=== PATIENT | male | born 1945 | race Caucasian/White ===

== ENCOUNTER → 2018-01-03 | Outpatient (CLI) | payer MEDICARE ==
[2018-01-03 14:49] LABS: Blood Urea Nitrogen 12 mg/dL (9-20)
--- NOTE | 2018-01-04 15:08 | CT ---
EXAMINATION TYPE: CT abdomen pelvis w con DATE OF EXAM: 01/03/2018 COMPARISON: NONE HISTORY: Patient complains of weight loss and epigastric pain after eating. CT DLP: 917 mGycm Automated exposure control for dose reduction was used. TECHNIQUE: Helical acquisition of images was performed from the lung bases through the pelvis. CONTRAST: Performed with Oral Contrast and with IV Contrast, patient injected with 100 mL of Isovue 300. FINDINGS: LUNG BASES: The lung bases demonstrate a right bulla and extensive centrilobular emphysematous change s. Scattered areas of subsegmental atelectasis are also noted. LIVER/GB: Focal area of hypoattenuation in segment IVb near the fissure for the falciform ligament mo st commonly represents focal fatty infiltration. Remainder of the liver also demonstrates generalized hepatic steatosis as the hepatic parenchymal enhancement is considerably less than that of the splee n. No cholelithiasis. No gallbladder wall thickening. PANCREAS: Pancreatic parenchymal atrophy is noted without ductal dilatation. SPLEEN: No significant abnormality is seen. ADRENALS: No significant abnormality is seen. KIDNEYS: Bilateral punctate hypoattenuated renal lesions are seen measuring less than 4 mm and too sm all to accurately characterize. Kidneys enhance and excrete symmetrically without hydronephrosis. FREE AIR: No free air is visualized. REPRODUCTIVE ORGANS: Prostate gland is enlarged and heterogenous containing central zone calcificatio ns and measuring 4.7 cm in transverse dimension. URINARY BLADDER: No significant abnormality is seen. PELVIC ADENOPATHY: No greater than 1 cm short axis lymph nodes are seen within the abdomen or pelvis . OSSEOUS STRUCTURES: No suspicious abnormality. Mild multilevel degenerative changes.. BOWEL: Scattered colonic diverticula are present without pericolonic fat stranding. Appendix is cont rast-filled and within normal limits. No dilated large or small bowel. OTHER: There is severe atherosclerosis of the abdominal aorta and its branches. IMPRESSION: 1. HEPATIC STEATOSIS WITHOUT FOCAL HEPATIC LESION. 2. MULTIPLE BILATERAL HYPOATTENUATED RENAL LESIONS THAT ARE TOO SMALL TO ACCURATELY CHARACTERIZE. NO SUSPICIOUS LESION AT THIS TIME. 3. EXTENSIVE EMPHYSEMA OF THE LUNG BASES.
== END ==
LOC: RADCTMAIN 14:00
PROVIDERS: ATTEND Internal Medicine Gastroenterology
DX: K76.0 Fatty (change of) liver, not elsewhere classified (principal); N28.9 Disorder of kidney and ureter, unspecified; J43.9 Emphysema, unspecified
CPT/HCPCS: 82565; 84520; 74177; 36415; Q9967

== ENCOUNTER → 2018-05-24 | Outpatient (CLI) | payer MEDICARE ==
--- NOTE | 2018-05-24 13:38 | CTL ---
EXAMINATION TYPE: CT Low Dose Lung DATE OF EXAM ORDERED: 05/24/2018 HISTORY: Personal history tobacco use. Lung cancer screening CT DLP: 40.[address] CTDI: 1.00 mGy Automated exposure control for dose reduction was used. SCREENING VISIT: 2 COMPARISON: Prior CT 07/09/2016 TECHNIQUE: Low dose computed tomography scan was performed through the chest at 1 mm thick sections a nd reconstructed images in the coronal plane at [address] DIAGNOSTIC QUALITY: Satisfactory FINDINGS: LUNG NODULES: None. LUNGS: COPD: Severity: Severe and extensive Fibrosis: Severity: Mild Lymph nodes: None Other findings: There are areas of scarring RIGHT PLEURAL SPACE: Effusion: None Calcification: None Thickening: There is biapical pleural thickening Pneumothorax: None LEFT PLEURAL SPACE: Effusion: None Calcification: None Thickening: None Pneumothorax: None HEART: Heart Size: Small Coronary calcification: Present and moderate Pericardial effusion: None OTHER FINDINGS: Upper abdomen: Stable Bony thorax: Unchanged Supraclavicular region: Normal Other: Abdominal aorta is mildly aneurysmal. IMPRESSION: Extensive emphysema is present, no evident lung mass. Coronary artery disease. Thoracic a ortic aneurysm. FOLLOW UP CT CHEST RECOMMENDATION: [address] LUNG RAD: 1
== END | disposition home or self-care (01) ==
LOC: RADCTMAIN 12:33
PROVIDERS: ATTEND Internal Medicine Critical Care Medicine
DX: Z12.2 Encounter for screening for malignant neoplasm of respiratory organs (principal); J43.9 Emphysema, unspecified; I25.10 Atherosclerotic heart disease of native coronary artery without angina pectoris; I71.2 Thoracic aortic aneurysm, without rupture; F17.200 Nicotine dependence, unspecified, uncomplicated

== ENCOUNTER 2019-05-16 08:53 | Day surgery (SDC) | payer MEDICARE ==
[2019-05-14 13:12] VITALS: BMI 16.6
[~2019-05-16 08:53] MED LIST: LACTATED RINGERS 1,000 ML IV SCH; LIDOCAINE 1% 20 ML VIAL (10MG/ML) FOR IV START INTRADERMA PRN
[2019-05-16 09:28] VITALS: TEMP 98.1
[2019-05-16] MEDS ORDERED: PROPOFOL 10 MG/ML 20 ML VIAL IV ONE (09:50)
[2019-05-16] MEDS ORDERED: LIDOCAINE 1% INJ 10MG/ML (20 ML MDV) ONE (09:50)
--- NOTE | 2019-05-16 10:03 | P.PCN ---
Date of Procedure: 05/16/19 Procedure(s) Performed: BRIEF HISTORY: Patient is a 73-year-old, pleasant, white male, scheduled for an upper endoscopy as a part of evaluation of dysphagia to solids and pills for the last few months duration.. PROCEDURE PERFORMED: Esophagogastroduodenoscopy with biopsy. PREOPERATIVE DIAGNOSIS: Intermittent dysphagia to solids and pills for the last few months duration. IV sedation per anesthesia. PROCEDURE: After informed consent was obtained, the patient was brought into the endoscopy unit. IV sedation was administered by Anesthesia under continuous monitoring. Initially the Olympus GIF-140 video endoscope was inserted into the mouth. Esophagus intubated without any difficulty. It was gradually advanced into the stomach and duodenum and carefully examined. The bulb and the second part of the duodenum appeared normal. The scope at this time was withdrawn to the stomach, adequately insufflated with air, and upon careful examination, mucosa of the antrum had mild gastritis and biopsies were done from this area. The, body, cardia and the fundus appeared normal. The scope was then withdrawn into the esophagus. The GE junction was located at 39 cm from the incisors. The esophagus appeared normal. There were no erosions or ulcerations seen. The proximal cervical esophagus was carefully examined and there was no obvious esophagitis, esophageal stricture or Zenker's diverticulum seen. Abscesses were done from the distal esophagus and the patient tolerated the procedure well. IMPRESSION: 1. Normal-appearing esophagus with no evidence of esophagitis or esophageal stricture. 2. Antral gastritis. RECOMMENDATIONS: The findings of this examination were discussed with the pat ient as well as his family. He was advised to follow with the biopsy results. He was advised to continue with a soft diet..
[2019-05-16 10:30] VITALS: BP 110/70; PULSE 54; RESP 18
== END 2019-05-16 10:59 | disposition home or self-care (01) ==
LOC: ORWHC2ENDO 08:53
PROVIDERS: ATTEND Internal Medicine Gastroenterology
DX: K29.50 Unspecified chronic gastritis without bleeding (principal); K20.9 Esophagitis, unspecified; I25.10 Atherosclerotic heart disease of native coronary artery without angina pectoris; J44.9 Chronic obstructive pulmonary disease, unspecified; G47.33 Obstructive sleep apnea (adult) (pediatric); I71.2 Thoracic aortic aneurysm, without rupture; Z79.51 Long term (current) use of inhaled steroids; Z79.82 Long term (current) use of aspirin; Z79.899 Other long term (current) drug therapy; Z87.891 Personal history of nicotine dependence; Z87.01 Personal history of pneumonia (recurrent); Z95.5 Presence of coronary angioplasty implant and graft; Z90.89 Acquired absence of other organs; Z90.49 Acquired absence of other specified parts of digestive tract
CPT/HCPCS: 88305; 88312; 43239; J2001; J2704

== ENCOUNTER → 2019-05-30 | Outpatient (CLI) | payer MEDICARE ==
--- NOTE | 2019-05-30 11:55 | FL ---
Modified barium swallow. HISTORY: Dysphagia. Modified barium swallow was performed with the department of speech pathology. The patient was prese nted with various consistencies of barium. There is no evidence for aspiration or penetration. Pooling of contrast within the valleculae and pi riform sinus. Full report is to follow from the department of speech pathology. Impression: No evidence for aspiration or penetration.
== END | disposition home or self-care (01) ==
LOC: RADFLMAIN 10:48
PROVIDERS: ATTEND Internal Medicine Gastroenterology
DX: R13.10 Dysphagia, unspecified (principal)
CPT/HCPCS: 74230

== ENCOUNTER 2019-06-13 17:05 | Observation (INO) | payer MEDICARE ==
[2019-06-13] MEDS ORDERED: SODIUM CHLORIDE 0.9% 1,000 ML IV STA (17:18)
--- NOTE | 2019-06-13 17:18 | ED ---
Chest Pain HPI - General Chief Complaint: Chest Pain Stated Complaint: chest pain Time Seen by Provider: 06/13/19 17:11 Source: patient, RN notes reviewed, old records reviewed Mode of arrival: wheelchair Limitations: no limitations - History of Present Illness Initial Comments: This is a 73-year-old male the ER for evaluation patient resents today for evaluation regards to chest pain persistent chest pain patient also complains of shortness of breath, not feeling well symptoms of been intermittent throughout the day which improved with nitro. He does have mild history of heart disease with prior history of stent. No other significant complaints no feelings of lightheadedness dizziness no feelings of syncope or near-syncope. No recent change in medications. Symptoms just began today MD Complaint: chest pain -: days(s) Onset: during rest Pain Location: substernal, left chest Pain Radiation: LUE Severity: moderate Severity scale (1-10): 7 Quality: tightness, heaviness Consistency: intermittent Improves With: nitroglycerin Worsens With: nothing Anginal Symptoms: nausea, dyspnea Other Symptoms: cough Treatments Prior to Arrival: none - Related Data Home Medications Medication Instructions Recorded Confirmed Aspirin EC [Ecotrin Low Dose] 81 mg PO HS 07/21/16 06/13/19 Atenolol [Tenormin] 25 mg PO Q48H 05/14/19 06/13/19 Fluticasone/Vilanterol [Breo 1 puff PO RT-DAILY 05/14/19 06/13/19 Ellipta 100-25 Mcg Inhaler] Multivitamins, Thera [Multivitamin 1 tab PO DAILY 05/14/19 06/13/19 (formulary)] Tiotropium Br/Olodaterol HCl 2 puff INHALATION RT-DAILY@1400 05/14/19 06/13/19 [Stiolto Respimat Inhal [place]] Furosemide [Lasix] 20 mg PO DAILY PRN 06/13/19 06/13/19 Omeprazole 20 mg PO BID 06/13/19 06/13/19 Vitamin B Complex 1 cap PO DAILY 06/13/19 06/13/19 Allergies Allergy/AdvReac Type Severity Reaction Status Date / Time No Known Allergies Allergy Verified 06/13/19 19:19 Review of Systems ROS Statement: Those systems with pertinent positive or pertinent negative responses have been documented in the HPI. ROS Other: All systems not noted in ROS Statement are negative. 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, PT STATED HE HAS ENLARGED AORTA(PER CT SCAN -THORACIC AORTIC ANEURYSM 4.2 CM), "HOARSNESS", History of Any Multi-Drug Resistant Organisms: None Reported Past Surgical History: Adenoidectomy, Appendectomy, Heart Catheterization With S tent, Hernia Repair, Orthopedic Surgery, Tonsillectomy Additional Past Surgical History / Comment(s): LET ROTATOR CUFF REPAIR,ANAL FISTULA REPAIR, EGD/COLONOSCOPY,MULTIPLE BASAL CELL 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,AGUILAR INGUINAL HERNIA REPAIR.RIGHT SHOULDER SURGERY X2 Past Anesthesia/Blood Transfusion Reactions: No Reported Reaction Date of Last Stent Placement:: 2005 Past Psychological History: No Psychological Hx Reported Smoking Status: Former smoker Past Alcohol Use History: Occasional Past Drug Use History: None Reported - Past Family History Father Family Medical History: Cancer Additional Family Medical History / Comment(s): TESTICULAR, BONE Mother Family Medical History: Cancer Additional Family Medical History / Comment(s): BONE General Exam Limitations: no limitations General appearance: alert, in no apparent distress Head exam: Present: atraumatic, normocephalic, normal inspection Eye exam: Present: normal appearance, PERRL, EOMI. Absent: scleral icterus, conjunctival injection, periorbital swelling ENT exam: Present: normal exam, mucous membranes moist Neck exam: Present: normal inspection. Absent: tenderness, meningismus, lymphadenopathy Respiratory exam: Present: normal lung sounds bilaterally. Absent: respiratory distress, wheezes, rales, rhonchi, stridor Cardiovascular Exam: Present: regular rate, normal rhythm, normal heart sounds. Absent: systolic murmur, diastolic murmur, rubs, gallop, clicks GI/Abdominal exam: Present: soft, normal bowel sounds. Absent: distended, tenderness, guarding, rebound, rigid Extremities exam: Present: normal inspection, full ROM, normal capillary refill. Absent: tenderness, pedal edema, joint swelling, calf tenderness Back exam: Present: normal inspection Neurological exam: Present: alert, oriented X3, CN II-XII intact Psychiatric exam: Present: normal affect, normal mood Skin exam: Present: warm, dry, intact, normal color. Absent: rash Course Vital Signs 06/13/19 06/13/19 06/13/19 17:08 18:00 19:00 Temperature 97.9 F Pulse Rate 60 52 L 55 L Respiratory 18 18 18 Rate Blood Pressure 98/63 112/73 125/83 O2 Sat by Pulse 94 L 94 L 96 Oximetry - Reevaluation(s) Reevaluation #1: 06/13/19 19:37 Medical record is reviewed Reevaluation #2: 06/13/19 19:37 Patient still with intermittent chest pain currently Reevaluation #3: 06/13/19 19:37 Patient denying significant shortness of breath - Consultations Consultation #1: Spoke with Dr. Pak, who is agreeable for admission Chest Pain MDM - MDM 73 male the ER for evaluation patient was essay for evaluation regards to chest pain patient found to have pneumonia and will admit for chest pain observation with history of heart disease, chest x-ray CTA chest positive for pneumonia negative for PE Disposition Clinical Impression: Acute exacerbation of chronic obstructive airways disease, Chest pain, Community acquired pneumonia Disposition: ADMITTED IP TO THIS HOSP Condition: Fair Is patient prescribed a controlled substance at d/c from ED?: No Referrals: Brendan Chan MD [Primary Care Provider] - 1-2 days
[2019-06-13 17:46] LABS: Basophils # (A) 0.3 k/uL (0-0.2); Basophils % (A) 3 %; Eosinophils # (A) 0.3 k/uL (0-0.7); Eosinophils % (A) 3 %; HGB 13.9 gm/dL (13.0-17.5); Lymphocytes # (A) 2.4 k/uL (1.0-4.8); Lymphocytes % (A) 20 %; MCHC 32.3 g/dL (31.0-37.0); MCV 102.1 fL (80.0-100.0); Macrocytosis Slight; Mean Platelet Volume 6.8; Monocytes # (A) 0.8 k/uL (0-1.0); Monocytes % (A) 7 %; Neutrophils # (A) 8.4 k/uL (1.3-7.7); Neutrophils % (A) 67 %; Platelet Count 276 k/uL (150-450); RBC 4.22 m/uL (4.30-5.90); RDW 12.8 % (11.5-15.5); WBC 12.5 k/uL (3.8-10.6)
[2019-06-13 17:56] LABS: ALT 18 U/L (21-72); AST 32 U/L (17-59); African American GFR (CKD) >90 (>60 ml/min/1.73 sqM); Albumin 4.1 g/dL (3.5-5.0); Alkaline Phosphatase 110 U/L (38-126); Anion Gap 11 mmol/L; Blood Urea Nitrogen 10 mg/dL (9-20); Calcium 9.4 mg/dL (8.4-10.2); Carbon Dioxide 26 mmol/L (22-30); Chloride 100 mmol/L (98-107); Creatine Kinase 59 U/L (55-170); Glucose 76 mg/dL (74-99); Magnesium 1.8 mg/dL (1.6-2.3); Non-African American GFR(CKD) >90 (>60 ml/min/1.73 sqM); Potassium 4.2 mmol/L (3.5-5.1); Sodium 137 mmol/L (137-145); Total Bilirubin 0.4 mg/dL (0.2-1.3); Total Protein 7.9 g/dL (6.3-8.2)
[2019-06-13 18:04] LABS: Partial Thromboplastin Time 26.4 sec (22.0-30.0); Prothrombin Time 10.6 sec (9.0-12.0)
[2019-06-13 18:08] LABS: D-Dimer 1.07 mg/L FEU (<0.60)
--- NOTE | 2019-06-13 18:08 | XR ---
EXAMINATION TYPE: XR chest 2V DATE OF EXAM: 06/13/2019 COMPARISON: 07/21/2016 HISTORY: 73-year-old male with chest pain TECHNIQUE: AP and lateral views FINDINGS: Heart upper limits of normal in size. Atherosclerotic arch calcifications. Diffuse interstitial promi nence. Hyperinflation with flattening of the hemidiaphragms. Small pleural effusions. Patchy peripher al left basilar opacity. Left hilar prominence. IMPRESSION: 1. COPD. Given interstitial changes and small bilateral pleural effusions, correlate for possible sup erimposed mild CHF. 2. Additional focal left basilar atelectasis versus infiltrate. Follow-up after treatment to ensure c learance. 3. Left hilar prominence probably projectional. Findings may reflect pulmonary arterial hypertension. Reassess on patient's follow-up exam after treatment.
--- NOTE | 2019-06-13 19:12 | CT ---
EXAMINATION TYPE: CT angio chest DATE OF EXAM: 06/13/2019 COMPARISON: 05/24/2018 HISTORY: 73-year-old male Chest pain and some difficulty breathing. Assess for PE. TECHNIQUE: Contiguous axial scanning of the chest performed with IV Contrast, patient injected with 1 00 mL of Isovue 370. Coronal/sagittal MIP reconstructions performed. CT DLP: 228 mGycm Automated exposure control for dose reduction was used. FINDINGS: Heart is normal size without pericardial effusion. No flattening of the interventricular septum or re flux of contrast into the hepatic veins. Coronary vessel calcifications are present in remarkable for coronary artery disease. Ectatic ascending aorta 3.6 cm. Mild atherosclerotic arch calcifications. Conventional arch vessel br anching anatomy. Large caliber to the main right and left pulmonary arteries are 3.0 cm each. Satisfactory opacificati on without evidence for pulmonary embolus. Borderline size 8mm left hilar and 1.3 cm subcarinal lymph nodes probably reactive. Increased interstitial changes with advanced emphysema. Irregular patchy opacity within the lingula a nd greater degree of patchy irregular airspace opacity posterior left base. No pleural effusion. Stable intrafissural lymph node measuring 1 cm right midlung. Visualized upper abdomen shows no gross abnormal body. Bones: Osseous destructive process. Mild superior endplate deformity of T7 appears chronic. IMPRESSION: 1. NO PULMONARY EMBOLUS. 2. COPD WITH ADVANCED EMPHYSEMA AND PULMONARY ARTERIAL HYPERTENSION. CAD. 3. IRREGULAR PATCHY DENSITY IN THE [place]A AND TO A GREATER EXTENT WITHIN THE POSTERIOR LEFT BASE. CO RRELATE FOR MULTIFOCAL PNEUMONIA. GIVEN THE IRREGULAR APPEARANCE, RECOMMEND FOLLOW-UP CT IN 3 MONTHS TO ENSURE CLEARANCE.
[2019-06-13] MEDS ORDERED: NITROGLYCERIN SL TABS 0.4 MG TAB SUBLINGUAL PRN (19:34)
[2019-06-13] MEDS ORDERED: IPRATROPIUM-ALBUTEROL 3 ML NEB INHALATION PRN (19:34)
[2019-06-13] MEDS ORDERED: AZITHROMYCIN 500 MG in SODIUM CHLORIDE 0.9% 250 ML IVPB STA (19:34)
[2019-06-13] MEDS ORDERED: PNEUMONIA PROTOCOL UTILIZED 1 EACH MISC PO PRN (19:34)
[2019-06-13] MEDS ORDERED: ASPIRIN 81 MG PO STA (19:34)
[2019-06-13] MEDS ORDERED: MORPHINE SULFATE 2 MG/ML SYRINGE IVP PRN (21:36)
[2019-06-14 07:13] VITALS: RESP 18
[2019-06-14 07:18] LABS: Cholesterol 142 mg/dL (<200); HDL Cholesterol 47 mg/dL (40-60); LDL Cholesterol,Calculated 85 mg/dL (0-99); Triglycerides 49 mg/dL (<150)
--- NOTE | 2019-06-14 07:42 | XR ---
EXAMINATION TYPE: XR chest 2V DATE OF EXAM: 06/14/2019 COMPARISON: Prior chest x-ray 06/13/[address] 06/13/2019 HISTORY: Pneumonia TECHNIQUE: Frontal and lateral views of the chest are obtained. FINDINGS: Prominent lung volumes consistent with underlying COPD are again seen. Interstitium is incr eased. Patchy basilar density is present on the left as noted on patient's prior CT. There is no pleu ral effusion or pneumothorax seen. The cardiac silhouette size is stable, heart is small. Aorta is d ense and ectatic. Prominence of pulmonary artery consistent with pulmonary artery hypertension. The o sseous structures are intact. IMPRESSION: Findings consistent with patient's history of pneumonia. Emphysema. Pulmonary artery hyp ertension.
[2019-06-14] MEDS ORDERED: ENOXAPARIN 40 MG/0.4 ML SYRINGE SQ SCH (09:00)
[2019-06-14] MEDS ORDERED: ASPIRIN 325 MG TAB PO SCH (09:00)
[2019-06-14] MEDS ORDERED: AZITHROMYCIN 500 MG TAB PO SCH (09:00)
--- NOTE | 2019-06-14 10:53 | P.CRDCN ---
History of Present Illness History of present illness: HISTORY OF PRESENTING ILLNESS This is a pleasant 73-year-old male past medical history significant for coronary artery disease status post stent placement to the mid RCA 2008, dyslipidemia, hypertension, COPD and former nicotine dependence. The patient states he quit smoking in March 2019 with a history of smoking since he was 10 years old. He presented with pleuritic chest pain and shortness of breath. He follows in the office with Dr. Scales. We have been asked to see him in consultation for chest pain. He is seen and examined resting comfortably in bed in no acute distress. He complains of a sharp pain in the left thoracic region with intermittent episodes of sharp pain on the right and in the middle of the chest. The pain radiates through to the back at times. It is described as a sharp pain that is worse with deep inspiration or movement of his torso. He also complains of increasing shortness of breath at rest and with exertion. He denies any significant cough, no palpitations, dizziness, nausea, vomiting or diaphoresis. He continues to have some mild sharp chest discomfort at times but states it has improved since admission. DIAGNOSTICS EKG reveals sinus bradycardia with first-degree AV block heart rate of 50, right axis deviation, no acute ST or T-wave abnormalities.. Chest xray on admission reveals COPD, left basilar atelectasis versus infiltrate and left hilar prominence. Repeat. Today reveals pneumonia, emphysema and pulmonary artery hypertension. CTA negative for pulmonary embolism. COPD and pulmonary artery hypertension, irregular patchy density reflective of possible multifocal pneumonia. Laboratory reviewed, CBC 12.5, hemoglobin 13.9, platelets 12.8, was d-dimer 1.07, sodium 137, potassium 4.2, creatinine 0.5, magnesium 1.8, cardiac enzymes negative 3, proBNP 505, LDL 85 and HDL 47. Current cardiac medications include aspirin 81 mg daily, atenolol 25 mg every other day, Lasix 20 mg daily as needed. Most recent stress test performed in the office in April 2019 reveals preserved LV systolic function with ejection fraction 55%. Most recent Lexiscan stress test performed in the office April 2017 was negative for reversible cardiac ischemia. REVIEW OF SYSTEMS At the time of my exam: CONSTITUTIONAL: Denies fever or chills. CARDIOVASCULAR: Complains of pleuritic pain and shortness of breath. Denies orthopnea, PND or palpitations. RESPIRATORY: Denies cough. GASTROINTESTINAL: Denies abdominal pain, diarrhea, constipation, nausea or vomiting. MUSCULOSKELETAL: Denies myalgias. NEUROLOGIC: Denies numbness, tingling or weakness. ENDOCRINE: Denies fatigue, weight change, polydipsia or polyurina. GENITOURINARY: Denies burning, hematuria or urgency with micturation. HEMATOLOGIC: Denies history of anemia or bleeding. PHYSICAL EXAMINATION Blood pressure 125/75 heart rate 52 afebrile and maintaining oxygen saturaiton on nasal cannula. CONSTITUTIONAL: No apparent distress. Frail. HEENT: Head is normocephalic. Pupils are equal, round. Sclerae anicteric. Mucous membranes of the mouth are moist. No JVD. No carotid bruit. CHEST EXAMINATION: Diminished bilaterally with prolonged expiration. Lungs are clear to auscultation. No chest wall tenderness is noted on palpation with intermittent sharp pain with deep breathing. HEART EXAMINATION: Regular rate and rhythm. S1, S2 heard. No murmurs, gallops or rub. ABDOMEN: Soft, nontender. Positive bowel sounds. EXTREMITIES: 2+ peripheral pulses, no lower extremity edema and no calf tenderness. NEUROLOGIC EXAMINATION: Patient is awake, alert and oriented x3. ASSESSMENT Chest pain, pleuritic. Atypical for angina. An acute coronary event has been ruled out. Pneumonia COPD Frail, BMI 17 History of coronary artery disease s/p PCI RCA Hypertension Dyslipidemia Former nicotine dependence PLAN An acute coronary event has been ruled out. Pain is atypical for angina and likely related to underlying pneumonia. Ongoing medical management. Follow up with Dr. Scales upon discharge. Thank you kindly for this consultation. Nurse Practitioner note has been reviewed, I agree with a documented findings and plan of care. Patient was seen and examined. 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, PT STATED HE HAS ENLARGED AORTA(PER CT SCAN -THORACIC AORTIC ANEURYSM 4.2 CM), "HOARSNESS", History of Any Multi-Drug Resistant Organisms: None Reported Past Surgical History: Adenoidectomy, Appendectomy, Heart Catheterization With Stent, Hernia Repair, Orthopedic Surgery, Tonsillectomy Additional Past Surgical History / Comment(s): LET ROTATOR CUFF REPAIR,ANAL FISTULA REPAIR, EGD/COLONOSCOPY,MULTIPLE BASAL CELL 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,AGUILAR INGUINAL HERNIA REPAIR.RIGHT SHOULDER SURGERY X2 Past Anesthesia/Blood Transfusion Reactions: No Reported Reaction Date of Last Stent Placement:: 2005 APPROX Past Psychological History: No Psychological Hx Reported Smoking Status: Former smoker Past Alcohol Use History: Occasional Additional Past Alcohol Use History / Comment(s): STARTED SMOKING AT AGE 12 SMOKED 1.5 PPD, QUIT MAR 2019. DRINKS TWO DRINKS 3 TIMES A WEEK Past Drug Use History: None Reported - Past Family History Father Family Medical History: Cancer Additional Family Medical History / Comment(s): TESTICULAR, BONE Mother Family Medical History: Cancer Additional Family Medical History / Comment(s): BONE Medications and Allergies Home Medications Medication Instructions Recorded Confirmed Type Aspirin EC [Ecotrin Low Dose] 81 mg PO HS 07/21/16 06/13/19 History Atenolol [Tenormin] 25 mg PO Q48H 05/14/19 06/13/19 History Fluticasone/Vilanterol [Breo 1 puff PO RT-DAILY 05/14/19 06/13/19 History Ellipta 100-25 Mcg Inhaler] Multivitamins, Thera [Multivitamin 1 tab PO DAILY 05/14/19 06/13/19 History (formulary)] Tiotropium Br/Olodaterol HCl 2 puff INHALATION RT-DAILY@1400 05/14/19 06/13/19 History [Stiolto Respimat Inhal [place]] Furosemide [Lasix] 20 mg PO DAILY PRN 06/13/19 06/13/19 History Omeprazole 20 mg PO BID 06/13/19 06/13/19 History Vitamin B Complex 1 cap PO DAILY 06/13/19 06/13/19 History Allergies Allergy/AdvReac Type Severity Reaction Status Date / Time No Known Allergies Allergy Verified 06/13/19 19:19 Physical Exam Vitals: Vital Signs Temp Pulse Pulse Pulse Resp BP BP 06/14/19 07:11 97.6 F 52 L 18 125/75 06/14/19 04:00 98.2 F 55 L 55 L 20 101/63 06/14/19 00:00 22 06/13/19 23:50 97.4 F L 62 18 102/59 06/13/19 20:35 24 06/13/19 20:15 97.6 F 60 18 154/78 06/13/19 20:00 97.9 F 53 L 18 137/82 06/13/19 19:00 55 L 18 125/83 06/13/19 18:00 52 L 18 112/73 06/13/19 17:08 97.9 F 60 18 98/63 Pulse Ox 06/14/19 07:11 93 L 06/14/19 04:00 98 06/14/19 00:00 06/13/19 23:50 96 06/13/19 20:35 06/13/19 20:15 93 L 06/13/19 20:00 97 06/13/19 19:00 96 06/13/19 18:00 94 L 06/13/19 17:08 94 L Intake and Output 06/13/19 06/14/19 06/14/19 22:59 06:59 14:59 Intake Total 180 Output Total 300 Balance -300 180 Intake: Oral 180 Output: Urine 300 Other: # Voids 1 1 Weight 54.431 kg Results 06/13/19 17:35 06/13/19 17:35 Cardiac Enzymes 06/13/19 06/13/19 06/14/19 Range/Units 17:35 17:35 00:12 AST 32 (17-59) U/L Troponin I <0.012 <0.012 (0.000-0.034) ng/mL 06/14/19 Range/Units 05:22 AST (17-59) U/L Troponin I <0.012 (0.000-0.034) ng/mL Coagulation 06/13/19 Range/Units 17:35 PT 10.6 (9.0-12.0) sec APTT 26.4 (22.0-30.0) sec Lipids 06/14/19 Range/Units 05:22 Triglycerides 49 (<150) mg/dL Cholesterol 142 (<200) mg/dL HDL Cholesterol 47 (40-60) mg/dL CBC 06/13/19 Range/Units 17:35 WBC 12.5 H (3.8-10.6) k/uL RBC 4.22 L (4.30-5.90) m/uL Hgb 13.9 (13.0-17.5) gm/dL Hct 43.0 (39.0-53.0) % Plt Count 276 (150-450) k/uL Comprehensive Metabolic Panel 06/13/19 Range/Units 17:35 Sodium 137 (137-145) mmol/L Potassium 4.2 (3.5-5.1) mmol/L Chloride 100 (98-107) mmol/L Carbon Dioxide 26 (22-30) mmol/L BUN 10 (9-20) mg/dL Creatinine 0.58 L (0.66-1.25) mg/dL Glucose 76 (74-99) mg/dL Calcium 9.4 (8.4-10.2) mg/dL AST 32 (17-59) U/L ALT 18 L (21-72) U/L Alkaline Phosphatase 110 (38-126) U/L Total Protein 7.9 (6.3-8.2) g/dL Albumin 4.1 (3.5-5.0) g/dL Current Medications Generic Name Dose Route Start Last Admin Trade Name Freq PRN Reason Stop Dose Admin Albuterol/Ipratropium 3 ml 06/13/19 19:34 Duoneb 0.5 Mg-3 Mg/3 Ml Soln INHALATION RT-Q4H PRN shortness of breath Aspirin 325 mg 06/14/19 09:00 06/14/19 09:05 Aspirin PO 325 mg DAILY ARSH Administration Azithromycin 500 mg 06/14/19 09:00 06/14/19 09:05 Zithromax PO 500 mg DAILY ARSH Administration Enoxaparin Sodium 40 mg 06/14/19 09:00 06/14/19 09:05 Lovenox SQ 40 mg DAILY ARSH Administration Ceftriaxone Sodium 1 gm/ 50 mls @ 100 mls/hr 06/14/19 09:00 06/14/19 09:05 Sodium Chloride IVPB 06/17/19 09:01 100 mls/hr Q24HR ARSH Administration Miscellaneous Information 1 each 06/13/19 19:34 Pneumonia Protocol Utilized PO ONCE PRN Per Protocol Morphine Sulfate 2 mg 06/13/19 21:36 Morphine Sulfate (Inj) IVP Q4H PRN Pain/Discomfort Nitroglycerin 0.4 mg 06/13/19 19:34 Nitrostat SUBLINGUAL Q5M PRN Chest Pain Intake and Output 06/13/19 06/14/19 06/14/19 22:59 06:59 14:59 Intake Total 180 Output Total 300 Balance -300 180 Intake: Oral 180 Output: Urine 300 Other: # Voids 1 1 Weight 54.431 kg 06/13/19 17:35 06/13/19 17:35
[2019-06-14 11:19] VITALS: BP 114/71; PULSE 66; TEMP 97.7
[2019-06-14] MEDS ORDERED: PANTOPRAZOLE 40 MG/10 ML VIAL IVP SCH (12:30)
--- NOTE | 2019-06-14 15:37 | P.HPIM ---
History of Present Illness H&P Date: 06/14/19 Chief Complaint: Ribcage pain History of physical and discharge summary This is a 73-year-old cachectic gentleman with history of CAD, chest pain, angina, COPD, osteoarthritis, pneumonia, prior nicotine dependence, EtOH abuse, presented to the ER with left chest, nipple line stabbing pain radiating to the right chest, further radiating to mid sternal, awakened him from sleep at 5 AM yesterday morning accompanied by increased shortness of breath. Reports pain intensifies with inspiration, exertion. Throughout the day patient took a total of 3 nitroglycerin sublingual with no relief. Denies increased coughing, fevers or chills. Denies being around anyone ill. Afebrile, WBC 12.5 .Denies lightheadedness, dizziness or focal deficits. VSS. Maintaining O2 sats in the high 90s on 2 L nasal cannula. Patient wears 2 L nasal cannula every night and when necessary throughout the day .Troponins negative 3, EKG reported sinus bradycardia, first-degree AV block. Chest x-ray on admission reported COPD, left basilar atelectasis versus infiltrate and left hilar prominence. Follow-up chest x-ray reported pneumonia, emphysema and pulmonary artery hypertension. D- dimer elevated, 1.07. CTA negative for PE, reporting irregular patchy density, possible multifocal pneumonia of left lobe. Reports he recently saw someone and had echo performed 4 weeks ago -records being obtained .Patient recently quit smoking in March 2019-reports he had smoked up to one and a half packs per day 61 years. Consumes 3 cocktails of rye whiskey every Tuesdayday Tuesday at the [employer]. He reports chronic dysphagia, negative recent EGD [address] Linh Staples. Proceeded with barium swallow reporting no aphthous of aspiration, penetration. Pooling of contract noted within the valleculae/piriform sinus. Patient also reports chronic decompensation, unable to ambulate beyond 20 feet. Electrolytes, renal function within normal limits hemoglobin 13.9, platelets 276. Currently reports bilateral posterior shoulder blade pain, no anterior chest pain. Cardiology consulted. Review of Systems ROS Statement: Those systems with pertinent positive or pertinent negative responses have been documented in the HPI. ROS Other: All systems not noted in ROS Statement are negative. 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, PT STATED HE HAS ENLARGED AORTA(PER CT SCAN -THORACIC AORTIC ANEURYSM 4.2 CM), "HOARSNESS", History of Any Multi-Drug Resistant Organisms: None Reported Past Surgical History: Adenoidectomy, Appendectomy, Heart Catheterization With Stent, Hernia Repair, Orthopedic Surgery, Tonsillectomy Additional Past Surgical History / Comment(s): LET ROTATOR CUFF REPAIR,ANAL FISTULA REPAIR, EGD/COLONOSCOPY,MULTIPLE BASAL CELL 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,AGUILAR INGUINAL HERNIA REPAIR.RIGHT SHOULDER SURGERY X2 Past Anesthesia/Blood Transfusion Reactions: No Reported Reaction Date of Last Stent Placement:: 2005 Past Psychological History: No Psychological Hx Reported Smoking Status: Former smoker Past Alcohol Use History: Occasional Additional Past Alcohol Use History / Comment(s): STARTED SMOKING AT AGE 12 SMOKED 1.5 PPD, QUIT MAR 2019. DRINKS TWO DRINKS 3 TIMES A WEEK Past Drug Use History: None Reported - Past Family History Father Family Medical History: Cancer Additional Family Medical History / Comment(s): TESTICULAR, BONE Mother Family Medical History: Cancer Additional Family Medical History / Comment(s): BONE Medications and Allergies Home Medications Medication Instructions Recorded Confirmed Type Aspirin EC [Ecotrin Low Dose] 81 mg PO HS 07/21/16 06/13/19 History Atenolol [Tenormin] 25 mg PO Q48H 05/14/19 06/13/19 History Fluticasone/Vilanterol [Breo 1 puff PO RT-DAILY 05/14/19 06/13/19 History Ellipta 100-25 Mcg Inhaler] Multivitamins, Thera [Multivitamin 1 tab PO DAILY 05/14/19 06/13/19 History (formulary)] Tiotropium Br/Olodaterol HCl 2 puff INHALATION RT-DAILY@1400 05/14/19 06/13/19 History [Stiolto Respimat Inhal [place]] Furosemide [Lasix] 20 mg PO DAILY PRN 06/13/19 06/13/19 History Omeprazole 20 mg PO BID 06/13/19 06/13/19 History Vitamin B Complex 1 cap PO DAILY 06/13/19 06/13/19 History Acetaminophen Tab [Tylenol Tab] 650 mg PO Q6H PRN #1 tablet 06/14/19 Rx Azithromycin [Zithromax] 500 mg PO DAILY #5 tab 06/14/19 Rx predniSONE 20 mg PO DAILY #10 tab 06/14/19 Rx Allergies Allergy/AdvReac Type Severity Reaction Status Date / Time No Known Allergies Allergy Verified 06/13/19 19:19 Physical Exam Vitals: Vital Signs Temp Pulse Pulse Pulse Resp BP BP 06/14/19 11:18 97.7 F 66 18 114/71 06/14/19 07:11 97.6 F 52 L 18 125/75 06/14/19 04:00 98.2 F 55 L 55 L 20 101/63 06/14/19 00:00 22 06/13/19 23:50 97.4 F L 62 18 102/59 06/13/19 20:35 24 06/13/19 20:15 97.6 F 60 18 154/78 06/13/19 20:00 97.9 F 53 L 18 137/82 06/13/19 19:00 55 L 18 125/83 06/13/19 18:00 52 L 18 112/73 06/13/19 17:08 97.9 F 60 18 98/63 Pulse Ox 06/14/19 11:18 98 06/14/19 07:11 93 L 06/14/19 04:00 98 06/14/19 00:00 06/13/19 23:50 96 06/13/19 20:35 06/13/19 20:15 93 L 06/13/19 20:00 97 06/13/19 19:00 96 06/13/19 18:00 94 L 06/13/19 17:08 94 L Intake and Output 06/13/19 06/14/19 06/14/19 22:59 06:59 14:59 Intake Total 420 Output Total 300 900 Balance -300 -480 Intake: Oral 420 Output: Urine 300 900 Other: # Voids 1 1 Weight 54.431 kg PHYSICAL EXAM: VITAL SIGNS: As above GENERAL: Cachectic, frail 73-year-old male, sitting up in bed, no acute distress HEENT: Conjunctivae normal. eyes normal. NECK: No JVD. No thyroid enlargement. No LNs CARDIOVASCULAR: S1, S2 regular.. No murmur RESPIRATION: Breath sounds diminished in the bases. No rhonchi or crackles. No wheezing. ABDOMEN: Soft, nontender . No guarding. no masses palpable. No ascites, No hepatosplenomegaly.Bowel sounds heard. LEGS: No edema. no swelling PSYCHIATRY: Alert and oriented X3, mood and affect normal. NERVOUS SYSTEM: Cranial N 2-12 grossly normal. Moves all 4 limbs. Diffuse weakness No focal deficits. Strength and sensation grossly intact.. Skin: no lesions, no rash Lymphatic system. No LN neck axilla. Results CBC & Chem 7: 06/13/19 17:35 06/13/19 17:35 Labs: Abnormal Lab Results - Last 24 Hours (Table) 06/13/19 06/13/19 06/13/19 Range/Units 17:35 17:35 17:35 WBC 12.5 H (3.8-10.6) k/uL RBC 4.22 L (4.30-5.90) m/uL MCV 102.1 H (80.0-100.0) fL Neutrophils # 8.4 H (1.3-7.7) k/uL Basophils # 0.3 H (0-0.2) k/uL D-Dimer 1.07 H (<0.60) mg/L FEU Creatinine 0.58 L (0.66-1.25) mg/dL ALT 18 L (21-72) U/L Thrombosis Risk Factor Assmnt - Choose All That Apply Any of the Below Risk Factors Present?: Yes Each Risk Factor Represents 2 Points: Age 61-74 years Other congenital or acquired thrombophilia - If yes, enter type in comment: No Thrombosis Risk Factor Assessment Total Risk Factor Score: 2 Thrombosis Risk Factor Assessment Level: Low Risk Assessment and Plan Assessment: Atypical chest pain, pleuritic in nature. acute coronary syndrome ruled out as per cardiology, secondary to suspected left multifocal pneumonia, community- acquired, possibly aspiration. Irregular patchy density in the lingula and within the posterior left base, possible multifocal pneumonia. OP Follow-up CT in 3 months secondary to a regular appearance, with PCP. COPD with advanced emphysema Pulmonary arterial hypertension CAD, history of cardiac stent Extended ascending aorta 3.6 cm Borderline left hilar and subcarinal lymph nodes, probably reactive Moderate protein calorie malnutrition, BMI 17.2 Chronic dysphagia Hypertension Hyperlipidemia Former nicotine dependence Alcohol use Plan: Continue current medication regime ,monitoring and symptomatic treatment. All meds have been reviewed and resumed accordingly. GI and DVT prophylaxis in place. Evaluated by cardiology with no intervention recommended at this time, further outpatient follow-up recommended. Cleared by cardiology for discharge. Patient is being discharged home on antibiotics, steroids,continue on PPI, instructions to follow-up at the PCPs office on either Tuesday or Tuesday prior to the holiday. Patient was evaluated by physical therapy and received muscle strengthening exercises that he could perform at home. Patient instructed to proceed with scheduling speech therapy as previously ordered. Diet intake encouraged including 3 protein shakes daily with alcohol cessation addressed. Patient is being discharged home in a stable condition with guarded prognosis. The impression and plan of care has been dictated as directed. : I performed a history and examination of this patient, discussed the same with the dictator. I agree with the dictator's note ,documented as a scribe. Any additional findings or plans will be noted.
[2019-06-15] MEDS ORDERED: PANTOPRAZOLE 40 MG TABLET PO SCH (07:30)
== END 2019-06-14 14:35 | disposition home or self-care (01) ==
LOC: EC 17:05 → 1SOBS 19:35
PROVIDERS: ADMIT Family Medicine; ATTEND Family Medicine
DX: J43.9 Emphysema, unspecified (principal); J18.9 Pneumonia, unspecified organism; R07.9 Chest pain, unspecified; E44.0 Moderate protein-calorie malnutrition; Z68.1 Body mass index [BMI] 19.9 or less, adult; E78.5 Hyperlipidemia, unspecified; I10 Essential (primary) hypertension; I25.10 Atherosclerotic heart disease of native coronary artery without angina pectoris; I27.21 Secondary pulmonary arterial hypertension; I44.0 Atrioventricular block, first degree; R64 Cachexia; Z79.82 Long term (current) use of aspirin; Z79.899 Other long term (current) drug therapy; Z85.828 Personal history of other malignant neoplasm of skin; Z87.891 Personal history of nicotine dependence; Z95.5 Presence of coronary angioplasty implant and graft
CPT/HCPCS: 96367; 96372; 96375; 96361; 96365; 99285; 36415; 93005; 97110; 97162; 85379; 83880; 80061; 80053; 82550; 83690; 83735; 84484 ×2; 85025; 85610; 85730; 87040; 71046 ×2; 71275; G0378 ×2; J0456; J1650; J0696 ×2; J2270; C9113; Q9967

== ENCOUNTER → 2019-07-02 | Outpatient (CLI) | payer MEDICARE ==
--- NOTE | 2019-07-03 09:27 | XR ---
EXAMINATION TYPE: XR chest 2V DATE OF EXAM: 07/02/2019 COMPARISON: Prior chest x-ray 06/14/[address] 06/13/2019 HISTORY: Shortness of breath, hypoxia, pneumonia TECHNIQUE: Frontal and lateral views of the chest are obtained. FINDINGS: Hyperinflation is consistent with underlying COPD. There is blunting of the left costophre al angle as noted on prior exam. Prominence of the pulmonary artery is stable consistent with pulmon chavez artery hypertension, the aorta is dense, aneurysmal. Heart is small. No evident pneumothorax. The re are coronary artery calcifications. IMPRESSION: Emphysema. There may be some residual basilar atelectasis or pneumonia, difficult to exc lude small effusion. Pulmonary artery hypertension. Aortic aneurysm.
== END | disposition home or self-care (01) ==
LOC: RADXRMAIN 15:59
PROVIDERS: ATTEND Family Medicine
DX: J43.9 Emphysema, unspecified (principal); G47.36 Sleep related hypoventilation in conditions classified elsewhere; I27.21 Secondary pulmonary arterial hypertension; I71.9 Aortic aneurysm of unspecified site, without rupture
CPT/HCPCS: 71046

== ENCOUNTER → 2019-08-09 | Outpatient (CLI) | payer MEDICARE ==
--- NOTE | 2019-08-09 14:57 | XR ---
EXAM TYPE: LUMBAR SPINE X RAY SERIES COMPARISON: NONE HISTORY: Pain TECHNIQUE: 3 views are submitted. FINDINGS: Subsegmental changes at the lung bases. There is hypertrophic and degenerative disc disease at all le vels compatible with multilevel mild degenerative disc disease. Vascular calcifications of the aorta measuring a maximal dimension of 2.8 cm. Facet arthropathy noted. No compression deformities. IMPRESSION: 1. Multilevel mild degenerative disc disease and facet arthropathy. 2. Abdominal aortic ectasia measuring 2.8 cm. 3. Basilar consolidation correlate for atelectasis versus infiltrate.
== END | disposition home or self-care (01) ==
LOC: RAD 14:32
PROVIDERS: ATTEND Family Medicine
DX: M51.36 Other intervertebral disc degeneration, lumbar region (principal); M46.96 Unspecified inflammatory spondylopathy, lumbar region; I77.811 Abdominal aortic ectasia
CPT/HCPCS: 72100

== ENCOUNTER 2019-08-30 10:23 | Inpatient (IN) | payer MEDICARE ==
[2019-08-30] MEDS ORDERED: ADENOSINE 3 MG/ML 2 ML VIAL IVP ONE (10:33)
[2019-08-30] MEDS ORDERED: DILTIAZEM 5 MG/ML 5 ML VIAL IVP STA (10:47)
[2019-08-30] MEDS ORDERED: SODIUM CHLORIDE 0.9% 1,000 ML IV STA (10:48)
[2019-08-30 11:08] LABS: Basophils # (A) 0.3 k/uL (0-0.2); Basophils % (A) 2 %; Eosinophils # (A) 0.3 k/uL (0-0.7); Eosinophils % (A) 2 %; HCT 44.3 % (39.0-53.0); HGB 14.4 gm/dL (13.0-17.5); Lymphocytes # (A) 2.9 k/uL (1.0-4.8); Lymphocytes % (A) 23 %; MCH 32.4 pg (25.0-35.0); MCHC 32.5 g/dL (31.0-37.0); MCV 99.8 fL (80.0-100.0); Mean Platelet Volume 8.8; Monocytes # (A) 0.7 k/uL (0-1.0); Monocytes % (A) 6 %; Neutrophils # (A) 8.3 k/uL (1.3-7.7); Neutrophils % (A) 65 %; Platelet Count 245 k/uL (150-450); RBC 4.44 m/uL (4.30-5.90); RDW 12.2 % (11.5-15.5); WBC 12.9 k/uL (3.8-10.6)
[2019-08-30 11:26] LABS: ALT 28 U/L (4-49); AST 43 U/L (17-59); African American GFR (CKD) >90 (>60 ml/min/1.73 sqM); Albumin 4.3 g/dL (3.5-5.0); Alkaline Phosphatase 162 U/L (38-126); Anion Gap 12 mmol/L; Blood Urea Nitrogen 17 mg/dL (9-20); Calcium 9.6 mg/dL (8.4-10.2); Carbon Dioxide 27 mmol/L (22-30); Chloride 100 mmol/L (98-107); Creatine Kinase 51 U/L (55-170); Glucose 84 mg/dL (74-99); Magnesium 1.9 mg/dL (1.6-2.3); Non-African American GFR(CKD) 88 (>60 ml/min/1.73 sqM); Potassium 4.2 mmol/L (3.5-5.1); Sodium 139 mmol/L (137-145); Total Bilirubin 0.7 mg/dL (0.2-1.3)
[2019-08-30 11:29] LABS: Partial Thromboplastin Time 25.2 sec (22.0-30.0); Prothrombin Time 10.8 sec (9.0-12.0)
--- NOTE | 2019-08-30 11:34 | XR ---
EXAMINATION TYPE: XR chest 2V DATE OF EXAM: 08/30/2019 COMPARISON: 07/02/2019 TECHNIQUE: PA and lateral views submitted. HISTORY: Dysrhythmia FINDINGS: Hyperinflation of the lungs. Atherosclerotic change of aorta. Right apical pleural thickening. Right- sided consolidation. Hyperinflation suggests COPD. Left-sided small effusion or pleural thickening. N o overt failure. IMPRESSION: 1. Increasing right-sided infiltrate correlate for pneumonia. 2. COPD with stable left-sided pleural effusion or thickening.
--- NOTE | 2019-08-30 12:25 | ED ---
Arrhythmia/Palpitations HPI - General Chief Complaint: Arrhythmia/Palpitations Stated Complaint: sob Source: patient Mode of arrival: ambulatory - History of Present Illness Initial Comments: The patient is a 73-year-old male with past medical history of coronary artery disease and COPD who presents to the emergency room with reported heart rate. He sees Dr. Chan in office. He states Dr. Chan recently was sent to see Dr. Valdez because of a aortic aneurysm that was seen on chest x-ray. He had his appointment today. He showed up in office and his vitals were obtained which showed the patient had a heart rate of 190s. Because of this they immediately sent him to the nurse for evaluation. The patient does report palpitations and shortness of breath at this time. States he has this same symptom every night before he goes to bed. States that when he gets undressed that his heart race. He will lay in bed for approximately 10 minutes and his symptoms were resolved. He denies a history of cardiac arrhythmia. No chest pain with the episode. Denies any headaches or visual changes. No nausea or vomiting. No ripping or tearing sensation to his back. Denies any numbness, we akness in his lower extremities. He does have 1 stent in his heart. Sees Dr. Scales in office. There are no other alleviating, Perceptin or modifying factors - Related Data Home Medications Medication Instructions Recorded Confirmed Aspirin EC [Ecotrin Low Dose] 81 mg PO DAILY 07/21/16 08/30/19 Fluticasone/Vilanterol [Breo 1 puff PO RT-DAILY 05/14/19 08/30/19 Ellipta 100-25 Mcg Inhaler] Multivitamins, Thera [Multivitamin 1 tab PO DAILY 05/14/19 08/30/19 (formulary)] Tiotropium Br/Olodaterol HCl 2 puff INHALATION RT-DAILY@1400 05/14/19 08/30/19 [Stiolto Respimat Inhal [place]] Omeprazole 20 mg PO BID 06/13/19 08/30/19 Vitamin B Complex 1 cap PO DAILY 06/13/19 08/30/19 Allergies Allergy/AdvReac Type Severity Reaction Status Date / Time No Known Allergies Allergy Verified 08/30/19 11:37 Review of Systems ROS Statement: Those systems with pertinent positive or pertinent negative responses have been documented in the HPI. ROS Other: All systems not noted in ROS Statement are negative. 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, PT STATED HE HAS ENLARGED AORTA(PER CT SCAN -THORACIC AORTIC ANEURYSM 4.2 CM), "HOARSNESS", History of Any Multi-Drug Resistant Organisms: None Reported Past Surgical History: Adenoidectomy, Appendectomy, Heart Catheterization With Stent, Hernia Repair, Orthopedic Surgery, Tonsillectomy Additional Past Surgical History / Comment(s): LET ROTATOR CUFF REPAIR,ANAL FISTULA REPAIR, EGD/COLONOSCOPY,MULTIPLE BASAL CELL 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,AGUILAR INGUINAL HERNIA REPAIR.RIGHT SHOULDER SURGERY X2 Past Anesthesia/Blood Transfusion Reactions: No Reported Reaction Date of Last Stent Placement:: 2005 Past Psychological History: No Psychological Hx Reported Smoking Status: Former smoker Past Alcohol Use History: Occasional Past Drug Use History: None Reported - Past Family History Father Family Medical History: Cancer Additional Family Medical History / Comment(s): TESTICULAR, BONE Mother Family Medical History: Cancer Additional Family Medical History / Comment(s): BONE Course Vital Signs 08/30/19 08/30/19 08/30/19 10:25 10:30 10:35 Temperature 97.5 F L Pulse Rate 188 H 192 H 180 H Respiratory 20 20 18 Rate Blood Pressure 60/33 65/48 72/43 O2 Sat by Pulse 90 L 91 L 96 Oximetry 08/30/19 08/30/19 08/30/19 10:45 10:50 10:55 Temperature Pulse Rate 165 H 161 H 134 H Respiratory 16 18 16 Rate Blood Pressure 92/37 86/73 98/72 O2 Sat by Pulse 98 96 96 Oximetry 08/30/19 08/30/19 08/30/19 11:00 11:31 14:04 Temperature Pulse Rate 84 91 77 Respiratory 16 18 19 Rate Blood Pressure 103/73 101/76 110/79 O2 Sat by Pulse 97 98 97 Oximetry 08/30/19 16:34 Temperature Pulse Rate 72 Respiratory 20 Rate Blood Pressure 124/81 O2 Sat by Pulse 98 Oximetry EKG Findings - EKG Comments: EKG Findings:: EKG demonstrates a ventricular tachycardia which shows a ve ntricular rate of 186. QRS 80. QTC of 478. There is some ST depression which is likely secondary to rate EKG was done at 1031. Second EKG performed at 1038 shows atrial fibrillation with a rate of 153. QRS 74. QTC of 475. ST depression has improved. No acute ST segment elevations. 3rd EKG at 1055 demonstrates an irregular rhythm likely atrial fibrillation with a rate of 128. VA interval 136. QRS 70. QTC of 411. EKG read as sinus tachycardia however no P waves present. Fourth EKG done at 1057 that was rates the patient has converted back to normal sinus rhythm with a rate of 82. VA interval 198. QRS 88. QTC of 429. No acute ST segment elevations or depressions concerning for ischemic changes Medical Decision Making - Medical Decision Making Upon arrival the patient was promptly placed in a trauma bay 2. A thorough hi story and physical exam is performed. Patient is placed on the cardiac cath rn. Evaluation does demonstrate a heart rate in the 130s. Blood pressure is 70 systolic. I do have the patient attempted vagal maneuvers however these are unsuccessful. The patient is requesting to lay flat and states his symptoms were resolved. It does improve to the 150s. We did obtain EKG which does demonstrate concern for atrial fibrillation. Bedside cardiac ultrasound was performed. I did provide the patient with 2.5 mg of Cardizem. Patient does have marked improvement in his heart rate. The patient then converts to normal sinus rhythm. Repeat EKG was performed. Laboratory studies were conducted whi ch demonstrated a white blood count of 12.9. Chest x-ray demonstrates right- sided infiltrates and COPD. Reevaluated the patient does have marked improvement in his blood pressure. At this time the patient will be admitted to the hospital. He does agree hospital admission. A call discuss case with Dr. Chan who accepted admission. I did heparinize the patient is a does not have any contra indications. He remained in stable condition awaiting a bed on the floor - Lab Data Result diagrams: 08/30/19 10:34 08/30/19 10:34 Lab Results 08/30/19 08/30/19 08/30/19 Range/Units 10:34 10:34 10:34 WBC 12.9 H (3.8-10.6) k/uL RBC 4.44 (4.30-5.90) m/uL Hgb 14.4 (13.0-17.5) gm/dL Hct 44.3 (39.0-53.0) % MCV 99.8 (80.0-100.0) fL MCH 32.4 (25.0-35.0) pg MCHC 32.5 (31.0-37.0) g/dL RDW 12.2 (11.5-15.5) % Plt Count 245 (150-450) k/uL Neutrophils % 65 % Lymphocytes % 23 % Monocytes % 6 % Eosinophils % 2 % Basophils % 2 % Neutrophils # 8.3 H (1.3-7.7) k/uL Lymphocytes # 2.9 (1.0-4.8) k/uL Monocytes # 0.7 (0-1.0) k/uL Eosinophils # 0.3 (0-0.7) k/uL Basophils # 0.3 H (0-0.2) k/uL PT 10.8 (9.0-12.0) sec INR 1.0 (<1.2) APTT 25.2 (22.0-30.0) sec Sodium 139 (137-145) mmol/L Potassium 4.2 (3.5-5.1) mmol/L Chloride 100 (98-107) mmol/L Carbon Dioxide 27 (22-30) mmol/L Anion Gap 12 mmol/L BUN 17 (9-20) mg/dL Creatinine 0.83 (0.66-1.25) mg/dL Est GFR (CKD-EPI)AfAm >90 (>60 ml/min/1.73 sqM) Est GFR (CKD-EPI)NonAf 88 (>60 ml/min/1.73 sqM) Glucose 84 (74-99) mg/dL Calcium 9.6 (8.4-10.2) mg/dL Magnesium 1.9 (1.6-2.3) mg/dL Total Bilirubin 0.7 (0.2-1.3) mg/dL AST 43 (17-59) U/L ALT 28 (4-49) U/L Alkaline Phosphatase 162 H (38-126) U/L Creatine Kinase 51 L (55-170) U/L Troponin I (0.000-0.034) ng/mL Total Protein 8.0 (6.3-8.2) g/dL Albumin 4.3 (3.5-5.0) g/dL TSH 6.500 H (0.465-4.680) mIU/L Free T4 (0.78-2.19) ng/dL 08/30/19 08/30/19 Range/Units 10:34 10:34 WBC (3.8-10.6) k/uL RBC (4.30-5.90) m/uL Hgb (13.0-17.5) gm/dL Hct (39.0-53.0) % MCV (80.0-100.0) fL MCH (25.0-35.0) pg MCHC (31.0-37.0) g/dL RDW (11.5-15.5) % Plt Count (150-450) k/uL Neutrophils % % Lymphocytes % % Monocytes % % Eosinophils % % Basophils % % Neutrophils # (1.3-7.7) k/uL Lymphocytes # (1.0-4.8) k/uL Monocytes # (0-1.0) k/uL Eosinophils # (0-0.7) k/uL Basophils # (0-0.2) k/uL PT (9.0-12.0) sec INR (<1.2) APTT (22.0-30.0) sec Sodium (137-145) mmol/L Potassium (3.5-5.1) mmol/L Chloride (98-107) mmol/L Carbon Dioxide (22-30) mmol/L Anion Gap mmol/L BUN (9-20) mg/dL Creatinine (0.66-1.25) mg/dL Est GFR (CKD-EPI)AfAm (>60 ml/min/1.73 sqM) Est GFR (CKD-EPI)NonAf (>60 ml/min/1.73 sqM) Glucose (74-99) mg/dL Calcium (8.4-10.2) mg/dL Magnesium (1.6-2.3) mg/dL Total Bilirubin (0.2-1.3) mg/dL AST (17-59) U/L ALT (4-49) U/L Alkaline Phosphatase (38-126) U/L Creatine Kinase (55-170) U/L Troponin I 0.017 (0.000-0.034) ng/mL Total Protein (6.3-8.2) g/dL Albumin (3.5-5.0) g/dL TSH (0.465-4.680) mIU/L Free T4 1.35 (0.78-2.19) ng/dL Disposition Clinical Impression: Atrial fibrillation Disposition: ADMITTED IP TO THIS HOSP Condition: Stable Is patient prescribed a controlled substance at d/c from ED?: No Decision to Admit Reason: Admit from EC Decision Date: 08/30/19 Decision Time: 12:25
[2019-08-30] MEDS ORDERED: NALOXONE 0.4 MG/ML 1 ML VIAL IV PRN (12:46)
[2019-08-30] MEDS ORDERED: CYCLOBENZAPRINE 10 MG TAB PO STA (12:58)
[2019-08-30] MEDS ORDERED: HEPARIN SODIUM,PORCINE 5,000 UNIT/ML 1 ML VIAL IV ONE (13:19)
[2019-08-30] MEDS ORDERED: HEPARIN SODIUM,PORCINE 5,000 UNIT/ML 1 ML VIAL IV PRN (13:19)
[2019-08-30] MEDS: SODIUM CHLORIDE 0.9% 1,000 ML IV SCH (14:51)
[2019-08-30] MEDS: HEPARIN SOD,PORK IN 0.45% NACL 25,000 UNIT in 0.45% NACL 1 250ML.BAG IV SCH (14:57)
[2019-08-30] MEDS: PANTOPRAZOLE 40 MG TABLET PO SCH (22:32)
[2019-08-31] MEDS: CYCLOBENZAPRINE 10 MG TAB PO SCH ×4 (00:29→20:54)
[2019-08-31] MEDS: SODIUM CHLORIDE 0.9% 1,000 ML IV SCH ×2 (02:24→15:13)
[2019-08-31 04:21] LABS: Basophils % (A) 0 %; Eosinophils # (A) 0.3 k/uL (0-0.7); Eosinophils % (A) 4 %; HCT 37.5 % (39.0-53.0); Lymphocytes # (A) 2.3 k/uL (1.0-4.8); Lymphocytes % (A) 34 %; MCH 32.1 pg (25.0-35.0); MCHC 32.1 g/dL (31.0-37.0); Mean Platelet Volume 7.5; Monocytes # (A) 0.5 k/uL (0-1.0); Monocytes % (A) 7 %; Neutrophils # (A) 3.6 k/uL (1.3-7.7); Neutrophils % (A) 52 %; Platelet Count 174 k/uL (150-450); RBC 3.75 m/uL (4.30-5.90); RDW 12.3 % (11.5-15.5); WBC 6.8 k/uL (3.8-10.6)
[2019-08-31] MEDS: PANTOPRAZOLE 40 MG TABLET PO SCH (06:38)
[2019-08-31 06:51] LABS: INR 1.1 (<1.2); Prothrombin Time 11.5 sec (9.0-12.0)
[2019-08-31] MEDS: SYMBICORT 80-4.5 MCG INHALER INHALATION SCH ×2 (08:32→20:39)
[2019-08-31] MEDS: FORMOTEROL FUMARATE 20 MCG/2 ML NEBU INHALATION SCH ×2 (08:32→19:27)
[2019-08-31] MEDS: IPRATROPIUM 0.5 MG/2.5 ML NEBU INHALATION SCH ×2 (08:33→11:59)
[2019-08-31] MEDS ORDERED: NON FORMULARY DRUG (Vitamin B Complex [Vitamin B Complex] 1 CAP) PO SCH (09:00)
[2019-08-31] MEDS: ASPIRIN 81 MG PO SCH (09:26)
[2019-08-31] MEDS: MULTIVITAMINS, THERA 1 EACH TAB PO SCH (09:27)
--- NOTE | 2019-08-31 10:01 | P.CRDCN ---
<Eve Solomon E - Last Filed: 08/31/19 09:44> History of Present Illness Consult date: 08/31/19 Requesting physician: Brendan Chan Chief complaint: SVT History of present illness: This is a pleasant 73-year-old gentleman with known history of coronary artery disease and prior stent placement in 2008 to the RCA, hypertension, hyperlipidemia, COPD, prior nicotine dependence. He used to follow with Dr. 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 The patient follows with Dr. Chan as his primary care doctor, he was referred to go to see Dr. Pina because of an enlarged aorta. He was at the appointment with Dr. Pina yesterday, states that at the nurse in his office was unable to get a blood pressure, Dr. Pina evaluated the patient and noted his heart rate to be extremely fast and patient was sent over to the emergency room for further evaluation. According to the patient, over the past one year or so, on a daily basis, when he exerts himself or when he gets himself ready for bed he notices his heart to race extremely fast, he feels it in his epigastric area. He usually lays down and within 5-15 minutes the symptoms dissipate. He had the same symptoms while he was in the office at Dr. Pina's yesterday. He has never been told in the past to have any history of any arrhythmias. His chest x-ray on presentation here showed an increasing right sided infiltrate, possible pneumonia. COPD was stable left-sided pleural effusion. His EKG on arrival here showed a supraventricular tachycardia, his heart rate was in the 160-170 range, blood pressure at that time was 70 systolic. They attempted with vagal maneuvers to cardiovert the patient, with no success. Patient was given IV Cardizem bolus, repeat EKG was performed, patient converted ultimately to normal sinus rhythm. I pressure on arrival here 60/30 with a heart rate of 180-190, 90% on room air, afebrile. His blood pressure this morning 120/70 with a heart rate in the 70s, 95% on 2 L of oxygen. Afebrile. White blood cell count on presentation here 12.9, 6.8 this morning, hemoglobin on admission 14.4, 12.0 this morning, platelet count 174. Sodium 139, potassium 4.2, BUN 17, creatinine 0.8, magnesium 1.9. Alkaline phosphatase 162, troponin 0.017, 0.301, 0.238. TSH 6.5, free T4 1.3. Patient's most recent EKG shows a normal sinus rhythm with a first-degree AV block and possible right ventricular hypertrophy. He did have an EKG performed here in May 2019 which showed a sinus bradycardia, right axis deviation, right ventricular hypertrophy. Most recent echocardiogram with Doppler study was performed in April 2019 revealed a preserved left ventricular systolic function, most recent Dian scan was performed in April 2017 negative for any reversible ischemia. At the time of my examination this morning, patient feels back to his usual state, no complaints. 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, PT STATED HE HAS ENLARGED AORTA(PER CT SCAN -THORACIC AORTIC ANEURYSM 4.2 CM), "HOARSNESS", History of Any Multi-Drug Resistant Organisms: None Reported Past Surgical History: Adenoidectomy, Appendectomy, Heart Catheterization With Stent, Hernia Repair, Orthopedic Surgery, Tonsillectomy Additional Past Surgical History / Comment(s): LET ROTATOR CUFF REPAIR,ANAL FISTULA REPAIR, EGD/COLONOSCOPY,MULTIPLE BASAL CELL 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,AGUILAR INGUINAL HERNIA REPAIR.RIGHT SHOULDER SURGERY X2 Past Anesthesia/Blood Transfusion Reactions: No Reported Reaction Date of Last Stent Placement:: 2005 Past Psychological History: No Psychological Hx Reported Smoking Status: Former smoker Past Alcohol Use History: Occasional Past Drug Use History: None Reported - Past Family History Father Family Medical History: Cancer Additional Family Medical History / Comment(s): TESTICULAR, BONE Mother Family Medical History: Cancer Additional Family Medical History / Comment(s): BONE Medications and Allergies Home Medications Medication Instructions Recorded Confirmed Type Aspirin EC [Ecotrin Low Dose] 81 mg PO DAILY 07/21/16 08/30/19 History Fluticasone/Vilanterol [Breo 1 puff PO RT-DAILY 05/14/19 08/30/19 History Ellipta 100-25 Mcg Inhaler] Multivitamins, Thera [Multivitamin 1 tab PO DAILY 05/14/19 08/30/19 History (formulary)] Tiotropium Br/Olodaterol HCl 2 puff INHALATION RT-DAILY@1400 05/14/19 08/30/19 History [Stiolto Respimat Inhal [place]] Omeprazole 20 mg PO BID 06/13/19 08/30/19 History Vitamin B Complex 1 cap PO DAILY 06/13/19 08/30/19 History Cyclobenzaprine [Flexeril] 10 mg PO TID 08/30/19 08/30/19 History Allergies Allergy/AdvReac Type Severity Reaction Status Date / Time No Known Allergies Allergy Verified 08/30/19 11:37 Physical Exam Vitals: Vital Signs Temp Pulse Pulse Resp BP BP Pulse Ox 08/31/19 08:00 98.6 F 72 18 124/75 95 08/31/19 04:00 71 18 116/76 97 08/31/19 00:00 74 20 08/30/19 20:00 98 F 74 18 105/68 98 08/30/19 17:00 97.6 F 79 20 130/80 92 L 08/30/19 16:34 72 20 124/81 98 08/30/19 16:00 79 20 08/30/19 14:04 77 19 110/79 97 08/30/19 11:31 91 18 101/76 98 08/30/19 11:00 84 16 103/73 97 08/30/19 10:55 134 H 16 98/72 96 08/30/19 10:50 161 H 18 86/73 96 08/30/19 10:45 165 H 16 92/37 98 08/30/19 10:35 180 H 18 72/43 96 08/30/19 10:30 192 H 20 65/48 91 L 08/30/19 10:25 97.5 F L 188 H 20 60/33 90 L Intake and Output 08/30/19 08/31/19 08/31/19 22:59 06:59 14:59 Intake Total 1416.46 240 Output Total 500 Balance 1416.46 -500 240 Intake: Intake, IV Titration 656.46 Amount Heparin Sod,Pork in 0.45% 56.46 NaCl 25,000 unit In 0.45 % NaCl 1 250ml.bag @ 12 UNITS/KG/HR 7.087 mls/hr IV .Q24H [facility] Rx#: [id number] Sodium Chloride 0.9% 1, 600 000 ml @ 75 mls/hr IV . [id number] [facility] Rx#:[id number] Oral 760 240 Output: Urine 500 Other: Voiding Method Toilet Toilet Toilet Urinal Urinal Urinal Weight 57.7 kg CONSTITUTIONAL: No apparent distress. Frail. HEENT: Head is normocephalic. Pupils are equal, round. Sclerae anicteric. Mucous membranes of the mouth are moist. No JVD. No carotid bruit. CHEST EXAMINATION: Diminished bilaterally with prolonged expiration. Lungs are clear to auscultation. No chest wall tenderness is noted on palpation with intermittent sharp pain with deep breathing. HEART EXAMINATION: Regular rate and rhythm. S1, S2 heard. No murmurs, gallops or rub. ABDOMEN: Soft, nontender. Positive bowel sounds. EXTREMITIES: 2+ peripheral pulses, no lower extremity edema and no calf tenderness. NEUROLOGIC EXAMINATION: Patient is awake, alert and oriented x3. Results 08/31/19 04:03 08/30/19 10:34 Cardiac Enzymes 08/30/19 08/30/19 08/30/19 Range/Units 10:34 10:34 17:46 AST 43 (17-59) U/L Troponin I 0.017 0.301 H* (0.000-0.034) ng/mL 08/30/19 Range/Units 22:33 AST (17-59) U/L Troponin I 0.238 H* (0.000-0.034) ng/mL Coagulation 08/30/19 08/30/19 08/31/19 Range/Units 10:34 21:03 04:03 PT 10.8 11.5 (9.0-12.0) sec APTT 25.2 86.4 H (22.0-30.0) sec 08/31/19 Range/Units 04:03 PT (9.0-12.0) sec APTT 61.9 H (22.0-30.0) sec CBC 08/30/19 08/31/19 Range/Units 10:34 04:03 WBC 12.9 H 6.8 (3.8-10.6) k/uL RBC 4.44 3.75 L (4.30-5.90) m/uL Hgb 14.4 12.0 L (13.0-17.5) gm/dL Hct 44.3 37.5 L (39.0-53.0) % Plt Count 245 174 (150-450) k/uL Comprehensive Metabolic Panel 08/30/19 Range/Units 10:34 Sodium 139 (137-145) mmol/L Potassium 4.2 (3.5-5.1) mmol/L Chloride 100 (98-107) mmol/L Carbon Dioxide 27 (22-30) mmol/L BUN 17 (9-20) mg/dL Creatinine 0.83 (0.66-1.25) mg/dL Glucose 84 (74-99) mg/dL Calcium 9.6 (8.4-10.2) mg/dL AST 43 (17-59) U/L ALT 28 (4-49) U/L Alkaline Phosphatase 162 H (38-126) U/L Total Protein 8.0 (6.3-8.2) g/dL Albumin 4.3 (3.5-5.0) g/dL Current Medications Generic Name Dose Route Start Last Admin Trade Name Freq PRN Reason Stop Dose Admin Aspirin 81 mg 08/31/19 09:00 08/31/19 09:26 Aspirin PO 81 mg DAILY [facility] Administration Budesonide/Formoterol Fumarate 2 puff 08/31/19 08:00 08/31/19 08:32 Symbicort 80-4.5 Mcg Inhaler INHALATION Not Given RT-BID [facility] Cyclobenzaprine HCl 10 mg 08/30/19 22:00 08/31/19 08:18 Flexeril PO Not Given TID [facility] Formoterol Fumarate 20 mcg 08/31/19 08:00 08/31/19 08:32 Perforomist INHALATION Not Given RT-BID [facility] Heparin Sodium (Porcine) 0 unit 08/30/19 13:19 Heparin IV PER PROTOCOL PRN Low PTT Protocol Sodium Chloride 1,000 mls @ 75 mls/hr 08/30/19 13:00 08/31/19 02:24 Saline 0.9% IV Not Given .[id number] [facility] Heparin Sodium/Sodium Chloride 250 mls @ 7.087 mls/hr 08/30/19 13:30 08/30/19 22:55 25,000 unit/ Sodium Chloride IV 10 units/kg/hr .Q24H [facility] 5.906 mls/hr Titration Protocol 12 UNITS/KG/HR Ipratropium [place] 0.5 mg 08/31/19 08:00 08/31/19 08:33 Atrovent Nebulized INHALATION Not Given RT-QID [facility] Multivitamins 1 each 08/31/19 09:00 08/31/19 09:27 Theragran PO 1 each DAILY [facility] Administration Naloxone HCl 0.2 mg 08/30/19 12:46 Narcan IV Q2M PRN Opioid Reversal Pantoprazole Sodium 40 mg 08/30/19 19:00 08/31/19 06:38 Protonix PO 40 mg AC-BRKFST [facility] Administration Intake and Output 08/30/19 08/31/19 08/31/19 22:59 06:59 14:59 Intake Total 1416.46 240 Output Total 500 Balance 1416.46 -500 240 Intake: Intake, IV Titration 656.46 Amount Heparin Sod,Pork in 0.45% 56.46 NaCl 25,000 unit In 0.45 % NaCl 1 250ml.bag @ 12 UNITS/KG/HR 7.087 mls/hr IV .Q24H [facility] Rx#: [id number] Sodium Chloride 0.9% 1, 600 000 ml @ 75 mls/hr IV . [id number] [facility] Rx#:[id number] Oral 760 240 Output: Urine 500 Other: Voiding Method Toilet Toilet Toilet Urinal Urinal Urinal Weight 57.7 kg 08/31/19 04:03 08/30/19 10:34 EKG Interpretations (text) Initial EKG on presentation here showed a supraventricular tachycardia with a heart rate of 180-190 Assessment and Plan Plan: Assessment and plan #1 supraventricular tachycardia #2 known history of coronary artery disease with prior stenting of the RCA in 2008 #3 hypotension on admission, likely secondary to supraventricular tachycardia #4 history of hypertension #5 hyperlipidemia #6 COPD #7 prior history of smoking #8 abnormality in troponin, could be secondary to rapid rate from supraventricular tachycardia #9 hypothyroidism, TSH 6.5 with a free T4 of 1.3 Plan We will obtain an echocardiogram with Doppler study. Further recommendations to follow. DNP note has been reviewed, I agree with a documented findings and plan of care. Patient was seen and examined. <Su Alarcon - Last Filed: 08/31/19 13:40> Physical Exam Vitals: Vital Signs Temp Pulse Pulse Resp BP BP Pulse Ox 08/31/19 11:31 97.9 F 73 20 127/90 98 08/31/19 09:38 72 18 08/31/19 08:00 98.6 F 72 18 124/75 95 08/31/19 04:00 71 18 116/76 97 08/31/19 00:00 74 20 08/30/19 20:00 98 F 74 18 105/68 98 08/30/19 17:00 97.6 F 79 20 130/80 92 L 08/30/19 16:34 72 20 124/81 98 08/30/19 16:00 79 20 08/30/19 14:04 77 19 110/79 97 Intake and Output 08/30/19 08/31/19 08/31/19 22:59 06:59 14:59 Intake Total 1416.46 240 Output Total 500 200 Balance 1416.46 -500 40 Intake: Intake, IV Titration 656.46 Amount Heparin Sod,Pork in 0.45% 56.46 NaCl 25,000 unit In 0.45 % NaCl 1 250ml.bag @ 12 UNITS/KG/HR 7.087 mls/hr IV .Q24H [facility] Rx#: [id number] Sodium Chloride 0.9% 1, 600 000 ml @ 75 mls/hr IV . [id number] [facility] Rx#:[id number] Oral 760 240 Output: Urine 500 200 Other: Voiding Method Toilet Toilet Toilet Urinal Urinal Urinal Weight 57.7 kg Results 08/31/19 04:03 08/30/19 10:34 Cardiac Enzymes 08/30/19 08/30/19 Range/Units 17:46 22:33 Troponin I 0.301 H* 0.238 H* (0.000-0.034) ng/mL Coagulation 08/30/19 08/31/19 08/31/19 Range/Units 21:03 04:03 04:03 PT 11.5 (9.0-12.0) sec APTT 86.4 H 61.9 H (22.0-30.0) sec CBC 08/31/19 Range/Units 04:03 WBC 6.8 (3.8-10.6) k/uL RBC 3.75 L (4.30-5.90) m/uL Hgb 12.0 L (13.0-17.5) gm/dL Hct 37.5 L (39.0-53.0) % Plt Count 174 (150-450) k/uL Current Medications Generic Name Dose Route Start Last Admin Trade Name Freq PRN Reason Stop Dose Admin Aspirin 81 mg 08/31/19 09:00 08/31/19 09:26 Aspirin PO 81 mg DAILY [facility] Administration Budesonide/Formoterol Fumarate 2 puff 08/31/19 08:00 08/31/19 08:32 Symbicort 80-4.5 Mcg Inhaler INHALATION Not Given RT-BID [facility] Cyclobenzaprine HCl 10 mg 08/30/19 22:00 08/31/19 08:18 Flexeril PO Not Given TID [facility] Formoterol Fumarate 20 mcg 08/31/19 08:00 08/31/19 08:32 Perforomist INHALATION Not Given RT-BID [facility] Heparin Sodium (Porcine) 0 unit 08/30/19 13:19 Heparin IV PER PROTOCOL PRN Low PTT Protocol Sodium Chloride 1,000 mls @ 75 mls/hr 08/30/19 13:00 08/31/19 02:24 Saline 0.9% IV Not Given .[id number] [facility] Heparin Sodium/Sodium Chloride 250 mls @ 7.087 mls/hr 08/30/19 13:30 08/30/19 22:55 25,000 unit/ Sodium Chloride IV 10 units/kg/hr .Q24H [facility] 5.906 mls/hr Titration Protocol 12 UNITS/KG/HR Ipratropium [place] 0.5 mg 08/31/19 08:00 08/31/19 11:59 Atrovent Nebulized INHALATION Not Given RT-QID [facility] Multivitamins 1 each 08/31/19 09:00 08/31/19 09:27 Theragran PO 1 each DAILY [facility] Administration Naloxone HCl 0.2 mg 08/30/19 12:46 Narcan IV Q2M PRN Opioid Reversal Pantoprazole Sodium 40 mg 08/30/19 19:00 08/31/19 06:38 Protonix PO 40 mg AC-BRKFST [facility] Administration Senna/Docusate Sodium 2 each 08/31/19 12:00 02/07/20 12:16 Senokot-S PO 2 each BID [facility] Administration Intake and Output 08/30/19 08/31/19 08/31/19 22:59 06:59 14:59 Intake Total 1416.46 240 Output Total 500 200 Balance 1416.46 -500 40 Intake: Intake, IV Titration 656.46 Amount Heparin Sod,Pork in 0.45% 56.46 NaCl 25,000 unit In 0.45 % NaCl 1 250ml.bag @ 12 UNITS/KG/HR 7.087 mls/hr IV .Q24H [facility] Rx#: [id number] Sodium Chloride 0.9% 1, 600 000 ml @ 75 mls/hr IV . [id number] [facility] Rx#:[id number] Oral 760 240 Output: Urine 500 200 Other: Voiding Method Toilet Toilet Toilet Urinal Urinal Urinal Weight 57.7 kg 08/31/19 04:03 08/30/19 10:34
--- NOTE | 2019-08-31 11:00 | ECHOF ---
Referral Reason:svt MEASUREMENTS -------- HEIGHT: 182.9 cm WEIGHT: 57.6 kg BP: 124/75 IVSd: 0.8 cm (0.6 - 1.1) LVIDd: 3.6 cm (3.9 - 5.3) LVPWd: 1.0 cm (0.6 - 1.1) IVSs: 1.1 cm LVIDs: 1.9 cm LVPWs: 1.2 cm Ao Diam: 3.0 cm (2.0 - 3.7) AV Cusp: 1.9 cm (1.5 - 2.6) LA Diam: 3.5 cm (2.7 - 3.8) MV EXCURSION: 32.625 mm (> 18.000) MV EF SLOPE: 41 mm/s (70 - 150) EPSS: 1.1 cm MV E Karthik: 0.89 m/s MV DecT: 208 ms MV A Karthik: 0.83 m/s MV E/A Ratio: 1.06 RAP: 5.00 mmHg RVSP: 7.79 mmHg FINDINGS -------- Sinus rhythm. This was a technically adequate study. The left ventricular size is normal. Left ventricular wall thickness is normal. Overall left vent ricular systolic function is low-normal with, an EF between 50 - 55 %. The right ventricle is normal in size. The left atrial size is normal. The right atrial size is normal. Aortic valve is trileaflet and is mildly thickened. The mitral valve is normal. There is trace mitral regurgitation. The tricuspid valve appears structurally normal. Mild tricuspid regurgitation present. Right vent ricular systolic pressure is normal at < 35 mmHg. There is no pulmonic regurgitation present. The aortic root size is normal. Normal inferior vena cava with normal inspiratory collapse consistent with estimated right atrial pre ssure of 5 mmHg. There is no pericardial effusion. CONCLUSIONS -------- 1. Sinus rhythm. 2. This was a technically adequate study. 3. The left ventricular size is normal. 4. Left ventricular wall thickness is normal. 5. Overall left ventricular systolic function is low-normal with, an EF between 50 - 55 %. 6. The right ventricle is normal in size. 7. The left atrial size is normal. 8. The right atrial size is normal. 9. Aortic valve is trileaflet and is mildly thickened. 10. The mitral valve is normal. 11. There is trace mitral regurgitation. 12. The tricuspid valve appears structurally normal. 13. Mild tricuspid regurgitation present. 14. Right ventricular systolic pressure is normal at < 35 mmHg. 15. There is no pulmonic regurgitation present. 16. The aortic root size is normal. 17. Normal inferior vena cava with normal inspiratory collapse consistent with estimated right atrial pressure of 5 mmHg. 18. There is no pericardial effusion. KEY ACCOUNT COORDINATOR: Silvia Carrasquillo RDCS
[2019-08-31] MEDS: SENNOSIDES-DOCUSATE SODIUM 1 EACH TAB PO SCH ×2 (12:16→20:53)
[2019-08-31] MEDS ORDERED: NITROGLYCERIN SL TABS 0.4 MG TAB SUBLINGUAL PRN (13:43)
[2019-08-31] MEDS ORDERED: ASPIRIN 325 MG TAB PO STA (13:43)
[2019-08-31] MEDS ORDERED: ALPRAZolam 0.5 MG TAB PO PRN (13:43)
[2019-08-31] MEDS ORDERED: ATORVASTATIN 80 MG TAB PO STA (13:43)
[2019-08-31] MEDS ORDERED: ALPRAZolam 0.25 MG TAB PO PRN (13:43)
[2019-08-31] MEDS ORDERED: SODIUM CHLORIDE 0.9% 1,000 ML in EMPTY BAG 1 BAG IV ONE (13:43)
--- NOTE | 2019-08-31 14:16 | P.HPIM ---
History of Present Illness H&P Date: 08/31/19 Chief Complaint: Shortness of breath, palpitations This is a 73-year-old gentleman with history of CAD with stent, COPD, prior nicotine dependence, 3 drinks every Tuesday,Tuesday, Tuesday aortic aneurysm, sent to the ER per Dr. Pina. Patient was at Dr. Pina's office, vitals reported heart rate of 190s and patient was immediately sent to the ER. Patient reports shortness of breath and palpitations, which he reports has been going on for about a year, occurs with exertion-most noticeable when he is getting ready for bed. States symptoms of mid epigastric heart racing usually resolve within 10-15 minutes of lying flat in bed. Denies prior arrhythmias. Denies chest pain, denies shortness of breath. Denies lightheadedness or dizziness. Afebrile, WBC 12.9. Heart rate on admission 188, hypotensive with blood pressure 60/33, mean arterial pressure 42, maintaining O2 sats of 90 on room air. EKG reporting SVT, heart rates in the high 180s/190 .EKG Vasovagal maneuver attempted, unsuccessfull. Heart rate improved into the 150s with patient lying flat. Another EKG suggestive of a irregular rhythm,possibly A. fib. IV Cardizem bolus administered, converted to sinus rhythm. Blood pressure improved with mean arterial pressure up into the mid 50s. Vital signs stable currently with blood pressure 120/70, heart rate in the 70s and remains in sinus rhythm. Maintaining O2 sats in the 90s on 2 L nasal cannula. WBC now normal. Evaluated by cardiology, echo ordered. Troponin 0.017, 0.301, 0.238. Electrolytes within normal limits. Chest x-ray reporting increasing right-sided infiltrate, possible pneumonia, COPD, stable with left-sided pleural effusion or thickening. Patient reports coughing up more in the morning thick yellow brownish sputum. TSH 6.5, free T4 1.35. Review of Systems ROS Statement: Those systems with pertinent positive or pertinent negative responses have been documented in the HPI. ROS Other: All systems not noted in ROS Statement are negative. 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, PT STATED HE HAS ENLARGED AORTA(PER CT SCAN -THORACIC AORTIC ANEURYSM 4.2 CM), "HOARSNESS", History of Any Multi-Drug Resistant Organisms: None Reported Past Surgical History: Adenoidectomy, Appendectomy, Heart Catheterization With Stent, Hernia Repair, Orthopedic Surgery, Tonsillectomy Additional Past Surgical History / Comment(s): LET ROTATOR CUFF REPAIR,ANAL FISTULA REPAIR, EGD/COLONOSCOPY,MULTIPLE BASAL CELL 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,AGUILAR INGUINAL HERNIA REPAIR.RIGHT SHOULDER SURGERY X2 Past Anesthesia/Blood Transfusion Reactions: No Reported Reaction Date of Last Stent Placement:: 2005 Past Psychological History: No Psychological Hx Reported Smoking Status: Former smoker Past Alcohol Use History: Occasional Past Drug Use History: None Reported - Past Family History Father Family Medical History: Cancer Additional Family Medical History / Comment(s): TESTICULAR, BONE Mother Family Medical History: Cancer Additional Family Medical History / Comment(s): BONE Medications and Allergies Home Medications Medication Instructions Recorded Confirmed Type Aspirin EC [Ecotrin Low Dose] 81 mg PO DAILY 07/21/16 08/30/19 History Fluticasone/Vilanterol [Breo 1 puff PO RT-DAILY 05/14/19 08/30/19 History Ellipta 100-25 Mcg Inhaler] Multivitamins, Thera [Multivitamin 1 tab PO DAILY 05/14/19 08/30/19 History (formulary)] Tiotropium Br/Olodaterol HCl 2 puff INHALATION RT-DAILY@1400 05/14/19 08/30/19 History [Stiolto Respimat Inhal [place]] Omeprazole 20 mg PO BID 06/13/19 08/30/19 History Vitamin B Complex 1 cap PO DAILY 06/13/19 08/30/19 History Cyclobenzaprine [Flexeril] 10 mg PO TID 08/30/19 08/30/19 History Allergies Allergy/AdvReac Type Severity Reaction Status Date / Time No Known Allergies Allergy Verified 08/30/19 11:37 Physical Exam Vitals: Vital Signs Temp Pulse Pulse Resp BP BP Pulse Ox 08/31/19 09:38 72 18 08/31/19 08:00 98.6 F 72 18 124/75 95 08/31/19 04:00 71 18 116/76 97 08/31/19 00:00 74 20 08/30/19 20:00 98 F 74 18 105/68 98 08/30/19 17:00 97.6 F 79 20 130/80 92 L 08/30/19 16:34 72 20 124/81 98 08/30/19 16:00 79 20 08/30/19 14:04 77 19 110/79 97 08/30/19 11:31 91 18 101/76 98 08/30/19 11:00 84 16 103/73 97 08/30/19 10:55 134 H 16 98/72 96 08/30/19 10:50 161 H 18 86/73 96 08/30/19 10:45 165 H 16 92/37 98 08/30/19 10:35 180 H 18 72/43 96 08/30/19 10:30 192 H 20 65/48 91 L 08/30/19 10:25 97.5 F L 188 H 20 60/33 90 L Intake and Output 08/30/19 08/31/19 08/31/19 22:59 06:59 14:59 Intake Total 1416.46 240 Output Total 500 Balance 1416.46 -500 240 Intake: Intake, IV Titration 656.46 Amount Heparin Sod,Pork in 0.45% 56.46 NaCl 25,000 unit In 0.45 % NaCl 1 250ml.bag @ 12 UNITS/KG/HR 7.087 mls/hr IV .Q24H [facility] Rx#: [id number] Sodium Chloride 0.9% 1, 600 000 ml @ 75 mls/hr IV . [id number] [facility] Rx#:[id number] Oral 760 240 Output: Urine 500 Other: Voiding Method Toilet Toilet Toilet Urinal Urinal Urinal Weight 57.7 kg PHYSICAL EXAM: VITAL SIGNS: As above GENERAL: Sitting up on stretcher, no acute distress HEENT: Conjunctivae normal. eyes normal. NECK: No JVD. No thyroid enlargement. No LNs CARDIOVASCULAR: S1, S2 regular.. No murmur RESPIRATION: Respiratory effort mildly increased .Breath sounds diminished in the bases. No rhonchi or crackles. ABDOMEN: Soft, nontender . No guarding. no masses palpable. No ascites, No hepatosplenomegaly.Bowel sounds heard. LEGS: No edema. no swelling PSYCHIATRY: Alert and oriented X3, mood and affect normal. NERVOUS SYSTEM: Cranial N 2-12 grossly normal. Moves all 4 limbs. Diffuse weakness No focal deficits. Strength and sensation grossly intact.. Skin: no lesions, no rash Lymphatic system. No LN neck axilla. Results CBC & Chem 7: 08/31/19 04:03 08/30/19 10:34 Labs: Abnormal Lab Results - Last 24 Hours (Table) 08/30/19 08/30/19 08/30/19 Range/Units 10:34 10:34 17:46 WBC 12.9 H (3.8-10.6) k/uL RBC (4.30-5.90) m/uL Hgb (13.0-17.5) gm/dL Hct (39.0-53.0) % Neutrophils # 8.3 H (1.3-7.7) k/uL Basophils # 0.3 H (0-0.2) k/uL APTT (22.0-30.0) sec Alkaline Phosphatase 162 H (38-126) U/L Creatine Kinase 51 L (55-170) U/L Troponin I 0.301 H* (0.000-0.034) ng/mL TSH 6.500 H (0.465-4.680) mIU/L 08/30/19 08/30/19 08/31/19 Range/Units 21:03 22:33 04:03 WBC (3.8-10.6) k/uL RBC 3.75 L (4.30-5.90) m/uL Hgb 12.0 L (13.0-17.5) gm/dL Hct 37.5 L (39.0-53.0) % Neutrophils # (1.3-7.7) k/uL Basophils # (0-0.2) k/uL APTT 86.4 H (22.0-30.0) sec Alkaline Phosphatase (38-126) U/L Creatine Kinase (55-170) U/L Troponin I 0.238 H* (0.000-0.034) ng/mL TSH (0.465-4.680) mIU/L 08/31/19 Range/Units 04:03 WBC (3.8-10.6) k/uL RBC (4.30-5.90) m/uL Hgb (13.0-17.5) gm/dL Hct (39.0-53.0) % Neutrophils # (1.3-7.7) k/uL Basophils # (0-0.2) k/uL APTT 61.9 H (22.0-30.0) sec Alkaline Phosphatase (38-126) U/L Creatine Kinase (55-170) U/L Troponin I (0.000-0.034) ng/mL TSH (0.465-4.680) mIU/L Thrombosis Risk Factor Assmnt - Choose All That Apply Any of the Below Risk Factors Present?: Yes Each Factor Represents 1 point: Abnormal pulmonary function (COPD) Other Risk Factors: Yes Each Risk Factor Represents 2 Points: Age 61-74 years, Malignancy Other congenital or acquired thrombophilia - If yes, enter type in comment: No Thrombosis Risk Factor Assessment Total Risk Factor Score: 5 Thrombosis Risk Factor Assessment Level: High Risk Assessment and Plan Assessment: SVT, converted to sinus rhythm. Possible paroxysmal atrial fibrillation with RVR. Hypotension, present on admission, secondary to the above, resolved. Mildly elevated troponins, possibly acute coronary syndrome, possibly secondary to SVT, cardiology following Right-sided infiltrate, possible pneumonia per chest x-ray COPD, stable CAD with history of stent Hypertension lipidemia Prior nicotine dependence Hypothyroidism Positive alcohol use on Mondays,Wednesdays,Fridays- TSH 6.5, free T4 1.35, repeat levels outpatient Plan: Continue on current medication regime ,monitoring and symptomatic treatment. Anticoagulated on heparin drip. Scheduled for cardiac catheterization tomorrow. Sputum culture ordered .Pulmonary consulted .All meds have been reviewed and resumed accordingly. Echo pending. Complains of constipation, Senokot added to med regime. Gentle IV fluid hydration. Patient does not have a history of hypothyroidism and will need to repeat thyroid levels outpatient. The impression and plan of care has been dictated as directed. : I performed a history and examination of this patient, discussed the same with the dictator. I agree with the dictator's note ,documented as a scribe. Any ad ditional findings or plans will be noted.
[2019-08-31] MEDS ORDERED: PNEUMONIA PROTOCOL UTILIZED 1 EACH MISC PO PRN (14:18)
[2019-08-31] MEDS ORDERED: AZITHROMYCIN 500 MG in SODIUM CHLORIDE 0.9% 250 ML IVPB STA (14:18)
[2019-08-31] MEDS ORDERED: IPRATROPIUM-ALBUTEROL 3 ML NEB INHALATION PRN (14:18)
[2019-08-31] MEDS: IPRATROPIUM-ALBUTEROL 3 ML NEB INHALATION SCH ×2 (16:59→20:39)
--- NOTE | 2019-08-31 17:03 | P.CNPUL ---
History of Present Illness Consult date: 08/31/19 Requesting physician: rBendan Chan Reason for consult: other Chief complaint: Tachycardia, SVT History of present illness: 73-year-old white male patient of Dr. Chan with known history of advanced COPD with a baseline FEV1 of 22% of predicted, on home oxygen at 2 L/m, hypertension, hyperlipidemia, CAD with previous stenting, former smoker. Patient follows with Dr. Teran in the pulmonary office and recently his Breo Ellipta and Stiolto were switched to Trelegy. Patient also has Ventolin rescue inhaler. Apparently patient was Dr. Pina's office where he was referred because of a aortic aneurysm, and his vitals were obtained which showed a heart rate of 190 BPM and the patient was sent into the emergency department for evaluation. Patient did report palpitations and shortness of breath on presentation, reportedly he had been having symptoms like that every night before going to bed, and usually his symptoms resolve after about 10 minutes of waiting in bed. No chest pain, no cough or congestion, no fever no hemoptysis, no numbness or weakness in his lower extremities. EKG was obtained showing supraventricular tachycardia with a rate of [address] depression, patient was asked to perform some vagal maneuvers with no success, he then requested to lay down flat, and follow-up EKG showed atrial fibrillation with a rate of 153 with improvement of the ST depression, follow-up EKG in 20 minutes showed A. fib with improved rate at 128, and subsequent EKG showed patient converted back to normal sinus rhythm with a rate of [address] segment elevations or depressions. Patient was heparinized, his blood pressure did improve, chest x- ray was obtained showing right-sided infiltrates and COPD. Labs were reviewed showing white blood cell count of 12.9, hemoglobin of 14.4, electrolytes were within normal limits, BUN of 17 creatinine of 0.83 alk phos was elevated at 162, AST and ALT were within normal limits, TSH was high at 6.5. He's had no fever, denies any cough or congestion, his breathing is at his baseline. Patient was started on empiric antibiotics in the form of azithromycin and ceftriaxone for possibility of right lower lobe pneumonia Review of Systems All systems: negative Constitutional: Denies chills, Denies fever Eyes: denies blurred vision, denies pain Ears, nose, mouth and throat: Denies headache, Denies sore throat Cardiovascular: Reports palpitations, Reports shortness of breath, Denies chest pain Respiratory: Reports dyspnea, Reports home oxygen, Denies cough Gastrointestinal: Denies abdominal pain, Denies diarrhea, Denies nausea, Denies vomiting Musculoskeletal: Denies myalgias Integumentary: Denies pruritus, Denies rash Neurological: Denies numbness, Denies weakness Psychiatric: Denies anxiety, Denies depression Endocrine: Denies fatigue, Denies weight change 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, PT STATED HE HAS ENLARGED AORTA(PER CT SCAN -THORACIC AORTIC ANEURYSM 4.2 CM), "HOARSNESS", History of Any Multi-Drug Resistant Organisms: None Reported Past Surgical History: Adenoidectomy, Appendectomy, Heart Catheterization With Stent, Hernia Repair, Orthopedic Surgery, Tonsillectomy Additional Past Surgical History / Comment(s): LET ROTATOR CUFF REPAIR,ANAL FISTULA REPAIR, EGD/COLONOSCOPY,MULTIPLE BASAL CELL 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,AGUILAR INGUINAL HERNIA REPAIR.RIGHT SHOULDER SURGERY X2 Past Anesthesia/Blood Transfusion Reactions: No Reported Reaction Date of Last Stent Placement:: 2005 Past Psychological History: No Psychological Hx Reported Smoking Status: Former smoker Past Alcohol Use History: Occasional Past Drug Use History: None Reported - Past Family History Father Family Medical History: Cancer Additional Family Medical History / Comment(s): TESTICULAR, BONE Mother Family Medical History: Cancer Additional Family Medical History / Comment(s): BONE Medications and Allergies Home Medications Medication Instructions Recorded Confirmed Type Aspirin EC [Ecotrin Low Dose] 81 mg PO DAILY 07/21/16 08/30/19 History Fluticasone/Vilanterol [Breo 1 puff PO RT-DAILY 05/14/19 08/30/19 History Ellipta 100-25 Mcg Inhaler] Multivitamins, Thera [Multivitamin 1 tab PO DAILY 05/14/19 08/30/19 History (formulary)] Tiotropium Br/Olodaterol HCl 2 puff INHALATION RT-DAILY@1400 05/14/19 08/30/19 History [Stiolto Respimat Inhal [place]] Omeprazole 20 mg PO BID 06/13/19 08/30/19 History Vitamin B Complex 1 cap PO DAILY 06/13/19 08/30/19 History Cyclobenzaprine [Flexeril] 10 mg PO TID 08/30/19 08/30/19 History Allergies Allergy/AdvReac Type Severity Reaction Status Date / Time No Known Allergies Allergy Verified 08/30/19 11:37 Physical Exam Vitals: Vital Signs Temp Pulse Resp BP Pulse Ox 08/31/19 15:25 98 F 77 20 117/76 97 08/31/19 11:31 97.9 F 73 20 127/90 98 08/31/19 09:38 72 18 08/31/19 08:00 98.6 F 72 18 124/75 95 08/31/19 04:00 71 18 116/76 97 08/31/19 00:00 74 20 08/30/19 20:00 98 F 74 18 105/68 98 08/30/19 17:00 97.6 F 79 20 130/80 92 L Intake and Output 08/31/19 08/31/19 08/31/19 06:59 14:59 22:59 Intake Total 480 Output Total 500 200 200 Balance -500 280 -200 Intake: Oral 480 Output: Urine 500 200 200 Other: Voiding Method Toilet Toilet Urinal Urinal Weight 57.7 kg GENERAL EXAM: Alert, very pleasant, 73-year-old white male, on 2 L of oxygen with pulse ox of 97% comfortable in no apparent distress. HEAD: Normocephalic/atraumatic. EYES: Normal reaction of pupils, equal size. Conjunctiva pink, sclera white. NOSE: Clear with pink turbinates. THROAT: No erythema or exudates. NECK: No masses, no JVD, no thyroid enlargement, no adenopathy. CHEST: No chest wall deformity. Symmetrical expansion. LUNGS: Equal air entry with no crackles, wheeze, rhonchi or dullness. CVS: Regular rate and rhythm, normal S1 and S2, no gallops, no murmurs, no rubs ABDOMEN: Soft, nontender. No hepatosplenomegaly, normal bowel sounds, no guarding or rigidity. EXTREMITIES: No clubbing, no edema, no cyanosis, 2+ pulses and upper and lower extremities. MUSCULOSKELETAL: Muscle strength and tone normal. SPINE: No scoliosis or deformity SKIN: No rashes CENTRAL NERVOUS SYSTEM: Alert and oriented -3. No focal deficits, tone is normal in all 4 extremities. PSYCHIATRIC: Alert and oriented -3. Appropriate affect. Intact judgment and insight. Results - Laboratory Findings CBC and BMP: 08/31/19 04:03 08/30/19 10:34 PT/INR, D-dimer PT 11.5 sec (9.0-12.0) 08/31/19 04:03 INR 1.1 (<1.2) 08/31/19 04:03 Abnormal lab findings: Abnormal Labs 08/30/19 08/30/19 08/30/19 10:34 10:34 17:46 WBC 12.9 H RBC Hgb Hct Neutrophils # 8.3 H Basophils # 0.3 H APTT Alkaline Phosphatase 162 H Creatine Kinase 51 L Troponin I 0.301 H* TSH 6.500 H 08/30/19 08/30/19 08/31/19 21:03 22:33 04:03 WBC RBC 3.75 L Hgb 12.0 L Hct 37.5 L Neutrophils # Basophils # APTT 86.4 H Alkaline Phosphatase Creatine Kinase Troponin I 0.238 H* TSH 08/31/19 04:03 WBC RBC Hgb Hct Neutrophils # Basophils # APTT 61.9 H Alkaline Phosphatase Creatine Kinase Troponin I TSH - Diagnostic Findings Chest x-ray: report reviewed, image reviewed Assessment and Plan Plan: Assessment: #1. Right-sided infiltrates, rule out community-acquired pneumonia #2. A. fib with RVR, self converted to normal sinus rhythm #3. Troponin leak, cardiology is following #4. Advanced stage IV COPD with baseline FEV1 of 22% of predicted on home oxygen #5. Former smoker #6. Preserved left ventricular systolic function with an EF of 50-55%, trace MR, mild TR, no pulmonary hypertension #7. Coronary artery stenosis, with prior stent placement #8. Hypertension #9. Hyperlipidemia #10. Thoracic aortic aneurysm of 4.2 cm for which patient was referred to Dr. Cortes #11. Basal cell cancer, multiple lesions removed from back and arms #12. Osteoarthritis #13. Previous episodes of pneumonia Plan: Continue antibiotics, obtain procalcitonin level, patient's most recent CTA ch est reviewed and patient has a lot of chronic changes present on his CAT scan, with advanced bullous emphysema, patchy opacity within the lingula and and patchy irregular airspace opacity in the left base in May,. However the changes on present chest x-ray are within the right lower lobe, possibility of underlying pneumonia are difficult to exclude, although patient has had no symptoms of fever, chills, no leukocytosis, no cough or congestion. We'll continue with same medical care right now, will stop antibiotics if procalcitonin is low. I performed a history & physical examination of the patient and discussed their management with my nurse practitioner, Cookie Mason. I reviewed the nurse practitioner's note and agree with the documented findings and plan of care. Lung sounds are positive for diminished breath sounds. The findings and the impression was discussed with the patient. I attest to the documentation by the nurse practitioner. Time with Patient: Greater than 30
[2019-08-31] MEDS: HEPARIN SOD,PORK IN 0.45% NACL 25,000 UNIT in 0.45% NACL 1 250ML.BAG IV SCH (20:15)
[2019-09-01] MEDS: PANTOPRAZOLE 40 MG TABLET PO SCH (05:52)
[2019-09-01] MEDS: SODIUM CHLORIDE 0.9% 1,000 ML IV SCH ×3 (06:09→18:23)
[2019-09-01 06:40] LABS: Basophils # (A) 0.1 k/uL (0-0.2); Basophils % (A) 1 %; Eosinophils # (A) 0.3 k/uL (0-0.7); Eosinophils % (A) 3 %; HCT 38.2 % (39.0-53.0); HGB 12.2 gm/dL (13.0-17.5); Lymphocytes # (A) 1.6 k/uL (1.0-4.8); Lymphocytes % (A) 18 %; MCH 32.1 pg (25.0-35.0); MCV 100.3 fL (80.0-100.0); Mean Platelet Volume 8.2; Monocytes # (A) 0.6 k/uL (0-1.0); Monocytes % (A) 7 %; Neutrophils # (A) 5.9 k/uL (1.3-7.7); Neutrophils % (A) 69 %; Platelet Count 191 k/uL (150-450); RBC 3.81 m/uL (4.30-5.90); RDW 12.3 % (11.5-15.5); WBC 8.6 k/uL (3.8-10.6)
[2019-09-01 06:52] LABS: INR 1.1 (<1.2); Prothrombin Time 11.3 sec (9.0-12.0)
[2019-09-01] MEDS: IPRATROPIUM-ALBUTEROL 3 ML NEB INHALATION SCH ×4 (08:28→20:41)
[2019-09-01] MEDS: FORMOTEROL FUMARATE 20 MCG/2 ML NEBU INHALATION SCH (08:28)
[2019-09-01] MEDS: SYMBICORT 80-4.5 MCG INHALER INHALATION SCH ×2 (08:28→20:41)
[2019-09-01] MEDS: CYCLOBENZAPRINE 10 MG TAB PO SCH ×3 (08:33→21:24)
[2019-09-01] MEDS: SENNOSIDES-DOCUSATE SODIUM 1 EACH TAB PO SCH ×2 (08:33→21:24)
[2019-09-01] MEDS: MULTIVITAMINS, THERA 1 EACH TAB PO SCH (08:33)
[2019-09-01] MEDS: ASPIRIN 81 MG PO SCH (09:10)
[2019-09-01] MEDS: HEPARIN SOD,PORK IN 0.45% NACL 25,000 UNIT in 0.45% NACL 1 250ML.BAG IV SCH (09:11)
[2019-09-01 10:53] VITALS: PULSE 76
--- NOTE | 2019-09-01 11:21 | P.PN ---
Subjective This is a 73-year-old gentleman with history of CAD with stent, COPD, prior nicotine dependence, 3 drinks every Tuesday,Tuesday, Tuesday aortic aneurysm, sent to the ER per Dr. Pina. Patient was at Dr. Pnia's office, vitals reported heart rate of 190s and patient was immediately sent to the ER. Patient reports shortness of breath and palpitations, which he reports has been going on for about a year, occurs with exertion-most noticeable when he is getting ready for bed. States symptoms of mid epigastric heart racing usually resolve within 10-15 minutes of lying flat in bed. Denies prior arrhythmias. Denies chest pain, denies shortness of breath. Denies lightheadedness or dizziness. Afebrile, WBC 12.9. Heart rate on admission 188, hypotensive with blood pressure 60/33, mean arterial pressure 42, maintaining O2 sats of 90 on room air. EKG reporting SVT, heart rates in the high 180s/190 .EKG Vasovagal maneuver attempted, unsuccessfull. Heart rate improved into the 150s with patient lying flat. Another EKG suggestive of a irregular rhythm,possibly A. fib. IV Cardizem bolus administered, converted to sinus rhythm. Blood pressure improved with mean arterial pressure up into the mid 50s. Vital signs stable currently w ith blood pressure 120/70, heart rate in the 70s and remains in sinus rhythm. Maintaining O2 sats in the 90s on 2 L nasal cannula. WBC now normal. Evaluated by cardiology, echo ordered. Troponin 0.017, 0.301, 0.238. Electrolytes within normal limits. Chest x-ray reporting increasing right-sided infiltrate, possible pneumonia, COPD, stable with left-sided pleural effusion or thickening. Patient reports coughing up more in the morning thick yellow brownish sputum. TSH 6.5, free T4 1.35. September 01, 2019: Patient is doing well this morning. He is scheduled for cardiac catheterization later on. He denies any chest pains shortness of breath, nausea vomiting today. Objective - Vital Signs Vital signs: Vital Signs Temp 98.5 F 09/01/19 08:00 Pulse 80 09/01/19 08:54 Resp 16 09/01/19 08:00 BP 136/86 09/01/19 08:00 Pulse Ox 97 09/01/19 08:00 Intake & Output 08/31/19 09/01/19 09/01/19 18:59 06:59 18:59 Intake Total 720 750 293.54 Output Total 600 525 500 Balance 120 225 -206.46 Weight 57.3 kg Intake: Intake, IV Titration 600 193.54 Amount Heparin Sod,Pork in 0.45% 193.54 NaCl 25,000 unit In 0.45 % NaCl 1 250ml.bag @ 12 UNITS/KG/HR 7.087 mls/hr IV .Q24H [facility] Rx#: [id number] Sodium Chloride 0.9% 1, 600 000 ml @ 75 mls/hr IV . [id number] [facility] Rx#:[id number] Oral 720 150 100 Output: Urine 600 525 500 Other: Voiding Method Toilet Toilet Toilet Urinal Urinal Urinal # Voids 1 - Exam General: The patient is awake and alert, in no distress, and does not appear acutely ill. he is very thin Due to his significant COPD Neck: The neck is supple, there is no thyromegaly, lymphadenopathy, tenderness or JVD. Cardiovascular: S1S2 is normal, There is a regular rate and rhythm. No murmur, rub or gallop is appreciated. Respiratory: Lungs are coarse with minimal air exchange bilaterally and basilar rhonchi consistent with his significant COPD Extremities: no tenderness, There is no pedal edema. Neurological: CN II-XII intact, there are no obvious motor or sensory deficits. Coordination appears grossly intact. Speech is normal. - Labs CBC & Chem 7: 09/01/19 05:47 08/30/19 10:34 Labs: Abnormal Lab Results - Last 24 Hours (Table) 09/01/19 Range/Units 05:47 RBC 3.81 L (4.30-5.90) m/uL Hgb 12.2 L (13.0-17.5) gm/dL Hct 38.2 L (39.0-53.0) % MCV 100.3 H (80.0-100.0) fL Assessment and Plan (1) Atrial fibrillation Current Visit: Yes Status: Acute Code(s): I48.91 - UNSPECIFIED ATRIAL FIBRILLATION SNOMED Code(s): 79160464 (2) Community acquired pneumonia Current Visit: Yes Status: Acute Code(s): J18.9 - PNEUMONIA, UNSPECIFIED ORGANISM SNOMED Code(s): 674408888 (3) Acute exacerbation of chronic obstructive airways disease Current Visit: No Status: Acute Code(s): J44.1 - CHRONIC OBSTRUCTIVE PULMONARY DISEASE W (ACUTE) EXACERBATION SNOMED Code(s): 890810477 (4) Chest pain Current Visit: No Status: Acute Code(s): R07.9 - CHEST PAIN, UNSPECIFIED SNOMED Code(s): 36836398 (5) SVT (supraventricular tachycardia) Current Visit: Yes Status: Acute Code(s): I47.1 - SUPRAVENTRICULAR TACHYCA RDIA SNOMED Code(s): 1620495 (6) Coronary artery disease Current Visit: Yes Status: Acute Code(s): I25.10 - ATHSCL HEART DISEASE OF [place] CORONARY ARTERY W/O ANG PCTRS SNOMED Code(s): 30111120 (7) Stented coronary artery Current Visit: Yes Status: Acute Code(s): Z95.5 - PRESENCE OF CORONARY ANGIOPLASTY IMPLANT AND GRAFT SNOMED Code(s): 685492917 (8) Abnormal TSH Current Visit: Yes Status: Acute Code(s): R79.89 - OTHER SPECIFIED ABNORMAL FINDINGS OF BLOOD CHEMISTRY SNOMED Code(s): 960668253 Plan: we will await on his upcoming cath today he will reamin on O2 repeat labs in am reevaluate pateint in the next 24 hr
[2019-09-01] MEDS ORDERED: IV FLUID CONTINUATION 800 ML IV ONE (12:00)
[2019-09-01] MEDS ORDERED: LIDOCAINE 1% INJ 10MG/ML (20 ML MDV) ONE (12:10)
--- NOTE | 2019-09-01 12:21 | P.PN ---
Subjective Progress Note Date: 09/01/19 Principal diagnosis: Supraventricular tachycardia, A. fib with RVR 73-year-old white male patient of Dr. Chan with known history of advanced COPD with a baseline FEV1 of 22% of predicted, on home oxygen at 2 L/m, hypertension, hyperlipidemia, CAD with previous stenting, former smoker. Patient follows with Dr. Teran in the pulmonary office and recently his Breo Ellipta and Stiolto were switched to Trelegy. Patient also has Ventolin rescue inhaler. Apparently patient was Dr. Pina's office where he was referred because of a aortic aneurysm, and his vitals were obtained which showed a heart rate of 190 BPM and the patient was sent into the emergency department for evaluation. Patient did report palpitations and shortness of breath on presentation, reportedly he had been having symptoms like that every night before going to bed, and usually his symptoms resolve after about 10 minutes of waiting in bed. No chest pain, no cough or congestion, no fever no hemoptysis, no numbness or weakness in his lower extremities. EKG was obtained showing supraventricular tachycardia with a rate of [address] depression, patient was asked to perform some vagal maneuvers with no success, he then requested to lay down flat, and follow-up EKG showed atrial fibrillation with a rate of 153 with improvement of the ST depression, follow-up EKG in 20 minutes showed A. fib with improved rate at 128, and subsequent EKG showed patient converted back to normal sinus rhythm with a rate of [address] segment elevations or depressions. Patient was heparinized, his blood pressure did improve, chest x- ray was obtained showing right-sided infiltrates and COPD. Labs were reviewed showing white blood cell count of 12.9, hemoglobin of 14.4, electrolytes were within normal limits, BUN of 17 creatinine of 0.83 alk phos was elevated at 162, AST and ALT were within normal limits, TSH was high at 6.5. He's had no fever, denies any cough or congestion, his breathing is at his baseline. Patient was started on empiric antibiotics in the form of azithromycin and ceftriaxone for possibility of right lower lobe pneumonia. The patient is seen today 09/01/2019 in follow-up on the selective care unit. He is currently resting comfortably in bed. Awake and alert in no acute distress. Currently in normal sinus rhythm. No worsening shortness of breath, cough or congestion. No palpitations or chest pain. White count 8.6. Hemoglobin 12.2. Influenza screen negative. He is continued on DuoNeb inhalations and Symbicort. He is awaiting cardiac catheterization this morning. Objective - Vital Signs Vital signs: Vital Signs Temp 97.7 F 09/01/19 11:45 Pulse 76 09/01/19 11:45 Resp 16 09/01/19 11:45 BP 139/70 09/01/19 11:45 Pulse Ox 92 L 09/01/19 11:45 Intake & Output 08/31/19 09/01/19 09/01/19 18:59 06:59 18:59 Intake Total 720 750 293.54 Output Total 224 182 5485 Balance 120 225 -806.46 Weight 57.3 kg Intake: Intake, IV Titration 600 193.54 Amount Heparin Sod,Pork in 0.45% 193.54 NaCl 25,000 unit In 0.45 % NaCl 1 250ml.bag @ 12 UNITS/KG/HR 7.087 mls/hr IV .Q24H [facility] Rx#: [id number] Sodium Chloride 0.9% 1, 600 000 ml @ 75 mls/hr IV . [id number] [facility] Rx#:[id number] Oral 720 150 100 Output: Urine 134 478 2448 Other: Voiding Method Toilet Toilet Toilet Urinal Urinal Urinal # Voids 1 - Exam GENERAL EXAM: Alert, pleasant 73-year-old gentleman, on 2 L nasal cannula, comfortable in no apparent distress. HEAD: Normocephalic. EYES: Normal reaction of pupils, equal size. NOSE: Clear with pink turbinates. THROAT: No erythema or exudates. NECK: No masses, no JVD. CHEST: No chest wall deformity. LUNGS: Equal air entry with no crackles, wheeze, rhonchi or dullness. Diminished. CVS: S1 and S2 normal with no audible murmur, regular rhythm. ABDOMEN: No hepatosplenomegaly, normal bowel sounds, no guarding or rigidity. SPINE: No scoliosis or deformity SKIN: No rashes CENTRAL NERVOUS SYSTEM: No focal deficits, tone is normal in all 4 extremities. EXTREMITIES: There is no peripheral edema. No clubbing, no cyanosis. Peripheral pulses are intact. - Labs CBC & Chem 7: 09/01/19 05:47 08/30/19 10:34 Labs: Abnormal Lab Results - Last 24 Hours (Table) 09/01/19 Range/Units 05:47 RBC 3.81 L (4.30-5.90) m/uL Hgb 12.2 L (13.0-17.5) gm/dL Hct 38.2 L (39.0-53.0) % MCV 100.3 H (80.0-100.0) fL Assessment and Plan Assessment: #1. Right-sided infiltrates, rule out community-acquired pneumonia #2. A. fib with RVR, self converted to normal sinus rhythm #3. Troponin leak, cardiology is following #4. Advanced stage IV COPD with baseline FEV1 of 22% of predicted on home oxygen #5. Former smoker #6. Preserved left ventricular systolic function with an EF of 50-55%, trace MR, mild TR, no pulmonary hypertension #7. Coronary artery stenosis, with prior stent placement #8. Hypertension #9. Hyperlipidemia #10. Thoracic aortic aneurysm of 4.2 cm for which patient was referred to Dr. Cortes #11. Basal cell cancer, multiple lesions removed from back and arms #12. Osteoarthritis #13. Previous episodes of pneumonia Plan: The patient was seen and evaluated by Dr. Martin. He is currently stable from the pulmonary standpoint. No clear evidence of pneumonia. Pro-calcitonin 0.05. No leukocytosis. The plan is for cardiac catheterization today. He is currently in sinus rhythm. We'll continue to follow make further recommendations based on his clinical status. I, the cosigning physician, performed a history & physical examination of the patient. Lungs sounds are clear. Diminished. Maintaining good O2 saturations in the 90s on 2 L/m per nasal cannula. I discussed the assessment and plan of care with my nurse practitioner, Mora Gold. I attest to the above note as dictated by her.
[2019-09-01] MEDS ORDERED: LIDOCAINE 1% INJ 10MG/ML (20 ML MDV) SQ ONE (12:28)
[2019-09-01] MEDS ORDERED: MIDAZOLAM 2 MG/2 ML VIAL IV ONE (12:28)
[2019-09-01] MEDS ORDERED: IOPAMIDOL-370 125ML BTL INJ ONE (12:42)
[2019-09-01] MEDS ORDERED: RX INFO: IV CONTRAST WAS GIVEN 1 EACH MISC MISCELLANE PRN (14:04)
[2019-09-01] MEDS ORDERED: AZITHROMYCIN 500 MG TAB PO SCH (15:00)
[2019-09-01 16:05] VITALS: BMI 18.1
--- NOTE | 2019-09-01 21:26 | CC ---
CARDIAC CATHETERIZATION REPORT INDICATION: Acute non ST-segment elevation VA. PROCEDURE NOTE: After obtaining informed consent, left heart catheterization and coronary angiogram were performed via the right femoral artery using standard Vitor catheters. The patient tolerated the procedure well without any obvious immediate complications. A femoral angiogram was performed and Angio-Seal was deployed for hemostasis. Patient received moderate conscious sedation. Total sedation time is 15 minutes. FINDINGS: HEMODYNAMICS: Left ventricular end-diastolic pressure is 10-12 mm. There is no significant gradient across the aortic valve. LEFT VENTRICULOGRAM: Left ventriculogram is not performed. ANGIOGRAPHIC DATA: LEFT MAIN CORONARY ARTERY: Left main coronary artery appears calcified but is free of significant stenosis. Divides into left anterior descending coronary artery and circumflex coronary artery. LEFT ANTERIOR DESCENDING CORONARY ARTERY: The LAD is a large vessel that wraps around the apex of the heart, appears calcified with mild to moderate atherosclerotic plaque in its midportion. There are no focal hemodynamically significant lesions. CIRCUMFLEX CORONARY ARTERY: Circumflex coronary artery is calcified and has atherosclerotic plaque, but no focal hemodynamically significant lesion. RIGHT CORONARY ARTERY: Right coronary artery is a large dominant vessel that is heavily calcified with a moderate plaque in its midportion. At its worst, it seems to be a 40 percent stenosis. IMPRESSION: Mild to moderate nonobstructive coronary artery disease involving heavily calcified coronaries. PLAN: The patient's management is going to be with the risk factor modification and optimal medical therapy. The patient had a mild non ST-segment elevation VA on his initial presentation, which I believe is secondary to supply demand mismatch in a patient who was in SVT with a very fast heart rate. The patient has remained in sinus rhythm through this admission. We can discharge him home tomorrow. If he has further episodes of SVT, we should consider starting him on sotalol or amiodarone or refer to the EP for an SVT ablation. MMODL / IJN: [id number] /
--- NOTE | 2019-09-01 21:32 | LTR ---
DATE OF SERVICE: 09/01/2019 Dear Brendan: I performed cardiac catheterization on Bernard Quiñonez, a detailed cardiac catheterization note is enclosed for your records. Sincerely, SANDIP / YARELIN: [id number] /
[2019-09-02] MEDS: SODIUM CHLORIDE 0.9% 1,000 ML IV SCH ×2 (05:21→09:14)
[2019-09-02] MEDS: PANTOPRAZOLE 40 MG TABLET PO SCH (06:48)
[2019-09-02 06:50] LABS: Basophils # (A) 0.1 k/uL (0-0.2); Basophils % (A) 1 %; Eosinophils # (A) 0.3 k/uL (0-0.7); Eosinophils % (A) 4 %; HCT 38.2 % (39.0-53.0); HGB 12.1 gm/dL (13.0-17.5); Lymphocytes # (A) 1.7 k/uL (1.0-4.8); Lymphocytes % (A) 21 %; MCH 31.3 pg (25.0-35.0); MCHC 31.7 g/dL (31.0-37.0); MCV 98.9 fL (80.0-100.0); Mean Platelet Volume 8.2; Monocytes # (A) 0.6 k/uL (0-1.0); Monocytes % (A) 8 %; Neutrophils # (A) 5.2 k/uL (1.3-7.7); Neutrophils % (A) 64 %; Platelet Count 197 k/uL (150-450); RBC 3.86 m/uL (4.30-5.90); RDW 12.3 % (11.5-15.5); WBC 8.1 k/uL (3.8-10.6)
[2019-09-02 07:10] LABS: INR 1.1 (<1.2); Prothrombin Time 11.4 sec (9.0-12.0)
[2019-09-02] MEDS: IPRATROPIUM-ALBUTEROL 3 ML NEB INHALATION SCH ×2 (07:52→10:49)
[2019-09-02] MEDS: SYMBICORT 80-4.5 MCG INHALER INHALATION SCH (07:52)
[2019-09-02 09:08] VITALS: TEMP 97.5
[2019-09-02] MEDS: ASPIRIN 81 MG PO SCH (09:19)
[2019-09-02] MEDS: MULTIVITAMINS, THERA 1 EACH TAB PO SCH (09:19)
[2019-09-02] MEDS: SENNOSIDES-DOCUSATE SODIUM 1 EACH TAB PO SCH (09:19)
[2019-09-02] MEDS: CYCLOBENZAPRINE 10 MG TAB PO SCH (09:19)
--- NOTE | 2019-09-02 10:00 | P.DS ---
Providers Date of admission: 09/01/19 08:33 Expected date of discharge: 09/02/19 Attending physician: Brendan Chan Consults: 08/30/19 12:47 Consult Physician Urgent Consulting Provider: [facility] Reason/Comments: new onset afib with conversion Do you want consulting provider notified?: Yes 08/31/19 14:16 Consult Physician Routine Consulting Provider: Tami Martin Reason/Comments: abn. cxr, poss rigiht sided pneumonia, cath. tomorrow Do you want consulting provider notified?: Yes Primary care physician: Brendan Chan - Discharge Diagnosis(es) (1) Atrial fibrillation Current Visit: Yes Status: Acute (2) Community acquired pneumonia Current Visit: Yes Status: Acute (3) Acute exacerbation of chronic obstructive airways disease Current Visit: No Status: Acute (4) Chest pain Current Visit: No Status: Acute (5) SVT (supraventricular tachycardia) Current Visit: Yes Status: Acute (6) Coronary artery disease Current Visit: Yes Status: Acute (7) Stented coronary artery Current Visit: Yes Status: Acute (8) Abnormal TSH Current Visit: Yes Status: Acute (9) Non-STEMI (non-ST elevated myocardial infarction) Current Visit: Yes Status: Acute (10) Postsurgical percutaneous transluminal coronary angioplasty (PTCA) status Current Visit: Yes Status: Acute Hospital Course: This is a 73-year-old gentleman with history of CAD with stent, COPD, prior nicotine dependence, 3 drinks every Tuesday,Tuesday, Tuesday aortic aneurysm, sent to the ER per Dr. Pina. Patient was at Dr. Pina's office, vitals reported heart rate of 190s and patient was immediately sent to the ER. Patient reports shortness of breath and palpitations, which he reports has been going on for about a year, occurs with exertion-most noticeable when he is getting ready for bed. States symptoms of mid epigastric heart racing usually resolve within 10-15 minutes of lying flat in bed. Denies prior arrhythmias. Denies chest pain, denies shortness of breath. Denies lightheadedness or dizziness. Afebrile, WBC 12.9. Heart rate on admission 188, hypotensive with blood pressure 60/33, mean arterial pressure 42, maintaining O2 sats of 90 on room air. EKG reporting SVT, heart rates in the high 180s/190 .EKG Vasovagal maneuver attempted, unsuccessfull. Heart rate improved into the 150s with patient lying flat. Another EKG suggestive of a irregular rhythm,possibly A. fib. IV Cardizem bolus administered, converted to sinus rhythm. Blood pressure improved with mean arterial pressure up into the mid 50s. Vital signs stable currently with blood pressure 120/70, heart rate in the 70s and remains in sinus rhythm. Maintaining O2 sats in the 90s on 2 L nasal cannula. WBC now normal. Evaluated by cardiology, echo ordered. Troponin 0.017, 0.301, 0.238. Electrolytes within normal limits. Chest x-ray reporting increasing right-sided infiltrate, possi ble pneumonia, COPD, stable with left-sided pleural effusion or thickening. Patient reports coughing up more in the morning thick yellow brownish sputum. TSH 6.5, free T4 1.35. September 01, 2019: Patient is doing well this morning. He is scheduled for cardiac catheterization later on. He denies any chest pains shortness of breath, nausea vomiting today. 09/02/2019: Patient status post cardiac catheterization that showed no acute critical lesions. His chronic mild to moderate disease with significant calcifications per cardiology. He's been doing well and feels well. He denies any chest pains pressures or shortness breath this time. He's been cleared by pulmonology and cardiology for discharge. Patient Condition at Discharge: Stable Plan - Discharge Summary Discharge Rx Participant: No New Discharge Prescriptions: New Nitroglycerin Sl Tabs [Nitrostat] 0.4 mg SUBLINGUAL Q5M PRN #30 tab PRN Reason: Chest Pain Atorvastatin [Lipitor] 10 mg PO DAILY #30 tab Continue Aspirin EC [Ecotrin Low Dose] 81 mg PO DAILY Tiotropium Br/Olodaterol HCl [Stiolto Respimat Inhal [place]] 2 puff INHALATION RT-DAILY@1400 Fluticasone/Vilanterol [Breo Ellipta 100-25 Mcg Inhaler] 1 puff PO RT-DAILY Multivitamins, Thera [Multivitamin (formulary)] 1 tab PO DAILY Omeprazole 20 mg PO BID Vitamin B Complex 1 cap PO DAILY Cyclobenzaprine [Flexeril] 10 mg PO TID Discharge Medication List Aspirin EC [Ecotrin Low Dose] 81 mg PO DAILY 07/21/16 [History] Fluticasone/Vilanterol [Breo Ellipta 100-25 Mcg Inhaler] 1 puff PO RT-DAILY 05/14/19 [History] Multivitamins, Thera [Multivitamin (formulary)] 1 tab PO DAILY 05/14/19 [History] Tiotropium Br/Olodaterol HCl [Stiolto Respimat Inhal [place]] 2 puff INHALATION RT-DAILY@1400 05/14/19 [History] Omeprazole 20 mg PO BID 06/13/19 [History] Vitamin B Complex 1 cap PO DAILY 06/13/19 [History] Cyclobenzaprine [Flexeril] 10 mg PO TID 08/30/19 [History] Atorvastatin [Lipitor] 10 mg PO DAILY #30 tab 09/02/19 [Rx] Nitroglycerin Sl Tabs [Nitrostat] 0.4 mg SUBLINGUAL Q5M PRN #30 tab 09/02/19 [Rx] Follow up Appointment(s)/Referral(s): Brendan Chan MD [Primary Care Provider] - 1-2 days Geraldo Staples MD [STAFF PHYSICIAN] - 1 Week Patient Instructions/Handouts: A-fib (Atrial Fibrillation) (DC), How to Stop Smoking (DC)
[2019-09-02 12:23] VITALS: BP 125/81; RESP 20
--- NOTE | 2019-09-02 13:56 | PN ---
PROGRESS NOTE Bernard is a 73-year-old gentleman who was admitted to hospital with mild non ST- segment elevation [place] and had an episode of paroxysmal SVT. The patient converted to sinus rhythm and stayed in sinus rhythm. Because of mild troponin elevation, I performed a cardiac catheterization on him. It revealed heavily calcified coronaries but without any focal stenotic lesions. He is on aspirin, atorvastatin. Today, he is doing well and is free of symptoms and is eager to go home. EXAM: Comfortable at rest. Vital signs are stable. There is no jugular venous distention. Chest exam reveals good air entry bilaterally. Heart exam reveals first and second heart sounds. No gallop. Exam of extremities did not reveal any edema. Peripheral pulses are felt. ASSESSMENT: 1. Non ST-segment elevation myocardial infarction status post catheterization and advised medical therapy. 2. Paroxysmal supraventricular tachycardia. The patient will be discharged home and have outpatient followup with Dr. Scales. SANDIP / ROLO: [id number] /
--- NOTE | 2019-09-02 14:03 | P.PN ---
Subjective Progress Note Date: 09/02/19 Principal diagnosis: Right lower lobe, community-acquired pneumonia 73-year-old white male patient of Dr. Chan with known history of advanced COPD with a baseline FEV1 of 22% of predicted, on home oxygen at 2 L/m, hypertension, hyperlipidemia, CAD with previous stenting, former smoker. Patient follows with Dr. Teran in the pulmonary office and recently his Breo Ellipta and Stiolto were switched to Trelegy. Patient also has Ventolin rescue inhaler. Apparently patient was Dr. Pina's office where he was referred because of a aortic aneurysm, and his vitals were obtained which showed a heart rate of 190 BPM and the patient was sent into the emergency department for evaluation. Patient did report palpitations and shortness of breath on presentation, reportedly he had been having symptoms like that every night before going to bed, and usually his symptoms resolve after about 10 minutes of waiting in bed. No chest pain, no cough or congestion, no fever no hemoptysis, no numbness or weakness in his lower extremities. EKG was obtained showing supraventricular tachycardia with a rate of [address] depression, patient was asked to perform some vagal maneuvers with no success, he then requested to lay down flat, and follow-up EKG showed atrial fibrillation with a rate of 153 with improvement of the ST depression, follow-up EKG in 20 minutes showed A. fib with improved rate at 128, and subsequent EKG showed patient converted back to normal sinus rhythm with a rate of [address] segment elevations or depressions. Patient was heparinized, his blood pressure did improve, chest x- ray was obtained showing right-sided infiltrates and COPD. Labs were reviewed showing white blood cell count of 12.9, hemoglobin of 14.4, electrolytes were within normal limits, BUN of 17 creatinine of 0.83 alk phos was elevated at 162, AST and ALT were within normal limits, TSH was high at 6.5. He's had no fever, denies any cough or congestion, his breathing is at his baseline. Patient was started on empiric antibiotics in the form of azithromycin and ceftriaxone for possibility of right lower lobe pneumonia. The patient is seen today 09/01/2019 in follow-up on the selective care unit. He is currently resting comfortably in bed. Awake and alert in no acute distress. Currently in normal sinus rhythm. No worsening shortness of breath, cough or congestion. No palpitations or chest pain. White count 8.6. Hemoglobin 12.2. Influenza screen negative. He is continued on DuoNeb inhalations and Symbicort. He is awaiting cardiac catheterization this morning. Patient was reevaluated today on 09/02/2019, patient is doing well, had cardiac catheterization done yesterday, he was found to have mild to moderate nonobstructive coronary artery disease with heavily calcified coronaries. Clinically the patient is doing great, asymptomatic, no cough no wheezing no shortness of breath, he is being considered for discharge home today. Patient will have follow-up with Dr. Teran on outpatient basis. Objective - Vital Signs Vital signs: Vital Signs Temp 97.5 F L 09/02/19 09:07 Pulse 76 09/01/19 11:45 Resp 20 09/02/19 12:00 BP 125/81 09/02/19 12:00 Pulse Ox 96 09/02/19 12:00 Intake & Output 09/01/19 09/02/19 09/02/19 18:59 06:59 18:59 Intake Total 2048.54 1180 200 Output Total 1900 2200 Balance 148.54 -1020 200 Weight 57.3 kg 57.3 kg Intake: IV 75 Intake, IV Titration 993.54 600 Amount Heparin Sod,Pork in 0.45% 193.54 NaCl 25,000 unit In 0.45 % NaCl 1 250ml.bag @ 12 UNITS/KG/HR 7.087 mls/hr IV .Q24H [facility] Rx#: [id number] Sodium Chloride 0.9% 1, 300 000 ml @ 75 mls/hr IV . [id number] [facility] Rx#:[id number] Sodium Chloride 0.9% 1, 450 600 000 ml @ 75 mls/hr IV . [id number] [facility] Rx#:[id number] cefTRIAXone 1 gm In 50 Sodium Chloride 0.9% 50 ml @ 100 mls/hr IVPB Q24HR [facility] Rx#:[id number] Oral 980 580 200 Output: Urine 1900 2200 Other: Voiding Method Toilet Toilet Toilet Urinal Urinal # Voids 1 1 2 - Exam GENERAL EXAM: Alert, pleasant 73-year-old gentleman, on 2 L nasal cannula, comfortable in no apparent distress. HEENT: PERRLA, EOMI, no icterus Moist mucous membranes. CHEST: No chest wall deformity. LUNGS: Equal air entry with no crackles, diminished breath sounds at the bases. CVS: S1 and S2 normal with no audible murmur, regular rhythm. ABDOMEN: No hepatosplenomegaly, normal bowel sounds, no guarding or rigidity. SPINE: No scoliosis or deformity SKIN: No rashes CENTRAL NERVOUS SYSTEM: No focal deficits, tone is normal in all 4 extremities. EXTREMITIES: No clubbing edema or cyanosis - Labs CBC & Chem 7: 09/02/19 06:19 08/30/19 10:34 Labs: Abnormal Lab Results - Last 24 Hours (Table) 09/02/19 Range/Units 06:19 RBC 3.86 L (4.30-5.90) m/uL Hgb 12.1 L (13.0-17.5) gm/dL Hct 38.2 L (39.0-53.0) % Assessment and Plan Assessment: #1. Right-sided infiltrates, rule out community-acquired pneumonia however considering pro calcitonin is 0.05, doubt pneumonia. #2. A. fib with RVR, self converted to normal sinus rhythm #3. Troponin leak, cardiology is following #4. Advanced stage IV COPD with baseline FEV1 of 22% of predicted on home oxygen #5. Former smoker #6. Preserved left ventricular systolic function with an EF of 50-55%, trace MR, mild TR, no pulmonary hypertension #7. Coronary artery stenosis, with prior stent placement #8. Hypertension #9. Hyperlipidemia #10. Thoracic aortic aneurysm of 4.2 cm for which patient was referred to Dr. Cortes #11. Basal cell cancer, multiple lesions removed from back and arms #12. Osteoarthritis #13. Previous episodes of pneumonia Recommendation: Agree with discharge planning today, follow up on outpatient basis with Dr. Teran. And follow-up chest x-ray on outpatient basis. Time with Patient: Less than 30
--- NOTE | 2019-09-05 12:20 | P.CRDCN ---
History of Present Illness Consult date: 08/31/19 Requesting physician: Brendan Chan Reason for Consult (text): SVT History of present illness: This is a pleasant 73-year-old gentleman with known history of coronary artery disease and prior stent placement in 2008 to the RCA, hypertension, hyperlipidemia, COPD, prior nicotine dependence. He used to foll ow with Dr. 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 The patient follows with Dr. Chan as his primary care doctor, he was referred to go to see Dr. Pina because of an enlarged aorta. He was at the appointment with Dr. Pina yesterday, states that at the nurse in his office was unable to get a blood pressure, Dr. Pina evaluated the patient and noted his heart rate to be extremely fast and patient was sent over to the emergency room for further evaluation. According to the patient, over the past one year or so, on a daily basis, when he exerts himself or when he gets himself ready for bed he notices his heart to race extremely fast, he feels it in his epigastric area. He usually lays down and within 5-15 minutes the symptoms dissipate. He had the same symptoms while he was in the office at Dr. Pina's yesterday. He has never been told in the past to have any history of any arrhythmias. His chest x-ray on presentation here showed an increasing right sided infiltrate, possible pneumonia. COPD was stable left-sided pleural effusion. His EKG on arrival here showed a supraventricular tachycardia, his heart rate was in the 160-170 range, blood pressure at that time was 70 systolic. They attempted with vagal maneuvers to cardiovert the patient, with no success. Patient was given IV Cardizem bolus, repeat EKG was performed, patient converted ultimately to normal sinus rhythm. I pressure on arrival here 60/30 with a heart rate of 180-190, 90% on room air, afebrile. His blood pressure this morning 120/70 with a heart rate in the 70s, 95% on 2 L of oxygen. Afebrile. White blood cell count on presentation here 12.9, 6.8 this morning, hemoglobin on admission 14.4, 12.0 this morning, platelet count 174. Sodium 139, potassium 4.2, BUN 17, creatinine 0.8, magnesium 1.9. Alkaline phosphatase 162, troponin 0.017, 0.301, 0.238. TSH 6.5, free T4 1.3. Patient's most recent EKG shows a normal sinus rhythm with a first-degree AV block and possible right ventricular hypertrophy. He did have an EKG performed here in May 2019 which showed a sinus bradycardia, right axis deviation, right ventricular hype rtrophy. Most recent echocardiogram with Doppler study was performed in April 2019 revealed a preserved left ventricular systolic function, most recent Dian scan was performed in April 2017 negative for any reversible ischemia. At the time of my examination this morning, patient feels back to his usual state, no complaints. 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, PT STATED HE HAS ENLARGED AORTA(PER CT SCAN -THORACIC AORTIC ANEURYSM 4.2 CM), "HOARSNESS", History of Any Multi-Drug Resistant Organisms: None Reported Past Surgical History: Adenoidectomy, Appendectomy, Heart Catheterization With Stent, Hernia Repair, Orthopedic Surgery, Tonsillectomy Additional Past Surgical History / Comment(s): LET ROTATOR CUFF REPAIR,ANAL FISTULA REPAIR, EGD/COLONOSCOPY,MULTIPLE BASAL CELL 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,AGUILAR INGUINAL HERNIA REPAIR.RIGHT SHOULDER SURGERY X2 Past Anesthesia/Blood Transfusion Reactions: No Reported Reaction Date of Last Stent Placement:: 2005 Past Psychological History: No Psychological Hx Reported Smoking Status: Former smoker Past Alcohol Use History: Occasional Past Drug Use History: None Reported - Past Family History Father Family Medical History: Cancer Additional Family Medical History / Comment(s): TESTICULAR, BONE Mother Family Medical History: Cancer Additional Family Medical History / Comment(s): BONE Medications and Allergies Home Medications Medication Instructions Recorded Confirmed Type Aspirin EC [Ecotrin Low Dose] 81 mg PO DAILY 07/21/16 08/30/19 History Fluticasone/Vilanterol [Breo 1 puff PO RT-DAILY 05/14/19 08/30/19 History Ellipta 100-25 Mcg Inhaler] Multivitamins, Thera [Multivitamin 1 tab PO DAILY 05/14/19 08/30/19 History (formulary)] Tiotropium Br/Olodaterol HCl 2 puff INHALATION RT-DAILY@1400 05/14/19 08/30/19 History [Stiolto Respimat Inhal [place]] Omeprazole 20 mg PO BID 06/13/19 08/30/19 History Vitamin B Complex 1 cap PO DAILY 06/13/19 08/30/19 History Cyclobenzaprine [Flexeril] 10 mg PO TID 08/30/19 08/30/19 History Atorvastatin [Lipitor] 10 mg PO DAILY #30 tab 09/02/19 Rx Nitroglycerin Sl Tabs [Nitrostat] 0.4 mg SUBLINGUAL Q5M PRN #30 tab 09/02/19 Rx Allergies Allergy/AdvReac Type Severity Reaction Status Date / Time No Known Allergies Allergy Verified 08/30/19 11:37 Physical Exam CONSTITUTIONAL: No apparent distress. Frail. HEENT: Head is normocephalic. Pupils are equal, round. Sclerae anicteric. Mucous membranes of the mouth are moist. No JVD. No carotid bruit. CHEST EXAMINATION: Diminished bilaterally with prolonged expiration. Lungs are clear to auscultation. No chest wall tenderness is noted on palpation with intermittent sharp pain with deep breathing. HEART EXAMINATION: Regular rate and rhythm. S1, S2 heard. No murmurs, gallops or rub. ABDOMEN: Soft, nontender. Positive bowel sounds. EXTREMITIES: 2+ peripheral pulses, no lower extremity edema and no calf tenderness. NEUROLOGIC EXAMINATION: Patient is awake, alert and oriented x3. Results 09/02/19 06:19 08/30/19 10:34 09/02/19 06:19 08/30/19 10:34 EKG Interpretations (text) Initial EKG on presentation here showed a supraventricular tachycardia with a heart rate of 180-190 Assessment and Plan Plan: Assessment and plan #1 supraventricular tachycardia #2 known history of coronary artery disease with prior stenting of the RCA in 2008 #3 hypotension on admission, likely secondary to supraventricular tachycardia #4 history of hypertension #5 hyperlipidemia #6 COPD #7 prior history of smoking #8 abnormality in troponin, could be secondary to rapid rate from supraventricular tachycardia #9 hypothyroidism, TSH 6.5 with a free T4 of 1.3 Plan We will obtain an echocardiogram with Doppler study. Further recommendations to follow. DNP note has been reviewed, I agree with a documented findings and plan of care. Patient was seen and examined.
== END 2019-09-02 13:19 | disposition home or self-care (01) | DRG 280 ==
LOC: EC 10:23 → 3SCARD 12:46 → OBSVTOIN 09-01 08:33
PROVIDERS: ADMIT Family Medicine; ATTEND Family Medicine
DX: I47.1 Supraventricular tachycardia (principal); I21.A1 Myocardial infarction type 2; J18.9 Pneumonia, unspecified organism; J90 Pleural effusion, not elsewhere classified; J44.0 Chronic obstructive pulmonary disease with (acute) lower respiratory infection; J44.1 Chronic obstructive pulmonary disease with (acute) exacerbation; I71.2 Thoracic aortic aneurysm, without rupture; I95.9 Hypotension, unspecified; I11.9 Hypertensive heart disease without heart failure; Z99.81 Dependence on supplemental oxygen; I48.0 Paroxysmal atrial fibrillation; I25.10 Atherosclerotic heart disease of native coronary artery without angina pectoris; E78.5 Hyperlipidemia, unspecified; E03.9 Hypothyroidism, unspecified; K59.00 Constipation, unspecified; M19.90 Unspecified osteoarthritis, unspecified site; Z79.82 Long term (current) use of aspirin; Z79.51 Long term (current) use of inhaled steroids; Z79.899 Other long term (current) drug therapy; Z87.891 Personal history of nicotine dependence; Z87.01 Personal history of pneumonia (recurrent); Z85.828 Personal history of other malignant neoplasm of skin; Z95.5 Presence of coronary angioplasty implant and graft; Z90.49 Acquired absence of other specified parts of digestive tract; Z98.890 Other specified postprocedural states; Z80.43 Family history of malignant neoplasm of testis; Z80.8 Family history of malignant neoplasm of other organs or systems
CPT/HCPCS: 36415; 71046; 80053; 82550; 83735; 84145; 84439; 84443; 84484; 85025; 85610; 85730; 86140; 87070; 87205; 87502; 93005; 93306; 93458; 94640; 96361; 96365; 96366; 96375; 96376; 99285

== ENCOUNTER 2019-11-07 09:00 | Inpatient (IN) | payer MEDICARE ==
[2019-11-07] MEDS ORDERED: SODIUM CHLORIDE 0.9% 1,000 ML IV STA ×2 (09:29→12:04)
[2019-11-07] MEDS ORDERED: VANCOMYCIN IV PER PHARMACY 1 EACH MISC MISCELLANE PRN (09:30)
[2019-11-07] MEDS ORDERED: CEFEPIME 2 GM in SODIUM CHLORIDE 0.9% 100 ML IVPB STA (09:30)
[2019-11-07 09:33] LABS: Basophils # (A) 0.1 k/uL (0-0.2); Basophils % (A) 1 %; Eosinophils # (A) 0.3 k/uL (0-0.7); Eosinophils % (A) 1 %; HCT 47.4 % (39.0-53.0); Lymphocytes % (A) 4 %; MCH 31.4 pg (25.0-35.0); MCV 98.1 fL (80.0-100.0); Monocytes # (A) 0.4 k/uL (0-1.0); Monocytes % (A) 2 %; Neutrophils % (A) 92 %; Platelet Count 318 k/uL (150-450); RBC 4.83 m/uL (4.30-5.90); RDW 13.2 % (11.5-15.5); WBC 22.8 k/uL (3.8-10.6)
[2019-11-07] MEDS ORDERED: DEXAMETHASONE SOD PHOSPHATE 10 MG/ML 1 ML VIAL IV STA (09:38)
[2019-11-07] MEDS ORDERED: VANCOMYCIN 1,250 MG in SODIUM CHLORIDE 0.9% 250 ML IVPB STA (09:38)
[2019-11-07] MEDS ORDERED: ALBUTEROL HFA INHALER INHALATION PRN (09:39)
[2019-11-07] MEDS ORDERED: ALBUTEROL HFA INHALER INHALATION STA (09:40)
[2019-11-07 09:43] LABS: HGB 15.2 gm/dL (13.0-17.5)
--- NOTE | 2019-11-07 09:51 | ED ---
General Adult HPI - General Chief complaint: Shortness of Breath Stated complaint: Cardiac/COPD Time Seen by Provider: 11/07/19 09:03 Source: EMS Mode of arrival: EMS Limitations: no limitations - History of Present Illness Initial comments: Dictation was produced using [employer] dictation software. please excuse any grammatical, word or spelling errors. This patient was cared for during a federal and state declared state of emergency secondary to Covid 19 Chief Complaint: 74-year-old male past medical history of COPD, coronary artery disease, pneumonia presents with hemoptysis and cough. History of Present Illness: Patient is 74-year-old male presents today with multiple days of cough, shortness of breath and hemoptysis. Patient was initially evaluated by EMS. He was picked up at home. He was found to be in significant dyspnea. He was placed on noninvasive ventilation. According to EMS patient had stable vitals. Patient reports that he's been coughing with sounds like blood clots. He denies that his sputum is mucousy. Denies any fever, chills or night sweats. He does complain of some mild thoracic back pain it's worse with deep inspiration. EMS reports the patient is rhonchorous. The ROS documented in this emergency department record has been reviewed and confirmed by me. Those systems with pertinent positive or negative responses have been documented in the HPI. All other systems are other negative and/or noncontributory. PHYSICAL EXAM: General Impression: Alert and oriented x3, tachypneic, on noninvasive ventilation, tolerating facemask HEENT: Normocephalic atraumatic, extra-ocular movements intact, pupils equal and reactive to light bilaterally, dry mucous membranes Cardiovascular: Heart regular rate and rhythm Chest: Able to complete 5 word sentences, no retractions, no tachypnea Abdomen: Bowel sounds present, abdomen soft, non-tender, non-distended, no organomegaly Musculoskeletal: Pulses present and equal in all extremities, no peripheral edema Motor: no focal deficits noted Neurological: CN II-XII grossly intact, no focal motor or sensory deficits noted Skin: Intact with no visualized rashes ED course: 74-year-old male presents with chief complaint of dyspnea. He does have a component of hemoptysis and thoracic back pain that is pleuritic in nature. Signs upon arrival shows temperature of 98.8, heart rate is 138 sinus tachycardia,, patient tachypnea 28. Initial blood pressure was 83 or 54. Patient satting 90% on an invasive ventilation. Patient resuscitated with intravenous fluids. He does appear to be dehydrated on clinical exam. There is strong concern for pneumonia sepsis. Laboratory evaluation obtained. Leukocytosis of 22.8, coag panel unremarkable. D-dimer 6.69. Arterial blood gas shows pO2 of 70 on 80% FiO2, bicarbonate 26, CO2 28. Metabolic panel shows findings within acceptable limits except for glucose is 46. Patient given IV glucose. Rest metabolic panel is grossly unremarkable. Rotavirus test is negative. Chest x-ray obtained showing multilobar infiltrates. Considering elevated d-dimer CT angioma was ordered. CT angios shows multifocal infiltrates. Physical presentation consistent with pneumonia sepsis. Patient is given 30 mL per KG bolus. Patient, broad-spectrum antibiotics. Discussed patient case with Dr. Chan who is willing to accept patients care. Discussed patient case with Dr. Reid for possible ICU admissi on. He request the patient admitted to the floor for now and should he get worse he can be transferred to the intensive care unit. Patient reevaluated at bedside. He does look much more comfortable at this time. I believe this is reasonable disposition considering dramatic improvement with noninvasive ventilation and fluid administration. EKG interpretation: Ventricular rate 172, sinus tachycardia, CA interval 150, QRS 74, QTC 456. - Related Data Home Medications Medication Instructions Recorded Confirmed Aspirin EC [Ecotrin Low Dose] 81 mg PO DAILY 07/21/16 11/07/19 Fluticasone/Vilanterol [Breo 1 puff PO RT-DAILY 05/14/19 11/07/19 Ellipta 100-25 Mcg Inhaler] Multivitamins, Thera [Multivitamin 1 tab PO DAILY 05/14/19 11/07/19 (formulary)] Tiotropium Br/Olodaterol HCl 2 puff INHALATION RT-DAILY@1400 05/14/19 11/07/19 [Stiolto Respimat Inhal [place]] Omeprazole 20 mg PO BID 06/13/19 11/07/19 Vitamin B Complex 1 cap PO DAILY 06/13/19 11/07/19 Cyclobenzaprine [Flexeril] 10 mg PO TID PRN 08/30/19 11/07/19 Albuterol Sulfate [Ventolin HFA] 2 puff INHALATION RT-Q6H PRN 11/07/19 11/07/19 HYDROcodone/APAP 5-325MG [[place] 0.5 - 1 tab PO Q6H PRN 11/07/19 11/07/19 5-325] Previous Rx's Medication Instructions Recorded Atorvastatin [Lipitor] 10 mg PO DAILY #30 tab 09/02/19 Nitroglycerin Sl Tabs [Nitrostat] 0.4 mg SUBLINGUAL Q5M PRN #30 tab 09/02/19 Allergies Allergy/AdvReac Type Severity Reaction Status Date / Time No Known Allergies Allergy Verified 08/30/19 11:37 Review of Systems ROS Statement: Those systems with pertinent positive or pertinent negative responses have been documented in the HPI. ROS Other: All systems not noted in ROS Statement are negative. 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, PT STATED HE HAS ENLARGED AORTA(PER CT SCAN -THORACIC AORTIC ANEURYSM 4.2 CM), "HOARSNESS", History of Any Multi-Drug Resistant Organisms: None Reported Past Surgical History: Adenoidectomy, Appendectomy, Heart Catheterization With Stent, Hernia Repair, Orthopedic Surgery, Tonsillectomy Additional Past Surgical History / Comment(s): LET ROTATOR CUFF REPAIR,ANAL FISTULA REPAIR, EGD/COLONOSCOPY,MULTIPLE BASAL CELL 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,AGUILAR INGUINAL HERNIA REPAIR.RIGHT SHOULDER SURGERY X2 Past Anesthesia/Blood Transfusion Reactions: No Reported Reaction Date of Last Stent Placement:: 2005 Past Psychological History: No Psychological Hx Reported Smoking Status: Former smoker Past Alcohol Use History: Occasional Past Drug Use History: None Reported - Past Family History Father Family Medical History: Cancer Additional Family Medical History / Comment(s): TESTICULAR, BONE Mother Family Medical History: Cancer Additional Family Medical History / Comment(s): BONE General Exam Limitations: no limitations Course Vital Signs 11/07/19 11/07/19 11/07/19 09:11 09:15 09:25 Temperature 98.8 F Pulse Rate 138 H 138 H 138 H Respiratory 30 H 30 H 28 H Rate Blood Pressure 83/54 O2 Sat by Pulse 92 L 93 L 90 L Oximetry 11/07/19 11/07/19 11/07/19 09:30 09:45 10:06 Temperature Pulse Rate 129 H 115 H 112 H Respiratory 28 H 26 H 26 H Rate Blood Pressure 80/65 91/61 103/77 O2 Sat by Pulse 94 L 93 L 98 Oximetry Procedures - [place] Protocol (Time Out) Nurse: Debra Valero Medical Decision Making - Lab Data Result diagrams: 11/07/19 09:26 11/07/19 09:26 Lab Results 11/07/19 11/07/19 11/07/19 Range/Units 09:26 09:26 09:26 WBC 22.8 H (3.8-10.6) k/uL RBC 4.83 (4.30-5.90) m/uL Hgb 15.2 D (13.0-17.5) gm/dL Hct 47.4 (39.0-53.0) % MCV 98.1 (80.0-100.0) fL MCH 31.4 (25.0-35.0) pg MCHC 32.0 (31.0-37.0) g/dL RDW 13.2 (11.5-15.5) % Plt Count 318 (150-450) k/uL Neutrophils % 92 % Lymphocytes % 4 % Monocytes % 2 % Eosinophils % 1 % Basophils % 1 % Neutrophils # 21.0 H (1.3-7.7) k/uL Lymphocytes # 1.0 (1.0-4.8) k/uL Monocytes # 0.4 (0-1.0) k/uL Eosinophils # 0.3 (0-0.7) k/uL Basophils # 0.1 (0-0.2) k/uL PT 10.6 (9.0-12.0) sec INR 1.0 (<1.2) APTT 23.5 (22.0-30.0) sec D-Dimer 6.69 H (<0.60) mg/L FEU Sample Site ABG pH (7.35-7.45) ABG pCO2 (35-45) mmHg ABG pO2 (83-108) mmHg ABG HCO3 (21-25) mmol/L ABG Total CO2 (19-24) mmol/L ABG O2 Saturation (94-97) % ABG Base Excess mmol/L Ld Test FiO2 % Sodium 136 L (137-145) mmol/L Potassium 4.6 (3.5-5.1) mmol/L Chloride 100 (98-107) mmol/L Carbon Dioxide 26 (22-30) mmol/L Anion Gap 10 mmol/L BUN 25 H (9-20) mg/dL Creatinine 0.78 (0.66-1.25) mg/dL Est GFR (CKD-EPI)AfAm >90 (>60 ml/min/1.73 sqM) Est GFR (CKD-EPI)NonAf 90 (>60 ml/min/1.73 sqM) Glucose 46 L* (74-99) mg/dL POC Glucose (mg/dL) (75-99) mg/dL POC Glu Physician Allergist Immunologist ID Plasma Lactic Acid Rich (0.7-2.0) mmol/L Calcium 9.2 (8.4-10.2) mg/dL Magnesium 1.9 (1.6-2.3) mg/dL Total Bilirubin 1.4 H (0.2-1.3) mg/dL AST 38 (17-59) U/L ALT 27 (4-49) U/L Alkaline Phosphatase 134 H (38-126) U/L Lactate Dehydrogenase 1025 H (313-618) U/L Troponin I (0.000-0.034) ng/mL C-Reactive Protein 162.4 H (<10.0) mg/L NT-Pro-B Natriuret Pep pg/mL Total Protein 7.5 (6.3-8.2) g/dL Albumin 3.9 (3.5-5.0) g/dL Coronavirus (PCR) (Not Detectd) 11/07/19 11/07/19 11/07/19 Range/Units 09:26 09:26 09:26 WBC (3.8-10.6) k/uL RBC (4.30-5.90) m/uL Hgb (13.0-17.5) gm/dL Hct (39.0-53.0) % MCV (80.0-100.0) fL MCH (25.0-35.0) pg MCHC (31.0-37.0) g/dL RDW (11.5-15.5) % Plt Count (150-450) k/uL Neutrophils % % Lymphocytes % % Monocytes % % Eosinophils % % Basophils % % Neutrophils # (1.3-7.7) k/uL Lymphocytes # (1.0-4.8) k/uL Monocytes # (0-1.0) k/uL Eosinophils # (0-0.7) k/uL Basophils # (0-0.2) k/uL PT (9.0-12.0) sec INR (<1.2) APTT (22.0-30.0) sec D-Dimer (<0.60) mg/L FEU Sample Site ABG pH (7.35-7.45) ABG pCO2 (35-45) mmHg ABG pO2 (83-108) mmHg ABG HCO3 (21-25) mmol/L ABG Total CO2 (19-24) mmol/L ABG O2 Saturation (94-97) % ABG Base Excess mmol/L Ld Test FiO2 % Sodium (137-145) mmol/L Potassium (3.5-5.1) mmol/L Chloride (98-107) mmol/L Carbon Dioxide (22-30) mmol/L Anion Gap mmol/L BUN (9-20) mg/dL Creatinine (0.66-1.25) mg/dL Est GFR (CKD-EPI)AfAm (>60 ml/min/1.73 sqM) Est GFR (CKD-EPI)NonAf (>60 ml/min/1.73 sqM) Glucose (74-99) mg/dL POC Glucose (mg/dL) (75-99) mg/dL POC Glu Physician Allergist Immunologist ID Plasma Lactic Acid Rich 1.7 (0.7-2.0) mmol/L Calcium (8.4-10.2) mg/dL Magnesium (1.6-2.3) mg/dL Total Bilirubin (0.2-1.3) mg/dL AST (17-59) U/L ALT (4-49) U/L Alkaline Phosphatase (38-126) U/L Lactate Dehydrogenase (313-618) U/L Troponin I 0.027 (0.000-0.034) ng/mL C-Reactive Protein (<10.0) mg/L NT-Pro-B Natriuret Pep pg/mL Total Protein (6.3-8.2) g/dL Albumin (3.5-5.0) g/dL Coronavirus (PCR) Not Detected (Not Detectd) 11/07/19 11/07/19 11/07/19 Range/Units 09:26 09:55 10:52 WBC (3.8-10.6) k/uL RBC (4.30-5.90) m/uL Hgb (13.0-17.5) gm/dL Hct (39.0-53.0) % MCV (80.0-100.0) fL MCH (25.0-35.0) pg MCHC (31.0-37.0) g/dL RDW (11.5-15.5) % Plt Count (150-450) k/uL Neutrophils % % Lymphocytes % % Monocytes % % Eosinophils % % Basophils % % Neutrophils # (1.3-7.7) k/uL Lymphocytes # (1.0-4.8) k/uL Monocytes # (0-1.0) k/uL Eosinophils # (0-0.7) k/uL Basophils # (0-0.2) k/uL PT (9.0-12.0) sec INR (<1.2) APTT (22.0-30.0) sec D-Dimer (<0.60) mg/L FEU Sample Site rrad ABG pH 7.43 (7.35-7.45) ABG pCO2 40 (35-45) mmHg ABG pO2 78 L (83-108) mmHg ABG HCO3 26 H (21-25) mmol/L ABG Total CO2 28 H (19-24) mmol/L ABG O2 Saturation 94.6 (94-97) % ABG Base Excess 2.0 mmol/L Ld Test Yes FiO2 80 % Sodium (137-145) mmol/L Potassium (3.5-5.1) mmol/L Chloride (98-107) mmol/L Carbon Dioxide (22-30) mmol/L Anion Gap mmol/L BUN (9-20) mg/dL Creatinine (0.66-1.25) mg/dL Est GFR (CKD-EPI)AfAm (>60 ml/min/1.73 sqM) Est GFR (CKD-EPI)NonAf (>60 ml/min/1.73 sqM) Glucose (74-99) mg/dL POC Glucose (mg/dL) 59 L (75-99) mg/dL POC Glu Physician Allergist Immunologist ID Virginie Menon Plasma Lactic Acid Rich (0.7-2.0) mmol/L Calcium (8.4-10.2) mg/dL Magnesium (1.6-2.3) mg/dL Total Bilirubin (0.2-1.3) mg/dL AST (17-59) U/L ALT (4-49) U/L Alkaline Phosphatase (38-126) U/L Lactate Dehydrogenase (313-618) U/L Troponin I (0.000-0.034) ng/mL C-Reactive Protein (<10.0) mg/L NT-Pro-B Natriuret Pep 723 pg/mL Total Protein (6.3-8.2) g/dL Albumin (3.5-5.0) g/dL Coronavirus (PCR) (Not Detectd) Critical Care Time Critical Care Time: Yes Total Critical Care Time: 33 Disposition Clinical Impression: Sepsis due to pneumonia Disposition: ADMITTED IP TO THIS [facility] Condition: Fair Referrals: Brendan Chan MD [Primary Care Provider] - 1-2 days Decision Time: 11:50
[2019-11-07 09:52] LABS: Partial Thromboplastin Time 23.5 sec (22.0-30.0); Prothrombin Time 10.6 sec (9.0-12.0)
[2019-11-07 09:54] LABS: ALT 27 U/L (4-49); AST 38 U/L (17-59); African American GFR (CKD) >90 (>60 ml/min/1.73 sqM); Albumin 3.9 g/dL (3.5-5.0); Alkaline Phosphatase 134 U/L (38-126); Anion Gap 10 mmol/L; Blood Urea Nitrogen 25 mg/dL (9-20); Calcium 9.2 mg/dL (8.4-10.2); Carbon Dioxide 26 mmol/L (22-30); Chloride 100 mmol/L (98-107); LDH 1025 U/L (313-618); Magnesium 1.9 mg/dL (1.6-2.3); Non-African American GFR(CKD) 90 (>60 ml/min/1.73 sqM); Potassium 4.6 mmol/L (3.5-5.1); Sodium 136 mmol/L (137-145); Total Bilirubin 1.4 mg/dL (0.2-1.3); Total Protein 7.5 g/dL (6.3-8.2)
--- NOTE | 2019-11-07 09:56 | XR ---
EXAMINATION TYPE: XR chest 1V portable DATE OF EXAM: 11/07/2019 COMPARISON: 08/30/2019 INDICATION: Suspected Covid 19 pneumonia TECHNIQUE: Single frontal view of the chest is obtained. FINDINGS: The heart size is normal. The pulmonary vasculature is normal. There is a right lower lobe infiltrate. Some mild left lower lobe infiltrate is present. Pneumonia is within the differential. Underlying mass on the right is not excluded. This should be followed. Some minimal blunting left costophrenic angle could suggest some minimal left pleural effusion. IMPRESSION: 1. Right lower lobe and mild left lower lobe infiltrates. Correlate for pneumonia. This should be fol lowed to clearing.
[2019-11-07 09:59] LABS: ABG HCO3 26 mmol/L (21-25); ABG Oxygen Saturation 94.6 % (94-97); ABG PCO2 40 mmHg (35-45); ABG PH 7.43 (7.35-7.45); ABG PO2 78 mmHg (83-108); ABG TCO2 28 mmol/L (19-24); Allen Test Performed? Yes
[2019-11-07 10:01] LABS: D-Dimer 6.69 mg/L FEU (<0.60)
[2019-11-07 10:04] LABS: Glucose 46 mg/dL (74-99)
[2019-11-07] MEDS: DEXTROSE 50% SYRINGE 50 ML IVP STA ×2 (10:05→12:06)
[2019-11-07 10:54] LABS: Glucose,Whole Blood 59 mg/dL (75-99)
[2019-11-07] MEDS ORDERED: DEXTROSE 50% SYRINGE 50 ML IVP STA (10:59)
[2019-11-07 11:01] LABS: C Reactive Protein 162.4 mg/L (<10.0)
--- NOTE | 2019-11-07 11:11 | CT ---
CT CHEST FOR PULMONARY EMBOLISM. EXAMINATION TYPE: CT angio chest DATE OF EXAM: 11/07/2019 INDICATION: elevated d dimer CT DLP: 259.6 mGycm, Automated exposure control for dose reduction was used. CONTRAST: Patient injected with 100 mL of Isovue 300. COMPARISON: None TECHNIQUE: CT of the chest is performed on a spiral scan at 2 mm thick sections. Study is performed with intravenous contrast timed for evaluation for pulmonary embolism. This will limit additional po rtions of the evaluation. 3-D MIP images reconstructed by the technologist are reviewed on the compu ter in the coronal and sagittal planes. FINDINGS: No persistent filling defects are evident to suggest an acute pulmonary embolism. No mediastinal or hilar adenopathy enlarged by CT criteria is evident. The ascending aorta diameter at the level of the main pulmonary artery is 3.9 cm. The main pulmonary artery diameter at the bifur cation is 3.2 cm. Prominent emphysematous changes are present. There is consolidation in the posterior right lower lobe . Correlate for pneumonia. Milder infiltrate is present in the posterior left lung base. Pneumonia is also within the differential. Limited CT section through the upper abdomen are unremarkable. On lung windows the costophrenic angle of the anterior right lower rib is somewhat prominent. Conside r additional workup later today for an expansile lesion. Series 401 image 144 current study. This ap pears to be present on the comparison of 06/13/2019. IMPRESSIONS: 1. Bibasilar posterior lung infiltrates worse on the right. 2. No acute pulmonary embolism. 3. Advanced emphysematous changes.
[2019-11-07] MEDS ORDERED: ACETAMINOPHEN TAB 325 MG TAB PO PRN (11:44)
[2019-11-07] MEDS ORDERED: ONDANSETRON 4 MG/2 ML VIAL IVP PRN (11:44)
[2019-11-07] MEDS ORDERED: NALOXONE 0.4 MG/ML 1 ML VIAL IV PRN (11:44)
[2019-11-07] MEDS ORDERED: SODIUM CHLORIDE 0.9% 1,000 ML IV SCH (11:45)
[2019-11-07] MEDS ORDERED: PNEUMONIA PROTOCOL UTILIZED 1 EACH MISC PO PRN (11:46)
[2019-11-07] MEDS ORDERED: IPRATROPIUM-ALBUTEROL 3 ML NEB INHALATION PRN (11:46)
[2019-11-07 12:12] LABS: Glucose,Whole Blood 63 mg/dL (75-99)
[2019-11-07 12:20] LABS: Glucose,Whole Blood 170 mg/dL (75-99)
[2019-11-07] MEDS ORDERED: traMADol 50 MG TAB PO PRN (15:03)
--- NOTE | 2019-11-07 15:47 | P.HPIM ---
History of Present Illness H&P Date: 11/07/19 This is a 73-year-old gentleman with history of CAD with stent, COPD, prior nicotine dependence, 3 drinks every Tuesday,Tuesday, Tuesday aortic aneurysm, presented with worsening shortness of breath, hemoptysis times a few days accompanied by mild thoracic back pain worsened by deep inspiration. Vital signs stable per EMS /sputum in the ER mucousy.Hemoglobin 15.2, platelets 318. On arrival patient was tachycardic with heart rates in the 130s, tachypneic with respiratory rate in the high 20s, maintaining O2 sats in the 90s on 80% BiPAP afebrile T-max of 98.8, WBC 22.8, hypotensive, systolic blood pressures in the 80s with map of 63. Chest x-ray reporting right lower lobe and mild left lower lobe infiltrates, minimal blunting of the left costophrenic angle suggestive of minimal left pleural effusion, underlying mass of the right not excluded. D- dimer 6.69. Chest CTA reported by bibasilar posterior lung infiltrates worse on the right, no acute PE, advanced emphysematous changes. ABGs on 80% FiO2 reported pH 7.43 ,pO2 78, bicarb 26, CO2 28, O2 sat 94.6, base excess 2. EKG reporting sinus tachycardia with PVCs, right ventricular hypertrophy. Magnesium 1.9, potassium 4.6, BUN 25 creatinine 0.78 .Troponin negative 1. Testing Influenza A and B ordered. Coronavirus tested negative. C-reactive protein 162.4, LDH 1024, alk phos 134, total bili 1.4 . Blood sugars ranging from 59-1 70 .Received IV glucose, fluid resuscitation with broad-spectrum antibiotics, Zithromax, Rocephin, vancomycin. Review of Systems ROS Statement: Those systems with pertinent positive or pertinent negative responses have been documented in the HPI. ROS Other: All systems not noted in ROS Statement are negative. 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, PT STATED HE HAS ENLARGED AORTA(PER CT SCAN -THORACIC AORTIC ANEURYSM 4.2 CM), "HOARSNESS", History of Any Multi-Drug Resistant Organisms: None Reported Past Surgical History: Adenoidectomy, Appendectomy, Heart Catheterization With Stent, Hernia Repair, Orthopedic Surgery, Tonsillectomy Additional Past Surgical History / Comment(s): LET ROTATOR CUFF REPAIR,ANAL FISTULA REPAIR, EGD/COLONOSCOPY,MULTIPLE BASAL CELL SKIN CA REMOVED FROM BACK A [place] ARMS,AGUILAR INGUINAL HERNIA REPAIR.RIGHT SHOULDER SURGERY X2 Past Anesthesia/Blood Transfusion Reactions: No Reported Reaction Date of Last Stent Placement:: 2005 Past Psychological History: No Psychological Hx Reported Smoking Status: Former smoker Past Alcohol Use History: Occasional Past Drug Use History: None Reported - Past Family History Father Family Medical History: Cancer Additional Family Medical History / Comment(s): TESTICULAR, BONE Mother Family Medical History: Cancer Additional Family Medical History / Comment(s): BONE Medications and Allergies Home Medications Medication Instructions Recorded Confirmed Type Aspirin EC [Ecotrin Low Dose] 81 mg PO DAILY 07/21/16 11/07/19 History Fluticasone/Vilanterol [Breo 1 puff PO RT-DAILY 05/14/19 11/07/19 History Ellipta 100-25 Mcg Inhaler] Multivitamins, Thera [Multivitamin 1 tab PO DAILY 05/14/19 11/07/19 History (formulary)] Tiotropium Br/Olodaterol HCl 2 puff INHALATION RT-DAILY@1400 05/14/19 11/07/19 History [Stiolto Respimat Inhal [place]] Omeprazole 20 mg PO BID 06/13/19 11/07/19 History Vitamin B Complex 1 cap PO DAILY 06/13/19 11/07/19 History Cyclobenzaprine [Flexeril] 10 mg PO TID PRN 08/30/19 11/07/19 History Atorvastatin [Lipitor] 10 mg PO DAILY #30 tab 09/02/19 11/07/19 Rx Nitroglycerin Sl Tabs [Nitrostat] 0.4 mg SUBLINGUAL Q5M PRN #30 tab 09/02/19 11/07/19 Rx Albuterol Sulfate [Ventolin HFA] 2 puff INHALATION RT-Q6H PRN 11/07/19 11/07/19 History HYDROcodone/APAP 5-325MG [[place] 0.5 - 1 tab PO Q6H PRN 11/07/19 11/07/19 History 5-325] Allergies Allergy/AdvReac Type Severity Reaction Status Date / Time No Known Allergies Allergy Verified 08/30/19 11:37 Physical Exam Vitals: Vital Signs Temp Pulse Resp BP Pulse Ox 11/07/19 10:06 112 H 26 H 103/77 98 11/07/19 09:45 115 H 26 H 91/61 93 L 11/07/19 09:30 129 H 28 H 80/65 94 L 11/07/19 09:25 98.8 F 138 H 28 H 83/54 90 L 11/07/19 09:15 138 H 30 H 93 L 11/07/19 09:11 138 H 30 H 92 L Intake and Output 11/06/19 11/07/19 11/07/19 22:59 06:59 14:59 Other: Weight 65.771 kg VITAL SIGNS: As above GENERAL: Sitting up in bed, no acute distress, wearing BiPAP HEENT: Conjunctivae normal. eyes normal. NECK: No JVD. No thyroid enlargement. No LNs CARDIOVASCULAR: S1, S2 regular.. No murmur RESPIRATION: Respiratory effort mildly increased .Breath sounds diminished in the bases. No rhonchi, fine bibasilar crackles ABDOMEN: Soft, nontender . No guarding. no masses palpable. No ascites, No hepatosplenomegaly.Bowel sounds heard. LEGS: No edema. no swelling PSYCHIATRY: Alert and oriented X3, mood and affect normal. NERVOUS SYSTEM: Cranial N 2-12 grossly normal. Moves all 4 limbs. Diffuse weakness No focal deficits. Strength and sensation grossly intact.. Skin: no lesions, no rash Lymphatic system. No LN neck axilla. Results CBC & Chem 7: 11/07/19 09:26 11/07/19 09:26 Labs: Abnormal Lab Results - Last 24 Hours (Table) 11/07/19 11/07/19 11/07/19 Range/Units 09:26 09:26 09:26 WBC 22.8 H (3.8-10.6) k/uL Neutrophils # 21.0 H (1.3-7.7) k/uL D-Dimer 6.69 H (<0.60) mg/L FEU ABG pO2 (83-108) mmHg ABG HCO3 (21-25) mmol/L ABG Total CO2 (19-24) mmol/L Sodium 136 L (137-145) mmol/L BUN 25 H (9-20) mg/dL Glucose 46 L* (74-99) mg/dL POC Glucose (mg/dL) (75-99) mg/dL Total Bilirubin 1.4 H (0.2-1.3) mg/dL Alkaline Phosphatase 134 H (38-126) U/L Lactate Dehydrogenase 1025 H (313-618) U/L C-Reactive Protein 162.4 H (<10.0) mg/L 11/07/19 11/07/19 11/07/19 Range/Units 09:55 10:52 12:01 WBC (3.8-10.6) k/uL Neutrophils # (1.3-7.7) k/uL D-Dimer (<0.60) mg/L FEU ABG pO2 78 L (83-108) mmHg ABG HCO3 26 H (21-25) mmol/L ABG Total CO2 28 H (19-24) mmol/L Sodium (137-145) mmol/L BUN (9-20) mg/dL Glucose (74-99) mg/dL POC Glucose (mg/dL) 59 L 63 L (75-99) mg/dL Total Bilirubin (0.2-1.3) mg/dL Alkaline Phosphatase (38-126) U/L Lactate Dehydrogenase (313-618) U/L C-Reactive Protein (<10.0) mg/L 11/07/19 Range/Units 12:18 WBC (3.8-10.6) k/uL Neutrophils # (1.3-7.7) k/uL D-Dimer (<0.60) mg/L FEU ABG pO2 (83-108) mmHg ABG HCO3 (21-25) mmol/L ABG Total CO2 (19-24) mmol/L Sodium (137-145) mmol/L BUN (9-20) mg/dL Glucose (74-99) mg/dL POC Glucose (mg/dL) 170 H (75-99) mg/dL Total Bilirubin (0.2-1.3) mg/dL Alkaline Phosphatase (38-126) U/L Lactate Dehydrogenase (313-618) U/L C-Reactive Protein (<10.0) mg/L Assessment and Plan Assessment: Sepsis secondary to acute bilateral pneumonia, worse on the right, community- acquired., Elevated CRP, elevated LDH, Coronavirus tested negative, influenza A and B pending Acute on chronic hypercapnic and Hypoxic respiratory failure secondary to the above, currently requiring BiPAP Elevated d-dimer, acute PE ruled out. Borderline Hypotension, present on admission, secondary to the above, resolved. COPD CAD with history of stent Hypertension lipidemia Prior nicotine dependence Hypothyroidism Positive alcohol use on Mondays,Wednesdays,Fridays- History of Thoracic aortic aneurysm 4.2 cm, reports outpatient monitoring, Plan: Continue on current medication regime ,monitoring and symptomatic treatment. Currently weaning off of BiPAP, down to 50%. Tramadol and Lidocaine patch to L-spine ordered for complaints of chronic back pain. Pulmonary consult in place with recommendations pending. Sputum/blood cultures pending. Maintain current IV antibiotics. Home meds have been reviewed and resumed accordingly. The impression and plan of care has been dictated as directed. : I performed a history and examination of this patient, discussed the same with the dictator. I agree with the dictator's note ,documented as a scribe. Any additional findings or plans will be noted.
[2019-11-07 17:02] LABS: Glucose,Whole Blood 80 mg/dL (75-99)
[2019-11-07] MEDS: HEPARIN SODIUM,PORCINE 5,000 UNIT/ML 1 ML VIAL SQ SCH (17:45)
[2019-11-07] MEDS: AZITHROMYCIN 500 MG TAB PO SCH (17:45)
[2019-11-07] MEDS: DEXTROSE 10% IN WATER 1,000 ML with SODIUM CHLORIDE 2.5MEQ/ML VIAL 153.8 MEQ IV SCH (17:45)
[2019-11-07] MEDS: LIDOCAINE 5% PATCH TOPICAL SCH (18:13)
[2019-11-07] MEDS: VANCOMYCIN 1,250 MG in SODIUM CHLORIDE 0.9% 250 ML IVPB SCH (19:35)
[2019-11-07 20:11] LABS: Glucose,Whole Blood 114 mg/dL (75-99)
[2019-11-08] MEDS: DEXTROSE 10% IN WATER 1,000 ML with SODIUM CHLORIDE 2.5MEQ/ML VIAL 153.8 MEQ IV SCH ×3 (01:07→22:25)
[2019-11-08] MEDS: HEPARIN SODIUM,PORCINE 5,000 UNIT/ML 1 ML VIAL SQ SCH ×4 (01:07→22:23)
[2019-11-08 06:19] LABS: Glucose,Whole Blood 140 mg/dL (75-99)
[2019-11-08] MEDS: VANCOMYCIN 1,250 MG in SODIUM CHLORIDE 0.9% 250 ML IVPB SCH (09:57)
[2019-11-08] MEDS: AZITHROMYCIN 500 MG TAB PO SCH (09:57)
[2019-11-08] MEDS: PANTOPRAZOLE 40 MG/10 ML VIAL IV SCH (09:58)
[2019-11-08 10:42] LABS: African American GFR (CKD) >90 (>60 ml/min/1.73 sqM); Anion Gap 7 mmol/L; Basophils % (A) 0 %; Blood Urea Nitrogen 16 mg/dL (9-20); Calcium 8.5 mg/dL (8.4-10.2); Carbon Dioxide 28 mmol/L (22-30); Chloride 103 mmol/L (98-107); Eosinophils % (A) 0 %; Glucose 131 mg/dL (74-99); HCT 36.7 % (39.0-53.0); Lymphocytes # (A) 0.6 k/uL (1.0-4.8); Lymphocytes % (A) 2 %; MCH 31.7 pg (25.0-35.0); MCHC 31.5 g/dL (31.0-37.0); MCV 100.8 fL (80.0-100.0); Magnesium 1.9 mg/dL (1.6-2.3); Monocytes # (A) 0.9 k/uL (0-1.0); Monocytes % (A) 4 %; Neutrophils # (A) 23.8 k/uL (1.3-7.7); Neutrophils % (A) 93 %; Non-African American GFR(CKD) >90 (>60 ml/min/1.73 sqM); Platelet Count 199 k/uL (150-450); Potassium 3.7 mmol/L (3.5-5.1); RBC 3.64 m/uL (4.30-5.90); RDW 13.3 % (11.5-15.5); Sodium 138 mmol/L (137-145); WBC 25.6 k/uL (3.8-10.6)
[2019-11-08 10:51] LABS: HGB 11.6 gm/dL (13.0-17.5)
[2019-11-08] MEDS ORDERED: IPRATROPIUM-ALBUTEROL 3 ML NEB INHALATION PRN (10:51)
[2019-11-08] MEDS: IPRATROPIUM-ALBUTEROL 3 ML NEB INHALATION SCH ×3 (11:14→20:01)
[2019-11-08 11:38] LABS: Glucose,Whole Blood 210 mg/dL (75-99)
--- NOTE | 2019-11-08 11:38 | CONS ---
CONSULTATION PULMONARY/CRITICAL CARE CONSULTATION: DATE OF CONSULTATION: November 08, 2019 REASON FOR CONSULTATION: Shortness of breath and pneumonia. This is a 74-year-old male with a history of COPD. The patient typically sees my partner Dr. Teran for his COPD. His primary care physician is Dr. Chan. In addition to severe COPD, he has a history of CAD and he presents to the hospital with complaints of increasing shortness of breath for a number of days prior to admission. He apparently told the ER physician that he was coughing up blood, but he told me that he was not coughing up blood and not really even coughing up any phlegm. No fever or chills. Mostly it was just shortness of breath that brought him into the hospital. He denied any chest pain or chest discomfort. He was placed on BiPAP for a period of time and has now been weaned to nasal cannula. He tells me that Dr. Teran refers to him as a pink puffer. His COVID-19 test was negative. As I mentioned, he denies any such chest pain or chest discomfort. There was no fever or chills. The patient is not coughing up any phlegm or blood. He denies abdominal pain, nausea, vomiting, and diarrhea. He denies any genitourinary complaints. He is feeling a bit better now than when he first came in. MEDICATIONS: His home medications are reviewed. He is on aspirin, Breo, multivitamins, Stiolto, omeprazole, vitamin B complex, Flexeril, albuterol, [place], Lipitor, and sublingual nitroglycerin. ALLERGIES: Allergies are denied. MEDICAL HISTORY: Medical history includes CAD, COPD, chest pain/angina, osteoarthritis, pneumonia, and skin cancer. The patient apparently does have a thoracic aortic aneurysm as well measuring 4.2 cm. This is apparently being watched with serial CT scans. SURGICAL HISTORY: Surgical history includes among other things adenoidectomy, appendectomy, heart catheterization with stent, hernia repair, left rotator cuff repair, anal fistula repair, EGD/colonoscopy, skin cancer removal, bilateral inguinal hernia repair, and tonsillectomy. SOCIAL HISTORY: Positive for previous heavy tobacco use. He drinks occasionally. Does not smoke currently anymore. No illicit drug use. FAMILY HISTORY: Positive for father with testicular and bone cancer and mother with bone cancer. REVIEW OF SYSTEMS: CONSTITUTIONAL: Negative. NEUROLOGIC: Negative. HEENT: Negative. CARDIOVASCULAR: Negative. PULMONARY: Shortness of breath primarily. GI: Negative. : Negative. RHEUMATOLOGIC: Negative. IMMUNOLOGIC: Negative. ENDOCRINOLOGIC: Negative. DERMATOLOGIC: Negative. PHYSICAL EXAMINATION: VITAL SIGNS: Current vital signs are reviewed. Temperature is 97.5, heart rate 94, respiratory rate 22, blood pressure 100/60, mean 78, saturations on 4 L are mid 90s. On BiPAP, he was mid 90s as well. GENERAL: Appears in no acute distress. Nasal O2 in place. There is no audible wheezing, use of accessory muscles or significant conversational dyspnea. HEENT: Examination is grossly unremarkable. Nasal O2 in place. NECK: Supple. Full range of motion. No adenopathy. Neck veins are flat. CARDIOVASCULAR: Examination reveals regular rhythm and rate. Heart rate 94 beats per minute. S1, S2 normal. Heart sounds are distant. LUNGS: Reveal severely diminished breath sounds throughout. There are some coarse bibasilar crackles, more so on the right than on the left. There is some expiratory rhonchi as well. No wheezes. Breath sounds equal bilaterally but diminished throughout. ABDOMEN: Soft. Bowel sounds are heard. EXTREMITIES: Are intact. There is no edema. SKIN: Without rash. NEUROLOGIC: Examination is brief but nonfocal. LABS: Labs are reviewed. White count 22.8, hemoglobin 15.2, hematocrit 47.4, platelet count 318,000. PT, INR, PTT all normal. D-dimer 6.69. Blood gases show pO2 of 78, pCO2 of 40, pH is 7.43. Sodium 138, potassium 3.7 chloride 103, CO2 is 28. Anion gap is 7. BUN and creatinine were 16 and 0.47. LDH was 1025. Alkaline phosphatase 134. Bilirubin 1.4. C-reactive protein 162.4. N terminal proBNP 723. Procalcitonin is 1.42. Coronavirus rapid test was negative. Influenza A and B were negative. Microbiology is currently pending or negative. Chest x-ray shows right lower lobe and right mid lung infiltrate. This is consistent with pneumonia. A CTA was negative for PE but did show some upper lobe emphysematous changes as well as some bibasilar infiltrates, right greater than left. MEDICATIONS: Current medications are reviewed. He is currently on Tylenol, albuterol inhaler, Zithromax, Rocephin, IV, subcu heparin, DuoNeb, lidocaine patch, Narcan, Zofran, Protonix, tramadol, vancomycin. ASSESSMENT: 1. Chronic obstructive pulmonary disease exacerbation complicated by bibasilar pneumonia, right greater than left. 2. History of severe chronic obstructive pulmonary disease with oxygen dependence and chronic hypoxemic respiratory failure. 3. Previous history of heavy tobacco use. 4. History of coronary artery disease with previous heart catheterization with stent. 5. Skin cancer. 6. Angina pectoris. 7. Osteoarthritis. 8. Prior history of pneumonia. 9. Thoracic aortic aneurysm. PLAN: Please see my orders. Will put him on standard therapy. He is already on Rocephin and Zithromax. Additional recommendations and suggestions are forthcoming. We will also put him on corticosteroids. Prognosis is guarded. MMTANIA / IJN: [id number] /
[2019-11-08] MEDS: methylPREDNISolone SOD SUCCI 40 MG/ML 1 ML VIAL IV SCH ×3 (12:39→22:23)
--- NOTE | 2019-11-08 12:54 | P.PN ---
Subjective Progress Note Date: 11/08/19 This is a 73-year-old gentleman with history of CAD with stent, COPD, prior nicotine dependence, 3 drinks every Tuesday,Tuesday, Tuesday aortic aneurysm, presented with worsening shortness of breath, hemoptysis times a few days accompanied by mild thoracic back pain worsened by deep inspiration. Vital sig ns stable per EMS /sputum in the ER mucousy.Hemoglobin 15.2, platelets 318. On arrival patient was tachycardic with heart rates in the 130s, tachypneic with respiratory rate in the high 20s, maintaining O2 sats in the 90s on 80% BiPAP afebrile T-max of 98.8, WBC 22.8, hypotensive, systolic blood pressures in the 80s with map of 63. Chest x-ray reporting right lower lobe and mild left lower lobe infiltrates, minimal blunting of the left costophrenic angle suggestive of minimal left pleural effusion, underlying mass of the right not excluded. D- dimer 6.69. Chest CTA reported by bibasilar posterior lung infiltrates worse on the right, no acute PE, advanced emphysematous changes. ABGs on 80% FiO2 reported pH 7.43 ,pO2 78, bicarb 26, CO2 28, O2 sat 94.6, base excess 2. EKG reporting sinus tachycardia with PVCs, right ventricular hypertrophy. Magnesium 1.9, potassium 4.6, BUN 25 creatinine 0.78 .Troponin negative 1. Testing Influenza A and B ordered. Coronavirus tested negative. C-reactive protein 162.4, LDH 1024, alk phos 134, total bili 1.4 . Blood sugars ranging from 59- 170 .Received IV glucose, fluid resuscitation with broad-spectrum antibiotics, Zithromax, Rocephin, vancomycin. 11/08/2019 maintained on nebulized bronchodilators, Rocephin and Zithromax. Breathing improving, weaned off BiPAP and currently maintaining O2 sats in the 90s on 4 L nasal cannula. Productive cough with brown sputum. Tested negative for influenza A and B. Evaluated by pulmonary, with steroids added to medication regime. Reports chronic back pain controlled with lidocaine patch. Telemetry sinus rhythm. Denies chest pain, palpitations or increasing shortness of breath. Objective - Vital Signs Vital signs: Vital Signs Temp 97.6 F 11/08/19 08:00 Pulse 94 11/08/19 11:29 Resp 22 04/16/20 08:00 BP 94/58 11/08/19 08:00 Pulse Ox 95 11/08/19 08:00 Intake & Output 11/07/19 11/08/19 11/08/19 18:59 06:59 18:59 Intake Total 250 118 Output Total 750 1025 225 Balance -500 -1025 -107 Weight 65.771 kg 49 kg Intake: Intake, IV Titration 250 Amount Sodium Chloride 0.9% 1, 250 000 ml @ 999 mls/hr IV . Q1H1M [facility] Rx#:[id number] Oral 118 Output: Urine 750 1025 225 Other: # Voids 1 # Bowel Movements 1 1 - Exam VITAL SIGNS: As above GENERAL: Sitting up in bed, no acute distress HEENT: Conjunctivae normal. eyes normal. NECK: No JVD. No thyroid enlargement. No LNs CARDIOVASCULAR: S1, S2 regular.. No murmur RESPIRATION: Respiratory effort mildly increased .Breath sounds diminished. Scattered rhonchi, bibasilar crackles, no wheezing. Congested cough. ABDOMEN: Soft, nontender . No guarding. no masses palpable. No ascites, No hepatosplenomegaly.Bowel sounds heard. LEGS: No edema. no swelling PSYCHIATRY: Alert and oriented X3, mood and affect normal. NERVOUS SYSTEM: Cranial N 2-12 grossly normal. Moves all 4 limbs. Diffuse weakness No focal deficits. Strength and sensation grossly intact.. Skin: no lesions, no rash Lymphatic system. No LN neck axilla. Microbiology 11/07/19 09:26 Blood Blood Culture - Preliminary No Growth after 24 hours - Labs CBC & Chem 7: 11/08/19 10:11 11/08/19 10:11 Labs: Abnormal Lab Results - Last 24 Hours (Table) 11/07/19 11/07/19 11/07/19 Range/Units 09:26 12:01 12:18 WBC (3.8-10.6) k/uL RBC (4.30-5.90) m/uL Hgb (13.0-17.5) gm/dL Hct (39.0-53.0) % MCV (80.0-100.0) fL Neutrophils # (1.3-7.7) k/uL Lymphocytes # (1.0-4.8) k/uL Creatinine (0.66-1.25) mg/dL Glucose (74-99) mg/dL POC Glucose (mg/dL) 63 L 170 H (75-99) mg/dL Procalcitonin 1.42 H (0.02-0.09) ng/mL 11/07/19 11/08/19 11/08/19 Range/Units 20:04 06:17 10:11 WBC 25.6 H (3.8-10.6) k/uL RBC 3.64 L (4.30-5.90) m/uL Hgb 11.6 L D (13.0-17.5) gm/dL Hct 36.7 L (39.0-53.0) % MCV 100.8 H (80.0-100.0) fL Neutrophils # 23.8 H (1.3-7.7) k/uL Lymphocytes # 0.6 L (1.0-4.8) k/uL Creatinine (0.66-1.25) mg/dL Glucose (74-99) mg/dL POC Glucose (mg/dL) 114 H 140 H (75-99) mg/dL Procalcitonin (0.02-0.09) ng/mL 11/08/19 11/08/19 Range/Units 10:11 11:37 WBC (3.8-10.6) k/uL RBC (4.30-5.90) m/uL Hgb (13.0-17.5) gm/dL Hct (39.0-53.0) % MCV (80.0-100.0) fL Neutrophils # (1.3-7.7) k/uL Lymphocytes # (1.0-4.8) k/uL Creatinine 0.47 L (0.66-1.25) mg/dL Glucose 131 H (74-99) mg/dL POC Glucose (mg/dL) 210 H (75-99) mg/dL Procalcitonin (0.02-0.09) ng/mL Microbiology - Last 24 Hours (Table) 11/07/19 09:26 Blood Culture - Preliminary Blood No Growth after 24 hours Assessment and Plan Assessment: Sepsis secondary to acute bilateral pneumonia, worse on the right, community- acquired and COPD. Elevated CRP, elevated LDH, Coronavirus tested negative, negative for influenza A and B Acute COPD exacerbation Acute on chronic hypercapnic and Hypoxic respiratory failure secondary to the above, status post BiPAP Elevated d-dimer, acute PE ruled out. Borderline Hypotension, present on admission, secondary to the above, resolved. CAD with history of stent Hypertension lipidemia Prior nicotine dependence Hypothyroidism Positive alcohol use on Mondays,Wednesdays,Fridays- History of Thoracic aortic aneurysm 4.2 cm, reports outpatient monitoring, Plan: Continue on current medication regime ,monitoring and symptomatic treatment. Continue on nebulized bronchodilators, antibiotics and IV steroids. Pain management; maintain lidocaine patch/tramadol. Sputum culture pending. PT/OT consult initiated. The impression and plan of care has been dictated as directed. : I performed a history and examination of this patient, discussed the same with the dictator. I agree with the dictator's note ,documented as a scribe. Any additional findings or plans will be noted.
[2019-11-08 14:41] VITALS: BMI 17.9
[2019-11-08 16:29] LABS: Glucose,Whole Blood 138 mg/dL (75-99)
[2019-11-08] MEDS: INSULIN ASPART (NovoLOG) 100 UNIT/ML VIAL SQ SCH ×2 (17:16→22:24)
[2019-11-08] MEDS: LIDOCAINE 5% PATCH TOPICAL SCH ×2 (17:19→17:29)
[2019-11-08] MEDS: BUDESONIDE 1 MG/2 ML NEBU INHALATION SCH (20:01)
[2019-11-08] MEDS: FORMOTEROL FUMARATE 20 MCG/2 ML NEBU INHALATION SCH (20:01)
[2019-11-08 20:51] LABS: Glucose,Whole Blood 152 mg/dL (75-99)
[2019-11-09] MEDS: methylPREDNISolone SOD SUCCI 40 MG/ML 1 ML VIAL IV SCH ×4 (05:27→22:09)
[2019-11-09 05:43] LABS: Glucose,Whole Blood 103 mg/dL (75-99)
[2019-11-09] MEDS: INSULIN ASPART (NovoLOG) 100 UNIT/ML VIAL SQ SCH ×4 (05:44→22:11)
[2019-11-09] MEDS: DEXTROSE 10% IN WATER 1,000 ML with SODIUM CHLORIDE 2.5MEQ/ML VIAL 153.8 MEQ IV SCH ×2 (05:44→17:36)
[2019-11-09 06:41] LABS: African American GFR (CKD) >90 (>60 ml/min/1.73 sqM); Non-African American GFR(CKD) >90 (>60 ml/min/1.73 sqM)
[2019-11-09] MEDS ORDERED: VANCOMYCIN TROUGH DUE 1 EACH MISC MISCELLANE ONE (08:00)
[2019-11-09] MEDS: BUDESONIDE 1 MG/2 ML NEBU INHALATION SCH ×2 (08:20→19:58)
[2019-11-09] MEDS: IPRATROPIUM-ALBUTEROL 3 ML NEB INHALATION SCH ×4 (08:20→19:58)
[2019-11-09] MEDS: FORMOTEROL FUMARATE 20 MCG/2 ML NEBU INHALATION SCH ×2 (08:20→19:58)
[2019-11-09] MEDS: HEPARIN SODIUM,PORCINE 5,000 UNIT/ML 1 ML VIAL SQ SCH ×3 (08:40→22:10)
[2019-11-09] MEDS: AZITHROMYCIN 500 MG TAB PO SCH (08:40)
[2019-11-09] MEDS: PANTOPRAZOLE 40 MG/10 ML VIAL IV SCH (08:40)
[2019-11-09] MEDS: LIDOCAINE 5% PATCH TOPICAL SCH (08:48)
[2019-11-09 09:33] LABS: African American GFR (CKD) >90 (>60 ml/min/1.73 sqM); Anion Gap 5 mmol/L; Blood Urea Nitrogen 26 mg/dL (9-20); Calcium 8.8 mg/dL (8.4-10.2); Carbon Dioxide 28 mmol/L (22-30); Chloride 104 mmol/L (98-107); Glucose 101 mg/dL (74-99); Non-African American GFR(CKD) >90 (>60 ml/min/1.73 sqM); Potassium 4.2 mmol/L (3.5-5.1); Sodium 137 mmol/L (137-145)
[2019-11-09 11:05] LABS: HCT 33.9 % (39.0-53.0); HGB 10.9 gm/dL (13.0-17.5); MCH 31.6 pg (25.0-35.0); MCV 98.7 fL (80.0-100.0); Platelet Count 176 k/uL (150-450); RBC 3.44 m/uL (4.30-5.90); RDW 13.2 % (11.5-15.5)
[2019-11-09 11:15] LABS: Glucose,Whole Blood 103 mg/dL (75-99)
--- NOTE | 2019-11-09 11:25 | P.PN ---
Subjective Progress Note Date: 11/09/19 Principal diagnosis: Chronic obstructive pulmonary disease computed by by basilar pneumonia right greater than left The patient is seen today in follow-up 11/09/2019 on the selective care unit. He is currently resting comfortably in bed. Awake and alert in no acute distress. He is breathing easier today compared to yesterday. Denies any worsening shortness of breath, cough or congestion. No hemoptysis. Blood culture reveals no growth to date. Sputum culture reveals no growth. White count 25.0. Hemoglobin 10.9. Sodium 137. Potassium 4.2. Creatinine 0.47. He is continued on ceftriaxone and azithromycin along with DuoNeb inhalations, Pulmicort and Perforomist inhalations, IV Solu-Medrol. Maintaining O2 saturations in the 90s on 2 L/m per nasal cannula. He's been afebrile. Hemodynamically stable. He did not require BiPAP last night. Objective - Vital Signs Vital signs: Vital Signs Temp 97.7 F 11/09/19 08:10 Pulse 84 11/09/19 11:15 Resp 19 11/09/19 08:10 BP 137/68 11/09/19 08:10 Pulse Ox 95 11/09/19 08:10 Intake & Output 11/08/19 11/09/19 11/09/19 18:59 06:59 18:59 Intake Total 830 250 476 Output Total 875 650 Balance -45 -400 476 Weight 49 kg 58.4 kg Intake: Intake, IV Titration 250 Amount Vancomycin 1,250 mg In 250 Sodium Chloride 0.9% 250 ml @ 125 mls/hr IVPB Q12HR [facility] Rx#:[id number] Oral 830 476 Output: Urine 875 650 Other: Voiding Method Urinal # Voids 1 300 # Bowel Movements 2 2 1 - Exam GENERAL EXAM: Alert, pleasant 74-year-old gentleman, on 2 L nasal cannula, comfortable in no apparent distress. HEAD: Normocephalic. EYES: Normal reaction of pupils, equal size. NOSE: Clear with pink turbinates. THROAT: No erythema or exudates. NECK: No masses, no JVD. CHEST: No chest wall deformity. LUNGS: Equal air entry with few crackles in the posterior bases, diminished. CVS: S1 and S2 normal with no audible murmur, regular rhythm. ABDOMEN: No hepatosplenomegaly, normal bowel sounds, no guarding or rigidity. SPINE: No scoliosis or deformity SKIN: No rashes CENTRAL NERVOUS SYSTEM: No focal deficits, tone is normal in all 4 extremities. EXTREMITIES: There is no peripheral edema. No clubbing, no cyanosis. Perip heral pulses are intact. - Labs CBC & Chem 7: 11/09/19 10:53 11/09/19 05:51 Labs: Abnormal Lab Results - Last 24 Hours (Table) 11/08/19 11/08/19 11/08/19 Range/Units 11:37 16:28 20:50 WBC (3.8-10.6) k/uL RBC (4.30-5.90) m/uL Hgb (13.0-17.5) gm/dL Hct (39.0-53.0) % BUN (9-20) mg/dL Creatinine (0.66-1.25) mg/dL Glucose (74-99) mg/dL POC Glucose (mg/dL) 210 H 138 H 152 H (75-99) mg/dL 11/09/19 11/09/19 11/09/19 Range/Units 05:42 05:51 05:51 WBC (3.8-10.6) k/uL RBC (4.30-5.90) m/uL Hgb (13.0-17.5) gm/dL Hct (39.0-53.0) % BUN 26 H (9-20) mg/dL Creatinine 0.44 L 0.47 L (0.66-1.25) mg/dL Glucose 101 H (74-99) mg/dL POC Glucose (mg/dL) 103 H (75-99) mg/dL 11/09/19 11/09/19 Range/Units 10:53 11:14 WBC 25.0 H (3.8-10.6) k/uL RBC 3.44 L (4.30-5.90) m/uL Hgb 10.9 L (13.0-17.5) gm/dL Hct 33.9 L (39.0-53.0) % BUN (9-20) mg/dL Creatinine (0.66-1.25) mg/dL Glucose (74-99) mg/dL POC Glucose (mg/dL) 103 H (75-99) mg/dL Microbiology - Last 24 Hours (Table) 11/07/19 23:31 Gram Stain - Preliminary Sputum 11/07/19 09:26 Blood Culture - Preliminary Blood No Growth after 24 hours Assessment and Plan Assessment: 1 Acute exacerbation of chronic obstructive pulmonary disease complicated by bibasilar pneumonia, right greater than left, suspect community-acquired, CoVID 19 screen was negative. 2 History of severe chronic obstructive pulmonary disease with oxygen dependent and chronic hypoxemic respiratory failure 3 Previous history of heavy tobacco dependence 4 History of coronary artery disease with previous stent placement 5 History of skin cancer 6 Osteoarthritis 7 Previous history of pneumonia 8 Thoracic aortic aneurysm Plan: The patient was seen and evaluated by Dr. Reid He is improved but not quite back to his baseline We'll continue current treatment plan We'll continue to follow I, the cosigning physician, performed a history & physical examination of the patient. Lungs sounds crackles in the bilateral posterior bases, diminished. Maintaining good O2 saturations in the 90s on 2 L/m per nasal cannula. I discu ssed the assessment and plan of care with my nurse practitioner, Mora Gold. I attest to the above note as dictated by her.
--- NOTE | 2019-11-09 12:20 | XR ---
EXAMINATION TYPE: XR chest 1V DATE OF EXAM: 11/09/2019 COMPARISON: Prior chest x-ray 11/07/2019 HISTORY: Worsening hypoxia TECHNIQUE: Single frontal view of the chest is obtained. FINDINGS: Findings are similar to prior exam. Prominent lung volumes suggest underlying COPD. By bas ilar increased density consistent with airspace disease. Aorta is dense. Heart size is stable. No pne umothorax or evident effusion. IMPRESSION: Correlate for bibasilar pneumonia. Emphysema.
--- NOTE | 2019-11-09 14:04 | P.PN ---
Subjective Progress Note Date: 11/09/19 This is a 73-year-old gentleman with history of CAD with stent, COPD, prior nicotine dependence, 3 drinks every Tuesday,Tuesday, Tuesday aortic aneurysm, presented with worsening shortness of breath, hemoptysis times a few days accompanied by mild thoracic back pain worsened by deep inspiration. Vital sig ns stable per EMS /sputum in the ER mucousy.Hemoglobin 15.2, platelets 318. On arrival patient was tachycardic with heart rates in the 130s, tachypneic with respiratory rate in the high 20s, maintaining O2 sats in the 90s on 80% BiPAP afebrile T-max of 98.8, WBC 22.8, hypotensive, systolic blood pressures in the 80s with map of 63. Chest x-ray reporting right lower lobe and mild left lower lobe infiltrates, minimal blunting of the left costophrenic angle suggestive of minimal left pleural effusion, underlying mass of the right not excluded. D- dimer 6.69. Chest CTA reported by bibasilar posterior lung infiltrates worse on the right, no acute PE, advanced emphysematous changes. ABGs on 80% FiO2 reported pH 7.43 ,pO2 78, bicarb 26, CO2 28, O2 sat 94.6, base excess 2. EKG reporting sinus tachycardia with PVCs, right ventricular hypertrophy. Magnesium 1.9, potassium 4.6, BUN 25 creatinine 0.78 .Troponin negative 1. Testing Influenza A and B ordered. Coronavirus tested negative. C-reactive protein 162.4, LDH 1024, alk phos 134, total bili 1.4 . Blood sugars ranging from 59- 170 .Received IV glucose, fluid resuscitation with broad-spectrum antibiotics, Zithromax, Rocephin, vancomycin. 11/08/2019 maintained on nebulized bronchodilators, Rocephin and Zithromax. Breathing improving, weaned off BiPAP and currently maintaining O2 sats in the 90s on 4 L nasal cannula. Productive cough with brown sputum. Tested negative for influenza A and B. Evaluated by pulmonary, with steroids added to medication regime. Reports chronic back pain controlled with lidocaine patch. Telemetry sinus rhythm. Denies chest pain, palpitations or increasing shortness of breath. 11/09/2019 worsening hypoxia, now requiring 4 L nasal cannula to maintain O2 sats in the 90s. Chest x-ray ordered. Afebrile, preliminary blood cultures negative at 24 hours, sputum culture pending. Did not require BiPAP last night. Objective - Vital Signs Vital signs: Vital Signs Temp 97.7 F 11/09/19 08:10 Pulse 92 11/09/19 08:36 Resp 19 11/09/19 08:10 BP 137/68 11/09/19 08:10 Pulse Ox 95 11/09/19 08:10 Intake & Output 11/08/19 11/09/19 11/09/19 18:59 06:59 18:59 Intake Total 830 250 476 Output Total 875 650 Balance -45 -400 476 Weight 49 kg 58.4 kg Intake: Intake, IV Titration 250 Amount Vancomycin 1,250 mg In 250 Sodium Chloride 0.9% 250 ml @ 125 mls/hr IVPB Q12HR [facility] Rx#:[id number] Oral 830 476 Output: Urine 875 650 Other: Voiding Method Urinal # Voids 1 300 # Bowel Movements 2 2 1 - Exam VITAL SIGNS: As above GENERAL: Sitting up in bed, no acute distress HEENT: Conjunctivae normal. eyes normal. NECK: No JVD. No thyroid enlargement. No LNs CARDIOVASCULAR: S1, S2 regular.. No murmur RESPIRATION: Respiratory effort mildly increased .Breath sounds diminished. Fine Right basilar crackles Congested cough. ABDOMEN: Soft, nontender . No guarding. no masses palpable. No ascites, No hepatosplenomegaly.Bowel sounds heard. LEGS: No edema. no swelling PSYCHIATRY: Alert and oriented X3, mood and affect normal. NERVOUS SYSTEM: Cranial N 2-12 grossly normal. Moves all 4 limbs. Diffuse weakness No focal deficits. Strength and sensation grossly intact.. Skin: no lesions, no rash Lymphatic system. No LN neck axilla. Microbiology 11/07/19 23:31 Sputum Gram Stain - Preliminary 11/07/19 09:26 Blood Blood Culture - Preliminary No Growth after 24 hours - Labs CBC & Chem 7: 11/09/19 10:53 11/09/19 05:51 Labs: Abnormal Lab Results - Last 24 Hours (Table) 11/08/19 11/08/19 11/08/19 Range/Units 10:11 10:11 11:37 WBC 25.6 H (3.8-10.6) k/uL RBC 3.64 L (4.30-5.90) m/uL Hgb 11.6 L D (13.0-17.5) gm/dL Hct 36.7 L (39.0-53.0) % MCV 100.8 H (80.0-100.0) fL Neutrophils # 23.8 H (1.3-7.7) k/uL Lymphocytes # 0.6 L (1.0-4.8) k/uL BUN (9-20) mg/dL Creatinine 0.47 L (0.66-1.25) mg/dL Glucose 131 H (74-99) mg/dL POC Glucose (mg/dL) 210 H (75-99) mg/dL 11/08/19 11/08/19 11/09/19 Range/Units 16:28 20:50 05:42 WBC (3.8-10.6) k/uL RBC (4.30-5.90) m/uL Hgb (13.0-17.5) gm/dL Hct (39.0-53.0) % MCV (80.0-100.0) fL Neutrophils # (1.3-7.7) k/uL Lymphocytes # (1.0-4.8) k/uL BUN (9-20) mg/dL Creatinine (0.66-1.25) mg/dL Glucose (74-99) mg/dL POC Glucose (mg/dL) 138 H 152 H 103 H (75-99) mg/dL 11/09/19 11/09/19 Range/Units 05:51 05:51 WBC (3.8-10.6) k/uL RBC (4.30-5.90) m/uL Hgb (13.0-17.5) gm/dL Hct (39.0-53.0) % MCV (80.0-100.0) fL Neutrophils # (1.3-7.7) k/uL Lymphocytes # (1.0-4.8) k/uL BUN 26 H (9-20) mg/dL Creatinine 0.44 L 0.47 L (0.66-1.25) mg/dL Glucose 101 H (74-99) mg/dL POC Glucose (mg/dL) (75-99) mg/dL Microbiology - Last 24 Hours (Table) 11/07/19 23:31 Gram Stain - Preliminary Sputum 11/07/19 09:26 Blood Culture - Preliminary Blood No Growth after 24 hours Assessment and Plan Assessment: Sepsis secondary to acute bilateral pneumonia, worse on the right, community- acquired and COPD. Elevated CRP, elevated LDH, Coronavirus tested negative, negative for influenza A and B Acute COPD exacerbation Acute on chronic hypercapnic and Hypoxic respiratory failure secondary to the above, status post BiPAP Elevated d-dimer, acute PE ruled out. Borderline Hypotension, present on admission, secondary to the above, resolved. CAD with history of stent Hypertension lipidemia Prior nicotine dependence Hypothyroidism Positive alcohol use on Mondays,Wednesdays,Fridays- History of Thoracic aortic aneurysm 4.2 cm, reports outpatient monitoring, Plan: Continue on current medication regime ,monitoring and symptomatic treatment. Worsening hypoxia, chest x-ray ordered. Maintain nebulized bronchodilators, antibiotics and IV steroids. Continue on lidocaine patch/tramadol for pain management. Sputum culture pending. PT/OT consult in place, recommendations pending. Prognosis guarded given multiple complex medical issues. The impression and plan of care has been dictated as directed. : I performed a history and examination of this patient, discussed the same with the dictator. I agree with the dictator's note ,documented as a scribe. Any additional findings or plans will be noted.
[2019-11-09 16:37] LABS: Glucose,Whole Blood 113 mg/dL (75-99)
[2019-11-09 20:37] LABS: Glucose,Whole Blood 141 mg/dL (75-99)
[2019-11-10 06:20] LABS: Glucose,Whole Blood 93 mg/dL (75-99)
[2019-11-10] MEDS: INSULIN ASPART (NovoLOG) 100 UNIT/ML VIAL SQ SCH ×2 (06:40→13:52)
[2019-11-10] MEDS: methylPREDNISolone SOD SUCCI 40 MG/ML 1 ML VIAL IV SCH (07:27)
[2019-11-10 07:41] LABS: African American GFR (CKD) >90 (>60 ml/min/1.73 sqM); Non-African American GFR(CKD) >90 (>60 ml/min/1.73 sqM)
[2019-11-10] MEDS: IPRATROPIUM-ALBUTEROL 3 ML NEB INHALATION SCH ×3 (09:29→15:37)
[2019-11-10] MEDS: FORMOTEROL FUMARATE 20 MCG/2 ML NEBU INHALATION SCH ×2 (09:30→10:15)
[2019-11-10] MEDS: BUDESONIDE 1 MG/2 ML NEBU INHALATION SCH ×2 (09:30→10:15)
[2019-11-10] MEDS: HEPARIN SODIUM,PORCINE 5,000 UNIT/ML 1 ML VIAL SQ SCH (09:47)
[2019-11-10] MEDS: PANTOPRAZOLE 40 MG/10 ML VIAL IV SCH (09:48)
[2019-11-10] MEDS: AZITHROMYCIN 500 MG TAB PO SCH (09:48)
--- NOTE | 2019-11-10 11:19 | P.PN ---
Subjective Progress Note Date: 11/10/19 Principal diagnosis: Chronic obstructive pulmonary disease complicated by bibasilar pneumonia right greater than left The patient is seen today in follow-up 11/09/2019 on the selective care unit. He is currently resting comfortably in bed. Awake and alert in no acute distress. He is breathing easier today compared to yesterday. Denies any worsening shortness of breath, cough or congestion. No hemoptysis. Blood culture reveals no growth to date. Sputum culture reveals no growth. White count 25.0. Hemoglobin 10.9. Sodium 137. Potassium 4.2. Creatinine 0.47. He is continued on ceftriaxone and azithromycin along with DuoNeb inhalations, Pulmicort and Perforomist inhalations, IV Solu-Medrol. Maintaining O2 saturations in the 90s on 2 L/m per nasal cannula. He's been afebrile. Hemodynamically stable. He did not require BiPAP last night. The patient was seen in follow-up today 11/10/2019 on the cardiac stepdown unit. He is in no acute distress and is resting comfortably in bed. Awake, alert and oriented 3. He reports that his shortness of breath has improved and currently denies any shortness of breath at this time, cough or congestion. He did not have a chest x-ray completed today. He remains afebrile, his oxygen saturations are 97% on 2 L nasal cannula. Hemodynamically stable. He remains on Solu- Medrol 40 mg IV every 8 hours, Rocephin, Zithromax, DuoNeb's, Pulmicort and Perforomist inhalations. Remote telemetry showing normal sinus rhythm with occasional PACs heart rate 86. Objective - Vital Signs Vital signs: Vital Signs Temp 98.1 F 11/09/19 20:00 Pulse 99 11/10/19 10:40 Resp 18 11/10/19 04:00 BP 137/60 11/10/19 04:00 Pulse Ox 97 11/10/19 04:00 Intake & Output 11/09/19 11/10/19 11/10/19 18:59 06:59 18:59 Intake Total 934 Output Total 800 600 Balance 134 -600 Weight 58.4 kg Intake: Oral 934 Output: Urine 800 600 Other: Voiding Method Urinal # Voids 300 300 # Bowel Movements 1 1 - Exam Alert, pleasant 74-year-old gentleman, on 2 L nasal cannula, comfortable in no apparent distress. - Constitutional General appearance: Present: cooperative, no acute distress, thin - EENT Eyes: Present: PERRLA, normal appearance. Absent: scleral icterus ENT: Present: hearing grossly normal. Absent: thrush - Neck Details: Neck is supple, no lymphadenopathy, no JVD. - Respiratory Details: Lung sounds with few scattered crackles to his bilateral bases. Diminished to his bilateral bases. Respirations are symmetrical and nonlabored. - Cardiovascular Details: Regular rhythm and rate. S1 and S2 present, negative for S3, gallop or murmur. - Gastrointestinal Gastrointestinal Comment(s): Abdomen is soft, nontender and nondistended. Active bowel sounds present all 4 abdominal quadrants. No guarding or rigidity. - Integumentary Integumentary Comment(s): Skin is warm and dry. No clubbing or cyanosis is present. No rashes. - Neurologic Neurologic: Present: CNII-XII intact - Musculoskeletal Musculoskeletal: Present: generalized weakness, strength equal bilaterally - Psychiatric Psychiatric: Present: A&O x's 3, appropriate affect, intact judgment & insight - Allied health notes Allied health notes reviewed: nursing - Labs CBC & Chem 7: 11/09/19 10:53 11/10/19 06:55 Labs: Abnormal Lab Results - Last 24 Hours (Table) 11/09/19 11/09/19 11/09/19 Range/Units 11:14 16:36 20:35 Creatinine (0.66-1.25) mg/dL POC Glucose (mg/dL) 103 H 113 H 141 H (75-99) mg/dL 11/10/19 Range/Units 06:55 Creatinine 0.48 L (0.66-1.25) mg/dL POC Glucose (mg/dL) (75-99) mg/dL Microbiology - Last 24 Hours (Table) 11/07/19 09:26 Blood Culture - Preliminary Blood No Growth after 48 hours Assessment and Plan Assessment: 1 Acute exacerbation of chronic obstructive pulmonary disease complicated by bibasilar pneumonia, right greater than left, suspect community-acquired, CoVID 19 screen was negative. 2 History of severe chronic obstructive pulmonary disease with oxygen dependent and chronic hypoxemic respiratory failure 3 Previous history of heavy tobacco dependence 4 History of coronary artery disease with previous stent placement 5 History of skin cancer 6 Osteoarthritis 7 Previous history of pneumonia 8 Thoracic aortic aneurysm Plan: 1. The patient was seen and evaluated by Dr. Reid 2. He is improve, and per the pulmonary medicine standpoint can be discharged home when okay with primary care service. 3. Discontinue his Solu-Medrol and start him on a prednisone taper. Prednisone 40 mg by mouth daily 4 days, and then prednisone 30 mg by mouth daily 4 days, then prednisone 20 mg by mouth daily 4 days, then prednisone 10 mg by mouth daily 4 days then discontinue. 4. We'll continue to follow. I, the cosigning physician, performed a history & physical examination of the patient. Lungs sounds crackles in the bilateral posterior bases, diminished. Maintaining good O2 saturations in the 90s on 2 L/m per nasal cannula. I dis cussed the assessment and plan of care with Scot Yu NP. I attest to the above note as dictated by him. Time with Patient: Less than 30
[2019-11-10 11:21] VITALS: RESP 20
--- NOTE | 2019-11-10 11:54 | P.DS ---
Providers Date of admission: 11/07/19 11:44 Expected date of discharge: 11/10/19 Attending physician: Brendan Chan Consults: 11/07/19 11:44 Consult Physician Routine Consulting Provider: Alvaro Reid Reason/Comments: dypsnea Do you want consulting provider notified?: Yes Primary care physician: Brendan [facility] Course: This is a 73-year-old gentleman with history of CAD with stent, COPD, prior nicotine dependence, 3 drinks every Tuesday,Tuesday, Tuesday aortic aneurysm, presented with worsening shortness of breath, hemoptysis times a few days accompanied by mild thoracic back pain worsened by deep inspiration. Vital signs stable per EMS /sputum in the ER mucousy.Hemoglobin 15.2, platelets 318. On arrival patient was tachycardic with heart rates in the 130s, tachypneic with respiratory rate in the high 20s, maintaining O2 sats in the 90s on 80% BiPAP afebrile T-max of 98.8, WBC 22.8, hypotensive, systolic blood pressures in the 80s with map of 63. Chest x-ray reporting right lower lobe and mild left lower lobe infiltrates, minimal blunting of the left costophrenic angle suggestive of minimal left pleural effusion, underlying mass of the right not excluded. D- dimer 6.69. Chest CTA reported by bibasilar posterior lung infiltrates worse on the right, no acute PE, advanced emphysematous changes. ABGs on 80% FiO2 reported pH 7.43 ,pO2 78, bicarb 26, CO2 28, O2 sat 94.6, base excess 2. EKG reporting sinus tachycardia with PVCs, right ventricular hypertrophy. Magnesium 1.9, potassium 4.6, BUN 25 creatinine 0.78 .Troponin negative 1. Testing Influenza A and B ordered. Coronavirus tested negative. C-reactive protein 162.4, LDH 1024, alk phos 134, total bili 1.4 . Blood sugars ranging from 59- 170 .Received IV glucose, fluid resuscitation with broad-spectrum antibiotics, Zithromax, Rocephin, vancomycin. 11/08/2019 maintained on nebulized bronchodilators, Rocephin and Zithromax. Breathing improving, weaned off BiPAP and currently maintaining O2 sats in the 90s on 4 L nasal cannula. Productive cough with brown sputum. Tested negative for influenza A and B. Evaluated by pulmonary, with steroids added to medication regime. Reports chronic back pain controlled with lidocaine patch. Telemetry sinus rhythm. Denies chest pain, palpitations or increasing shortness of breath. 11/09/2019 worsening hypoxia, now requiring 4 L nasal cannula to maintain O2 sats in the 90s. Chest x-ray ordered. Afebrile, preliminary blood cultures negative at 24 hours, sputum culture pending. Did not require BiPAP last night. 11/10/2019: Patient is doing better. Oxygen saturations remaining in the 90s on 2 L. He is down his steroid requirement and pulmonology switched him to oral prednisone. They've cleared him for discharge. Sputum culture showed rare [place], which is probably contaminant. He has required BiPAP and 2 nights. He does have home oxygen. He is now being scheduled for discharge. Patient Condition at Discharge: Fair Plan - Discharge Summary Discharge Rx Participant: Yes New Discharge Prescriptions: New Acetaminophen Tab [Tylenol] 650 mg PO Q6HR PRN tab PRN Reason: Mild Pain Or Fever > 100.5 predniSONE See Taper PO DAILY #30 tab Continue Aspirin EC [Ecotrin Low Dose] 81 mg PO DAILY Tiotropium Br/Olodaterol HCl [Stiolto Respimat Inhal [place]] 2 puff INHALATION RT-DAILY@1400 Fluticasone/Vilanterol [Breo Ellipta 100-25 Mcg Inhaler] 1 puff PO RT-DAILY Multivitamins, Thera [Multivitamin (formulary)] 1 tab PO DAILY Omeprazole 20 mg PO BID Vitamin B Complex 1 cap PO DAILY Cyclobenzaprine [Flexeril] 10 mg PO TID PRN PRN Reason: Muscle Spasm Nitroglycerin Sl Tabs [Nitrostat] 0.4 mg SUBLINGUAL Q5M PRN #30 tab PRN Reason: Chest Pain Atorvastatin [Lipitor] 10 mg PO DAILY #30 tab Albuterol Sulfate [Ventolin HFA] 2 puff INHALATION RT-Q6H PRN PRN Reason: Shortness Of Breath HYDROcodone/APAP 5-325MG [[place] 5-325] 0.5 - 1 tab PO Q6H PRN PRN Reason: Pain Discharge Medication List Aspirin EC [Ecotrin Low Dose] 81 mg PO DAILY 07/21/16 [History] Fluticasone/Vilanterol [Breo Ellipta 100-25 Mcg Inhaler] 1 puff PO RT-DAILY 05/14/19 [History] Multivitamins, Thera [Multivitamin (formulary)] 1 tab PO DAILY 05/14/19 [History] Tiotropium Br/Olodaterol HCl [Stiolto Respimat Inhal [place]] 2 puff INHALATION RT-DAILY@1400 05/14/19 [History] Omeprazole 20 mg PO BID 06/13/19 [History] Vitamin B Complex 1 cap PO DAILY 06/13/19 [History] Cyclobenzaprine [Flexeril] 10 mg PO TID PRN 08/30/19 [History] Atorvastatin [Lipitor] 10 mg PO DAILY #30 tab 09/02/19 [Rx] Nitroglycerin Sl Tabs [Nitrostat] 0.4 mg SUBLINGUAL Q5M PRN #30 tab 09/02/19 [Rx] Albuterol Sulfate [Ventolin HFA] 2 puff INHALATION RT-Q6H PRN 11/07/19 [History] HYDROcodone/APAP 5-325MG [[place] 5-325] 0.5 - 1 tab PO Q6H PRN 11/07/19 [History] Acetaminophen Tab [Tylenol] 650 mg PO Q6HR PRN tab 11/10/19 [Rx] predniSONE See Taper PO DAILY #30 tab 11/10/19 [Rx] Follow up Appointment(s)/Referral(s): Brendan Chan MD [Primary Care Provider] - 1-2 days Alvaro Reid DO [Doctor of Osteopathic Medicine] - 1 Week Discharge Disposition: HOME SELF-CARE
[2019-11-10 12:19] LABS: Glucose,Whole Blood 86 mg/dL (75-99)
[2019-11-10 15:44] VITALS: BP 120/73; PULSE 86; TEMP 98.1
[2019-11-11] MEDS ORDERED: predniSONE 20 MG TAB PO SCH (09:00)
== END 2019-11-10 16:40 | disposition home or self-care (01) | DRG 871 ==
LOC: EC 09:00 → 3SCARD 11:44
PROVIDERS: ADMIT Family Medicine; ATTEND Family Medicine
PROC: 5A09457 Assistance with Respiratory Ventilation, 24-96 Consecutive Hours, Continuous Positive Airway Pressure (ICD-10-PCS; principal; 2019-11-07)
PROC: 5A09357 Assistance with Respiratory Ventilation, Less than 24 Consecutive Hours, Continuous Positive Airway Pressure (ICD-10-PCS; 2019-11-07)
DX: A41.9 Sepsis, unspecified organism (principal); J96.21 Acute and chronic respiratory failure with hypoxia; J96.22 Acute and chronic respiratory failure with hypercapnia; J18.9 Pneumonia, unspecified organism; R04.2 Hemoptysis; J44.0 Chronic obstructive pulmonary disease with (acute) lower respiratory infection; J44.1 Chronic obstructive pulmonary disease with (acute) exacerbation; I11.9 Hypertensive heart disease without heart failure; I71.2 Thoracic aortic aneurysm, without rupture; E86.0 Dehydration; Z20.828 Contact with and (suspected) exposure to other viral communicable diseases; E78.5 Hyperlipidemia, unspecified; E03.9 Hypothyroidism, unspecified; I25.118 Atherosclerotic heart disease of native coronary artery with other forms of angina pectoris; G89.29 Other chronic pain; M54.9 Dorsalgia, unspecified; I49.3 Ventricular premature depolarization; M19.90 Unspecified osteoarthritis, unspecified site; Z99.81 Dependence on supplemental oxygen; Z79.82 Long term (current) use of aspirin; Z79.51 Long term (current) use of inhaled steroids; Z79.899 Other long term (current) drug therapy; Z87.891 Personal history of nicotine dependence; Z95.5 Presence of coronary angioplasty implant and graft; Z87.01 Personal history of pneumonia (recurrent); Z85.828 Personal history of other malignant neoplasm of skin; Z98.890 Other specified postprocedural states; Z90.49 Acquired absence of other specified parts of digestive tract; Z80.43 Family history of malignant neoplasm of testis; Z80.8 Family history of malignant neoplasm of other organs or systems
CPT/HCPCS: 36415; 36600; 71045; 71275; 80048; 80053; 82565; 82805; 83605; 83615; 83735; 83880; 84145; 84484; 85025; 85027; 85379; 85610; 85730; 86140; 87040; 87070; 87205; 87502; 87635; 93005; 94003; 94640; 94660; 96361; 96365; 96366; 96375; 96376; 99291

== ENCOUNTER → 2019-12-12 | Outpatient (CLI) | payer MEDICARE ==
--- NOTE | 2019-12-12 09:57 | CT ---
EXAMINATION TYPE: CT thor lumbar spine wo con DATE OF EXAM: 12/12/2019 COMPARISON: CTA chest November 07, 2019. Lumbar spine x-ray August 09, 2019. HISTORY: Mid to low back pain, recent falls. CT DLP: 1349 mGycm Automated exposure control for dose reduction was used. CT scan of the thoracic and lumbar spine. FINDINGS: Osseous structures redemonstrated demineralized. Redemonstration of exaggerated thoracic kyphosis. Re demonstration of chronic moderate compression type fractures at T7 and T9 levels and more mild compre ssion type fracture at the T10 level. In interval from prior CT there is new height loss and sclerosi s consistent with subacute fracture involving the superior T12 vertebra for reference sagittal image 30. Persistent moderate to severe chronic compression fracture L1 level. Mild to moderate height loss involving superior L3 endplate and moderate compression fracture L4 level are new from lumbar spine x-ray August 09, 2019 favored subacute or chronic in age. L4 level shows prominent sclerosis. No def initive linear lucency in the L3 level to suggest acute fracture. This is felt subacute but more rece nt from the L4 fracture. No suspicious retropulsion into the spinal canal. Mild multilevel disc space narrowing in the thoracic spine. Mild to moderate multilevel anterior and lateral spurring in the karson mbar spine. Slight scoliotic curvature on coronal images. Axial images show disc herniation and facet arthropathy contributing to spinal canal effacement and n eural foraminal narrowing L2-L3 level axial image 122 and L3-L4 level axial image 132. Fairly advanced emphysematous change of visualized lungs with persistent bronchiectasis along with ch ronic consolidation and peribronchial wall thickening involving posterior aspect right lower lobe. No significant change from most recent CTA chest study. Posteriorly in the right lower lobe. Finding ne w from June 13, 2019 CTA chest study. Persistence of consolidation makes underlying mass or neopl asm not entirely excluded. Coronary artery calcification redemonstrated which is noted marked with underlying coronary artery di sease. Enlarged pulmonary arteries redemonstrated, CT findings consistent with underlying pulmonary h ypertension. Gallbladder has distended margins similar to the prior CTA chest study. Moderate calcified plaque of the aorta extends into iliac branch vessels. Moderate to severe Prominence of fecal material in the r ight and proximal transverse colon. No suspicious small or large bowel dilatation. IMPRESSION: 1. Demineralization with multiple subacute and chronic compression type fracture deformities as detai led above in the thoracolumbar spine. Some subacute fractures are new from November 06 study. No suspici ous posterior retropulsion or bony fragmentation into the anterior spinal canal. 2. [id number] proximal colonic fecal stasis. 3. Advanced emphysematous change with underlying pulmonary hypertension. Persistent masslike consolid ation posterior aspect right lower lobe makes underlying neoplasm not excluded. Correlate clinically. Consider PET/CT follow-up.
== END | disposition home or self-care (01) ==
LOC: RADCTMAIN 08:48
PROVIDERS: ATTEND Family Medicine
DX: M48.55XA Collapsed vertebra, not elsewhere classified, thoracolumbar region, initial encounter for fracture (principal); M43.8X5 Other specified deforming dorsopathies, thoracolumbar region; Z91.81 History of falling
CPT/HCPCS: 72128; 72131

== ENCOUNTER → 2020-02-15 | Outpatient (CLI) | payer MEDICARE ==
--- NOTE | 2020-02-15 17:54 | MR ---
EXAMINATION TYPE: MR lumbar spine wo con DATE OF EXAM: 02/15/2020 COMPARISON: CT lumbar spine 12/12/2019 HISTORY: Compression fractures TECHNIQUE: Multiplanar, multisequence images of the lumbar spine were acquired. The compression deformities have progressed at L4, L1. There is now approximately 75% vertebral heigh t loss at L1 or greater, close to 75% vertebral body height loss at L4. There is multilevel spondylos is present. Posterior extension of endplate disc complex causes mild anterior mass effect on the thec al sac. No significant foraminal encroachment on the right, on the left there is lateral extension of disc encroaching somewhat on the foramina. The conus is at T12-L1 and is unremarkable. Abdominal aor ta is ectatic at 3.2 cm. T12-L1: Superior endplate of L1 extends posteriorly causes mild anterior mass effect on the thecal sa c. Superior endplate of T12 shows some mild loss of height. Vacuum phenomenon present at T11-12. L1-L2: Normal disc appearance without desiccation. No herniation, protrusion or disc bulging. No ca nal stenosis is present. Foramina are patent bilaterally. L2-L3: Superior endplate at L3 causes only mild anterior mass effect on the thecal sac. L3-L4: Posterior extension of endplate disc complex causes anterior mass effect on the thecal sac. Ci rcumferential extension endplate disc complex causes foraminal encroachment greater on the left than on the right. Hypertrophic change of the ligamentum flavum causes posterior lateral mass effect on th e thecal sac. On mild canal stenosis. L4-L5: Posterior broad-based disc bulge, endplate disc complex contacts anterior thecal sac. There is facet arthropathy with hypertrophy ligamentum flavum. Significant foraminal encroachment is present on the right. L5-S1: Posterior extension of endplate disc complex causes only mild posterior encroachment on the sp inal canal. There is facet arthropathy change. Circumferential endplate disc complex causes some mild foraminal encroachment. IMPRESSION: Multiple lumbar compression fractures, multilevel foraminal encroachment, degenerative disc disease a nd facet arthropathy
== END | disposition home or self-care (01) ==
LOC: RADMRIMAIN 14:09
PROVIDERS: ATTEND Orthopaedic Surgery Orthopaedic Surgery of the Spine
DX: S32.018A Other fracture of first lumbar vertebra, initial encounter for closed fracture (principal); S32.048A Other fracture of fourth lumbar vertebra, initial encounter for closed fracture; M51.36 Other intervertebral disc degeneration, lumbar region; M47.816 Spondylosis without myelopathy or radiculopathy, lumbar region; J44.9 Chronic obstructive pulmonary disease, unspecified
CPT/HCPCS: 72148

== ENCOUNTER 2020-07-17 09:47 | Inpatient (IN) | payer MEDICARE ==
[2020-07-17] MEDS ORDERED: NITROGLYCERIN SL TABS 0.4 MG TAB SUBLINGUAL STA (09:54)
[2020-07-17] MEDS ORDERED: ASPIRIN 81 MG PO STA ×2 (09:54→10:04)
--- NOTE | 2020-07-17 10:02 | ED ---
Chest Pain HPI - General Stated Complaint: Chest pain Time Seen by Provider: 07/17/20 09:54 - History of Present Illness Initial Comments: 74-year-old male with history of COPD on 3 L of home oxygen coronary artery disease with one stent who sees Dr. Cosby, HTN and atrial fibrillation presenting to the ER today for chest pain. Pt states that at 6:15AM this morning he has chest pain that was center of the chest radiating to the back. It is pressure in nature. Patietn denies jaw or arm pain. Admits to dyspnea increased from baseline. He states if he coughs or takes a deep that there is a left sided pinch. pt denies leg swelling, nausea, vomiting, fevers. He states he does have a chronic cough, states he feels this is slightly increased. pt denies additional complaints. - Related Data Home Medications Medication Instructions Recorded Confirmed Aspirin EC [Ecotrin Low Dose] 81 mg PO DAILY 07/21/16 11/07/19 Fluticasone/Vilanterol [Breo 1 puff PO RT-DAILY 05/14/19 11/07/19 Ellipta 100-25 Mcg Inhaler] Multivitamins, Thera [Multivitamin 1 tab PO DAILY 05/14/19 11/07/19 (formulary)] Tiotropium Br/Olodaterol HCl 2 puff INHALATION RT-DAILY@1400 05/14/19 11/07/19 [Stiolto Respimat Inhal [place]] Omeprazole 20 mg PO BID 06/13/19 11/07/19 Vitamin B Complex 1 cap PO DAILY 06/13/19 11/07/19 Cyclobenzaprine [Flexeril] 10 mg PO TID PRN 08/30/19 11/07/19 Albuterol Sulfate [Ventolin HFA] 2 puff INHALATION RT-Q6H PRN 11/07/19 11/07/19 HYDROcodone/APAP 5-325MG [[place] 0.5 - 1 tab PO Q6H PRN 11/07/19 11/07/19 5-325] Previous Rx's Medication Instructions Recorded Atorvastatin [Lipitor] 10 mg PO DAILY #30 tab 09/02/19 Nitroglycerin Sl Tabs [Nitrostat] 0.4 mg SUBLINGUAL Q5M PRN #30 tab 09/02/19 Acetaminophen Tab [Tylenol] 650 mg PO Q6HR PRN tab 11/10/19 predniSONE See Taper PO DAILY #30 tab 11/10/19 Allergies Allergy/AdvReac Type Severity Reaction Status Date / Time No Known Allergies Allergy Verified 07/17/20 10:06 Review of Systems ROS Statement: Those systems with pertinent positive or pertinent negative responses have been documented in the HPI. ROS Other: All systems not noted in ROS Statement are negative. 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, PT STATED HE HAS ENLARGED AORTA(PER CT SCAN -THORACIC AORTIC ANEURYSM 4.2 CM), "HOARSNESS", History of Any Multi-Drug Resistant Organisms: None Reported Past Surgical History: Adenoidectomy, Appendectomy, Heart Catheterization With Stent, Hernia Repair, Orthopedic Surgery, Tonsillectomy Additional Past Surgical History / Comment(s): LET ROTATOR CUFF REPAIR,ANAL FISTULA REPAIR, EGD/COLONOSCOPY,MULTIPLE BASAL CELL 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,AGUILAR INGUINAL HERNIA REPAIR.RIGHT SHOULDER SURGERY X2 Past Anesthesia/Blood Transfusion Reactions: No Reported Reaction Date of Last Stent Placement:: 2005 Past Psychological History: No Psychological Hx Reported Past Alcohol Use History: Occasional Past Drug Use History: None Reported - Past Family History Father Family Medical History: Cancer Additional Family Medical History / Comment(s): TESTICULAR, BONE Mother Family Medical History: Cancer Additional Family Medical History / Comment(s): BONE General Exam - General Exam Comments Initial Comments: General: The patient is awake and alert Eye: +3 mm pupils are equal, round and reactive to light, extra-ocular movements are intact. No nystagmus. There is normal conjunctiva bilaterally. No signs of icterus. Ears, nose, mouth and throat: There are moist mucous membranes and no oral lesions. Neck: The neck is supple, there is no tenderness or JVD. Cardiovascular: There is a regular rate and rhythm. No murmur, rub or gallop is appreciated. Respiratory: Respirations are labored, breath sounds are equal-diminshed. No wheezes, stridor. some rhonchi noted. no rales Gastrointestinal: Soft, non-distended, non-tender abdomen without masses or organomegaly noted. There is no rebound or guarding present. Musculoskeletal: Normal ROM, no tenderness. Strength 5/5. Sensation intact. Radial and DP pulses equal bilaterally 2+. Neurological: A&O x 3. CN II-XII intact grossly, There are no obvious motor or sensory deficits. Coordination appears grossly intact. Speech is normal. Skin: Skin is warm and dry and no rashes or lesions are noted. NO calf pain, No LE edema. Psychiatric: Cooperative, appropriate mood & affect, normal judgment. Course Vital Signs 07/17/20 07/17/20 10:03 11:05 Temperature 97.9 F Pulse Rate 80 62 Respiratory 20 18 Rate Blood Pressure 118/73 110/71 O2 Sat by Pulse 74 L 96 Oximetry Chest Pain MDM - MDM 74yo with chest pain. pain resolved while in ER. EKG no acute ST changes. Initial troponin (-). Dimer elevated, CTA no obvious large central PE. patient saturating on 3L his baseline. patient covid (-). Patient does have leukocytosis. patient has atelectasis at lung bases will cover with abx rocephin to ensure this is not developing infiltrate. at this time after discussing case with Adriano Araya we feel patient is stable for chest pain r/o admission and further monitoring/evaluation. Patient agreeable. Disposition Clinical Impression: Chest pain, Leukocytosis Disposition: ADMITTED IP TO THIS HOSP Condition: Stable Is patient prescribed a controlled substance at d/c from ED?: No Referrals: Brendan Chan MD [Primary Care Provider] - 1-2 days Time of Disposition: 12:04 Decision to Admit Reason: Admit from EC Decision Date: 07/17/20 Decision Time: 12:04
[2020-07-17 10:11] LABS: Basophils # (A) 0.3 k/uL (0-0.2); Basophils % (A) 1 %; Eosinophils # (A) 0.6 k/uL (0-0.7); Eosinophils % (A) 3 %; HCT 45.1 % (39.0-53.0); HGB 14.9 gm/dL (13.0-17.5); Lymphocytes # (A) 2.8 k/uL (1.0-4.8); Lymphocytes % (A) 13 %; MCHC 33.2 g/dL (31.0-37.0); MCV 99.6 fL (80.0-100.0); Mean Platelet Volume 7.2; Monocytes # (A) 0.8 k/uL (0-1.0); Monocytes % (A) 4 %; Neutrophils # (A) 16.9 k/uL (1.3-7.7); Neutrophils % (A) 78 %; Platelet Count 360 k/uL (150-450); RBC 4.52 m/uL (4.30-5.90); RDW 12.7 % (11.5-15.5); WBC 21.6 k/uL (3.8-10.6)
[2020-07-17 10:22] LABS: ALT 48 U/L (4-49); AST 45 U/L (17-59); African American GFR (CKD) >90 (>60 ml/min/1.73 sqM); Albumin 3.8 g/dL (3.5-5.0); Alkaline Phosphatase 104 U/L (38-126); Anion Gap 4 mmol/L; Blood Urea Nitrogen 27 mg/dL (9-20); Calcium 9.3 mg/dL (8.4-10.2); Carbon Dioxide 33 mmol/L (22-30); Chloride 100 mmol/L (98-107); Glucose 96 mg/dL (74-99); Magnesium 1.7 mg/dL (1.6-2.3); Non-African American GFR(CKD) >90 (>60 ml/min/1.73 sqM); Potassium 3.8 mmol/L (3.5-5.1); Sodium 137 mmol/L (137-145); Total Bilirubin 0.6 mg/dL (0.2-1.3); Total Protein 7.1 g/dL (6.3-8.2)
[2020-07-17 10:28] LABS: Partial Thromboplastin Time 22.9 sec (22.0-30.0); Prothrombin Time 10.5 sec (9.0-12.0)
[2020-07-17 10:32] LABS: D-Dimer 1.49 mg/L FEU (<0.60)
[2020-07-17] MEDS ORDERED: SODIUM CHLORIDE 0.9% 500 ML 250 ML IV ONE (10:43)
--- NOTE | 2020-07-17 10:47 | XR ---
EXAM: XR Chest, 2 Views CLINICAL HISTORY: ITS.REASON XR Reason: Chest Pain TECHNIQUE: Frontal and lateral views of the chest. COMPARISON: 01/07/20 FINDINGS: Lungs: Increased lucency in the left mid to lower chest with overall hyperinflation likely underlying emphysema. Slight increase coarse lung markings in the mid to lower lung zones, unchanged likely chronic. Pleural space: Unremarkable. No pneumothorax. Heart: Stable and unchanged Mediastinum: Calcified tortuous thoracic aorta is seen. Bones/joints: Degenerative changes in the thoracic spine. Again seen are compression deformities of the mid to lower thoracic spine, likely chronic. Tubes, lines and devices: Calcified tortuous thoracic aorta again seen. Overlying chest leads obscure portion of the chest. IMPRESSION: 1. No dense consolidation. 2. Findings as described, likely chronic and emphysematous change.
--- NOTE | 2020-07-17 11:59 | CT ---
EXAM: CT Angiography Chest With Intravenous Contrast CLINICAL HISTORY: D-dimer elevated TECHNIQUE: Axial computed tomographic angiography images of the chest with intravenous contrast. CTDI is 10 mGy and DLP is 246 mGy-cm. This CT exam was performed using one or more of the following dose reduction techniques: automated exposure control, adjustment of the mA and/or kV according to patient size, and/or use of iterative reconstruction technique. MIP reconstructed images were created and reviewed. COMPARISON: Correlated with earlier chest radiograph and November 07, 2019 CT exam. FINDINGS: Pulmonary arteries: No definite evidence of PE. More peripheral branches are suboptimally evaluated due to respiratory motion. Aorta: Normal caliber thoracic aorta with atherosclerotic disease. Hepatic veins: Reflux of contrast into hepatic veins suggestive of elevated right-sided pressures. Lungs: Severe bullous emphysematous disease. Mild bilateral posterior lower lobe atelectasis versus infiltrates. No mass. Pleural space: Unremarkable. No significant effusion. No pneumothorax. Heart: Unremarkable. No cardiomegaly. No significant pericardial effusion. Bones/joints: No acute fracture. No dislocation. Multilevel chronic compression deformities, similar to prior. Soft tissues: Unremarkable. Lymph nodes: Unremarkable. No enlarged lymph nodes. IMPRESSION: Severe bullous emphysematous disease. Mild bilateral posterior lower lobe atelectasis versus infiltrates. No pleural effusions. No definite PE. More peripheral branches are suboptimally evaluated due to respiratory motion and underlying emphysematous disease.
[2020-07-17] MEDS ORDERED: NALOXONE 0.4 MG/ML 1 ML VIAL IV PRN (12:02)
[2020-07-17] MEDS ORDERED: AZITHROMYCIN 500 MG in SODIUM CHLORIDE 0.9% 250 ML IVPB STA (13:04)
[2020-07-17] MEDS: IPRATROPIUM 0.5 MG/2.5 ML NEBU INHALATION SCH ×2 (14:59→19:58)
--- NOTE | 2020-07-17 16:05 | P.HPIM ---
History of Present Illness H&P Date: 07/17/20 Chief Complaint: Chest pain 72-year-old male patient although to the practice. Presented emergency room earlier this morning with chief complaint of chest pressure that was in the center of the chest and was radiating to the back. Patient has long-standing history of COPD and is currently on 3 L home oxygen at this time, coronary artery disease with 1 stent, hypertension and atrial fibrillation. The patient denies jaw or arm pain, nausea vomiting, dizziness or syncope. He does admit to having dyspnea that was greater than his baseline but now states that he is back to his norm. Most recent set of vital signs he is afebrile 97.9, pulse rate is 62, respiratory rate of 18, oxygen saturation 96% on 2 L nasal cannula and has a blood pressure of 102/68. Most recent set of lab work CBC has only WBC count 21.6 hemoglobin of 14.9, hematocrit 45.1, platelet count of 360. Coag studies showed a PT of 10.5, INR 1.0, APTT of 22.9, d-dimer 1.49 in which a CTA was completed and resulted with no definite pulmonary embolus at this time. Chemistry reveals sodium 137, potassium 3.8, chloride 100, carbon dioxide 33, JAMILA 27, creatinine 0.60. Serial troponins have been ordered the first 2 are negative at less than 0.012 for both with one remaining to be completed. EKG resulted in normal sinus rhythm with a rate of 69. Chest x-ray this morning impression was no dense consolidation, and findings as described likely chronic and emphysematous change. Review of Systems Constitutional: Reports as per HPI Ears, nose, mouth and throat: Reports as per HPI, Denies ant. neck pain, Denies bleeding gums, Denies dental pain, Denies dysphagia, Denies epistaxis, Denies headache, Denies hoarseness, Denies mouth pain, Denies nasal congestion, Denies nasal discharge, Denies neck fullness/pressure, Denies neck lump, Denies nose pain, Denies odynophagia, Denies post-nasal drip, Denies sinus pain, Denies sinus pressure, Denies swelling in mouth, Denies swelling in throat, Denies sore throat, Denies vertigo, Denies voice changes Cardiovascular: Reports as per HPI, Reports chest pain, Reports dyspnea on exertion, Reports shortness of breath, Denies claudication, Denies decreased exe rcise tolerance, Denies edema, Denies high blood pressure, Denies irregular heart beat, Denies leg edema, Denies lightheadedness, Denies orthopnea, Denies palpitations, Denies paroxysmal nocturnal dyspnea, Denies phlebitis, Denies rapid heart beat, Denies syncope Respiratory: Reports as per HPI, Reports cough, Reports dyspnea, Reports home oxygen Gastrointestinal: Reports as per HPI, Denies abdominal pain, Denies belching, Denies bloating, Denies BRBPR, Denies change in bowel habits, Denies coffee ground emesis, Denies constipation, Denies diarrhea, Denies dyspepsia, Denies early satiety, Denies excessive gas, Denies heartburn, Denies hematemesis, Denies hematochezia, Denies indigestion, Denies jaundice, Denies lactose intolerance, Denies loss of appetite, Denies melena, Denies nausea, Denies vomiting Genitourinary: Reports as per HPI, Denies decreased libido, Denies difficulties fathering child, Denies discharge, Denies dysuria, Denies erectile dysfunction, Denies flank pain, Denies genital pain, Denies genital sores, Denies hematuria, Denies impotence, Denies incontinence, Denies kidney stones, Denies nocturia, Denies polyuria, Denies testicular lump, Denies testicular pain, Denies urinary frequency, Denies urinary hesitancy, Denies urinary retention Musculoskeletal: Reports as per HPI, Denies arm numbness/tingling, Denies atrophy, Denies fractures, Denies frequent falls, Denies gait dysfunction, Denies hot joints, Denies leg numbness/tingling, Denies limitation of motion, Denies loss of height, Denies low back pain, Denies morning stiffness, Denies muscle cramps, Denies muscle weakness, Denies myalgias, Denies neck pain, Denies neck stiffness, Denies prior amputations, Denies redness of joints, Denies shooting arm pain, Denies shooting leg pain Integumentary: Reports as per HPI, Denies acne, Denies boils, Denies brittle nails, Denies change in hair/nails, Denies color changes, Denies darkening of skin, Denies depigmentation, Denies dryness, Denies foot/leg ulcers, Denies growths, Denies hirsutism, Denies lesions, Denies onychomycosis, Denies pruritus, Denies rash, Denies sores, Denies striae, Denies unusual bruising, Denies wounds Neurological: Reports as per HPI, Denies aphasia, Denies ataxia, Denies balance difficulties, Denies burning pain, Denies change in mentation, Denies change in smell/taste, Denies change in speech, Denies confusion, Denies convulsions, Denies double vision, Denies gait dysfunction, Denies head injury, Denies headaches, Denies hearing difficulties, Denies lack of coordination, Denies loss of vision, Denies memory loss, Denies migraines, Denies motor disturbance, Denies numbness, Denies paralysis, Denies paresthesias, Denies seizures, Denies sensory deficit, Denies spasticity, Denies syncope, Denies tic, Denies tingling, Denies transient paralysis, Denies tremors, Denies vertigo, Denies weakness, Denies visual changes Psychiatric: Reports as per HPI, Denies anhedonia, Denies anxiety, Denies anxiety attacks, Denies change in appetite, Denies change in libido, Denies change in sleep habits, Denies confusion, Denies depression, Denies difficulty concentrating, Denies disorientation, Denies hallucinations, Denies hopelessness, Denies hypersomnia, Denies insomnia, Denies irritability, Denies memory loss, Denies mood swings, Denies paranoia, Denies sadness/tearfulness, Denies sleep disturbances, Denies suicidal ideation Endocrine: Reports as per HPI, Denies cold intolerance, Denies deepening of the voice, Denies excessive sweating, Denies excessive thirst, Denies fatigue, Denies flushing, Denies heat intolerance, Denies high blood sugars, Denies increase in ring/shoe/hat size, Denies low blood sugars, Denies nocturia, Denies palpitations, Denies polydipsia, Denies polyphagia, Denies polyuria, Denies proptosis, Denies recent glucocorticoid use, Denies thyroid mass, Denies weight change Hematologic/Lymphatic: Reports as per HPI, Denies easy bleeding, Denies easy bruising, Denies lymphadenopathy, Denies lymphedema, Denies thrombophilia Allergic/Immunologic: Reports as per HPI, Denies allergic rhinitis, Denies anaphylaxis, Denies angioedema, Denies gluten intolerance, Denies persistent infections, Denies seasonal allergies, Denies urticaria, Denies wheezing 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, PT STATED HE HAS ENLARGED AORTA(PER CT SCAN -THORACIC AORTIC ANEURYSM 4.2 CM), "HOARSNESS", History of Any Multi-Drug Resistant Organisms: None Reported Past Surgical History: Adenoidectomy, Appendectomy, Heart Catheterization With Stent, Hernia Repair, Orthopedic Surgery, Tonsillectomy Additional Past Surgical History / Comment(s): LET ROTATOR CUFF REPAIR,ANAL FISTULA REPAIR, EGD/COLONOSCOPY,MULTIPLE BASAL CELL 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,AGUILAR INGUINAL HERNIA REPAIR.RIGHT SHOULDER SURGERY X2 Past Anesthesia/Blood Transfusion Reactions: No Reported Reaction Date of Last Stent Placement:: 2005 Past Psychological History: No Psychological Hx Reported Past Alcohol Use History: Occasional Past Drug Use History: None Reported - Past Family History Father Family Medical History: Cancer Additional Family Medical History / Comment(s): TESTICULAR, BONE Mother Family Medical History: Cancer Additional Family Medical History / Comment(s): BONE Medications and Allergies Home Medications Medication Instructions Recorded Confirmed Type Aspirin EC [Ecotrin Low Dose] 81 mg PO HS 07/21/16 07/17/20 History Fluticasone/Vilanterol [Breo 1 puff PO RT-DAILY 05/14/19 07/17/20 History Ellipta 100-25 Mcg Inhaler] Multivitamins, Thera [Multivitamin 1 tab PO DAILY 05/14/19 07/17/20 History (formulary)] Tiotropium Br/Olodaterol HCl 2 puff INHALATION RT-DAILY@1400 05/14/19 07/17/20 History [Stiolto Respimat Inhal [place]] Omeprazole 20 mg PO BID 06/13/19 07/17/20 History Vitamin B Complex 1 cap PO DAILY 06/13/19 07/17/20 History Cyclobenzaprine [Flexeril] 10 mg PO BID 08/30/19 07/17/20 History HYDROcodone/APAP 5-325MG [[place] 1 tab PO DAILY 11/07/19 07/17/20 History 5-325] Atorvastatin [Lipitor] 10 mg PO HS 07/17/20 07/17/20 History L.acidoph,Paracasei, B.lactis 1 cap PO DAILY 07/17/20 07/17/20 History [Probiotic] atenoloL [Atenolol] 25 mg PO DAILY 07/17/20 07/17/20 History bisacodyL [Dulcolax] 10 mg PO DAILY 07/17/20 07/17/20 History predniSONE See Taper PO DAILY@1400 07/17/20 07/17/20 History Allergies Allergy/AdvReac Type Severity Reaction Status Date / Time No Known Allergies Allergy Verified 07/17/20 13:51 Physical Exam Vitals: Vital Signs Temp Pulse Resp BP Pulse Ox 07/17/20 14:34 97.9 F 62 18 102/68 96 07/17/20 14:00 62 18 102/68 96 07/17/20 13:00 62 18 100/69 96 07/17/20 12:00 62 18 96 07/17/20 11:05 62 18 110/71 96 07/17/20 10:03 97.9 F 80 20 118/73 74 L Intake and Output 07/17/20 07/17/20 07/17/20 06:59 14:59 22:59 Other: Weight 53.524 kg GENERAL: Alert and oriented, cachectic and in no acute distress. HEAD: Atraumatic, normocephalic. EYES: Pupils equal round and reactive to light, extraocular movements intact, sclera anicteric, conjunctiva are normal. ENT:nares patent, oropharynx clear without exudates. Moist mucous membranes. NECK: Normal range of motion, supple without lymphadenopathy or JVD, no thyromegaly LUNGS: Breath sounds are labored, diminished bilaterally, scattered rhonchi throughout, no wheezes or stridor . HEART: Regular rate and rhythm without murmurs, rubs or gallops.S1S2 Normal ABDOMEN: Soft, nontender, normoactive bowel sounds. No guarding, no rebound. No masses appreciated. EXTREMITIES: Normal range of motion, no pitting or edema. No clubbing or cyanosis. NEUROLOGICAL: Cranial nerves II through XII grossly intact. Normal speech, normal gait. PSYCH: Normal mood, normal affect. SKIN: Warm, Dry, normal turgor, no rashes or lesions noted. No lower extremity edema. Results CBC & Chem 7: 07/17/20 10:03 07/17/20 10:03 Labs: Abnormal Lab Results - Last 24 Hours (Table) 07/17/20 07/17/20 07/17/20 Range/Units 10:03 10:03 10:03 WBC 21.6 H (3.8-10.6) k/uL Neutrophils # 16.9 H (1.3-7.7) k/uL Basophils # 0.3 H (0-0.2) k/uL D-Dimer 1.49 H (<0.60) mg/L FEU Carbon Dioxide 33 H (22-30) mmol/L BUN 27 H (9-20) mg/dL Creatinine 0.60 L (0.66-1.25) mg/dL Thrombosis Risk Factor Assmnt - DVT/VTE Prophylaxis DVT/VTE Prophylaxis: Pharmacologic Prophylaxis ordered, Mechanical Prophylaxis ordered - Choose All That Apply Any of the Below Risk Factors Present?: Yes Each Factor Represents 1 point: Abnormal pulmonary function (COPD), Serious lung disease incl. pneumonia (< 1month) Other Risk Factors: Yes Each Risk Factor Represents 2 Points: Age 61-74 years Thrombosis Risk Factor Assessment Total Risk Factor Score: 4 Thrombosis Risk Factor Assessment Level: Moderate Risk Assessment and Plan (1) Chest pain Current Visit: Yes Status: Acute Code(s): R07.9 - CHEST PAIN, UNSPECIFIED SNOMED Code(s): 85245053 (2) Leukocytosis Current Visit: Yes Status: Acute Code(s): D72.829 - ELEVATED WHITE BLOOD CELL COUNT, UNSPECIFIED SNOMED Code(s): 218356424 (3) Acute exacerbation of chronic obstructive airways disease Current Visit: No Status: Acute Code(s): J44.1 - CHRONIC OBSTRUCTIVE PULMONARY DISEASE W (ACUTE) EXACERBATION SNOMED Code(s): 521122833 (4) Community acquired pneumonia Current Visit: No Status: Acute Code(s): J18.9 - PNEUMONIA, UNSPECIFIED ORGANISM SNOMED Code(s): 234737344 (5) Dyspnea Current Visit: Yes Status: Acute Code(s): R06.00 - DYSPNEA, UNSPECIFIED SNOMED Code(s): 375726106 Plan: 1. We'll order echocardiogram. 2. We'll order daily azithromycin and Rocephin for leukocytosis. 3. We'll place on regular healthy her diet. 4. CBC and basic metabolic panel for tomorrow a.m. 5. We will order IV fluid bolus for gentle rehydration. 6. We will continue to monitor vitals and lab work and treat accordingly. 7. We'll reevaluate again tomorrow. Time with Patient: Greater than 30
[2020-07-17] MEDS: INSULIN ASPART (NovoLOG) 100 UNIT/ML VIAL SQ SCH ×2 (17:17→21:04)
[2020-07-17] MEDS: SODIUM CHLORIDE 0.9% 250 ML IV SCH ×5 (17:17→22:20)
[2020-07-17] MEDS: PANTOPRAZOLE 40 MG TABLET PO SCH (17:48)
[2020-07-17] MEDS: methylPREDNISolone SOD SUCCI 125 MG/2 ML VIAL IV SCH ×2 (17:48→23:22)
[2020-07-17] MEDS: HYDROcodone/APAP 5-325MG 1 EACH TAB PO PRN (17:48)
[2020-07-17] MEDS ORDERED: ATORVASTATIN 10 MG TAB PO SCH (21:00)
[2020-07-17] MEDS ORDERED: ASPIRIN 81 MG PO SCH (21:00)
[2020-07-17] MEDS: CYCLOBENZAPRINE 10 MG TAB PO SCH (21:09)
[2020-07-18] MEDS: INSULIN ASPART (NovoLOG) 100 UNIT/ML VIAL SQ SCH ×2 (06:43→12:28)
[2020-07-18] MEDS: methylPREDNISolone SOD SUCCI 125 MG/2 ML VIAL IV SCH ×2 (06:43→12:28)
[2020-07-18] MEDS: PANTOPRAZOLE 40 MG TABLET PO SCH (06:43)
[2020-07-18 07:47] LABS: Basophils % (A) 0 %; Eosinophils % (A) 0 %; HCT 41.9 % (39.0-53.0); HGB 13.7 gm/dL (13.0-17.5); Lymphocytes % (A) 7 %; MCH 32.8 pg (25.0-35.0); MCHC 32.8 g/dL (31.0-37.0); Mean Platelet Volume 7.9; Monocytes # (A) 0.1 k/uL (0-1.0); Monocytes % (A) 1 %; Neutrophils # (A) 12.8 k/uL (1.3-7.7); Neutrophils % (A) 91 %; Platelet Count 287 k/uL (150-450); RBC 4.19 m/uL (4.30-5.90); RDW 12.5 % (11.5-15.5)
[2020-07-18] MEDS ORDERED: SYMBICORT 80-4.5 MCG INHALER INHALATION SCH (08:00)
[2020-07-18 08:01] LABS: African American GFR (CKD) >90 (>60 ml/min/1.73 sqM); Anion Gap -1 mmol/L; Blood Urea Nitrogen 16 mg/dL (9-20); Calcium 8.7 mg/dL (8.4-10.2); Carbon Dioxide 37 mmol/L (22-30); Chloride 99 mmol/L (98-107); Glucose 115 mg/dL (74-99); Magnesium 1.8 mg/dL (1.6-2.3); Non-African American GFR(CKD) >90 (>60 ml/min/1.73 sqM); Potassium 4.3 mmol/L (3.5-5.1); Sodium 135 mmol/L (137-145)
[2020-07-18] MEDS: IPRATROPIUM 0.5 MG/2.5 ML NEBU INHALATION SCH ×2 (08:32→11:37)
[2020-07-18] MEDS: CYCLOBENZAPRINE 10 MG TAB PO SCH (08:56)
[2020-07-18] MEDS ORDERED: bisacodyL 5 MG TABLET.DR PO SCH (09:00)
[2020-07-18] MEDS ORDERED: NON FORMULARY DRUG (Vitamin B Complex [Vitamin B Complex] 1 EACH Capsule) PO SCH (09:00)
[2020-07-18] MEDS ORDERED: HYDROcodone/APAP 5-325MG 1 EACH TAB PO SCH (09:00)
[2020-07-18] MEDS ORDERED: MULTIVITAMINS, THERA 1 EACH TAB PO SCH (09:00)
[2020-07-18] MEDS ORDERED: atenoloL 25 MG TAB PO SCH (09:00)
[2020-07-18] MEDS ORDERED: LACTOBACILLUS ACIDOPH & BULGAR 1 EACH PACKET PO SCH (09:00)
[2020-07-18 09:50] VITALS: RESP 20; TEMP 97.9
--- NOTE | 2020-07-18 10:47 | P.CRDCN ---
History of Present Illness Consult date: 07/18/20 History of present illness: CHIEF COMPLAINT: Chest pain HISTORY OF PRESENT ILLNESS: This is a 74-year-old male with a past medical history significant for COPD with home oxygen use, hyperlipidemia, SVT, and coronary artery disease with previous stent to the RCA in 2008. Patient follows in the office with Dr. Scales. We have been asked to see the patient in consultation for chest pain. Patient states yesterday as he woke up and was trying to get out of bed he began having a dull pain in the middle of his chest. He states this went into his back. He also reports feeling a sharp pain under his left armpit. He denied any further shortness of breath beyond his baseline. Denies nausea or vomiting. Denies dizziness or lightheadedness. He reports taking 2 Tums which did not improve his symptoms. He then took 2 nitro which also did not help his symptoms. He states the pain is worse with movement. The pain was not reproducible with palpation or worse with deep inspiration. He reports the pain persisted throughout the day so he decided to come to the emergency room for further evaluation. DIAGNOSTICS: EKG reveals sinus mechanism without any evidence of acute ischemia Chest xray no dense consolidation. Chronic and emphysematous changes. Laboratory data: WBC 14.0. Hemoglobin 13.7. Platelet count 284. D-dimer 1.49. Sodium 135. Potassium 4.3. BUN 16. Creatinine 0.49. Magnesium 1.8. Troponins negative 3. Current home cardiac medications include Lipitor 10 mg daily, aspirin 81 mg daily, atenolol 25 mg daily Patient underwent cardiac cath and fiber 2020 revealing [id number] nonobstructive CAD. Echocardiogram completed at that time revealed ejection fraction 50-55%. REVIEW OF SYSTEMS: At the time of my exam: CONSTITUTIONAL: Denies fever or chills. HEENT: Denies blurred vision, vision changes, or eye pain. Denies hemoptysis CARDIOVASCULAR: Denies chest pain, orthopnea, PND or palpitations RESPIRATORY: No shortness of breath. GASTROINTESTINAL: Denies abdominal pain. Denies nausea or vomiting. HEMATOLOGIC: Denies bleeding disorders. GENITOURINARY: Denies any blood in urine. SKIN: Denies pruitis. Denies rash. PHYSICAL EXAM: VITAL SIGNS: Reviewed. GENERAL: Well-developed in no acute distress. HEENT: Head is normocephalic. Pupils are equal, round. Sclerae anicteric. Mucous membranes of the mouth are moist. Neck supple. No JVD or thyromegaly LUNGS: Respirations even and unlabored. Lungs essentially clear to auscultation bilaterally. HEART: Regular rate and rhythm. S1 and S2 heard. ABDOMEN: Soft. Nondistended. Nontender. EXTREMITIES: Normal range of motion. No clubbing or cyanosis. Peripheral pulses intact. No lower extremity edema NEUROLOGIC: Awake and alert. Oriented x 3. ASSESSMENT: 1. Chest pain, troponin negative x 3 2. COPD with home oxygen use 3. History of coronary artery disease with previous stenting to the RCA, most recent cardiac cath performed in August 2019 revealing mild to moderate nonobstructive CAD 4. History of SVT 5. Former nicotine dependence PLAN: An acute coronary event has been ruled out Resume home cardiac medications Patients chest pain has resolved Echo ordered. However, due to [place] holiday not able to be completed today. Patient is anxious to be discharged home and spend Azael with his family. Patient may be discharged home today from a cardiac perspective. He is to follow up outpatient with Dr. Scales Nurse practitioner note has been reviewed by physician. Signing provider agrees with the documented findings, assessment, and plan of care. 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, PT STATED HE HAS ENLARGED AORTA(PER CT SCAN -THORACIC AORTIC ANEURYSM 4.2 CM), "HOARSNESS", History of Any Multi-Drug Resistant Organisms: None Reported Past Surgical History: Adenoidectomy, Appendectomy, Heart Catheterization With Stent, Hernia Repair, Orthopedic Surgery, Tonsillectomy Additional Past Surgical History / Comment(s): LET ROTATOR CUFF REPAIR,ANAL FIS CLAY REPAIR, EGD/COLONOSCOPY,MULTIPLE BASAL CELL 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,AGUILAR INGUINAL HERNIA REPAIR.RIGHT SHOULDER SURGERY X2 Past Anesthesia/Blood Transfusion Reactions: No Reported Reaction Date of Last Stent Placement:: 2005 APPROX Past Psychological History: No Psychological Hx Reported Past Alcohol Use History: Occasional Past Drug Use History: None Reported - Past Family History Father Family Medical History: Cancer Additional Family Medical History / Comment(s): TESTICULAR, BONE Mother Family Medical History: Cancer Additional Family Medical History / Comment(s): BONE Medications and Allergies Home Medications Medication Instructions Recorded Confirmed Type Aspirin EC [Ecotrin Low Dose] 81 mg PO HS 07/21/16 07/17/20 History Fluticasone/Vilanterol [Breo 1 puff PO RT-DAILY 05/14/19 07/17/20 History Ellipta 100-25 Mcg Inhaler] Multivitamins, Thera [Multivitamin 1 tab PO DAILY 05/14/19 07/17/20 History (formulary)] Tiotropium Br/Olodaterol HCl 2 puff INHALATION RT-DAILY@1400 05/14/19 07/17/20 History [Stiolto Respimat Inhal [place]] Omeprazole 20 mg PO BID 06/13/19 07/17/20 History Vitamin B Complex 1 cap PO DAILY 06/13/19 07/17/20 History Cyclobenzaprine [Flexeril] 10 mg PO BID 08/30/19 07/17/20 History HYDROcodone/APAP 5-325MG [[place] 1 tab PO DAILY 11/07/19 07/17/20 History 5-325] Atorvastatin [Lipitor] 10 mg PO HS 07/17/20 07/17/20 History L.acidoph,Paracasei, B.lactis 1 cap PO DAILY 07/17/20 07/17/20 History [Probiotic] atenoloL [Atenolol] 25 mg PO DAILY 07/17/20 07/17/20 History bisacodyL [Dulcolax] 10 mg PO DAILY 07/17/20 07/17/20 History predniSONE See Taper PO DAILY@1400 07/17/20 07/17/20 History Allergies Allergy/AdvReac Type Severity Reaction Status Date / Time No Known Allergies Allergy Verified 07/17/20 13:51 Physical Exam Vitals: Vital Signs Temp Pulse Pulse Resp BP BP Pulse Ox 07/18/20 08:50 68 07/18/20 08:33 68 07/18/20 04:00 97.6 F 66 18 106/68 96 07/18/20 00:00 97.7 F 67 18 97/63 94 L 07/17/20 20:07 72 07/17/20 20:00 97.7 F 64 18 110/68 97 07/17/20 19:58 69 07/17/20 14:34 97.9 F 62 18 102/68 96 07/17/20 14:00 62 18 102/68 96 07/17/20 13:26 98 F 58 L 18 100/75 95 07/17/20 13:00 62 18 100/69 96 07/17/20 12:00 62 18 96 07/17/20 11:05 62 18 110/71 96 07/17/20 10:03 97.9 F 80 20 118/73 74 L Intake and Output 07/17/20 07/18/20 07/18/20 22:59 06:59 14:59 Intake Total 0 Output Total 450 Balance -450 0 Intake: Oral 0 Output: Urine 450 Other: # Voids 2 1 Weight 53.1 kg Results 07/18/20 07:07 07/18/20 07:07 Cardiac Enzymes 07/17/20 07/17/20 07/17/20 Range/Units 10:03 10:03 14:17 AST 45 (17-59) U/L Troponin I <0.012 <0.012 (0.000-0.034) ng/mL 07/17/20 Range/Units 16:32 AST (17-59) U/L Troponin I <0.012 (0.000-0.034) ng/mL Coagulation 07/17/20 Range/Units 10:03 PT 10.5 (9.0-12.0) sec APTT 22.9 (22.0-30.0) sec CBC 07/17/20 07/18/20 Range/Units 10:03 07:07 WBC 21.6 H 14.0 H (3.8-10.6) k/uL RBC 4.52 4.19 L (4.30-5.90) m/uL Hgb 14.9 13.7 (13.0-17.5) gm/dL Hct 45.1 41.9 (39.0-53.0) % Plt Count 360 287 (150-450) k/uL Comprehensive Metabolic Panel 07/17/20 07/18/20 Range/Units 10:03 07:07 Sodium 137 135 L (137-145) mmol/L Potassium 3.8 4.3 (3.5-5.1) mmol/L Chloride 100 99 (98-107) mmol/L Carbon Dioxide 33 H 37 H (22-30) mmol/L BUN 27 H 16 (9-20) mg/dL Creatinine 0.60 L 0.49 L (0.66-1.25) mg/dL Glucose 96 115 H (74-99) mg/dL Calcium 9.3 8.7 (8.4-10.2) mg/dL AST 45 (17-59) U/L ALT 48 (4-49) U/L Alkaline Phosphatase 104 (38-126) U/L Total Protein 7.1 (6.3-8.2) g/dL Albumin 3.8 (3.5-5.0) g/dL Current Medications Generic Name Dose Route Start Last Admin Trade Name Freq PRN Reason Stop Dose Admin Hydrocodone Bitart/Acetaminophen 1 each 07/17/20 17:41 07/17/20 17:48 Hydrocodone/Apap 5-325mg 1 Each Tab PO 1 each DAILY PRN Administration Mild to Moderate Pain Aspirin 81 mg 07/17/20 21:00 07/17/20 21:10 Aspirin 81 Mg PO 81 mg HS ARSH Administration Atenolol 25 mg 07/18/20 09:00 07/18/20 08:56 Atenolol 25 Mg Tab PO 25 mg DAILY ARSH Administration Atorvastatin Calcium 10 mg 07/17/20 21:00 07/17/20 21:09 Atorvastatin 10 Mg Tab PO 10 mg HS ARSH Administration Azithromycin 500 mg 07/18/20 16:00 Azithromycin 500 Mg Tab PO Q24H ARSH Bisacodyl 10 mg 07/18/20 09:00 07/18/20 08:55 Bisacodyl 5 Mg Tablet.Dr PO 10 mg DAILY ARSH Administration Budesonide/Formoterol Fumarate 2 puff 07/18/20 08:00 07/18/20 08:32 Symbicort 80-4.5 Mcg Inhaler INHALATION 2 puff RT-BID ARSH Administration Cyclobenzaprine HCl 10 mg 07/17/20 21:00 07/18/20 08:56 Cyclobenzaprine 10 Mg Tab PO 10 mg BID ARSH Administration Ceftriaxone Sodium 1 gm/ 50 mls @ 100 mls/hr 07/18/20 14:00 Sodium Chloride IVPB Q24H ARSH Insulin Aspart 0 unit 07/17/20 17:30 07/18/20 06:43 Insulin Aspart (Novolog) 100 Unit/Ml Vial SQ 1 unit ACHS ARSH Administration Protocol Ipratropium [place] 0.5 mg 07/17/20 16:00 07/18/20 08:32 Ipratropium 0.5 Mg/2.5 Ml Nebu INHALATION 0.5 mg RT-QID ARSH Administration Lactobacillus Acidoph/[place] 1 each 07/18/20 09:00 07/18/20 08:56 Lactobacillus Acidoph & [place] 1 Each Packet PO 1 each DAILY ARSH Administration Methylprednisolone Sodium Succinate 60 mg 07/17/20 18:00 07/18/20 06:43 Methylprednisolone Sod Succi 125 Mg/2 Ml Vial IV 60 mg Q6HR ARSH Administration Multivitamins 1 each 07/18/20 09:00 07/18/20 08:56 Multivitamins, Thera 1 Each Tab PO 1 each DAILY ARSH Administration Naloxone HCl 0.2 mg 07/17/20 12:02 Naloxone 0.4 Mg/Ml 1 Ml Vial IV Q2M PRN Opioid Reversal Pantoprazole Sodium 40 mg 07/17/20 17:30 07/18/20 06:43 Pantoprazole 40 Mg Tablet PO 40 mg AC-BID ARSH Administration Intake and Output 07/17/20 07/18/20 07/18/20 22:59 06:59 14:59 Intake Total 0 Output Total 450 Balance -450 0 Intake: Oral 0 Output: Urine 450 Other: # Voids 2 1 Weight 53.1 kg 07/18/20 07:07 07/18/20 07:07
[2020-07-18 12:56] VITALS: BMI 16.7
--- NOTE | 2020-07-18 13:21 | P.DS ---
Providers Date of admission: 07/17/20 13:00 Expected date of discharge: 07/18/20 Attending physician: Fritz Ibarra Consults: 07/17/20 12:02 Consult Physician Routine Consulting Provider: Magaly Scales Consult Reason/Comments: established patient, chest pain Do you want consulting provider notified?: Yes Primary care physician: Brendan Chan - Discharge Diagnosis(es) (1) Chest pain Current Visit: Yes Status: Acute (2) Dyspnea Current Visit: Yes Status: Acute (3) Leukocytosis Current Visit: Yes Status: Acute (4) Abnormal TSH Current Visit: No Status: Acute (5) Acute exacerbation of chronic obstructive airways disease Current Visit: No Status: Acute (6) Atrial fibrillation Current Visit: No Status: Acute Assessment: General: [Patient awake, alert and oriented times 3. Patient in no acute distress.] HEENT: [PERRL. EOMI. No pharyngeal erythema or exudate.] Neck: [No adenopathy.] Cardiac: [Heart regular in rate and rhythm. No S3. No S4. No clicks, rubs. No murmur.] Lungs: Diminished breath sounds bilaterally with fine crackles Abdomen: [No mass. No organomegaly. Bowel sounds presnt and normoactive in all 4 quadrants.] Extremes: [No edema no cyanosis no claudication normal pulses] : Normal male genitalia Musculoskeletal: [No joint erythema, edema or tenderness.] Skin: [No rash.] Neurologic: [No lateralizing deficits. CN II - XII grossly intact.] Lymphatic: [No adenopathy.] Cardiology consult was instituted patient's cardiac enzymes were slightly elevated suspect pulmonary source Director [employer] to determine patient is not in acute cardiac crisis Will discharge patient home on Zithromax Patient Condition at Discharge: Stable Plan - Discharge Summary Discharge Rx Participant: No New Discharge Prescriptions: New Cyclobenzaprine [Flexeril] 5 mg PO TID 30 Days #90 tablet Hydrocodone/Acetaminophen [[place] 10-325] 1 tab PO Q4-6H PRN 30 Days #120 tab PRN Reason: Pain No Action Aspirin EC [Ecotrin Low Dose] 81 mg PO HS Tiotropium Br/Olodaterol HCl [Stiolto Respimat Inhal [place]] 2 puff INHALATION RT-DAILY@1400 Fluticasone/Vilanterol [Breo Ellipta 100-25 Mcg Inhaler] 1 puff PO RT-DAILY Multivitamins, Thera [Multivitamin (formulary)] 1 tab PO DAILY Omeprazole 20 mg PO BID Vitamin B Complex 1 cap PO DAILY Cyclobenzaprine [Flexeril] 10 mg PO BID HYDROcodone/APAP 5-325MG [[place] 5-325] 1 tab PO DAILY Atorvastatin [Lipitor] 10 mg PO HS predniSONE See Taper PO DAILY@1400 bisacodyL [Dulcolax] 10 mg PO DAILY L.acidoph,Paracasei, B.lactis [Probiotic] 1 cap PO DAILY atenoloL [Atenolol] 25 mg PO DAILY Discharge Medication List Aspirin EC [Ecotrin Low Dose] 81 mg PO HS 07/21/16 [History] Fluticasone/Vilanterol [Breo Ellipta 100-25 Mcg Inhaler] 1 puff PO RT-DAILY 05/14/19 [History] Multivitamins, Thera [Multivitamin (formulary)] 1 tab PO DAILY 05/14/19 [History] Tiotropium Br/Olodaterol HCl [Stiolto Respimat Inhal [place]] 2 puff INHALATION RT-DAILY@1400 05/14/19 [History] Omeprazole 20 mg PO BID 06/13/19 [History] Vitamin B Complex 1 cap PO DAILY 06/13/19 [History] Cyclobenzaprine [Flexeril] 10 mg PO BID 08/30/19 [History] HYDROcodone/APAP 5-325MG [[place] 5-325] 1 tab PO DAILY 11/07/19 [History] Atorvastatin [Lipitor] 10 mg PO HS 07/17/20 [History] L.acidoph,Paracasei, B.lactis [Probiotic] 1 cap PO DAILY 07/17/20 [History] atenoloL [Atenolol] 25 mg PO DAILY 07/17/20 [History] bisacodyL [Dulcolax] 10 mg PO DAILY 07/17/20 [History] predniSONE See Taper PO DAILY@1400 07/17/20 [History] Cyclobenzaprine [Flexeril] 5 mg PO TID 30 Days #90 tablet 07/18/20 [Rx] Hydrocodone/Acetaminophen [[place] 10-325] 1 tab PO Q4-6H PRN 30 Days #120 tab 07/18/20 [Rx] Follow up Appointment(s)/Referral(s): Magaly Scales MD [STAFF PHYSICIAN] - 1 Week Brendan Chan MD [Primary Care Provider] - 1-2 days
[2020-07-18 13:29] VITALS: BP 105/66; PULSE 70
[2020-07-18] MEDS: HYDROcodone/APAP 5-325MG 1 EACH TAB PO PRN (14:11)
[2020-07-18] MEDS ORDERED: AZITHROMYCIN 500 MG TAB PO SCH (16:00)
[2020-07-24 05:29] LABS: Glucose,Whole Blood 136 mg/dL (75-99)
[2020-07-24 05:29] LABS: Glucose,Whole Blood 183 mg/dL (75-99)
[2020-07-24 05:46] LABS: Glucose,Whole Blood 117 mg/dL (75-99)
[2020-07-24 05:46] LABS: Glucose,Whole Blood 125 mg/dL (75-99)
== END 2020-07-18 14:27 | disposition home or self-care (01) | DRG 313 ==
LOC: EC 09:47 → 3SCARD 13:00
PROVIDERS: ADMIT Family Medicine; ATTEND Family Medicine
DX: R07.9 Chest pain, unspecified (principal); J44.1 Chronic obstructive pulmonary disease with (acute) exacerbation; J98.11 Atelectasis; I47.1 Supraventricular tachycardia; I25.10 Atherosclerotic heart disease of native coronary artery without angina pectoris; Z99.81 Dependence on supplemental oxygen; I71.2 Thoracic aortic aneurysm, without rupture; I48.91 Unspecified atrial fibrillation; E78.5 Hyperlipidemia, unspecified; I10 Essential (primary) hypertension; M19.90 Unspecified osteoarthritis, unspecified site; R94.6 Abnormal results of thyroid function studies; D72.829 Elevated white blood cell count, unspecified; Z79.82 Long term (current) use of aspirin; Z79.899 Other long term (current) drug therapy; Z79.52 Long term (current) use of systemic steroids; Z95.5 Presence of coronary angioplasty implant and graft; Z85.828 Personal history of other malignant neoplasm of skin; Z87.891 Personal history of nicotine dependence; Z87.01 Personal history of pneumonia (recurrent); Z87.19 Personal history of other diseases of the digestive system; Z90.49 Acquired absence of other specified parts of digestive tract; Z90.89 Acquired absence of other organs; Z80.43 Family history of malignant neoplasm of testis; Z80.8 Family history of malignant neoplasm of other organs or systems
CPT/HCPCS: 36415; 71046; 71275; 80048; 80053; 83735; 84484; 85025; 85379; 85610; 85730; 87040; 93005; 94640; 96361; 96374; 99285

== ENCOUNTER 2020-11-10 07:34 | Inpatient (IN) | payer MEDICARE ==
[2020-11-10] MEDS ORDERED: SODIUM CHLORIDE 0.9% 500 ML 500 ML IV ONE ×2 (07:38→08:18)
[2020-11-10] MEDS ORDERED: methylPREDNISolone SOD SUCCI 125 MG/2 ML VIAL IV STA (07:38)
--- NOTE | 2020-11-10 07:50 | ED ---
General Adult HPI - General Stated complaint: SOB, cough Time Seen by Provider: 11/10/20 07:36 Source: patient, EMS, RN notes reviewed, old records reviewed Mode of arrival: EMS Limitations: altered mental status - History of Present Illness Initial comments: 35-year-old male presenting in respiratory distress. History is limited. Patient had been noted by EMS to be hypotensive, tachycardic to Neck and hypoxic. Apparently the patient has been sick for approximately 2 weeks with productive cough. He had received his second coronavirus vaccine about 2 weeks ago. This history is obtained from EMS. The patient is able to answer some simple questions but is in respiratory distress. History of both CAD and COPD no reported fever. Patient has not been eating or drinking well. No central chest pain. - Related Data Home Medications Medication Instructions Recorded Confirmed Aspirin EC [Ecotrin Low Dose] 81 mg PO HS 07/21/16 11/10/20 Tiotropium Br/Olodaterol HCl 2 puff INHALATION RT-DAILY 05/14/19 11/10/20 [Stiolto Respimat Inhal [place]] Omeprazole 20 mg PO BID 06/13/19 11/10/20 Vitamin B Complex 1 cap PO DAILY 06/13/19 11/10/20 Cyclobenzaprine [Flexeril] 10 mg PO TID PRN 08/30/19 11/10/20 Atorvastatin [Lipitor] 10 mg PO HS 07/17/20 11/10/20 L.acidoph,Paracasei, B.lactis 1 cap PO DAILY 07/17/20 11/10/20 [Probiotic] atenoloL [Atenolol] 25 mg PO Q48H 07/17/20 11/10/20 predniSONE 20 mg PO DAILY 07/17/20 11/10/20 Fluticasone/Vilanterol [Breo 1 puff INHALATION RT-DAILY 11/10/20 11/10/20 Ellipta 200-25 Mcg INH] Hydrocodone/Acetaminophen [[place] 1 tab PO Q6H PRN 11/10/20 11/10/20 10-325] Multivit-Min/FA/Lycopen/Lutein 1 tab PO DAILY 11/10/20 11/10/20 [Centrum Silver Men Tablet] Allergies Allergy/AdvReac Type Severity Reaction Status Date / Time No Known Allergies Allergy Verified 11/10/20 08:55 Review of Systems ROS Statement: Those systems with pertinent positive or pertinent negative responses have been documented in the HPI. ROS Other: All systems not noted in ROS Statement are negative. 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, PT STATED HE HAS ENLARGED AORTA(PER CT SCAN -THORACIC AORTIC ANEURYSM 4.2 CM), "HOARSNESS", History of Any Multi-Drug Resistant Organisms: None Reported Past Surgical History: Adenoidectomy, Appendectomy, Heart Catheterization With Stent, Hernia Repair, Orthopedic Surgery, Tonsillectomy Additional Past Surgical History / Comment(s): LET ROTATOR CUFF REPAIR,ANAL FISTULA REPAIR, EGD/COLONOSCOPY,MULTIPLE BASAL CELL 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,AGUILAR INGUINAL HERNIA REPAIR.RIGHT SHOULDER SURGERY X2 Past Anesthesia/Blood Transfusion Reactions: No Reported Reaction Date of Last Stent Placement:: 2005 Past Psychological History: No Psychological Hx Reported Past Alcohol Use History: Occasional Past Drug Use History: None Reported - Past Family History Father Family Medical History: Cancer Additional Family Medical History / Comment(s): TESTICULAR, BONE Mother Family Medical History: Cancer Additional Family Medical History / Comment(s): BONE General Exam Limitations: no limitations General appearance: lethargic, in distress Head exam: Present: atraumatic, normocephalic Eye exam: Present: normal appearance, PERRL ENT exam: Present: mucous membranes dry Respiratory exam: Present: respiratory distress, wheezes, rhonchi, accessory muscle use, decreased breath sounds Cardiovascular Exam: Present: normal rhythm, tachycardia GI/Abdominal exam: Present: soft. Absent: distended, tenderness, guarding Extremities exam: Present: normal inspection, normal capillary refill. Absent: pedal edema, calf tenderness Neurological exam: Present: alert, oriented X3, CN II-XII intact. Absent: motor sensory deficit Psychiatric exam: Present: normal affect, normal mood Skin exam: Present: warm, dry, intact. Absent: cyanosis, diaphoretic Course Vital Signs 11/10/20 11/10/20 11/10/20 07:35 07:40 07:56 Temperature 99.1 F 100.2 F H Pulse Rate 112 H Respiratory 25 H 21 Rate Blood Pressure 105/71 O2 Sat by Pulse 95 Oximetry 11/10/20 11/10/20 11/10/20 08:42 08:57 09:51 Temperature Pulse Rate 93 93 Respiratory 16 16 Rate Blood Pressure 96/70 85/58 O2 Sat by Pulse 97 97 97 Oximetry 11/10/20 11/10/20 10:13 11:14 Temperature 98.3 F Pulse Rate 89 Respiratory 18 Rate Blood Pressure 91/66 O2 Sat by Pulse 99 Oximetry - Reevaluation(s) Reevaluation #1: 11/10/20 11:32 admitted to the ICU. EKG Findings - EKG Comments: EKG Findings:: EKG: Sinus tachycardia pulmonary disease pattern, rate of 117, CA interval 136, QRS duration 68, QTC 418. No ST segment elevation. Medical Decision Making - Medical Decision Making 75-year-old male presenting with respiratory distress. Patient is hypotensive by EMS, hypoxic, tachycardic. Chest x-ray showing a large consolidated pneumonia right lung. He has a significant leukocytosis of 45. Additionally he has a positive d-dimer 32 which is evaluated with CT angiography which is negative for PE, showing consolidation. He has a lactic acid of 2.8. He has significant laboratory abnormalities including elevated LDH, elevated CRP, elevated troponin. I did start this patient on cefepime, azithromycin, vancomycin. I discussed case both with the admitting physician Dr. Ibarra and the pulmonary brake lining maker Dr. Arechiga. Patient will be continued on IV antibiotics, IV fluid. Currently blood pressure is improved patient is alert with moderate respiratory distress. - Lab Data Result diagrams: 11/10/20 07:43 11/10/20 07:43 Lab Results 11/10/20 11/10/20 11/10/20 Range/Units 07:40 07:43 07:43 WBC 45.2 H (3.8-10.6) k/uL RBC 4.00 L (4.30-5.90) m/uL Hgb 13.1 (13.0-17.5) gm/dL Hct 39.5 (39.0-53.0) % MCV 98.8 (80.0-100.0) fL MCH 32.7 (25.0-35.0) pg MCHC 33.1 (31.0-37.0) g/dL RDW 12.7 (11.5-15.5) % Plt Count 286 (150-450) k/uL MPV 9.8 Neutrophils % (Manual) 89 % Band Neuts % (Manual) 6 % Lymphocytes % (Manual) 3 % Monocytes % (Manual) 2 % Metamyelocytes % 1 % Neutrophils # (Manual) 42.90 H (1.3-7.7) k/uL Lymphocytes # (Manual) 1.36 (1.0-4.8) k/uL Monocytes # (Manual) 0.90 (0-1.0) k/uL Metamyelocytes # (Man) 0.45 H (0) k/uL Nucleated RBCs 0 (0-0) /100 WBC Manual Slide Review Performed Toxic Granulation Present Hypochromasia Slight PT 14.0 H (9.0-12.0) sec INR 1.4 H (<1.2) APTT 24.6 (22.0-30.0) sec D-Dimer 32.67 H (<0.60) mg/L FEU Sample Site ABG pH (7.35-7.45) ABG pCO2 (35-45) mmHg ABG pO2 (83-108) mmHg ABG HCO3 (21-25) mmol/L ABG Total CO2 (19-24) mmol/L ABG O2 Saturation (94-97) % ABG Base Excess mmol/L Ld Test FiO2 % Sodium (137-145) mmol/L Potassium (3.5-5.1) mmol/L Chloride (98-107) mmol/L Carbon Dioxide (22-30) mmol/L Anion Gap mmol/L BUN (9-20) mg/dL Creatinine (0.66-1.25) mg/dL Est GFR (CKD-EPI)AfAm (>60 ml/min/1.73 sqM) Est GFR (CKD-EPI)NonAf (>60 ml/min/1.73 sqM) Glucose (74-99) mg/dL POC Glucose (mg/dL) (75-99) mg/dL POC Glu [employer] ID Plasma Lactic Acid Rich (0.7-2.0) mmol/L Calcium (8.4-10.2) mg/dL Magnesium (1.6-2.3) mg/dL Total Bilirubin (0.2-1.3) mg/dL AST (17-59) U/L ALT (4-49) U/L Alkaline Phosphatase (38-126) U/L Lactate Dehydrogenase (313-618) U/L Troponin I (0.000-0.034) ng/mL C-Reactive Protein (<1.0) mg/dL NT-Pro-B Natriuret Pep pg/mL Total Protein (6.3-8.2) g/dL Albumin (3.5-5.0) g/dL Coronavirus (PCR) Not Detected (Not Detectd) 11/10/20 11/10/20 11/10/20 Range/Units 07:43 07:43 07:43 WBC (3.8-10.6) k/uL RBC (4.30-5.90) m/uL Hgb (13.0-17.5) gm/dL Hct (39.0-53.0) % MCV (80.0-100.0) fL MCH (25.0-35.0) pg MCHC (31.0-37.0) g/dL RDW (11.5-15.5) % Plt Count (150-450) k/uL MPV Neutrophils % (Manual) % Band Neuts % (Manual) % Lymphocytes % (Manual) % Monocytes % (Manual) % Metamyelocytes % % Neutrophils # (Manual) (1.3-7.7) k/uL Lymphocytes # (Manual) (1.0-4.8) k/uL Monocytes # (Manual) (0-1.0) k/uL Metamyelocytes # (Man) (0) k/uL Nucleated RBCs (0-0) /100 WBC Manual Slide Review Toxic Granulation Hypochromasia PT (9.0-12.0) sec INR (<1.2) APTT (22.0-30.0) sec D-Dimer (<0.60) mg/L FEU Sample Site ABG pH (7.35-7.45) ABG pCO2 (35-45) mmHg ABG pO2 (83-108) mmHg ABG HCO3 (21-25) mmol/L ABG Total CO2 (19-24) mmol/L ABG O2 Saturation (94-97) % ABG Base Excess mmol/L Ld Test FiO2 % Sodium 139 (137-145) mmol/L Potassium 4.7 (3.5-5.1) mmol/L Chloride 98 (98-107) mmol/L Carbon Dioxide 30 (22-30) mmol/L Anion Gap 11 mmol/L BUN 41 H (9-20) mg/dL Creatinine 1.12 (0.66-1.25) mg/dL Est GFR (CKD-EPI)AfAm 75 (>60 ml/min/1.73 sqM) Est GFR (CKD-EPI)NonAf 65 (>60 ml/min/1.73 sqM) Glucose 42 L* (74-99) mg/dL POC Glucose (mg/dL) (75-99) mg/dL POC Glu [employer] ID Plasma Lactic Acid Rich 2.8 H* (0.7-2.0) mmol/L Calcium 8.3 L (8.4-10.2) mg/dL Magnesium 2.0 (1.6-2.3) mg/dL Total Bilirubin 0.7 (0.2-1.3) mg/dL AST 140 H (17-59) U/L ALT 48 (4-49) U/L Alkaline Phosphatase 217 H (38-126) U/L Lactate Dehydrogenase 1990 H (313-618) U/L Troponin I 0.126 H* (0.000-0.034) ng/mL C-Reactive Protein 40.8 H (<1.0) mg/dL NT-Pro-B Natriuret Pep pg/mL Total Protein 6.0 L (6.3-8.2) g/dL Albumin 2.8 L (3.5-5.0) g/dL Coronavirus (PCR) (Not Detectd) 11/10/20 11/10/20 11/10/20 Range/Units 07:43 10:49 11:17 WBC (3.8-10.6) k/uL RBC (4.30-5.90) m/uL Hgb (13.0-17.5) gm/dL Hct (39.0-53.0) % MCV (80.0-100.0) fL MCH (25.0-35.0) pg MCHC (31.0-37.0) g/dL RDW (11.5-15.5) % Plt Count (150-450) k/uL MPV Neutrophils % (Manual) % Band Neuts % (Manual) % Lymphocytes % (Manual) % Monocytes % (Manual) % Metamyelocytes % % Neutrophils # (Manual) (1.3-7.7) k/uL Lymphocytes # (Manual) (1.0-4.8) k/uL Monocytes # (Manual) (0-1.0) k/uL Metamyelocytes # (Man) (0) k/uL Nucleated RBCs (0-0) /100 WBC Manual Slide Review Toxic Granulation Hypochromasia PT (9.0-12.0) sec INR (<1.2) APTT (22.0-30.0) sec D-Dimer (<0.60) mg/L FEU Sample Site rrad ABG pH 7.40 (7.35-7.45) ABG pCO2 45 (35-45) mmHg ABG pO2 122 H (83-108) mmHg ABG HCO3 28 H (21-25) mmol/L ABG Total CO2 29 H (19-24) mmol/L ABG O2 Saturation 98.3 H (94-97) % ABG Base Excess 3.1 mmol/L Ld Test Yes FiO2 100 % Sodium (137-145) mmol/L Potassium (3.5-5.1) mmol/L Chloride (98-107) mmol/L Carbon Dioxide (22-30) mmol/L Anion Gap mmol/L BUN (9-20) mg/dL Creatinine (0.66-1.25) mg/dL Est GFR (CKD-EPI)AfAm (>60 ml/min/1.73 sqM) Est GFR (CKD-EPI)NonAf (>60 ml/min/1.73 sqM) Glucose (74-99) mg/dL POC Glucose (mg/dL) 127 H (75-99) mg/dL POC Glu [employer] Operator ID Virginie Menon Plasma Lactic Acid Rich (0.7-2.0) mmol/L Calcium (8.4-10.2) mg/dL Magnesium (1.6-2.3) mg/dL Total Bilirubin (0.2-1.3) mg/dL AST (17-59) U/L ALT (4-49) U/L Alkaline Phosphatase (38-126) U/L Lactate Dehydrogenase (313-618) U/L Troponin I (0.000-0.034) ng/mL C-Reactive Protein (<1.0) mg/dL NT-Pro-B Natriuret Pep 3130 pg/mL Total Protein (6.3-8.2) g/dL Albumin (3.5-5.0) g/dL Coronavirus (PCR) (Not Detectd) Critical Care Time Critical Care Time: Yes Total Critical Care Time: 35 Disposition Clinical Impression: Leukocytosis, Sepsis due to pneumonia Disposition: ADMITTED IP TO THIS [facility] Condition: Serious Is patient prescribed a controlled substance at d/c from ED?: No Referrals: Brendan Chan MD [Primary Care Provider] - 1-2 days Decision to Admit Reason: Admit from EC Decision Date: 11/10/20 Decision Time: 11:32
[2020-11-10] MEDS ORDERED: CEFEPIME 2 GM in SODIUM CHLORIDE 0.9% 100 ML IVPB STA (08:17)
--- NOTE | 2020-11-10 08:19 | XR ---
EXAMINATION TYPE: XR chest 1V portable DATE OF EXAM: 11/10/2020 COMPARISON: Chest x-ray and CT 07/17/2020 HISTORY: Difficulty breathing, Covid 19 pneumonia suspected TECHNIQUE: Single frontal view of the chest is obtained. FINDINGS: Prominent lung volumes are consistent with underlying COPD, there is extensive emphysema. No evident pneumothorax. Bilateral patchy airspace disease is present greater on the right. Prominenc e the pulmonary artery consistent with underlying pulmonary artery hypertension. Cardiac mediastinal silhouette is stable, the aorta is dense and ectatic. IMPRESSION: Correlate for pneumonia, follow-up recommended, additional findings above
[2020-11-10] MEDS: SODIUM CHLORIDE 0.9% 1,000 ML IV SCH ×2 (08:33→17:46)
[2020-11-10 09:09] LABS: HCT 39.5 % (39.0-53.0); HGB 13.1 gm/dL (13.0-17.5); Hypochromasia Slight; MCH 32.7 pg (25.0-35.0); MCHC 33.1 g/dL (31.0-37.0); MCV 98.8 fL (80.0-100.0); Mean Platelet Volume 9.8; Platelet Count 286 k/uL (150-450); RDW 12.7 % (11.5-15.5); WBC 45.2 k/uL (3.8-10.6)
[2020-11-10 09:21] LABS: Albumin 2.8 g/dL (3.5-5.0); Calcium 8.3 mg/dL (8.4-10.2); Potassium 4.7 mmol/L (3.5-5.1); Total Bilirubin 0.7 mg/dL (0.2-1.3)
[2020-11-10] MEDS ORDERED: AZITHROMYCIN 500 MG in SODIUM CHLORIDE 0.9% 250 ML IVPB STA (09:25)
[2020-11-10 09:35] LABS: Band Neutrophils % 6 %; Lymphocytes # (M) 1.36 k/uL (1.0-4.8); Metamyelocytes # (M) 0.45 k/uL (0); Metamyelocytes % 1 %; Neutrophils % (M) 89 %; Nucleated Red Blood Cells 0 /100 WBC (0-0); Total Cells Counted 200
[2020-11-10 09:36] LABS: Toxic Granulation Present
[2020-11-10 09:38] LABS: INR 1.4 (<1.2); Partial Thromboplastin Time 24.6 sec (22.0-30.0)
[2020-11-10 09:40] LABS: D-Dimer 32.67 mg/L FEU (<0.60)
[2020-11-10] MEDS ORDERED: DEXTROSE 50% SYRINGE 50 ML IVP STA (09:47)
[2020-11-10 09:55] LABS: C Reactive Protein 40.8 mg/dL (<1.0)
[2020-11-10] MEDS ORDERED: VANCOMYCIN IV PER PHARMACY 1 EACH MISC MISCELLANE PRN (10:24)
[2020-11-10] MEDS ORDERED: VANCOMYCIN 1,000 MG in SODIUM CHLORIDE 0.9% 250 ML IVPB STA (10:30)
[2020-11-10 10:53] LABS: ABG Base Excess 3.1 mmol/L; ABG HCO3 28 mmol/L (21-25); ABG Oxygen Saturation 98.3 % (94-97); ABG PCO2 45 mmHg (35-45); ABG PO2 122 mmHg (83-108); ABG TCO2 29 mmol/L (19-24); Allen Test Performed? Yes
--- NOTE | 2020-11-10 11:12 | CT ---
EXAMINATION TYPE: CT angio chest DATE OF EXAM: 11/10/2020 10:42 AM COMPARISON: CTA chest November 07, 2019. HISTORY: Worsening shortness of breath CT DLP: 279.5 mGycm Automated exposure control for dose reduction was used. CONTRAST: CTA scan of the thorax is performed with IV Contrast, patient injected with 88 mL of Isovue 370, pulm onary embolism protocol. MIP images are created and reviewed. FINDINGS: LUNGS: Advanced underlying emphysematous changes are redemonstrated. The right lower lobe shows inter jazmine progression in extensive masslike consolidation. There is posterior complex pleural fluid collect ion that has horizontal interface particularly in the upper lung represents image 60 which is increas ed in size from prior study. No definitive air component or pneumothorax noted. Horizontal appearance raises concern for loculation. Left lung base shows persistent stable dependent atelectasis and/or c onsolidation. MEDIASTINUM: There is satisfactory enhancement of the pulmonary artery and its branches, there is no CT evidence for new acute pulmonary embolism. There are no greater than 1 cm hilar or mediastinal ly mph nodes. No cardiomegaly or pericardial effusion is seen. Coronary artery calcification and/or st ents are present OTHER: Exaggerated thoracic kyphosis. Multilevel chronic compression type fractures throughout the t horacolumbar spine with moderate to severe findings at the labeled L1 level redemonstrated. Some opac ification of the aorta. There is a dissection beginning in the distal thoracic aorta just above the d iaphragm extending along course of entire visualized portion of abdominal aorta. There is significant narrowing of the axilla may shortly after its origin sagittal image 89 for reference. There is 4 mm nonobstructing stone mid to lower pole of the right kidney axial image 174. IMPRESSION: 1. No CT evidence for acute pulmonary embolism. 2. Background of advanced emphysematous change with worsening masslike consolidation in the right low er lobe. There is a small complex loculated posterior right pleural fluid collection. 3. There is partial visualization of type B [place] or [place] type III abdominal aortic dissection.
[2020-11-10 11:19] LABS: Glucose,Whole Blood 127 mg/dL (75-99)
[2020-11-10] MEDS ORDERED: NALOXONE 0.4 MG/ML 1 ML VIAL IV PRN (11:28)
[2020-11-10] MEDS ORDERED: IPRATROPIUM-ALBUTEROL 3 ML NEB INHALATION PRN (13:20)
--- NOTE | 2020-11-10 13:20 | P.CNPUL ---
History of Present Illness Consult date: 11/10/20 Requesting physician: Brendan Chan Reason for consult: dyspnea, cough, hypoxemia, pneumonia, abnormal CXR/CT Chief complaint: Shortness of breath. History of present illness: Pulmonary consult dated 11/10/2020. 75-year-old male, who presents to the emergency department, on November 10, in the morning, complaining of respiratory distress, cough, shortness of breath, and difficulty breathing. The patient is not a particularly good historian. Apparently the patient has been sick for at least 10 days and may be a bit longer. He admits to cough, chest congestion, and phlegm production. The patient has received full coronavirus vaccination. He apparently the patient has a history of both CAD, and COPD. There is no fever or chills. He denies chest pain or chest discomfort. His appetite has been poor. His chest x-ray shows a substantial infiltrate in the right lower lobe, and on computed tomography scan, there was no pulmonary embolism, but there was pneumonia, and possibly a parapneumonic effusion. The patient's history includes CAD, pneumonia, COPD, angina, skin cancer, and thoracic aortic aneurysm, 4.2 cm in size. The patient is also had a cardiac catheterization with stent. Lab data includes a white count of 45.2, hemoglobin 13.1, hematocrit 39.5, platelet count 286,000. PT was 14, INR 1.4, PTT 24.6, and d-dimer was 32.67. Blood gases show a PaO2 of 122, pCO2 45, pH is 7.4. Sodium 139, potassium 4.7, chlorides 98, CO2 30, anion gap 11, BUN 41, creatinine 1.12, glucose 42, lactic acid 2.8, repeat 1.1, LDH 1990, C-reactive protein 40.8, troponin 0.126, and coronavirus testing, was negative. N-terminal proBNP was 3130. Chest x-ray and CAT scan of both reviewed. Review of Systems REVIEW OF SYSTEMS: CONSTITUTIONAL: Weakness, poor appetite. NEUROLOGIC: [ Negative.] HEENT: [ Negative.] CARDIAC: [Negative.] PULMONARY: Shortness of breath, cough, phlegm production, chest congestion. GI: Decreased oral intake. : [Negative.] RHEUMATOLOGIC: [ Negative.] IMMUNOLOGIC: [ Negative.] ENDOCRINE: [Negative. 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, PT STATED HE HAS ENLARGED AORTA(PER CT SCAN -THORACIC AORTIC ANEURYSM 4.2 CM), "HOARSNESS", History of Any Multi-Drug Resistant Organisms: None Reported Past Surgical History: Adenoidectomy, Appendectomy, Heart Catheterization With Stent, Hernia Repair, Orthopedic Surgery, Tonsillectomy Additional Past Surgical History / Comment(s): LET ROTATOR CUFF REPAIR,ANAL FISTULA REPAIR, EGD/COLONOSCOPY,MULTIPLE BASAL CELL 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,AGUILAR INGUINAL HERNIA REPAIR.RIGHT SHOULDER SURGERY X2 Past Anesthesia/Blood Transfusion Reactions: No Reported Reaction Date of Last Stent Placement:: 2005 Past Psychological History: No Psychological Hx Reported Past Alcohol Use History: Occasional Past Drug Use History: None Reported - Past Family History Father Family Medical History: Cancer Additional Family Medical History / Comment(s): TESTICULAR, BONE Mother Family Medical History: Cancer Additional Family Medical History / Comment(s): BONE Medications and Allergies Home Medications Medication Instructions Recorded Confirmed Type Aspirin EC [Ecotrin Low Dose] 81 mg PO HS 07/21/16 11/10/20 History Tiotropium Br/Olodaterol HCl 2 puff INHALATION RT-DAILY 05/14/19 11/10/20 History [Stiolto Respimat Inhal [place]] Omeprazole 20 mg PO BID 06/13/19 11/10/20 History Vitamin B Complex 1 cap PO DAILY 06/13/19 11/10/20 History Cyclobenzaprine [Flexeril] 10 mg PO TID PRN 08/30/19 11/10/20 History Atorvastatin [Lipitor] 10 mg PO HS 07/17/20 11/10/20 History L.acidoph,Paracasei, B.lactis 1 cap PO DAILY 07/17/20 11/10/20 History [Probiotic] atenoloL [Atenolol] 25 mg PO Q48H 07/17/20 11/10/20 History predniSONE 20 mg PO DAILY 07/17/20 11/10/20 History Fluticasone/Vilanterol [Breo 1 puff INHALATION RT-DAILY 11/10/20 11/10/20 History Ellipta 200-25 Mcg INH] Hydrocodone/Acetaminophen [[place] 1 tab PO Q6H PRN 11/10/20 11/10/20 History 10-325] Multivit-Min/FA/Lycopen/Lutein 1 tab PO DAILY 11/10/20 11/10/20 History [Centrum Silver Men Tablet] Allergies Allergy/AdvReac Type Severity Reaction Status Date / Time No Known Allergies Allergy Verified 11/10/20 08:55 Physical Exam Osteopathic Statement: *. No significant issues noted on an osteopathic structural exam other than those noted in the History and Physical/Consult. Vitals: Vital Signs Temp Pulse Resp BP Pulse Ox 11/10/20 12:22 85 24 89/59 97 11/10/20 12:04 87 18 85/60 98 11/10/20 11:14 89 18 91/66 99 11/10/20 10:13 98.3 F 11/10/20 09:51 93 16 85/58 97 11/10/20 08:57 93 16 96/70 97 11/10/20 08:42 97 11/10/20 07:56 21 11/10/20 07:40 100.2 F H 11/10/20 07:35 99.1 F 112 H 25 H 105/71 95 Intake and Output 11/09/20 11/10/20 11/10/20 22:59 06:59 14:59 Other: Weight 54.1 kg Mild tachypnea, poor historian, currently on a nonrebreather mask, with saturations in the low 90s. There is some mild conversational dyspnea. HEENT examination is grossly unremarkable. Mucous membranes are dry. Neck supple. Full range of motion. No adenopathy thyromegaly or neck vein distention. Cardiovascular examination reveals regular rhythm rate. S1-S2 normal. No S3 or S4. No discernible murmur noted. Heart rate 85 bpm. Lungs reveal diffuse bilateral chest congestion, with diffuse rhonchi and crackles. Mild expiratory wheezes. Breath sounds are diminished throughout. Abdomen soft bowel sounds are heard. No masses or tenderness. Extremities are intact. No cyanosis clubbing or edema. Skin is without rash or lesion. Neurologic examination is very difficult to assess. The patient does move all 4 extremities Results - Laboratory Findings CBC and BMP: 11/10/20 07:43 11/10/20 07:43 ABG ABG pH 7.40 (7.35-7.45) 11/10/20 10:49 ABG pCO2 45 mmHg (35-45) 11/10/20 10:49 ABG pO2 122 mmHg (83-108) H 11/10/20 10:49 ABG O2 Saturation 98.3 % (94-97) H 11/10/20 10:49 PT/INR, D-dimer PT 14.0 sec (9.0-12.0) H 11/10/20 07:43 INR 1.4 (<1.2) H 11/10/20 07:43 D-Dimer 32.67 mg/L FEU (<0.60) H 11/10/20 07:43 Abnormal lab findings: Abnormal Labs 11/10/20 11/10/20 11/10/20 07:43 07:43 07:43 WBC 45.2 H RBC 4.00 L Neutrophils # (Manual) 42.90 H Metamyelocytes # (Man) 0.45 H PT 14.0 H INR 1.4 H D-Dimer 32.67 H ABG pO2 ABG HCO3 ABG Total CO2 ABG O2 Saturation BUN 41 H Glucose 42 L* POC Glucose (mg/dL) Plasma Lactic Acid Rich Calcium 8.3 L AST 140 H Alkaline Phosphatase 217 H Lactate Dehydrogenase 1990 H Troponin I C-Reactive Protein 40.8 H Total Protein 6.0 L Albumin 2.8 L 11/10/20 11/10/20 11/10/20 07:43 07:43 10:49 WBC RBC Neutrophils # (Manual) Metamyelocytes # (Man) PT INR D-Dimer ABG pO2 122 H ABG HCO3 28 H ABG Total CO2 29 H ABG O2 Saturation 98.3 H BUN Glucose POC Glucose (mg/dL) Plasma Lactic Acid Rich 2.8 H* Calcium AST Alkaline Phosphatase Lactate Dehydrogenase Troponin I 0.126 H* C-Reactive Protein Total Protein Albumin 11/10/20 11:17 WBC RBC Neutrophils # (Manual) Metamyelocytes # (Man) PT INR D-Dimer ABG pO2 ABG HCO3 ABG Total CO2 ABG O2 Saturation BUN Glucose POC Glucose (mg/dL) 127 H Plasma Lactic Acid Rich Calcium AST Alkaline Phosphatase Lactate Dehydrogenase Troponin I C-Reactive Protein Total Protein Albumin - Diagnostic Findings Chest x-ray: image reviewed CT scan - chest: image reviewed Assessment and Plan Assessment: Acute hypoxemic respiratory failure, secondary to right lower lobe pneumonia, and small right-sided parapneumonic effusion. History of CAD with previous stenting. History of hyperlipidemia. History of gastroesophageal reflux disease. History of COPD from prior tobacco use. History of skin cancer. History of angina pectoris. Prior history of pneumonia. No evidence of pulmonary embolism on CT angiogram. Type B Gal abdominal aortic dissection Plan: Plan dated 11/10/2020. The patient will have to go to the intensive care unit. The patient was given vancomycin and cefepime in the emergency department. The patient will need updrafts, and also Pulmicort mixed with performist twice a day. Additional recommendations and suggestions are forthcoming. He did get some steroids in the emergency department. He did test negative for coronavirus. He has been fully vaccinated. Additional recommendations and suggestions are forthcoming. Prognosis is guarded. I let the ICU charge nurse know about the patient. Time with Patient: Greater than 30
--- NOTE | 2020-11-10 14:17 | P.HPIM ---
History of Present Illness H&P Date: 11/10/20 Chief Complaint: Worsening shortness of breath, cough This is 75-year-old gentleman with history of CAD, prior cardiac cath with stenting, advanced COPD/emphysema, pneumonia, skin cancer, thoracic aortic aneurysm, alcohol use and multiple other medical issues presented to the ER with complaints of worsening difficulty breathing, productive cough, chest pressure for approximately 10 days or longer. Patient reports he received both coronavirus vaccines. Denies fever or chills. Reports poor appetite. Denies nausea vomiting or diarrhea. Denies abdominal pain. Chest x-ray consistent with underlying COPD, extensive emphysema no pneumothorax, bilateral patchy airspace disease greater on the right, prominence of the pulmonary arteries consistent with underlying pulmonary artery hypertension, aortia dense and ectatic. CTA reported no evidence for acute PE, advanced emphysematous change with worsening masslike consolidation right lower lobe, small complex loculated posterior right pleural fluid collection, dissection beginning in the distal thoracic aorta just above the diaphragm extending along the course of the entire visualized portion of the abdominal aorta-type B Blencoe or DeBakey type III abdominal aortic dissection, 4 mm nonobstructing stone admitted to the lower pole right kidney. T-max 100.2, WBC 45.2. Hemoglobin 13.1, platelets 286 and MCV 98.8, d-dimer is 32.67, sodium 139, potassium 4.7, CO2 30, BUN 41, creatinine 1.12 ,glucose 42 on admission currently 127, lactic acid 2.8, calcium 8.3, magnesium 2 ferritin pending, total bili 0.7, AST 140 alk phos 217 ALT 48 LDH 1990, troponin 0.126, CRP 40.8, BNP 3130, ABGs noted. EKG reporting sinus tachycardia, PACs.Tested negative for coronavirus,Received vancomycin, cefepime and steroids in the ER. Review of Systems ROS Statement: Those systems with pertinent positive or pertinent negative responses have been documented in the HPI. ROS Other: All systems not noted in ROS Statement are negative. 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, PT STATED HE HAS ENLARGED AORTA(PER CT SCAN -THORACIC AORTIC ANEURYSM 4.2 CM), "HOARSNESS", History of Any Multi-Drug Resistant Organisms: None Reported Past Surgical History: Adenoidectomy, Appendectomy, Heart Catheterization With Stent, Hernia Repair, Orthopedic Surgery, Tonsillectomy Additional Past Surgical History / Comment(s): LET ROTATOR CUFF REPAIR,ANAL FISTULA REPAIR, EGD/COLONOSCOPY,MULTIPLE BASAL CELL 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,AGUILAR INGUINAL HERNIA REPAIR.RIGHT SHOULDER SURGERY X2 Past Anesthesia/Blood Transfusion Reactions: No Reported Reaction Date of Last Stent Placement:: 2005 Past Psychological History: No Psychological Hx Reported Past Alcohol Use History: Occasional Past Drug Use History: None Reported - Past Family History Father Family Medical History: Cancer Additional Family Medical History / Comment(s): TESTICULAR, BONE Mother Family Medical History: Cancer Additional Family Medical History / Comment(s): BONE Medications and Allergies Home Medications Medication Instructions Recorded Confirmed Type Aspirin EC [Ecotrin Low Dose] 81 mg PO HS 07/21/16 11/10/20 History Tiotropium Br/Olodaterol HCl 2 puff INHALATION RT-DAILY 05/14/19 11/10/20 History [Stiolto Respimat Inhal [place]] Omeprazole 20 mg PO BID 06/13/19 11/10/20 History Vitamin B Complex 1 cap PO DAILY 06/13/19 11/10/20 History Cyclobenzaprine [Flexeril] 10 mg PO TID PRN 08/30/19 11/10/20 History Atorvastatin [Lipitor] 10 mg PO HS 07/17/20 11/10/20 History L.acidoph,Paracasei, B.lactis 1 cap PO DAILY 07/17/20 11/10/20 History [Probiotic] atenoloL [Atenolol] 25 mg PO Q48H 07/17/20 11/10/20 History predniSONE 20 mg PO DAILY 07/17/20 11/10/20 History Fluticasone/Vilanterol [Breo 1 puff INHALATION RT-DAILY 11/10/20 11/10/20 History Ellipta 200-25 Mcg INH] Hydrocodone/Acetaminophen [[place] 1 tab PO Q6H PRN 11/10/20 11/10/20 History 10-325] Multivit-Min/FA/Lycopen/Lutein 1 tab PO DAILY 11/10/20 11/10/20 History [Centrum Silver Men Tablet] Allergies Allergy/AdvReac Type Severity Reaction Status Date / Time No Known Allergies Allergy Verified 11/10/20 08:55 Physical Exam Vitals: Vital Signs Temp Pulse Resp BP Pulse Ox 11/10/20 13:26 86 20 87/57 98 11/10/20 12:22 85 24 89/59 97 11/10/20 12:04 87 18 85/60 98 11/10/20 11:14 89 18 91/66 99 11/10/20 10:13 98.3 F 11/10/20 09:51 93 16 85/58 97 11/10/20 08:57 93 16 96/70 97 11/10/20 08:42 97 11/10/20 07:56 21 11/10/20 07:40 100.2 F H 11/10/20 07:35 99.1 F 112 H 25 H 105/71 95 Intake and Output 11/09/20 11/10/20 11/10/20 22:59 06:59 14:59 Other: Weight 54.1 kg PHYSICAL EXAM: VITAL SIGNS: [As above] GENERAL: Sitting up on stretcher, wearing a nonrebreather, respiratory effort increased, tachycardic HEENT: Conjunctivae normal. eyes normal. NECK: No JVD. No thyroid enlargement. No LNs CARDIOVASCULAR: S1, S2 regular.. No murmur RESPIRATION: Labored, Breath sounds diminished in the bases. Scattered rhonchi ,crackles and expiratory wheezes. ABDOMEN: Soft, nontender . No guarding. no masses palpable. Bowel sounds heard. LEGS: No edema. no swelling. No clubbing, no cyanosis. NERVOUS SYSTEM: Cranial N 2-12 grossly normal. Moves all 4 limbs. Unable to fully assess at this time secondary to patient's respiratory status Skin: Warm and dry, no rash Lymphatic system. No LN neck axilla. Results CBC & Chem 7: 11/10/20 07:43 11/10/20 07:43 Labs: Abnormal Lab Results - Last 24 Hours (Table) 11/10/20 11/10/20 11/10/20 Range/Units 07:43 07:43 07:43 WBC 45.2 H (3.8-10.6) k/uL RBC 4.00 L (4.30-5.90) m/uL Neutrophils # (Manual) 42.90 H (1.3-7.7) k/uL Metamyelocytes # (Man) 0.45 H (0) k/uL PT 14.0 H (9.0-12.0) sec INR 1.4 H (<1.2) D-Dimer 32.67 H (<0.60) mg/L FEU ABG pO2 (83-108) mmHg ABG HCO3 (21-25) mmol/L ABG Total CO2 (19-24) mmol/L ABG O2 Saturation (94-97) % BUN 41 H (9-20) mg/dL Glucose 42 L* (74-99) mg/dL POC Glucose (mg/dL) (75-99) mg/dL Plasma Lactic Acid Rich (0.7-2.0) mmol/L Calcium 8.3 L (8.4-10.2) mg/dL AST 140 H (17-59) U/L Alkaline Phosphatase 217 H (38-126) U/L Lactate Dehydrogenase 1990 H (313-618) U/L Troponin I (0.000-0.034) ng/mL C-Reactive Protein 40.8 H (<1.0) mg/dL Total Protein 6.0 L (6.3-8.2) g/dL Albumin 2.8 L (3.5-5.0) g/dL 11/10/20 11/10/20 11/10/20 Range/Units 07:43 07:43 10:49 WBC (3.8-10.6) k/uL RBC (4.30-5.90) m/uL Neutrophils # (Manual) (1.3-7.7) k/uL Metamyelocytes # (Man) (0) k/uL PT (9.0-12.0) sec INR (<1.2) D-Dimer (<0.60) mg/L FEU ABG pO2 122 H (83-108) mmHg ABG HCO3 28 H (21-25) mmol/L ABG Total CO2 29 H (19-24) mmol/L ABG O2 Saturation 98.3 H (94-97) % BUN (9-20) mg/dL Glucose (74-99) mg/dL POC Glucose (mg/dL) (75-99) mg/dL Plasma Lactic Acid Rich 2.8 H* (0.7-2.0) mmol/L Calcium (8.4-10.2) mg/dL AST (17-59) U/L Alkaline Phosphatase (38-126) U/L Lactate Dehydrogenase (313-618) U/L Troponin I 0.126 H* (0.000-0.034) ng/mL C-Reactive Protein (<1.0) mg/dL Total Protein (6.3-8.2) g/dL Albumin (3.5-5.0) g/dL 11/10/20 Range/Units 11:17 WBC (3.8-10.6) k/uL RBC (4.30-5.90) m/uL Neutrophils # (Manual) (1.3-7.7) k/uL Metamyelocytes # (Man) (0) k/uL PT (9.0-12.0) sec INR (<1.2) D-Dimer (<0.60) mg/L FEU ABG pO2 (83-108) mmHg ABG HCO3 (21-25) mmol/L ABG Total CO2 (19-24) mmol/L ABG O2 Saturation (94-97) % BUN (9-20) mg/dL Glucose (74-99) mg/dL POC Glucose (mg/dL) 127 H (75-99) mg/dL Plasma Lactic Acid Rich (0.7-2.0) mmol/L Calcium (8.4-10.2) mg/dL AST (17-59) U/L Alkaline Phosphatase (38-126) U/L Lactate Dehydrogenase (313-618) U/L Troponin I (0.000-0.034) ng/mL C-Reactive Protein (<1.0) mg/dL Total Protein (6.3-8.2) g/dL Albumin (3.5-5.0) g/dL Assessment and Plan Assessment: Acute hypoxic respiratory failure, secondary to right lower lobe pneumonia and loculated posterior right pleural effusion. 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 History of angina pectoris CAD with history of stenting Pulmonary hypertension Hyperlipidemia History of SVT Gastroesophageal reflux disease Alcohol use History of skin cancer Former nicotine dependence 4 mm right kidney nonobstructing stone per CTA Plan: Continue current medication regime ,monitoring and symptomatic treatment. Serial troponins ordered , cardiology consulted .Continue IV antibiotics, nebulized bronchodilators, steroids. Awaiting ICU bed. Evaluated by case management associate with recommendations to appreciate. Vascular surgery consulted regarding abnormal CT. Prognosis guarded given multiple complex medical issues. The impression and plan of care has been dictated as directed. : I performed a history and examination of this patient, discussed the same with the dictator. I agree with the dictator's note ,documented as a scribe. Any a dditional findings or plans will be noted.
[2020-11-10] MEDS: PANTOPRAZOLE 40 MG/10 ML VIAL IVP SCH (14:49)
--- NOTE | 2020-11-10 15:26 | P.GSCN ---
History of Present Illness Consult date: 11/10/20 Reason for Consult: Thoracic aortic dissection seen on CT Requesting physician: Fritz Ibarra Jr History of present illness: This is a 75-year-old male patient who presented to the emergency department this morning complaining of respiratory distress, cough, shortness of breath and difficulty breathing. This patient's past medical history includes coronary artery disease status post cardiac cath with splint stent, COPD, emphysema, angina, skin cancer and a reported history of thoracic aortic aneurysm, 4.2 cm in size per pulmonology note. The patient is a poor historian at this time as he is unable to talk much due to shortness of breath and lack of voice. He states he started smoking at the age of 89 years old and quit in 2019. Denied any fevers or chills, chest pain, abdominal pain, or back pain. He states that he was supposed to have further workup for an aortic aneurysm, however was unable to go. Covid-19 rapid negative. Lab data included a white count of 45.2, hemoglobin 13.1, hematocrit 39.5, platelet count 286,000. PT was 14, INR 1.4 d- dimer was 32.67. Sodium 139, potassium 4.7, chloride 98, CO2 30, anion 11, BUN 41, creatinine 1.12, glucose 42, lactic acid 2.8 LDH 1990, CRP 40.8, troponin 0.126. CT angiogram of chest shows no CT evidence for acute pulmonary embolism, background of advanced emphysematous change with worsening masslike consolidation in the right lower lobe. There is small complex a loculated posterior right pleural fluid collection. There is a partial visualization of a type B Gal or Debakey type III abdominal aortic dissection. The report states there is a dissection beginning in the distal thoracic aorta just above the diaphragm extending along course of the entire visualized portion of abdominal aorta. The patient had a previous CT angiogram of the chest in June 2020 was reported aorta normal caliber thoracic aorta with arthrosclerotic disease. CT angiogram of chest in October 2019 showed ascending aorta diameter at the level of the main pulmonary artery 3.9 cm. The main pulmonary artery diameter at the bifurcation is 3.2 cm. Review of Systems 14 point review of systems completed all pertinent positives and negatives as stated in the HPI 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, PT STATED HE HAS ENLARGED AORTA(PER CT SCAN -THORACIC AORTIC ANEURYSM 4.2 CM), "HOARSNESS", History of Any Multi-Drug Resistant Organisms: None Reported Past Surgical History: Adenoidectomy, Appendectomy, Heart Catheterization With Stent, Hernia Repair, Orthopedic Surgery, Tonsillectomy Additional Past Surgical History / Comment(s): LET ROTATOR CUFF REPAIR,ANAL FISTULA REPAIR, EGD/COLONOSCOPY,MULTIPLE BASAL CELL 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,AGUILAR INGUINAL HERNIA REPAIR.RIGHT SHOULDER SURGERY X2 Past Anesthesia/Blood Transfusion Reactions: No Reported Reaction Date of Last Stent Placement:: 2005 Past Psychological History: No Psychological Hx Reported Past Alcohol Use History: Occasional Past Drug Use History: None Reported - Past Family History Father Family Medical History: Cancer Additional Family Medical History / Comment(s): TESTICULAR, BONE Mother Family Medical History: Cancer Additional Family Medical History / Comment(s): BONE Medications and Allergies Home Medications Medication Instructions Recorded Confirmed Type Aspirin EC [Ecotrin Low Dose] 81 mg PO HS 07/21/16 11/10/20 History Tiotropium Br/Olodaterol HCl 2 puff INHALATION RT-DAILY 05/14/19 11/10/20 History [Stiolto Respimat Inhal [place]y] Omeprazole 20 mg PO BID 06/13/19 11/10/20 History Vitamin B Complex 1 cap PO DAILY 06/13/19 11/10/20 History Cyclobenzaprine [Flexeril] 10 mg PO TID PRN 08/30/19 11/10/20 History Atorvastatin [Lipitor] 10 mg PO HS 07/17/20 11/10/20 History L.acidoph,Paracasei, B.lactis 1 cap PO DAILY 07/17/20 11/10/20 History [Probiotic] atenoloL [Atenolol] 25 mg PO Q48H 07/17/20 11/10/20 History predniSONE 20 mg PO DAILY 07/17/20 11/10/20 History Fluticasone/Vilanterol [Breo 1 puff INHALATION RT-DAILY 11/10/20 11/10/20 History Ellipta 200-25 Mcg INH] Hydrocodone/Acetaminophen [[place] 1 tab PO Q6H PRN 11/10/20 11/10/20 History 10-325] Multivit-Min/FA/Lycopen/Lutein 1 tab PO DAILY 11/10/20 11/10/20 History [Centrum Silver Men Tablet] Allergies Allergy/AdvReac Type Severity Reaction Status Date / Time No Known Allergies Allergy Verified 11/10/20 08:55 Surgical - Exam Vital Signs Temp Pulse Resp BP Pulse Ox 99.1 F 112 H 25 H 105/71 95 11/10/20 07:35 11/10/20 07:35 11/10/20 07:35 11/10/20 07:35 11/10/20 07:35 Results - Labs 11/10/20 07:43 11/10/20 07:43 Abnormal Lab Results - Last 24 Hours (Table) 11/10/20 11/10/20 11/10/20 Range/Units 07:43 07:43 07:43 WBC 45.2 H (3.8-10.6) k/uL RBC 4.00 L (4.30-5.90) m/uL Neutrophils # (Manual) 42.90 H (1.3-7.7) k/uL Metamyelocytes # (Man) 0.45 H (0) k/uL PT 14.0 H (9.0-12.0) sec INR 1.4 H (<1.2) D-Dimer 32.67 H (<0.60) mg/L FEU ABG pO2 (83-108) mmHg ABG HCO3 (21-25) mmol/L ABG Total CO2 (19-24) mmol/L ABG O2 Saturation (94-97) % BUN 41 H (9-20) mg/dL Glucose 42 L* (74-99) mg/dL POC Glucose (mg/dL) (75-99) mg/dL Plasma Lactic Acid Rich (0.7-2.0) mmol/L Calcium 8.3 L (8.4-10.2) mg/dL AST 140 H (17-59) U/L Alkaline Phosphatase 217 H (38-126) U/L Lactate Dehydrogenase 1990 H (313-618) U/L Troponin I (0.000-0.034) ng/mL C-Reactive Protein 40.8 H (<1.0) mg/dL Total Protein 6.0 L (6.3-8.2) g/dL Albumin 2.8 L (3.5-5.0) g/dL 11/10/20 11/10/20 11/10/20 Range/Units 07:43 07:43 10:49 WBC (3.8-10.6) k/uL RBC (4.30-5.90) m/uL Neutrophils # (Manual) (1.3-7.7) k/uL Metamyelocytes # (Man) (0) k/uL PT (9.0-12.0) sec INR (<1.2) D-Dimer (<0.60) mg/L FEU ABG pO2 122 H (83-108) mmHg ABG HCO3 28 H (21-25) mmol/L ABG Total CO2 29 H (19-24) mmol/L ABG O2 Saturation 98.3 H (94-97) % BUN (9-20) mg/dL Glucose (74-99) mg/dL POC Glucose (mg/dL) (75-99) mg/dL Plasma Lactic Acid Rich 2.8 H* (0.7-2.0) mmol/L Calcium (8.4-10.2) mg/dL AST (17-59) U/L Alkaline Phosphatase (38-126) U/L Lactate Dehydrogenase (313-618) U/L Troponin I 0.126 H* (0.000-0.034) ng/mL C-Reactive Protein (<1.0) mg/dL Total Protein (6.3-8.2) g/dL Albumin (3.5-5.0) g/dL 11/10/20 Range/Units 11:17 WBC (3.8-10.6) k/uL RBC (4.30-5.90) m/uL Neutrophils # (Manual) (1.3-7.7) k/uL Metamyelocytes # (Man) (0) k/uL PT (9.0-12.0) sec INR (<1.2) D-Dimer (<0.60) mg/L FEU ABG pO2 (83-108) mmHg ABG HCO3 (21-25) mmol/L ABG Total CO2 (19-24) mmol/L ABG O2 Saturation (94-97) % BUN (9-20) mg/dL Glucose (74-99) mg/dL POC Glucose (mg/dL) 127 H (75-99) mg/dL Plasma Lactic Acid Rich (0.7-2.0) mmol/L Calcium (8.4-10.2) mg/dL AST (17-59) U/L Alkaline Phosphatase (38-126) U/L Lactate Dehydrogenase (313-618) U/L Troponin I (0.000-0.034) ng/mL C-Reactive Protein (<1.0) mg/dL Total Protein (6.3-8.2) g/dL Albumin (3.5-5.0) g/dL Diabetes panel 11/10/20 Range/Units 07:43 Sodium 139 (137-145) mmol/L Potassium 4.7 (3.5-5.1) mmol/L Chloride 98 (98-107) mmol/L Carbon Dioxide 30 (22-30) mmol/L BUN 41 H (9-20) mg/dL Creatinine 1.12 (0.66-1.25) mg/dL Glucose 42 L* (74-99) mg/dL Calcium 8.3 L (8.4-10.2) mg/dL AST 140 H (17-59) U/L ALT 48 (4-49) U/L Alkaline Phosphatase 217 H (38-126) U/L Total Protein 6.0 L (6.3-8.2) g/dL Albumin 2.8 L (3.5-5.0) g/dL Calcium panel 11/10/20 Range/Units 07:43 Calcium 8.3 L (8.4-10.2) mg/dL Albumin 2.8 L (3.5-5.0) g/dL Pituitary panel 11/10/20 Range/Units 07:43 Sodium 139 (137-145) mmol/L Potassium 4.7 (3.5-5.1) mmol/L Chloride 98 (98-107) mmol/L Carbon Dioxide 30 (22-30) mmol/L BUN 41 H (9-20) mg/dL Creatinine 1.12 (0.66-1.25) mg/dL Glucose 42 L* (74-99) mg/dL Calcium 8.3 L (8.4-10.2) mg/dL Adrenal panel 11/10/20 Range/Units 07:43 Sodium 139 (137-145) mmol/L Potassium 4.7 (3.5-5.1) mmol/L Chloride 98 (98-107) mmol/L Carbon Dioxide 30 (22-30) mmol/L BUN 41 H (9-20) mg/dL Creatinine 1.12 (0.66-1.25) mg/dL Glucose 42 L* (74-99) mg/dL Calcium 8.3 L (8.4-10.2) mg/dL Total Bilirubin 0.7 (0.2-1.3) mg/dL AST 140 H (17-59) U/L ALT 48 (4-49) U/L Alkaline Phosphatase 217 H (38-126) U/L Total Protein 6.0 L (6.3-8.2) g/dL Albumin 2.8 L (3.5-5.0) g/dL - Imaging CT scan - chest: report reviewed (CT angiogram of chest shows no CT evidence for acute pulmonary embolism, background of advanced emphysematous change with worsening masslike consolidation in the right lower lobe. There is small complex a loculated posterior right pleural fluid collection. There is a partial visualization of a typ) Assessment and Plan Assessment: 1. Dissection in the distal thoracic aorta as reported by CT angiogram of the chest 2. History of thoracic aortic aneurysm, according to pulmonology note 4.2 cm 3. Acute hypoxic respiratory failure secondary to right lower lobe pneumonia and small right-sided parapneumonic effusion 4. History of coronary artery disease 5. History of COPD from prior tobacco use 6. History of angina Plan: 1. Symptomatic and supportive care 2. CTA abdomen and pelvis with runoff ordered 3. CTA chest findings discussed with Dr. Jenkins, further recommendations to follow Thank you for this consultation, we will continue to follow. The above dictated assessment and findings were discussed with Dr. Jenkins. The impression and plan of care have been directed as dictated.
[2020-11-10] MEDS: IPRATROPIUM-ALBUTEROL 3 ML NEB INHALATION SCH ×2 (17:54→22:14)
[2020-11-10 18:52] LABS: Glucose,Whole Blood 122 mg/dL (75-99)
[2020-11-10] MEDS: VANCOMYCIN 1,000 MG in SODIUM CHLORIDE 0.9% 250 ML IVPB SCH (20:28)
[2020-11-10] MEDS: FORMOTEROL FUMARATE 20 MCG/2 ML NEBU INHALATION SCH (22:14)
[2020-11-10] MEDS: BUDESONIDE 1 MG/2 ML NEBU INHALATION SCH (22:14)
--- NOTE | 2020-11-10 22:56 | CT ---
EXAMINATION TYPE: CT angio abd aorta w/Runoff DATE OF EXAM: 11/10/2020 COMPARISON: Same day CTA chest HISTORY: abnormal CTA chest with aortic dissection noted CT DLP: 2064.3 mGycm, Automated Exposure Control for Dose Reduction was Utilized. CONTRAST: CT scan of the abdomen and pelvis is performed with oral and without and with IV Contrast, patient in jected with 125 mL of Isovue 370. TECHNIQUE: Thin slice CT angiography axial images of the abdomen and pelvis and bilateral lower extre mities was performed with runoff protocol. Noncontrast images through the abdomen and pelvis performe d. Coronal and sagittal reformatted images obtained. Three-dimensional images generated and utilized on a separate workstation. FINDINGS: VASCULAR: Abdominal aorta is normal in caliber with no evidence of aneurysm or dissection. There is moderate to marked aortobiiliac calcified and noncalcified atherosclerotic disease. The origins of the celiac tr unk, SMA, bilateral single renal arteries and the MARIZA are patent. There is a short segment focal dissection of the left common iliac artery. No hemodynamically signifi cant stenosis of the iliac arteries bilaterally. There is no hemodynamically significant stenosis of the bilateral lower extremities. Atherosclerotic narrowing of the right popliteal artery is under 50% . There is three-vessel runoff to the bilateral feet. LUNG BASES: Cardiac size normal. No pericardial effusion. Confluent opacity of the right lung base. L eft basilar atelectasis. Marked emphysema of the lung bases. The liver is normal. There is redundant course of the gallbladder. Atrophic pancreas. Spleen is emily l in size. Unchanged nodular thickening of the left adrenal gland. No hydronephrosis of the bilateral kidneys. Bowel loops demonstrate no evidence of obstruction or thickening. Colonic diverticulosis. No acute di verticulitis. There is a moderate amount of colonic fecal debris within the ascending colon. Urinary bladder normal. Prostate enlarged with coarse calcifications. No pneumoperitoneum or ascites. Degenerative changes of the spine, hips, and knees. There are numerou s compression deformities of the lumbar spine redemonstrated at L1, L3, and L4 as seen on 02/15/2020 M RI lumbar spine comparison. IMPRESSION: 1. No evidence of abdominal aortic aneurysm or dissection. Findings on same day CTA chest comparison of the upper abdominal aorta are likely due to contrast mixing. 2. Short focal dissection of the left common iliac artery. 3. Three-vessel runoff to the bilateral feet. 4. Additional findings as above.
[2020-11-10] MEDS: CEFEPIME 2 GM in SODIUM CHLORIDE 0.9% 100 ML IVPB SCH (23:13)
[2020-11-11 03:25] LABS: Appearance,Urine Clear (Clear); Bilirubin,Urine Negative (Negative); Blood,Urine Negative (Negative); Color,Urine Yellow; Glucose,Urine (UA) Negative (Negative); Ketones,Urine Trace (Negative); Leukocyte Esterase,Urine Negative (Negative); Nitrite,Urine Negative (Negative); Protein,Urine Trace (Negative); Urobilinogen,Urine <2.0 mg/dL (<2.0)
[2020-11-11 03:30] LABS: Specific Gravity,Urine >1.050 (1.001-1.035)
[2020-11-11 06:22] LABS: African American GFR (CKD) >90 (>60 ml/min/1.73 sqM); Anion Gap 2 mmol/L; Blood Urea Nitrogen 28 mg/dL (9-20); Calcium 7.8 mg/dL (8.4-10.2); Carbon Dioxide 34 mmol/L (22-30); Chloride 104 mmol/L (98-107); Glucose 101 mg/dL (74-99); Non-African American GFR(CKD) >90 (>60 ml/min/1.73 sqM); Potassium 4.2 mmol/L (3.5-5.1); Sodium 140 mmol/L (137-145)
[2020-11-11] MEDS: BUDESONIDE 1 MG/2 ML NEBU INHALATION SCH ×2 (07:30→19:13)
[2020-11-11] MEDS: IPRATROPIUM-ALBUTEROL 3 ML NEB INHALATION SCH ×4 (07:31→19:13)
[2020-11-11] MEDS: FORMOTEROL FUMARATE 20 MCG/2 ML NEBU INHALATION SCH ×2 (07:31→19:13)
--- NOTE | 2020-11-11 07:59 | XR ---
EXAMINATION TYPE: XR chest 1V DATE OF EXAM: 11/11/2020 COMPARISON: Chest x-ray 11/10/2020 HISTORY: Shortness of breath TECHNIQUE: Single frontal view of the chest is obtained. FINDINGS: Bilateral airspace disease shows a similar appearance. There is some interval improved vis ualization of left hemidiaphragm. Cardiac mediastinal silhouette is stable. IMPRESSION: Correlate for pneumonia. There is underlying emphysema.
[2020-11-11] MEDS: PANTOPRAZOLE 40 MG/10 ML VIAL IVP SCH (08:00)
[2020-11-11] MEDS ORDERED: ENOXAPARIN 40 MG/0.4 ML SYRINGE SQ SCH (09:00)
--- NOTE | 2020-11-11 09:32 | US ---
EXAMINATION TYPE: US venous doppler duplex LE DATE OF EXAM: 11/11/2020 9:11 AM COMPARISON: NONE CLINICAL HISTORY: high d-dimer. Elevated d-dimer SIDE PERFORMED: Bilateral TECHNIQUE: The lower extremity deep venous system is examined utilizing real time linear array sonog cynthia with graded compression, doppler sonography and color-flow sonography. VESSELS IMAGED: Common Femoral Vein Deep Femoral Vein Greater Saphenous Vein * Femoral Vein Popliteal Vein Small Saphenous Vein * Proximal Calf Veins (* superficial vessels) Right Leg: Partial thrombus proximal right femoral vein, + DVT complete occlusion within popliteal v ein Left Leg: Positive for DVT within popliteal vein Grayscale, color doppler, spectral doppler imaging performed of the deep veins of the bilateral lower extremities. IMPRESSION: Bilateral acute DVT greater in extent in the right lower extremity versus left lower ext remity as detailed above.
[2020-11-11] MEDS: CEFEPIME 2 GM in SODIUM CHLORIDE 0.9% 100 ML IVPB SCH ×3 (09:38→23:24)
[2020-11-11] MEDS: methylPREDNISolone SOD SUCCI 125 MG/2 ML VIAL IV SCH ×4 (09:39→23:24)
[2020-11-11] MEDS: VANCOMYCIN 1,000 MG in SODIUM CHLORIDE 0.9% 250 ML IVPB SCH ×2 (09:47→20:58)
[2020-11-11] MEDS: SODIUM CHLORIDE 0.9% 1,000 ML IV SCH ×4 (09:48→17:16)
[2020-11-11] MEDS ORDERED: HEPARIN SODIUM 1,000 UN/ML (10ML VL) IV ONE (10:13)
[2020-11-11] MEDS ORDERED: HEPARIN SODIUM 1,000 UN/ML (10ML VL) IV PRN (10:13)
[2020-11-11 10:41] LABS: HCT 35.8 % (39.0-53.0); HGB 11.4 gm/dL (13.0-17.5); Hypochromasia Moderate; MCH 32.5 pg (25.0-35.0); MCHC 31.8 g/dL (31.0-37.0); MCV 102.2 fL (80.0-100.0); Macrocytosis Slight; Platelet Count 194 k/uL (150-450); RBC 3.51 m/uL (4.30-5.90); RDW 12.8 % (11.5-15.5); WBC 33.8 k/uL (3.8-10.6)
[2020-11-11] MEDS: HEPARIN SOD,PORK IN 0.45% NACL 25,000 UNIT in 0.45% NACL 1 250ML.BAG IV SCH (11:20)
--- NOTE | 2020-11-11 12:01 | ECHOF ---
Referral Reason:elevated troponin, hypoxia MEASUREMENTS -------- HEIGHT: 165.1 cm WEIGHT: 81.7 kg BP: RVIDd: 3.7 cm (< 3.3) IVSd: 0.8 cm (0.6 - 1.1) LVIDd: 4.1 cm (3.9 - 5.3) LVPWd: 1.3 cm (0.6 - 1.1) IVSs: 1.2 cm LVIDs: 2.1 cm LVPWs: 1.3 cm Ao Diam: 3.2 cm (2.0 - 3.7) AV Cusp: 1.6 cm (1.5 - 2.6) MV EXCURSION: 18.742 mm (> 18.000) MV EF SLOPE: 29 mm/s (70 - 150) EPSS: 0.2 cm RAP: 5.00 mmHg RVSP: 15.28 mmHg FINDINGS -------- Sinus rhythm. This was a techncally difficult study with suboptimal views, , Lumason utilized for enhancement of im ages. LV size, wall thickness and systolic function are normal, with an EF greater than 55%. The left angelique tricular size is normal. The right ventricle is normal in size. The left atrial size is normal. The right atrial size is normal. There is mild aortic valve sclerosis. Mild mitral regurgitation is present. Mild tricuspid regurgitation present. Right ventricular systolic pressure is normal at < 35 mmHg. The pulmonic valve was not well visualized. The aortic root size is normal. There is no pericardial effusion. CONCLUSIONS -------- 1. This was a techncally difficult study with suboptimal views, , Lumason utilized for enhancement of images. 2. LV size, wall thickness and systolic function are normal, with an EF greater than 55%. 3. The left ventricular size is normal. 4. The right ventricle is normal in size. 5. The left atrial size is normal. 6. The right atrial size is normal. 7. There is mild aortic valve sclerosis. 8. Mild mitral regurgitation is present. 9. Mild tricuspid regurgitation present. 10. The pulmonic valve was not well visualized. 11. The aortic root size is normal. 12. There is no pericardial effusion. ADJUNCT PROFESSOR OF LAW: Shanelle Ray RDCS
--- NOTE | 2020-11-11 12:04 | P.PN ---
Subjective Progress Note Date: 11/11/20 Principal diagnosis: Pneumonia, right lung greater than left 75-year-old male, who presents to the emergency department, on November 10, in the morning, complaining of respiratory distress, cough, shortness of breath, and difficulty breathing. The patient is not a particularly good historian. Apparently the patient has been sick for at least 10 days and may be a bit longer. He admits to cough, chest congestion, and phlegm production. The patient has received full coronavirus vaccination. He apparently the patient has a history of both CAD, and COPD. There is no fever or chills. He denies chest pain or chest discomfort. His appetite has been poor. His chest x-ray s hows a substantial infiltrate in the right lower lobe, and on computed tomography scan, there was no pulmonary embolism, but there was pneumonia, and possibly a parapneumonic effusion. The patient's history includes CAD, pneumonia, COPD, angina, skin cancer, and thoracic aortic aneurysm, 4.2 cm in size. The patient is also had a cardiac catheterization with stent. Lab data includes a white count of 45.2, hemoglobin 13.1, hematocrit 39.5, platelet count 286,000. PT was 14, INR 1.4, PTT 24.6, and d-dimer was 32.67. Blood gases show a PaO2 of 122, pCO2 45, pH is 7.4. Sodium 139, potassium 4.7, chlorides 98, CO2 30, anion gap 11, BUN 41, creatinine 1.12, glucose 42, lactic acid 2.8, repeat 1.1, LDH 1990, C-reactive protein 40.8, troponin 0.126, and coronavirus testing, was negative. N-terminal proBNP was 3130. Chest x-ray and CAT scan of both reviewed. On 11/11/2020 patient seen in follow-up in the intensive care unit, he is awake and alert, he is moderately dyspneic with conversation, he is currently on 6 L of oxygen his pulse ox is 87-92%, is awake and alert, oriented 3, answering questions appropriately, he is pointing is infusing at a rate of 120 ML per hour, no other drips, he is on accommodation cefepime and vancomycin for bibasilar pneumonia right greater than left. He is tolerating oral intake, he sounds very congested on today's exam, not bringing up any sputum, today's chest x-ray showing bilateral airspace disease with some interval improvement. She was afebrile overnight, hemodynamically stable, he is sinus mechanism with a rate of 92. He is on breathing treatments. Today's labs have been reviewed showing trending white blood cell count to 33.8, hemoglobin of 11.4, is a d- dimer was quite elevated yesterday at 32.6, sodium is 140, potassium is 4.2, chloride is 104, CO2 34, B1 is 20, creatinine 0.67, his troponins trended down with peripheral and down to 0.057. She was negative for COVID-19, his urinalysis showed no clear sign of infection. Per his blood cultures are negative. Objective - Vital Signs Vital signs: Vital Signs Temp 97.9 F 11/11/20 08:00 Pulse 80 11/11/20 11:48 Resp 24 11/11/20 10:00 BP 103/67 11/11/20 10:00 Pulse Ox 95 11/11/20 10:00 Intake & Output 11/10/20 11/11/20 11/11/20 18:59 06:59 18:59 Intake Total 1280 560 Output Total 500 350 Balance 780 210 Weight 54.1 kg 58.7 kg Intake: IV 810 335 0.9 810 335 Intake, IV Titration 350 225 Amount Cefepime 2 gm In Sodium 100 100 Chloride 0.9% 100 ml @ 25 mls/hr IVPB Q12HR [facility] Rx #:[id number] Vancomycin 1,000 mg In 125 Sodium Chloride 0.9% 250 ml @ 125 mls/hr IVPB Q10H [facility] Rx#:[id number] Vancomycin 1,000 mg In 250 Sodium Chloride 0.9% 250 ml @ 125 mls/hr IVPB Q12HR [facility] Rx#:[id number] Oral 120 Output: Urine 500 350 Other: Voiding Method Urinal Urinal - Exam GENERAL EXAM: Alert, very pleasant, 75-year-old white male, on 6 L of oxygen with pulse ox between 87-92%, moderately dyspneic with conversation, and even trying to eat patient seems to be short of breath, sounds congested comfortable in no apparent distress. HEAD: Normocephalic/atraumatic. EYES: Normal reaction of pupils, equal size. Conjunctiva pink, sclera white. NOSE: Clear with pink turbinates. THROAT: No erythema or exudates. NECK: No masses, no JVD, no thyroid enlargement, no adenopathy. CHEST: No chest wall deformity. Symmetrical expansion. LUNGS: Equal air entry with bibasilar crackles, congested cough, CVS: Regular rate and rhythm, normal S1 and S2, no gallops, no murmurs, no rubs ABDOMEN: Soft, nontender. No hepatosplenomegaly, normal bowel sounds, no guarding or rigidity. EXTREMITIES: No clubbing, no edema, no cyanosis, 2+ pulses and upper and lower extremities. MUSCULOSKELETAL: Muscle strength and tone normal. SPINE: No scoliosis or deformity SKIN: No rashes CENTRAL NERVOUS SYSTEM: Alert and oriented -3. No focal deficits, tone is normal in all 4 extremities. PSYCHIATRIC: Alert and oriented -3. Appropriate affect. Intact judgment and insight. - Labs CBC & Chem 7: 11/11/20 04:36 11/11/20 04:36 Labs: Abnormal Lab Results - Last 24 Hours (Table) 11/10/20 11/10/20 11/10/20 Range/Units 07:43 07:43 14:42 WBC (3.8-10.6) k/uL RBC (4.30-5.90) m/uL Hgb (13.0-17.5) gm/dL Hct (39.0-53.0) % MCV (80.0-100.0) fL Carbon Dioxide (22-30) mmol/L BUN (9-20) mg/dL Glucose (74-99) mg/dL POC Glucose (mg/dL) (75-99) mg/dL Calcium (8.4-10.2) mg/dL Ferritin 2552.0 H (22.0-322.0) ng/mL Troponin I 0.075 H* (0.000-0.034) ng/mL Procalcitonin 13.85 H (0.02-0.09) ng/mL Ur Specific [place] (1.001-1.035) Urine Protein (Negative) Urine Ketones (Negative) 11/10/20 11/10/20 11/11/20 Range/Units 18:51 20:00 02:50 WBC (3.8-10.6) k/uL RBC (4.30-5.90) m/uL Hgb (13.0-17.5) gm/dL Hct (39.0-53.0) % MCV (80.0-100.0) fL Carbon Dioxide (22-30) mmol/L BUN (9-20) mg/dL Glucose (74-99) mg/dL POC Glucose (mg/dL) 122 H (75-99) mg/dL Calcium (8.4-10.2) mg/dL Ferritin (22.0-322.0) ng/mL Troponin I 0.057 H* (0.000-0.034) ng/mL Procalcitonin (0.02-0.09) ng/mL Ur Specific [place] >1.050 H (1.001-1.035) Urine Protein Trace H (Negative) Urine Ketones Trace H (Negative) 11/11/20 11/11/20 Range/Units 04:36 04:36 WBC 33.8 H (3.8-10.6) k/uL RBC 3.51 L (4.30-5.90) m/uL Hgb 11.4 L (13.0-17.5) gm/dL Hct 35.8 L (39.0-53.0) % MCV 102.2 H (80.0-100.0) fL Carbon Dioxide 34 H (22-30) mmol/L BUN 28 H (9-20) mg/dL Glucose 101 H (74-99) mg/dL POC Glucose (mg/dL) (75-99) mg/dL Calcium 7.8 L (8.4-10.2) mg/dL Ferritin (22.0-322.0) ng/mL Troponin I (0.000-0.034) ng/mL Procalcitonin (0.02-0.09) ng/mL Ur Specific [place] (1.001-1.035) Urine Protein (Negative) Urine Ketones (Negative) Microbiology - Last 24 Hours (Table) 11/10/20 07:59 Blood Culture - Preliminary Blood No Growth after 24 hours 11/10/20 07:43 Blood Culture - Preliminary Blood No Growth after 24 hours Assessment and Plan Plan: Assessment: #1. Acute on chronic hypoxic respiratory failure secondary to right lower lobe pneumonia and a small right-sided parapneumonic effusion, rule out possibility of aspiration #2. History of stage IV COPD with recent FEV1 of 22% of predicted on home oxygen 2 L/m #3. Bilateral acute DVT is greater in the right lower extremity versus the left lower extremity, CTA chest showed no evidence of pulmonary embolism #4. Troponin leak #5. CAD with previous stenting #6. Hypertension #7. Hyperlipidemia #8. Thoracic aortic aneurysm . Patient follows with Dr. Ramos: #9. History of basal cell cancer with multiple lesions removed from his back and arms #10. Osteoporosis #11. Previous episodes of pneumonia Plan: Continue current antibiotic coverage, sending sputum culture, hemodynamically p atient is stable, titrate FiO2 to keep O2 sats saturation is between 88-90%, we will add IV steroids Solu-Medrol 60 every 6 hours, patient was found to have lower extremity DVTs, and he will be started on heparin infusion, breathing treatments, Protonix for GI prophylaxis, CTA showed evidence of right lung pneumonia and small parapneumonic effusion with no evidence of pulmonary embolism. Obtain a speech evaluation for possibility of silent aspiration. Patient is stable to transfer out of intensive care unit to regular medical surgical floor today I performed a history & physical examination of the patient and discussed their management with my nurse practitioner, Cookie Mason. I reviewed the nurse practitioner's note and agree with the documented findings and plan of care. Lung sounds are positive for diffuse rhonchi. The findings and the impression was discussed with the patient. I attest to the documentation by the nurse practitioner. Time with Patient: Less than 30
[2020-11-11 12:24] LABS: INR 1.3 (<1.2); Partial Thromboplastin Time 26.8 sec (22.0-30.0); Prothrombin Time 13.2 sec (9.0-12.0)
--- NOTE | 2020-11-11 12:32 | P.CRDCN ---
History of Present Illness History of present illness: HISTORY OF PRESENTING ILLNESS This is a pleasant 75-year-old male past medical history significant for hypertension, coronary artery disease s/p stenting mid RCA in 2008, dyslipidemia, peripheral vascular disease, SVT, nicotine dependence, COPD. He follows in the office with Dr. Scales. We have been asked to see in consultation for elevated troponin. Patient admitted to the Intensive Care Unit. Patient presents to the emergency department in respiratory distress. He received his second coronavirus vaccine about 2 weeks ago. Continued to have progressively worsening shortness of breath, cough, and difficulty breathing. He also endorses significant weight loss over the past couple months. Also having significant night sweats at home. Chest x-ray revealed Bilateral patchy infiltrates present greater on the right, prominent lung volumes consistent with underlying COPD. CT chest revealed type B [place] or [place] type III abdominal aortic dissection, worsening mass like consolidation in the RLL, small posterior right pleural fluid collection, negative for PE. CTA abdomen w/ Runoff revealed - No evidence of abdominal aortic aneurysm or dissection. Current home cardiac medications include aspirin 81mg daily, atorvastatin 10mg nightly, atenolol 25mg Q48hr. On prednisone 20mg daily. DIAGNOSTICS EKG reveals sinus tachycardia HR 117, no significant ST-T wave abnormalities, po or R wave progression. Venous Dopplers- partial thrombus in the proximal right femoral vein, positive DVT in the complete occlusion within the right popliteal vein, Positive for DVT within the left popliteal vein CTA abdomen w/ Runoff- No evidence of abdominal aortic aneurysm or dissection. Short focal dissection of the left common iliac artery. Last Cardiac Catheterization 08/2019: mild to moderate nonobstructive coronary artery disease. Most recent Echocardiogram 08/2019- EF 50-55%, AV mildly thickened, trace MR, mild TR. Telemetry tracings indicate sinus mechanism HR 80s. Laboratory data reviewed, Troponin trend 0.12-->0.07-->0.05, BNP 3130 (previously 2020 was 723), Covid-19 negative, Ddimer- 32, WBC 45, Hgb 12.1, Plt 286 REVIEW OF SYSTEMS At the time of my exam: CONSTITUTIONAL: +night sweats, +weight loss, Denies fever or chills. CARDIOVASCULAR: +shortness of breath, Denies chest pain orthopnea, PND or palpitations. RESPIRATORY: + cough. GASTROINTESTINAL: Denies abdominal pain, diarrhea, constipation, nausea or vomiting. MUSCULOSKELETAL: Denies myalgias. NEUROLOGIC: Denies numbness, tingling, headacbe or weakness. ENDOCRINE: +weight change, +fatigue Denies polydipsia or polyurina. GENITOURINARY: Denies burning, hematuria or urgency with micturation. HEMATOLOGIC: Denies history of anemia or bleeding. PHYSICAL EXAMINATION Vital signs BP 103/66 HR 89, SpO2 88% on 5L nasal cannula, afebrile. CONSTITUTIONAL: Appears short of breath HEENT: Head is normocephalic. Pupils are equal, round. Sclerae anicteric. Mucous membranes of the mouth are moist. No JVD. No carotid bruit. CHEST EXAMINATION: Lungs diminished throughout, with diffuse rhonchi and crackles bilaterally, some expiratory wheezing . No chest wall tenderness is noted on palpation or with deep breathing. HEART EXAMINATION: Regular rate and rhythm. S1, S2 heard. No murmurs, gallops or rub. ABDOMEN: Soft, nontender. Positive bowel sounds. EXTREMITIES: 2+ peripheral pulses, no lower extremity edema and no calf tenderness. SKIN: intact NEUROLOGIC EXAMINATION: Patient is awake, alert and oriented x3. ASSESSMENT Acute Hypoxic respiratory failure - possibly related to pneumonia Elevated Troponin - 0.12-->0.07-->0.05, most likely related to hypoxia and not acute coronary syndrome, EKG with no evidence of ischemia, patient denies chest discomfort New Bilateral lower extremity Deep vein thrombosis Coronary artery disease s/p stenting mid RCA in 2008 History of Hypertension Dyslipidemia History of SVT COPD PLAN 2D echocardiogram to assess cardiac structure and function ordered, No acute fin dings, EF 55%, mild MR, mild AV sclerosis, mild TR present At this time, no need for further cardiology testing. We will sign off at this time. Please reach out for any further questions or concerns. Thank you kindly for this consultation. Nurse Practitioner note has been reviewed, I agree with a documented findings and plan of care. Patient was seen and examined. 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, PT STATED HE HAS ENLARGED AORTA(PER CT SCAN -THORACIC AORTIC ANEURYSM 4.2 CM), "HOARSNESS", History of Any Multi-Drug Resistant Organisms: None Reported Past Surgical History: Adenoidectomy, Appendectomy, Heart Catheterization With Stent, Hernia Repair, Orthopedic Surgery, Tonsillectomy Additional Past Surgical History / Comment(s): LET ROTATOR CUFF REPAIR,ANAL FISTULA REPAIR, EGD/COLONOSCOPY,MULTIPLE BASAL CELL 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,AGUILAR INGUINAL HERNIA REPAIR.RIGHT SHOULDER SURGERY X2 Past Anesthesia/Blood Transfusion Reactions: No Reported Reaction Date of Last Stent Placement:: 2005 Past Psychological History: No Psychological Hx Reported Past Alcohol Use History: Occasional Past Drug Use History: None Reported - Past Family History Father Family Medical History: Cancer Additional Family Medical History / Comment(s): TESTICULAR, BONE Mother Family Medical History: Cancer Additional Family Medical History / Comment(s): BONE Medications and Allergies Home Medications Medication Instructions Recorded Confirmed Type Aspirin EC [Ecotrin Low Dose] 81 mg PO HS 07/21/16 11/10/20 History Tiotropium Br/Olodaterol HCl 2 puff INHALATION RT-DAILY 05/14/19 11/10/20 History [Stiolto Respimat Inhal [place]] Omeprazole 20 mg PO BID 06/13/19 11/10/20 History Vitamin B Complex 1 cap PO DAILY 06/13/19 11/10/20 History Cyclobenzaprine [Flexeril] 10 mg PO TID PRN 08/30/19 11/10/20 History Atorvastatin [Lipitor] 10 mg PO HS 07/17/20 11/10/20 History L.acidoph,Paracasei, B.lactis 1 cap PO DAILY 07/17/20 11/10/20 History [Probiotic] atenoloL [Atenolol] 25 mg PO Q48H 07/17/20 11/10/20 History predniSONE 20 mg PO DAILY 07/17/20 11/10/20 History Fluticasone/Vilanterol [Breo 1 puff INHALATION RT-DAILY 11/10/20 11/10/20 History Ellipta 200-25 Mcg INH] Hydrocodone/Acetaminophen [[place] 1 tab PO Q6H PRN 11/10/20 11/10/20 History 10-325] Multivit-Min/FA/Lycopen/Lutein 1 tab PO DAILY 11/10/20 11/10/20 History [Centrum Silver Men Tablet] Allergies Allergy/AdvReac Type Severity Reaction Status Date / Time No Known Allergies Allergy Verified 11/10/20 08:55 Physical Exam Vitals: Vital Signs Temp Pulse Resp BP Pulse Ox 11/10/20 13:48 87 21 95/67 98 11/10/20 13:26 86 20 87/57 98 11/10/20 12:22 85 24 89/59 97 11/10/20 12:04 87 18 85/60 98 11/10/20 11:14 89 18 91/66 99 11/10/20 10:13 98.3 F 11/10/20 09:51 93 16 85/58 97 11/10/20 08:57 93 16 96/70 97 11/10/20 08:42 97 11/10/20 07:56 21 11/10/20 07:40 100.2 F H 11/10/20 07:35 99.1 F 112 H 25 H 105/71 95 Intake and Output 11/09/20 11/10/20 11/10/20 22:59 06:59 14:59 Other: Weight 54.1 kg Results 11/11/20 04:36 11/11/20 04:36 Cardiac Enzymes 11/10/20 11/10/20 Range/Units 07:43 07:43 AST 140 H (17-59) U/L Lactate Dehydrogenase 1990 H (313-618) U/L Troponin I 0.126 H* (0.000-0.034) ng/mL Coagulation 11/10/20 Range/Units 07:43 PT 14.0 H (9.0-12.0) sec APTT 24.6 (22.0-30.0) sec CBC 11/10/20 Range/Units 07:43 WBC 45.2 H (3.8-10.6) k/uL RBC 4.00 L (4.30-5.90) m/uL Hgb 13.1 (13.0-17.5) gm/dL Hct 39.5 (39.0-53.0) % Plt Count 286 (150-450) k/uL Comprehensive Metabolic Panel 11/10/20 Range/Units 07:43 Sodium 139 (137-145) mmol/L Potassium 4.7 (3.5-5.1) mmol/L Chloride 98 (98-107) mmol/L Carbon Dioxide 30 (22-30) mmol/L BUN 41 H (9-20) mg/dL Creatinine 1.12 (0.66-1.25) mg/dL Glucose 42 L* (74-99) mg/dL Calcium 8.3 L (8.4-10.2) mg/dL AST 140 H (17-59) U/L ALT 48 (4-49) U/L Alkaline Phosphatase 217 H (38-126) U/L Total Protein 6.0 L (6.3-8.2) g/dL Albumin 2.8 L (3.5-5.0) g/dL Current Medications Generic Name Dose Route Start Last Admin Trade Name Freq PRN Reason Stop Dose Admin Acetaminophen 650 mg 11/10/20 11:28 Acetaminophen Tab 325 Mg Tab PO Q4HR PRN Fever and/or Mild Pain Albuterol/Ipratropium 3 ml 11/10/20 13:20 Ipratropium-Albuterol 3 Ml Neb INHALATION RT-Q2H PRN Shortness Of Breath Or Wheezing Albuterol/Ipratropium 3 ml 11/10/20 16:00 Ipratropium-Albuterol 3 Ml Neb INHALATION RT-QID ARSH Budesonide 1 mg 11/10/20 20:00 Budesonide 1 Mg/2 Ml Nebu INHALATION RT-BID ARSH Formoterol Fumarate 20 mcg 11/10/20 20:00 Formoterol Fumarate 20 Mcg/2 Ml Nebu INHALATION RT-BID ARSH Cefepime HCl 2 gm/ Sodium 100 mls @ 25 mls/hr 11/10/20 21:00 Chloride IVPB Q12HR ARSH Sodium Chloride 1,000 mls @ 130 mls/hr 11/10/20 08:30 11/10/20 08:33 Saline 0.9% IV 130 mls/hr .[id number] ARSH Administration Vancomycin HCl 1,000 mg/ 250 mls @ 125 mls/hr 11/10/20 21:00 Sodium Chloride IVPB Q12HR ARSH Naloxone HCl 0.2 mg 11/10/20 11:28 Naloxone 0.4 Mg/Ml 1 Ml Vial IV Q2M PRN Opioid Reversal Pantoprazole Sodium 40 mg 11/10/20 13:45 Pantoprazole 40 Mg/10 Ml Vial IVP DAILY ARSH Intake and Output 11/09/20 11/10/20 11/10/20 22:59 06:59 14:59 Other: Weight 54.1 kg Patient Weight 11/11/20 06:59 Weight 54.1 kg 11/10/20 07:43 11/10/20 07:43
--- NOTE | 2020-11-11 12:57 | P.PN ---
Subjective Progress Note Date: 11/11/20 Principal diagnosis: Shortness of breath, questionable thoracic aortic dissection on CT angiogram Seen and examined in the ICU. No acute distress noted. Denies any abdominal pain, chest pain, or pain in his back. CT angiogram of abdomen and aorta with runoff shows no evidence of abdominal aortic aneurysm or dissection. Findings on same-day CT chest comparison of the upper abdominal aorta are likely due to contrast mixing. There is a short focal dissection of the left common iliac artery. Three-vessel runoff to bilateral feet. Objective - Vital Signs Vital signs: Vital Signs Temp 97.9 F 11/11/20 08:00 Pulse 81 11/11/20 12:00 Resp 24 11/11/20 12:00 BP 102/70 11/11/20 12:00 Pulse Ox 97 11/11/20 12:00 Intake & Output 11/10/20 11/11/20 11/11/20 18:59 06:59 18:59 Intake Total 1280 710 Output Total 500 350 Balance 780 360 Weight 54.1 kg 58.7 kg Intake: IV 810 485 0.9 810 485 Intake, IV Titration 350 225 Amount Cefepime 2 gm In Sodium 100 100 Chloride 0.9% 100 ml @ 25 mls/hr IVPB Q12HR ARSH Rx #:[id number] Vancomycin 1,000 mg In 125 Sodium Chloride 0.9% 250 ml @ 125 mls/hr IVPB Q10H ARSH Rx#:[id number] Vancomycin 1,000 mg In 250 Sodium Chloride 0.9% 250 ml @ 125 mls/hr IVPB Q12HR ARSH Rx#:[id number] Oral 120 Output: Urine 500 350 Other: Voiding Method Urinal Urinal - Exam General appearance: The patient is alert, oriented, in no acute distress. HET: Head is normocephalic and atraumatic. Neck: Supple without lymphadenopathy. Trachea midline. Heart: S1 S2. Regular rate and rhythm. Lungs: Diminished. Scattered rhonchi with expiratory wheezes. Abdomen: Soft, nontender, nondistended with bowel sounds. Extremities: Normal skin color and turgor. No edema. Neurological: No focal deficits. Strength and sensation are grossly intact. - Labs CBC & Chem 7: 11/11/20 04:36 11/11/20 04:36 Labs: Abnormal Lab Results - Last 24 Hours (Table) 11/10/20 11/10/20 11/10/20 Range/Units 07:43 07:43 14:42 WBC (3.8-10.6) k/uL RBC (4.30-5.90) m/uL Hgb (13.0-17.5) gm/dL Hct (39.0-53.0) % MCV (80.0-100.0) fL PT (9.0-12.0) sec INR (<1.2) Carbon Dioxide (22-30) mmol/L BUN (9-20) mg/dL Glucose (74-99) mg/dL POC Glucose (mg/dL) (75-99) mg/dL Calcium (8.4-10.2) mg/dL Ferritin 2552.0 H (22.0-322.0) ng/mL Troponin I 0.075 H* (0.000-0.034) ng/mL Procalcitonin 13.85 H (0.02-0.09) ng/mL Ur Specific [place] (1.001-1.035) Urine Protein (Negative) Urine Ketones (Negative) 11/10/20 11/10/20 11/11/20 Range/Units 18:51 20:00 02:50 WBC (3.8-10.6) k/uL RBC (4.30-5.90) m/uL Hgb (13.0-17.5) gm/dL Hct (39.0-53.0) % MCV (80.0-100.0) fL PT (9.0-12.0) sec INR (<1.2) Carbon Dioxide (22-30) mmol/L BUN (9-20) mg/dL Glucose (74-99) mg/dL POC Glucose (mg/dL) 122 H (75-99) mg/dL Calcium (8.4-10.2) mg/dL Ferritin (22.0-322.0) ng/mL Troponin I 0.057 H* (0.000-0.034) ng/mL Procalcitonin (0.02-0.09) ng/mL Ur Specific [place] >1.050 H (1.001-1.035) Urine Protein Trace H (Negative) Urine Ketones Trace H (Negative) 11/11/20 11/11/20 11/11/20 Range/Units 04:36 04:36 10:16 WBC 33.8 H (3.8-10.6) k/uL RBC 3.51 L (4.30-5.90) m/uL Hgb 11.4 L (13.0-17.5) gm/dL Hct 35.8 L (39.0-53.0) % MCV 102.2 H (80.0-100.0) fL PT 13.2 H (9.0-12.0) sec INR 1.3 H (<1.2) Carbon Dioxide 34 H (22-30) mmol/L BUN 28 H (9-20) mg/dL Glucose 101 H (74-99) mg/dL POC Glucose (mg/dL) (75-99) mg/dL Calcium 7.8 L (8.4-10.2) mg/dL Ferritin (22.0-322.0) ng/mL Troponin I (0.000-0.034) ng/mL Procalcitonin (0.02-0.09) ng/mL Ur Specific [place] (1.001-1.035) Urine Protein (Negative) Urine Ketones (Negative) Microbiology - Last 24 Hours (Table) 11/10/20 07:59 Blood Culture - Preliminary Blood No Growth after 24 hours 11/10/20 07:43 Blood Culture - Preliminary Blood No Growth after 24 hours Assessment and Plan Assessment: 1. Dissection in the distal thoracic aorta as reported by CT angiogram of the chest 2. Acute hypoxic respiratory failure secondary to right lower lobe pneumonia and small right-sided parapneumonic effusion 3. History of coronary artery disease 4. History of COPD from prior tobacco use 5. History of angina Plan: 1. Symptomatic and supportive care 2. CTA abdomen and aorta with runoff ordered and imaging reviewed by Dr. Sanz with no evidence of thoracic or abdominal aortic aneurysm or dissection 3. Continue current medical treatment 4. There is no indication for any vascular surgical intervention, CT angiogram negative for thoracic aortic dissection or abdominal aortic aneurysm Thank you for this consultation, we will sign off at this time The impression and plan of care has been dictated as directed. Dr. Sanz I performed a history and examination of this patient, discussed the same with the dictator. I agree with the dictator's note ,documented as a scribe. Any additional findings or plans will be noted.
[2020-11-11 13:07] LABS: Anisocytosis (M) Present; Band Neutrophils % 7 %; Monocytes # (M) 1.35 k/uL (0-1.0); Myelocytes # (M) 0.34 k/uL (0); Myelocytes % 1 %; Neutrophils % (M) 88 %; Nucleated Red Blood Cells 0 /100 WBC (0-0); Poikilocytosis (M) Present; Total Cells Counted 200; Toxic Granulation Present
[2020-11-11 13:08] LABS: Toxic Vacuolation Present
--- NOTE | 2020-11-11 16:03 | P.PN ---
Subjective Progress Note Date: 11/11/20 This is 75-year-old gentleman with history of CAD, prior cardiac cath with stenting, advanced COPD/emphysema, pneumonia, skin cancer, thoracic aortic aneurysm, alcohol use and multiple other medical issues presented to the ER with complaints of worsening difficulty breathing, productive cough, chest pressure for approximately 10 days or longer. Patient reports he received both coronavirus vaccines, last one received 2 weeks ago. Denies fever or chills. Reports poor appetite. Denies nausea vomiting or diarrhea. Denies abdominal pain. Chest x-ray consistent with underlying COPD, extensive emphysema no pneumothorax, bilateral patchy airspace disease greater on the right, prominence of the pulmonary arteries consistent with underlying pulmonary artery hypertension, aortia dense and ectatic. CTA reported no evidence for acute PE, advanced emphysematous change with worsening masslike consolidation right lower lobe, small complex loculated posterior right pleural fluid collection, dissection beginning in the distal thoracic aorta just above the diaphragm extending along the course of the entire visualized portion of the abdominal aorta-type B [place] or [place]akey type III abdominal aortic dissection, 4 mm nonobstructing stone admitted to the lower pole right kidney. T-max 100.2, WBC 45.2. Hemoglobin 13.1, platelets 286 and MCV 98.8, d-dimer is 32.67, sodium 139, potassium 4.7, CO2 30, BUN 41, creatinine 1.12 ,glucose 42 on admission currently 127, lactic acid 2.8, calcium 8.3, magnesium 2 ferritin pending, total bili 0.7, AST 140 alk phos 217 ALT 48 LDH 1990, troponin 0.126, CRP 40.8, BNP 3130, ABGs noted. EKG reporting sinus tachycardia, PACs.Tested negative for coronavirus,Received vancomycin, cefepime and steroids in the ER. 11/11/2020 apparently patient wears 2-1/2 L at home and states that his had bumped his oxygen up to 4 prior to his admission. Significant weight loss reporting greater than 40 pounds in 6 months to the last year. 2 teeth broke off approximately 4 weeks ago, states he did not swallow them. Maintained on cefepime and vancomycin. Afebrile, WBC trending down, BUN 28, creatinine 0.67. Preliminary blood cultures reporting no growth at 24 hours. Hemoglobin 11.4, platelets 194. 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 Evaluated by speech therapy, scheduled for MBS, ruling out aspiration. Chest CT on admission suggestive of abdominal aortic dissection .Evaluated by vascular surgery, CTA with runoff ordered. CT angiogram of abdomen and aorta with runoff reported no evidence of abdominal aortic aneurysm or dissection, short focal dissection of left common iliac artery, 3 vessel runoff to bilateral feet. Troponin 0.126, 0.075, 0.057. Objective - Vital Signs Vital signs: Vital Signs Temp 97.9 F 11/11/20 08:00 Pulse 95 11/11/20 14:00 Resp 36 H 11/11/20 14:00 BP 104/68 11/11/20 14:00 Pulse Ox 88 L 11/11/20 14:00 Intake & Output 11/10/20 11/11/20 11/11/20 18:59 06:59 18:59 Intake Total 1280 710 Output Total 500 350 Balance 780 360 Weight 54.1 kg 58.7 kg Intake: IV 810 485 0.9 810 485 Intake, IV Titration 350 225 Amount Cefepime 2 gm In Sodium 100 100 Chloride 0.9% 100 ml @ 25 mls/hr IVPB Q12HR [facility] Rx #:[id number] Vancomycin 1,000 mg In 125 Sodium Chloride 0.9% 250 ml @ 125 mls/hr IVPB Q10H ARSH Rx#:[id number] Vancomycin 1,000 mg In 250 Sodium Chloride 0.9% 250 ml @ 125 mls/hr IVPB Q12HR ARSH Rx#:[id number] Oral 120 Output: Urine 500 350 Other: Voiding Method Urinal Urinal - Exam PHYSICAL EXAM: VITAL SIGNS: [As above] GENERAL: Sitting up in bed, increased respiratory effort with conversing HEENT: Conjunctivae normal. eyes normal. NECK: No JVD. No thyroid enlargement. No LNs CARDIOVASCULAR: S1, S2 regular. No murmur RESPIRATION: Labored, congested. Breath sounds diminished in the bases witih bibasilar crackles. ABDOMEN: Soft, nontender . No guarding. no masses palpable. Bowel sounds heard. LEGS: No edema. no swelling. No clubbing, no cyanosis. NERVOUS SYSTEM: Cranial N 2-12 grossly normal. Moves all 4 limbs. No focal deficits. Skin: Warm and dry, no rash - Labs CBC & Chem 7: 11/11/20 04:36 11/11/20 04:36 Labs: Abnormal Lab Results - Last 24 Hours (Table) 11/10/20 11/10/20 11/10/20 Range/Units 07:43 07:43 14:42 WBC (3.8-10.6) k/uL RBC (4.30-5.90) m/uL Hgb (13.0-17.5) gm/dL Hct (39.0-53.0) % MCV (80.0-100.0) fL Neutrophils # (Manual) (1.3-7.7) k/uL Monocytes # (Manual) (0-1.0) k/uL Myelocytes # (Manual) (0) k/uL PT (9.0-12.0) sec INR (<1.2) Carbon Dioxide (22-30) mmol/L BUN (9-20) mg/dL Glucose (74-99) mg/dL POC Glucose (mg/dL) (75-99) mg/dL Calcium (8.4-10.2) mg/dL Ferritin 2552.0 H (22.0-322.0) ng/mL Troponin I 0.075 H* (0.000-0.034) ng/mL Procalcitonin 13.85 H (0.02-0.09) ng/mL Ur Specific [place] (1.001-1.035) Urine Protein (Negative) Urine Ketones (Negative) 11/10/20 11/10/20 11/11/20 Range/Units 18:51 20:00 02:50 WBC (3.8-10.6) k/uL RBC (4.30-5.90) m/uL Hgb (13.0-17.5) gm/dL Hct (39.0-53.0) % MCV (80.0-100.0) fL Neutrophils # (Manual) (1.3-7.7) k/uL Monocytes # (Manual) (0-1.0) k/uL Myelocytes # (Manual) (0) k/uL PT (9.0-12.0) sec INR (<1.2) Carbon Dioxide (22-30) mmol/L BUN (9-20) mg/dL Glucose (74-99) mg/dL POC Glucose (mg/dL) 122 H (75-99) mg/dL Calcium (8.4-10.2) mg/dL Ferritin (22.0-322.0) ng/mL Troponin I 0.057 H* (0.000-0.034) ng/mL Procalcitonin (0.02-0.09) ng/mL Ur Specific [place] >1.050 H (1.001-1.035) Urine Protein Trace H (Negative) Urine Ketones Trace H (Negative) 11/11/20 11/11/20 11/11/20 Range/Units 04:36 04:36 10:16 WBC 33.8 H (3.8-10.6) k/uL RBC 3.51 L (4.30-5.90) m/uL Hgb 11.4 L (13.0-17.5) gm/dL Hct 35.8 L (39.0-53.0) % MCV 102.2 H (80.0-100.0) fL Neutrophils # (Manual) 32.10 H (1.3-7.7) k/uL Monocytes # (Manual) 1.35 H (0-1.0) k/uL Myelocytes # (Manual) 0.34 H (0) k/uL PT 13.2 H (9.0-12.0) sec INR 1.3 H (<1.2) Carbon Dioxide 34 H (22-30) mmol/L BUN 28 H (9-20) mg/dL Glucose 101 H (74-99) mg/dL POC Glucose (mg/dL) (75-99) mg/dL Calcium 7.8 L (8.4-10.2) mg/dL Ferritin (22.0-322.0) ng/mL Troponin I (0.000-0.034) ng/mL Procalcitonin (0.02-0.09) ng/mL Ur Specific [place] (1.001-1.035) Urine Protein (Negative) Urine Ketones (Negative) Microbiology - Last 24 Hours (Table) 11/10/20 07:59 Blood Culture - Preliminary Blood No Growth after 24 hours 11/10/20 07:43 Blood Culture - Preliminary Blood No Growth after 24 hours Assessment and Plan Assessment: Acute on chronic hypoxic respiratory failure, secondary to right lower lobe pneumonia and small right-sided parapneumonic effusion. Reports he normally wears 2-1/2 L at home. Possible aspiration pneumonia, MDS pending Bilateral lower extremity acute DVTs No PE , reported per CT Elevated troponin, suspect related to hypoxia, acute coronary syndrome ruled out as per cardiology Paroxysmal atrial fibrillation, new onset Significant weight loss of 40 pounds in the last 6-12 months, reported Hoarse voice X 1 yr, reports he previously had fungal infection of the vocal cords Hemoptysis Advanced emphysema, COPD Chronic hypoxic, hypercapnic respiratory failure on home O2 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 History of angina pectoris CAD with history of stenting Pulmonary hypertension Hyperlipidemia History of SVT Gastroesophageal reflux disease Alcohol use History of skin cancer Former nicotine dependence 4 mm right kidney nonobstructing stone per CTA Plan: Continue current medication regime ,monitoring and symptomatic treatment. maintain IV antibiotics, nebulized bronchodilators, steroids, PPI. Heparin drip for bilateral lower extremity DVTs .ENT consulted regarding hoarseness and rep orts fungal infection of focal cords previously.MBS as per speech therapy to rule out aspiration. GI consulted-multifactorial weight loss, fobt pending. Vascular surgery recommendations noted and appreciated. Antiarrhythmics as per cardiology. PT/OT consult in place, recommendations pending-patient would benefit from subacute rehab at discharge. Prognosis guarded given multiple complex medical issues. The impression and plan of care has been dictated as directed. : I performed a history and examination of this patient, discussed the same with the dictator. I agree with the dictator's note ,documented as a scribe. Any additional findings or plans will be noted.
[2020-11-11] MEDS: atenoloL 25 MG TAB PO SCH (16:05)
[2020-11-11] MEDS ORDERED: PETROLATUM, WHITE OINT 50 GM TUBE TOPICAL PRN (19:47)
[2020-11-11 20:41] LABS: Glucose,Whole Blood 116 mg/dL (75-99)
[2020-11-12] MEDS: SODIUM CHLORIDE 0.9% 1,000 ML IV SCH ×2 (03:48→16:47)
[2020-11-12] MEDS: VANCOMYCIN 1,000 MG in SODIUM CHLORIDE 0.9% 250 ML IVPB SCH ×2 (05:34→19:34)
[2020-11-12] MEDS: methylPREDNISolone SOD SUCCI 125 MG/2 ML VIAL IV SCH ×4 (05:34→23:47)
[2020-11-12 06:18] LABS: Glucose,Whole Blood 119 mg/dL (75-99)
[2020-11-12] MEDS: IPRATROPIUM-ALBUTEROL 3 ML NEB INHALATION SCH (08:00)
[2020-11-12] MEDS: FORMOTEROL FUMARATE 20 MCG/2 ML NEBU INHALATION SCH (08:00)
[2020-11-12] MEDS: BUDESONIDE 1 MG/2 ML NEBU INHALATION SCH (08:00)
[2020-11-12] MEDS: CEFEPIME 2 GM in SODIUM CHLORIDE 0.9% 100 ML IVPB SCH ×3 (09:14→23:47)
[2020-11-12] MEDS: PANTOPRAZOLE 40 MG/10 ML VIAL IVP SCH (09:15)
[2020-11-12] MEDS: atenoloL 25 MG TAB PO SCH (09:15)
[2020-11-12] MEDS ORDERED: ALBUTEROL HFA INHALER INHALATION PRN (09:26)
[2020-11-12] MEDS: TIOTROPIUM 2.5 MCG INHALER INHALATION SCH (09:30)
[2020-11-12] MEDS: SYMBICORT 160-4.5 MCG INHALER INHALATION SCH ×2 (09:30→19:48)
[2020-11-12] MEDS: ALBUTEROL HFA INHALER INHALATION SCH ×4 (09:30→19:48)
--- NOTE | 2020-11-12 10:18 | XR ---
EXAMINATION TYPE: XR chest 1V portable DATE OF EXAM: 11/12/2020 COMPARISON: Chest x-ray 11/11/2020 HISTORY: Abnormal chest x-ray, pneumonia TECHNIQUE: Single frontal view of the chest is obtained. FINDINGS: Findings are similar to prior exam. There is underlying emphysema. Cardiac mediastinal angel houette is unchanged. There are overlying artifacts. IMPRESSION: Correlate for pneumonia.
[2020-11-12 10:24] LABS: African American GFR (CKD) >90 (>60 ml/min/1.73 sqM); Anion Gap 5 mmol/L; Blood Urea Nitrogen 25 mg/dL (9-20); Calcium 7.9 mg/dL (8.4-10.2); Carbon Dioxide 26 mmol/L (22-30); Chloride 111 mmol/L (98-107); Glucose 131 mg/dL (74-99); Non-African American GFR(CKD) >90 (>60 ml/min/1.73 sqM); Potassium 3.9 mmol/L (3.5-5.1); Sodium 142 mmol/L (137-145)
[2020-11-12 10:50] LABS: HCT 35.4 % (39.0-53.0); HGB 10.7 gm/dL (13.0-17.5); Hypochromasia Marked; MCH 31.5 pg (25.0-35.0); MCHC 30.3 g/dL (31.0-37.0); MCV 103.8 fL (80.0-100.0); Macrocytosis Slight; Mean Platelet Volume 11.3; Platelet Count 190 k/uL (150-450); RBC 3.41 m/uL (4.30-5.90); RDW 13.3 % (11.5-15.5); WBC 29.6 k/uL (3.8-10.6)
--- NOTE | 2020-11-12 11:31 | P.PN ---
Subjective HISTORY OF PRESENTING ILLNESS This is a pleasant 75-year-old male past medical history significant for hypertension, coronary artery disease s/p stenting mid RCA in 2008, dyslipidemia, peripheral vascular disease, SVT, nicotine dependence, COPD. He follows in the office with Dr. Scales. We have been asked to see in consultation for elevated troponin. Patient admitted to the Intensive Care Unit. Patient presents to the emergency department in respiratory distress. He received his second coronavirus vaccine about 2 weeks ago. Continued to have progressively worsening shortness of breath, cough, and difficulty breathing. He also endorses significant weight loss over the past couple months. Also having significant night sweats at home. Chest x-ray revealed Bilateral patchy infiltrates present greater on the right, prominent lung volumes consistent with underlying COPD. CT chest revealed type B chano or Debakey type III abdominal aortic dissection, worsening mass like consolidation in the RLL, small posterior right pleural fluid collection, negative for PE. CTA abdomen w/ Runoff revealed - No evidence of abdominal aortic aneurysm or dissection. Current home cardiac medications include aspirin 81mg daily, atorvastatin 10mg nightly, atenolol 25mg Q48hr. On prednisone 20mg daily. 11/12 Patient seen and examined. Patient went into Afib with RVR with HR's 140-160's yesterday at arouund 1PM for around 30 mins. He denies any symptoms at the time of chest pain or worsened SOB. He admits that he has a history of Afib previously and was evaluated in the hospital some time back. Currently back in sinus rhythm. Admits he is feeling somewhat better today in terms of his SOB, no CP. REVIEW OF SYSTEMS At the time of my exam: CONSTITUTIONAL: +night sweats, +weight loss, Denies fever or chills. CARDIOVASCULAR: +shortness of breath, Denies chest pain orthopnea, PND or palpitations. RESPIRATORY: + cough. GASTROINTESTINAL: Denies abdominal pain, diarrhea, constipation, nausea or vomiting. MUSCULOSKELETAL: Denies myalgias. NEUROLOGIC: Denies numbness, tingling, headacbe or weakness. ENDOCRINE: +weight change, +fatigue Denies polydipsia or polyurina. GENITOURINARY: Denies burning, hematuria or urgency with micturation. HEMATOLOGIC: Denies history of anemia or bleeding. PHYSICAL EXAMINATION Vital signs reviewed CONSTITUTIONAL: Chronically ill appearing, frail, hoarse HEENT: Head is normocephalic. Pupils are equal, round. Sclerae anicteric. Mucous membranes of the mouth are moist. No JVD. No carotid bruit. CHEST EXAMINATION: Lungs diminished throughout, with diffuse rhonchi and crackles bilaterally, some expiratory wheezing . No chest wall tenderness is noted on palpation or with deep breathing. HEART EXAMINATION: Regular rate and rhythm. S1, S2 heard. No murmurs, gallops or rub. ABDOMEN: Soft, nontender. Positive bowel sounds. EXTREMITIES: 2+ peripheral pulses, no lower extremity edema and no calf tendern ess. SKIN: intact NEUROLOGIC EXAMINATION: Patient is awake, alert and oriented x3. ASSESSMENT Acute Hypoxic respiratory failure - possibly related to pneumonia Elevated Troponin - 0.12-->0.07-->0.05, most likely related to hypoxia and not acute coronary syndrome, EKG with no evidence of ischemia, patient denies chest discomfort New Bilateral lower extremity Deep vein thrombosis Coronary artery disease s/p stenting mid RCA in 2008 History of Hypertension Dyslipidemia History of SVT COPD Paroxysmal Afib (known per patient), currently sinus rhythm Weight loss, failure to thrive with lung consolidation, rule out cancer vs pneumonia PLAN Continue with IM, pulmonary workup of weight loss hoareness treatment of pneumonia Brief Afib which is known per patient. He was asymptomatic although if longer duration he would likely be more symptomatic. We will continue with Atenolol for rate control as his BP is borderline. Anticoagulation for DVT as well as for Afib. No further recommendations from cardiology. Please call with questions. Objective - Vital Signs Vital signs: Vital Signs Temp 96.9 F L 11/12/20 08:00 Pulse 71 11/12/20 08:00 Resp 20 11/12/20 08:00 BP 106/68 11/12/20 08:00 Pulse Ox 90 L 11/12/20 08:00 Intake & Output 11/11/20 11/12/20 11/12/20 18:59 06:59 18:59 Intake Total 1336.427 547.466 125 Output Total 600 325 Balance 736.427 222.466 125 Weight 62.5 kg Intake: IV 635 0.9 635 Intake, IV Titration 701.427 67.466 Amount Cefepime 2 gm In Sodium 100 Chloride 0.9% 100 ml @ 25 mls/hr IVPB Q12HR [facility] Rx #:[id number] Cefepime 2 gm In Sodium 100 Chloride 0.9% 100 ml @ 25 mls/hr IVPB Q8HR [facility] Rx# :[id number] Heparin Sod,Pork in 0.45% 76.427 67.466 NaCl 25,000 unit In 0.45 % NaCl 1 250ml.bag @ 18 UNITS/KG/HR 10.566 mls/hr IV .[id number] [facility] Rx#: [id number] Sodium Chloride 0.9% 1, 300 000 ml @ 75 mls/hr IV . [id number] [facility] Rx#:[id number] Vancomycin 1,000 mg In 125 Sodium Chloride 0.9% 250 ml @ 125 mls/hr IVPB Q10H [facility] Rx#:[id number] Oral 480 125 Output: Urine 600 325 Other: Voiding Method Urinal Urinal # Voids 1 - Labs CBC & Chem 7: 11/12/20 08:33 11/12/20 08:33 Labs: Abnormal Lab Results - Last 24 Hours (Table) 11/11/20 11/11/20 11/11/20 Range/Units 04:36 10:16 17:17 WBC (3.8-10.6) k/uL RBC (4.30-5.90) m/uL Hgb (13.0-17.5) gm/dL Hct (39.0-53.0) % MCV (80.0-100.0) fL MCHC (31.0-37.0) g/dL Neutrophils # (Manual) 32.10 H (1.3-7.7) k/uL Monocytes # (Manual) 1.35 H (0-1.0) k/uL Myelocytes # (Manual) 0.34 H (0) k/uL PT 13.2 H (9.0-12.0) sec INR 1.3 H (<1.2) APTT 70.7 H (22.0-30.0) sec Chloride (98-107) mmol/L BUN (9-20) mg/dL Creatinine (0.66-1.25) mg/dL Glucose (74-99) mg/dL POC Glucose (mg/dL) (75-99) mg/dL Calcium (8.4-10.2) mg/dL 11/11/20 11/12/20 11/12/20 Range/Units 20:40 00:58 06:14 WBC (3.8-10.6) k/uL RBC (4.30-5.90) m/uL Hgb (13.0-17.5) gm/dL Hct (39.0-53.0) % MCV (80.0-100.0) fL MCHC (31.0-37.0) g/dL Neutrophils # (Manual) (1.3-7.7) k/uL Monocytes # (Manual) (0-1.0) k/uL Myelocytes # (Manual) (0) k/uL PT (9.0-12.0) sec INR (<1.2) APTT 114.8 H* (22.0-30.0) sec Chloride (98-107) mmol/L BUN (9-20) mg/dL Creatinine (0.66-1.25) mg/dL Glucose (74-99) mg/dL POC Glucose (mg/dL) 116 H 119 H (75-99) mg/dL Calcium (8.4-10.2) mg/dL 11/12/20 11/12/20 11/12/20 Range/Units 08:33 08:33 08:33 WBC 29.6 H (3.8-10.6) k/uL RBC 3.41 L (4.30-5.90) m/uL Hgb 10.7 L (13.0-17.5) gm/dL Hct 35.4 L (39.0-53.0) % MCV 103.8 H (80.0-100.0) fL MCHC 30.3 L (31.0-37.0) g/dL Neutrophils # (Manual) (1.3-7.7) k/uL Monocytes # (Manual) (0-1.0) k/uL Myelocytes # (Manual) (0) k/uL PT (9.0-12.0) sec INR (<1.2) APTT 65.2 H (22.0-30.0) sec Chloride 111 H (98-107) mmol/L BUN 25 H (9-20) mg/dL Creatinine 0.56 L (0.66-1.25) mg/dL Glucose 131 H (74-99) mg/dL POC Glucose (mg/dL) (75-99) mg/dL Calcium 7.9 L (8.4-10.2) mg/dL Microbiology - Last 24 Hours (Table) 11/10/20 07:59 Blood Culture - Preliminary Blood No Growth after 48 hours 11/10/20 07:43 Blood Culture - Preliminary Blood No Growth after 48 hours 11/11/20 11:20 Gram Stain - Preliminary Sputum Sputum Culture - Preliminary
[2020-11-12 12:10] LABS: Glucose,Whole Blood 145 mg/dL (75-99)
--- NOTE | 2020-11-12 12:56 | P.CONS ---
History of Present Illness - Reason for Consult Consult date: 11/12/20 Unintentional weight loss Requesting physician: Fritz Ibarra Jr - Chief Complaint Shortness of breath, cough - History of Present Illness 75-year-old male with multiple medical comorbidities including coronary disease with prior cardiac catheterization with stenting, paroxysmal atrial fibrillation, history of COPD on home oxygen therapy who presented to the hospital with complaints of worsening shortness of breath and cough. Patient currently on 6 L nasal cannula. Patient is being treated for paroxysmal atrial fibrillation as well as DVT and suspected pneumonia possibly secondary to aspiration. GI was called due to patient's reports of weight loss. Patient re ports weight loss over the past year which she attributes due to loss of appetite. He denies any difficulty swallowing at this time but previously has been evaluated for intermittent dysphagia on 04/2019 with findings of antral gastritis. Last colonoscopy in 2014 was normal. He denies any signs or symptoms of GI bleeding. There is concern for possible aspiration pneumonia and a modified barium swallow has been ordered. Stool testing was negative for occult blood. Other laboratory evaluation significant for hemoglobin 11.4, platelet count 194,000, total bilirubin 0.7, alkaline phosphatase 217, AST 140 and ALT 48. Review of Systems REVIEW OF SYSTEMS: CONSTITUTIONAL: Denies any fevers, chills, but has reported at least 40 pounds of weight loss in the past year. CARDIOVASCULAR: Denies any chest pain, palpitations high or low blood pressures, however patient did have paroxysmal atrial fibrillation hospitalized. RESPIRATORY: The patient has had worsening shortness of breath with associated cough and sputum production.. GENITOURINARY: No dysuria or hematuria. MUSCULOSKELETAL: No weakness reported. SKIN: Denies any new rashes or lesions, jaundice or pallor. PSYCHIATRIC: Denies any depression or anxiety. NEUROLOGY: Denies headache, denies any new focal deficits. EARS/NOSE/THROAT: No recent hearing change, congestion, nasal discharge or sore throat. EYES: No pain in eyes, discharge or change in vision. GASTROINTESTINAL: As per HPI. 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, PT STATED HE HAS ENLARGED AORTA(PER CT SCAN -THORACIC AORTIC ANEURYSM 4.2 CM), "HOARSNESS", History of Any Multi-Drug Resistant Organisms: None Reported Past Surgical History: Adenoidectomy, Appendectomy, Heart Catheterization With Stent, Hernia Repair, Orthopedic Surgery, Tonsillectomy Additional Past Surgical History / Comment(s): LET ROTATOR CUFF REPAIR,ANAL FISTULA REPAIR, EGD/COLONOSCOPY,MULTIPLE BASAL CELL 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,AGUILAR INGUINAL HERNIA REPAIR.RIGHT SHOULDER SURGERY X2 Past Anesthesia/Blood Transfusion Reactions: No Reported Reaction Date of Last Stent Placement:: 2005 Past Psychological History: No Psychological Hx Reported Past Alcohol Use History: Occasional Past Drug Use History: None Reported - Past Family History Father Family Medical History: Cancer Additional Family Medical History / Comment(s): TESTICULAR, BONE Mother Family Medical History: Cancer Additional Family Medical History / Comment(s): BONE Medications and Allergies Home Medications Medication Instructions Recorded Confirmed Type Aspirin EC [Ecotrin Low Dose] 81 mg PO HS 07/21/16 11/10/20 History Tiotropium Br/Olodaterol HCl 2 puff INHALATION RT-DAILY 05/14/19 11/10/20 Histor y [Stiolto Respimat Inhal [place]] Omeprazole 20 mg PO BID 06/13/19 11/10/20 History Vitamin B Complex 1 cap PO DAILY 06/13/19 11/10/20 History Cyclobenzaprine [Flexeril] 10 mg PO TID PRN 08/30/19 11/10/20 History Atorvastatin [Lipitor] 10 mg PO HS 07/17/20 11/10/20 History L.acidoph,Paracasei, B.lactis 1 cap PO DAILY 07/17/20 11/10/20 History [Probiotic] atenoloL [Atenolol] 25 mg PO Q48H 07/17/20 11/10/20 History predniSONE 20 mg PO DAILY 07/17/20 11/10/20 History Fluticasone/Vilanterol [Breo 1 puff INHALATION RT-DAILY 11/10/20 11/10/20 History Ellipta 200-25 Mcg INH] Hydrocodone/Acetaminophen [[place] 1 tab PO Q6H PRN 11/10/20 11/10/20 History 10-325] Multivit-Min/FA/Lycopen/Lutein 1 tab PO DAILY 11/10/20 11/10/20 History [Centrum Silver Men Tablet] Allergies Allergy/AdvReac Type Severity Reaction Status Date / Time No Known Allergies Allergy Verified 11/10/20 08:55 Physical Exam Vitals: Vital Signs Temp Pulse Pulse Resp BP BP Pulse Ox 11/12/20 04:00 97.6 F 69 18 98/61 99 11/12/20 00:00 97.4 F L 70 18 96/60 98 11/11/20 20:00 98.4 F 71 20 95/61 98 11/11/20 19:50 80 11/11/20 19:34 82 11/11/20 19:33 80 11/11/20 19:14 78 11/11/20 16:00 98.0 F 88 23 97/63 97 11/11/20 15:20 90 25 H 96 11/11/20 15:00 89 25 H 97/71 99 11/11/20 14:40 90 26 H 104/68 98 11/11/20 14:00 95 36 H 104/68 88 L 11/11/20 13:30 160 H 23 11/11/20 13:00 95 21 102/70 87 L 11/11/20 12:30 28 H 102/70 89 L 11/11/20 12:00 81 24 102/70 97 11/11/20 11:48 80 11/11/20 11:40 84 11/11/20 11:00 82 16 91 L Intake and Output 11/11/20 11/12/20 11/12/20 22:59 06:59 14:59 Intake Total 956.427 67.466 125 Output Total 100 225 Balance 856.427 -157.534 125 Intake: IV 75 0.9 75 Intake, IV Titration 401.427 67.466 Amount Cefepime 2 gm In Sodium 100 Chloride 0.9% 100 ml @ 25 mls/hr IVPB Q8HR [facility] Rx# :[id number] Heparin Sod,Pork in 0.45% 76.427 67.466 NaCl 25,000 unit In 0.45 % NaCl 1 250ml.bag @ 18 UNITS/KG/HR 10.566 mls/hr IV .[id number] [facility] Rx#: [id number] Sodium Chloride 0.9% 1, 225 000 ml @ 75 mls/hr IV . [id number] [facility] Rx#:[id number] Oral 480 125 Output: Urine 100 225 Other: Voiding Method Urinal Urinal # Voids 1 1 Weight 62.5 kg On physical examination, patient appears comfortable in no apparent distress. HEAD: Normocephalic, atraumatic. EYES: No scleral icterus. No conjunctival injection. MOUTH: No lesions, tongue midline. NECK: Trachea midline, no gross abnormalities. CHEST: Decreased air entry in all lung souza. HEART: S1-S2 appreciated. ABDOMEN: Soft, thin and nontender to palpation. Bowel sounds are positive. No organomegaly. No guarding or rigidity. EXTREMITIES: No pedal edema. SKIN: No rashes, no jaundice. NEUROLOGIC: Alert and oriented x3. No focal deficits. Results CBC & Chem 7: 11/12/20 08:33 11/12/20 08:33 Labs: Abnormal Lab Results - Last 24 Hours (Table) 11/11/20 11/11/20 11/11/20 Range/Units 04:36 10:16 17:17 WBC 33.8 H (3.8-10.6) k/uL RBC 3.51 L (4.30-5.90) m/uL Hgb 11.4 L (13.0-17.5) gm/dL Hct 35.8 L (39.0-53.0) % MCV 102.2 H (80.0-100.0) fL Neutrophils # (Manual) 32.10 H (1.3-7.7) k/uL Monocytes # (Manual) 1.35 H (0-1.0) k/uL Myelocytes # (Manual) 0.34 H (0) k/uL PT 13.2 H (9.0-12.0) sec INR 1.3 H (<1.2) APTT 70.7 H (22.0-30.0) sec POC Glucose (mg/dL) (75-99) mg/dL 11/11/20 11/12/20 11/12/20 Range/Units 20:40 00:58 06:14 WBC (3.8-10.6) k/uL RBC (4.30-5.90) m/uL Hgb (13.0-17.5) gm/dL Hct (39.0-53.0) % MCV (80.0-100.0) fL Neutrophils # (Manual) (1.3-7.7) k/uL Monocytes # (Manual) (0-1.0) k/uL Myelocytes # (Manual) (0) k/uL PT (9.0-12.0) sec INR (<1.2) APTT 114.8 H* (22.0-30.0) sec POC Glucose (mg/dL) 116 H 119 H (75-99) mg/dL Microbiology - Last 24 Hours (Table) 11/11/20 11:20 Gram Stain - Preliminary Sputum Sputum Culture - Preliminary 11/10/20 07:59 Blood Culture - Preliminary Blood No Growth after 24 hours 11/10/20 07:43 Blood Culture - Preliminary Blood No Growth after [address] scan - abdomen: report reviewed (Computed tomography scan of the abdomen with no evidence of bowel obstruction or thickening of the colon, diverticulosis noted with no acute diverticulitis and a moderate amount of fecal debris in the ascending colon.) Assessment and Plan (1) Difficulty swallowing Narrative/Plan: 75-year-old male with multiple medical comorbidities currently receiving treatment for DVT, worsening shortness of breath with possible aspiration pneumonia and paroxysmal atrial fibrillation. Patient denies any abdominal pain, signs or symptoms of GI bleeding. He does report weight loss and association with decreased oral intake over the past year. Previously patient underwent EGD in 04/2019 for intermittent dysphagia with findings of antral gastritis and colonoscopy in 2014 with normal colon. Stool testing for occult blood negative. Patient has had loss of his voice to some extent and there is also concern for possible aspiration with plan for modified barium swallow. Current Visit: Yes Status: Acute Code(s): R13.10 - DYSPHAGIA, UNSPECIFIED SNOMED Code(s): 42511632 (2) Leukocytosis Current Visit: Yes Status: Acute Code(s): D72.829 - ELEVATED WHITE BLOOD CELL COUNT, UNSPECIFIED SNOMED Code(s): 460304712 (3) Sepsis due to pneumonia Current Visit: Yes Status: Acute Code(s): J18.9 - PNEUMONIA, UNSPECIFIED ORGANISM; A41.9 - SEPSIS, UNSPECIFIED ORGANISM SNOMED Code(s): 87472525 Plan: Supportive care Okay for diet as tolerated at this time with aspiration precautions Await findings from modified barium swallow EGD from 2018 and colonoscopy from 2014 reviewed, no plan for endoscopic evaluation at this time with no worrisome features on computed tomography scan of the abdomen and given the patient's current respiratory status Continue other medical management as per primary team and consulting services Thank you for allowing us to participate in the care of the patient we will continue to follow
[2020-11-12] MEDS ORDERED: Magnesium Replacement Protocol 1 EACH MISC MISCELLANE PRN (13:23)
--- NOTE | 2020-11-12 13:47 | P.PN ---
Subjective Progress Note Date: 11/12/20 This is 75-year-old gentleman with history of CAD, prior cardiac cath with stenting, advanced COPD/emphysema, pneumonia, skin cancer, thoracic aortic aneurysm, alcohol use and multiple other medical issues presented to the ER with complaints of worsening difficulty breathing, productive cough, chest pressure for approximately 10 days or longer. Patient reports he received both coronavirus vaccines, last one received 2 weeks ago. Denies fever or chills. Reports poor appetite. Denies nausea vomiting or diarrhea. Denies abdominal pain. Chest x-ray consistent with underlying COPD, extensive emphysema no pneumothorax, bilateral patchy airspace disease greater on the right, prominence of the pulmonary arteries consistent with underlying pulmonary artery hypertension, aortia dense and ectatic. 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 T-max 100.2, WBC 45.2. Hemoglobin 13.1, platelets 286 and MCV 98.8, d-dimer is 32.67, sodium 139, potassium 4.7, CO2 30, BUN 41, creatinine 1.12 ,glucose 42 on admission currently 127, lactic acid 2.8, calcium 8.3, magnesium 2 ferritin pending, total bili 0.7, AST 140 alk phos 217 ALT 48 LDH 1990, troponin 0.126, CRP 40.8, BNP 3130, ABGs noted. EKG reporting sinus tachycardia, PACs.Tested negative for coronavirus,Received vancomycin, cefepime and steroids in the ER. 11/11/2020 apparently patient wears 2-1/2 L at home and states that his had bumped his oxygen up to 4 prior to his admission. Significant weight loss reporting greater than 40 pounds in 6 months to the last year. 2 teeth broke off approximately 4 weeks ago, states he did not swallow them. Maintained on cefepime and vancomycin. Afebrile, WBC trending down, BUN 28, creatinine 0.67. Preliminary blood cultures reporting no growth at 24 hours. Hemoglobin 11.4, platelets 194. 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 Evaluated by speech therapy, scheduled for MBS, ruling out aspiration. Chest CT on admission suggestive of abdominal aortic dissection .Evaluated by vascular surgery, CTA with runoff ordered. CT angiogram of abdomen and aorta with runoff reported no evidence of abdominal aortic aneurysm or dissection, short focal dissection of left common iliac artery, 3 vessel runoff to bilateral feet. Troponin 0.126, 0.075, 0.057. 11/12/2020 transferred out of ICU yesterday to telemetry unit .Yesterday developed a brief episode of asymptomatic paroximal atrial fibrillation with RVR with heart rate up into the 160s and converted back to sinus rhythm. Maintained on beta anastacio. oxygen requirements mildly worsened requiring high flow 6 L nasal cannula maintaining O2 sats in the low 90s. Chest x-ray reporting similar to prior, underlying emphysema. Hemoglobin trending down down to 10.7, platelets 190. Stool for occult blood negative. Evaluated by GI with recommendations noted and appreciated including EGD and colonoscopy once respiratory status stabilizes. Maintained on antibiotics, nebulized bronchodilators and steroids. Blood sugars controlled. blood cultures and sputum culture finalizing. Afebrile, WBC trending down to 29.6. Objective - Vital Signs Vital signs: Vital Signs Temp 97.8 F 11/12/20 12:10 Pulse 74 11/12/20 12:10 Resp 20 11/12/20 12:10 BP 100/56 11/12/20 12:10 Pulse Ox 91 L 11/12/20 12:10 Intake & Output 11/11/20 11/12/20 11/12/20 18:59 06:59 18:59 Intake Total 1336.427 547.466 125 Output Total 600 325 Balance 736.427 222.466 125 Weight 62.5 kg Intake: IV 635 0.9 635 Intake, IV Titration 701.427 67.466 Amount Cefepime 2 gm In Sodium 100 Chloride 0.9% 100 ml @ 25 mls/hr IVPB Q12HR [facility] Rx #:[id number] Cefepime 2 gm In Sodium 100 Chloride 0.9% 100 ml @ 25 mls/hr IVPB Q8HR [facility] Rx# :[id number] Heparin Sod,Pork in 0.45% 76.427 67.466 NaCl 25,000 unit In 0.45 % NaCl 1 250ml.bag @ 18 UNITS/KG/HR 10.566 mls/hr IV .[id number] [facility] Rx#: [id number] Sodium Chloride 0.9% 1, 300 000 ml @ 75 mls/hr IV . [id number] [facility] Rx#:[id number] Vancomycin 1,000 mg In 125 Sodium Chloride 0.9% 250 ml @ 125 mls/hr IVPB Q10H [facility] Rx#:[id number] Oral 480 125 Output: Urine 600 325 Other: Voiding Method Urinal Urinal # Voids 1 - Exam PHYSICAL EXAM: VITAL SIGNS: [As above] GENERAL: Alert and oriented 3, Sitting up in bed, NAD, hoarse, increased respiratory effort HEENT: Conjunctivae normal. eyes normal. NECK: Supple, No JVD. CARDIOVASCULAR: S1, S2 regular. No murmur, gallops or rubs RESPIRATION: Congested. Breath sounds diminished in the bases witih scattered rhonchi, bibasilar crackles, occasional expiratory wheeze. ABDOMEN: Soft, nontender . No guarding. no masses palpable. Bowel sounds heard. LEGS: No edema. no swelling. No clubbing, no cyanosis. NERVOUS SYSTEM: Cranial N 2-12 grossly normal. Moves all 4 limbs. No focal deficits. Skin: Warm and dry, no rash - Labs CBC & Chem 7: 11/12/20 08:33 11/12/20 08:33 Labs: Abnormal Lab Results - Last 24 Hours (Table) 11/11/20 11/11/20 11/11/20 Range/Units 04:36 17:17 20:40 WBC (3.8-10.6) k/uL RBC (4.30-5.90) m/uL Hgb (13.0-17.5) gm/dL Hct (39.0-53.0) % MCV (80.0-100.0) fL MCHC (31.0-37.0) g/dL Neutrophils # (Manual) 32.10 H (1.3-7.7) k/uL Monocytes # (Manual) 1.35 H (0-1.0) k/uL Myelocytes # (Manual) 0.34 H (0) k/uL APTT 70.7 H (22.0-30.0) sec Chloride (98-107) mmol/L BUN (9-20) mg/dL Creatinine (0.66-1.25) mg/dL Glucose (74-99) mg/dL POC Glucose (mg/dL) 116 H (75-99) mg/dL Calcium (8.4-10.2) mg/dL 11/12/20 11/12/20 11/12/20 Range/Units 00:58 06:14 08:33 WBC (3.8-10.6) k/uL RBC (4.30-5.90) m/uL Hgb (13.0-17.5) gm/dL Hct (39.0-53.0) % MCV (80.0-100.0) fL MCHC (31.0-37.0) g/dL Neutrophils # (Manual) (1.3-7.7) k/uL Monocytes # (Manual) (0-1.0) k/uL Myelocytes # (Manual) (0) k/uL APTT 114.8 H* (22.0-30.0) sec Chloride 111 H (98-107) mmol/L BUN 25 H (9-20) mg/dL Creatinine 0.56 L (0.66-1.25) mg/dL Glucose 131 H (74-99) mg/dL POC Glucose (mg/dL) 119 H (75-99) mg/dL Calcium 7.9 L (8.4-10.2) mg/dL 11/12/20 11/12/20 11/12/20 Range/Units 08:33 08:33 11:59 WBC 29.6 H (3.8-10.6) k/uL RBC 3.41 L (4.30-5.90) m/uL Hgb 10.7 L (13.0-17.5) gm/dL Hct 35.4 L (39.0-53.0) % MCV 103.8 H (80.0-100.0) fL MCHC 30.3 L (31.0-37.0) g/dL Neutrophils # (Manual) (1.3-7.7) k/uL Monocytes # (Manual) (0-1.0) k/uL Myelocytes # (Manual) (0) k/uL APTT 65.2 H (22.0-30.0) sec Chloride (98-107) mmol/L BUN (9-20) mg/dL Creatinine (0.66-1.25) mg/dL Glucose (74-99) mg/dL POC Glucose (mg/dL) 145 H (75-99) mg/dL Calcium (8.4-10.2) mg/dL Microbiology - Last 24 Hours (Table) 11/10/20 07:59 Blood Culture - Preliminary Blood No Growth after 48 hours 11/10/20 07:43 Blood Culture - Preliminary Blood No Growth after 48 hours 11/11/20 11:20 Gram Stain - Preliminary Sputum Sputum Culture - Preliminary Assessment and Plan Assessment: Acute on chronic hypoxic respiratory failure, secondary to right lower lobe pneumonia and small right-sided parapneumonic effusion. Reports he normally wears 2-1/2 L at home. 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 History of angina pectoris CAD with history of stenting Pulmonary hypertension Hyperlipidemia History of SVT Gastroesophageal reflux disease Alcohol use History of basal cell skin cancer Former nicotine dependence 4 mm right kidney nonobstructing stone per CTA Osteoporosis Plan: Continue current medication regime ,monitoring and symptomatic treatment. Strict aspiration precautions. Continue IV antibiotics, nebulized bronchodilators, steroids, PPI. Anticoagulated on Heparin drip for bilateral lower extremity DVTs .MBS PENDING. PT/OT recommendations pending-patient would benefit from subacute rehab at discharge. Possible outpatient EGD/colonoscopy. ENT recommended patient follow-up palpation. Prognosis guarded given multiple complex medical issues. The impression and plan of care has been dictated as directed. : I performed a history and examination of this patient, discussed the same with the dictator. I agree with the dictator's note ,documented as a scribe. Any additional findings or plans will be noted.
[2020-11-12 14:18] LABS: Band Neutrophils % 4 %; Lymphocytes # (M) 0.89 k/uL (1.0-4.8); Monocytes # (M) 0.59 k/uL (0-1.0); Myelocytes % 1 %; Neutrophils % (M) 91 %; Nucleated Red Blood Cells 0 /100 WBC (0-0); Total Cells Counted 200
[2020-11-12 17:15] LABS: Glucose,Whole Blood 115 mg/dL (75-99)
--- NOTE | 2020-11-12 17:27 | P.PN ---
Subjective Progress Note Date: 11/12/20 Principal diagnosis: Acute on chronic hypoxic respiratory failure secondary to Acute right lower lobe pneumonia, community-acquired. Possible aspiration pneumonia. And secondary to underlying COPD FEV1 of 22% 75-year-old male, who presents to the emergency department, on November 10, in the morning, complaining of respiratory distress, cough, shortness of breath, and difficulty breathing. The patient is not a particularly good historian. Apparently the patient has been sick for at least 10 days and may be a bit longer. He admits to cough, chest congestion, and phlegm production. The patient has received full coronavirus vaccination. He apparently the patient has a history of both CAD, and COPD. There is no fever or chills. He denies chest pain or chest discomfort. His appetite has been poor. His chest x-ray shows a substantial infiltrate in the right lower lobe, and on computed tomography scan, there was no pulmonary embolism, but there was pneumonia, and p ossibly a parapneumonic effusion. The patient's history includes CAD, pneumonia, COPD, angina, skin cancer, and thoracic aortic aneurysm, 4.2 cm in size. The patient is also had a cardiac catheterization with stent. Lab data includes a white count of 45.2, hemoglobin 13.1, hematocrit 39.5, platelet count 286,000. PT was 14, INR 1.4, PTT 24.6, and d-dimer was 32.67. Blood gases show a PaO2 of 122, pCO2 45, pH is 7.4. Sodium 139, potassium 4.7, chlorides 98, CO2 30, anion gap 11, BUN 41, creatinine 1.12, glucose 42, lactic acid 2.8, repeat 1.1, LDH 1990, C-reactive protein 40.8, troponin 0.126, and coronavirus testing, was negative. N-terminal proBNP was 3130. Chest x-ray and CAT scan of both reviewed. On 11/11/2020 patient seen in follow-up in the intensive care unit, he is awake and alert, he is moderately dyspneic with conversation, he is currently on 6 L of oxygen his pulse ox is 87-92%, is awake and alert, oriented 3, answering questions appropriately, he is pointing is infusing at a rate of 120 ML per hour, no other drips, he is on accommodation cefepime and vancomycin for bibasilar pneumonia right greater than left. He is tolerating oral intake, he sounds very congested on today's exam, not bringing up any sputum, today's chest x-ray showing bilateral airspace disease with some interval improvement. She was afebrile overnight, hemodynamically stable, he is sinus mechanism with a rate of 92. He is on breathing treatments. Today's labs have been reviewed showing trending white blood cell count to 33.8, hemoglobin of 11.4, is a d- dimer was quite elevated yesterday at 32.6, sodium is 140, potassium is 4.2, chloride is 104, CO2 34, B1 is 20, creatinine 0.67, his troponins trended down with peripheral and down to 0.057. She was negative for COVID-19, his u rinalysis showed no clear sign of infection. Per his blood cultures are negative. Patient was reevaluated today on 11/12/2020, patient is now on the regular medical floor, remains dyspneic, continues to have intermittent cough. Patient is on 6 L high flow cannula, and his O2 saturation is in the low 90s. Patient has chronic shortness of breath, and he will continue to have shortness of breath mostly because of his underlying COPD, and not to mention that he has ongoing extensive right lower lobe pneumonia. Patient remains on antibiotics in the form of cefepime and vancomycin. His white count is coming down, it was initially 45,000 on admission and it is now 29.6. PTT is 65.2, electrolytes are normal basic metabolic profile is normal renal profile is normal patient had negative PCR for coronavirus. Sputum and blood cultures are pending. So far nondiagnostic chest x-ray showed slight improvement in his right lower lobe pneumonia. Objective - Vital Signs Vital signs: Vital Signs Temp 97.8 F 11/12/20 16:35 Pulse 64 11/12/20 16:35 Resp 20 11/12/20 16:35 BP 115/64 11/12/20 16:35 Pulse Ox 96 11/12/20 16:35 Intake & Output 11/11/20 11/12/20 11/12/20 18:59 06:59 18:59 Intake Total 1336.427 074.207 3120.04 Output Total 600 325 Balance 736.427 190.299 0473.04 Weight 62.5 kg Intake: IV 635 61.04 0.9 635 Heparin Sod,Pork in 0.45% 61.04 NaCl 25,000 unit In 0.45 % NaCl 1 250ml.bag @ 18 UNITS/KG/HR 10.566 mls/hr IV .[id number] [facility] Rx#: [id number] Intake, IV Titration 701.427 67.466 950 Amount Cefepime 2 gm In Sodium 100 Chloride 0.9% 100 ml @ 25 mls/hr IVPB Q12HR [facility] Rx #:[id number] Cefepime 2 gm In Sodium 100 100 Chloride 0.9% 100 ml @ 25 mls/hr IVPB Q8HR [facility] Rx# :[id number] Heparin Sod,Pork in 0.45% 76.427 67.466 NaCl 25,000 unit In 0.45 % NaCl 1 250ml.bag @ 18 UNITS/KG/HR 10.566 mls/hr IV .[id number] [facility] Rx#: [id number] Sodium Chloride 0.9% 1, 300 600 000 ml @ 75 mls/hr IV . [id number] [facility] Rx#:[id number] Vancomycin 1,000 mg In 125 250 Sodium Chloride 0.9% 250 ml @ 125 mls/hr IVPB Q10H [facility] Rx#:[id number] Oral 480 125 Output: Urine 600 325 Other: Voiding Method Urinal Urinal # Voids 1 - Exam GENERAL EXAM: Revealed 75-year-old white male, extremely frail and cachectic, on 6 L nasal cannula, in mild respiratory distress with any activity or even talking. HEAD: Normocephalic/atraumatic. EYES: Anicteric, pupils are equal. NOSE: Clear with pink turbinates. EENT: No neck masses no JVD no stridor. CHEST: No chest wall deformity. Symmetrical expansion. LUNGS: Records at the bases, and rhonchi especially at the right base. CVS: Normal S1 and S2, no gallops. ABDOMEN: Soft, nontender. No hepatosplenomegaly, normal bowel sounds, no guarding or rigidity. EXTREMITIES: Clubbing edema or cyanosis. MUSCULOSKELETAL: No deformities noted limitation range of motion SKIN: No rashes. Neurologic/PSYCHIATRIC: alert and oriented 3, no gross focal deficits.: Normal mood, affect and normal mental status examination. - Labs CBC & Chem 7: 11/12/20 08:33 11/12/20 08:33 Labs: Abnormal Lab Results - Last 24 Hours (Table) 11/11/20 11/11/20 11/12/20 Range/Units 17:17 20:40 00:58 WBC (3.8-10.6) k/uL RBC (4.30-5.90) m/uL Hgb (13.0-17.5) gm/dL Hct (39.0-53.0) % MCV (80.0-100.0) fL MCHC (31.0-37.0) g/dL Neutrophils # (Manual) (1.3-7.7) k/uL Lymphocytes # (Manual) (1.0-4.8) k/uL Myelocytes # (Manual) (0) k/uL APTT 70.7 H 114.8 H* (22.0-30.0) sec Chloride (98-107) mmol/L BUN (9-20) mg/dL Creatinine (0.66-1.25) mg/dL Glucose (74-99) mg/dL POC Glucose (mg/dL) 116 H (75-99) mg/dL Calcium (8.4-10.2) mg/dL 11/12/20 11/12/20 11/12/20 Range/Units 06:14 08:33 08:33 WBC 29.6 H (3.8-10.6) k/uL RBC 3.41 L (4.30-5.90) m/uL Hgb 10.7 L (13.0-17.5) gm/dL Hct 35.4 L (39.0-53.0) % MCV 103.8 H (80.0-100.0) fL MCHC 30.3 L (31.0-37.0) g/dL Neutrophils # (Manual) 28.10 H (1.3-7.7) k/uL Lymphocytes # (Manual) 0.89 L (1.0-4.8) k/uL Myelocytes # (Manual) 0.30 H (0) k/uL APTT (22.0-30.0) sec Chloride 111 H (98-107) mmol/L BUN 25 H (9-20) mg/dL Creatinine 0.56 L (0.66-1.25) mg/dL Glucose 131 H (74-99) mg/dL POC Glucose (mg/dL) 119 H (75-99) mg/dL Calcium 7.9 L (8.4-10.2) mg/dL 11/12/20 11/12/20 11/12/20 Range/Units 08:33 11:59 16:58 WBC (3.8-10.6) k/uL RBC (4.30-5.90) m/uL Hgb (13.0-17.5) gm/dL Hct (39.0-53.0) % MCV (80.0-100.0) fL MCHC (31.0-37.0) g/dL Neutrophils # (Manual) (1.3-7.7) k/uL Lymphocytes # (Manual) (1.0-4.8) k/uL Myelocytes # (Manual) (0) k/uL APTT 65.2 H (22.0-30.0) sec Chloride (98-107) mmol/L BUN (9-20) mg/dL Creatinine (0.66-1.25) mg/dL Glucose (74-99) mg/dL POC Glucose (mg/dL) 145 H 115 H (75-99) mg/dL Calcium (8.4-10.2) mg/dL Microbiology - Last 24 Hours (Table) 11/10/20 07:59 Blood Culture - Preliminary Blood No Growth after 48 hours 11/10/20 07:43 Blood Culture - Preliminary Blood No Growth after 48 hours 11/11/20 11:20 Gram Stain - Preliminary Sputum Sputum Culture - Preliminary Assessment and Plan Assessment: Impression: Acute on chronic hypoxic respiratory failure secondary to community-acquired right lower lobe pneumonia or possibly aspiration pneumonia also secondary to severe underlying COPD with FEV1 of 22% and possibly some component of right lower lobe parapneumonic effusion. Bilateral deep vein thromboses in the right lower extremity and left lower extremity, patient is on heparin. Troponin leak. History of coronary artery disease and previous stenting. History of thoracic aortic aneurysm. Chronic hypoxic respiratory failure. Dyslipidemia. Benign essential hypertension. History of osteoporosis. Recommendation: Continue antibiotics. Continue bronchodilators. Continue anticoagulation treatment/heparin. Continue GI and DVT prophylaxis. Continue to monitor closely Not quite ready for any discharge planning. Overall prognosis is extremely poor and guarded considering his multiple underlying medical problems especially COPD with FEV1 of 22%. We'll continue to follow. Time with Patient: Less than 30
[2020-11-12] MEDS: HEPARIN SOD,PORK IN 0.45% NACL 25,000 UNIT in 0.45% NACL 1 250ML.BAG IV SCH (19:52)
[2020-11-12 20:18] LABS: Glucose,Whole Blood 140 mg/dL (75-99)
[2020-11-13] MEDS ORDERED: VANCOMYCIN TROUGH DUE 1 EACH MISC MISCELLANE ONE (01:00)
[2020-11-13] MEDS: VANCOMYCIN 1,000 MG in SODIUM CHLORIDE 0.9% 250 ML IVPB SCH ×3 (02:43→21:55)
[2020-11-13] MEDS: SODIUM CHLORIDE 0.9% 1,000 ML IV SCH ×5 (02:48→23:28)
[2020-11-13 06:29] LABS: Glucose,Whole Blood 98 mg/dL (75-99)
[2020-11-13] MEDS: methylPREDNISolone SOD SUCCI 125 MG/2 ML VIAL IV SCH ×4 (06:46→23:27)
[2020-11-13] MEDS: ALBUTEROL HFA INHALER INHALATION SCH ×4 (08:13→19:34)
[2020-11-13] MEDS: TIOTROPIUM 2.5 MCG INHALER INHALATION SCH (08:14)
[2020-11-13] MEDS: SYMBICORT 160-4.5 MCG INHALER INHALATION SCH ×2 (08:14→19:35)
[2020-11-13 08:43] LABS: African American GFR (CKD) >90 (>60 ml/min/1.73 sqM); Anion Gap 1 mmol/L; Blood Urea Nitrogen 23 mg/dL (9-20); Calcium 7.9 mg/dL (8.4-10.2); Carbon Dioxide 30 mmol/L (22-30); Chloride 111 mmol/L (98-107); Glucose 101 mg/dL (74-99); LDH 1284 U/L (313-618); Non-African American GFR(CKD) >90 (>60 ml/min/1.73 sqM); Sodium 142 mmol/L (137-145)
[2020-11-13 08:55] LABS: C Reactive Protein 13.9 mg/dL (<1.0)
[2020-11-13 09:07] LABS: Basophils # (A) 0.1 k/uL (0-0.2); Basophils % (A) 0 %; Eosinophils % (A) 0 %; HCT 33.2 % (39.0-53.0); HGB 10.2 gm/dL (13.0-17.5); Hypochromasia Marked; Lymphocytes # (A) 0.6 k/uL (1.0-4.8); Lymphocytes % (A) 3 %; MCH 31.2 pg (25.0-35.0); MCHC 30.7 g/dL (31.0-37.0); MCV 101.8 fL (80.0-100.0); Macrocytosis Slight; Mean Platelet Volume 9.1; Monocytes # (A) 0.4 k/uL (0-1.0); Monocytes % (A) 2 %; Neutrophils # (A) 20.3 k/uL (1.3-7.7); Neutrophils % (A) 95 %; Platelet Count 202 k/uL (150-450); RBC 3.26 m/uL (4.30-5.90); RDW 13.5 % (11.5-15.5); WBC 21.4 k/uL (3.8-10.6)
[2020-11-13] MEDS: CEFEPIME 2 GM in SODIUM CHLORIDE 0.9% 100 ML IVPB SCH ×3 (09:40→23:27)
[2020-11-13] MEDS: atenoloL 25 MG TAB PO SCH (09:41)
[2020-11-13] MEDS: PANTOPRAZOLE 40 MG/10 ML VIAL IVP SCH (09:41)
[2020-11-13] MEDS: HEPARIN SOD,PORK IN 0.45% NACL 25,000 UNIT in 0.45% NACL 1 250ML.BAG IV SCH (10:14)
[2020-11-13] MEDS ORDERED: FUROSEMIDE 10 MG/ML 2 ML VIAL IV ONE (10:18)
[2020-11-13 11:52] LABS: Glucose,Whole Blood 150 mg/dL (75-99)
--- NOTE | 2020-11-13 13:00 | P.PN ---
Subjective Progress Note Date: 11/13/20 Principal diagnosis: Underwent intentional weight loss Patient is seen and examined sitting up in bed is having more difficulty with breathing. He was scheduled yesterday for a barium swallow, however he refused. Speech therapy is supposed to come see the patient today, he is still refusing the barium swallow study. He did some oatmeal this morning he states without any difficulty. He is coughing up some blood-tinged sputum. Denies any abdominal pain, nausea, or vomiting. Objective - Vital Signs Vital signs: Vital Signs Temp 97.6 F 11/13/20 09:45 Pulse 75 11/13/20 09:45 Resp 26 H 11/13/20 09:45 BP 117/64 11/13/20 09:45 Pulse Ox 83 L 11/13/20 09:45 Intake & Output 11/12/20 11/13/20 11/13/20 18:59 06:59 18:59 Intake Total 1261.04 240 106.107 Output Total 275 Balance 1261.04 -35 106.107 Weight 65.5 kg Intake: IV 61.04 Heparin Sod,Pork in 0.45% 61.04 NaCl 25,000 unit In 0.45 % NaCl 1 250ml.bag @ 18 UNITS/KG/HR 10.566 mls/hr IV .[id number] [facility] Rx#: [id number] Intake, IV Titration 950 106.107 Amount Cefepime 2 gm In Sodium 100 Chloride 0.9% 100 ml @ 25 mls/hr IVPB Q8HR [facility] Rx# :[id number] Heparin Sod,Pork in 0.45% 106.107 NaCl 25,000 unit In 0.45 % NaCl 1 250ml.bag @ 18 UNITS/KG/HR 10.566 mls/hr IV .[id number] [facility] Rx#: [id number] Sodium Chloride 0.9% 1, 600 000 ml @ 75 mls/hr IV . [id number] [facility] Rx#:[id number] Vancomycin 1,000 mg In 250 Sodium Chloride 0.9% 250 ml @ 125 mls/hr IVPB Q10H [facility] Rx#:[id number] Oral 250 240 Output: Urine 275 Other: Voiding Method Urinal - Exam General appearance: The patient is alert, oriented, appears in no acute distress. HET: Head is normocephalic and atraumatic. Conjunctiva pink. Sclera anicteric. Neck: Supple without lymphadenopathy. Abdomen: Soft, nontender, nondistended with bowel sounds. No guarding or rigidity. Extremities: Normal skin color and turgor. No pedal edema Skin: No rashes, no jaundice Neurological: No focal deficits. Alert and oriented 3. - Labs CBC & Chem 7: 11/13/20 07:55 11/13/20 07:55 Labs: Abnormal Lab Results - Last 24 Hours (Table) 11/12/20 11/12/20 11/12/20 Range/Units 08:33 08:33 08:33 WBC 29.6 H (3.8-10.6) k/uL RBC 3.41 L (4.30-5.90) m/uL Hgb 10.7 L (13.0-17.5) gm/dL Hct 35.4 L (39.0-53.0) % MCV 103.8 H (80.0-100.0) fL MCHC 30.3 L (31.0-37.0) g/dL Neutrophils # (1.3-7.7) k/uL Neutrophils # (Manual) 28.10 H (1.3-7.7) k/uL Lymphocytes # (1.0-4.8) k/uL Lymphocytes # (Manual) 0.89 L (1.0-4.8) k/uL Myelocytes # (Manual) 0.30 H (0) k/uL APTT 65.2 H (22.0-30.0) sec Chloride 111 H (98-107) mmol/L BUN 25 H (9-20) mg/dL Creatinine 0.56 L (0.66-1.25) mg/dL Glucose 131 H (74-99) mg/dL POC Glucose (mg/dL) (75-99) mg/dL Calcium 7.9 L (8.4-10.2) mg/dL Lactate Dehydrogenase (313-618) U/L C-Reactive Protein (<1.0) mg/dL 11/12/20 11/12/20 11/12/20 Range/Units 11:59 16:58 20:17 WBC (3.8-10.6) k/uL RBC (4.30-5.90) m/uL Hgb (13.0-17.5) gm/dL Hct (39.0-53.0) % MCV (80.0-100.0) fL MCHC (31.0-37.0) g/dL Neutrophils # (1.3-7.7) k/uL Neutrophils # (Manual) (1.3-7.7) k/uL Lymphocytes # (1.0-4.8) k/uL Lymphocytes # (Manual) (1.0-4.8) k/uL Myelocytes # (Manual) (0) k/uL APTT (22.0-30.0) sec Chloride (98-107) mmol/L BUN (9-20) mg/dL Creatinine (0.66-1.25) mg/dL Glucose (74-99) mg/dL POC Glucose (mg/dL) 145 H 115 H 140 H (75-99) mg/dL Calcium (8.4-10.2) mg/dL Lactate Dehydrogenase (313-618) U/L C-Reactive Protein (<1.0) mg/dL 11/13/20 11/13/20 11/13/20 Range/Units 07:55 07:55 07:55 WBC 21.4 H (3.8-10.6) k/uL RBC 3.26 L (4.30-5.90) m/uL Hgb 10.2 L (13.0-17.5) gm/dL Hct 33.2 L (39.0-53.0) % MCV 101.8 H (80.0-100.0) fL MCHC 30.7 L (31.0-37.0) g/dL Neutrophils # 20.3 H (1.3-7.7) k/uL Neutrophils # (Manual) (1.3-7.7) k/uL Lymphocytes # 0.6 L (1.0-4.8) k/uL Lymphocytes # (Manual) (1.0-4.8) k/uL Myelocytes # (Manual) (0) k/uL APTT 70.6 H (22.0-30.0) sec Chloride 111 H (98-107) mmol/L BUN 23 H (9-20) mg/dL Creatinine 0.49 L (0.66-1.25) mg/dL Glucose 101 H (74-99) mg/dL POC Glucose (mg/dL) (75-99) mg/dL Calcium 7.9 L (8.4-10.2) mg/dL Lactate Dehydrogenase 1284 H (313-618) U/L C-Reactive Protein 13.9 H (<1.0) mg/dL Microbiology - Last 24 Hours (Table) 11/10/20 07:43 Blood Culture Gram Stain - Preliminary Blood Blood Culture - Preliminary Streptococcus species 11/10/20 07:43 Blood Culture - Final Blood 11/10/20 07:59 Blood Culture - Preliminary Blood No Growth after 48 hours 11/11/20 11:20 Gram Stain - Preliminary Sputum Sputum Culture - Preliminary Assessment and Plan (1) Difficulty swallowing Narrative/Plan: This is a 75-year-old male with multiple medical comorbidities currently receiving treatment for DVT, worsening shortness of breath with possible aspiration pneumonia and proximal atrial fibrillation. Patient denies any abdominal pain, no signs of symptoms of GI bleed. He does report weight loss in association with decreased oral intake over the past year. Previously patient underwent EGD 2019 for intermittent dysphagia with findings of antral gastritis and a colonoscopy in 2014 with findings of a normal colon. Stool testing for occult blood is negative. He had a loss of his voice to some extent and there is also concern for possible aspiration with plan for modified barium swallow. Current Visit: Yes Status: Acute Code(s): R13.10 - DYSPHAGIA, UNSPECIFIED SNOMED Code(s): 94115030 (2) Leukocytosis Current Visit: Yes Status: Acute Code(s): D72.829 - ELEVATED WHITE BLOOD CELL COUNT, UNSPECIFIED SNOMED Code(s): 611968794 (3) Sepsis due to pneumonia Current Visit: Yes Status: Acute Code(s): J18.9 - PNEUMONIA, UNSPECIFIED ORGANISM; A41.9 - SEPSIS, UNSPECIFIED ORGANISM SNOMED Code(s): 50022637 (4) Unintentional weight loss Current Visit: Yes Status: Acute Code(s): R63.4 - ABNORMAL WEIGHT LOSS SNOMED Code(s): 460434856 Plan: Supportive care Okay for diet as tolerated with aspiration precautions Await findings from modified barium swallow EGD from 2019 colonoscopy from 2014 reviewed, no plan for endoscopic evaluation at this time as there are no worrisome features on computed tomography scan of the abdomen and given the patient's current respiratory status Continue other medical management as per primary team and consulting services Thank you for this consultation, we will be on standby Patient may follow-up with Dr. Staples for outpatient endoscopies. Dr. Bhatia I agree with the dictator's note, documented as a scribe by Sveta De La O.
--- NOTE | 2020-11-13 16:37 | P.PN ---
Subjective Progress Note Date: 11/13/20 This is 75-year-old gentleman with history of CAD, prior cardiac cath with stenting, advanced COPD/emphysema, pneumonia, skin cancer, thoracic aortic aneurysm, alcohol use and multiple other medical issues presented to the ER with complaints of worsening difficulty breathing, productive cough, chest pressure for approximately 10 days or longer. Patient reports he received both coronavirus vaccines, last one received 2 weeks ago. Denies fever or chills. Reports poor appetite. Denies nausea vomiting or diarrhea. Denies abdominal pain. Chest x-ray consistent with underlying COPD, extensive emphysema no pneumothorax, bilateral patchy airspace disease greater on the right, prominence of the pulmonary arteries consistent with underlying pulmonary artery hypertension, aortia dense and ectatic. 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 T-max 100.2, WBC 45.2. Hemoglobin 13.1, platelets 286 and MCV 98.8, d-dimer is 32.67, sodium 139, potassium 4.7, CO2 30, BUN 41, creatinine 1.12 ,glucose 42 on admission currently 127, lactic acid 2.8, calcium 8.3, magnesium 2 ferritin pending, total bili 0.7, AST 140 alk phos 217 ALT 48 LDH 1990, troponin 0.126, CRP 40.8, BNP 3130, ABGs noted. EKG reporting sinus tachycardia, PACs.Tested negative for coronavirus,Received vancomycin, cefepime and steroids in the ER. 11/11/2020 apparently patient wears 2-1/2 L at home and states that his had bumped his oxygen up to 4 prior to his admission. Significant weight loss reporting greater than 40 pounds in 6 months to the last year. 2 teeth broke off approximately 4 weeks ago, states he did not swallow them. Maintained on cefepime and vancomycin. Afebrile, WBC trending down, BUN 28, creatinine 0.67. Preliminary blood cultures reporting no growth at 24 hours. Hemoglobin 11.4, platelets 194. 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 Evaluated by speech therapy, scheduled for MBS, ruling out aspiration. Chest CT on admission suggestive of abdominal aortic dissection .Evaluated by vascular surgery, CTA with runoff ordered. CT angiogram of abdomen and aorta with runoff reported no evidence of abdominal aortic aneurysm or dissection, short focal dissection of left common iliac artery, 3 vessel runoff to bilateral feet. Troponin 0.126, 0.075, 0.057. 11/12/2020 transferred out of ICU yesterday to telemetry unit .Yesterday developed a brief episode of asymptomatic paroximal atrial fibrillation with RVR with heart rate up into the 160s and converted back to sinus rhythm. Maintained on beta anastacio. oxygen requirements mildly worsened requiring high flow 6 L nasal cannula maintaining O2 sats in the low 90s. Chest x-ray reporting similar to prior, underlying emphysema. Hemoglobin trending down down to 10.7, platelets 190. Stool for occult blood negative. Evaluated by GI with recommendations noted and appreciated including EGD and colonoscopy once respiratory status stabilizes. Maintained on antibiotics, nebulized bronchodilators and steroids. Blood sugars controlled. blood cultures and sputum culture finalizing. Afebrile, WBC trending down to 29.6. 11/13/2020 mild respiratory distress this morning, desatted into the 80s, fluids KVO'd, received a dose of Lasix IVP. Significant improvement, now maintaining O2 sats in the mid 90s. Declined MBS. Continues to have productive cough with blood-tinged sputum. Afebrile, WBC trending down 21.4. Hemoglobin 10.2, platelets 202. Diet intake 25%. BUN 23, creatinine 0.49. Blood sugars stable. LDH trending down, 1284, CRP trending down 13.9. Denies any chest pain, palpitations. Denies any nausea vomiting or diarrhea. Denies any abdominal pain Objective - Vital Signs Vital signs: Vital Signs Temp 98.1 F 11/13/20 02:40 Pulse 61 11/13/20 02:40 Resp 18 11/13/20 02:40 BP 104/64 11/13/20 02:40 Pulse Ox 98 11/13/20 02:40 Intake & Output 11/12/20 11/13/20 11/13/20 18:59 06:59 18:59 Intake Total 1261.04 240 Output Total 275 Balance 1261.04 -35 Weight 65.5 kg Intake: IV 61.04 Heparin Sod,Pork in 0.45% 61.04 NaCl 25,000 unit In 0.45 % NaCl 1 250ml.bag @ 18 UNITS/KG/HR 10.566 mls/hr IV .[id number] [facility] Rx#: [id number] Intake, IV Titration 950 Amount Cefepime 2 gm In Sodium 100 Chloride 0.9% 100 ml @ 25 mls/hr IVPB Q8HR [facility] Rx# :[id number] Sodium Chloride 0.9% 1, 600 000 ml @ 75 mls/hr IV . [id number] [facility] Rx#:[id number] Vancomycin 1,000 mg In 250 Sodium Chloride 0.9% 250 ml @ 125 mls/hr IVPB Q10H [facility] Rx#:[id number] Oral 250 240 Output: Urine 275 Other: Voiding Method Urinal - Exam PHYSICAL EXAM: VITAL SIGNS: [As above] GENERAL: Alert and oriented 3, Sitting up in bed, NAD, hoarse HEENT: Conjunctivae normal. eyes normal. NECK: Supple, No JVD. CARDIOVASCULAR: S1, S2 regular. No murmur, gallops or rubs RESPIRATION: Congested. Breath sounds diminished in the bases witih scattered rhonchi, bibasilar crackles ABDOMEN: Soft, nontender . No guarding. no masses palpable. Bowel sounds heard. LEGS: mild edema. No clubbing, no cyanosis. NERVOUS SYSTEM: Cranial N 2-12 grossly normal. Moves all 4 limbs. No focal deficits. Skin: Warm and dry, no rash - Labs CBC & Chem 7: 11/13/20 07:55 11/13/20 07:55 Labs: Abnormal Lab Results - Last 24 Hours (Table) 11/12/20 11/12/20 11/12/20 Range/Units 08:33 08:33 08:33 WBC 29.6 H (3.8-10.6) k/uL RBC 3.41 L (4.30-5.90) m/uL Hgb 10.7 L (13.0-17.5) gm/dL Hct 35.4 L (39.0-53.0) % MCV 103.8 H (80.0-100.0) fL MCHC 30.3 L (31.0-37.0) g/dL Neutrophils # (Manual) 28.10 H (1.3-7.7) k/uL Lymphocytes # (Manual) 0.89 L (1.0-4.8) k/uL Myelocytes # (Manual) 0.30 H (0) k/uL APTT 65.2 H (22.0-30.0) sec Chloride 111 H (98-107) mmol/L BUN 25 H (9-20) mg/dL Creatinine 0.56 L (0.66-1.25) mg/dL Glucose 131 H (74-99) mg/dL POC Glucose (mg/dL) (75-99) mg/dL Calcium 7.9 L (8.4-10.2) mg/dL Lactate Dehydrogenase (313-618) U/L 11/12/20 11/12/20 11/12/20 Range/Units 11:59 16:58 20:17 WBC (3.8-10.6) k/uL RBC (4.30-5.90) m/uL Hgb (13.0-17.5) gm/dL Hct (39.0-53.0) % MCV (80.0-100.0) fL MCHC (31.0-37.0) g/dL Neutrophils # (Manual) (1.3-7.7) k/uL Lymphocytes # (Manual) (1.0-4.8) k/uL Myelocytes # (Manual) (0) k/uL APTT (22.0-30.0) sec Chloride (98-107) mmol/L BUN (9-20) mg/dL Creatinine (0.66-1.25) mg/dL Glucose (74-99) mg/dL POC Glucose (mg/dL) 145 H 115 H 140 H (75-99) mg/dL Calcium (8.4-10.2) mg/dL Lactate Dehydrogenase (313-618) U/L 11/13/20 11/13/20 Range/Units 07:55 07:55 WBC (3.8-10.6) k/uL RBC (4.30-5.90) m/uL Hgb (13.0-17.5) gm/dL Hct (39.0-53.0) % MCV (80.0-100.0) fL MCHC (31.0-37.0) g/dL Neutrophils # (Manual) (1.3-7.7) k/uL Lymphocytes # (Manual) (1.0-4.8) k/uL Myelocytes # (Manual) (0) k/uL APTT 70.6 H (22.0-30.0) sec Chloride 111 H (98-107) mmol/L BUN 23 H (9-20) mg/dL Creatinine 0.49 L (0.66-1.25) mg/dL Glucose 101 H (74-99) mg/dL POC Glucose (mg/dL) (75-99) mg/dL Calcium 7.9 L (8.4-10.2) mg/dL Lactate Dehydrogenase 1284 H (313-618) U/L Microbiology - Last 24 Hours (Table) 11/10/20 07:43 Blood Culture Gram Stain - Preliminary Blood Blood Culture - Preliminary Streptococcus species 11/10/20 07:43 Blood Culture - Final Blood 11/10/20 07:59 Blood Culture - Preliminary Blood No Growth after 48 hours 11/11/20 11:20 Gram Stain - Preliminary Sputum Sputum Culture - Preliminary Assessment and Plan Assessment: Acute on chronic hypoxic respiratory failure, secondary to right lower lobe pneumonia and small right-sided parapneumonic effusion. Reports he normally wears 2-1/2 L at home. Bacteremia, strept species Possible aspiration pneumonia, MBS -patient declining Bilateral lower extremity acute DVTs No PE , reported per CT Elevated troponin, suspect related to hypoxia, acute coronary syndrome ruled out as per cardiology Paroxysmal atrial fibrillation, chronic Significant weight loss of 40 pounds in the last 6-12 months, reported Possible Alpha 1 antitrypsin deficiency, lab pending Hoarse voice X 1 yr, reports he previously had fungal infection of the vocal cords, further follow-up outpatient with ENT recommended Hemoptysis Advanced emphysema, COPD stage IV Chronic hypoxic, hypercapnic respiratory failure on home O2 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 History of angina pectoris CAD with history of stenting Pulmonary hypertension Hyperlipidemia History of SVT Gastroesophageal reflux disease Alcohol use History of basal cell skin cancer Former nicotine dependence 4 mm right kidney nonobstructing stone per CTA Osteoporosis Plan: Continue current medication regime ,monitoring and symptomatic treatment. Strict aspiration precautions. Continue IV antibiotics, nebulized bronchodilators, steroids, PPI. Anticoagulated on Heparin drip. PT/OT evaluation noted, patient would benefit from subacute rehab at discharge. Possible outpatient EGD/colonoscopy. ENT recommended patient follow-up OP. Prognosis guarded given multiple complex medical issues. The impression and plan of care has been dictated as directed. : I performed a history and examination of this patient, discussed the same with the dictator. I agree with the dictator's note ,documented as a scribe. Any additional findings or plans will be noted.
--- NOTE | 2020-11-13 17:22 | P.PN ---
Subjective Progress Note Date: 11/13/20 Principal diagnosis: Acute on chronic hypoxic respiratory failure secondary to Acute right lower lobe pneumonia, community-acquired. Possible aspiration pneumonia. And secondary to underlying COPD FEV1 of 22% 75-year-old male, who presents to the emergency department, on November 10, in the morning, complaining of respiratory distress, cough, shortness of breath, and difficulty breathing. The patient is not a particularly good historian. Apparently the patient has been sick for at least 10 days and may be a bit longer. He admits to cough, chest congestion, and phlegm production. The patient has received full coronavirus vaccination. He apparently the patient has a history of both CAD, and COPD. There is no fever or chills. He denies chest pain or chest discomfort. His appetite has been poor. His chest x-ray shows a substantial infiltrate in the right lower lobe, and on computed tomography scan, there was no pulmonary embolism, but there was pneumonia, and p ossibly a parapneumonic effusion. The patient's history includes CAD, pneumonia, COPD, angina, skin cancer, and thoracic aortic aneurysm, 4.2 cm in size. The patient is also had a cardiac catheterization with stent. Lab data includes a white count of 45.2, hemoglobin 13.1, hematocrit 39.5, platelet count 286,000. PT was 14, INR 1.4, PTT 24.6, and d-dimer was 32.67. Blood gases show a PaO2 of 122, pCO2 45, pH is 7.4. Sodium 139, potassium 4.7, chlorides 98, CO2 30, anion gap 11, BUN 41, creatinine 1.12, glucose 42, lactic acid 2.8, repeat 1.1, LDH 1990, C-reactive protein 40.8, troponin 0.126, and coronavirus testing, was negative. N-terminal proBNP was 3130. Chest x-ray and CAT scan of both reviewed. On 11/11/2020 patient seen in follow-up in the intensive care unit, he is awake and alert, he is moderately dyspneic with conversation, he is currently on 6 L of oxygen his pulse ox is 87-92%, is awake and alert, oriented 3, answering questions appropriately, he is pointing is infusing at a rate of 120 ML per hour, no other drips, he is on accommodation cefepime and vancomycin for bibasilar pneumonia right greater than left. He is tolerating oral intake, he sounds very congested on today's exam, not bringing up any sputum, today's chest x-ray showing bilateral airspace disease with some interval improvement. She was afebrile overnight, hemodynamically stable, he is sinus mechanism with a rate of 92. He is on breathing treatments. Today's labs have been reviewed showing trending white blood cell count to 33.8, hemoglobin of 11.4, is a d- dimer was quite elevated yesterday at 32.6, sodium is 140, potassium is 4.2, chloride is 104, CO2 34, B1 is 20, creatinine 0.67, his troponins trended down with peripheral and down to 0.057. She was negative for COVID-19, his u rinalysis showed no clear sign of infection. Per his blood cultures are negative. Patient was reevaluated today on 11/12/2020, patient is now on the regular medical floor, remains dyspneic, continues to have intermittent cough. Patient is on 6 L high flow cannula, and his O2 saturation is in the low 90s. Patient has chronic shortness of breath, and he will continue to have shortness of breath mostly because of his underlying COPD, and not to mention that he has ongoing extensive right lower lobe pneumonia. Patient remains on antibiotics in the form of cefepime and vancomycin. His white count is coming down, it was initially 45,000 on admission and it is now 29.6. PTT is 65.2, electrolytes are normal basic metabolic profile is normal renal profile is normal patient had negative PCR for coronavirus. Sputum and blood cultures are pending. So far nondiagnostic chest x-ray showed slight improvement in his right lower lobe pneumonia. Patient was reevaluated today on 11/13/2020, remains on the regular medical floor, he is on 6 L high flow nasal cannula, O2 saturations 94%. Patient received Lasix earlier today, and he stated that he felt better after the Lasix was given. His blood culture on admission is showing Streptococcus species, most likely this is going to be Streptococcus pneumoniae, the patient is on antibiotics in the form of cefepime and vancomycin which is appropriate for the time being until the final culture is available. Clinically the patient is improving. WBC count was initially 45,000 and it is today 21.4. Electrolytes are normal renal profile is normal his PTT is therapeutic at 70.6. Chest x-ray from yesterday continued to show large area of consolidation involving the right lower lobe. Apparently patient has been refusing his barium swallow evaluation. Objective - Vital Signs Vital signs: Vital Signs Temp 97.6 F 11/13/20 09:45 Pulse 70 11/13/20 15:21 Resp 26 H 11/13/20 09:45 BP 106/63 11/13/20 15:21 Pulse Ox 94 L 11/13/20 15:21 Intake & Output 11/12/20 11/13/20 11/13/20 18:59 06:59 18:59 Intake Total 1261.04 240 346.107 Output Total 275 1550 Balance 1261.04 -35 -1203.893 Weight 65.5 kg Intake: IV 61.04 Heparin Sod,Pork in 0.45% 61.04 NaCl 25,000 unit In 0.45 % NaCl 1 250ml.bag @ 18 UNITS/KG/HR 10.566 mls/hr IV .[id number] [facility] Rx#: [id number] Intake, IV Titration 950 106.107 Amount Cefepime 2 gm In Sodium 100 Chloride 0.9% 100 ml @ 25 mls/hr IVPB Q8HR [facility] Rx# :[id number] Heparin Sod,Pork in 0.45% 106.107 NaCl 25,000 unit In 0.45 % NaCl 1 250ml.bag @ 18 UNITS/KG/HR 10.566 mls/hr IV .[id number] [facility] Rx#: [id number] Sodium Chloride 0.9% 1, 600 000 ml @ 10 mls/hr IV . Q24H [facility] Rx#:[id number] Vancomycin 1,000 mg In 250 Sodium Chloride 0.9% 250 ml @ 125 mls/hr IVPB Q10H [facility] Rx#:[id number] Oral 250 240 240 Output: Urine 275 1550 Other: Voiding Method Urinal - Exam GENERAL EXAM: Revealed 75-year-old white male, extremely frail and cachectic, on 6 L nasal cannula, comfortable, not in distress HEAD: Normocephalic/atraumatic. EYES: Anicteric, pupils are equal. NOSE: Clear with pink turbinates. EENT: No neck masses no JVD no stridor. CHEST: No chest wall deformity. Symmetrical expansion. LUNGS: Records at the bases, and rhonchi especially at the right base. CVS: Normal S1 and S2, no gallops. ABDOMEN: Soft, nontender. No hepatosplenomegaly, normal bowel sounds, no guarding or rigidity. EXTREMITIES: Clubbing edema or cyanosis. MUSCULOSKELETAL: No deformities noted limitation range of motion SKIN: No rashes. Neurologic/PSYCHIATRIC: alert and oriented 3, no gross focal deficits.: Normal mood, affect and normal mental status examination. - Labs CBC & Chem 7: 11/13/20 07:55 11/13/20 07:55 Labs: Abnormal Lab Results - Last 24 Hours (Table) 11/12/20 11/13/20 11/13/20 Range/Units 20:17 07:55 07:55 WBC 21.4 H (3.8-10.6) k/uL RBC 3.26 L (4.30-5.90) m/uL Hgb 10.2 L (13.0-17.5) gm/dL Hct 33.2 L (39.0-53.0) % MCV 101.8 H (80.0-100.0) fL MCHC 30.7 L (31.0-37.0) g/dL Neutrophils # 20.3 H (1.3-7.7) k/uL Lymphocytes # 0.6 L (1.0-4.8) k/uL APTT (22.0-30.0) sec Chloride 111 H (98-107) mmol/L BUN 23 H (9-20) mg/dL Creatinine 0.49 L (0.66-1.25) mg/dL Glucose 101 H (74-99) mg/dL POC Glucose (mg/dL) 140 H (75-99) mg/dL Calcium 7.9 L (8.4-10.2) mg/dL Lactate Dehydrogenase 1284 H (313-618) U/L C-Reactive Protein 13.9 H (<1.0) mg/dL 11/13/20 11/13/20 Range/Units 07:55 11:46 WBC (3.8-10.6) k/uL RBC (4.30-5.90) m/uL Hgb (13.0-17.5) gm/dL Hct (39.0-53.0) % MCV (80.0-100.0) fL MCHC (31.0-37.0) g/dL Neutrophils # (1.3-7.7) k/uL Lymphocytes # (1.0-4.8) k/uL APTT 70.6 H (22.0-30.0) sec Chloride (98-107) mmol/L BUN (9-20) mg/dL Creatinine (0.66-1.25) mg/dL Glucose (74-99) mg/dL POC Glucose (mg/dL) 150 H (75-99) mg/dL Calcium (8.4-10.2) mg/dL Lactate Dehydrogenase (313-618) U/L C-Reactive Protein (<1.0) mg/dL Microbiology - Last 24 Hours (Table) 11/10/20 07:59 Blood Culture - Preliminary Blood No Growth after 72 hours 11/11/20 11:20 Gram Stain - Final Sputum Sputum Culture - Final 11/10/20 07:43 Blood Culture Gram Stain - Preliminary Blood Blood Culture - Preliminary Streptococcus species 11/10/20 07:43 Blood Culture - Final Blood Assessment and Plan Assessment: Impression: Acute on chronic hypoxic respiratory failure secondary to Streptococcus pneumonia unless proven otherwise. Based on the fact the patient has positive blood cultures showing Streptococcus species. Acute bacteremia secondary to Streptococcus species secondary to pneumonia. Bilateral deep vein thromboses in the right lower extremity and left lower extremity, patient is on heparin. Troponin leak. History of coronary artery disease and previous stenting. History of thoracic aortic aneurysm. Chronic hypoxic respiratory failure. Dyslipidemia. Benign essential hypertension. History of osteoporosis. Recommendation: Continue antibiotics. Adjust the antibiotics after the final culture from the sputum or blood. Continue bronchodilators. Continue anticoagulation treatment/heparin. Continue GI and DVT prophylaxis. Continue to monitor closely Overall prognosis is extremely poor and guarded considering his multiple underlying medical problems especially COPD with FEV1 of 22%. We'll continue to follow. Time with Patient: Less than 30
[2020-11-13 17:49] LABS: Glucose,Whole Blood 131 mg/dL (75-99)
[2020-11-13 20:36] LABS: Glucose,Whole Blood 142 mg/dL (75-99)
[2020-11-14 06:00] LABS: Glucose,Whole Blood 116 mg/dL (75-99)
[2020-11-14] MEDS: SODIUM CHLORIDE 0.9% 1,000 ML IV SCH ×3 (06:12→22:10)
[2020-11-14] MEDS: methylPREDNISolone SOD SUCCI 125 MG/2 ML VIAL IV SCH ×4 (06:28→23:32)
[2020-11-14] MEDS: ALBUTEROL HFA INHALER INHALATION SCH ×4 (09:23→20:19)
[2020-11-14] MEDS: SYMBICORT 160-4.5 MCG INHALER INHALATION SCH ×2 (09:24→20:19)
[2020-11-14] MEDS: TIOTROPIUM 2.5 MCG INHALER INHALATION SCH (09:24)
[2020-11-14] MEDS: CEFEPIME 2 GM in SODIUM CHLORIDE 0.9% 100 ML IVPB SCH ×3 (09:49→23:32)
[2020-11-14] MEDS: PANTOPRAZOLE 40 MG/10 ML VIAL IVP SCH (09:49)
[2020-11-14] MEDS: atenoloL 25 MG TAB PO SCH (09:49)
[2020-11-14] MEDS: VANCOMYCIN 1,000 MG in SODIUM CHLORIDE 0.9% 250 ML IVPB SCH ×2 (09:50→18:44)
[2020-11-14 11:32] LABS: African American GFR (CKD) >90 (>60 ml/min/1.73 sqM); Anion Gap 2 mmol/L; Blood Urea Nitrogen 25 mg/dL (9-20); Calcium 7.7 mg/dL (8.4-10.2); Carbon Dioxide 29 mmol/L (22-30); Chloride 109 mmol/L (98-107); Glucose 102 mg/dL (74-99); Non-African American GFR(CKD) >90 (>60 ml/min/1.73 sqM); Potassium 3.8 mmol/L (3.5-5.1); Sodium 140 mmol/L (137-145)
--- NOTE | 2020-11-14 12:00 | P.PN ---
Subjective Progress Note Date: 11/14/20 This is 75-year-old gentleman with history of CAD, prior cardiac cath with stenting, advanced COPD/emphysema, pneumonia, skin cancer, thoracic aortic aneurysm, alcohol use and multiple other medical issues presented to the ER with complaints of worsening difficulty breathing, productive cough, chest pressure for approximately 10 days or longer. Patient reports he received both coronavirus vaccines, last one received 2 weeks ago. Denies fever or chills. Reports poor appetite. Denies nausea vomiting or diarrhea. Denies abdominal pain. Chest x-ray consistent with underlying COPD, extensive emphysema no pneumothorax, bilateral patchy airspace disease greater on the right, prominence of the pulmonary arteries consistent with underlying pulmonary artery hypertension, aortia dense and ectatic. CTA reported no evidence for acute PE, advanced emphysematous change with worsening masslike consolidation right lower lobe, small complex loculated posterior right pleural fluid collection, dissection beginning in the distal thoracic aorta just above the diaphragm extending along the course of the entire visualized portion of the abdominal aorta-type B [place] or [place] type III abdominal aortic dissection, 4 mm nonobstructing stone admitted to the lower pole right kidney. T-max 100.2, WBC 45.2. Hemoglobin 13.1, platelets 286 and MCV 98.8, d-dimer is 32.67, sodium 139, potassium 4.7, CO2 30, BUN 41, creatinine 1.12 ,glucose 42 on admission currently 127, lactic acid 2.8, calcium 8.3, magnesium 2 ferritin pending, total bili 0.7, AST 140 alk phos 217 ALT 48 LDH 1990, troponin 0.126, CRP 40.8, BNP 3130, ABGs noted. EKG reporting sinus tachycardia, PACs.Tested negative for coronavirus,Received vancomycin, cefepime and steroids in the ER. 11/11/2020 apparently patient wears 2-1/2 L at home and states that his had bumped his oxygen up to 4 prior to his admission. Significant weight loss reporting greater than 40 pounds in 6 months to the last year. 2 teeth broke off approximately 4 weeks ago, states he did not swallow them. Maintained on cefepime and vancomycin. Afebrile, WBC trending down, BUN 28, creatinine 0.67. Preliminary blood cultures reporting no growth at 24 hours. Hemoglobin 11.4, platelets 194. 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 Evaluated by speech therapy, scheduled for MBS, ruling out aspiration. Chest CT on admission suggestive of abdominal aortic dissection .Evaluated by vascular surgery, CTA with runoff ordered. CT angiogram of abdomen and aorta with runoff reported no evidence of abdominal aortic aneurysm or dissection, short focal dissection of left common iliac artery, 3 vessel runoff to bilateral feet. Troponin 0.126, 0.075, 0.057. 11/12/2020 transferred out of ICU yesterday to telemetry unit .Yesterday developed a brief episode of asymptomatic paroximal atrial fibrillation with RVR with heart rate up into the 160s and converted back to sinus rhythm. Maintained on beta anastacio. oxygen requirements mildly worsened requiring high flow 6 L nasal cannula maintaining O2 sats in the low 90s. Chest x-ray reporting similar to prior, underlying emphysema. Hemoglobin trending down down to 10.7, platelets 190. Stool for occult blood negative. Evaluated by GI with recommendations noted and appreciated including EGD and colonoscopy once respiratory status stabilizes. Maintained on antibiotics, nebulized bronchodilators and steroids. Blood sugars controlled. blood cultures and sputum culture finalizing. Afebrile, WBC trending down to 29.6. 11/13/2020 mild respiratory distress this morning, desatted into the 80s, fluids KVO'd, received a dose of Lasix IVP. Significant improvement, now maintaining O2 sats in the mid 90s. Declined MBS. Continues to have productive cough with blood-tinged sputum. Afebrile, WBC trending down 21.4. Hemoglobin 10.2, platelets 202. Diet intake 25%. BUN 23, creatinine 0.49. Blood sugars stable. LDH trending down, 1284, CRP trending down 13.9. Denies any chest pain, palpitations. Denies any nausea vomiting or diarrhea. Denies any abdominal pain 11/14/2020 no overnight events. Continues on 6 L high flow nasal cannula, maintaining O2 sats of 92-97%. Sputum cultures reported moderate normal respiratory gretel. Blood cultures reporting streptococcus species, finalizing. Continues on cefepime, vancomycin. BUN 25, creatinine 0.43. Diet intake increased yesterday ,Consumed 50% of lunch and dinner. Breakfast intake pending. Denies any chest pain, palpitations. Afebrile. Objective - Vital Signs Vital signs: Vital Signs Temp 97.7 F 11/14/20 04:40 Pulse 65 11/14/20 08:00 Resp 22 11/14/20 08:00 BP 119/71 11/14/20 08:00 Pulse Ox 92 L 11/14/20 08:00 Intake & Output 11/13/20 11/14/20 11/14/20 18:59 06:59 18:59 Intake Total 826.107 Output Total 1550 600 Balance -723.893 -600 Weight 63 kg Intake: Intake, IV Titration 106.107 Amount Heparin Sod,Pork in 0.45% 106.107 NaCl 25,000 unit In 0.45 % NaCl 1 250ml.bag @ 18 UNITS/KG/HR 10.566 mls/hr IV .[id number] [facility] Rx#: [id number] Oral 720 Output: Urine 1550 600 Other: Voiding Method Urinal # Bowel Movements 1 - Exam PHYSICAL EXAM: VITAL SIGNS: [As above] GENERAL: Alert and oriented 3, Sitting up in bed, NAD, hoarse, weak HEENT: Conjunctivae normal. eyes normal. NECK: Supple, No JVD. CARDIOVASCULAR: S1, S2 regular. No murmur, gallops or rubs RESPIRATION: Congested. Breath sounds diminished in the bases witih scattered rhonchi ABDOMEN: Soft, nontender . No guarding. no masses palpable. Bowel sounds heard. LEGS: Positive edema. No clubbing, no cyanosis. NERVOUS SYSTEM: Cranial N 2-12 grossly normal. No focal deficits. Weak. Skin: Warm and dry, no rash Microbiology 11/10/20 07:59 Blood Blood Culture - Preliminary No Growth after 96 hours 11/11/20 11:20 Sputum Gram Stain - Final 11/11/20 11:20 Sputum Sputum Culture - Final 11/10/20 07:43 Blood Blood Culture Gram Stain - Preliminary 11/10/20 07:43 Blood Blood Culture - Preliminary Streptococcus species 11/10/20 07:43 Blood Blood Culture - Final - Labs CBC & Chem 7: 11/13/20 07:55 11/14/20 09:23 Labs: Abnormal Lab Results - Last 24 Hours (Table) 11/13/20 11/13/20 11/13/20 Range/Units 11:46 16:21 17:35 APTT 51.7 H (22.0-30.0) sec Chloride (98-107) mmol/L BUN (9-20) mg/dL Creatinine (0.66-1.25) mg/dL Glucose (74-99) mg/dL POC Glucose (mg/dL) 150 H 131 H (75-99) mg/dL Calcium (8.4-10.2) mg/dL 11/13/20 11/14/20 11/14/20 Range/Units 20:34 05:58 09:23 APTT (22.0-30.0) sec Chloride 109 H (98-107) mmol/L BUN 25 H (9-20) mg/dL Creatinine 0.43 L (0.66-1.25) mg/dL Glucose 102 H (74-99) mg/dL POC Glucose (mg/dL) 142 H 116 H (75-99) mg/dL Calcium 7.7 L (8.4-10.2) mg/dL Microbiology - Last 24 Hours (Table) 11/10/20 07:59 Blood Culture - Preliminary Blood No Growth after 96 hours 11/11/20 11:20 Gram Stain - Final Sputum Sputum Culture - Final Assessment and Plan Assessment: Acute on chronic hypoxic respiratory failure, secondary to right lower lobe pneumonia and small right-sided parapneumonic effusion. Reports he normally wears 2-1/2 L at home. Bacteremia, strept species Possible aspiration pneumonia, MBS -patient declining Bilateral lower extremity acute DVTs No PE , reported per CT Elevated troponin, suspect related to hypoxia, acute coronary syndrome ruled out as per cardiology Paroxysmal atrial fibrillation, chronic Significant unintentional weight loss of 40 pounds in the last 6-12 months, reported. Follow-up with GI outpatient for potential diagnostic EGD and colonoscopy. Possible Alpha 1 antitrypsin deficiency, lab pending Hoarse voice X 1 yr, reports he previously had fungal infection of the vocal cords, further follow-up outpatient with ENT recommended Hemoptysis Advanced emphysema, COPD stage IV Chronic hypoxic, hypercapnic respiratory failure on home O2 Type B [place] or [place] type III abdominal aortic dissection reported per CT, evaluated by vascular surgery, CTA with runoff reported negative for thoracic aortic dissection or abdominal aortic aneurysm. History of angina pectoris CAD with history of stenting Pulmonary hypertension Hyperlipidemia History of SVT Gastroesophageal reflux disease Alcohol use History of basal cell skin cancer Former nicotine dependence 4 mm right kidney nonobstructing stone per CTA Osteoporosis Plan: Continue current medication regime , PPI, monitoring and symptomatic treatment. Maintain strict aspiration precautions, declining MBS. Continues on heparin drip for anticoagulation secondary to bilateral DVTs. Blood culture finalizing, repeat bc in progress.Continue IV antibiotics, nebulized bronchodilators, steroids. Subacute rehab at discharge. Prognosis guarded given multiple complex medical issues. The impression and plan of care has been dictated as directed. : I performed a history and examination of this patient, discussed the same with the dictator. I agree with the dictator's note ,documented as a scribe. Any additional findings or plans will be noted.
[2020-11-14 12:15] LABS: Glucose,Whole Blood 141 mg/dL (75-99)
[2020-11-14] MEDS: HEPARIN SOD,PORK IN 0.45% NACL 25,000 UNIT in 0.45% NACL 1 250ML.BAG IV SCH (12:43)
[2020-11-14 14:33] VITALS: BMI 19.9
[2020-11-14] MEDS ORDERED: FUROSEMIDE 10 MG/ML 4 ML VIAL IV STA (14:37)
--- NOTE | 2020-11-14 15:11 | XR ---
EXAMINATION TYPE: XR chest 1V portable DATE OF EXAM: 11/14/2020 COMPARISON: Chest x-ray 11/12/2020 HISTORY: Pneumonia TECHNIQUE: frontal view of the chest is obtained on 2 images. FINDINGS: Bilateral airspace disease persists. There is no evident pneumothorax. Cardiac mediastinal silhouette is stable. Aorta is dense. IMPRESSION: Findings are similar to prior exam. Correlate for bilateral pneumonia.
[2020-11-14] MEDS: ACETAMINOPHEN TAB 325 MG TAB PO PRN (15:46)
[2020-11-14 17:09] LABS: Glucose,Whole Blood 120 mg/dL (75-99)
--- NOTE | 2020-11-14 17:31 | P.PN ---
Subjective Progress Note Date: 11/14/20 Principal diagnosis: Acute on chronic hypoxic respiratory failure secondary to Acute right lower lobe pneumonia, community-acquired. Possible aspiration pneumonia. And secondary to underlying COPD FEV1 of 22% 75-year-old male, who presents to the emergency department, on November 10, in the morning, complaining of respiratory distress, cough, shortness of breath, and difficulty breathing. The patient is not a particularly good historian. Apparently the patient has been sick for at least 10 days and may be a bit longer. He admits to cough, chest congestion, and phlegm production. The patient has received full coronavirus vaccination. He apparently the patient has a history of both CAD, and COPD. There is no fever or chills. He denies chest pain or chest discomfort. His appetite has been poor. His chest x-ray shows a substantial infiltrate in the right lower lobe, and on computed tomography scan, there was no pulmonary embolism, but there was pneumonia, and p ossibly a parapneumonic effusion. The patient's history includes CAD, pneumonia, COPD, angina, skin cancer, and thoracic aortic aneurysm, 4.2 cm in size. The patient is also had a cardiac catheterization with stent. Lab data includes a white count of 45.2, hemoglobin 13.1, hematocrit 39.5, platelet count 286,000. PT was 14, INR 1.4, PTT 24.6, and d-dimer was 32.67. Blood gases show a PaO2 of 122, pCO2 45, pH is 7.4. Sodium 139, potassium 4.7, chlorides 98, CO2 30, anion gap 11, BUN 41, creatinine 1.12, glucose 42, lactic acid 2.8, repeat 1.1, LDH 1990, C-reactive protein 40.8, troponin 0.126, and coronavirus testing, was negative. N-terminal proBNP was 3130. Chest x-ray and CAT scan of both reviewed. On 11/11/2020 patient seen in follow-up in the intensive care unit, he is awake and alert, he is moderately dyspneic with conversation, he is currently on 6 L of oxygen his pulse ox is 87-92%, is awake and alert, oriented 3, answering questions appropriately, he is pointing is infusing at a rate of 120 ML per hour, no other drips, he is on accommodation cefepime and vancomycin for bibasilar pneumonia right greater than left. He is tolerating oral intake, he sounds very congested on today's exam, not bringing up any sputum, today's chest x-ray showing bilateral airspace disease with some interval improvement. She was afebrile overnight, hemodynamically stable, he is sinus mechanism with a rate of 92. He is on breathing treatments. Today's labs have been reviewed showing trending white blood cell count to 33.8, hemoglobin of 11.4, is a d- dimer was quite elevated yesterday at 32.6, sodium is 140, potassium is 4.2, chloride is 104, CO2 34, B1 is 20, creatinine 0.67, his troponins trended down with peripheral and down to 0.057. She was negative for COVID-19, his u rinalysis showed no clear sign of infection. Per his blood cultures are negative. Patient was reevaluated today on 11/12/2020, patient is now on the regular medical floor, remains dyspneic, continues to have intermittent cough. Patient is on 6 L high flow cannula, and his O2 saturation is in the low 90s. Patient has chronic shortness of breath, and he will continue to have shortness of breath mostly because of his underlying COPD, and not to mention that he has ongoing extensive right lower lobe pneumonia. Patient remains on antibiotics in the form of cefepime and vancomycin. His white count is coming down, it was initially 45,000 on admission and it is now 29.6. PTT is 65.2, electrolytes are normal basic metabolic profile is normal renal profile is normal patient had negative PCR for coronavirus. Sputum and blood cultures are pending. So far nondiagnostic chest x-ray showed slight improvement in his right lower lobe pneumonia. Patient was reevaluated today on 11/13/2020, remains on the regular medical floor, he is on 6 L high flow nasal cannula, O2 saturations 94%. Patient received Lasix earlier today, and he stated that he felt better after the Lasix was given. His blood culture on admission is showing Streptococcus species, most likely this is going to be Streptococcus pneumoniae, the patient is on antibiotics in the form of cefepime and vancomycin which is appropriate for the time being until the final culture is available. Clinically the patient is improving. WBC count was initially 45,000 and it is today 21.4. Electrolytes are normal renal profile is normal his PTT is therapeutic at 70.6. Chest x-ray from yesterday continued to show large area of consolidation involving the right lower lobe. Apparently patient has been refusing his barium swallow evaluation. Reevaluated today on 11/14/2020, patient does not feel much better today, as a matter of fact he feels he is getting worse. He is still on 6 L high flow cannula, O2 sats is 90%. He is hemodynamically stable, afebrile. Yesterday the patient improved after a dose of Lasix, I will go ahead and give him another dose of Lasix today. On examination he had diffuse crackles and rhonchi bilat erally. Blood culture was positive for Streptococcus species, I'm suspecting were dealing with Streptococcus pneumoniae. Patient remains empirically on antibiotics. Including cefepime and vancomycin. Final identification on the Streptococcus species is pending. His WBC count continues to steadily improve, yesterday was 21.4. Hemoglobin is 10.2. His initial WBC count on admission was 45,000. PTT is 44.5, remains on heparin. Objective - Vital Signs Vital signs: Vital Signs Temp 97.7 F 11/14/20 04:40 Pulse 70 11/14/20 16:00 Resp 24 11/14/20 12:00 BP 126/66 11/14/20 16:00 Pulse Ox 90 L 11/14/20 16:00 Intake & Output 11/13/20 11/14/20 11/14/20 18:59 06:59 18:59 Intake Total 826.107 350 Output Total 1550 600 500 Balance -723.893 -600 -150 Weight 63 kg 63 kg Intake: Intake, IV Titration 106.107 350 Amount Cefepime 2 gm In Sodium 100 Chloride 0.9% 100 ml @ 25 mls/hr IVPB Q8HR [facility] Rx# :[id number] Heparin Sod,Pork in 0.45% 106.107 NaCl 25,000 unit In 0.45 % NaCl 1 250ml.bag @ 18 UNITS/KG/HR 10.566 mls/hr IV .[id number] [facility] Rx#: [id number] Vancomycin 1,000 mg In 250 Sodium Chloride 0.9% 250 ml @ 125 mls/hr IVPB Q12HR [facility] Rx#:[id number] Oral 720 Output: Urine 1550 600 500 Other: Voiding Method Urinal # Voids 4 # Bowel Movements 1 - Exam GENERAL EXAM: Revealed 75-year-old white male, extremely frail and cachectic, on 6 L nasal cannula, in mild distress. Anxious. HEAD: Normocephalic/atraumatic. EYES: Anicteric, pupils are equal. NOSE: Clear with pink turbinates. EENT: No neck masses no JVD no stridor. CHEST: No chest wall deformity. Symmetrical expansion. LUNGS: Crackles and rhonchi noted bilaterally. CVS: Normal S1 and S2, no gallops. ABDOMEN: Soft, nontender. No hepatosplenomegaly, normal bowel sounds, no guarding or rigidity. EXTREMITIES: Clubbing edema or cyanosis. MUSCULOSKELETAL: No deformities noted limitation range of motion SKIN: No rashes. Neurologic/PSYCHIATRIC: Anxious mood alert and oriented 3, no gross focal deficits.: Normal affect and normal mental status examination. - Labs CBC & Chem 7: 11/13/20 07:55 11/14/20 09:23 Labs: Abnormal Lab Results - Last 24 Hours (Table) 11/13/20 11/13/20 11/13/20 Range/Units 16:21 17:35 20:34 APTT 51.7 H (22.0-30.0) sec Chloride (98-107) mmol/L BUN (9-20) mg/dL Creatinine (0.66-1.25) mg/dL Glucose (74-99) mg/dL POC Glucose (mg/dL) 131 H 142 H (75-99) mg/dL Calcium (8.4-10.2) mg/dL 11/14/20 11/14/20 11/14/20 Range/Units 05:58 09:23 09:23 APTT 44.5 H (22.0-30.0) sec Chloride 109 H (98-107) mmol/L BUN 25 H (9-20) mg/dL Creatinine 0.43 L (0.66-1.25) mg/dL Glucose 102 H (74-99) mg/dL POC Glucose (mg/dL) 116 H (75-99) mg/dL Calcium 7.7 L (8.4-10.2) mg/dL 11/14/20 11/14/20 Range/Units 12:12 17:07 APTT (22.0-30.0) sec Chloride (98-107) mmol/L BUN (9-20) mg/dL Creatinine (0.66-1.25) mg/dL Glucose (74-99) mg/dL POC Glucose (mg/dL) 141 H 120 H (75-99) mg/dL Calcium (8.4-10.2) mg/dL Microbiology - Last 24 Hours (Table) 11/10/20 07:59 Blood Culture - Preliminary Blood No Growth after 96 hours Assessment and Plan Assessment: Impression: Acute on chronic hypoxic respiratory failure secondary to Streptococcus pneumonia unless proven otherwise. Based on the fact the patient has positive blood cultures showing Streptococcus species. Acute bacteremia secondary to Streptococcus species secondary to pneumonia. Bilateral deep vein thromboses in the right lower extremity and left lower e xtremity, patient is on heparin. Troponin leak. History of coronary artery disease and previous stenting. History of thoracic aortic aneurysm. Chronic hypoxic respiratory failure. Dyslipidemia. Benign essential hypertension. History of osteoporosis. Recommendation: Continue antibiotics. Adjust the antibiotics after the final culture from the sputum or blood. Continue bronchodilators. Trial of gentle diuresis again will be given today. Continue anticoagulation treatment/heparin. Continue GI and DVT prophylaxis. Continue to monitor closely Overall prognosis is extremely poor and guarded considering his multiple underlying medical problems especially COPD with FEV1 of 22%. We'll continue to follow. Time with Patient: Less than 30
[2020-11-14 19:56] LABS: Glucose,Whole Blood 136 mg/dL (75-99)
[2020-11-15] MEDS: SODIUM CHLORIDE 0.9% 1,000 ML IV SCH ×3 (03:29→18:11)
[2020-11-15] MEDS: VANCOMYCIN 1,000 MG in SODIUM CHLORIDE 0.9% 250 ML IVPB SCH ×2 (03:55→14:05)
[2020-11-15] MEDS: methylPREDNISolone SOD SUCCI 125 MG/2 ML VIAL IV SCH ×3 (05:39→18:11)
[2020-11-15] MEDS: SYMBICORT 160-4.5 MCG INHALER INHALATION SCH ×2 (07:04→19:52)
[2020-11-15] MEDS: ALBUTEROL HFA INHALER INHALATION SCH ×4 (07:04→19:42)
[2020-11-15] MEDS: TIOTROPIUM 2.5 MCG INHALER INHALATION SCH (07:04)
[2020-11-15 07:13] LABS: Glucose,Whole Blood 109 mg/dL (75-99)
--- NOTE | 2020-11-15 07:29 | XR ---
EXAMINATION TYPE: XR chest 1V portable DATE OF EXAM: 11/15/2020 COMPARISON: Chest x-ray 11/14/2020 HISTORY: Pneumonia TECHNIQUE: Single frontal view of the chest is obtained. FINDINGS: Findings are similar to prior exam. IMPRESSION: Bilateral pneumonia, associated effusion, there is underlying emphysema
[2020-11-15] MEDS: CEFEPIME 2 GM in SODIUM CHLORIDE 0.9% 100 ML IVPB SCH ×2 (07:59→16:47)
[2020-11-15] MEDS: atenoloL 25 MG TAB PO SCH (08:02)
[2020-11-15] MEDS: PANTOPRAZOLE 40 MG TABLET PO SCH (08:02)
[2020-11-15 08:31] LABS: African American GFR (CKD) >90 (>60 ml/min/1.73 sqM); Anion Gap 3 mmol/L; Blood Urea Nitrogen 26 mg/dL (9-20); Calcium 7.5 mg/dL (8.4-10.2); Carbon Dioxide 31 mmol/L (22-30); Chloride 106 mmol/L (98-107); Glucose 99 mg/dL (74-99); Non-African American GFR(CKD) >90 (>60 ml/min/1.73 sqM); Potassium 3.6 mmol/L (3.5-5.1); Sodium 140 mmol/L (137-145)
[2020-11-15] MEDS: HEPARIN SOD,PORK IN 0.45% NACL 25,000 UNIT in 0.45% NACL 1 250ML.BAG IV SCH (09:46)
[2020-11-15 11:19] LABS: Glucose,Whole Blood 102 mg/dL (75-99)
--- NOTE | 2020-11-15 13:38 | P.PN ---
Subjective Progress Note Date: 11/15/20 Principal diagnosis: Worsening shortness of breath, cough 75-year-old male presented to the emergency room if worsening shortness of breath, cough. Patient history and also advanced COPD\emphysema, pneumonia, skin cancer, thoracic aortic aneurysm, prior cardiac cath with stenting, history of CAD, and numerous emergency room visits due to his advanced COPD. Understand patient is received both for vaccines. Chest x-ray showed underlying COPD, extensive emphysema no pneumothorax, bilateral patchy airspace disease greater on the right than left. CTA no evidence acute PE, advanced emphysema change with worsening masslike consolidation right lower lobe pleural fluid or cons olidation. Today patient is resting in bed on 6 L nasal cannula with no complaints at this time. He mentions that he feels like he is breathing better and he denies nausea, vomiting diarrhea, fever, pain. Vital signs are essentially stable at this time as is afebrile 98.3, pulse rate of 55, respi ratory rate of 18, blood pressure 125/73, is maintaining oxygen saturation of 94% on 6 L high flow. Most recent chemistry sodium 140, potassium 3.6, JAMILA of 26, creatinine 0.47. CBC results not present. Objective - Vital Signs Vital signs: Vital Signs Temp 98.3 F 11/15/20 07:52 Pulse 55 L 11/15/20 07:52 Resp 18 11/15/20 08:00 BP 125/73 11/15/20 07:52 Pulse Ox 94 L 11/15/20 07:52 Intake & Output 11/14/20 11/15/20 11/15/20 18:59 06:59 18:59 Intake Total 350 240 135.92 Output Total 850 500 200 Balance -500 -260 -64.08 Weight 63 kg Intake: Intake, IV Titration 350 135.92 Amount Cefepime 2 gm In Sodium 100 Chloride 0.9% 100 ml @ 25 mls/hr IVPB Q8HR [facility] Rx# :[id number] Heparin Sod,Pork in 0.45% 135.92 NaCl 25,000 unit In 0.45 % NaCl 1 250ml.bag @ 18 UNITS/KG/HR 10.566 mls/hr IV .[id number] [facility] Rx#: [id number] Vancomycin 1,000 mg In 250 Sodium Chloride 0.9% 250 ml @ 125 mls/hr IVPB Q12HR [facility] Rx#:[id number] Oral 240 Output: Urine 850 500 200 Other: Voiding Method Urinal # Voids 4 3 # Bowel Movements 1 - Exam GENERAL: Cachectic, on 6 L high flow with mild distress. HEAD: Atraumatic, normocephalic. EYES: Pupils equal round and reactive to light, extraocular movements intact, sclera anicteric, conjunctiva are normal. ENT:nares patent, oropharynx clear without exudates. Moist mucous membranes. NECK: Normal range of motion, supple without lymphadenopathy or JVD, no thyromegaly LUNGS: Breath sounds diminished with bilateral lower rhonchi. HEART: Regular rate and rhythm without murmurs, rubs or gallops.S1S2 Normal ABDOMEN: Soft, nontender, normoactive bowel sounds. No guarding, no rebound. No masses appreciated. EXTREMITIES: Normal range of motion, no pitting or edema. No clubbing or cyanosis. NEUROLOGICAL: Cranial nerves II through XII grossly intact. Normal speech, normal gait. PSYCH: Normal mood, normal affect. SKIN: Warm, Dry, no rashes or lesions noted. - Labs CBC & Chem 7: 11/13/20 07:55 11/15/20 07:02 Labs: Abnormal Lab Results - Last 24 Hours (Table) 11/14/20 11/14/20 11/15/20 Range/Units 17:07 19:55 07:02 APTT (22.0-30.0) sec Carbon Dioxide 31 H (22-30) mmol/L BUN 26 H (9-20) mg/dL Creatinine 0.47 L (0.66-1.25) mg/dL POC Glucose (mg/dL) 120 H 136 H (75-99) mg/dL Calcium 7.5 L (8.4-10.2) mg/dL 11/15/20 11/15/20 11/15/20 Range/Units 07:02 07:12 11:15 APTT 54.4 H (22.0-30.0) sec Carbon Dioxide (22-30) mmol/L BUN (9-20) mg/dL Creatinine (0.66-1.25) mg/dL POC Glucose (mg/dL) 109 H 102 H (75-99) mg/dL Calcium (8.4-10.2) mg/dL Microbiology - Last 24 Hours (Table) 11/10/20 07:59 Blood Culture - Preliminary Blood No Growth after 120 hours 11/10/20 07:43 Blood Culture Gram Stain - Preliminary Blood Blood Culture - Preliminary Alpha Hemolytic Streptococcus 11/13/20 14:36 Blood Culture - Preliminary Blood No Growth after 24 hours 11/13/20 14:23 Blood Culture - Preliminary Blood No Growth after 24 hours Assessment and Plan (1) Sepsis due to pneumonia Current Visit: Yes Status: Acute Code(s): J18.9 - PNEUMONIA, UNSPECIFIED ORGANISM; A41.9 - SEPSIS, UNSPECIFIED ORGANISM SNOMED Code(s): 22848723 (2) Acute exacerbation of chronic obstructive airways disease Current Visit: No Status: Acute Code(s): J44.1 - CHRONIC OBSTRUCTIVE PULMONARY DISEASE W (ACUTE) EXACERBATION SNOMED Code(s): 648333851 (3) Community acquired pneumonia Current Visit: No Status: Acute Code(s): J18.9 - PNEUMONIA, UNSPECIFIED ORGANISM SNOMED Code(s): 055283788 (4) DVT, bilateral lower limbs Current Visit: Yes Status: Acute Code(s): I82.403 - ACUTE EMBOLISM AND YOSELIN ANTONIETA UNSP DEEP VEINS OF LOW EXTRM, BI SNOMED Code(s): 275033832 (5) Hemoptysis Current Visit: Yes Status: Acute Code(s): R04.2 - HEMOPTYSIS SNOMED Code(s): 02070049 (6) Unintentional weight loss Current Visit: Yes Status: Acute Code(s): R63.4 - ABNORMAL WEIGHT LOSS SNOMED Code(s): 152271942 (7) Atrial fibrillation Current Visit: No Status: Acute Code(s): I48.91 - UNSPECIFIED ATRIAL FIBRILLATION SNOMED Code(s): 20732143 (8) Coronary artery disease Current Visit: No Status: Acute Code(s): I25.10 - ATHSCL HEART DISEASE OF [place] CORONARY ARTERY W/O ANG PCTRS SNOMED Code(s): 41216495 (9) SVT (supraventricular tachycardia) Current Visit: No Status: Acute Code(s): I47.1 - SUPRAVENTRICULAR TACHYCARDIA SNOMED Code(s): 8616044 Plan: 1. Continue currently prescribed medication regimen. 2. Heparin drip for bilateral DVTs 3. Continue vancomycin and cefepime for right lower lobe pneumonia 4. Protonix for PPI prophylaxis 5. Aquaphor to bilateral heels for dry skin 6. She Steroids and nebulized bronchodilators. 7. We'll order lab work for tomorrow 8. We'll continue to monitor vitals and lab results and treat accordingly. 9. We will continue to follow closely and reassess again tomorrow Time with Patient: Greater than 30
[2020-11-15 16:34] LABS: Glucose,Whole Blood 155 mg/dL (75-99)
--- NOTE | 2020-11-15 17:02 | P.PN ---
Subjective Progress Note Date: 11/15/20 Principal diagnosis: Pneumonia, right lung greater than left 75-year-old male, who presents to the emergency department, on November 10, in the morning, complaining of respiratory distress, cough, shortness of breath, and difficulty breathing. The patient is not a particularly good historian. Apparently the patient has been sick for at least 10 days and may be a bit longer. He admits to cough, chest congestion, and phlegm production. The patient has received full coronavirus vaccination. He apparently the patient has a history of both CAD, and COPD. There is no fever or chills. He denies chest pain or chest discomfort. His appetite has been poor. His chest x-ray s hows a substantial infiltrate in the right lower lobe, and on computed tomography scan, there was no pulmonary embolism, but there was pneumonia, and possibly a parapneumonic effusion. The patient's history includes CAD, pneumonia, COPD, angina, skin cancer, and thoracic aortic aneurysm, 4.2 cm in size. The patient is also had a cardiac catheterization with stent. Lab data includes a white count of 45.2, hemoglobin 13.1, hematocrit 39.5, platelet count 286,000. PT was 14, INR 1.4, PTT 24.6, and d-dimer was 32.67. Blood gases show a PaO2 of 122, pCO2 45, pH is 7.4. Sodium 139, potassium 4.7, chlorides 98, CO2 30, anion gap 11, BUN 41, creatinine 1.12, glucose 42, lactic acid 2.8, repeat 1.1, LDH 1990, C-reactive protein 40.8, troponin 0.126, and coronavirus testing, was negative. N-terminal proBNP was 3130. Chest x-ray and CAT scan of both reviewed. On 11/11/2020 patient seen in follow-up in the intensive care unit, he is awake and alert, he is moderately dyspneic with conversation, he is currently on 6 L of oxygen his pulse ox is 87-92%, is awake and alert, oriented 3, answering questions appropriately, he is pointing is infusing at a rate of 120 ML per hour, no other drips, he is on accommodation cefepime and vancomycin for bibasilar pneumonia right greater than left. He is tolerating oral intake, he sounds very congested on today's exam, not bringing up any sputum, today's chest x-ray showing bilateral airspace disease with some interval improvement. She was afebrile overnight, hemodynamically stable, he is sinus mechanism with a rate of 92. He is on breathing treatments. Today's labs have been reviewed showing trending white blood cell count to 33.8, hemoglobin of 11.4, is a d- dimer was quite elevated yesterday at 32.6, sodium is 140, potassium is 4.2, chloride is 104, CO2 34, B1 is 20, creatinine 0.67, his troponins trended down with peripheral and down to 0.057. She was negative for COVID-19, his urinalysis showed no clear sign of infection. Per his blood cultures are negative. On 11/15/2020 patient seen in follow-up on medical surgical floor. He is resting comfortably in bed, remains on 6 L of oxygen his pulse ox of 95%, he is afebrile, hemodynamically stable, he remains on IV Solu-Medrol, he remains on cefepime and vancomycin, he has been given IV Lasix yesterday with improvement in his dyspnea. Chest x-ray shows bilateral pneumonia, with associated effusion, no significant change from previous chest x-ray, today's labs have been reviewed, sodium is 140, potassium is 3.6, chloride is 106, BUN is 26, creatinine 0.47. She had no fever or chills, no complaints of chest pain or hemoptysis. One of his blood cultures on 11/10/2020 was positive for alpha hemolytic streptococcus, follow blood cultures and sputum cultures have been negative Objective - Vital Signs Vital signs: Vital Signs Temp 98.2 F 11/15/20 14:00 Pulse 57 L 11/15/20 14:00 Resp 16 11/15/20 14:00 BP 116/69 11/15/20 14:00 Pulse Ox 95 11/15/20 14:00 Intake & Output 11/14/20 11/15/20 11/15/20 18:59 06:59 18:59 Intake Total 350 240 135.92 Output Total 850 500 200 Balance -500 -260 -64.08 Weight 63 kg Intake: Intake, IV Titration 350 135.92 Amount Cefepime 2 gm In Sodium 100 Chloride 0.9% 100 ml @ 25 mls/hr IVPB Q8HR [facility] Rx# :[id number] Heparin Sod,Pork in 0.45% 135.92 NaCl 25,000 unit In 0.45 % NaCl 1 250ml.bag @ 18 UNITS/KG/HR 10.566 mls/hr IV .[id number] [facility] Rx#: [id number] Vancomycin 1,000 mg In 250 Sodium Chloride 0.9% 250 ml @ 125 mls/hr IVPB Q12HR [facility] Rx#:[id number] Oral 240 Output: Urine 850 500 200 Other: Voiding Method Urinal # Voids 4 3 # Bowel Movements 1 - Exam GENERAL EXAM: Alert, very pleasant, 75-year-old white male, on 6 L of oxygen with pulse ox between 87-92%, moderately dyspneic with conversation, and even trying to eat patient seems to be short of breath, sounds congested comfortable in no apparent distress. HEAD: Normocephalic/atraumatic. EYES: Normal reaction of pupils, equal size. Conjunctiva pink, sclera white. NOSE: Clear with pink turbinates. THROAT: No erythema or exudates. NECK: No masses, no JVD, no thyroid enlargement, no adenopathy. CHEST: No chest wall deformity. Symmetrical expansion. LUNGS: Equal air entry with bibasilar crackles, congested cough, CVS: Regular rate and rhythm, normal S1 and S2, no gallops, no murmurs, no rubs ABDOMEN: Soft, nontender. No hepatosplenomegaly, normal bowel sounds, no guarding or rigidity. EXTREMITIES: No clubbing, no edema, no cyanosis, 2+ pulses and upper and lower extremities. MUSCULOSKELETAL: Muscle strength and tone normal. SPINE: No scoliosis or deformity SKIN: No rashes CENTRAL NERVOUS SYSTEM: Alert and oriented -3. No focal deficits, tone is normal in all 4 extremities. PSYCHIATRIC: Alert and oriented -3. Appropriate affect. Intact judgment and insight. - Labs CBC & Chem 7: 11/13/20 07:55 11/15/20 07:02 Labs: Abnormal Lab Results - Last 24 Hours (Table) 11/14/20 11/14/20 11/15/20 Range/Units 17:07 19:55 07:02 APTT (22.0-30.0) sec Carbon Dioxide 31 H (22-30) mmol/L BUN 26 H (9-20) mg/dL Creatinine 0.47 L (0.66-1.25) mg/dL POC Glucose (mg/dL) 120 H 136 H (75-99) mg/dL Calcium 7.5 L (8.4-10.2) mg/dL 11/15/20 11/15/20 11/15/20 Range/Units 07:02 07:12 11:15 APTT 54.4 H (22.0-30.0) sec Carbon Dioxide (22-30) mmol/L BUN (9-20) mg/dL Creatinine (0.66-1.25) mg/dL POC Glucose (mg/dL) 109 H 102 H (75-99) mg/dL Calcium (8.4-10.2) mg/dL 11/15/20 Range/Units 16:30 APTT (22.0-30.0) sec Carbon Dioxide (22-30) mmol/L BUN (9-20) mg/dL Creatinine (0.66-1.25) mg/dL POC Glucose (mg/dL) 155 H (75-99) mg/dL Calcium (8.4-10.2) mg/dL Microbiology - Last 24 Hours (Table) 11/10/20 07:59 Blood Culture - Preliminary Blood No Growth after 120 hours 11/10/20 07:43 Blood Culture Gram Stain - Preliminary Blood Blood Culture - Preliminary Alpha Hemolytic Streptococcus 11/13/20 14:36 Blood Culture - Preliminary Blood No Growth after 24 hours 11/13/20 14:23 Blood Culture - Preliminary Blood No Growth after 24 hours Assessment and Plan Plan: Assessment: #1. Acute on chronic hypoxic respiratory failure secondary to right lower lobe pneumonia and a small right-sided parapneumonic effusion, rule out possibility of aspiration #2. History of stage IV COPD with recent FEV1 of 22% of predicted on home oxygen 2 L/m #3. Bilateral acute DVT is greater in the right lower extremity versus the left lower extremity, CTA chest showed no evidence of pulmonary embolism #4. Troponin leak #5. CAD with previous stenting #6. Hypertension #7. Hyperlipidemia #8. Thoracic aortic aneurysm . Patient follows with Dr. Ramos: #9. History of basal cell cancer with multiple lesions removed from his back and arms #10. Osteoporosis #11. Previous episodes of pneumonia Plan: Continue current antibiotics, including cefepime and vancomycin Follow blood cultures have been negative Vital signs have been stable, no fever or chills Weaning FiO2 to maintain O2 saturations at or above 90% This chest x-ray has been noted and shows no significant change Continue same medical treatment, will follow I performed a history & physical examination of the patient and discussed their management with my nurse practitioner, Cookie Mason. I reviewed the nurse practitioner's note and agree with the documented findings and plan of care. Lung sounds are positive for diffuse rhonchi. The findings and the impression was discussed with the patient. I attest to the documentation by the nurse practitioner. Time with Patient: Less than 30
[2020-11-15 20:19] LABS: Glucose,Whole Blood 135 mg/dL (75-99)
[2020-11-16] MEDS: methylPREDNISolone SOD SUCCI 125 MG/2 ML VIAL IV SCH ×4 (00:41→17:57)
[2020-11-16] MEDS: VANCOMYCIN 1,000 MG in SODIUM CHLORIDE 0.9% 250 ML IVPB SCH ×3 (00:41→20:41)
[2020-11-16] MEDS: CEFEPIME 2 GM in SODIUM CHLORIDE 0.9% 100 ML IVPB SCH ×3 (00:42→16:47)
[2020-11-16] MEDS: SODIUM CHLORIDE 0.9% 1,000 ML IV SCH ×3 (04:29→17:52)
[2020-11-16 06:52] LABS: Glucose,Whole Blood 121 mg/dL (75-99)
[2020-11-16] MEDS: SYMBICORT 160-4.5 MCG INHALER INHALATION SCH ×2 (07:13→20:46)
[2020-11-16] MEDS: ALBUTEROL HFA INHALER INHALATION SCH ×4 (07:13→20:46)
[2020-11-16] MEDS: TIOTROPIUM 2.5 MCG INHALER INHALATION SCH (07:14)
[2020-11-16 07:48] LABS: ALT 110 U/L (4-49); AST 102 U/L (17-59); African American GFR (CKD) >90 (>60 ml/min/1.73 sqM); Albumin 2.3 g/dL (3.5-5.0); Albumin/Globulin Ratio 0.8; Alkaline Phosphatase 186 U/L (38-126); Anion Gap 0 mmol/L; Blood Urea Nitrogen 27 mg/dL (9-20); Calcium 7.5 mg/dL (8.4-10.2); Carbon Dioxide 31 mmol/L (22-30); Chloride 108 mmol/L (98-107); Globulin 2.8 g/dL; Glucose 107 mg/dL (74-99); Non-African American GFR(CKD) >90 (>60 ml/min/1.73 sqM); Potassium 3.6 mmol/L (3.5-5.1); Sodium 139 mmol/L (137-145); Total Bilirubin 0.4 mg/dL (0.2-1.3); Total Protein 5.1 g/dL (6.3-8.2)
[2020-11-16 08:21] LABS: Basophils % (A) 0 %; Eosinophils % (A) 0 %; HCT 30.2 % (39.0-53.0); HGB 9.6 gm/dL (13.0-17.5); Hypochromasia Slight; Lymphocytes # (A) 0.6 k/uL (1.0-4.8); Lymphocytes % (A) 2 %; MCH 31.6 pg (25.0-35.0); MCV 98.8 fL (80.0-100.0); Mean Platelet Volume 10.6; Monocytes # (A) 0.4 k/uL (0-1.0); Monocytes % (A) 2 %; Neutrophils # (A) 24.2 k/uL (1.3-7.7); Neutrophils % (A) 96 %; Platelet Count 271 k/uL (150-450); RBC 3.05 m/uL (4.30-5.90); RDW 13.8 % (11.5-15.5); WBC 25.2 k/uL (3.8-10.6)
[2020-11-16] MEDS: atenoloL 25 MG TAB PO SCH (08:56)
[2020-11-16] MEDS: PANTOPRAZOLE 40 MG TABLET PO SCH (08:56)
[2020-11-16] MEDS: HEPARIN SOD,PORK IN 0.45% NACL 25,000 UNIT in 0.45% NACL 1 250ML.BAG IV SCH (08:57)
[2020-11-16 11:41] LABS: Glucose,Whole Blood 124 mg/dL (75-99)
[2020-11-16] MEDS: ACETAMINOPHEN TAB 325 MG TAB PO PRN (11:46)
--- NOTE | 2020-11-16 12:50 | P.PN ---
Subjective Progress Note Date: 11/16/20 Principal diagnosis: Worsening shortness of breath, cough 75-year-old male presented to the emergency room if worsening shortness of breath, cough. Patient history and also advanced COPD\emphysema, pneumonia, skin cancer, thoracic aortic aneurysm, prior cardiac cath with stenting, history of CAD, and numerous emergency room visits due to his advanced COPD. Understand patient is received both for vaccines. Chest x-ray showed underlying COPD, extensive emphysema no pneumothorax, bilateral patchy airspace disease greater on the right than left. CTA no evidence acute PE, advanced emphysema change with worsening masslike consolidation right lower lobe pleural fluid or cons olidation. Today patient is resting in bed on 6 L nasal cannula with no complaints at this time. He mentions that he feels like he is breathing better and he denies nausea, vomiting diarrhea, fever, pain. Vital signs are essentially stable at this time as is afebrile 98.3, pulse rate of 55, respi ratory rate of 18, blood pressure 125/73, is maintaining oxygen saturation of 94% on 6 L high flow. Most recent chemistry sodium 140, potassium 3.6, JAMILA of 26, creatinine 0.47. CBC results not present. 11/16/2020 patient resting comfortably in bed maintenance on 6 L high flow nasal cannula at this time. Patient states he feels that he is breathing easier today, but stills appears to be in mild distress. Vital signs stable with temperature of 97.9, pulse rate 60, respiratory rate of 18, blood pressure 137/76, maintaining oxygen saturations in the upper 90s 6 L high flow. Patient does complain of bilateral heel and toe pain. WBC 25.2, hemoglobin 9.6, hematocrit 30.2, platelet count of 271. Chemistry reveals sodium 139, potassium 3.6, JAMILA 27, creatinine of 0.41. Liver enzymes AST is 102, ELT is 110. Chemistries and x-ray bilateral groin, associated effusion and there is underlying emphysema. Patient remains on IV steroids, IV antibiotics in the form of cefepime and vancomycin, heparin drip regards to patient's bilateral DVTs and is on proton extra PPI. Objective - Vital Signs Vital signs: Vital Signs Temp 97.9 F 11/16/20 07:23 Pulse 60 11/16/20 07:23 Resp 18 11/16/20 10:09 BP 137/76 11/16/20 07:23 Pulse Ox 99 11/16/20 07:23 Intake & Output 11/15/20 11/16/20 11/16/20 18:59 06:59 18:59 Intake Total 535.92 149.695 Output Total 400 200 Balance 135.92 -200 149.695 Intake: Intake, IV Titration 135.92 149.695 Amount Heparin Sod,Pork in 0.45% 135.92 149.695 NaCl 25,000 unit In 0.45 % NaCl 1 250ml.bag @ 18 UNITS/KG/HR 10.566 mls/hr IV .[id number] [facility] Rx#: [id number] Oral 400 Output: Urine 400 200 Other: Voiding Method Urinal External Catheter External Catheter - Exam GENERAL: Cachectic, on 6 L high flow with mild distress. HEAD: Atraumatic, normocephalic. EYES: Pupils equal round and reactive to light, extraocular movements intact, sclera anicteric, conjunctiva are normal. ENT:nares patent, oropharynx clear without exudates. Moist mucous membranes. NECK: Normal range of motion, supple without lymphadenopathy or JVD, no thyromegaly LUNGS: Breath sounds diminished with bilateral lower crackles. HEART: Regular rate and rhythm without murmurs, rubs or gallops.S1S2 Normal ABDOMEN: Soft, nontender, normoactive bowel sounds. No guarding, no rebound. No masses appreciated. EXTREMITIES: Normal range of motion, +1 pitting left foot. No clubbing or cyanosis. NEUROLOGICAL: Cranial nerves II through XII grossly intact. Normal speech PSYCH: Normal mood, normal affect. SKIN: Warm, Dry, no rashes or lesions noted. - Labs CBC & Chem 7: 11/16/20 06:30 11/16/20 06:30 Labs: Abnormal Lab Results - Last 24 Hours (Table) 11/15/20 11/15/20 11/16/20 Range/Units 16:30 20:17 06:30 WBC (3.8-10.6) k/uL RBC (4.30-5.90) m/uL Hgb (13.0-17.5) gm/dL Hct (39.0-53.0) % Neutrophils # (1.3-7.7) k/uL Lymphocytes # (1.0-4.8) k/uL APTT (22.0-30.0) sec Chloride 108 H (98-107) mmol/L Carbon Dioxide 31 H (22-30) mmol/L BUN 27 H (9-20) mg/dL Creatinine 0.41 L (0.66-1.25) mg/dL Glucose 107 H (74-99) mg/dL POC Glucose (mg/dL) 155 H 135 H (75-99) mg/dL Calcium 7.5 L (8.4-10.2) mg/dL AST 102 H (17-59) U/L ALT 110 H (4-49) U/L Alkaline Phosphatase 186 H (38-126) U/L Total Protein 5.1 L (6.3-8.2) g/dL Albumin 2.3 L (3.5-5.0) g/dL 11/16/20 11/16/20 11/16/20 Range/Units 06:30 06:30 06:51 WBC 25.2 H (3.8-10.6) k/uL RBC 3.05 L (4.30-5.90) m/uL Hgb 9.6 L (13.0-17.5) gm/dL Hct 30.2 L (39.0-53.0) % Neutrophils # 24.2 H (1.3-7.7) k/uL Lymphocytes # 0.6 L (1.0-4.8) k/uL APTT 72.2 H (22.0-30.0) sec Chloride (98-107) mmol/L Carbon Dioxide (22-30) mmol/L BUN (9-20) mg/dL Creatinine (0.66-1.25) mg/dL Glucose (74-99) mg/dL POC Glucose (mg/dL) 121 H (75-99) mg/dL Calcium (8.4-10.2) mg/dL AST (17-59) U/L ALT (4-49) U/L Alkaline Phosphatase (38-126) U/L Total Protein (6.3-8.2) g/dL Albumin (3.5-5.0) g/dL 11/16/20 11/16/20 Range/Units 11:39 11:57 WBC (3.8-10.6) k/uL RBC (4.30-5.90) m/uL Hgb (13.0-17.5) gm/dL Hct (39.0-53.0) % Neutrophils # (1.3-7.7) k/uL Lymphocytes # (1.0-4.8) k/uL APTT 54.7 H (22.0-30.0) sec Chloride (98-107) mmol/L Carbon Dioxide (22-30) mmol/L BUN (9-20) mg/dL Creatinine (0.66-1.25) mg/dL Glucose (74-99) mg/dL POC Glucose (mg/dL) 124 H (75-99) mg/dL Calcium (8.4-10.2) mg/dL AST (17-59) U/L ALT (4-49) U/L Alkaline Phosphatase (38-126) U/L Total Protein (6.3-8.2) g/dL Albumin (3.5-5.0) g/dL Microbiology - Last 24 Hours (Table) 11/10/20 07:59 Blood Culture - Final Blood No Growth after 144 hours 11/10/20 07:43 Blood Culture Gram Stain - Final Blood Blood Culture - Final Alpha Hemolytic Streptococcus Non Hemolytic Strep 11/13/20 14:36 Blood Culture - Preliminary Blood No Growth after 48 hours 11/13/20 14:23 Blood Culture - Preliminary Blood No Growth after 48 hours Assessment and Plan (1) Sepsis due to pneumonia Current Visit: Yes Status: Acute Code(s): J18.9 - PNEUMONIA, UNSPECIFIED ORGANISM; A41.9 - SEPSIS, UNSPECIFIED ORGANISM SNOMED Code(s): 52915331 (2) Acute exacerbation of chronic obstructive airways disease Current Visit: No Status: Acute Code(s): J44.1 - CHRONIC OBSTRUCTIVE PULMONARY DISEASE W (ACUTE) EXACERBATION SNOMED Code(s): 656777203 (3) Community acquired pneumonia Current Visit: No Status: Acute Code(s): J18.9 - PNEUMONIA, UNSPECIFIED ORGANISM SNOMED Code(s): 038745899 (4) DVT, bilateral lower limbs Current Visit: Yes Status: Acute Code(s): I82.403 - ACUTE EMBOLISM AND TH OMBOS UNSP DEEP VEINS OF LOW EXTRM, BI SNOMED Code(s): 844397354 (5) Hemoptysis Current Visit: Yes Status: Acute Code(s): R04.2 - HEMOPTYSIS SNOMED Code(s): 64804937 (6) Unintentional weight loss Current Visit: Yes Status: Acute Code(s): R63.4 - ABNORMAL WEIGHT LOSS SNOMED Code(s): 979306243 (7) Atrial fibrillation Current Visit: No Status: Acute Code(s): I48.91 - UNSPECIFIED ATRIAL FIBRILLATION SNOMED Code(s): 04577920 (8) Coronary artery disease Current Visit: No Status: Acute Code(s): I25.10 - ATHSCL HEART DISEASE OF [place] CORONARY ARTERY W/O ANG PCTRS SNOMED Code(s): 71414171 (9) SVT (supraventricular tachycardia) Current Visit: No Status: Acute Code(s): I47.1 - SUPRAVENTRICULAR TACHYCARDIA SNOMED Code(s): 1853633 Plan: 1. Continue currently prescribed medication regimen. 2. Heparin drip for bilateral DVTs 3. Continue vancomycin and cefepime for right lower lobe pneumonia 4. Protonix for PPI prophylaxis 5. Aquaphor to bilateral heels for dry skin 6. Voltaren gel to bilateral toes 7. RICCARDO hose and waffle boots to lower extremities 8. She Steroids and nebulized bronchodilators. 9. We'll order lab work for tomorrow 10. We'll continue to monitor vitals and lab results and treat accordingly. 11. We will continue to follow closely and reassess again tomorrow Time with Patient: Greater than 30
[2020-11-16] MEDS ORDERED: DICLOFENAC SODIUM GEL 100 GM TUBE TOPICAL PRN (13:12)
--- NOTE | 2020-11-16 14:39 | P.PN ---
Subjective Progress Note Date: 11/16/20 Principal diagnosis: Pneumonia right greater than left 75-year-old male, who presents to the emergency department, on November 10, in the morning, complaining of respiratory distress, cough, shortness of breath, and difficulty breathing. The patient is not a particularly good historian. Apparently the patient has been sick for at least 10 days and may be a bit longer. He admits to cough, chest congestion, and phlegm production. The patient has received full coronavirus vaccination. He apparently the patient has a history of both CAD, and COPD. There is no fever or chills. He denies chest pain or chest discomfort. His appetite has been poor. His chest x-ray shows a substantial infiltrate in the right lower lobe, and on computed tomography scan, there was no pulmonary embolism, but there was pneumonia, and possibly a parapneumonic effusion. The patient's history includes CAD, pneumonia, COPD, angina, skin cancer, and thoracic aortic aneurysm, 4.2 cm in size. The patient is also had a cardiac catheterization with stent. Lab data includes a white count of 45.2, hemoglobin 13.1, hematocrit 39.5, platelet count 286,000. PT was 14, INR 1.4, PTT 24.6, and d-dimer was 32.67. Blood gases show a PaO2 of 122, pCO2 45, pH is 7.4. Sodium 139, potassium 4.7, chlorides 98, CO2 30, anion gap 11, BUN 41, creatinine 1.12, glucose 42, lactic acid 2.8, repeat 1.1, LDH 1990, C-reactive protein 40.8, troponin 0.126, and coronavirus testing, was negative. N-terminal proBNP was 3130. Chest x-ray and CAT scan of both reviewed. On 11/11/2020 patient seen in follow-up in the intensive care unit, he is awake and alert, he is moderately dyspneic with conversation, he is currently on 6 L of oxygen his pulse ox is 87-92%, is awake and alert, oriented 3, answering q uestions appropriately, he is pointing is infusing at a rate of 120 ML per hour, no other drips, he is on accommodation cefepime and vancomycin for bibasilar pneumonia right greater than left. He is tolerating oral intake, he sounds very congested on today's exam, not bringing up any sputum, today's chest x-ray showing bilateral airspace disease with some interval improvement. She was afebrile overnight, hemodynamically stable, he is sinus mechanism with a rate of 92. He is on breathing treatments. Today's labs have been reviewed showing trending white blood cell count to 33.8, hemoglobin of 11.4, is a d-dimer was quite elevated yesterday at 32.6, sodium is 140, potassium is 4.2, chloride is 104, CO2 34, B1 is 20, creatinine 0.67, his troponins trended down with peripheral and down to 0.057. She was negative for COVID-19, his urinalysis showed no clear sign of infection. Per his blood cultures are negative. On 11/15/2020 patient seen in follow-up on medical surgical floor. He is resting comfortably in bed, remains on 6 L of oxygen his pulse ox of 95%, he is afebrile, hemodynamically stable, he remains on IV Solu-Medrol, he remains on cefepime and vancomycin, he has been given IV Lasix yesterday with improvement in his dyspnea. Chest x-ray shows bilateral pneumonia, with associated effusion, no significant change from previous chest x-ray, today's labs have been reviewed, sodium is 140, potassium is 3.6, chloride is 106, BUN is 26, creatinine 0.47. She had no fever or chills, no complaints of chest pain or hemoptysis. One of his blood cultures on 11/10/2020 was positive for alpha hemolytic streptococcus, follow blood cultures and sputum cultures have been negative The patient is seen today 11/16/2020 follow-up on the regular medical floor. He is awake and alert in no acute distress. He remains on a heparin drip for bilateral DVTs. He is currently on 6 L high flow nasal cannula to maintain O2 saturations in the 90s. Sputum culture reveals no growth. Blood culture reveals no growth. White count 25.2. Hemoglobin 9.6. Lymphocytes 0.6. Sodium 139. Potassium 3.6. Creatinine 0.41. AST 102. ALT 110. He remains on antibiotics in the form of vancomycin and cefepime. Continue on Symbicort, albuterol, IV site Medrol. Objective - Vital Signs Vital signs: Vital Signs Temp 97.9 F 11/16/20 07:23 Pulse 60 11/16/20 07:23 Resp 18 11/16/20 10:09 BP 137/76 11/16/20 07:23 Pulse Ox 99 11/16/20 07:23 Intake & Output 11/15/20 11/16/20 11/16/20 18:59 06:59 18:59 Intake Total 535.92 149.695 Output Total 400 200 Balance 135.92 -200 149.695 Intake: Intake, IV Titration 135.92 149.695 Amount Heparin Sod,Pork in 0.45% 135.92 149.695 NaCl 25,000 unit In 0.45 % NaCl 1 250ml.bag @ 18 UNITS/KG/HR 10.566 mls/hr IV .[id number] [facility] Rx#: [id number] Oral 400 Output: Urine 400 200 Other: Voiding Method Urinal External Catheter External Catheter - Exam GENERAL EXAM: Alert, pleasant 75-year-old gentleman, on 6 L nasal cannula, comfortable in no apparent distress. HEAD: Normocephalic. EYES: Normal reaction of pupils, equal size. NOSE: Clear with pink turbinates. THROAT: No erythema or exudates. NECK: No masses, no JVD. CHEST: No chest wall deformity. LUNGS: Equal air entry with bilateral crackles right greater than left. CVS: S1 and S2 normal with no audible murmur, regular rhythm. ABDOMEN: No hepatosplenomegaly, normal bowel sounds, no guarding or rigidity. SPINE: No scoliosis or deformity SKIN: No rashes CENTRAL NERVOUS SYSTEM: No focal deficits, tone is normal in all 4 extremities. EXTREMITIES: There is no peripheral edema. No clubbing, no cyanosis. Peripheral pulses are intact. - Labs CBC & Chem 7: 11/16/20 06:30 11/16/20 06:30 Labs: Abnormal Lab Results - Last 24 Hours (Table) 11/15/20 11/15/20 11/16/20 Range/Units 16:30 20:17 06:30 WBC (3.8-10.6) k/uL RBC (4.30-5.90) m/uL Hgb (13.0-17.5) gm/dL Hct (39.0-53.0) % Neutrophils # (1.3-7.7) k/uL Lymphocytes # (1.0-4.8) k/uL APTT (22.0-30.0) sec Chloride 108 H (98-107) mmol/L Carbon Dioxide 31 H (22-30) mmol/L BUN 27 H (9-20) mg/dL Creatinine 0.41 L (0.66-1.25) mg/dL Glucose 107 H (74-99) mg/dL POC Glucose (mg/dL) 155 H 135 H (75-99) mg/dL Calcium 7.5 L (8.4-10.2) mg/dL AST 102 H (17-59) U/L ALT 110 H (4-49) U/L Alkaline Phosphatase 186 H (38-126) U/L Total Protein 5.1 L (6.3-8.2) g/dL Albumin 2.3 L (3.5-5.0) g/dL 11/16/20 11/16/20 11/16/20 Range/Units 06:30 06:30 06:51 WBC 25.2 H (3.8-10.6) k/uL RBC 3.05 L (4.30-5.90) m/uL Hgb 9.6 L (13.0-17.5) gm/dL Hct 30.2 L (39.0-53.0) % Neutrophils # 24.2 H (1.3-7.7) k/uL Lymphocytes # 0.6 L (1.0-4.8) k/uL APTT 72.2 H (22.0-30.0) sec Chloride (98-107) mmol/L Carbon Dioxide (22-30) mmol/L BUN (9-20) mg/dL Creatinine (0.66-1.25) mg/dL Glucose (74-99) mg/dL POC Glucose (mg/dL) 121 H (75-99) mg/dL Calcium (8.4-10.2) mg/dL AST (17-59) U/L ALT (4-49) U/L Alkaline Phosphatase (38-126) U/L Total Protein (6.3-8.2) g/dL Albumin (3.5-5.0) g/dL 11/16/20 11/16/20 Range/Units 11:39 11:57 WBC (3.8-10.6) k/uL RBC (4.30-5.90) m/uL Hgb (13.0-17.5) gm/dL Hct (39.0-53.0) % Neutrophils # (1.3-7.7) k/uL Lymphocytes # (1.0-4.8) k/uL APTT 54.7 H (22.0-30.0) sec Chloride (98-107) mmol/L Carbon Dioxide (22-30) mmol/L BUN (9-20) mg/dL Creatinine (0.66-1.25) mg/dL Glucose (74-99) mg/dL POC Glucose (mg/dL) 124 H (75-99) mg/dL Calcium (8.4-10.2) mg/dL AST (17-59) U/L ALT (4-49) U/L Alkaline Phosphatase (38-126) U/L Total Protein (6.3-8.2) g/dL Albumin (3.5-5.0) g/dL Microbiology - Last 24 Hours (Table) 11/10/20 07:59 Blood Culture - Final Blood No Growth after 144 hours 11/10/20 07:43 Blood Culture Gram Stain - Final Blood Blood Culture - Final Alpha Hemolytic Streptococcus Non Hemolytic Strep 11/13/20 14:36 Blood Culture - Preliminary Blood No Growth after 48 hours 11/13/20 14:23 Blood Culture - Preliminary Blood No Growth after 48 hours Assessment and Plan Assessment: 1 Acute on chronic hypoxic respiratory failure secondary to right lower lobe pneumonia and a small right-sided parapneumonic effusion, rule out possibility of aspiration 2 History of stage IV COPD with recent FEV1 of 22% of predicted on home oxygen 2 L/m 3 Bilateral acute DVT is greater in the right lower extremity versus the left lower extremity, CTA chest showed no evidence of pulmonary embolism 4 Troponin leak 5 CAD with previous stenting 6 Hypertension 7 Hyperlipidemia 8 Thoracic aortic aneurysm 9 History of basal cell cancer with multiple lesions removed from his back and arms 10 Osteoporosis 11 Previous episodes of pneumonia Plan: The patient was seen and evaluated by Dr. Martin We'll discontinue heparin drip Initiate Xarelto Titrate down the FiO2 as tolerated Continue with current medications Increase his activity as tolerate We will continue to follow I, the cosigning physician, performed a history & physical examination of the patient. Lungs sounds bilateral crackles right greater than left. Maintaining good O2 saturations in the 90s on 6 L/m per nasal cannula. I discussed the assessment and plan of care with my nurse practitioner, Mora Gold. I attest to the above note as dictated by her.
[2020-11-16 16:51] LABS: Glucose,Whole Blood 120 mg/dL (75-99)
[2020-11-16] MEDS: RIVAROXABAN 15 MG TAB PO SCH (17:57)
[2020-11-16 20:26] LABS: Glucose,Whole Blood 146 mg/dL (75-99)
[2020-11-17] MEDS: methylPREDNISolone SOD SUCCI 125 MG/2 ML VIAL IV SCH ×5 (00:39→23:35)
[2020-11-17] MEDS: CEFEPIME 2 GM in SODIUM CHLORIDE 0.9% 100 ML IVPB SCH ×4 (00:40→23:36)
[2020-11-17] MEDS: SODIUM CHLORIDE 0.9% 1,000 ML IV SCH ×4 (03:52→23:42)
[2020-11-17] MEDS ORDERED: VANCOMYCIN TROUGH DUE 1 EACH MISC MISCELLANE ONE (05:00)
[2020-11-17] MEDS: VANCOMYCIN 1,000 MG in SODIUM CHLORIDE 0.9% 250 ML IVPB SCH ×2 (06:19→17:49)
[2020-11-17 06:29] LABS: African American GFR (CKD) >90 (>60 ml/min/1.73 sqM); Non-African American GFR(CKD) >90 (>60 ml/min/1.73 sqM)
[2020-11-17 06:48] LABS: Glucose,Whole Blood 104 mg/dL (75-99)
[2020-11-17] MEDS: ALBUTEROL HFA INHALER INHALATION SCH ×4 (07:21→20:06)
[2020-11-17] MEDS: SYMBICORT 160-4.5 MCG INHALER INHALATION SCH ×2 (07:21→20:06)
[2020-11-17] MEDS: TIOTROPIUM 2.5 MCG INHALER INHALATION SCH (07:21)
[2020-11-17] MEDS: PANTOPRAZOLE 40 MG TABLET PO SCH (09:50)
[2020-11-17] MEDS: RIVAROXABAN 15 MG TAB PO SCH ×2 (09:50→17:48)
[2020-11-17] MEDS: atenoloL 25 MG TAB PO SCH (09:50)
[2020-11-17 11:47] LABS: Glucose,Whole Blood 148 mg/dL (75-99)
[2020-11-17] MEDS: FUROSEMIDE 10 MG/ML 4 ML VIAL IV SCH (13:30)
--- NOTE | 2020-11-17 14:50 | P.PN ---
Subjective Progress Note Date: 11/17/20 This is 75-year-old gentleman with history of CAD, prior cardiac cath with stenting, advanced COPD/emphysema, pneumonia, skin cancer, thoracic aortic aneurysm, alcohol use and multiple other medical issues presented to the ER with complaints of worsening difficulty breathing, productive cough, chest pressure for approximately 10 days or longer. Patient reports he received both coronavirus vaccines, last one received 2 weeks ago. Denies fever or chills. Reports poor appetite. Denies nausea vomiting or diarrhea. Denies abdominal pain. Chest x-ray consistent with underlying COPD, extensive emphysema no pneumothorax, bilateral patchy airspace disease greater on the right, prominence of the pulmonary arteries consistent with underlying pulmonary artery hypertension, aortia dense and ectatic. 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 T-max 100.2, WBC 45.2. Hemoglobin 13.1, platelets 286 and MCV 98.8, d-dimer is 32.67, sodium 139, potassium 4.7, CO2 30, BUN 41, creatinine 1.12 ,glucose 42 on admission currently 127, lactic acid 2.8, calcium 8.3, magnesium 2 ferritin pending, total bili 0.7, AST 140 alk phos 217 ALT 48 LDH 1990, troponin 0.126, CRP 40.8, BNP 3130, ABGs noted. EKG reporting sinus tachycardia, PACs.Tested negative for coronavirus,Received vancomycin, cefepime and steroids in the ER. 11/11/2020 apparently patient wears 2-1/2 L at home and states that his had bumped his oxygen up to 4 prior to his admission. Significant weight loss reporting greater than 40 pounds in 6 months to the last year. 2 teeth broke off approximately 4 weeks ago, states he did not swallow them. Maintained on cefepime and vancomycin. Afebrile, WBC trending down, BUN 28, creatinine 0.67. Preliminary blood cultures reporting no growth at 24 hours. Hemoglobin 11.4, platelets 194. 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 Evaluated by speech therapy, scheduled for MBS, ruling out aspiration. Chest CT on admission suggestive of abdominal aortic dissection .Evaluated by vascular surgery, CTA with runoff ordered. CT angiogram of abdomen and aorta with runoff reported no evidence of abdominal aortic aneurysm or dissection, short focal dissection of left common iliac artery, 3 vessel runoff to bilateral feet. Troponin 0.126, 0.075, 0.057. 11/12/2020 transferred out of ICU yesterday to telemetry unit .Yesterday developed a brief episode of asymptomatic paroximal atrial fibrillation with RVR with heart rate up into the 160s and converted back to sinus rhythm. Maintained on beta anastacio. oxygen requirements mildly worsened requiring high flow 6 L nasal cannula maintaining O2 sats in the low 90s. Chest x-ray reporting similar to prior, underlying emphysema. Hemoglobin trending down down to 10.7, platelets 190. Stool for occult blood negative. Evaluated by GI with recommendations noted and appreciated including EGD and colonoscopy once respiratory status stabilizes. Maintained on antibiotics, nebulized bronchodilators and steroids. Blood sugars controlled. blood cultures and sputum culture finalizing. Afebrile, WBC trending down to 29.6. 11/13/2020 mild respiratory distress this morning, desatted into the 80s, fluids KVO'd, received a dose of Lasix IVP. Significant improvement, now maintaining O2 sats in the mid 90s. Declined MBS. Continues to have productive cough with blood-tinged sputum. Afebrile, WBC trending down 21.4. Hemoglobin 10.2, platelets 202. Diet intake 25%. BUN 23, creatinine 0.49. Blood sugars stable. LDH trending down, 1284, CRP trending down 13.9. Denies any chest pain, palpitations. Denies any nausea vomiting or diarrhea. Denies any abdominal pain 11/14/2020 no overnight events. Continues on 6 L high flow nasal cannula, maintaining O2 sats of 92-97%. Sputum cultures reported moderate normal respiratory gretel. Blood cultures reporting streptococcus species, finalizing. Continues on cefepime, vancomycin. BUN 25, creatinine 0.43. Diet intake increased yesterday ,Consumed 50% of lunch and dinner. Breakfast intake pending. Denies any chest pain, palpitations. Afebrile. 11/17/2020 maintained on vancomycin, cefepime. Creatinine pending. Anticoagulation converted to Xarelto. Continue on 6 L high flow nasal cannula maintaining O2 sats in the mid to high 90s. Afebrile. Blood and sputum cultures reporting no growth . WBC yesterday 25.2 .Consuming 100% of breakfast. Declining MBS. Objective - Vital Signs Vital signs: Vital Signs Temp 97.8 F 11/17/20 07:04 Pulse 53 L 11/17/20 07:04 Resp 19 11/17/20 08:00 BP 129/70 11/17/20 07:04 Pulse Ox 96 11/17/20 07:04 Intake & Output 11/16/20 11/17/20 11/17/20 18:59 06:59 18:59 Intake Total 449.695 Output Total 300 Balance 449.695 -300 Intake: Intake, IV Titration 149.695 Amount Heparin Sod,Pork in 0.45% 149.695 NaCl 25,000 unit In 0.45 % NaCl 1 250ml.bag @ 18 UNITS/KG/HR 10.566 mls/hr IV .[id number] [facility] Rx#: [id number] Oral 300 Output: Urine 300 Other: Voiding Method External Catheter External Catheter External Catheter - Exam PHYSICAL EXAM: VITAL SIGNS: [As above] GENERAL: Alert and oriented 3, Sitting up in bed, NAD, hoarse, weak HEENT: Conjunctivae normal. eyes normal. NECK: Supple, No JVD. CARDIOVASCULAR: S1, S2 regular. No murmur, gallops or rubs RESPIRATION: Congested. Breath sounds diminished in the bases witih bilateral crackles ABDOMEN: Soft, nontender . No guarding. no masses palpable. Bowel sounds heard. LEGS: Positive edema. No clubbing, no cyanosis. NERVOUS SYSTEM: Cranial N 2-12 grossly normal. No focal deficits. Weak. Skin: Warm and dry, no rash - Labs CBC & Chem 7: 11/16/20 06:30 11/17/20 05:12 Labs: Abnormal Lab Results - Last 24 Hours (Table) 11/16/20 11/16/20 11/17/20 Range/Units 16:49 20:24 05:12 Creatinine 0.48 L (0.66-1.25) mg/dL POC Glucose (mg/dL) 120 H 146 H (75-99) mg/dL 11/17/20 11/17/20 Range/Units 06:46 11:44 Creatinine (0.66-1.25) mg/dL POC Glucose (mg/dL) 104 H 148 H (75-99) mg/dL Microbiology - Last 24 Hours (Table) 11/13/20 14:23 Blood Culture - Preliminary Blood No Growth after 72 hours 11/13/20 14:36 Blood Culture - Preliminary Blood No Growth after 72 hours 11/10/20 07:59 Blood Culture - Final Blood No Growth after 144 hours Assessment and Plan Assessment: Acute on chronic hypoxic respiratory failure, secondary to right lower lobe pneumonia and small right-sided parapneumonic effusion. Reports he normally wears 2-1/2 L at home. Bacteremia, strept species Possible aspiration pneumonia, MBS -patient declining Bilateral lower extremity acute DVTs No PE , reported per CT Elevated troponin, suspect related to hypoxia, acute coronary syndrome ruled out as per cardiology Paroxysmal atrial fibrillation, chronic Significant unintentional weight loss of 40 pounds in the last 6-12 months, reported. Follow-up with GI outpatient for potential diagnostic EGD and colonoscopy. 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 History of angina pectoris CAD with history of stenting Pulmonary hypertension Hyperlipidemia History of SVT Gastroesophageal reflux disease Alcohol use History of basal cell skin cancer Former nicotine dependence 4 mm right kidney nonobstructing stone per CTA Osteoporosis Plan: Continue current medication regime , PPI, monitoring and symptomatic treatment. Strict aspiration precautions, continue to decline MBS. Anticoagu lated on Xarelto. Maintained on IV antibiotics, nebulized bronchodilators, steroids. Subacute rehab at discharge. Creatinine pending, a repeat labs ordered for tomorrow. Prognosis guarded given multiple complex medical issues. The impression and plan of care has been dictated as directed. : I performed a history and examination of this patient, discussed the same with the dictator. I agree with the dictator's note ,documented as a scribe. Any additional findings or plans will be noted.
[2020-11-17 16:42] LABS: Glucose,Whole Blood 134 mg/dL (75-99)
--- NOTE | 2020-11-17 17:15 | P.PN ---
Subjective Progress Note Date: 11/17/20 Principal diagnosis: Pneumonia, right lung greater than left 75-year-old male, who presents to the emergency department, on November 10, in the morning, complaining of respiratory distress, cough, shortness of breath, and difficulty breathing. The patient is not a particularly good historian. Apparently the patient has been sick for at least 10 days and may be a bit longer. He admits to cough, chest congestion, and phlegm production. The patient has received full coronavirus vaccination. He apparently the patient has a history of both CAD, and COPD. There is no fever or chills. He denies chest pain or chest discomfort. His appetite has been poor. His chest x-ray s hows a substantial infiltrate in the right lower lobe, and on computed tomography scan, there was no pulmonary embolism, but there was pneumonia, and possibly a parapneumonic effusion. The patient's history includes CAD, pneumonia, COPD, angina, skin cancer, and thoracic aortic aneurysm, 4.2 cm in size. The patient is also had a cardiac catheterization with stent. Lab data includes a white count of 45.2, hemoglobin 13.1, hematocrit 39.5, platelet count 286,000. PT was 14, INR 1.4, PTT 24.6, and d-dimer was 32.67. Blood gases show a PaO2 of 122, pCO2 45, pH is 7.4. Sodium 139, potassium 4.7, chlorides 98, CO2 30, anion gap 11, BUN 41, creatinine 1.12, glucose 42, lactic acid 2.8, repeat 1.1, LDH 1990, C-reactive protein 40.8, troponin 0.126, and coronavirus testing, was negative. N-terminal proBNP was 3130. Chest x-ray and CAT scan of both reviewed. On 11/11/2020 patient seen in follow-up in the intensive care unit, he is awake and alert, he is moderately dyspneic with conversation, he is currently on 6 L of oxygen his pulse ox is 87-92%, is awake and alert, oriented 3, answering questions appropriately, he is pointing is infusing at a rate of 120 ML per hour, no other drips, he is on accommodation cefepime and vancomycin for bibasilar pneumonia right greater than left. He is tolerating oral intake, he sounds very congested on today's exam, not bringing up any sputum, today's chest x-ray showing bilateral airspace disease with some interval improvement. She was afebrile overnight, hemodynamically stable, he is sinus mechanism with a rate of 92. He is on breathing treatments. Today's labs have been reviewed showing trending white blood cell count to 33.8, hemoglobin of 11.4, is a d- dimer was quite elevated yesterday at 32.6, sodium is 140, potassium is 4.2, chloride is 104, CO2 34, B1 is 20, creatinine 0.67, his troponins trended down with peripheral and down to 0.057. She was negative for COVID-19, his urinalysis showed no clear sign of infection. Per his blood cultures are negative. On 11/15/2020 patient seen in follow-up on medical surgical floor. He is resting comfortably in bed, remains on 6 L of oxygen his pulse ox of 95%, he is afebrile, hemodynamically stable, he remains on IV Solu-Medrol, he remains on cefepime and vancomycin, he has been given IV Lasix yesterday with improvement in his dyspnea. Chest x-ray shows bilateral pneumonia, with associated effusion, no significant change from previous chest x-ray, today's labs have been reviewed, sodium is 140, potassium is 3.6, chloride is 106, BUN is 26, creatinine 0.47. She had no fever or chills, no complaints of chest pain or hemoptysis. One of his blood cultures on 11/10/2020 was positive for alpha hemolytic streptococcus, follow blood cultures and sputum cultures have been negative On 11/17/2020 patient seen in follow-up on medical surgical floor. He is resting comfortably in bed, currently on 6 L of oxygen, his pulse ox is 98% and this can probably be weaned down further, he normally wears 4 L of oxygen at home on a regular basis, he is mildly short of breath, he still has chest congestion, and his lung sounds are positive for scattered rhonchi and wheezing, he appears to be generally swollen as well, his last chest x-ray was on 11/15/2020 showing bilateral pneumonia with associated oral effusions, on the background of emphysema. No new labs today, yesterday's labs have been reviewed, white blood cell count was 25.2, hemoglobin was 9.6, sodium is 139, potassium 3.6, chloride was 108, CO2 was 31, BUN was 27, creatinine was 0.41, AST was 102, ALT was 110, alkaline phosphatase was 186. Patient is on cefepime and vancomycin, he is on IV Solu-Medrol 60 mg every 6 hours, and he is on oral anticoagulation in the form of Xarelto. His blood culture from 11/10/2020 showed alphahemolytic streptococcus, nonhemolytic strep, follow blood cultures have been negative Objective - Vital Signs Vital signs: Vital Signs Temp 98.1 F 11/17/20 13:54 Pulse 56 L 11/17/20 13:54 Resp 18 11/17/20 13:54 BP 118/69 11/17/20 13:54 Pulse Ox 98 11/17/20 13:54 Intake & Output 11/16/20 11/17/20 11/17/20 18:59 06:59 18:59 Intake Total 449.695 Output Total 300 Balance 449.695 -300 Intake: Intake, IV Titration 149.695 Amount Heparin Sod,Pork in 0.45% 149.695 NaCl 25,000 unit In 0.45 % NaCl 1 250ml.bag @ 18 UNITS/KG/HR 10.566 mls/hr IV .[id number] [facility] Rx#: [id number] Oral 300 Output: Urine 300 Other: Voiding Method External Catheter External Catheter External Catheter - Exam GENERAL EXAM: Alert, very pleasant, 75-year-old white male, on 6 L of oxygen with pulse ox between 98%, moderately dyspneic with conversation, and even trying to eat patient seems to be short of breath, sounds congested comfortable in no apparent distress. HEAD: Normocephalic/atraumatic. EYES: Normal reaction of pupils, equal size. Conjunctiva pink, sclera white. NOSE: Clear with pink turbinates. THROAT: No erythema or exudates. NECK: No masses, no JVD, no thyroid enlargement, no adenopathy. CHEST: No chest wall deformity. Symmetrical expansion. LUNGS: Equal air entry with bibasilar crackles, congested cough, CVS: Regular rate and rhythm, normal S1 and S2, no gallops, no murmurs, no rubs ABDOMEN: Soft, nontender. No hepatosplenomegaly, normal bowel sounds, no guarding or rigidity. EXTREMITIES: No clubbing, generally swollen no cyanosis, 2+ pulses and upper and lower extremities. MUSCULOSKELETAL: Muscle strength and tone normal. SPINE: No scoliosis or deformity SKIN: No rashes CENTRAL NERVOUS SYSTEM: Alert and oriented -3. No focal deficits, tone is normal in all 4 extremities. PSYCHIATRIC: Alert and oriented -3. Appropriate affect. Intact judgment and insight. - Labs CBC & Chem 7: 11/16/20 06:30 11/17/20 05:12 Labs: Abnormal Lab Results - Last 24 Hours (Table) 11/16/20 11/17/20 11/17/20 Range/Units 20:24 05:12 06:46 Creatinine 0.48 L (0.66-1.25) mg/dL POC Glucose (mg/dL) 146 H 104 H (75-99) mg/dL 11/17/20 11/17/20 Range/Units 11:44 16:40 Creatinine (0.66-1.25) mg/dL POC Glucose (mg/dL) 148 H 134 H (75-99) mg/dL Microbiology - Last 24 Hours (Table) 11/13/20 14:23 Blood Culture - Preliminary Blood No Growth after 72 hours 11/13/20 14:36 Blood Culture - Preliminary Blood No Growth after 72 hours Assessment and Plan Plan: Assessment: #1. Acute on chronic hypoxic respiratory failure secondary to right lower lobe pneumonia and a small right-sided parapneumonic effusion, rule out possibility of aspiration #2. History of stage IV COPD with recent FEV1 of 22% of predicted on home oxygen 2 L/m #3. Bilateral acute DVT is greater in the right lower extremity versus the left lower extremity, CTA chest showed no evidence of pulmonary embolism #4. Troponin leak #5. CAD with previous stenting #6. Hypertension #7. Hyperlipidemia #8. Thoracic aortic aneurysm . Patient follows with Dr. Ramos: #9. History of basal cell cancer with multiple lesions removed from his back and arms #10. Osteoporosis #11. Previous episodes of pneumonia Plan: Continue current antibiotics And daily dose of Lasix 40 milligrams daily Vital signs are stable, wean FiO2 Follow-up chest x-ray tomorrow Clinically seems to be improving, but seems to be fluid overloaded We'll diurese, follow-up basic labs tomorrow I performed a history & physical examination of the patient and discussed their management with my nurse practitioner, Cookie Mason. I reviewed the nurse practitioner's note and agree with the documented findings and plan of care. Lung sounds are positive for diffuse rhonchi. The findings and the impression was discussed with the patient. I attest to the documentation by the nurse practitioner. Time with Patient: Less than 30
[2020-11-17 21:02] LABS: Glucose,Whole Blood 149 mg/dL (75-99)
[2020-11-18] MEDS: methylPREDNISolone SOD SUCCI 125 MG/2 ML VIAL IV SCH ×2 (05:17→10:01)
[2020-11-18] MEDS: VANCOMYCIN 1,000 MG in SODIUM CHLORIDE 0.9% 250 ML IVPB SCH (05:18)
--- NOTE | 2020-11-18 06:59 | XR ---
EXAMINATION TYPE: XR chest 1V portable DATE OF EXAM: 11/18/2020 COMPARISON: 11/15/2020 HISTORY: Difficulty breathing TECHNIQUE: Single frontal view of the chest is obtained. FINDINGS: Underlying COPD noted with interstitial and alveolar infiltrates. Bilateral pleural effusi on. No pneumothorax. Heart size stable. Atherosclerotic change aorta. Diffuse osteopenia. There is a 7 mm left upper lobe pulmonary nodule. IMPRESSION: 1. COPD with bilateral areas of infiltrate and pleural effusion stable. 2. 7 mm left upper lobe pulmonary nodule.
[2020-11-18] MEDS: SYMBICORT 160-4.5 MCG INHALER INHALATION SCH ×2 (07:13→20:21)
[2020-11-18] MEDS: TIOTROPIUM 2.5 MCG INHALER INHALATION SCH (07:13)
[2020-11-18] MEDS: ALBUTEROL HFA INHALER INHALATION SCH ×4 (07:13→20:21)
[2020-11-18 07:20] LABS: ALT 113 U/L (4-49); AST 88 U/L (17-59); African American GFR (CKD) >90 (>60 ml/min/1.73 sqM); Albumin 2.3 g/dL (3.5-5.0); Albumin/Globulin Ratio 0.9; Alkaline Phosphatase 167 U/L (38-126); Anion Gap 1 mmol/L; Blood Urea Nitrogen 24 mg/dL (9-20); Calcium 7.2 mg/dL (8.4-10.2); Carbon Dioxide 36 mmol/L (22-30); Chloride 100 mmol/L (98-107); Globulin 2.6 g/dL; Glucose 96 mg/dL (74-99); Non-African American GFR(CKD) >90 (>60 ml/min/1.73 sqM); Potassium 3.6 mmol/L (3.5-5.1); Sodium 137 mmol/L (137-145); Total Bilirubin 0.4 mg/dL (0.2-1.3); Total Protein 4.9 g/dL (6.3-8.2)
[2020-11-18 08:19] LABS: Glucose,Whole Blood 110 mg/dL (75-99)
[2020-11-18] MEDS: FUROSEMIDE 10 MG/ML 4 ML VIAL IV SCH (10:01)
[2020-11-18] MEDS: atenoloL 25 MG TAB PO SCH (10:02)
[2020-11-18] MEDS: CEFEPIME 2 GM in SODIUM CHLORIDE 0.9% 100 ML IVPB SCH ×3 (10:02→23:22)
[2020-11-18] MEDS: RIVAROXABAN 15 MG TAB PO SCH ×2 (10:02→17:06)
[2020-11-18 10:27] LABS: HGB 9.5 g/dL (13.0-17.0); MCH 31.7 pg (27.0-32.0); MCHC 31.7 g/dL (32.0-37.0); Platelet Count 252 X 10*3/uL (140-440); RDW 12.9 % (11.5-14.5)
[2020-11-18 10:55] LABS: Basophils # (A) 0.03 X 10*3/uL (0.00-0.10); Basophils % (A) 0.1 %; Eosinophils # (A) 0 X 10*3/uL (0.04-0.35); Eosinophils % (A) 0 %; Lymphocytes # (A) 0.39 X 10*3/uL (0.90-5.00); Lymphocytes % (A) 1.3 %; Monocytes # (A) 0.48 X 10*3/uL (0.20-1.00); Monocytes % (A) 1.6 %; Neutrophils # (A) 27.41 X 10*3/uL (1.80-7.70)
[2020-11-18] MEDS: SODIUM CHLORIDE 0.9% 1,000 ML IV SCH ×2 (11:03→17:08)
--- NOTE | 2020-11-18 12:40 | P.PN ---
Subjective Progress Note Date: 11/18/20 Principal diagnosis: Pneumonia, right lung greater than left 75-year-old male, who presents to the emergency department, on November 10, in the morning, complaining of respiratory distress, cough, shortness of breath, and difficulty breathing. The patient is not a particularly good historian. Apparently the patient has been sick for at least 10 days and may be a bit longer. He admits to cough, chest congestion, and phlegm production. The patient has received full coronavirus vaccination. He apparently the patient has a history of both CAD, and COPD. There is no fever or chills. He denies chest pain or chest discomfort. His appetite has been poor. His chest x-ray s hows a substantial infiltrate in the right lower lobe, and on computed tomography scan, there was no pulmonary embolism, but there was pneumonia, and possibly a parapneumonic effusion. The patient's history includes CAD, pneumonia, COPD, angina, skin cancer, and thoracic aortic aneurysm, 4.2 cm in size. The patient is also had a cardiac catheterization with stent. Lab data includes a white count of 45.2, hemoglobin 13.1, hematocrit 39.5, platelet count 286,000. PT was 14, INR 1.4, PTT 24.6, and d-dimer was 32.67. Blood gases show a PaO2 of 122, pCO2 45, pH is 7.4. Sodium 139, potassium 4.7, chlorides 98, CO2 30, anion gap 11, BUN 41, creatinine 1.12, glucose 42, lactic acid 2.8, repeat 1.1, LDH 1990, C-reactive protein 40.8, troponin 0.126, and coronavirus testing, was negative. N-terminal proBNP was 3130. Chest x-ray and CAT scan of both reviewed. On 11/11/2020 patient seen in follow-up in the intensive care unit, he is awake and alert, he is moderately dyspneic with conversation, he is currently on 6 L of oxygen his pulse ox is 87-92%, is awake and alert, oriented 3, answering questions appropriately, he is pointing is infusing at a rate of 120 ML per hour, no other drips, he is on accommodation cefepime and vancomycin for bibasilar pneumonia right greater than left. He is tolerating oral intake, he sounds very congested on today's exam, not bringing up any sputum, today's chest x-ray showing bilateral airspace disease with some interval improvement. She was afebrile overnight, hemodynamically stable, he is sinus mechanism with a rate of 92. He is on breathing treatments. Today's labs have been reviewed showing trending white blood cell count to 33.8, hemoglobin of 11.4, is a d- dimer was quite elevated yesterday at 32.6, sodium is 140, potassium is 4.2, chloride is 104, CO2 34, B1 is 20, creatinine 0.67, his troponins trended down with peripheral and down to 0.057. She was negative for COVID-19, his urinalysis showed no clear sign of infection. Per his blood cultures are negative. On 11/15/2020 patient seen in follow-up on medical surgical floor. He is resting comfortably in bed, remains on 6 L of oxygen his pulse ox of 95%, he is afebrile, hemodynamically stable, he remains on IV Solu-Medrol, he remains on cefepime and vancomycin, he has been given IV Lasix yesterday with improvement in his dyspnea. Chest x-ray shows bilateral pneumonia, with associated effusion, no significant change from previous chest x-ray, today's labs have been reviewed, sodium is 140, potassium is 3.6, chloride is 106, BUN is 26, creatinine 0.47. She had no fever or chills, no complaints of chest pain or hemoptysis. One of his blood cultures on 11/10/2020 was positive for alpha hemolytic streptococcus, follow blood cultures and sputum cultures have been negative On 11/17/2020 patient seen in follow-up on medical surgical floor. He is resting comfortably in bed, currently on 6 L of oxygen, his pulse ox is 98% and this can probably be weaned down further, he normally wears 4 L of oxygen at home on a regular basis, he is mildly short of breath, he still has chest congestion, and his lung sounds are positive for scattered rhonchi and wheezing, he appears to be generally swollen as well, his last chest x-ray was on 11/15/2020 showing bilateral pneumonia with associated oral effusions, on the background of emphysema. No new labs today, yesterday's labs have been reviewed, white blood cell count was 25.2, hemoglobin was 9.6, sodium is 139, potassium 3.6, chloride was 108, CO2 was 31, BUN was 27, creatinine was 0.41, AST was 102, ALT was 110, alkaline phosphatase was 186. Patient is on cefepime and vancomycin, he is on IV Solu-Medrol 60 mg every 6 hours, and he is on oral anticoagulation in the form of Xarelto. His blood culture from 11/10/2020 showed alphahemolytic streptococcus, nonhemolytic strep, follow blood cultures have been negative On 11/18/2020, patient seen in follow-up on medical surgical floor, he remains on 6 L of oxygen and his pulse ox is 97%, patient is afebrile, hemodynamically stable, remains on a combination of cefepime and vancomycin, yesterday we added a daily dose of Lasix, and patient is negative for 4.1 L net fluid balance over the last 24 hours. Today's labs have been reviewed, patient's white blood cell count is 29.2, hemoglobin is 9.5, sodium is 137, potassium is 3.6, chloride is 100, CO2 is 36, BUN is 24 creatinine 0.48. Pro-calcitonin level has improved and is down to 0.35 on yesterday's labs. No fever or chills, his FiO2 can probably further wean down. Looks weak overall, but states that his breathing is improved, occasionally brings up whitish colored phlegm. No hemoptysis, follow blood cultures have shown no growth, sputum culture was negative Objective - Vital Signs Vital signs: Vital Signs Temp 98 F 11/18/20 07:49 Pulse 55 L 11/18/20 08:00 Resp 14 11/18/20 08:00 BP 123/73 11/18/20 07:49 Pulse Ox 97 11/18/20 07:49 Intake & Output 11/17/20 11/18/20 11/18/20 18:59 06:59 18:59 Intake Total 296 Output Total 1100 3050 Balance -1099 -305 296 Intake: Oral 296 Output: Urine 1100 3050 Other: Voiding Method External Catheter External Catheter External Catheter - Exam GENERAL EXAM: Alert, very pleasant, 75-year-old white male, on 6 L of oxygen with pulse ox between 98%, mildly dyspneic with conversation, compared to yesterday's exam, patient is breathing more comfortably, less congested and wheezy on today's exam HEAD: Normocephalic/atraumatic. EYES: Normal reaction of pupils, equal size. Conjunctiva pink, sclera white. NOSE: Clear with pink turbinates. THROAT: No erythema or exudates. NECK: No masses, no JVD, no thyroid enlargement, no adenopathy. CHEST: No chest wall deformity. Symmetrical expansion. LUNGS: Equal air entry with bibasilar crackles, congested cough, CVS: Regular rate and rhythm, normal S1 and S2, no gallops, no murmurs, no rubs ABDOMEN: Soft, nontender. No hepatosplenomegaly, normal bowel sounds, no guarding or rigidity. EXTREMITIES: No clubbing, generally swollen no cyanosis, 2+ pulses and upper and lower extremities. MUSCULOSKELETAL: Muscle strength and tone normal. SPINE: No scoliosis or deformity SKIN: No rashes CENTRAL NERVOUS SYSTEM: Alert and oriented -3. No focal deficits, tone is normal in all 4 extremities. PSYCHIATRIC: Alert and oriented -3. Appropriate affect. Intact judgment and insight. - Labs CBC & Chem 7: 11/18/20 05:45 11/18/20 05:45 Labs: Abnormal Lab Results - Last 24 Hours (Table) 11/17/20 11/17/20 11/17/20 Range/Units 04:26 16:40 20:55 WBC (4.50-10.00) X 10*3/uL RBC (4.40-5.60) X 10*6/uL Hgb (13.0-17.0) g/dL Hct (39.6-50.0) % MCV (80.0-97.0) fL MCHC (32.0-37.0) g/dL Absolute Nucleated RBC (0.00-0.00) X 10*3/uL Immature Gran # (0.00-0.04) X 10*3/uL Neutrophils # (1.80-7.70) X 10*3/uL Lymphocytes # (0.90-5.00) X 10*3/uL Eosinophils # (0.04-0.35) X 10*3/uL NRBC/100 WBC Diff (0.0-0.0) /100 WBCS Carbon Dioxide (22-30) mmol/L BUN (9-20) mg/dL Creatinine (0.66-1.25) mg/dL POC Glucose (mg/dL) 134 H 149 H (75-99) mg/dL Calcium (8.4-10.2) mg/dL AST (17-59) U/L ALT (4-49) U/L Alkaline Phosphatase (38-126) U/L Total Protein (6.3-8.2) g/dL Albumin (3.5-5.0) g/dL Procalcitonin 0.35 H (0.02-0.09) ng/mL 11/18/20 11/18/20 11/18/20 Range/Units 05:45 05:45 06:59 WBC 29.20 H (4.50-10.00) X 10*3/uL RBC 3.00 L (4.40-5.60) X 10*6/uL Hgb 9.5 L (13.0-17.0) g/dL Hct 30.0 L (39.6-50.0) % MCV 100.0 H (80.0-97.0) fL MCHC 31.7 L (32.0-37.0) g/dL Absolute Nucleated RBC 0.02 H (0.00-0.00) X 10*3/uL Immature Gran # 0.89 H (0.00-0.04) X 10*3/uL Neutrophils # 27.41 H (1.80-7.70) X 10*3/uL Lymphocytes # 0.39 L (0.90-5.00) X 10*3/uL Eosinophils # 0 L (0.04-0.35) X 10*3/uL NRBC/100 WBC Diff 0.1 H (0.0-0.0) /100 WBCS Carbon Dioxide 36 H (22-30) mmol/L BUN 24 H (9-20) mg/dL Creatinine 0.48 L (0.66-1.25) mg/dL POC Glucose (mg/dL) 110 H (75-99) mg/dL Calcium 7.2 L (8.4-10.2) mg/dL AST 88 H (17-59) U/L ALT 113 H (4-49) U/L Alkaline Phosphatase 167 H (38-126) U/L Total Protein 4.9 L (6.3-8.2) g/dL Albumin 2.3 L (3.5-5.0) g/dL Procalcitonin (0.02-0.09) ng/mL Microbiology - Last 24 Hours (Table) 11/13/20 14:36 Blood Culture - Preliminary Blood No Growth after 96 hours 11/13/20 14:23 Blood Culture - Preliminary Blood No Growth after 96 hours Assessment and Plan Plan: Assessment: #1. Acute on chronic hypoxic respiratory failure secondary to right lower lobe pneumonia and a small right-sided parapneumonic effusion, rule out possibility of aspiration #2. History of stage IV COPD with recent FEV1 of 22% of predicted on home oxygen 2 L/m #3. Bilateral acute DVT is greater in the right lower extremity versus the left lower extremity, CTA chest showed no evidence of pulmonary embolism #4. Troponin leak #5. CAD with previous stenting #6. Hypertension #7. Hyperlipidemia #8. Thoracic aortic aneurysm . Patient follows with Dr. Ramos: #9. History of basal cell cancer with multiple lesions removed from his back and arms #10. Osteoporosis #11. Previous episodes of pneumonia Plan: We'll cut back the Lasix to 20 mg daily by mouth, Continue cefepime Discontinue vancomycin Continue IV steroids, we'll cut back to 40 mg every 8 hours Follow-up basic labs, weaning FiO2 to maintain O2 saturations at or above 90% Daily weights, follow-up chest x-ray Continue oral anticoagulation Physical therapy consultation I performed a history & physical examination of the patient and discussed their management with my nurse practitioner, Cookie Mason. I reviewed the nurse practitioner's note and agree with the documented findings and plan of care. Lung sounds are positive for diffuse rhonchi. The findings and the impression was discussed with the patient. I attest to the documentation by the nurse practitioner. Time with Patient: Less than 30
[2020-11-18] MEDS: PANTOPRAZOLE 40 MG TABLET PO SCH (13:10)
--- NOTE | 2020-11-18 15:23 | CDI ---
Documentation Clarification Form Date: 11/18/2020 03:05:54 PM From: Julia Ogden CCS, CCDS Admit Date: 11/10/2020 11:28:00 AM Patient Name: Bernard Quiñonez Visit Number: [id number] Discharge Date: ATTENTION: The Clinical Documentation Specialists (CDI) and [facility] Coding Staff appreciate your assistance in clarifying documentation. Please respond to the clarification below the line at the bottom and electronically sign. The CDI & [facility] Coding staff will review the response and follow-up if needed. Please note: Queries are made part of the Legal Health Record. If you have any questions, please contact the author of this message via ITS. Dr. Fritz Ibarra: Weakness & poor appetite is documented in the 11/10 Pulmonary/Critical Care consult. Poor appetite is also documented in the 11/10 History & Physical. Unintentional weight loss is documented in the 11/12 Gastrointestinal Consult and subsequent Progress Notes. Per the Attending Progress Notes beginning on 11/13, the patient is described as cachectic. Additional information is requested regarding the above documentation. History/Risk Factors per the 11/10 H/P: CAD, Angina, COPD/Emphysema, Osteoarthritis, Pneumonia, Basal Cell Skin Cancer, Thoracic Aortic Aneurysm, Hoarseness, Heart Catheterization With Stent. Clinical Indicators: Presented to the ED on 11/10 via EMS with SOB, cough, in respiratory distress, hypotensive, tachycardic & hypoxic. Received his second COVID vaccine 2 weeks ago. Not eating or drinking. Admitted with Leukocytosis, Sepsis due to Pneumonia. Current BMI: 19.9 Weight: 58.7 (bedscale), Height 5ft 10in. Underweight, IBW 75.296 kg. IBW % 84%. Nursing Nutritional Assessment 11/10: Refused snack, 24% Breakfast/Lunch, 100% Dinner. 11/18: Meeting 75% of nutrition goal. Appetite increased slightly, Supplemented with Magic Cups. Muscle tone: weak, limited movement, Fair Muscle Strength. Skin on feet cracked & dry. Treatment 11/10: IV Solumedrol, IV fluid 500 mls @ 999 mls/hr q31M x2, IV Cefepime, IV Azithromycin, IV Dextrose, IV Vancomycin, IV Protonix Dietary Consult: not consulted. Is there an additional diagnosis that is clinically appropriate for this patient? [ ] Mild Protein-Calorie Malnutrition [ ] Moderate Protein-Calorie Malnutrition [ ] Severe Protein-Calorie Malnutrition [ ] Other condition, please specify [ ] Unable to Determine (Template Last Revised: September 2020) Query response documented in 11/18 Attending Progress Note: Moderate Protein Calorie Malnutrition BMI 19.9. (11/19, CDS: LILI MICHEL
--- NOTE | 2020-11-18 15:38 | P.PN ---
Subjective Progress Note Date: 11/18/20 This is 75-year-old gentleman with history of CAD, prior cardiac cath with stenting, advanced COPD/emphysema, pneumonia, skin cancer, thoracic aortic aneurysm, alcohol use and multiple other medical issues presented to the ER with complaints of worsening difficulty breathing, productive cough, chest pressure for approximately 10 days or longer. Patient reports he received both coronavirus vaccines, last one received 2 weeks ago. Denies fever or chills. Reports poor appetite. Denies nausea vomiting or diarrhea. Denies abdominal pain. Chest x-ray consistent with underlying COPD, extensive emphysema no pneumothorax, bilateral patchy airspace disease greater on the right, prominence of the pulmonary arteries consistent with underlying pulmonary artery hypertension, aortia dense and ectatic. CTA reported no evidence for acute PE, advanced emphysematous change with worsening masslike consolidation right lower lobe, small complex loculated posterior right pleural fluid collection, dissection beginning in the distal thoracic aorta just above the diaphragm extending along the course of the entire visualized portion of the abdominal aorta-type B [place] or [place] type III abdominal aortic dissection, 4 mm nonobstructing stone admitted to the lower pole right kidney. T-max 100.2, WBC 45.2. Hemoglobin 13.1, platelets 286 and MCV 98.8, d-dimer is 32.67, sodium 139, potassium 4.7, CO2 30, BUN 41, creatinine 1.12 ,glucose 42 on admission currently 127, lactic acid 2.8, calcium 8.3, magnesium 2 ferritin pending, total bili 0.7, AST 140 alk phos 217 ALT 48 LDH 1990, troponin 0.126, CRP 40.8, BNP 3130, ABGs noted. EKG reporting sinus tachycardia, PACs.Tested negative for coronavirus,Received vancomycin, cefepime and steroids in the ER. 11/11/2020 apparently patient wears 2-1/2 L at home and states that his had bumped his oxygen up to 4 prior to his admission. Significant weight loss reporting greater than 40 pounds in 6 months to the last year. 2 teeth broke off approximately 4 weeks ago, states he did not swallow them. Maintained on cefepime and vancomycin. Afebrile, WBC trending down, BUN 28, creatinine 0.67. Preliminary blood cultures reporting no growth at 24 hours. Hemoglobin 11.4, platelets 194. 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 Evaluated by speech therapy, scheduled for MBS, ruling out aspiration. Chest CT on admission suggestive of abdominal aortic dissection .Evaluated by vascular surgery, CTA with runoff ordered. CT angiogram of abdomen and aorta with runoff reported no evidence of abdominal aortic aneurysm or dissection, short focal dissection of left common iliac artery, 3 vessel runoff to bilateral feet. Troponin 0.126, 0.075, 0.057. 11/12/2020 transferred out of ICU yesterday to telemetry unit .Yesterday developed a brief episode of asymptomatic paroximal atrial fibrillation with RVR with heart rate up into the 160s and converted back to sinus rhythm. Maintained on beta anastacio. oxygen requirements mildly worsened requiring high flow 6 L nasal cannula maintaining O2 sats in the low 90s. Chest x-ray reporting similar to prior, underlying emphysema. Hemoglobin trending down down to 10.7, platelets 190. Stool for occult blood negative. Evaluated by GI with recommendations noted and appreciated including EGD and colonoscopy once respiratory status stabilizes. Maintained on antibiotics, nebulized bronchodilators and steroids. Blood sugars controlled. blood cultures and sputum culture finalizing. Afebrile, WBC trending down to 29.6. 11/13/2020 mild respiratory distress this morning, desatted into the 80s, fluids KVO'd, received a dose of Lasix IVP. Significant improvement, now maintaining O2 sats in the mid 90s. Declined MBS. Continues to have productive cough with blood-tinged sputum. Afebrile, WBC trending down 21.4. Hemoglobin 10.2, platelets 202. Diet intake 25%. BUN 23, creatinine 0.49. Blood sugars stable. LDH trending down, 1284, CRP trending down 13.9. Denies any chest pain, palpitations. Denies any nausea vomiting or diarrhea. Denies any abdominal pain 11/14/2020 no overnight events. Continues on 6 L high flow nasal cannula, maintaining O2 sats of 92-97%. Sputum cultures reported moderate normal respiratory gretel. Blood cultures reporting streptococcus species, finalizing. Continues on cefepime, vancomycin. BUN 25, creatinine 0.43. Diet intake increased yesterday ,Consumed 50% of lunch and dinner. Breakfast intake pending. Denies any chest pain, palpitations. Afebrile. 11/17/2020 maintained on vancomycin, cefepime. Creatinine pending. Anticoagulation converted to Xarelto. Continue on 6 L high flow nasal cannula maintaining O2 sats in the mid to high 90s. Afebrile. Blood and sputum cultures reporting no growth . WBC yesterday 25.2 .Consuming 100% of breakfast. Declining MBS. 11/18/2020 maintaining O2 sats of 97% on 6 L high flow nasal cannula. Continues on cefepime. afebrile, WBC 29.2.Sputum culture negative. Productive cough, white sputum. Repeat Blood cultures reporting no growth.Diuresing well on Lasix with 24-hour I&O reflecting a negative fluid balance. Hemoglobin 9.5, platelets 252. BUN 24, creatinine 0.48. Blood sugars controlled. Denies chest pain, palpitations. Objective - Vital Signs Vital signs: Vital Signs Temp 97.7 F 11/18/20 14:00 Pulse 60 11/18/20 14:00 Resp 16 11/18/20 14:00 BP 108/64 11/18/20 14:00 Pulse Ox 95 11/18/20 14:00 Intake & Output 11/17/20 11/18/20 11/18/20 18:59 06:59 18:59 Intake Total 532 Output Total 1100 3050 800 Balance -1100 -3050 -268 Weight 63 kg Intake: Oral 532 Output: Urine 1100 3050 800 Other: Voiding Method External Catheter External Catheter External Catheter - Exam PHYSICAL EXAM: VITAL SIGNS: [As above] GENERAL: Alert and oriented 3, Sitting up in bed, NAD, hoarse HEENT: Conjunctivae normal. eyes normal. NECK: Supple, No JVD. CARDIOVASCULAR: S1, S2 regular. No murmur, gallops or rubs RESPIRATION: Less Congested. Breath sounds diminished in the bases witih scattered rhonchi, bilateral crackles ABDOMEN: Soft, nontender . No guarding. no masses palpable. Bowel sounds heard. LEGS: Positive edema. No clubbing, no cyanosis. NERVOUS SYSTEM: Cranial N 2-12 grossly normal. No focal deficits. Weak. Skin: Warm and dry, no rash - Labs CBC & Chem 7: 11/18/20 05:45 11/18/20 05:45 Labs: Abnormal Lab Results - Last 24 Hours (Table) 11/17/20 11/17/20 11/17/20 Range/Units 04:26 16:40 20:55 WBC (4.50-10.00) X 10*3/uL RBC (4.40-5.60) X 10*6/uL Hgb (13.0-17.0) g/dL Hct (39.6-50.0) % MCV (80.0-97.0) fL MCHC (32.0-37.0) g/dL Absolute Nucleated RBC (0.00-0.00) X 10*3/uL Immature Gran # (0.00-0.04) X 10*3/uL Neutrophils # (1.80-7.70) X 10*3/uL Lymphocytes # (0.90-5.00) X 10*3/uL Eosinophils # (0.04-0.35) X 10*3/uL NRBC/100 WBC Diff (0.0-0.0) /100 WBCS Carbon Dioxide (22-30) mmol/L BUN (9-20) mg/dL Creatinine (0.66-1.25) mg/dL POC Glucose (mg/dL) 134 H 149 H (75-99) mg/dL Calcium (8.4-10.2) mg/dL AST (17-59) U/L ALT (4-49) U/L Alkaline Phosphatase (38-126) U/L Total Protein (6.3-8.2) g/dL Albumin (3.5-5.0) g/dL Procalcitonin 0.35 H (0.02-0.09) ng/mL 11/18/20 11/18/20 11/18/20 Range/Units 05:45 05:45 06:59 WBC 29.20 H (4.50-10.00) X 10*3/uL RBC 3.00 L (4.40-5.60) X 10*6/uL Hgb 9.5 L (13.0-17.0) g/dL Hct 30.0 L (39.6-50.0) % MCV 100.0 H (80.0-97.0) fL MCHC 31.7 L (32.0-37.0) g/dL Absolute Nucleated RBC 0.02 H (0.00-0.00) X 10*3/uL Immature Gran # 0.89 H (0.00-0.04) X 10*3/uL Neutrophils # 27.41 H (1.80-7.70) X 10*3/uL Lymphocytes # 0.39 L (0.90-5.00) X 10*3/uL Eosinophils # 0 L (0.04-0.35) X 10*3/uL NRBC/100 WBC Diff 0.1 H (0.0-0.0) /100 WBCS Carbon Dioxide 36 H (22-30) mmol/L BUN 24 H (9-20) mg/dL Creatinine 0.48 L (0.66-1.25) mg/dL POC Glucose (mg/dL) 110 H (75-99) mg/dL Calcium 7.2 L (8.4-10.2) mg/dL AST 88 H (17-59) U/L ALT 113 H (4-49) U/L Alkaline Phosphatase 167 H (38-126) U/L Total Protein 4.9 L (6.3-8.2) g/dL Albumin 2.3 L (3.5-5.0) g/dL Procalcitonin (0.02-0.09) ng/mL Microbiology - Last 24 Hours (Table) 11/13/20 14:36 Blood Culture - Preliminary Blood No Growth after 96 hours 11/13/20 14:23 Blood Culture - Preliminary Blood No Growth after 96 hours Assessment and Plan Assessment: Acute on chronic hypoxic respiratory failure, secondary to right lower lobe pneumonia and small right-sided parapneumonic effusion. Reports he normally wears 2-1/2 L at home. Bacteremia, alphahemolytic streptococcus, non-hemolytic strep . Repeat blood cultures negative. Possible aspiration pneumonia, MBS pending Bilateral lower extremity acute DVTs No PE , reported per CT Elevated troponin, suspect related to hypoxia, acute coronary syndrome ruled out as per cardiology Paroxysmal atrial fibrillation, chronic Significant unintentional weight loss of 40 pounds in the last 6-12 months, reported. Follow-up with GI outpatient for potential diagnostic EGD and colonoscopy. Possible Alpha 1 antitrypsin deficiency, lab pending Hoarse voice X 1 yr, reports he previously had fungal infection of the vocal cords, further follow-up outpatient with ENT recommended Hemoptysis Advanced emphysema, COPD stage IV Chronic hypoxic, hypercapnic respiratory failure on home O2 Type B [place] or [place] type III abdominal aortic dissection reported per CT, evaluated by vascular surgery, CTA with runoff reported negative for thoracic aortic dissection or abdominal aortic aneurysm. History of angina pectoris CAD with history of stenting Pulmonary hypertension Hyperlipidemia History of SVT Gastroesophageal reflux disease Alcohol use History of basal cell skin cancer Former nicotine dependence 4 mm right kidney nonobstructing stone per CTA Osteoporosis Moderate protein calorie malnutrition, BMI 19.9 Plan: Continue current medication regime , PPI, monitoring and symptomatic treatment. Wean FiO2 as per established parameters. Anticoagulated on Xarelto. Maintained on IV antibiotics, nebulized bronchodilators, steroids. MBS pending. Subacute rehab at discharge. Prognosis guarded given multiple complex medical issues. The impression and plan of care has been dictated as directed. : I performed a history and examination of this patient, discussed the same with the dictator. I agree with the dictator's note ,documented as a scribe. Any additional findings or plans will be noted.
[2020-11-18] MEDS: methylPREDNISolone SOD SUCCI 40 MG/ML 1 ML VIAL IV SCH ×2 (17:07→23:21)
--- NOTE | 2020-11-18 21:32 | FL ---
EXAMINATION TYPE: FL barium swallow w video DATE OF EXAM: 11/18/2020 MODIFIED SWALLOW / DEGLUTITION STUDY CLINICAL HISTORY: Right lower lobe pneumonia. Rule out silent aspiration. TECHNIQUE: Deglutition study is performed utilizing thin liquid barium, honey and nectar thick liqui d barium, barium thick applesauce, and barium coated cracker. 1 minute 38 seconds of fluoro time and 0 images obtained. COMPARISON: None. FINDINGS: The oral and pharyngeal phases show satisfactory initiation and propagation with all modali ties tested. Satisfactory mastication is seen with solid modalities tested. There is no evidence of penetration or aspiration with any modality tested. Mild pharyngeal residue was appreciated with more viscous modalities. IMPRESSION: No aspiration identified. Please refer to speech therapist notes for further details if necessary.
[2020-11-19] MEDS: SODIUM CHLORIDE 0.9% 1,000 ML IV SCH ×3 (05:24→15:15)
[2020-11-19] MEDS: ALBUTEROL HFA INHALER INHALATION SCH ×4 (07:02→20:00)
[2020-11-19] MEDS: SYMBICORT 160-4.5 MCG INHALER INHALATION SCH ×2 (07:02→20:00)
[2020-11-19] MEDS: TIOTROPIUM 2.5 MCG INHALER INHALATION SCH ×2 (07:11→16:32)
[2020-11-19 08:15] LABS: Basophils # (A) 0.1 k/uL (0-0.2); Basophils % (A) 0 %; Eosinophils # (A) 0.1 k/uL (0-0.7); Eosinophils % (A) 0 %; HCT 35.9 % (39.0-53.0); HGB 11.6 gm/dL (13.0-17.5); Hypochromasia Slight; Lymphocytes # (A) 0.5 k/uL (1.0-4.8); Lymphocytes % (A) 1 %; MCH 31.7 pg (25.0-35.0); MCHC 32.3 g/dL (31.0-37.0); MCV 98.1 fL (80.0-100.0); Mean Platelet Volume 8.5; Monocytes # (A) 0.6 k/uL (0-1.0); Monocytes % (A) 2 %; Neutrophils % (A) 96 %; Platelet Count 287 k/uL (150-450); RBC 3.66 m/uL (4.30-5.90); RDW 13.5 % (11.5-15.5); WBC 36.4 k/uL (3.8-10.6)
[2020-11-19] MEDS: CEFEPIME 2 GM in SODIUM CHLORIDE 0.9% 100 ML IVPB SCH ×2 (08:29→15:16)
[2020-11-19] MEDS: methylPREDNISolone SOD SUCCI 40 MG/ML 1 ML VIAL IV SCH (08:29)
[2020-11-19] MEDS: atenoloL 25 MG TAB PO SCH (08:30)
[2020-11-19] MEDS: RIVAROXABAN 15 MG TAB PO SCH ×2 (08:30→17:23)
[2020-11-19] MEDS: FUROSEMIDE 20 MG TAB PO SCH (08:30)
[2020-11-19] MEDS: PANTOPRAZOLE 40 MG TABLET PO SCH (08:30)
[2020-11-19 08:35] LABS: African American GFR (CKD) >90 (>60 ml/min/1.73 sqM); Anion Gap 4 mmol/L; Blood Urea Nitrogen 27 mg/dL (9-20); Calcium 7.8 mg/dL (8.4-10.2); Carbon Dioxide 32 mmol/L (22-30); Chloride 99 mmol/L (98-107); Glucose 116 mg/dL (74-99); Non-African American GFR(CKD) >90 (>60 ml/min/1.73 sqM); Sodium 135 mmol/L (137-145)
[2020-11-19 08:36] LABS: Potassium 3.8 mmol/L (3.5-5.1)
--- NOTE | 2020-11-19 08:51 | XR ---
EXAMINATION TYPE: XR chest 1V portable DATE OF EXAM: 11/19/2020 COMPARISON: 11/18/2020 HISTORY: Pneumonia, cough TECHNIQUE: Single frontal view of the chest is obtained. FINDINGS: Underlying COPD noted with interstitial and alveolar infiltrates. Bilateral pleural effusi on. No pneumothorax. Heart size stable. Atherosclerotic change aorta. Diffuse osteopenia. There is a 7 mm left upper lobe pulmonary nodule. IMPRESSION: 1. COPD with bilateral areas of infiltrate and pleural effusion stable. 2. 7 mm left upper lobe pulmonary nodule.
--- NOTE | 2020-11-19 11:07 | P.DS ---
Providers Date of admission: 11/10/20 11:28 Expected date of discharge: 11/19/20 Attending physician: Fritz Ibarra Consults: 11/10/20 11:28 Consult Physician Stat Consulting Provider: Tami Martin Consult Reason/Comments: PNA Sepsis Do you want consulting provider notified?: Already Contacted 11/10/20 14:09 Consult Physician Routine Consulting Provider: Van Sofia Consult Reason/Comments: elevated troponin, hypoxia Do you want consulting provider notified?: Yes 11/11/20 12:49 Consult Physician Routine Consulting Provider: Vasile Gore Consult Reason/Comments: hoarseness Do you want consulting provider notified?: Yes Primary care physician: Brendan Chan Hospital Course: Final Diagnoses: Acute on chronic hypoxic respiratory failure, secondary to right lower lobe pneumonia and small right-sided parapneumonic effusion. Reports he normally wears 2-1/2 L at home. Bacteremia, alphahemolytic streptococcus, non-hemolytic strep . Repeat blood cultures negative. Possible aspiration pneumonia, MBS reported mild impairment oral pharyngeal swallow, no evidence of penetration and/or aspiration. Regular diet, thin liquids recommended Bilateral lower extremity acute DVTs No PE , reported per CT Elevated troponin, suspect related to hypoxia, acute coronary syndrome ruled out as per cardiology Paroxysmal atrial fibrillation, chronic Significant unintentional weight loss of 40 pounds in the last 6-12 months, reported. Follow-up with GI outpatient for potential diagnostic EGD and colonoscopy. 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 History of angina pectoris CAD with history of stenting Pulmonary hypertension Hyperlipidemia History of SVT Gastroesophageal reflux disease Alcohol use History of basal cell skin cancer Former nicotine dependence 4 mm right kidney nonobstructing stone per CTA Osteoporosis Moderate protein calorie malnutrition, BMI 19.9 Hospital course:Pneumonia, right lung greater than left 75-year-old male, who presents to the emergency department, on November 10, in the morning, complaining of respiratory distress, cough, shortness of breath, and difficulty breathing. The patient is not a particularly good historian. Apparently the patient has been sick for at least 10 days and may be a bit longer. He admits to cough, chest congestion, and phlegm production. The patient has received full coronavirus vaccination. He apparently the patient has a history of both CAD, and COPD. There is no fever or chills. He denies chest pain or chest discomfort. His appetite has been poor. His chest x-ray shows a substantial infiltrate in the right lower lobe, and on computed tomography scan, there was no pulmonary embolism, but there was pneumonia, and possibly a parapneumonic effusion. The patient's history includes CAD, pneumonia, COPD, angina, skin cancer, and thoracic aortic aneurysm, 4.2 cm in size. The patient is also had a cardiac catheterization with stent. Lab data includes a white count of 45.2, hemoglobin 13.1, hematocrit 39.5, platelet count 286,000. PT was 14, INR 1.4, PTT 24.6, and d-dimer was 32.67. Blood gases show a PaO2 of 122, pCO2 45, pH is 7.4. Sodium 139, potassium 4.7, chlorides 98, CO2 30, anion gap 11, BUN 41, creatinine 1.12, glucose 42, lactic acid 2.8, repeat 1.1, LDH 1990, C-reactive protein 40.8, troponin 0.126, and coronavirus testing, was negative. N-terminal proBNP was 3130. Chest x-ray and CAT scan of both reviewed. On 11/11/2020 patient seen in follow-up in the intensive care unit, he is awake and alert, he is moderately dyspneic with conversation, he is currently on 6 L of oxygen his pulse ox is 87-92%, is awake and alert, oriented 3, answering questions appropriately, he is pointing is infusing at a rate of 120 ML per hour, no other drips, he is on accommodation cefepime and vancomycin for bibasilar pneumonia right greater than left. He is tolerating oral intake, he sounds very congested on today's exam, not bringing up any sputum, today's chest x-ray showing bilateral airspace disease with some interval improvement. She was afebrile overnight, hemodynamically stable, he is sinus mechanism with a rate of 92. He is on breathing treatments. Today's labs have been reviewed showing trending white blood cell count to 33.8, hemoglobin of 11.4, is a d- dimer was quite elevated yesterday at 32.6, sodium is 140, potassium is 4.2, chloride is 104, CO2 34, B1 is 20, creatinine 0.67, his troponins trended down with peripheral and down to 0.057. She was negative for COVID-19, his urinalysis showed no clear sign of infection. Per his blood cultures are negative. On 11/15/2020 patient seen in follow-up on medical surgical floor. He is resting comfortably in bed, remains on 6 L of oxygen his pulse ox of 95%, he is afebrile, hemodynamically stable, he remains on IV Solu-Medrol, he remains on cefepime and vancomycin, he has been given IV Lasix yesterday with improvement i n his dyspnea. Chest x-ray shows bilateral pneumonia, with associated effusion, no significant change from previous chest x-ray, today's labs have been reviewed, sodium is 140, potassium is 3.6, chloride is 106, BUN is 26, creatinine 0.47. She had no fever or chills, no complaints of chest pain or hemoptysis. One of his blood cultures on 11/10/2020 was positive for alpha hemolytic streptococcus, follow blood cultures and sputum cultures have been negative On 11/17/2020 patient seen in follow-up on medical surgical floor. He is resting comfortably in bed, currently on 6 L of oxygen, his pulse ox is 98% and this can probably be weaned down further, he normally wears 4 L of oxygen at home on a regular basis, he is mildly short of breath, he still has chest congestion, and his lung sounds are positive for scattered rhonchi and wheezing, he appears to be generally swollen as well, his last chest x-ray was on 11/15/2020 showing bilateral pneumonia with associated oral effusions, on the background of emphysema. No new labs today, yesterday's labs have been reviewed, white blood cell count was 25.2, hemoglobin was 9.6, sodium is 139, potassium 3.6, chloride was 108, CO2 was 31, BUN was 27, creatinine was 0.41, AST was 102, ALT was 110, alkaline phosphatase was 186. Patient is on cefepime and vancomycin, he is on IV Solu-Medrol 60 mg every 6 hours, and he is on oral anticoagulation in the form of Xarelto. His blood culture from 11/10/2020 showed alphahemolytic streptococcus, nonhemolytic strep, follow blood cultures have been negative On 11/18/2020, patient seen in follow-up on medical surgical floor, he remains on 6 L of oxygen and his pulse ox is 97%, patient is afebrile, hemodynamically stable, remains on a combination of cefepime and vancomycin, yesterday we added a daily dose of Lasix, and patient is negative for 4.1 L net fluid balance over the last 24 hours. Today's labs have been reviewed, patient's white blood cell count is 29.2, hemoglobin is 9.5, sodium is 137, potassium is 3.6, chloride is 100, CO2 is 36, BUN is 24 creatinine 0.48. Pro-calcitonin level has improved and is down to 0.35 on yesterday's labs. No fever or chills, his FiO2 can probably further wean down. Looks weak overall, but states that his breathing is improved, occasionally brings up whitish colored phlegm. No hemoptysis, follow blood cultures have shown no growth, sputum culture was negative Significant clinical improvement, weaned down to 4 L nasal cannula. Denies chest pain, palpitations or increasing shortness of breath. Afebrile, follow-up blood cultures/sputum reported no growth. WBC 36.4. Patient will be discharged to subacute rehab today in a stable condition with guarded prognosis pending final DC recommendations/antibiotics/clearance from pulmonary. Microbiology 11/13/20 14:23 Blood Blood Culture - Preliminary No Growth after 120 hours 11/13/20 14:36 Blood Blood Culture - Preliminary No Growth after 120 hours 11/10/20 07:59 Blood Blood Culture - Final No Growth after 144 hours 11/10/20 07:43 Blood Blood Culture Gram Stain - Final 11/10/20 07:43 Blood Blood Culture - Final Alpha Hemolytic Streptococcus Non Hemolytic Strep 11/11/20 11:20 Sputum Gram Stain - Final 11/11/20 11:20 Sputum Sputum Culture - Final 11/10/20 07:43 Blood Blood Culture - Final The impression and plan of care has been dictated as directed. : I performed a history and examination of this patient, discussed the same with the dictator. I agree with the dictator's note ,documented as a scribe. Any additional findings or plans will be noted. Patient Condition at Discharge: Stable Plan - Discharge Summary Discharge Rx Participant: Yes New Discharge Prescriptions: New Petrolatum, White [Aquaphor] 1 applic TOPICAL DAILY PRN applic PRN Reason: Dry Skin predniSONE 10 mg PO DIRECTED #30 tab Tiotropium 2.5 Mcg/Puff [Spiriva Respimat 2.5 Mcg] 2 puff INHALATION RT-DAILY puff Diclofenac Sodium Gel [Voltaren Gel] 2 gm TOPICAL QID PRN tube PRN Reason: Pain/Discomfort Rivaroxaban [Xarelto] 15 mg PO BID-W/MEALS tab Furosemide [Lasix] 20 mg PO DAILY tab Acetaminophen Tab [Tylenol] 650 mg PO Q4HR PRN tab PRN Reason: Fever And/Or Mild Pain Albuterol Inhaler [Ventolin Hfa Inhaler] 2 puff INHALATION RT-QID puff Albuterol Inhaler [Ventolin Hfa Inhaler] 2 puff INHALATION Q4H PRN #1 inh PRN Reason: Shortness Of Breath Or Wheezing Continue Aspirin EC [Ecotrin Low Dose] 81 mg PO HS Omeprazole 20 mg PO BID Vitamin B Complex 1 cap PO DAILY L.acidoph,Paracasei, B.lactis [Probiotic] 1 cap PO DAILY atenoloL [Atenolol] 25 mg PO Q48H Multivit-Min/FA/Lycopen/Lutein [Centrum Silver Men Tablet] 1 tab PO DAILY predniSONE 20 mg PO DAILY #0 Fluticasone/Vilanterol [Breo Ellipta 200-25 Mcg INH] 1 puff INHALATION RT- DAILY Discontinued Tiotropium Br/Olodaterol HCl [Stiolto Respimat Inhal [place]] 2 puff INHALATION RT-DAILY Cyclobenzaprine [Flexeril] 10 mg PO TID PRN PRN Reason: Muscle Spasm Atorvastatin [Lipitor] 10 mg PO HS Hydrocodone/Acetaminophen [Jermyn 10-325] 1 tab PO Q6H PRN PRN Reason: Pain Discharge Medication List Aspirin EC [Ecotrin Low Dose] 81 mg PO HS 07/21/16 [History] Omeprazole 20 mg PO BID 06/13/19 [History] Vitamin B Complex 1 cap PO DAILY 06/13/19 [History] L.acidoph,Paracasei, B.lactis [Probiotic] 1 cap PO DAILY 07/17/20 [History] atenoloL [Atenolol] 25 mg PO Q48H 07/17/20 [History] Fluticasone/Vilanterol [Breo Ellipta 200-25 Mcg INH] 1 puff INHALATION RT-DAILY 11/10/20 [History] Multivit-Min/FA/Lycopen/Lutein [Centrum Silver Men Tablet] 1 tab PO DAILY 11/10/20 [History] Acetaminophen Tab [Tylenol] 650 mg PO Q4HR PRN tab 11/19/20 [Rx] Albuterol Inhaler [Ventolin Hfa Inhaler] 2 puff INHALATION Q4H PRN #1 inh 11/19/20 [Rx] Albuterol Inhaler [Ventolin Hfa Inhaler] 2 puff INHALATION RT-QID puff 11/19/20 [Rx] Diclofenac Sodium Gel [Voltaren Gel] 2 gm TOPICAL QID PRN tube 11/19/20 [Rx] Furosemide [Lasix] 20 mg PO DAILY tab 11/19/20 [Rx] Petrolatum, White [Aquaphor] 1 applic TOPICAL DAILY PRN applic 11/19/20 [Rx] Rivaroxaban [Xarelto] 15 mg PO BID-W/MEALS tab 11/19/20 [Rx] Tiotropium 2.5 Mcg/Puff [Spiriva Respimat 2.5 Mcg] 2 puff INHALATION RT-DAILY puff 11/19/20 [Rx] predniSONE 10 mg PO DIRECTED #30 tab 11/19/20 [Rx] predniSONE 20 mg PO DAILY #0 11/19/20 [Rx] Follow up Appointment(s)/Referral(s): Mir Blair DO [Doctor of Osteopathic Medicine] - 1 Week Linh Staples MD [STAFF PHYSICIAN] - 2 Weeks Brendan Chan MD [Primary Care Provider] - 3 Days Radha Teran MD [Family Provider] - 12/17/20 3:00 pm (With Kylie) [facility] Visiting Nurse, [NON-STAFF] - 1-2 Days Activity/Diet/Wound Care/Special Instructions: [facility] final DC recommendations/antibiotic recommendations, clearance from pulmonary pending. Speech therapy, base of tongue exercises Diet: Regular diet, thin liquids; sitting upright 90, double swallow, small bites and sips CBC,BMP in 3 days Discharge Disposition: TRANSFER TO SNF/ECF
--- NOTE | 2020-11-19 12:38 | P.PN ---
Subjective Progress Note Date: 11/19/20 This is 75-year-old gentleman with history of CAD, prior cardiac cath with stenting, advanced COPD/emphysema, pneumonia, skin cancer, thoracic aortic aneurysm, alcohol use and multiple other medical issues presented to the ER with complaints of worsening difficulty breathing, productive cough, chest pressure for approximately 10 days or longer. Patient reports he received both coronavirus vaccines, last one received 2 weeks ago. Denies fever or chills. Reports poor appetite. Denies nausea vomiting or diarrhea. Denies abdominal pain. Chest x-ray consistent with underlying COPD, extensive emphysema no pneumothorax, bilateral patchy airspace disease greater on the right, prominence of the pulmonary arteries consistent with underlying pulmonary artery hypertension, aortia dense and ectatic. CTA reported no evidence for acute PE, advanced emphysematous change with worsening masslike consolidation right lower lobe, small complex loculated posterior right pleural fluid collection, dissection beginning in the distal thoracic aorta just above the diaphragm extending along the course of the entire visualized portion of the abdominal aorta-type B [place] or DeBakey type III abdominal aortic dissection, 4 mm nonobstructing stone admitted to the lower pole right kidney. T-max 100.2, WBC 45.2. Hemoglobin 13.1, platelets 286 and MCV 98.8, d-dimer is 32.67, sodium 139, potassium 4.7, CO2 30, BUN 41, creatinine 1.12 ,glucose 42 on admission currently 127, lactic acid 2.8, calcium 8.3, magnesium 2 ferritin pending, total bili 0.7, AST 140 alk phos 217 ALT 48 LDH 1990, troponin 0.126, CRP 40.8, BNP 3130, ABGs noted. EKG reporting sinus tachycardia, PACs.Tested negative for coronavirus,Received vancomycin, cefepime and steroids in the ER. 11/11/2020 apparently patient wears 2-1/2 L at home and states that his had bumped his oxygen up to 4 prior to his admission. Significant weight loss reporting greater than 40 pounds in 6 months to the last year. 2 teeth broke off approximately 4 weeks ago, states he did not swallow them. Maintained on cefepime and vancomycin. Afebrile, WBC trending down, BUN 28, creatinine 0.67. Preliminary blood cultures reporting no growth at 24 hours. Hemoglobin 11.4, platelets 194. 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 Evaluated by speech therapy, scheduled for MBS, ruling out aspiration. Chest CT on admission suggestive of abdominal aortic dissection .Evaluated by vascular surgery, CTA with runoff ordered. CT angiogram of abdomen and aorta with runoff reported no evidence of abdominal aortic aneurysm or dissection, short focal dissection of left common iliac artery, 3 vessel runoff to bilateral feet. Troponin 0.126, 0.075, 0.057. 11/12/2020 transferred out of ICU yesterday to telemetry unit .Yesterday developed a brief episode of asymptomatic paroximal atrial fibrillation with RVR with heart rate up into the 160s and converted back to sinus rhythm. Maintained on beta anastacio. oxygen requirements mildly worsened requiring high flow 6 L nasal cannula maintaining O2 sats in the low 90s. Chest x-ray reporting similar to prior, underlying emphysema. Hemoglobin trending down down to 10.7, platelets 190. Stool for occult blood negative. Evaluated by GI with recommendations noted and appreciated including EGD and colonoscopy once respiratory status stabilizes. Maintained on antibiotics, nebulized bronchodilators and steroids. Blood sugars controlled. blood cultures and sputum culture finalizing. Afebrile, WBC trending down to 29.6. 11/13/2020 mild respiratory distress this morning, desatted into the 80s, fluids KVO'd, received a dose of Lasix IVP. Significant improvement, now maintaining O2 sats in the mid 90s. Declined MBS. Continues to have productive cough with blood-tinged sputum. Afebrile, WBC trending down 21.4. Hemoglobin 10.2, platelets 202. Diet intake 25%. BUN 23, creatinine 0.49. Blood sugars stable. LDH trending down, 1284, CRP trending down 13.9. Denies any chest pain, palpitations. Denies any nausea vomiting or diarrhea. Denies any abdominal pain 11/14/2020 no overnight events. Continues on 6 L high flow nasal cannula, maintaining O2 sats of 92-97%. Sputum cultures reported moderate normal respiratory gretel. Blood cultures reporting streptococcus species, finalizing. Continues on cefepime, vancomycin. BUN 25, creatinine 0.43. Diet intake increased yesterday ,Consumed 50% of lunch and dinner. Breakfast intake pending. Denies any chest pain, palpitations. Afebrile. 11/17/2020 maintained on vancomycin, cefepime. Creatinine pending. Anticoagulation converted to Xarelto. Continue on 6 L high flow nasal cannula maintaining O2 sats in the mid to high 90s. Afebrile. Blood and sputum cultures reporting no growth . WBC yesterday 25.2 .Consuming 100% of breakfast. Declining MBS. 11/18/2020 maintaining O2 sats of 97% on 6 L high flow nasal cannula. Continues on cefepime. afebrile, WBC 29.2.Sputum culture negative. Productive cough, white sputum. Repeat Blood cultures reporting no growth.Diuresing well on Lasix with 24-hour I&O reflecting a negative fluid balance. Hemoglobin 9.5, platelets 252. BUN 24, creatinine 0.48. Blood sugars controlled. Denies chest pain, palpitations. 11/19/2020 down to 4 L nasal cannula, maintaining O2 sats 91-96%. Continue on cefepime. afebrile, WBC 36.4. Hemoglobin 11.6, platelets 287. Maintained on oral Lasix, 24-hour I&O reflecting a negative fluid balance. renal function unchanged. Blood sugars controlled Objective - Vital Signs Vital signs: Vital Signs Temp 98.3 F 11/19/20 07:53 Pulse 57 L 11/19/20 07:53 Resp 19 11/19/20 07:53 BP 121/75 11/19/20 07:53 Pulse Ox 92 L 11/19/20 07:53 Intake & Output 11/18/20 11/19/20 11/19/20 18:59 06:59 18:59 Intake Total 1368 Output Total 1700 350 Balance -332 -350 Weight 63 kg Intake: Oral 1368 Output: Urine 1700 350 Other: Voiding Method External Catheter External Catheter External Catheter - Exam PHYSICAL EXAM: VITAL SIGNS: [As above] GENERAL: Alert and oriented 3, Sitting up in bed, NAD, hoarse HEENT: Conjunctivae normal. eyes normal. NECK: Supple, No JVD. CARDIOVASCULAR: S1, S2 regular. No murmur, gallops or rubs RESPIRATION: Less Congested. Breath sounds diminished in the bases witih bilateral crackles ABDOMEN: Soft, nontender . No guarding. no masses palpable. Bowel sounds he lluvia. LEGS: Positive edema. No clubbing, no cyanosis. NERVOUS SYSTEM: Cranial N 2-12 grossly normal. No focal deficits. Weak. Skin: Warm and dry, no rash - Labs CBC & Chem 7: 11/19/20 07:38 11/19/20 07:38 Labs: Abnormal Lab Results - Last 24 Hours (Table) 11/19/20 11/19/20 Range/Units 07:38 07:38 WBC 36.4 H (3.8-10.6) k/uL RBC 3.66 L (4.30-5.90) m/uL Hgb 11.6 L (13.0-17.5) gm/dL Hct 35.9 L (39.0-53.0) % Neutrophils # 35.0 H (1.3-7.7) k/uL Lymphocytes # 0.5 L (1.0-4.8) k/uL Sodium 135 L (137-145) mmol/L Carbon Dioxide 32 H (22-30) mmol/L BUN 27 H (9-20) mg/dL Creatinine 0.41 L (0.66-1.25) mg/dL Glucose 116 H (74-99) mg/dL Calcium 7.8 L (8.4-10.2) mg/dL Microbiology - Last 24 Hours (Table) 11/13/20 14:23 Blood Culture - Preliminary Blood No Growth after 120 hours 11/13/20 14:36 Blood Culture - Preliminary Blood No Growth after 120 hours Assessment and Plan Assessment: Acute on chronic hypoxic respiratory failure, secondary to right lower lobe pneumonia and small right-sided parapneumonic effusion. Reports he normally wears 2-1/2 L at home. Bacteremia, alphahemolytic streptococcus, non-hemolytic strep . Repeat blood cultures negative. Possible aspiration pneumonia, MBS reported mild impairment oral pharyngeal swallow, no evidence of penetration and/or aspiration. Regular diet, thin liquids recommended. Bilateral lower extremity acute DVTs No PE , reported per CT Elevated troponin, suspect related to hypoxia, acute coronary syndrome ruled out as per cardiology Paroxysmal atrial fibrillation, chronic Significant unintentional weight loss of 40 pounds in the last 6-12 months, reported. Follow-up with GI outpatient for potential diagnostic EGD and colonoscopy. 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 History of angina pectoris CAD with history of stenting Pulmonary hypertension Hyperlipidemia History of SVT Gastroesophageal reflux disease Alcohol use History of basal cell skin cancer Former nicotine dependence 4 mm right kidney nonobstructing stone per CTA Osteoporosis Moderate protein calorie malnutrition, BMI 19.9 Plan: Continue current medication regime , PPI, monitoring and symptomatic treatment. WBC remains elevated, continiues on IV antibiotics, nebulized bronchodilators, steroids. Subacute rehab at discharge pending pulmonary clearance/DC recommendations. Prognosis guarded given multiple complex medical issues. The impression and plan of care has been dictated as directed. : I performed a history and examination of this patient, discussed the same with the dictator. I agree with the dictator's note ,documented as a scribe. Any additional findings or plans will be noted.
--- NOTE | 2020-11-19 14:47 | P.PN ---
Subjective Progress Note Date: 11/19/20 Principal diagnosis: Pneumonia, right lung greater than left 75-year-old male, who presents to the emergency department, on November 10, in the morning, complaining of respiratory distress, cough, shortness of breath, and difficulty breathing. The patient is not a particularly good historian. Apparently the patient has been sick for at least 10 days and may be a bit longer. He admits to cough, chest congestion, and phlegm production. The patient has received full coronavirus vaccination. He apparently the patient has a history of both CAD, and COPD. There is no fever or chills. He denies chest pain or chest discomfort. His appetite has been poor. His chest x-ray s hows a substantial infiltrate in the right lower lobe, and on computed tomography scan, there was no pulmonary embolism, but there was pneumonia, and possibly a parapneumonic effusion. The patient's history includes CAD, pneumonia, COPD, angina, skin cancer, and thoracic aortic aneurysm, 4.2 cm in size. The patient is also had a cardiac catheterization with stent. Lab data includes a white count of 45.2, hemoglobin 13.1, hematocrit 39.5, platelet count 286,000. PT was 14, INR 1.4, PTT 24.6, and d-dimer was 32.67. Blood gases show a PaO2 of 122, pCO2 45, pH is 7.4. Sodium 139, potassium 4.7, chlorides 98, CO2 30, anion gap 11, BUN 41, creatinine 1.12, glucose 42, lactic acid 2.8, repeat 1.1, LDH 1990, C-reactive protein 40.8, troponin 0.126, and coronavirus testing, was negative. N-terminal proBNP was 3130. Chest x-ray and CAT scan of both reviewed. On 11/11/2020 patient seen in follow-up in the intensive care unit, he is awake and alert, he is moderately dyspneic with conversation, he is currently on 6 L of oxygen his pulse ox is 87-92%, is awake and alert, oriented 3, answering questions appropriately, he is pointing is infusing at a rate of 120 ML per hour, no other drips, he is on accommodation cefepime and vancomycin for bibasilar pneumonia right greater than left. He is tolerating oral intake, he sounds very congested on today's exam, not bringing up any sputum, today's chest x-ray showing bilateral airspace disease with some interval improvement. She was afebrile overnight, hemodynamically stable, he is sinus mechanism with a rate of 92. He is on breathing treatments. Today's labs have been reviewed showing trending white blood cell count to 33.8, hemoglobin of 11.4, is a d- dimer was quite elevated yesterday at 32.6, sodium is 140, potassium is 4.2, chloride is 104, CO2 34, B1 is 20, creatinine 0.67, his troponins trended down with peripheral and down to 0.057. She was negative for COVID-19, his urinalysis showed no clear sign of infection. Per his blood cultures are negative. On 11/15/2020 patient seen in follow-up on medical surgical floor. He is resting comfortably in bed, remains on 6 L of oxygen his pulse ox of 95%, he is afebrile, hemodynamically stable, he remains on IV Solu-Medrol, he remains on cefepime and vancomycin, he has been given IV Lasix yesterday with improvement in his dyspnea. Chest x-ray shows bilateral pneumonia, with associated effusion, no significant change from previous chest x-ray, today's labs have been reviewed, sodium is 140, potassium is 3.6, chloride is 106, BUN is 26, creatinine 0.47. She had no fever or chills, no complaints of chest pain or hemoptysis. One of his blood cultures on 11/10/2020 was positive for alpha hemolytic streptococcus, follow blood cultures and sputum cultures have been negative On 11/17/2020 patient seen in follow-up on medical surgical floor. He is resting comfortably in bed, currently on 6 L of oxygen, his pulse ox is 98% and this can probably be weaned down further, he normally wears 4 L of oxygen at home on a regular basis, he is mildly short of breath, he still has chest congestion, and his lung sounds are positive for scattered rhonchi and wheezing, he appears to be generally swollen as well, his last chest x-ray was on 11/15/2020 showing bilateral pneumonia with associated oral effusions, on the background of emphysema. No new labs today, yesterday's labs have been reviewed, white blood cell count was 25.2, hemoglobin was 9.6, sodium is 139, potassium 3.6, chloride was 108, CO2 was 31, BUN was 27, creatinine was 0.41, AST was 102, ALT was 110, alkaline phosphatase was 186. Patient is on cefepime and vancomycin, he is on IV Solu-Medrol 60 mg every 6 hours, and he is on oral anticoagulation in the form of Xarelto. His blood culture from 11/10/2020 showed alphahemolytic streptococcus, nonhemolytic strep, follow blood cultures have been negative On 11/18/2020, patient seen in follow-up on medical surgical floor, he remains on 6 L of oxygen and his pulse ox is 97%, patient is afebrile, hemodynamically stable, remains on a combination of cefepime and vancomycin, yesterday we added a daily dose of Lasix, and patient is negative for 4.1 L net fluid balance over the last 24 hours. Today's labs have been reviewed, patient's white blood cell count is 29.2, hemoglobin is 9.5, sodium is 137, potassium is 3.6, chloride is 100, CO2 is 36, BUN is 24 creatinine 0.48. Pro-calcitonin level has improved and is down to 0.35 on yesterday's labs. No fever or chills, his FiO2 can probably further wean down. Looks weak overall, but states that his breathing is improved, occasionally brings up whitish colored phlegm. No hemoptysis, follow blood cultures have shown no growth, sputum culture was negative On 11/19/2020 patient seen in follow-up on medical surgical floor. He is currently on 4 L of oxygen his pulse ox is 91-96%, he is breathing comfortable, less congested and wheezy, had no fevers overnight, blood pressure has been stab le. Denies any chest discomfort, no hemoptysis, on today's labs there is an increase in patient's white blood cell count up to 36.4, hemoglobin is 11.6, sodium is 135, potassium 3.8, CO2 is 32, BUN is 27, creatinine 0.41. Patient is currently on cefepime for antibiotic coverage, patient's of blood culture showed alphahemolytic streptococcus, follow-up blood cultures have been negative, sputum culture was negative. We'll send a repeat pro-calcitonin level, will continue monitoring the patient overnight, repeat chest x-ray today shows COPD with bilateral areas of infiltrates and pleural effusions that are stable in appearance. he remains on diuretics, and he is in -682 mL fluid balance over the last 24 hours Objective - Vital Signs Vital signs: Vital Signs Temp 98.3 F 11/19/20 07:53 Pulse 57 L 11/19/20 07:53 Resp 19 11/19/20 07:53 BP 121/75 11/19/20 07:53 Pulse Ox 92 L 11/19/20 07:53 Intake & Output 11/18/20 11/19/20 11/19/20 18:59 06:59 18:59 Intake Total 1368 200 Output Total 1700 350 Balance -332 -350 200 Weight 63 kg Intake: Oral 1368 200 Output: Urine 1700 350 Other: Voiding Method External Catheter External Catheter External Catheter - Exam GENERAL EXAM: Alert, very pleasant, 75-year-old white male, on 4 L of oxygen with pulse ox between 98%, mildly dyspneic with conversation, compared to yesterday's exam, patient is breathing more comfortably, less congested and wheezy on today's exam HEAD: Normocephalic/atraumatic. EYES: Normal reaction of pupils, equal size. Conjunctiva pink, sclera white. NOSE: Clear with pink turbinates. THROAT: No erythema or exudates. NECK: No masses, no JVD, no thyroid enlargement, no adenopathy. CHEST: No chest wall deformity. Symmetrical expansion. LUNGS: Equal air entry with bibasilar crackles, congested cough, CVS: Regular rate and rhythm, normal S1 and S2, no gallops, no murmurs, no rubs ABDOMEN: Soft, nontender. No hepatosplenomegaly, normal bowel sounds, no guarding or rigidity. EXTREMITIES: No clubbing, generally swollen no cyanosis, 2+ pulses and upper and lower extremities. MUSCULOSKELETAL: Muscle strength and tone normal. SPINE: No scoliosis or deformity SKIN: No rashes CENTRAL NERVOUS SYSTEM: Alert and oriented -3. No focal deficits, tone is normal in all 4 extremities. PSYCHIATRIC: Alert and oriented -3. Appropriate affect. Intact judgment and insight. - Labs CBC & Chem 7: 11/19/20 07:38 11/19/20 07:38 Labs: Abnormal Lab Results - Last 24 Hours (Table) 11/19/20 11/19/20 Range/Units 07:38 07:38 WBC 36.4 H (3.8-10.6) k/uL RBC 3.66 L (4.30-5.90) m/uL Hgb 11.6 L (13.0-17.5) gm/dL Hct 35.9 L (39.0-53.0) % Neutrophils # 35.0 H (1.3-7.7) k/uL Lymphocytes # 0.5 L (1.0-4.8) k/uL Sodium 135 L (137-145) mmol/L Carbon Dioxide 32 H (22-30) mmol/L BUN 27 H (9-20) mg/dL Creatinine 0.41 L (0.66-1.25) mg/dL Glucose 116 H (74-99) mg/dL Calcium 7.8 L (8.4-10.2) mg/dL Microbiology - Last 24 Hours (Table) 11/13/20 14:23 Blood Culture - Preliminary Blood No Growth after 120 hours 11/13/20 14:36 Blood Culture - Preliminary Blood No Growth after 120 hours Assessment and Plan Plan: Assessment: #1. Acute on chronic hypoxic respiratory failure secondary to right lower lobe pneumonia and a small right-sided parapneumonic effusion, rule out possibility of aspiration #2. History of stage IV COPD with recent FEV1 of 22% of predicted on home oxygen 2 L/m #3. Bilateral acute DVT is greater in the right lower extremity versus the left lower extremity, CTA chest showed no evidence of pulmonary embolism #4. Troponin leak #5. CAD with previous stenting #6. Hypertension #7. Hyperlipidemia #8. Thoracic aortic aneurysm . Patient follows with Dr. Ramos: #9. History of basal cell cancer with multiple lesions removed from his back and arms #10. Osteoporosis #11. Previous episodes of pneumonia Plan: Continue current antibiotics, patient is on cefepime, vancomycin has been discon tinued We'll send follow-up pro-calcitonin Follow-up chest x-ray tomorrow Continue cefepime We'll switch IV steroids to oral prednisone 40 mg daily Follow-up basic labs, weaning FiO2 to maintain O2 saturations at or above 90% Daily weights, follow-up chest x-ray Continue oral anticoagulation If he remains stable we'll consider discharge to ECF in the next 24 hours I performed a history & physical examination of the patient and discussed their management with my nurse practitioner, Cookie Mason. I reviewed the nurse practitioner's note and agree with the documented findings and plan of care. Lung sounds are positive for diffuse rhonchi. The findings and the impression was discussed with the patient. I attest to the documentation by the nurse practitioner. Time with Patient: Less than 30
[2020-11-20] MEDS: SODIUM CHLORIDE 0.9% 1,000 ML IV SCH ×2 (00:13→08:01)
[2020-11-20] MEDS: CEFEPIME 2 GM in SODIUM CHLORIDE 0.9% 100 ML IVPB SCH ×2 (00:26→08:01)
[2020-11-20 06:59] LABS: Glucose,Whole Blood 93 mg/dL (75-99)
--- NOTE | 2020-11-20 07:27 | P.PN ---
Subjective Progress Note Date: 11/20/20 Principal diagnosis: Worsening shortness of breath, cough 75-year-old male presented to the emergency room if worsening shortness of breath, cough. Patient history and also advanced COPD\emphysema, pneumonia, skin cancer, thoracic aortic aneurysm, prior cardiac cath with stenting, history of CAD, and numerous emergency room visits due to his advanced COPD. Understand patient is received both for vaccines. Chest x-ray showed underlying COPD, extensive emphysema no pneumothorax, bilateral patchy airspace disease greater on the right than left. CTA no evidence acute PE, advanced emphysema change with worsening masslike consolidation right lower lobe pleural fluid or cons olidation. Today patient is resting in bed on 6 L nasal cannula with no complaints at this time. He mentions that he feels like he is breathing better and he denies nausea, vomiting diarrhea, fever, pain. Vital signs are essentially stable at this time as is afebrile 98.3, pulse rate of 55, respi ratory rate of 18, blood pressure 125/73, is maintaining oxygen saturation of 94% on 6 L high flow. Most recent chemistry sodium 140, potassium 3.6, JAMILA of 26, creatinine 0.47. CBC results not present. 11/16/2020 patient resting comfortably in bed maintenance on 6 L high flow nasal cannula at this time. Patient states he feels that he is breathing easier today, but stills appears to be in mild distress. Vital signs stable with temperature of 97.9, pulse rate 60, respiratory rate of 18, blood pressure 137/76, maintaining oxygen saturations in the upper 90s 6 L high flow. Patient does complain of bilateral heel and toe pain. WBC 25.2, hemoglobin 9.6, hematocrit 30.2, platelet count of 271. Chemistry reveals sodium 139, potassium 3.6, JAMILA 27, creatinine of 0.41. Liver enzymes AST is 102, ELT is 110. Chemistries and x-ray bilateral groin, associated effusion and there is underlying emphysema. Patient remains on IV steroids, IV antibiotics in the form of cefepime and vancomycin, heparin drip regards to patient's bilateral DVTs and is on proton extra PPI. 11/20/2020 patient resting comfortably in bed at this time on 4 L nasal cannula maintaining oxygen saturations 95-98%, does not appear to be in distress at this time his breathing is less labored and congested. Vital signs of been stable as he has been afebrile with a temperature of 98.2 orally, pulse rate of 54, resp iratory rate of 18, blood pressure 147/77. He denies chest pain pressure, difficulty breathing, nausea vomiting or diarrhea. Awaiting this morning's lab work and more importantly the white blood cell count is a result of trend yesterday and chest x-ray to be cleared for possible discharge later today to [facility]. Patient to continue on oral steroids and antibiotics (cefepime), he is also on scheduled diuretics in the form of Lasix 20 mg daily, DVT and PPI prophylaxis will be continued with Protonix and Zaroxolyn, and breathing treatments. Objective - Vital Signs Vital signs: Vital Signs Temp 98.2 F 11/20/20 01:57 Pulse 54 L 11/20/20 01:57 Resp 18 11/20/20 01:57 BP 147/77 11/20/20 01:57 Pulse Ox 98 11/20/20 01:57 Intake & Output 11/19/20 11/20/20 11/20/20 18:59 06:59 18:59 Intake Total 800 Output Total 700 350 Balance 100 -350 Intake: Oral 800 Output: Urine 700 350 Other: Voiding Method External Catheter External Catheter # Bowel Movements 1 - Exam GENERAL: 75-year-old male patient of 4 L nasal cannula, appears to be more comfortable than previous visit, in no acute distress at this time. HEAD: Atraumatic, normocephalic. EYES: Pupils equal round and reactive to light, extraocular movements intact, sclera anicteric, conjunctiva are normal. ENT:nares patent, oropharynx clear without exudates. Moist mucous membranes. NECK: Normal range of motion, supple without lymphadenopathy or JVD, no thyromegaly LUNGS: Breath sounds clear and diminished with fine bibasilar crackles. No wheezes rales or rhonchi. HEART: Regular rate and rhythm without murmurs, rubs or gallops.S1S2 Normal ABDOMEN: Soft, nontender, normoactive bowel sounds. No guarding, no rebound. No masses appreciated. EXTREMITIES: Normal range of motion, no pitting or edema. +2 PT pulses, No clubbing or cyanosis. NEUROLOGICAL: Cranial nerves II through XII grossly intact. Normal speech, normal gait. PSYCH: Normal mood, normal affect. SKIN: Warm, Dry, normal turgor, no rashes or lesions noted. - Labs CBC & Chem 7: 11/19/20 07:38 11/19/20 07:38 Labs: Abnormal Lab Results - Last 24 Hours (Table) 11/19/20 11/19/20 11/19/20 Range/Units 07:38 07:38 07:38 WBC 36.4 H (3.8-10.6) k/uL RBC 3.66 L (4.30-5.90) m/uL Hgb 11.6 L (13.0-17.5) gm/dL Hct 35.9 L (39.0-53.0) % Neutrophils # 35.0 H (1.3-7.7) k/uL Lymphocytes # 0.5 L (1.0-4.8) k/uL Sodium 135 L (137-145) mmol/L Carbon Dioxide 32 H (22-30) mmol/L BUN 27 H (9-20) mg/dL Creatinine 0.41 L (0.66-1.25) mg/dL Glucose 116 H (74-99) mg/dL Calcium 7.8 L (8.4-10.2) mg/dL Procalcitonin 0.23 H (0.02-0.09) ng/mL Microbiology - Last 24 Hours (Table) 11/13/20 14:23 Blood Culture - Final Blood No Growth after 144 hours 11/13/20 14:36 Blood Culture - Final Blood No Growth after 144 hours Assessment and Plan (1) Sepsis due to pneumonia Current Visit: Yes Status: Acute Code(s): J18.9 - PNEUMONIA, UNSPECIFIED ORGANISM; A41.9 - SEPSIS, UNSPECIFIED ORGANISM SNOMED Code(s): 15353792 (2) Acute exacerbation of chronic obstructive airways disease Current Visit: No Status: Acute Code(s): J44.1 - CHRONIC OBSTRUCTIVE PULMONARY DISEASE W (ACUTE) EXACERBATION SNOMED Code(s): 847836170 (3) Community acquired pneumonia Current Visit: No Status: Acute Code(s): J18.9 - PNEUMONIA, UNSPECIFIED ORGANISM SNOMED Code(s): 720735082 (4) DVT, bilateral lower limbs Current Visit: Yes Status: Acute Code(s): I82.403 - ACUTE EMBOLISM AND THOMBOS UNSP DEEP VEINS OF LOW EXTRM, BI SNOMED Code(s): 738398633 (5) Hemoptysis Current Visit: Yes Status: Acute Code(s): R04.2 - HEMOPTYSIS SNOMED Code(s): 86168762 (6) Unintentional weight loss Current Visit: Yes Status: Acute Code(s): R63.4 - ABNORMAL WEIGHT LOSS SNOMED Code(s): 429223932 (7) Atrial fibrillation Current Visit: No Status: Acute Code(s): I48.91 - UNSPECIFIED ATRIAL FIBRILLATION SNOMED Code(s): 06071478 (8) Coronary artery disease Current Visit: No Status: Acute Code(s): I25.10 - ATHSCL HEART DISEASE OF [place] CORONARY ARTERY W/O ANG PCTRS SNOMED Code(s): 85668255 (9) SVT (supraventricular tachycardia) Current Visit: No Status: Acute Code(s): I47.1 - SUPRAVENTRICULAR TACHYCARDIA SNOMED Code(s): 0735789 Plan: 1. We'll wait for pending lab and chest x-ray results 2. Continue on IV antibiotics which is cefepime at this time 3. Continue with oral steroids 4. Protonix for PPI coverage 5. Oral anticoagulation 6. Titrate oxygen to maintain sats greater than 90% 7. Anticipate ECF discharge today or tomorrow depending on labs and chest x-ray results 8. We'll continue to follow closely Time with Patient: Greater than 30
[2020-11-20] MEDS: SYMBICORT 160-4.5 MCG INHALER INHALATION SCH (07:40)
[2020-11-20] MEDS: ALBUTEROL HFA INHALER INHALATION SCH ×2 (07:40→11:47)
[2020-11-20] MEDS: TIOTROPIUM 2.5 MCG INHALER INHALATION SCH (07:40)
[2020-11-20] MEDS: RIVAROXABAN 15 MG TAB PO SCH (08:00)
[2020-11-20] MEDS: FUROSEMIDE 20 MG TAB PO SCH (08:00)
[2020-11-20] MEDS: atenoloL 25 MG TAB PO SCH (08:00)
[2020-11-20] MEDS: PANTOPRAZOLE 40 MG TABLET PO SCH (08:01)
[2020-11-20 08:28] VITALS: RESP 16
[2020-11-20] MEDS ORDERED: predniSONE 20 MG TAB PO SCH (09:00)
--- NOTE | 2020-11-20 09:00 | XR ---
EXAMINATION TYPE: XR chest 1V portable DATE OF EXAM: 11/20/2020 COMPARISON: Chest x-ray 11/19/2020 HISTORY: Covid pneumonia TECHNIQUE: Single frontal view of the chest is obtained. FINDINGS: Prior chest x-ray appears mismarked. Bilateral airspace disease is present. Prominent lung volumes suggest underlying COPD, emphysema. Aorta is dense. Cardiac mediastinal silhouette is stable . There are overlying artifacts. No pneumothorax or pleural effusion. IMPRESSION: Correlate for pneumonia.
[2020-11-20 09:19] LABS: Basophils # (A) 0.04 X 10*3/uL (0.00-0.10); Basophils % (A) 0.1 %; Eosinophils # (A) 0.01 X 10*3/uL (0.04-0.35); Eosinophils % (A) 0 %; HCT 30.3 % (39.6-50.0); HGB 9.7 g/dL (13.0-17.0); Lymphocytes # (A) 0.94 X 10*3/uL (0.90-5.00); Lymphocytes % (A) 3.2 %; MCH 31.9 pg (27.0-32.0); MCV 99.7 fL (80.0-97.0); Mean Platelet Volume 11.6 fL (9.5-12.2); Monocytes # (A) 1.02 X 10*3/uL (0.20-1.00); Monocytes % (A) 3.4 %; Neutrophils # (A) 27.01 X 10*3/uL (1.80-7.70); Neutrophils % (A) 91.2 %; Platelet Count 239 X 10*3/uL (140-440); RBC 3.04 X 10*6/uL (4.40-5.60); RDW 13.1 % (11.5-14.5); WBC 29.63 X 10*3/uL (4.50-10.00)
[2020-11-20 11:00] LABS: African American GFR (CKD) 152.6 (60.0-200.0); BUN/Creat Ratio 86.67 Ratio (12.00-20.00); Calcium 7.4 mg/dL (8.7-10.3); Non-African American GFR(CKD) 131.7 (60.0-200.0); Potassium 3.5 mmol/L (3.5-5.5)
[2020-11-20 11:40] LABS: Glucose,Whole Blood 113 mg/dL (75-99)
--- NOTE | 2020-11-20 14:15 | P.PN ---
Subjective Progress Note Date: 11/20/20 Principal diagnosis: Pneumonia, right lung greater than left 75-year-old male, who presents to the emergency department, on November 10, in the morning, complaining of respiratory distress, cough, shortness of breath, and difficulty breathing. The patient is not a particularly good historian. Apparently the patient has been sick for at least 10 days and may be a bit longer. He admits to cough, chest congestion, and phlegm production. The patient has received full coronavirus vaccination. He apparently the patient has a history of both CAD, and COPD. There is no fever or chills. He denies chest pain or chest discomfort. His appetite has been poor. His chest x-ray s hows a substantial infiltrate in the right lower lobe, and on computed tomography scan, there was no pulmonary embolism, but there was pneumonia, and possibly a parapneumonic effusion. The patient's history includes CAD, pneumonia, COPD, angina, skin cancer, and thoracic aortic aneurysm, 4.2 cm in size. The patient is also had a cardiac catheterization with stent. Lab data includes a white count of 45.2, hemoglobin 13.1, hematocrit 39.5, platelet count 286,000. PT was 14, INR 1.4, PTT 24.6, and d-dimer was 32.67. Blood gases show a PaO2 of 122, pCO2 45, pH is 7.4. Sodium 139, potassium 4.7, chlorides 98, CO2 30, anion gap 11, BUN 41, creatinine 1.12, glucose 42, lactic acid 2.8, repeat 1.1, LDH 1990, C-reactive protein 40.8, troponin 0.126, and coronavirus testing, was negative. N-terminal proBNP was 3130. Chest x-ray and CAT scan of both reviewed. On 11/11/2020 patient seen in follow-up in the intensive care unit, he is awake and alert, he is moderately dyspneic with conversation, he is currently on 6 L of oxygen his pulse ox is 87-92%, is awake and alert, oriented 3, answering questions appropriately, he is pointing is infusing at a rate of 120 ML per hour, no other drips, he is on accommodation cefepime and vancomycin for bibasilar pneumonia right greater than left. He is tolerating oral intake, he sounds very congested on today's exam, not bringing up any sputum, today's chest x-ray showing bilateral airspace disease with some interval improvement. She was afebrile overnight, hemodynamically stable, he is sinus mechanism with a rate of 92. He is on breathing treatments. Today's labs have been reviewed showing trending white blood cell count to 33.8, hemoglobin of 11.4, is a d- dimer was quite elevated yesterday at 32.6, sodium is 140, potassium is 4.2, chloride is 104, CO2 34, B1 is 20, creatinine 0.67, his troponins trended down with peripheral and down to 0.057. She was negative for COVID-19, his urinalysis showed no clear sign of infection. Per his blood cultures are negative. On 11/15/2020 patient seen in follow-up on medical surgical floor. He is resting comfortably in bed, remains on 6 L of oxygen his pulse ox of 95%, he is afebrile, hemodynamically stable, he remains on IV Solu-Medrol, he remains on cefepime and vancomycin, he has been given IV Lasix yesterday with improvement in his dyspnea. Chest x-ray shows bilateral pneumonia, with associated effusion, no significant change from previous chest x-ray, today's labs have been reviewed, sodium is 140, potassium is 3.6, chloride is 106, BUN is 26, creatinine 0.47. She had no fever or chills, no complaints of chest pain or hemoptysis. One of his blood cultures on 11/10/2020 was positive for alpha hemolytic streptococcus, follow blood cultures and sputum cultures have been negative On 11/17/2020 patient seen in follow-up on medical surgical floor. He is resting comfortably in bed, currently on 6 L of oxygen, his pulse ox is 98% and this can probably be weaned down further, he normally wears 4 L of oxygen at home on a regular basis, he is mildly short of breath, he still has chest congestion, and his lung sounds are positive for scattered rhonchi and wheezing, he appears to be generally swollen as well, his last chest x-ray was on 11/15/2020 showing bilateral pneumonia with associated oral effusions, on the background of emphysema. No new labs today, yesterday's labs have been reviewed, white blood cell count was 25.2, hemoglobin was 9.6, sodium is 139, potassium 3.6, chloride was 108, CO2 was 31, BUN was 27, creatinine was 0.41, AST was 102, ALT was 110, alkaline phosphatase was 186. Patient is on cefepime and vancomycin, he is on IV Solu-Medrol 60 mg every 6 hours, and he is on oral anticoagulation in the form of Xarelto. His blood culture from 11/10/2020 showed alphahemolytic streptococcus, nonhemolytic strep, follow blood cultures have been negative On 11/18/2020, patient seen in follow-up on medical surgical floor, he remains on 6 L of oxygen and his pulse ox is 97%, patient is afebrile, hemodynamically stable, remains on a combination of cefepime and vancomycin, yesterday we added a daily dose of Lasix, and patient is negative for 4.1 L net fluid balance over the last 24 hours. Today's labs have been reviewed, patient's white blood cell count is 29.2, hemoglobin is 9.5, sodium is 137, potassium is 3.6, chloride is 100, CO2 is 36, BUN is 24 creatinine 0.48. Pro-calcitonin level has improved and is down to 0.35 on yesterday's labs. No fever or chills, his FiO2 can probably further wean down. Looks weak overall, but states that his breathing is improved, occasionally brings up whitish colored phlegm. No hemoptysis, follow blood cultures have shown no growth, sputum culture was negative On 11/19/2020 patient seen in follow-up on medical surgical floor. He is currently on 4 L of oxygen his pulse ox is 91-96%, he is breathing comfortable, less congested and wheezy, had no fevers overnight, blood pressure has been stab le. Denies any chest discomfort, no hemoptysis, on today's labs there is an increase in patient's white blood cell count up to 36.4, hemoglobin is 11.6, sodium is 135, potassium 3.8, CO2 is 32, BUN is 27, creatinine 0.41. Patient is currently on cefepime for antibiotic coverage, patient's of blood culture showed alphahemolytic streptococcus, follow-up blood cultures have been negative, sputum culture was negative. We'll send a repeat pro-calcitonin level, will continue monitoring the patient overnight, repeat chest x-ray today shows COPD with bilateral areas of infiltrates and pleural effusions that are stable in appearance. he remains on diuretics, and he is in -682 mL fluid balance over the last 24 hours On 11/20/2020 patient seen in follow-up on medical surgical floor, he is awake and alert, is currently on 4 L of oxygen, pulse ox is 92-98%, he is breathing easier, feeling better, he is been treated with antibiotics, steroids breathing treatments and diuretics, his a generalized edema has improved, we cut back his Lasix to 20 mg daily, and he is maintaining negative fluid balance. IV steroids have been transitioned to oral prednisone, today's labs have been reviewed, his white blood cell count is improving, down to 29.6, hemoglobin is 9.7, electrolytes with the exception of CO2 which is at 35 are within normal limits, BUN is 26, creatinine 0.3, follow-up pro-calcitonin continues to improve and is currently at 0.23, today's chest x-ray was a bilateral airspace disease, relatively stable, clinically patient is improving, he could be considered for discharge to ECF today Objective - Vital Signs Vital signs: Vital Signs Temp 98.1 F 11/20/20 08:00 Pulse 56 L 11/20/20 08:00 Resp 16 11/20/20 08:00 BP 106/72 11/20/20 08:00 Pulse Ox 92 L 11/20/20 08:00 Intake & Output 11/19/20 11/20/20 11/20/20 18:59 06:59 18:59 Intake Total 800 236 Output Total 700 350 Balance 100 -350 236 Intake: Oral 800 236 Output: Urine 700 350 Other: Voiding Method External Catheter External Catheter External Catheter # Bowel Movements 1 - Exam GENERAL EXAM: Alert, very pleasant, 75-year-old white male, on 4 L of oxygen with pulse ox between 98%, mildly dyspneic with conversation, compared to yesterday's exam, patient is breathing more comfortably, less congested and wheezy on today's exam HEAD: Normocephalic/atraumatic. EYES: Normal reaction of pupils, equal size. Conjunctiva pink, sclera white. NOSE: Clear with pink turbinates. THROAT: No erythema or exudates. NECK: No masses, no JVD, no thyroid enlargement, no adenopathy. CHEST: No chest wall deformity. Symmetrical expansion. LUNGS: Equal air entry with bibasilar crackles, congested cough, CVS: Regular rate and rhythm, normal S1 and S2, no gallops, no murmurs, no rubs ABDOMEN: Soft, nontender. No hepatosplenomegaly, normal bowel sounds, no guar ding or rigidity. EXTREMITIES: No clubbing, generally swollen no cyanosis, 2+ pulses and upper and lower extremities. MUSCULOSKELETAL: Muscle strength and tone normal. SPINE: No scoliosis or deformity SKIN: No rashes CENTRAL NERVOUS SYSTEM: Alert and oriented -3. No focal deficits, tone is normal in all 4 extremities. PSYCHIATRIC: Alert and oriented -3. Appropriate affect. Intact judgment and insight. - Labs CBC & Chem 7: 11/20/20 05:36 11/20/20 05:36 Labs: Abnormal Lab Results - Last 24 Hours (Table) 11/19/20 11/20/20 11/20/20 Range/Units 07:38 05:36 05:36 WBC 29.63 H (4.50-10.00) X 10*3/uL RBC 3.04 L (4.40-5.60) X 10*6/uL Hgb 9.7 L (13.0-17.0) g/dL Hct 30.3 L (39.6-50.0) % MCV 99.7 H (80.0-97.0) fL Immature Gran # 0.61 H (0.00-0.04) X 10*3/uL Neutrophils # 27.01 H (1.80-7.70) X 10*3/uL Monocytes # 1.02 H (0.20-1.00) X 10*3/uL Eosinophils # 0.01 L (0.04-0.35) X 10*3/uL Carbon Dioxide 35.0 H (21.6-31.8) mmol/L Creatinine 0.3 L (0.6-1.5) mg/dL BUN/Creatinine Ratio 86.67 H (12.00-20.00) Ratio POC Glucose (mg/dL) (75-99) mg/dL Calcium 7.4 L (8.7-10.3) mg/dL Procalcitonin 0.23 H (0.02-0.09) ng/mL 04/29/21 Range/Units 11:39 WBC (4.50-10.00) X 10*3/uL RBC (4.40-5.60) X 10*6/uL Hgb (13.0-17.0) g/dL Hct (39.6-50.0) % MCV (80.0-97.0) fL Immature Gran # (0.00-0.04) X 10*3/uL Neutrophils # (1.80-7.70) X 10*3/uL Monocytes # (0.20-1.00) X 10*3/uL Eosinophils # (0.04-0.35) X 10*3/uL Carbon Dioxide (21.6-31.8) mmol/L Creatinine (0.6-1.5) mg/dL BUN/Creatinine Ratio (12.00-20.00) Ratio POC Glucose (mg/dL) 113 H (75-99) mg/dL Calcium (8.7-10.3) mg/dL Procalcitonin (0.02-0.09) ng/mL Microbiology - Last 24 Hours (Table) 11/13/20 14:23 Blood Culture - Final Blood No Growth after 144 hours 11/13/20 14:36 Blood Culture - Final Blood No Growth after 144 hours Assessment and Plan Plan: Assessment: #1. Acute on chronic hypoxic respiratory failure secondary to right lower lobe pneumonia and a small right-sided parapneumonic effusion, rule out possibility of aspiration #2. History of stage IV COPD with recent FEV1 of 22% of predicted on home oxygen 2 L/m #3. Bilateral acute DVT is greater in the right lower extremity versus the left lower extremity, CTA chest showed no evidence of pulmonary embolism #4. Troponin leak #5. CAD with previous stenting #6. Hypertension #7. Hyperlipidemia #8. Thoracic aortic aneurysm . Patient follows with Dr. Ramos: #9. History of basal cell cancer with multiple lesions removed from his back and arms #10. Osteoporosis #11. Previous episodes of pneumonia Plan: Patient continues to improve, breathing easier Today's chest x-ray has been reviewed showing stable findings of bilateral airspace disease Follow pro-calcitonin is within normal limits Patient completed 9 days of cefepime Follow blood cultures have shown no growth Fever or chills Has been transitioned to oral prednisone and oral diuretics From pulmonary perspective he stable for discharge to ECF today No antibiotics, complete prednisone taper I performed a history & physical examination of the patient and discussed their management with my nurse practitioner, Cookie Mason. I reviewed the nurse samina chow's note and agree with the documented findings and plan of care. Lung sounds are positive for diffuse rhonchi. The findings and the impression was discussed with the patient. I attest to the documentation by the nurse practitioner. Time with Patient: Less than 30
[2020-11-20] MEDS: ACETAMINOPHEN TAB 325 MG TAB PO PRN (14:19)
[2020-11-20 15:24] VITALS: BP 102/62; PULSE 63; TEMP 98
== END 2020-11-20 15:26 | DRG 871 ==
LOC: EC 07:34 → 2SICU 11:28 → 3SCARD 11-11 17:01 → 4SSUR 11-14 23:03
PROVIDERS: ADMIT Family Medicine; ATTEND Family Medicine
PROC: 5A0955A Assistance with Respiratory Ventilation, Greater than 96 Consecutive Hours, High Flow/Velocity Cannula (ICD-10-PCS; principal; 2020-11-11)
DX: A40.9 Streptococcal sepsis, unspecified (principal); J96.21 Acute and chronic respiratory failure with hypoxia; J15.4 Pneumonia due to other streptococci; I71.01 Dissection of thoracic aorta; I71.02 Dissection of abdominal aorta; J96.22 Acute and chronic respiratory failure with hypercapnia; J91.8 Pleural effusion in other conditions classified elsewhere; I82.431 Acute embolism and thrombosis of right popliteal vein; R04.2 Hemoptysis; E44.0 Moderate protein-calorie malnutrition; Z68.1 Body mass index [BMI] 19.9 or less, adult; I47.1 Supraventricular tachycardia; J44.0 Chronic obstructive pulmonary disease with (acute) lower respiratory infection; J44.1 Chronic obstructive pulmonary disease with (acute) exacerbation; I82.403 Acute embolism and thrombosis of unspecified deep veins of lower extremity, bilateral; I82.432 Acute embolism and thrombosis of left popliteal vein; J43.9 Emphysema, unspecified; I25.10 Atherosclerotic heart disease of native coronary artery without angina pectoris; I27.20 Pulmonary hypertension, unspecified; I73.9 Peripheral vascular disease, unspecified; I48.0 Paroxysmal atrial fibrillation; Z20.822 Contact with and (suspected) exposure to COVID-19; R13.10 Dysphagia, unspecified; R49.0 Dysphonia; R63.4 Abnormal weight loss; R62.7 Adult failure to thrive; I10 Essential (primary) hypertension; E78.5 Hyperlipidemia, unspecified; K21.9 Gastro-esophageal reflux disease without esophagitis; N20.0 Calculus of kidney; M81.0 Age-related osteoporosis without current pathological fracture; M19.90 Unspecified osteoarthritis, unspecified site; Z99.81 Dependence on supplemental oxygen; Z95.5 Presence of coronary angioplasty implant and graft; Z98.890 Other specified postprocedural states; Z79.899 Other long term (current) drug therapy; Z79.82 Long term (current) use of aspirin; Z79.52 Long term (current) use of systemic steroids; Z87.01 Personal history of pneumonia (recurrent); Z85.828 Personal history of other malignant neoplasm of skin; Z87.891 Personal history of nicotine dependence; Z80.43 Family history of malignant neoplasm of testis; Z80.8 Family history of malignant neoplasm of other organs or systems; Z79.01 Long term (current) use of anticoagulants
CPT/HCPCS: 36415; 36600; 71045; 71275; 74230; 75635; 80048; 80053; 80202; 81003; 82103; 82272; 82565; 82728; 82805; 83605; 83615; 83735; 83880; 84145; 84484; 85025; 85379; 85610; 85730; 86140; 87040; 87070; 87205; 87635; 93005; 93306; 93970; 94640; 94760; 96361; 96365; 96367; 96375; 99291

== ENCOUNTER 2020-11-27 11:46 | Inpatient (IN) | payer MEDICARE ==
[2020-11-27] MEDS ORDERED: ALBUTEROL HFA INHALER INHALATION STA (12:24)
[2020-11-27] MEDS ORDERED: ALBUTEROL HFA INHALER INHALATION PRN (12:24)
--- NOTE | 2020-11-27 12:28 | ED ---
General Adult HPI - General Chief complaint: Shortness of Breath Stated complaint: SOB Time Seen by Provider: 11/27/20 12:15 Source: patient, EMS, RN notes reviewed Mode of arrival: EMS Limitations: no limitations - History of Present Illness Initial comments: Patient is a pleasant 75-year-old male presenting to the emergency department with difficulty breathing. Patient was discharged from the hospital over a week ago with right lower lobe pneumonia. Patient complains of cough. Patient does feel fatigued. No chest pain. No isolated area of weakness. Patient does have history of COPD with similar type symptoms. Patient denies fever. Patient denies any recent covid19 infection - Related Data Home Medications Medication Instructions Recorded Confirmed Aspirin EC [Ecotrin Low Dose] 81 mg PO HS 07/21/16 11/27/20 Omeprazole 20 mg PO BID@0800,1700 06/13/19 11/27/20 Vitamin B Complex 1 cap PO DAILY 06/13/19 11/27/20 atenoloL [Atenolol] 25 mg PO Q48H 07/17/20 11/27/20 Fluticasone/Vilanterol [Breo 1 puff INHALATION RT-DAILY@1700 11/10/20 11/27/20 Ellipta 200-25 Mcg INH] Albuterol Inhaler [Ventolin Hfa 2 puff INHALATION RT-Q4H PRN 11/27/20 11/27/20 Inhaler] Furosemide [Lasix] 20 mg PO DAILY@0800 11/27/20 11/27/20 Lactobacillus Acidophilus 1 tab PO HS 11/27/20 11/27/20 [Acidophilus] Lactose-Reduced Food [Ensure Plus] 240 ml PO BID 11/27/20 11/27/20 Multivits,Th W-Ca,Fe,Oth Min 1 tab PO DAILY 11/27/20 11/27/20 [Therapeutic M] Previous Rx's Medication Instructions Recorded Acetaminophen Tab [Tylenol] 650 mg PO Q4HR PRN tab 11/19/20 Albuterol Inhaler [Ventolin Hfa 2 puff INHALATION RT-QID puff 11/19/20 Inhaler] Diclofenac Sodium Gel [Voltaren 2 gm TOPICAL QID PRN tube 11/19/20 Gel] Petrolatum, White [Aquaphor] 1 applic TOPICAL DAILY PRN applic 11/19/20 Rivaroxaban [Xarelto] 15 mg PO BID-W/MEALS tab 11/19/20 Tiotropium 2.5 Mcg/Puff [Spiriva 2 puff INHALATION RT-DAILY puff 11/19/20 Respimat 2.5 Mcg] predniSONE 20 mg PO DAILY #0 11/19/20 Allergies Allergy/AdvReac Type Severity Reaction Status Date / Time No Known Allergies Allergy Verified 11/27/20 13:16 Review of Systems ROS Statement: Those systems with pertinent positive or pertinent negative responses have been documented in the HPI. ROS Other: All systems not noted in ROS Statement are negative. Constitutional: Denies: fever, chills Eyes: Denies: eye pain ENT: Denies: ear pain Respiratory: Reports: cough, dyspnea Cardiovascular: Denies: chest pain Endocrine: Reports: fatigue Gastrointestinal: Denies: abdominal pain Genitourinary: Denies: dysuria Musculoskeletal: Denies: back pain Skin: Denies: rash Neurological: Denies: weakness 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, PT STATED HE HAS ENLARGED AORTA(PER CT SCAN -THORACIC AORTIC ANEURYSM 4.2 CM), "HOARSNESS", History of Any Multi-Drug Resistant Organisms: None Reported Past Surgical History: Adenoidectomy, Appendectomy, Heart Catheterization With Stent, Hernia Repair, Orthopedic Surgery, Tonsillectomy Additional Past Surgical History / Comment(s): LET ROTATOR CUFF REPAIR,ANAL FISTULA REPAIR, EGD/COLONOSCOPY,MULTIPLE BASAL CELL 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,AGUILAR INGUINAL HERNIA REPAIR.RIGHT SHOULDER SURGERY X2 Past Anesthesia/Blood Transfusion Reactions: No Reported Reaction Date of Last Stent Placement:: 2005 Past Psychological History: No Psychological Hx Reported Past Alcohol Use History: Occasional Past Drug Use History: None Reported - Past Family History Father Family Medical History: Cancer Additional Family Medical History / Comment(s): TESTICULAR, BONE Mother Family Medical History: Cancer Additional Family Medical History / Comment(s): BONE General Exam Limitations: no limitations General appearance: alert, in no apparent distress Head exam: Present: normocephalic Eye exam: Present: normal appearance Neck exam: Present: normal inspection Respiratory exam: Present: rales (Right lower lobe) Cardiovascular Exam: Present: regular rate, normal rhythm GI/Abdominal exam: Present: soft. Absent: tenderness Extremities exam: Present: normal inspection. Absent: pedal edema, calf tenderness Neurological exam: Present: alert Psychiatric exam: Present: normal affect, normal mood Skin exam: Present: normal color Course Vital Signs 11/27/20 11/27/20 11/27/20 11:48 11:57 12:33 Temperature 99.1 F Pulse Rate 79 72 Respiratory 26 H 24 24 Rate Blood Pressure 108/71 88/67 O2 Sat by Pulse 87 L 100 Oximetry - Reevaluation(s) Reevaluation #1: 11/27/20 13:57 Patient does have concern for sepsis diagnosed at 1350. Blood culture and lactic acid and IV antibiotics ordered. 2 L of fluid bolus ordered which is greater than 30 mL/kg. EKG Findings - EKG Comments: EKG Findings:: Normal sinus rhythm with a rate of 80. AR 172. QRS 68. QT 394. QTC 44. Left axis. No acute ST change.RsR vq Medical Decision Making - Medical Decision Making Patient reevaluated and updated. Case discussed with Dr. Pak who will admit his patient. He did come evaluate him in the emergency department. Dr. Teran has been paged. - Lab Data Result diagrams: 11/27/20 12:32 11/27/20 12:32 Lab Results 11/27/20 11/27/20 11/27/20 Range/Units 12:32 12:32 12:32 WBC 24.1 H (3.8-10.6) k/uL RBC 3.15 L (4.30-5.90) m/uL Hgb 10.1 L (13.0-17.5) gm/dL Hct 31.1 L (39.0-53.0) % MCV 98.7 (80.0-100.0) fL MCH 32.0 (25.0-35.0) pg MCHC 32.4 (31.0-37.0) g/dL RDW 15.1 (11.5-15.5) % Plt Count 206 (150-450) k/uL MPV 8.8 Neutrophils % 94 % Lymphocytes % 1 % Monocytes % 2 % Eosinophils % 2 % Basophils % 1 % Neutrophils # 22.7 H (1.3-7.7) k/uL Lymphocytes # 0.3 L (1.0-4.8) k/uL Monocytes # 0.4 (0-1.0) k/uL Eosinophils # 0.4 (0-0.7) k/uL Basophils # 0.2 (0-0.2) k/uL Macrocytosis Slight PT 15.5 H (9.0-12.0) sec INR 1.5 H (<1.2) APTT 27.3 (22.0-30.0) sec Sodium 133 L (137-145) mmol/L Potassium 4.2 (3.5-5.1) mmol/L Chloride 97 L (98-107) mmol/L Carbon Dioxide 33 H (22-30) mmol/L Anion Gap 3 mmol/L BUN 25 H (9-20) mg/dL Creatinine 0.40 L (0.66-1.25) mg/dL Est GFR (CKD-EPI)AfAm >90 (>60 ml/min/1.73 sqM) Est GFR (CKD-EPI)NonAf >90 (>60 ml/min/1.73 sqM) Glucose 80 (74-99) mg/dL Plasma Lactic Acid Rich (0.7-2.0) mmol/L Calcium 8.4 (8.4-10.2) mg/dL Magnesium 1.8 (1.6-2.3) mg/dL Total Bilirubin 0.8 (0.2-1.3) mg/dL AST 43 (17-59) U/L ALT 44 (4-49) U/L Alkaline Phosphatase 144 H (38-126) U/L Lactate Dehydrogenase 1318 H (313-618) U/L C-Reactive Protein 13.9 H (<1.0) mg/dL NT-Pro-B Natriuret Pep pg/mL Total Protein 5.6 L (6.3-8.2) g/dL Albumin 2.8 L (3.5-5.0) g/dL Coronavirus (PCR) (Not Detectd) 11/27/20 11/27/20 11/27/20 Range/Units 12:32 12:32 12:32 WBC (3.8-10.6) k/uL RBC (4.30-5.90) m/uL Hgb (13.0-17.5) gm/dL Hct (39.0-53.0) % MCV (80.0-100.0) fL MCH (25.0-35.0) pg MCHC (31.0-37.0) g/dL RDW (11.5-15.5) % Plt Count (150-450) k/uL MPV Neutrophils % % Lymphocytes % % Monocytes % % Eosinophils % % Basophils % % Neutrophils # (1.3-7.7) k/uL Lymphocytes # (1.0-4.8) k/uL Monocytes # (0-1.0) k/uL Eosinophils # (0-0.7) k/uL Basophils # (0-0.2) k/uL Macrocytosis PT (9.0-12.0) sec INR (<1.2) APTT (22.0-30.0) sec Sodium (137-145) mmol/L Potassium (3.5-5.1) mmol/L Chloride (98-107) mmol/L Carbon Dioxide (22-30) mmol/L Anion Gap mmol/L BUN (9-20) mg/dL Creatinine (0.66-1.25) mg/dL Est GFR (CKD-EPI)AfAm (>60 ml/min/1.73 sqM) Est GFR (CKD-EPI)NonAf (>60 ml/min/1.73 sqM) Glucose (74-99) mg/dL Plasma Lactic Acid Rich 2.6 H* (0.7-2.0) mmol/L Calcium (8.4-10.2) mg/dL Magnesium (1.6-2.3) mg/dL Total Bilirubin (0.2-1.3) mg/dL AST (17-59) U/L ALT (4-49) U/L Alkaline Phosphatase (38-126) U/L Lactate Dehydrogenase (313-618) U/L C-Reactive Protein (<1.0) mg/dL NT-Pro-B Natriuret Pep 737 pg/mL Total Protein (6.3-8.2) g/dL Albumin (3.5-5.0) g/dL Coronavirus (PCR) Not Detected (Not Detectd) Critical Care Time Critical Care Time: Yes Total Critical Care Time: 33 Disposition Clinical Impression: Sepsis due to pneumonia, Pneumonia Disposition: ADMITTED IP TO THIS HOSP Condition: Serious Is patient prescribed a controlled substance at d/c from ED?: No Referrals: Brendan Chan MD [Primary Care Provider] - 1-2 days Decision Time: 13:58
[2020-11-27 12:59] LABS: Basophils # (A) 0.2 k/uL (0-0.2); Basophils % (A) 1 %; Eosinophils # (A) 0.4 k/uL (0-0.7); Eosinophils % (A) 2 %; HCT 31.1 % (39.0-53.0); HGB 10.1 gm/dL (13.0-17.5); Lymphocytes # (A) 0.3 k/uL (1.0-4.8); Lymphocytes % (A) 1 %; MCHC 32.4 g/dL (31.0-37.0); MCV 98.7 fL (80.0-100.0); Macrocytosis Slight; Mean Platelet Volume 8.8; Monocytes # (A) 0.4 k/uL (0-1.0); Monocytes % (A) 2 %; Neutrophils # (A) 22.7 k/uL (1.3-7.7); Neutrophils % (A) 94 %; Platelet Count 206 k/uL (150-450); RBC 3.15 m/uL (4.30-5.90); RDW 15.1 % (11.5-15.5); WBC 24.1 k/uL (3.8-10.6)
[2020-11-27 13:09] LABS: INR 1.5 (<1.2)
[2020-11-27 13:10] LABS: Partial Thromboplastin Time 27.3 sec (22.0-30.0); Prothrombin Time 15.5 sec (9.0-12.0)
--- NOTE | 2020-11-27 13:10 | XR ---
EXAMINATION TYPE: XR chest 1V portable DATE OF EXAM: 11/27/2020 COMPARISON: Chest x-ray November 20, 2020 HISTORY: Shortness of breath TECHNIQUE: Single AP portable frontal upright view of the chest is obtained. FINDINGS: There is background chronic emphysematous and pulmonary fibrotic changes with increasing r ight basilar opacity. The cardiac silhouette size remains within normal limits with atherosclerotic and ectatic aortic knob. The osseous structures remain demineralized. Chronic compression type frac tures redemonstrated. Right-sided volume loss redemonstrated. IMPRESSION: Possible acute infiltrate right lower lung on background chronic changes.
[2020-11-27 13:12] LABS: ALT 44 U/L (4-49); AST 43 U/L (17-59); African American GFR (CKD) >90 (>60 ml/min/1.73 sqM); Albumin 2.8 g/dL (3.5-5.0); Alkaline Phosphatase 144 U/L (38-126); Anion Gap 3 mmol/L; Blood Urea Nitrogen 25 mg/dL (9-20); Calcium 8.4 mg/dL (8.4-10.2); Carbon Dioxide 33 mmol/L (22-30); Chloride 97 mmol/L (98-107); Glucose 80 mg/dL (74-99); LDH 1318 U/L (313-618); Magnesium 1.8 mg/dL (1.6-2.3); Non-African American GFR(CKD) >90 (>60 ml/min/1.73 sqM); Potassium 4.2 mmol/L (3.5-5.1); Sodium 133 mmol/L (137-145); Total Bilirubin 0.8 mg/dL (0.2-1.3); Total Protein 5.6 g/dL (6.3-8.2)
[2020-11-27 13:24] LABS: C Reactive Protein 13.9 mg/dL (<1.0)
[2020-11-27] MEDS ORDERED: SODIUM CHLORIDE 0.9% 1,000 ML IV STA ×2 (13:56)
[2020-11-27] MEDS ORDERED: AZITHROMYCIN 500 MG in SODIUM CHLORIDE 0.9% 250 ML IVPB STA (14:02)
[2020-11-27] MEDS ORDERED: ALBUTEROL NEBULIZED 2.5 MG/3 ML INHALATION PRN (14:02)
[2020-11-27] MEDS ORDERED: PNEUMONIA PROTOCOL UTILIZED 1 EACH MISC PO PRN (14:02)
[2020-11-27] MEDS ORDERED: PIPERACILLIN-TAZOBACTAM 3.375 GM in SODIUM CHLORIDE 0.9% 100 ML IVPB STA (14:02)
[2020-11-27] MEDS: SODIUM CHLORIDE 0.9% 1,000 ML IV SCH ×2 (14:07→20:35)
[2020-11-27] MEDS ORDERED: DICLOFENAC SODIUM GEL 100 GM TUBE TOPICAL PRN (15:14)
--- NOTE | 2020-11-27 15:19 | P.HPIM ---
History of Present Illness H&P Date: 11/27/20 Chief Complaint: Worsening shortness of breath This is a 75-year-old gentleman recently discharged on 11/19/20 with acute on chronic hypoxic respiratory failure, right lower lobe pneumonia with small right-sided parapneumonic effusion with alpha hemolytic streptococcus, non-he molytic strep bacteremia, presented to the ER with worsening shortness of breath, cough, fatigue. Denies chest pain, palpitations. Denies lightheadedness, dizziness or focal deficits. Denies fever or chills. COVID-19 detected. Chest x-ray reported possible acute infiltrate right lower lung. He reporting normal sinus rhythm sinus arrhythmia, left anterior fascicular block. Temperature 99.1, tachypneic with respiratory rate 24-26, maintaining O2 sats of 87% on room air. Currently requiring 5-6 L to maintain O2 sats in the high 90s. Systolic blood pressure on admission 108/71, currently hypotensive with systolic blood pressure in the 80s. Elevated wbc's, 24.1, hemoglobin 10.1, platelets 206, neutrophils 22.7, INR 1.5, sodium 133, potassium 4.2, magnesium 1.8, bicarb 33 BUN 25, creatinine 0.4, lactic acid 2.6, alk phos 144, LDH 1318, C-reactive protein 13.9 BNP 737. Blood cultures ordered. Received 2 L of IV fluids. IV antibiotics of Zosyn, azithromycin initiated. Review of Systems ROS Statement: Those systems with pertinent positive or pertinent negative responses have been documented in the HPI. ROS Other: All systems not noted in ROS Statement are negative. 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, PT STATED HE HAS ENLARGED AORTA(PER CT SCAN -THORACIC AORTIC ANEURYSM 4.2 CM), "HOARSNESS", History of Any Multi-Drug Resistant Organisms: None Reported Past Surgical History: Adenoidectomy, Appendectomy, Heart Catheterization With Stent, Hernia Repair, Orthopedic Surgery, Tonsillectomy Additional Past Surgical History / Comment(s): LET ROTATOR CUFF REPAIR,ANAL FI STULA REPAIR, EGD/COLONOSCOPY,MULTIPLE BASAL CELL 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,AGUILAR INGUINAL HERNIA REPAIR.RIGHT SHOULDER SURGERY X2 Past Anesthesia/Blood Transfusion Reactions: No Reported Reaction Date of Last Stent Placement:: 2005 Past Psychological History: No Psychological Hx Reported Past Alcohol Use History: Occasional Past Drug Use History: None Reported - Past Family History Father Family Medical History: Cancer Additional Family Medical History / Comment(s): TESTICULAR, BONE Mother Family Medical History: Cancer Additional Family Medical History / Comment(s): BONE Medications and Allergies Home Medications Medication Instructions Recorded Confirmed Type Aspirin EC [Ecotrin Low Dose] 81 mg PO HS 07/21/16 11/27/20 History Omeprazole 20 mg PO BID@0800,1700 06/13/19 11/27/20 History Vitamin B Complex 1 cap PO DAILY 06/13/19 11/27/20 History atenoloL [Atenolol] 25 mg PO Q48H 07/17/20 11/27/20 History Fluticasone/Vilanterol [Breo 1 puff INHALATION RT-DAILY@1700 11/10/20 11/27/20 History Ellipta 200-25 Mcg INH] Acetaminophen Tab [Tylenol] 650 mg PO Q4HR PRN tab 11/19/20 11/27/20 Rx Albuterol Inhaler [Ventolin Hfa 2 puff INHALATION RT-QID puff 11/19/20 11/27/20 Rx Inhaler] Diclofenac Sodium Gel [Voltaren 2 gm TOPICAL QID PRN tube 11/19/20 11/27/20 Rx Gel] Petrolatum, White [Aquaphor] 1 applic TOPICAL DAILY PRN applic 11/19/20 11/27/20 Rx Rivaroxaban [Xarelto] 15 mg PO BID-W/MEALS tab 11/19/20 11/27/20 Rx Tiotropium 2.5 Mcg/Puff [Spiriva 2 puff INHALATION RT-DAILY puff 11/19/20 11/27/20 Rx Respimat 2.5 Mcg] predniSONE 20 mg PO DAILY #0 11/19/20 11/27/20 Rx Albuterol Inhaler [Ventolin Hfa 2 puff INHALATION RT-Q4H PRN 11/27/20 11/27/20 History Inhaler] Furosemide [Lasix] 20 mg PO DAILY@0800 11/27/20 11/27/20 History Lactobacillus Acidophilus 1 tab PO HS 11/27/20 11/27/20 History [Acidophilus] Lactose-Reduced Food [Ensure Plus] 240 ml PO BID 11/27/20 11/27/20 History Multivits,Th W-Ca,Fe,Oth Min 1 tab PO DAILY 11/27/20 11/27/20 History [Therapeutic M] Allergies Allergy/AdvReac Type Severity Reaction Status Date / Time No Known Allergies Allergy Verified 11/27/20 13:16 Physical Exam Vitals: Vital Signs Temp Pulse Resp BP Pulse Ox 11/27/20 12:33 72 24 88/67 100 11/27/20 11:57 24 11/27/20 11:48 99.1 F 79 26 H 108/71 87 L Intake and Output 11/26/20 11/27/20 11/27/20 22:59 06:59 14:59 Other: Weight 57.606 kg - Exam PHYSICAL EXAM: VITAL SIGNS: [As above] GENERAL: Alert and oriented 3, Sitting up in bed, NAD, hoarse HEENT: Conjunctivae normal. eyes normal. NECK: Supple, No JVD. CARDIOVASCULAR: S1, S2 regular. No murmur, gallops or rubs RESPIRATION: Less Congested. Breath sounds diminished in the bases witih scattered rhonchi, fine bibasilar crackles ABDOMEN: Soft, nontender . No guarding. no masses palpable. Bowel sounds heard. LEGS: Positive edema. No clubbing, no cyanosis. NERVOUS SYSTEM: Cranial N 2-12 grossly normal. No focal deficits. Weak. Skin: Warm and dry, no rash Results CBC & Chem 7: 11/27/20 12:32 11/27/20 12:32 Labs: Abnormal Lab Results - Last 24 Hours (Table) 11/27/20 11/27/20 11/27/20 Range/Units 12:32 12:32 12:32 WBC 24.1 H (3.8-10.6) k/uL RBC 3.15 L (4.30-5.90) m/uL Hgb 10.1 L (13.0-17.5) gm/dL Hct 31.1 L (39.0-53.0) % Neutrophils # 22.7 H (1.3-7.7) k/uL Lymphocytes # 0.3 L (1.0-4.8) k/uL PT 15.5 H (9.0-12.0) sec INR 1.5 H (<1.2) Sodium 133 L (137-145) mmol/L Chloride 97 L (98-107) mmol/L Carbon Dioxide 33 H (22-30) mmol/L BUN 25 H (9-20) mg/dL Creatinine 0.40 L (0.66-1.25) mg/dL Plasma Lactic Acid Rich (0.7-2.0) mmol/L Alkaline Phosphatase 144 H (38-126) U/L Lactate Dehydrogenase 1318 H (313-618) U/L C-Reactive Protein 13.9 H (<1.0) mg/dL Total Protein 5.6 L (6.3-8.2) g/dL Albumin 2.8 L (3.5-5.0) g/dL 11/27/20 Range/Units 12:32 WBC (3.8-10.6) k/uL RBC (4.30-5.90) m/uL Hgb (13.0-17.5) gm/dL Hct (39.0-53.0) % Neutrophils # (1.3-7.7) k/uL Lymphocytes # (1.0-4.8) k/uL PT (9.0-12.0) sec INR (<1.2) Sodium (137-145) mmol/L Chloride (98-107) mmol/L Carbon Dioxide (22-30) mmol/L BUN (9-20) mg/dL Creatinine (0.66-1.25) mg/dL Plasma Lactic Acid Rich 2.6 H* (0.7-2.0) mmol/L Alkaline Phosphatase (38-126) U/L Lactate Dehydrogenase (313-618) U/L C-Reactive Protein (<1.0) mg/dL Total Protein (6.3-8.2) g/dL Albumin (3.5-5.0) g/dL Assessment and Plan Assessment: Sepsis present on admission related to recurrent right basilar pneumonia. Recently hospitalized and discharged on 11/19/2020 with Acute on chronic hypoxic respiratory failure, secondary to right lower lobe pneumonia and small right- sided parapneumonic effusion with Bacteremia, alphahemolytic streptococcus, non- hemolytic strep. Reports he normally wears 2-1/2 L at home. Hypotension secondary to the above. MBS(prior hospitalization) reported mild impairment oral pharyngeal swallow, no evidence of penetration and/or aspiration. Regular diet, thin liquids recommended Bilateral lower extremity acute DVTs No PE, reported per CT Paroxysmal atrial fibrillation, chronic Significant unintentional weight loss of 40 pounds in the last 6-12 months, reported. Follow-up with GI outpatient for potential diagnostic EGD and colonoscopy. Possible Alpha 1 antitrypsin deficiency, lab results-send out Hoarse voice X 1 yr, reports he previously had fungal infection of the vocal cords, further follow-up outpatient with ENT recommended Hemoptysis Advanced emphysema, COPD stage IV History of angina pectoris CAD with history of stenting Pulmonary hypertension Hyperlipidemia History of SVT Gastroesophageal reflux disease Alcohol use History of basal cell skin cancer Former nicotine dependence 4 mm right kidney nonobstructing stone per CTA Osteoporosis Moderate protein calorie malnutrition, BMI 19.9 Plan: Continue on current medication regime ,monitoring and symptomatic treatment. IV fluid hydration, continue antibiotics, nebulized bronchodilators. Blood and sputum cultures pending. Pulmonary/packing house supervisor consult in place, recommendations pending. ICU bed pending. The impression and plan of care has been dictated as directed. : I performed a history and examination of this patient, discussed the same with the dictator. I agree with the dictator's note ,documented as a scribe. Any additional findings or plans will be noted.
[2020-11-27] MEDS: ACETAMINOPHEN TAB 325 MG TAB PO PRN (15:24)
[2020-11-27] MEDS: PANTOPRAZOLE 40 MG/10 ML VIAL IVP SCH (16:04)
[2020-11-27 16:36] LABS: Glucose,Whole Blood 97 mg/dL (75-99)
[2020-11-27] MEDS: ALBUTEROL NEBULIZED 2.5 MG/3 ML INHALATION SCH ×2 (17:05→19:17)
[2020-11-27] MEDS: ALBUTEROL HFA INHALER INHALATION SCH ×2 (17:06→19:18)
[2020-11-27] MEDS: INSULIN ASPART (NovoLOG) 100 UNIT/ML VIAL SQ SCH ×2 (17:17→20:29)
[2020-11-27] MEDS: RIVAROXABAN 15 MG TAB PO SCH (18:45)
[2020-11-27] MEDS: SYMBICORT 160-4.5 MCG INHALER INHALATION SCH (19:19)
--- NOTE | 2020-11-27 20:21 | P.CNPUL ---
History of Present Illness Consult date: 11/27/20 Reason for consult: pneumonia History of present illness: This is a 75-year-old male patient with severe bullous emphysema. Based on my records, the patient has advanced lung disease with an FEV1 of 22% of predicted. She is oxygen dependent between 2 and 3 L. He has been on a combination of Breo Ellipta and Stiolto and the patient uses albuterol nebulized treatments on estimated bases addition to prednisone 10 mg on a daily basis. His lung disease and stage. He has extensive bullous changes left lung and the right. He has extensive limitation of exercise capacity. He is cachectic. He has had recurrent pneumonia in addition multiple compression fractures of the spine, chronic and this involved the thoracolumbar spine. The patient has significant cachexia and protein calorie malnutrition with a BMI of 19.9. He has a Pol[place] type B aortic aneurysm, CAD a history of coronary stent, hyperlipidemia, history of skin cancer and osteoporosis. The patient was discharged to hospital on 11/19/2020 after being treated for an extensive right lung pneumonia and bacteremia with Streptococcus, nonhemolytic. He had positive blood cultures. He was treated with antibiotics and the patient was ultimately released home with [facility]. At the time of discharge, the patient was given a prednisone burst taper to complete. He was also asked to continue his maintenance insulin medications. Note that during his early hospitalization, the patient underwent a modified barium swallow that showed mild impairment of the oropharyngeal swallow without any indication of aspiration. He was asked to continue regular diet, and liquids was recommended. He was found to have bilateral lower extremity DVT and was maintained on anticoagulation with Xarelto. No evidence of pulmonary embolism based on the CAT scan of the chest. He did have some elevations 1 suspected to be related to hypoxemia and oxygen mismatch. 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 The patient came into the emergency department yesterday because of worsening shortness of breath. Obviously he remains debilitated. In the ED, the patient has T-max of 99.1. He was briefly found to be hypotensive with a systolic blood pressure in the mid 80s. The patient was given a total of 2 L of IV fluid bolus and the pressures responded without the use of any pressors. His white cell count is down to 24.1 compared to his earlier white cell counts and the patient has LFTs were normal, LDH was obviously elevated at 1318 with a CRP of 15.9 and the occult testing was negative. Chest x-ray showed right lower lobe consolidation, residual pneumonia compared to hisious chest x-ray with incomplete clearing. The patient was placed on a combination of Zosyn and Zithromax. The patient was given IV Solu-Medrol. Patient was admitted to the intensive care unit for further monitoring. He is currently on oxygen at 5 L is also made recommendations for lifestyle utilized intermittently. No altered mentation. He is awake and appropriate answering questions appropriately. Review of Systems Constitutional: Reports chronic pain, Reports fatigue, Reports lethargy, Reports poor appetite, Reports weakness, Reports weight loss Eyes: denies as per HPI, denies blurred vision, denies bulging eye, denies decreased vision, denies diplopia, denies discharge, denies dry eye, denies irritation, denies itching, denies pain, denies photophobia, denies loss of peripheral vision, denies loss of vision, denies tunnel vision/blind spots Ears, nose, mouth and throat: Reports as per HPI, Reports voice changes Breasts: absent: as per HPI, gynecomastia Cardiovascular: Reports claudication, Reports decreased exercise tolerance, Reports dyspnea on exertion, Reports edema, Reports shortness of breath Respiratory: Reports cough, Reports dyspnea, Reports home oxygen, Reports respiratory infections, Reports wheezing Gastrointestinal: Reports as per HPI Genitourinary: Reports as per HPI Musculoskeletal: Reports fractures Musculoskeletal: absent: ankle pain, ankle stiffness, ankle swelling, as per HPI, elbow pain, elbow stiffness, elbow swelling, foot pain, foot stiffness, foot swelling, hand pain, hand stiffness, hand swelling, hip pain, hip stiffness, hip swelling, knee pain, knee stiffness, knee swelling, shoulder pain, shoulder stiffness, shoulder swelling, wrist pain, wrist stiffness, wrist swelling Integumentary: Reports as per HPI Neurological: Reports weakness Endocrine: Reports as per HPI, Reports fatigue, Reports weight change Hematologic/Lymphatic: Reports as per HPI Allergic/Immunologic: Reports as per HPI 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, PT STATED HE HAS ENLARGED AORTA(PER CT SCAN -THORACIC AORTIC ANEURYSM 4.2 CM), "HOARSNESS", History of Any Multi-Drug Resistant Organisms: None Reported Past Surgical History: Adenoidectomy, Appendectomy, Heart Catheterization With Stent, Hernia Repair, Orthopedic Surgery, Tonsillectomy Additional Past Surgical History / Comment(s): LET ROTATOR CUFF REPAIR,ANAL FISTULA REPAIR, EGD/COLONOSCOPY,MULTIPLE BASAL CELL 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,AGUILAR INGUINAL HERNIA REPAIR.RIGHT SHOULDER SURGERY X2 Past Anesthesia/Blood Transfusion Reactions: No Reported Reaction Date of Last Stent Placement:: 2005 Smoking Status: Former smoker - Past Family History Father Family Medical History: Cancer Additional Family Medical History / Comment(s): TESTICULAR, BONE Mother Family Medical History: Cancer Additional Family Medical History / Comment(s): BONE Medications and Allergies Home Medications Medication Instructions Recorded Confirmed Type Aspirin EC [Ecotrin Low Dose] 81 mg PO HS 07/21/16 11/27/20 History Omeprazole 20 mg PO BID@0800,1700 06/13/19 11/27/20 History Vitamin B Complex 1 cap PO DAILY 06/13/19 11/27/20 History atenoloL [Atenolol] 25 mg PO Q48H 07/17/20 11/27/20 History Fluticasone/Vilanterol [Breo 1 puff INHALATION RT-DAILY@1700 11/10/20 11/27/20 History Ellipta 200-25 Mcg INH] Acetaminophen Tab [Tylenol] 650 mg PO Q4HR PRN tab 11/19/20 11/27/20 Rx Albuterol Inhaler [Ventolin Hfa 2 puff INHALATION RT-QID puff 11/19/20 11/27/20 Rx Inhaler] Diclofenac Sodium Gel [Voltaren 2 gm TOPICAL QID PRN tube 11/19/20 11/27/20 Rx Gel] Petrolatum, White [Aquaphor] 1 applic TOPICAL DAILY PRN applic 11/19/20 11/27/20 Rx Rivaroxaban [Xarelto] 15 mg PO BID-W/MEALS tab 11/19/20 11/27/20 Rx Tiotropium 2.5 Mcg/Puff [Spiriva 2 puff INHALATION RT-DAILY puff 11/19/20 11/27/20 Rx Respimat 2.5 Mcg] predniSONE 20 mg PO DAILY #0 11/19/20 11/27/20 Rx Albuterol Inhaler [Ventolin Hfa 2 puff INHALATION RT-Q4H PRN 11/27/20 11/27/20 History Inhaler] Furosemide [Lasix] 20 mg PO DAILY@0800 11/27/20 11/27/20 History Lactobacillus Acidophilus 1 tab PO HS 11/27/20 11/27/20 History [Acidophilus] Lactose-Reduced Food [Ensure Plus] 240 ml PO BID 11/27/20 11/27/20 History Multivits,Th W-Ca,Fe,Oth Min 1 tab PO DAILY 11/27/20 11/27/20 History [Therapeutic M] Allergies Allergy/AdvReac Type Severity Reaction Status Date / Time No Known Allergies Allergy Verified 11/27/20 13:16 Physical Exam Vitals: Vital Signs Temp Pulse Resp BP Pulse Ox 11/27/20 19:20 97 11/27/20 19:00 56 L 29 H 84/57 96 11/27/20 18:00 57 L 15 84/59 96 11/27/20 17:00 61 17 96/62 96 11/27/20 16:41 99.1 F 68 26 H 102/66 97 11/27/20 16:40 96 11/27/20 16:37 98.1 F 62 39 H 107/60 93 L 11/27/20 15:45 68 26 H 102/66 97 11/27/20 14:22 66 24 97/64 97 11/27/20 12:33 72 24 88/67 100 11/27/20 11:57 24 11/27/20 11:48 99.1 F 79 26 H 108/71 87 L Intake and Output 11/27/20 11/27/20 11/27/20 06:59 14:59 22:59 Intake Total 620 Output Total 100 Balance 520 Intake: Intake, IV Titration 520 Amount Sodium Chloride 0.9% 1, 520 000 ml @ 130 mls/hr IV . Q7H42M [facility] Rx#:[id number] Oral 100 Output: Urine 100 Other: Voiding Method External Catheter Weight 57.606 kg 59.5 kg GENERAL EXAM: Alert, very pleasant, 75-year-old white male, on 6 L of oxygen with pulse ox between 98%, moderately dyspneic with conversation, and even trying to eat patient seems to be short of breath, sounds congested comfortable in no apparent distress. The patient has extensive cachexia with a Bosman this BMI of 19 HEAD: Normocephalic/atraumatic. EYES: Normal reaction of pupils, equal size. Conjunctiva pink, sclera white. NOSE: Clear with pink turbinates. THROAT: No erythema or exudates. NECK: No masses, no JVD, no thyroid enlargement, no adenopathy. CHEST: No chest wall deformity. Symmetrical expansion. LUNGS: Equal air entry with bibasilar crackles, congested cough, CVS: Regular rate and rhythm, normal S1 and S2, no gallops, no murmurs, no rubs ABDOMEN: Soft, nontender. No hepatosplenomegaly, normal bowel sounds, no guarding or rigidity. EXTREMITIES: No clubbing, generally swollen no cyanosis, 2+ pulses and upper and lower extremities. MUSCULOSKELETAL: Muscle strength and tone normal. SPINE: No scoliosis or deformity SKIN: No rashes CENTRAL NERVOUS SYSTEM: Alert and oriented -3. No focal deficits, tone is normal in all 4 extremities. PSYCHIATRIC: Alert and oriented -3. Appropriate affect. Intact judgment and insight. Results - Laboratory Findings CBC and BMP: 11/27/20 12:32 11/27/20 12:32 PT/INR, D-dimer PT 15.5 sec (9.0-12.0) H 11/27/20 12:32 INR 1.5 (<1.2) H 11/27/20 12:32 Abnormal lab findings: Abnormal Labs 11/27/20 11/27/20 11/27/20 12:32 12:32 12:32 WBC 24.1 H RBC 3.15 L Hgb 10.1 L Hct 31.1 L Neutrophils # 22.7 H Lymphocytes # 0.3 L PT 15.5 H INR 1.5 H Sodium 133 L Chloride 97 L Carbon Dioxide 33 H BUN 25 H Creatinine 0.40 L Plasma Lactic Acid Rich Alkaline Phosphatase 144 H Lactate Dehydrogenase 1318 H C-Reactive Protein 13.9 H Total Protein 5.6 L Albumin 2.8 L 11/27/20 11/27/20 12:32 16:16 WBC RBC Hgb Hct Neutrophils # Lymphocytes # PT INR Sodium Chloride Carbon Dioxide BUN Creatinine Plasma Lactic Acid Rich 2.6 H* 2.5 H* Alkaline Phosphatase Lactate Dehydrogenase C-Reactive Protein Total Protein Albumin Assessment and Plan Plan: 1. Acute on chronic hypoxic respiratory failure secondary to right lower lobe pneumonia With ongoing right lung consolidation, residual of a previous right lower lobe pneumonia was thought to be related to a streptococcal nonhemolytic out for pneumonia. Patient presented worsening shortness of breath, dehydration, hypotension, leukocytosis, consider underlying sepsis. The patient responsed to IV fluids and the patient has not required pressors yet. 2. History of stage IV COPD with recent FEV1 of 22% of predicted on home oxygen 2 L/m, maintained on a combination of Stiolto, Breo Ellipta, prednisone and 02 at 2-3 liters/min, outpatient basis. He is cachectic and extremely debilitated and has a very poor baseline performance and functional status 3. Bilateral lower extremity DVT , maintained on Xarelto 4. moderate protein calorie malnutrition, BMI 19 5. CAD with previous stenting 6. Hypertension 7. Hyperlipidemia 8. 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 History of basal cell cancer with multiple lesions removed from his back and arms 10. Osteoporosis and chronic compression fracture of the lumbosacral spine 11. Multiple pneumonias, most recent involving the right lower lobe 12 leukocytosis improved compared to the last hospitalization 13 Lactic acidosis, mild Plan Titrate FiO2 to maintain a saturation above 90%. Utilizes BiPAP overnight at a pressure of 10/5 and titrate FiO2 to maintain a saturation above 90%. DuoNeb nebulized treatments around the clock 4 times a day Restart SoluMedrol 60 every 6 hours Cover the patient with a combination of Zithromax and Rocephin Obtain sputum Gram stain and culture Obtain blood cultures Check pro calcitonin level IV fluids and the patient already received 2 L bolus. No need for pressors Monitored hemodynamics Mucinex DM for cough and congestion Xarelto regarding LE DVT , bilateral Poor prognosis and will continue to FU in the MICU COVID 19 testing was negative
[2020-11-27 20:30] LABS: Glucose,Whole Blood 124 mg/dL (75-99)
[2020-11-27] MEDS: ASPIRIN 81 MG PO SCH (20:32)
[2020-11-27] MEDS: methylPREDNISolone SOD SUCCI 125 MG/2 ML VIAL IV SCH (20:32)
[2020-11-27] MEDS: guaiFENesin-DM 600/30MG 1 EACH TAB.ER.12H PO SCH (20:32)
[2020-11-27] MEDS: LACTOBACILLUS ACIDOPH & BULGAR 1 EACH PACKET PO SCH (20:32)
[2020-11-27] MEDS ORDERED: NON FORMULARY DRUG (Lactose-Reduced Food [Ensure Plus] 237 ML Liquid) PO SCH (21:00)
[2020-11-27] MEDS: PIPERACILLIN-TAZOBACTAM 3.375 GM in SODIUM CHLORIDE 0.9% 100 ML IVPB SCH (23:21)
[2020-11-28] MEDS: ALBUTEROL HFA INHALER INHALATION SCH ×5 (03:16→20:00)
[2020-11-28 04:14] LABS: Ferritin 1376.3 ng/mL (22.0-322.0)
[2020-11-28 05:06] LABS: Basophils % (A) 0 %; Eosinophils % (A) 0 %; HCT 25.9 % (39.0-53.0); Hypochromasia Slight; Lymphocytes # (A) 0.4 k/uL (1.0-4.8); Lymphocytes % (A) 3 %; MCH 31.9 pg (25.0-35.0); MCV 99.7 fL (80.0-100.0); Macrocytosis Slight; Mean Platelet Volume 7.7; Monocytes # (A) 0.2 k/uL (0-1.0); Monocytes % (A) 2 %; Neutrophils # (A) 11.3 k/uL (1.3-7.7); Neutrophils % (A) 95 %; Platelet Count 143 k/uL (150-450); RDW 15.2 % (11.5-15.5); WBC 11.9 k/uL (3.8-10.6)
[2020-11-28 05:14] LABS: HGB 8.3 gm/dL (13.0-17.5)
[2020-11-28 05:23] LABS: African American GFR (CKD) >90 (>60 ml/min/1.73 sqM); Anion Gap 2 mmol/L; Blood Urea Nitrogen 20 mg/dL (9-20); Calcium 7.5 mg/dL (8.4-10.2); Carbon Dioxide 28 mmol/L (22-30); Chloride 104 mmol/L (98-107); Glucose 102 mg/dL (74-99); Non-African American GFR(CKD) >90 (>60 ml/min/1.73 sqM); Potassium 4.3 mmol/L (3.5-5.1); Sodium 134 mmol/L (137-145)
--- NOTE | 2020-11-28 06:02 | XR ---
EXAMINATION TYPE: XR chest 1V DATE OF EXAM: 11/28/2020 CLINICAL HISTORY: Difficulty breathing and pneumonia progress study. TECHNIQUE: Single AP portable semiupright view of the chest is obtained. COMPARISON: Chest x-ray from one day earlier and older studies FINDINGS: There is background chronic emphysematous and pulmonary fibrotic changes with right lower lung opacity. The cardiac silhouette size remains within normal limits with atherosclerotic and ecta tic aortic knob. The osseous structures remain demineralized. Chronic compression type fractures le ss well seen. Right-sided volume loss redemonstrated. IMPRESSION: Possible acute infiltrate right lower lung on background chronic changes. No significant change from one day earlier.
[2020-11-28] MEDS: INSULIN ASPART (NovoLOG) 100 UNIT/ML VIAL SQ SCH ×4 (06:15→20:57)
[2020-11-28] MEDS: SODIUM CHLORIDE 0.9% 1,000 ML IV SCH ×3 (06:21→23:10)
[2020-11-28] MEDS: RIVAROXABAN 15 MG TAB PO SCH ×2 (06:56→18:07)
[2020-11-28] MEDS ORDERED: IPRATROPIUM 0.5 MG/2.5 ML NEBU INHALATION SCH (08:00)
[2020-11-28] MEDS ORDERED: FUROSEMIDE 20 MG TAB PO SCH (08:00)
[2020-11-28] MEDS ORDERED: NON FORMULARY DRUG (Vitamin B Complex [Vitamin B Complex] 1 EACH Capsule) PO SCH (09:00)
[2020-11-28] MEDS ORDERED: AZITHROMYCIN 500 MG in SODIUM CHLORIDE 0.9% 250 ML IVPB SCH (09:00)
--- NOTE | 2020-11-28 09:13 | P.PN ---
Subjective Progress Note Date: 11/28/202020, the patient is being seen for a follow-up. She was readmitted yesterday for a right lung pneumonia and COPD exacerbation. He was also dehydrated and hypotensive and responded nicely to IV fluids. He also responded to antibiotics and steroids. Overnight, the patient spent on a BiPAP at a pressure of 10/5 with an FiO2 of 35% and currently is on oxygen at 2 L per minute nasal cannula. His white cell count is down to 11.9. Hemoglobin is at 8.3 which is stable. Electrolytes are within normal limits. Lactic acid level dropped down to 2.0. Chest x-ray from today showing further clearing of the right lung consolidation. He has a congested cough. Unable to bring up much sputum. He was able to produce some and we were sending it for cultures. He was encouraged to use incentive spirometer. His oral intake is quite diminished and he is going to be provided some diet. IV fluids are in the form of 0.9 at the rate of 1 30 mL an hour. He is weak. He is awake and alert. Following commands and communicating without any major issues. No focal neurological deficits. Objective - Vital Signs Vital signs: Vital Signs Temp 97.7 F 11/28/20 04:00 Pulse 67 11/28/20 07:00 Resp 15 11/28/20 07:00 BP 109/66 11/28/20 07:00 Pulse Ox 97 11/28/20 07:00 Intake & Output 11/27/20 11/28/20 11/28/20 18:59 06:59 18:59 Intake Total 390 1790 260 Output Total 100 350 150 Balance 290 1440 110 Weight 59.5 kg 64.5 kg Intake: IV 1560 260 Sodium Chloride 0.9% 1, 1560 260 000 ml @ 130 mls/hr IV . Q7H42M [facility] Rx#:[id number] Intake, IV Titration 390 130 Amount Sodium Chloride 0.9% 1, 390 130 000 ml @ 130 mls/hr IV . Q7H42M [facility] Rx#:[id number] Oral 100 Output: Urine 100 350 150 Other: Voiding Method External Catheter External Catheter - Exam GENERAL EXAM: Alert, very pleasant, 75-year-old white male, on 2 L of oxygen with pulse ox between 98%, moderately dyspneic with conversation, and even trying to eat patient seems to be short of breath, sounds congested comfortable in no apparent distress. The patient has extensive cachexia with a BMI of 19 HEAD: Normocephalic/atraumatic. EYES: Normal reaction of pupils, equal size. Conjunctiva pink, sclera white. NOSE: Clear with pink turbinates. THROAT: No erythema or exudates. NECK: No masses, no JVD, no thyroid enlargement, no adenopathy. CHEST: No chest wall deformity. Symmetrical expansion. LUNGS: Equal air entry with bibasilar crackles, congested cough, CVS: Regular rate and rhythm, normal S1 and S2, no gallops, no murmurs, no rubs ABDOMEN: Soft, nontender. No hepatosplenomegaly, normal bowel sounds, no guarding or rigidity. EXTREMITIES: No clubbing, generally swollen no cyanosis, 2+ pulses and upper and lower extremities. MUSCULOSKELETAL: Muscle strength and tone normal. SPINE: No scoliosis or deformity SKIN: No rashes CENTRAL NERVOUS SYSTEM: Alert and oriented -3. No focal deficits, tone is normal in all 4 extremities. PSYCHIATRIC: Alert and oriented -3. Appropriate affect. Intact judgment and insight. - Labs CBC & Chem 7: 11/28/20 04:51 11/28/20 04:51 Labs: Abnormal Lab Results - Last 24 Hours (Table) 11/27/20 11/27/20 11/27/20 Range/Units 12:32 12:32 12:32 WBC 24.1 H (3.8-10.6) k/uL RBC 3.15 L (4.30-5.90) m/uL Hgb 10.1 L (13.0-17.5) gm/dL Hct 31.1 L (39.0-53.0) % Plt Count (150-450) k/uL Neutrophils # 22.7 H (1.3-7.7) k/uL Lymphocytes # 0.3 L (1.0-4.8) k/uL PT 15.5 H (9.0-12.0) sec INR 1.5 H (<1.2) Sodium 133 L (137-145) mmol/L Chloride 97 L (98-107) mmol/L Carbon Dioxide 33 H (22-30) mmol/L BUN 25 H (9-20) mg/dL Creatinine 0.40 L (0.66-1.25) mg/dL Glucose (74-99) mg/dL POC Glucose (mg/dL) (75-99) mg/dL Plasma Lactic Acid Rich (0.7-2.0) mmol/L Calcium (8.4-10.2) mg/dL Ferritin 1376.3 H (22.0-322.0) ng/mL Alkaline Phosphatase 144 H (38-126) U/L Lactate Dehydrogenase 1318 H (313-618) U/L C-Reactive Protein 13.9 H (<1.0) mg/dL Total Protein 5.6 L (6.3-8.2) g/dL Albumin 2.8 L (3.5-5.0) g/dL 11/27/20 11/27/20 11/27/20 Range/Units 12:32 16:16 20:28 WBC (3.8-10.6) k/uL RBC (4.30-5.90) m/uL Hgb (13.0-17.5) gm/dL Hct (39.0-53.0) % Plt Count (150-450) k/uL Neutrophils # (1.3-7.7) k/uL Lymphocytes # (1.0-4.8) k/uL PT (9.0-12.0) sec INR (<1.2) Sodium (137-145) mmol/L Chloride (98-107) mmol/L Carbon Dioxide (22-30) mmol/L BUN (9-20) mg/dL Creatinine (0.66-1.25) mg/dL Glucose (74-99) mg/dL POC Glucose (mg/dL) 124 H (75-99) mg/dL Plasma Lactic Acid Rich 2.6 H* 2.5 H* (0.7-2.0) mmol/L Calcium (8.4-10.2) mg/dL Ferritin (22.0-322.0) ng/mL Alkaline Phosphatase (38-126) U/L Lactate Dehydrogenase (313-618) U/L C-Reactive Protein (<1.0) mg/dL Total Protein (6.3-8.2) g/dL Albumin (3.5-5.0) g/dL 11/28/20 11/28/20 Range/Units 04:51 04:51 WBC 11.9 H (3.8-10.6) k/uL RBC 2.60 L (4.30-5.90) m/uL Hgb 8.3 L D (13.0-17.5) gm/dL Hct 25.9 L (39.0-53.0) % Plt Count 143 L (150-450) k/uL Neutrophils # 11.3 H (1.3-7.7) k/uL Lymphocytes # 0.4 L (1.0-4.8) k/uL PT (9.0-12.0) sec INR (<1.2) Sodium 134 L (137-145) mmol/L Chloride (98-107) mmol/L Carbon Dioxide (22-30) mmol/L BUN (9-20) mg/dL Creatinine 0.39 L (0.66-1.25) mg/dL Glucose 102 H (74-99) mg/dL POC Glucose (mg/dL) (75-99) mg/dL Plasma Lactic Acid Rich (0.7-2.0) mmol/L Calcium 7.5 L (8.4-10.2) mg/dL Ferritin (22.0-322.0) ng/mL Alkaline Phosphatase (38-126) U/L Lactate Dehydrogenase (313-618) U/L C-Reactive Protein (<1.0) mg/dL Total Protein (6.3-8.2) g/dL Albumin (3.5-5.0) g/dL Microbiology - Last 24 Hours (Table) 11/27/20 17:19 Gram Stain - Preliminary Sputum Sputum Culture - Preliminary Assessment and Plan Plan: 1. Acute on chronic hypoxic respiratory failure secondary to right lower lobe pneumonia With ongoing right lung consolidation, residual of a previous right lower lobe pneumonia was thought to be related to a streptococcal nonhemolytic out for pneumonia. Patient presented worsening shortness of breath, dehydration, hypotension, leukocytosis, consider underlying sepsis. The patient responsed to IV fluids and the patient has not required pressors yet. Clinically, much improved. Leukocytosis improving. Hemodynamically remains stable. Less short of breath. Utilizes BiPAP overnight and currently is on 22 L of oxygen by nasal cannula. Breathing is less labored compared to yesterday. Did not require any pressors. 2. History of stage IV COPD with recent FEV1 of 22% of predicted on home oxygen 2 L/m, maintained on a combination of Stiolto, Breo Ellipta, prednisone and 02 at 2-3 liters/min, outpatient basis. He is cachectic and extremely debilitated and has a very poor baseline performance and functional status 3. Bilateral lower extremity DVT , maintained on Xarelto 4. moderate protein calorie malnutrition, BMI 19 5. CAD with previous stenting 6. Hypertension 7. Hyperlipidemia 8. 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 History of basal cell cancer with multiple lesions removed from his back and arms 10. Osteoporosis and chronic compression fracture of the lumbosacral spine 11. Multiple pneumonias, most recent involving the right lower lobe 12 leukocytosis improved compared to the last hospitalization, improving 13 Lactic acidosis, mild, improving Plan Titrate FiO2 to maintain a saturation above 90%. Currently is on 2 L of oxygen by nasal cannula. Utilizing BiPAP overnight DuoNeb nebulized treatments around the clock 4 times a day SoluMedrol 60 every 6 hours Zithromax and Rocephin Obtain sputum Gram stain and culture Obtain blood cultures Check pro calcitonin level is still pending IV fluids @ 130 mL an hour normal saline Monitored hemodynamics Mucinex DM for cough and congestion Xarelto regarding LE DVT , bilateral Poor prognosis and will continue to FU in the MICU COVID 19 testing was negative Aggressive pulmonary toileting. We'll leave the intensive care unit at a later stage
[2020-11-28] MEDS: methylPREDNISolone SOD SUCCI 125 MG/2 ML VIAL IV SCH ×2 (09:18→20:58)
[2020-11-28] MEDS: guaiFENesin-DM 600/30MG 1 EACH TAB.ER.12H PO SCH ×2 (09:18→23:10)
[2020-11-28] MEDS: MULTIVITAMINS, THERA 1 EACH TAB PO SCH (09:18)
[2020-11-28] MEDS: PANTOPRAZOLE 40 MG/10 ML VIAL IVP SCH (09:19)
[2020-11-28] MEDS: predniSONE 20 MG TAB PO SCH (09:19)
[2020-11-28] MEDS: PIPERACILLIN-TAZOBACTAM 3.375 GM in SODIUM CHLORIDE 0.9% 100 ML IVPB SCH ×2 (09:19→17:51)
[2020-11-28] MEDS: SYMBICORT 160-4.5 MCG INHALER INHALATION SCH ×2 (10:25→19:55)
[2020-11-28] MEDS: TIOTROPIUM 2.5 MCG INHALER INHALATION SCH (10:26)
[2020-11-28 10:52] LABS: Glucose,Whole Blood 193 mg/dL (75-99)
[2020-11-28] MEDS: ACETAMINOPHEN TAB 325 MG TAB PO PRN ×2 (11:40→20:58)
--- NOTE | 2020-11-28 12:08 | P.PN ---
Subjective Progress Note Date: 11/28/20 This is a 75-year-old gentleman recently discharged on 11/19/20 with acute on chronic hypoxic respiratory failure, right lower lobe pneumonia with small right-sided parapneumonic effusion with alpha hemolytic streptococcus, non- hemolytic strep bacteremia, presented to the ER with worsening shortness of yuri th, cough, fatigue. Denies chest pain, palpitations. Denies lightheadedness, dizziness or focal deficits. Denies fever or chills. COVID-19 detected. Chest x-ray reported possible acute infiltrate right lower lung. He reporting normal sinus rhythm sinus arrhythmia, left anterior fascicular block. Temperature 99.1, tachypneic with respiratory rate 24-26, maintaining O2 sats of 87% on room air. Currently requiring 5-6 L to maintain O2 sats in the high 90s. Systolic blood pressure on admission 108/71, currently hypotensive with systolic blood pressure in the 80s. Elevated wbc's, 24.1, hemoglobin 10.1, platelets 206, neutrophils 22.7, INR 1.5, sodium 133, potassium 4.2, magnesium 1.8, bicarb 33 BUN 25, creatinine 0.4, lactic acid 2.6, alk phos 144, LDH 1318, C-reactive protein 13.9 BNP 737. Blood cultures ordered. Received 2 L of IV fluids. IV antibiotics of Zosyn, azithromycin initiated. 11/28/2020 maintained on antibiotics, steroids, IV fluid hydration and BiPAP overnight. Shortness of breath improved, O2 weaned down to 2 L nasal cannula maintaining O2 sats in the high 90s. Chest x-ray reporting no significant change, possible acute infiltrate right lower lung. Lactic acid down to 2. Afebrile, T-max 99.1, WBC down to 11.9. Hemoglobin 8.3, platelets 143. Sodium 134, potassium 4.3, BUN 20, creatinine 0.39. Blood sugars controlled. Denies chest pain, palpitations. Objective - Vital Signs Vital signs: Vital Signs Temp 97.8 F 11/28/20 08:00 Pulse 72 11/28/20 09:00 Resp 25 H 11/28/20 09:00 BP 111/85 11/28/20 09:00 Pulse Ox 97 11/28/20 09:00 Intake & Output 11/27/20 11/28/20 11/28/20 18:59 06:59 18:59 Intake Total 390 1790 260 Output Total 100 350 150 Balance 290 1440 110 Weight 59.5 kg 64.5 kg Intake: IV 1560 260 Sodium Chloride 0.9% 1, 1560 260 000 ml @ 130 mls/hr IV . Q7H42M [facility] Rx#:[id number] Intake, IV Titration 390 130 Amount Sodium Chloride 0.9% 1, 390 130 000 ml @ 130 mls/hr IV . Q7H42M [facility] Rx#:[id number] Oral 100 Output: Urine 100 350 150 Other: Voiding Method External Catheter External Catheter External Catheter - Exam - Exam PHYSICAL EXAM: VITAL SIGNS: [As above] GENERAL: Cachectic, Alert and oriented 3, Sitting up in bed, NAD, hoarse, generalized weakness HEENT: Conjunctivae normal. eyes normal. NECK: Supple, No JVD. CARDIOVASCULAR: S1, S2 regular. No murmur, gallops or rubs RESPIRATION: Less Congested. Breath sounds diminished in the bases, fine bibasilar crackles ABDOMEN: Soft, nontender . No guarding. no masses palpable. Bowel sounds heard. LEGS: Positive edema. No clubbing, no cyanosis. NERVOUS SYSTEM: Cranial N 2-12 grossly normal. No focal deficits. Weak. Skin: Warm and dry, no rash - Labs CBC & Chem 7: 11/28/20 04:51 11/28/20 04:51 Labs: Abnormal Lab Results - Last 24 Hours (Table) 11/27/20 11/27/20 11/27/20 Range/Units 12:32 12:32 12:32 WBC 24.1 H (3.8-10.6) k/uL RBC 3.15 L (4.30-5.90) m/uL Hgb 10.1 L (13.0-17.5) gm/dL Hct 31.1 L (39.0-53.0) % Plt Count (150-450) k/uL Neutrophils # 22.7 H (1.3-7.7) k/uL Lymphocytes # 0.3 L (1.0-4.8) k/uL PT 15.5 H (9.0-12.0) sec INR 1.5 H (<1.2) Sodium 133 L (137-145) mmol/L Chloride 97 L (98-107) mmol/L Carbon Dioxide 33 H (22-30) mmol/L BUN 25 H (9-20) mg/dL Creatinine 0.40 L (0.66-1.25) mg/dL Glucose (74-99) mg/dL POC Glucose (mg/dL) (75-99) mg/dL Plasma Lactic Acid Rich (0.7-2.0) mmol/L Calcium (8.4-10.2) mg/dL Ferritin 1376.3 H (22.0-322.0) ng/mL Alkaline Phosphatase 144 H (38-126) U/L Lactate Dehydrogenase 1318 H (313-618) U/L C-Reactive Protein 13.9 H (<1.0) mg/dL Total Protein 5.6 L (6.3-8.2) g/dL Albumin 2.8 L (3.5-5.0) g/dL 11/27/20 11/27/20 11/27/20 Range/Units 12:32 16:16 20:28 WBC (3.8-10.6) k/uL RBC (4.30-5.90) m/uL Hgb (13.0-17.5) gm/dL Hct (39.0-53.0) % Plt Count (150-450) k/uL Neutrophils # (1.3-7.7) k/uL Lymphocytes # (1.0-4.8) k/uL PT (9.0-12.0) sec INR (<1.2) Sodium (137-145) mmol/L Chloride (98-107) mmol/L Carbon Dioxide (22-30) mmol/L BUN (9-20) mg/dL Creatinine (0.66-1.25) mg/dL Glucose (74-99) mg/dL POC Glucose (mg/dL) 124 H (75-99) mg/dL Plasma Lactic Acid Rich 2.6 H* 2.5 H* (0.7-2.0) mmol/L Calcium (8.4-10.2) mg/dL Ferritin (22.0-322.0) ng/mL Alkaline Phosphatase (38-126) U/L Lactate Dehydrogenase (313-618) U/L C-Reactive Protein (<1.0) mg/dL Total Protein (6.3-8.2) g/dL Albumin (3.5-5.0) g/dL 11/28/20 11/28/20 Range/Units 04:51 04:51 WBC 11.9 H (3.8-10.6) k/uL RBC 2.60 L (4.30-5.90) m/uL Hgb 8.3 L D (13.0-17.5) gm/dL Hct 25.9 L (39.0-53.0) % Plt Count 143 L (150-450) k/uL Neutrophils # 11.3 H (1.3-7.7) k/uL Lymphocytes # 0.4 L (1.0-4.8) k/uL PT (9.0-12.0) sec INR (<1.2) Sodium 134 L (137-145) mmol/L Chloride (98-107) mmol/L Carbon Dioxide (22-30) mmol/L BUN (9-20) mg/dL Creatinine 0.39 L (0.66-1.25) mg/dL Glucose 102 H (74-99) mg/dL POC Glucose (mg/dL) (75-99) mg/dL Plasma Lactic Acid Rich (0.7-2.0) mmol/L Calcium 7.5 L (8.4-10.2) mg/dL Ferritin (22.0-322.0) ng/mL Alkaline Phosphatase (38-126) U/L Lactate Dehydrogenase (313-618) U/L C-Reactive Protein (<1.0) mg/dL Total Protein (6.3-8.2) g/dL Albumin (3.5-5.0) g/dL Microbiology - Last 24 Hours (Table) 11/27/20 17:19 Gram Stain - Preliminary Sputum Sputum Culture - Preliminary Assessment and Plan Assessment: Sepsis present on admission related to ongoing right basilar pneumonia.Recently hospitalized and discharged on 11/19/2020 with Acute on chronic hypoxic r espiratory failure, secondary to right lower lobe pneumonia and small right- sided parapneumonic effusion with Bacteremia, alphahemolytic streptococcus, non- hemolytic strep. Reports he normally wears 2-1/2 L at home. Dehydration Hypotension secondary to the above. Leukocytosis improving MBS(prior hospitalization) reported mild impairment oral pharyngeal swallow, no evidence of penetration and/or aspiration. Regular diet, thin liquids recommended Bilateral lower extremity acute DVTs, maintained on Xarelto No PE, reported per CT Paroxysmal atrial fibrillation, chronic Significant unintentional weight loss of 40 pounds in the last 6-12 months, reported. Follow-up with GI outpatient for potential diagnostic EGD and colonoscopy. 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 Hemoptysis Advanced emphysema, COPD stage IV History of angina pectoris CAD with history of stenting Pulmonary hypertension Hyperlipidemia History of SVT Gastroesophageal reflux disease Alcohol use History of basal cell skin cancer Former nicotine dependence Osteoporosis Moderate protein calorie malnutrition, BMI 19.9 Medical debilitation, poor functional status Plan: Continue on current medication regime ,monitoring and symptomatic treatment. IV fluid hydration, continue antibiotics, nebulized bronchodilators, steroids. Aggressive pulmonary toileting. Blood and sputum cultures pending. ICU management as per newspaper clipper. PT/OT, extremely weak. The impression and plan of care has been dictated as directed. : I performed a history and examination of this patient, discussed the same with the dictator. I agree with the dictator's note ,documented as a scribe. Any additional findings or plans will be noted.
[2020-11-28 17:10] LABS: Glucose,Whole Blood 189 mg/dL (75-99)
[2020-11-28 20:17] LABS: Glucose,Whole Blood 121 mg/dL (75-99)
[2020-11-28] MEDS: ASPIRIN 81 MG PO SCH (20:58)
[2020-11-28] MEDS: LACTOBACILLUS ACIDOPH & BULGAR 1 EACH PACKET PO SCH (20:58)
[2020-11-29] MEDS: PIPERACILLIN-TAZOBACTAM 3.375 GM in SODIUM CHLORIDE 0.9% 100 ML IVPB SCH ×3 (02:57→15:46)
[2020-11-29 06:06] LABS: Glucose,Whole Blood 109 mg/dL (75-99)
[2020-11-29] MEDS: INSULIN ASPART (NovoLOG) 100 UNIT/ML VIAL SQ SCH ×4 (06:32→20:58)
[2020-11-29] MEDS: SODIUM CHLORIDE 0.9% 1,000 ML IV SCH ×2 (07:04→12:15)
[2020-11-29] MEDS: RIVAROXABAN 15 MG TAB PO SCH ×2 (07:05→16:59)
[2020-11-29] MEDS: ALBUTEROL HFA INHALER INHALATION SCH ×3 (08:22→20:48)
[2020-11-29] MEDS: SYMBICORT 160-4.5 MCG INHALER INHALATION SCH ×2 (08:23→20:48)
[2020-11-29] MEDS: TIOTROPIUM 2.5 MCG INHALER INHALATION SCH (08:23)
[2020-11-29] MEDS: AZITHROMYCIN 500 MG TAB PO SCH (08:30)
[2020-11-29] MEDS: MULTIVITAMINS, THERA 1 EACH TAB PO SCH (08:30)
[2020-11-29] MEDS: PANTOPRAZOLE 40 MG TABLET PO SCH (08:30)
[2020-11-29] MEDS: predniSONE 20 MG TAB PO SCH (08:30)
[2020-11-29] MEDS: methylPREDNISolone SOD SUCCI 125 MG/2 ML VIAL IV SCH ×2 (08:30→20:57)
[2020-11-29] MEDS: atenoloL 25 MG TAB PO SCH (08:30)
--- NOTE | 2020-11-29 10:22 | P.PN ---
Subjective Progress Note Date: 11/29/202020, the patient is being seen for a follow-up. She was readmitted yesterday for a right lung pneumonia and COPD exacerbation. He was also dehydrated and hypotensive and responded nicely to IV fluids. He also responded to antibiotics and steroids. Overnight, the patient spent on a BiPAP at a pressure of 10/5 with an FiO2 of 35% and currently is on oxygen at 2 L per minute nasal cannula. His white cell count is down to 11.9. Hemoglobin is at 8.3 which is stable. Electrolytes are within normal limits. Lactic acid level dropped down to 2.0. Chest x-ray from today showing further clearing of the right lung consolidation. He has a congested cough. Unable to bring up much sputum. He was able to produce some and we were sending it for cultures. He was encouraged to use incentive spirometer. His oral intake is quite diminished and he is going to be provided some diet. IV fluids are in the form of 0.9 at the rate of 1 30 mL an hour. He is weak. He is awake and alert. Following commands and communicating without any major issues. No focal neurological deficits. 11/29/2020, the patient is resting comfortably on 8 L of oxygen by nasal cannula. He has no complaints. Overnight he uses the BiPAP. He is also on IV fluids running at 130 mL an hour. He is afebrile. Pulse ox is around 90%. White cell count from yesterday was down to 11.9 and all of labs are still pending from today. Sputum cultures still pending. Blood cultures been negative. He remains on steroids. He remains on bronchodilators. He remains on Zosyn. He remains on Xarelto 50 mg by mouth twice a day. Oral intake is quite diminished. Using incentive spirometer. Objective - Vital Signs Vital signs: Vital Signs Temp 97.4 F L 11/29/20 08:32 Pulse 75 11/29/20 08:32 Resp 34 H 11/29/20 08:32 BP 144/82 11/29/20 08:32 Pulse Ox 90 L 11/29/20 08:32 Intake & Output 11/28/20 11/29/20 11/29/20 18:59 06:59 18:59 Intake Total 1160 Output Total 310 300 Balance 850 -300 Weight 64.5 kg 69 kg Intake: IV 910 Sodium Chloride 0.9% 1, 910 000 ml @ 130 mls/hr IV . Q7H42M [facility] Rx#:[id number] Oral 250 Output: Urine 310 300 Other: Voiding Method External Catheter External Catheter External Catheter # Voids 1 - Exam GENERAL EXAM: Alert, very pleasant, 75-year-old white male, on 8 L of oxygen with pulse ox between 98%, moderately dyspneic with conversation, and even trying to eat patient seems to be short of breath, sounds congested comfortable in no apparent distress. The patient has extensive cachexia with a BMI of 19 HEAD: Normocephalic/atraumatic. EYES: Normal reaction of pupils, equal size. Conjunctiva pink, sclera white. NOSE: Clear with pink turbinates. THROAT: No erythema or exudates. NECK: No masses, no JVD, no thyroid enlargement, no adenopathy. CHEST: No chest wall deformity. Symmetrical expansion. LUNGS: Equal air entry with bibasilar crackles, congested cough, CVS: Regular rate and rhythm, normal S1 and S2, no gallops, no murmurs, no rubs ABDOMEN: Soft, nontender. No hepatosplenomegaly, normal bowel sounds, no guarding or rigidity. EXTREMITIES: No clubbing, generally swollen no cyanosis, 2+ pulses and upper and lower extremities. MUSCULOSKELETAL: Muscle strength and tone normal. SPINE: No scoliosis or deformity SKIN: No rashes CENTRAL NERVOUS SYSTEM: Alert and oriented -3. No focal deficits, tone is normal in all 4 extremities. PSYCHIATRIC: Alert and oriented -3. Appropriate affect. Intact judgment and insight. - Labs CBC & Chem 7: 11/28/20 04:51 11/28/20 04:51 Labs: Abnormal Lab Results - Last 24 Hours (Table) 11/27/20 11/28/20 11/28/20 Range/Units 12:32 10:51 17:08 POC Glucose (mg/dL) 193 H 189 H (75-99) mg/dL Procalcitonin 0.19 H (0.02-0.09) ng/mL 11/28/20 11/29/20 Range/Units 20:15 06:04 POC Glucose (mg/dL) 121 H 109 H (75-99) mg/dL Procalcitonin (0.02-0.09) ng/mL Microbiology - Last 24 Hours (Table) 11/27/20 14:00 Blood Culture - Preliminary Blood No Growth after 24 hours 11/27/20 13:50 Blood Culture - Preliminary Blood No Growth after 24 hours 11/27/20 17:19 Gram Stain - Preliminary Sputum Sputum Culture - Preliminary Assessment and Plan Plan: 1. Acute on chronic hypoxic respiratory failure secondary to right lower lobe pneumonia With ongoing right lung consolidation, residual of a previous right lo wer lobe pneumonia was thought to be related to a streptococcal nonhemolytic out for pneumonia. Patient presented worsening shortness of breath, dehydration, hypotension, leukocytosis, consider underlying sepsis. The patient responsed to IV fluids and the patient has not required pressors yet. Clinically improved and the patient is currently off of the intensive care unit. The patient IV fluid will be cut down. Cultures are negative and the chest x- ray was improving. Follow-up labs are pending from today. Currently on 8 L of oxygen by nasal cannula. Currently on Zosyn. Currently on IV Solu-Medrol. 2. History of stage IV COPD with recent FEV1 of 22% of predicted on home oxygen 2 L/m, maintained on a combination of Stiolto, Breo Ellipta, prednisone and 02 at 2-3 liters/min, outpatient basis. He is cachectic and extremely debilitated and has a very poor baseline performance and functional status 3. Bilateral lower extremity DVT , maintained on Xarelto 4. moderate protein calorie malnutrition, BMI 19 5. CAD with previous stenting 6. Hypertension 7. Hyperlipidemia 8. 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 History of basal cell cancer with multiple lesions removed from his back and arms 10. Osteoporosis and chronic compression fracture of the lumbosacral spine 11. Multiple pneumonias, most recent involving the right lower lobe 12 leukocytosis improved compared to the last hospitalization, improving 13 Lactic acidosis, mild, improving Plan Titrate FiO2 to maintain a saturation above 90%. Currently is on 8 L of oxygen by nasal cannula. Utilizing BiPAP overnight DuoNeb nebulized treatments around the clock 4 times a day SoluMedrol 60 every 6 hours Zithromax and Zosyn Awaiting the results of the sputum Gram stain and culture Obtain blood cultures are negative for now Check pro calcitonin level is 0.19 IV fluids @ 40 mL an hour and IV fluids will be cut down and the patient will be encouraged to increase oral intake Monitored hemodynamics Mucinex DM for cough and congestion Xarelto regarding LE DVT , bilateral COVID 19 testing was negative Aggressive pulmonary toileting.
[2020-11-29 11:51] LABS: Glucose,Whole Blood 114 mg/dL (75-99)
[2020-11-29] MEDS: guaiFENesin-DM 600/30MG 1 EACH TAB.ER.12H PO SCH ×2 (12:15→21:47)
--- NOTE | 2020-11-29 13:27 | P.PN ---
Subjective Progress Note Date: 11/29/20 Principal diagnosis: Readmission on 11/28/2020 for right lung pneumonia COPD exacerbation, currently resting comfortably on 8 L nasal cannula of oxygen. No complaints, BiPAP at n ight, IV fluids 130 an hour patient is afebrile pulse ox is 90% white cell count was down to 11.9 labs and sputum cultures pending Currently O2 dependent steroid-dependent appears to be BiPAP dependent currently on bronchodilators and steroids Zosyn Muñoz by mouth 2 mg twice daily oral intake diminished using incentive spirometer Objective - Vital Signs Vital signs: Vital Signs Temp 97.5 F L 11/29/20 12:13 Pulse 72 11/29/20 12:13 Resp 30 H 11/29/20 12:13 BP 119/80 11/29/20 12:13 Pulse Ox 90 L 11/29/20 12:13 Intake & Output 11/28/20 11/29/20 11/29/20 18:59 06:59 18:59 Intake Total 1160 240 Output Total 310 300 Balance 850 -300 240 Weight 64.5 kg 69 kg Intake: IV 910 Sodium Chloride 0.9% 1, 910 000 ml @ 130 mls/hr IV . Q7H42M [facility] Rx#:[id number] Oral 250 240 Output: Urine 310 300 Other: Voiding Method External Catheter External Catheter External Catheter # Voids 1 - Exam General: [Patient awake, alert and oriented times 3. Patient in no acute distress.] Cachectic HEENT: [PERRL. EOMI. No pharyngeal erythema or exudate.] Neck: [No adenopathy.] Cardiac: [Heart regular in rate and rhythm. No S3. No S4. No clicks, rubs. No murmur.] Lungs: Diminished bilaterally Abdomen: [No mass. No organomegaly. Bowel sounds presnt and normoactive in all 4 quadrants.] Extremes: [No edema no cyanosis no claudication normal pulses] : Male genitalia Musculoskeletal: [No joint erythema, edema or tenderness.] Skin: [No rash.] Neurologic: [No lateralizing deficits. CN II - XII grossly intact.] Lymphatic: [No adenopathy.] - Labs CBC & Chem 7: 11/28/20 04:51 11/28/20 04:51 Labs: Abnormal Lab Results - Last 24 Hours (Table) 11/28/20 11/28/20 11/29/20 Range/Units 17:08 20:15 06:04 POC Glucose (mg/dL) 189 H 121 H 109 H (75-99) mg/dL 11/29/20 Range/Units 11:50 POC Glucose (mg/dL) 114 H (75-99) mg/dL Microbiology - Last 24 Hours (Table) 11/27/20 17:19 Gram Stain - Final Sputum Sputum Culture - Final 11/27/20 14:00 Blood Culture - Preliminary Blood No Growth after 24 hours 11/27/20 13:50 Blood Culture - Preliminary Blood No Growth after 24 hours Assessment and Plan (1) Sepsis due to pneumonia Current Visit: Yes Status: Acute Code(s): J18.9 - PNEUMONIA, UNSPECIFIED ORGANISM; A41.9 - SEPSIS, UNSPECIFIED ORGANISM SNOMED Code(s): 95471623 (2) Abnormal TSH Current Visit: No Status: Acute Code(s): R79.89 - OTHER SPECIFIED ABNORMAL FINDINGS OF BLOOD CHEMISTRY SNOMED Code(s): 460110056 (3) Acute exacerbation of chronic obstructive airways disease Current Visit: No Status: Acute Code(s): J44.1 - CHRONIC OBSTRUCTIVE PULMONARY DISEASE W (ACUTE) EXACERBATION SNOMED Code(s): 941644911 (4) Atrial fibrillation Current Visit: No Status: Acute Code(s): I48.91 - UNSPECIFIED ATRIAL FIBRILLATION SNOMED Code(s): 08653252 (5) Chest pain Current Visit: No Status: Acute Code(s): R07.9 - CHEST PAIN, UNSPECIFIED SNOMED Code(s): 05696403 (6) Community acquired pneumonia Current Visit: No Status: Acute Code(s): J18.9 - PNEUMONIA, UNSPECIFIED ORGANISM SNOMED Code(s): 552607917 (7) Coronary artery disease Current Visit: No Status: Acute Code(s): I25.10 - ATHSCL HEART DISEASE OF [place] CORONARY ARTERY W/O ANG PCTRS SNOMED Code(s): 12799681 (8) DVT, bilateral lower limbs Current Visit: No Status: Acute Code(s): I82.403 - ACUTE EMBOLISM AND THOMBOS UNSP DEEP VEINS OF LOW EXTRM, BI SNOMED Code(s): 808819194 (9) Difficulty swallowing Current Visit: No Status: Acute Code(s): R13.10 - DYSPHAGIA, UNSPECIFIED SNOMED Code(s): 97999016 Plan: Acute on chronic hypoxic respiratory failure secondary to right lower lobe pneumonia with ongoing lung consolidation residual for previous right lower lobe pneumonia thought to be related to streptococcal Patient currently on Zosyn and IV Solu-Medrol Currently on BiPAP at night 8 L O2 by nasal cannula History of stage IV COPD FEV1 of 22% predicted on home O2 Patient cachectic debilitated Malnutrition BMI 19 Coronary artery disease with stenting in the past Hypertension Hyperlipidemia Thoracic aortic aneurysm type II in addition to CERT segment dilation of left common iliac History of basal cell skin cancer multiple lesions removed from back and arms Osteoporosis compression fracture of lumbar spine Multiple pneumonias leukocytosis improving Lactic acidosis mild and improving Plan Titrate FiO2 to maintain sats above 90 Continue BiPAP at night Updraft treatments [id number] Solu-Medrol every 6 hours Zithromax 07 Sputum cultures pending Gram stain pending Prognosis guarded Time with Patient: Greater than 30
[2020-11-29 16:51] LABS: Glucose,Whole Blood 141 mg/dL (75-99)
[2020-11-29 20:34] LABS: Glucose,Whole Blood 154 mg/dL (75-99)
[2020-11-29] MEDS: LACTOBACILLUS ACIDOPH & BULGAR 1 EACH PACKET PO SCH (20:57)
[2020-11-29] MEDS: ASPIRIN 81 MG PO SCH (20:57)
[2020-11-30] MEDS: PIPERACILLIN-TAZOBACTAM 3.375 GM in SODIUM CHLORIDE 0.9% 100 ML IVPB SCH ×3 (00:35→16:15)
[2020-11-30 06:28] LABS: Glucose,Whole Blood 99 mg/dL (75-99)
[2020-11-30] MEDS: INSULIN ASPART (NovoLOG) 100 UNIT/ML VIAL SQ SCH ×4 (06:29→19:52)
[2020-11-30] MEDS: RIVAROXABAN 15 MG TAB PO SCH ×2 (06:43→16:19)
[2020-11-30] MEDS: SYMBICORT 160-4.5 MCG INHALER INHALATION SCH ×2 (07:04→19:18)
[2020-11-30] MEDS: ALBUTEROL HFA INHALER INHALATION SCH ×3 (07:04→19:18)
[2020-11-30] MEDS: TIOTROPIUM 2.5 MCG INHALER INHALATION SCH (07:05)
--- NOTE | 2020-11-30 08:06 | XR ---
EXAMINATION TYPE: XR chest 1V portable DATE OF EXAM: 11/30/2020 COMPARISON: 11/28/2020 INDICATION: Pneumonia TECHNIQUE: Single frontal view of the chest is obtained. FINDINGS: The heart size is normal. The pulmonary vasculature is normal. There is a consolidation at the right lung base which is nonspecific. Small left pleural effusion is present. IMPRESSION: 1. Increasing consolidation right lower lobe. 2. Small left pleural effusion. 3. Continued follow-up is recommended.
[2020-11-30] MEDS: methylPREDNISolone SOD SUCCI 125 MG/2 ML VIAL IV SCH ×2 (08:43→20:34)
[2020-11-30] MEDS: PANTOPRAZOLE 40 MG TABLET PO SCH (08:43)
[2020-11-30] MEDS: MULTIVITAMINS, THERA 1 EACH TAB PO SCH (08:43)
[2020-11-30] MEDS: guaiFENesin-DM 600/30MG 1 EACH TAB.ER.12H PO SCH ×2 (08:43→20:35)
[2020-11-30] MEDS: AZITHROMYCIN 500 MG TAB PO SCH (08:43)
[2020-11-30] MEDS ORDERED: FUROSEMIDE 10 MG/ML 4 ML VIAL IV STA (09:43)
[2020-11-30] MEDS ORDERED: VANCOMYCIN IV PER PHARMACY 1 EACH MISC MISCELLANE PRN (09:44)
--- NOTE | 2020-11-30 09:47 | P.PN ---
Subjective Progress Note Date: 11/30/202020, the patient is being seen for a follow-up. She was readmitted yesterday for a right lung pneumonia and COPD exacerbation. He was also dehydrated and hypotensive and responded nicely to IV fluids. He also responded to antibiotics and steroids. Overnight, the patient spent on a BiPAP at a pressure of 10/5 with an FiO2 of 35% and currently is on oxygen at 2 L per minute nasal cannula. His white cell count is down to 11.9. Hemoglobin is at 8.3 which is stable. Electrolytes are within normal limits. Lactic acid level dropped down to 2.0. Chest x-ray from today showing further clearing of the right lung consolidation. He has a congested cough. Unable to bring up much sputum. He was able to produce some and we were sending it for cultures. He was encouraged to use incentive spirometer. His oral intake is quite diminished and he is going to be provided some diet. IV fluids are in the form of 0.9 at the rate of 1 30 mL an hour. He is weak. He is awake and alert. Following commands and communicating without any major issues. No focal neurological deficits. 11/29/2020, the patient is resting comfortably on 8 L of oxygen by nasal cannula. He has no complaints. Overnight he uses the BiPAP. He is also on IV fluids running at 130 mL an hour. He is afebrile. Pulse ox is around 90%. White cell count from yesterday was down to 11.9 and all of labs are still pending from today. Sputum cultures still pending. Blood cultures been negative. He remains on steroids. He remains on bronchodilators. He remains on Zosyn. He remains on Xarelto 50 mg by mouth twice a day. Oral intake is quite diminished. Using incentive spirometer. 11/30/2020, the patient is being seen in follow-up. Patient was admitted intensive care unit for right lung pneumonia, sepsis, COPD exacerbation. As stated earlier, he has advanced COPD and chronic hypoxic respiratory failure. On today's evaluation, he is still requiring oxygen somewhere between 8 and a liters high flow. His pulse ox currently is around 91%. Overnight, he is utilizing the BiPAP. He feels well despite his high oxygen requirements. He is struggling more with his breathing on today's evaluation. He has a congested cough. He is trying to bring up some sputum out. A repeat chest x-ray was done today and compared to the earlier chest x-rays, there is still a right lower lobe consolidation with some interval worsening. There may be also some volume loss in the right lower lobe. Afebrile. His white cell count from today is still pending. Note that his 's a with essentially dropping. Nevertheless, he has worsening in the right lower lobe consolidation. Antibiotic coverage remains a combination of Zosyn and Zithromax. Morbid concerned about his progression, the one that was seen on today's chest x-ray. He is obviously more struggling with his breathing. He has a congested cough, unable to bring up much sputum. Unable to utilize the incentive spirometer effectively. Note that he has end-stage lung disease and COPD as stated earlier. Objective - Vital Signs Vital signs: Vital Signs Temp 97.6 F 11/30/20 08:41 Pulse 78 11/30/20 08:41 Resp 28 H 11/30/20 08:41 BP 122/59 11/30/20 08:41 Pulse Ox 91 L 11/30/20 08:41 Intake & Output 11/29/20 11/30/20 11/30/20 18:59 06:59 18:59 Intake Total 720 100 Output Total 200 Balance 520 100 Weight 71 kg Intake: Oral 720 100 Output: Urine 200 Other: Voiding Method Urinal Urinal Urinal # Voids 1 # Bowel Movements 1 0 - Exam GENERAL EXAM: Alert, very pleasant, 75-year-old white male, on 10 L of oxygen with pulse ox between 98%, moderately dyspneic with conversation, and even trying to eat patient seems to be short of breath, sounds congested comfortable in no apparent distress. The patient has extensive cachexia with a BMI of 19, compared to yesterday, I would say his breathing is slightly worse and his oxygen requirements have also,. HEAD: Normocephalic/atraumatic. EYES: Normal reaction of pupils, equal size. Conjunctiva pink, sclera white. NOSE: Clear with pink turbinates. THROAT: No erythema or exudates. NECK: No masses, no JVD, no thyroid enlargement, no adenopathy. CHEST: No chest wall deformity. Symmetrical expansion. LUNGS: Equal air entry with bibasilar crackles, congested cough,Marked breath sounds diminishment in both lung souza CVS: Regular rate and rhythm, normal S1 and S2, no gallops, no murmurs, no rubs ABDOMEN: Soft, nontender. No hepatosplenomegaly, normal bowel sounds, no guarding or rigidity. EXTREMITIES: No clubbing, generally swollen no cyanosis, 2+ pulses and upper and lower extremities. MUSCULOSKELETAL: Muscle strength and tone normal. SPINE: No scoliosis or deformity SKIN: No rashes CENTRAL NERVOUS SYSTEM: Alert and oriented -3. No focal deficits, tone is normal in all 4 extremities. PSYCHIATRIC: Alert and oriented -3. Appropriate affect. Intact judgment and insight. - Labs CBC & Chem 7: 11/28/20 04:51 11/28/20 04:51 Labs: Abnormal Lab Results - Last 24 Hours (Table) 11/29/20 11/29/20 11/29/20 Range/Units 11:50 16:50 20:31 POC Glucose (mg/dL) 114 H 141 H 154 H (75-99) mg/dL Microbiology - Last 24 Hours (Table) 11/27/20 14:00 Blood Culture - Preliminary Blood No Growth after 48 hours 11/27/20 13:50 Blood Culture - Preliminary Blood No Growth after 48 hours 11/27/20 17:19 Gram Stain - Final Sputum Sputum Culture - Final Assessment and Plan Plan: 1. Acute on chronic hypoxic respiratory failure secondary to right lower lobe pneumonia With ongoing right lung consolidation, residual of a previous right lower lobe pneumonia was thought to be related to a streptococcal nonhemolytic out for pneumonia. Patient presented worsening shortness of breath, dehydration, hypotension, leukocytosis, consider underlying sepsis. The patient responsed to IV fluids and the patient has not required pressors yet. Clinically improved and the patient is currently off of the intensive care unit. The patient was on 8 L of oxygen yesterday and he was in the medical floor and on today's evaluation, he is slightly worse and the patient is having more difficulty in breathing. His oxygen requirements have come up to 10 L high flow nasal cannula and the chest x-ray showing worsening of the right lower lobe consolidation. He has a congested cough. Unable to bring up much sputum. Cultures of been negative thus far. 2. History of stage IV COPD with recent FEV1 of 22% of predicted on home oxygen 2 L/m, maintained on a combination of Stiolto, Breo Ellipta, prednisone and 02 at 2-3 liters/min, outpatient basis. He is cachectic and extremely debilitated and has a very poor baseline performance and functional status 3. Bilateral lower extremity DVT , maintained on Xarelto 4. moderate protein calorie malnutrition, BMI 19 5. CAD with previous stenting 6. Hypertension 7. Hyperlipidemia 8. 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 History of basal cell cancer with multiple lesions removed from his back and arms 10. Osteoporosis and chronic compression fracture of the lumbosacral spine 11. Multiple pneumonias, most recent involving the right lower lobe 12 leukocytosis improved compared to the last hospitalization, improving 13 Lactic acidosis, mild, improving Plan Titrate FiO2 to maintain a saturation above 90%. Currently is on 10 L of oxygen by nasal cannula. Utilizing BiPAP overnight DuoNeb nebulized treatments around the clock 4 times a day SoluMedrol 60 every 6 hours His continue the Zithromax. Keep Zosyn and add vancomycin Give the patient dose of Lasix 40 mg IV push IV fluids to KVO Chest PT and incentive spirometer Repeat the sputum Gram stain and culture Obtain a follow-up chest x-ray tomorrow Repeat pro calcitonin level IV fluids @ 10mL an hour Monitored hemodynamics Mucinex DM for cough and congestion Xarelto regarding LE DVT , bilateral COVID 19 testing was negative Aggressive pulmonary toileting. High-risk for respiratory failure special with her advanced lung disease. We'll monitored very closely. We'll given a dose of Lasix. We'll give him a breathing treatment for now. Monitor his oxygenation. Utilizes BiPAP. Broaden antibiotic coverage. We'll continue to follow.
[2020-11-30] MEDS: predniSONE 20 MG TAB PO SCH (09:48)
[2020-11-30] MEDS: VANCOMYCIN 1,250 MG in SODIUM CHLORIDE 0.9% 250 ML IVPB SCH ×2 (10:16→21:41)
[2020-11-30 11:32] LABS: ALT 53 U/L (4-49); AST 42 U/L (17-59); African American GFR (CKD) >90 (>60 ml/min/1.73 sqM); Albumin 2.6 g/dL (3.5-5.0); Alkaline Phosphatase 138 U/L (38-126); Anion Gap 4 mmol/L; Blood Urea Nitrogen 28 mg/dL (9-20); Calcium 8.2 mg/dL (8.4-10.2); Carbon Dioxide 28 mmol/L (22-30); Chloride 106 mmol/L (98-107); Glucose 147 mg/dL (74-99); Non-African American GFR(CKD) >90 (>60 ml/min/1.73 sqM); Potassium 3.7 mmol/L (3.5-5.1); Sodium 138 mmol/L (137-145); Total Bilirubin 0.5 mg/dL (0.2-1.3); Total Protein 5.3 g/dL (6.3-8.2)
[2020-11-30 11:36] LABS: Basophils # (A) 0.1 k/uL (0-0.2); Basophils % (A) 0 %; Eosinophils % (A) 0 %; HCT 25.3 % (39.0-53.0); HGB 8.1 gm/dL (13.0-17.5); Hypochromasia Moderate; Lymphocytes # (A) 0.4 k/uL (1.0-4.8); Lymphocytes % (A) 3 %; MCH 32.6 pg (25.0-35.0); MCHC 32.1 g/dL (31.0-37.0); MCV 101.7 fL (80.0-100.0); Macrocytosis Slight; Mean Platelet Volume 8.2; Monocytes # (A) 0.5 k/uL (0-1.0); Monocytes % (A) 3 %; Neutrophils % (A) 93 %; Platelet Count 170 k/uL (150-450); RBC 2.49 m/uL (4.30-5.90); RDW 15.7 % (11.5-15.5); WBC 15.2 k/uL (3.8-10.6)
[2020-11-30 11:49] LABS: Glucose,Whole Blood 134 mg/dL (75-99)
--- NOTE | 2020-11-30 13:32 | P.PN ---
Subjective Progress Note Date: 11/30/20 Principal diagnosis: Readmission on 11/28/2020 for right lung pneumonia COPD exacerbation, currently resting comfortably on 8 L nasal cannula of oxygen. No complaints, BiPAP at n ight, IV fluids 130 an hour patient is afebrile pulse ox is 90% white cell count was down to 11.9 labs and sputum cultures pending Currently O2 dependent steroid-dependent appears to be BiPAP dependent currently on bronchodilators and steroids, iv Zosyn, Zithromax by mouth 2 mg twice daily oral intake diminished using incentive spirometer limitedly and ineffectively Today's chest x-ray appears worse, increased consolidation in the right lower lobe, patient states he is feeling fine however he appears to be experiencing slightly increased difficulty moving air, this gentleman is definitely at risk acute respiratory failure Objective - Vital Signs Vital signs: Vital Signs Temp 97.8 F 11/30/20 12:05 Pulse 78 11/30/20 13:04 Resp 24 11/30/20 13:04 BP 110/62 11/30/20 12:05 Pulse Ox 95 11/30/20 12:05 Intake & Output 11/29/20 11/30/20 11/30/20 18:59 06:59 18:59 Intake Total 720 100 Output Total 586 234 6627 Balance 520 -250 -950 Weight 71 kg Intake: Oral 720 100 Output: Urine 513 353 8450 Other: Voiding Method Urinal Urinal Urinal # Voids 1 # Bowel Movements 1 0 - Exam General: [Patient awake, alert and oriented times 3. Patient in no acute distress.] Cachectic HEENT: [PERRL. EOMI. No pharyngeal erythema or exudate.] Neck: [No adenopathy.] Cardiac: [Heart regular in rate and rhythm. No S3. No S4. No clicks, rubs. No murmur.] Lungs: Diminished bilaterally Abdomen: [No mass. No organomegaly. Bowel sounds presnt and normoactive in all 4 quadrants.] Extremes: [No edema no cyanosis no claudication normal pulses] : Male genitalia Musculoskeletal: [No joint erythema, edema or tenderness.] Skin: [No rash.] Neurologic: [No lateralizing deficits. CN II - XII grossly intact.] Lymphatic: [No adenopathy.] - Labs CBC & Chem 7: 11/30/20 10:43 11/30/20 10:43 Labs: Abnormal Lab Results - Last 24 Hours (Table) 11/29/20 11/29/20 11/30/20 Range/Units 16:50 20:31 10:43 WBC 15.2 H (3.8-10.6) k/uL RBC 2.49 L (4.30-5.90) m/uL Hgb 8.1 L (13.0-17.5) gm/dL Hct 25.3 L (39.0-53.0) % MCV 101.7 H (80.0-100.0) fL RDW 15.7 H (11.5-15.5) % BUN (9-20) mg/dL Creatinine (0.66-1.25) mg/dL Glucose (74-99) mg/dL POC Glucose (mg/dL) 141 H 154 H (75-99) mg/dL Calcium (8.4-10.2) mg/dL ALT (4-49) U/L Alkaline Phosphatase (38-126) U/L Total Protein (6.3-8.2) g/dL Albumin (3.5-5.0) g/dL 11/30/20 11/30/20 Range/Units 10:43 11:47 WBC (3.8-10.6) k/uL RBC (4.30-5.90) m/uL Hgb (13.0-17.5) gm/dL Hct (39.0-53.0) % MCV (80.0-100.0) fL RDW (11.5-15.5) % BUN 28 H (9-20) mg/dL Creatinine 0.53 L (0.66-1.25) mg/dL Glucose 147 H (74-99) mg/dL POC Glucose (mg/dL) 134 H (75-99) mg/dL Calcium 8.2 L (8.4-10.2) mg/dL ALT 53 H (4-49) U/L Alkaline Phosphatase 138 H (38-126) U/L Total Protein 5.3 L (6.3-8.2) g/dL Albumin 2.6 L (3.5-5.0) g/dL Microbiology - Last 24 Hours (Table) 11/27/20 14:00 Blood Culture - Preliminary Blood No Growth after 48 hours 11/27/20 13:50 Blood Culture - Preliminary Blood No Growth after 48 hours 11/27/20 17:19 Gram Stain - Final Sputum Sputum Culture - Final Assessment and Plan (1) Sepsis due to pneumonia Current Visit: Yes Status: Acute Code(s): J18.9 - PNEUMONIA, UNSPECIFIED ORGANISM; A41.9 - SEPSIS, UNSPECIFIED ORGANISM SNOMED Code(s): 34096451 (2) Abnormal TSH Current Visit: No Status: Acute Code(s): R79.89 - OTHER SPECIFIED ABNORMAL FINDINGS OF BLOOD CHEMISTRY SNOMED Code(s): 888490528 (3) Acute exacerbation of chronic obstructive airways disease Current Visit: No Status: Acute Code(s): J44.1 - CHRONIC OBSTRUCTIVE PULMONARY DISEASE W (ACUTE) EXACERBATION SNOMED Code(s): 223510314 (4) Atrial fibrillation Current Visit: No Status: Acute Code(s): I48.91 - UNSPECIFIED ATRIAL FIBRILLATION SNOMED Code(s): 98957232 (5) Chest pain Current Visit: No Status: Acute Code(s): R07.9 - CHEST PAIN, UNSPECIFIED SNOMED Code(s): 38079968 (6) Community acquired pneumonia Current Visit: No Status: Acute Code(s): J18.9 - PNEUMONIA, UNSPECIFIED ORGANISM SNOMED Code(s): 738152046 (7) Coronary artery disease Current Visit: No Status: Acute Code(s): I25.10 - ATHSCL HEART DISEASE OF [place] CORONARY ARTERY W/O ANG PCTRS SNOMED Code(s): 34916284 (8) DVT, bilateral lower limbs Current Visit: No Status: Acute Code(s): I82.403 - ACUTE EMBOLISM AND THOMBOS UNSP DEEP VEINS OF LOW EXTRM, BI SNOMED Code(s): 768838115 (9) Difficulty swallowing Current Visit: No Status: Acute Code(s): R13.10 - DYSPHAGIA, UNSPECIFIED SNOMED Code(s): 69367879 Plan: Acute on chronic hypoxic respiratory failure secondary to right lower lobe pneumonia with ongoing lung consolidation residual for previous right lower lobe pneumonia thought to be related to streptococcal Patient currently on Zosyn and IV Solu-Medrol Currently on BiPAP at night 8 L O2 by nasal cannula History of stage IV COPD FEV1 of 22% predicted on home O2 Patient cachectic debilitated Malnutrition BMI 19 Coronary artery disease with stenting in the past Hypertension Hyperlipidemia Thoracic aortic aneurysm type II in addition to CERT segment dilation of left common iliac History of basal cell skin cancer multiple lesions removed from back and arms Osteoporosis compression fracture of lumbar spine Multiple pneumonias leukocytosis improving Lactic acidosis mild and improving Plan Titrate FiO2 to maintain sats above 90 Continue BiPAP at night Updraft treatments [id number] Solu-Medrol every 6 hours Zithromax 07 Sputum cultures pending Gram stain pending At risk for acute respiratory failure and reintubation Patient still wishes to be full code Prognosis guarded Time with Patient: Greater than 30
[2020-11-30] MEDS: SODIUM CHLORIDE 0.9% 1,000 ML IV SCH (16:16)
[2020-11-30] MEDS: CLOTRIMAZOLE TROCHE 10 MG TROCHE MUCOUS MEM SCH ×2 (16:19→20:35)
[2020-11-30 16:41] LABS: Glucose,Whole Blood 197 mg/dL (75-99)
[2020-11-30 19:05] LABS: Glucose,Whole Blood 120 mg/dL (75-99)
[2020-11-30] MEDS: LACTOBACILLUS ACIDOPH & BULGAR 1 EACH PACKET PO SCH (20:35)
[2020-11-30] MEDS: ASPIRIN 81 MG PO SCH (20:35)
[2020-12-01] MEDS: CLOTRIMAZOLE TROCHE 10 MG TROCHE MUCOUS MEM SCH ×5 (00:23→20:39)
[2020-12-01] MEDS: PIPERACILLIN-TAZOBACTAM 3.375 GM in SODIUM CHLORIDE 0.9% 100 ML IVPB SCH ×3 (00:23→17:13)
[2020-12-01 06:12] LABS: Glucose,Whole Blood 110 mg/dL (75-99)
[2020-12-01] MEDS: INSULIN ASPART (NovoLOG) 100 UNIT/ML VIAL SQ SCH ×4 (06:59→20:39)
[2020-12-01] MEDS: RIVAROXABAN 15 MG TAB PO SCH ×2 (07:20→17:13)
[2020-12-01] MEDS: SYMBICORT 160-4.5 MCG INHALER INHALATION SCH ×3 (07:56→20:05)
[2020-12-01] MEDS: ALBUTEROL HFA INHALER INHALATION SCH ×4 (07:56→20:05)
[2020-12-01] MEDS: TIOTROPIUM 2.5 MCG INHALER INHALATION SCH (07:57)
[2020-12-01 08:17] LABS: Anisocytosis Slight; Basophils % (A) 0 %; Eosinophils % (A) 0 %; HCT 23.2 % (39.0-53.0); HGB 7.2 gm/dL (13.0-17.5); Hypochromasia Moderate; Lymphocytes # (A) 0.7 k/uL (1.0-4.8); Lymphocytes % (A) 7 %; MCH 31.5 pg (25.0-35.0); MCV 101.4 fL (80.0-100.0); Macrocytosis Slight; Mean Platelet Volume 8.2; Monocytes # (A) 0.4 k/uL (0-1.0); Monocytes % (A) 4 %; Neutrophils % (A) 88 %; Platelet Count 175 k/uL (150-450); RBC 2.29 m/uL (4.30-5.90); RDW 16.3 % (11.5-15.5); WBC 10.2 k/uL (3.8-10.6)
--- NOTE | 2020-12-01 08:32 | XR ---
EXAMINATION TYPE: XR chest 1V portable DATE OF EXAM: 12/01/2020 COMPARISON: Chest x-ray 11/30/2020 HISTORY: Pneumonia TECHNIQUE: Single frontal view of the chest is obtained. FINDINGS: Bilateral airspace disease is again seen. No evident pneumothorax or sizable effusion. Car diac mediastinal silhouette shows a similar appearance. Aorta is dense. There are underlying emphysem atous changes. IMPRESSION: Findings are similar to prior exam. Correlate for pneumonia, underlying emphysema.
[2020-12-01 08:33] LABS: ALT 48 U/L (4-49); AST 40 U/L (17-59); African American GFR (CKD) >90 (>60 ml/min/1.73 sqM); Albumin 2.5 g/dL (3.5-5.0); Alkaline Phosphatase 126 U/L (38-126); Anion Gap 1 mmol/L; Blood Urea Nitrogen 25 mg/dL (9-20); Carbon Dioxide 36 mmol/L (22-30); Chloride 102 mmol/L (98-107); Glucose 100 mg/dL (74-99); Non-African American GFR(CKD) >90 (>60 ml/min/1.73 sqM); Potassium 4.3 mmol/L (3.5-5.1); Sodium 139 mmol/L (137-145); Total Bilirubin 0.5 mg/dL (0.2-1.3)
[2020-12-01] MEDS: MULTIVITAMINS, THERA 1 EACH TAB PO SCH (09:56)
[2020-12-01] MEDS: atenoloL 25 MG TAB PO SCH (09:56)
[2020-12-01] MEDS: VANCOMYCIN 1,250 MG in SODIUM CHLORIDE 0.9% 250 ML IVPB SCH ×2 (09:56→21:21)
[2020-12-01] MEDS: PANTOPRAZOLE 40 MG TABLET PO SCH (09:56)
[2020-12-01] MEDS: methylPREDNISolone SOD SUCCI 125 MG/2 ML VIAL IV SCH ×2 (09:56→20:40)
[2020-12-01] MEDS: guaiFENesin-DM 600/30MG 1 EACH TAB.ER.12H PO SCH ×2 (09:58→20:39)
[2020-12-01 12:09] LABS: Glucose,Whole Blood 163 mg/dL (75-99)
--- NOTE | 2020-12-01 13:22 | P.CRDCN ---
History of Present Illness History of present illness: HISTORY OF PRESENTING ILLNESS This is a pleasant 75-year-old male past medical history significant for COPD, coronary artery disease status post PCI of the mid RCA in 2008, history of SVT, DVT maintained on Xarelto and recent diagnosis of pneumonia. He follows in the office with Dr. Scales. We have been asked to see in consultation for tachycardia. He is seen and examined resting comfortably sitting up in bed on high flow nasal cannula. The patient is somewhat tachypneic however he states his breathing has improved since yesterday. He is currently being treated for pneumonia on IV antibiotics. Also has positive blood cultures. Telemetry tracings reviewed, he is having short bursts of paroxysmal atrial fibrillation with aberrancy. Rates are controlled. He denies symptoms of chest pain or palpitations. He was evaluated in October by Dr. Sofia secondary to elevated troponin that were related to infection not acute coronary syndrome. He recently had cardiac catheterization in August 2019 revealing calcified left main free of significant stenosis, calcified LAD with mild to moderate atherosclerotic plaque in the midportion, circumflex is calcified with no hemodynamically significant plaque, RCA is heavily calcified with moderate plaque in the midportion at worst 40%. Medical management was recommended at that time. DIAGNOSTICS EKG reveals mechanism with left anterior fascicular block and poor R-wave progression. Chest xray bilateral airspace disease underlying of the somatic changes. Laboratory reviewed, WBC 10.2, hemoglobin 7.2, platelets 175, sodium 139, potassium 4.3, creatinine 0.5, magnesium 2.0, troponin negative 1, TSH 1.88 and pro-calcitonin 0.15. Current cardiac medications include Toprol 50 mg twice a day, aspirin 81 mg daily, Lasix 20 mg daily and atenolol 25 mg every other day. REVIEW OF SYSTEMS At the time of my exam: CONSTITUTIONAL: Denies fever or chills. CARDIOVASCULAR: Complains of shortness of breath. Denies chest pain, orthopnea, PND or palpitations. RESPIRATORY: Denies cough. GASTROINTESTINAL: Denies abdominal pain, diarrhea, constipation, nausea or vomiting. MUSCULOSKELETAL: Denies myalgias. NEUROLOGIC: Denies numbness, tingling, headacbe or weakness. ENDOCRINE: Denies fatigue, weight change, polydipsia or polyurina. GENITOURINARY: Denies burning, hematuria or urgency with micturation. HEMATOLOGIC: Denies history of anemia or bleeding. PHYSICAL EXAMINATION Blood pressure 107/59 heart rate 69 afebrile and maintaining oxygen saturation on nasal cannula. CONSTITUTIONAL: Mild tachypnea. Generalized pallor. HEENT: Head is normocephalic. Pupils are equal, round. Sclerae anicteric. Mucous membranes of the mouth are moist. No JVD. No carotid bruit. CHEST EXAMINATION: Expiratory wheezes, scattered rhonchi, no rales. Mild lower mid-sternal chest wall tenderness is noted on palpation and with deep breathing. HEART EXAMINATION: Irregular rate and rhythm. S1, S2 heard. No murmurs, gallops or rub. ABDOMEN: Soft, nontender. Positive bowel sounds. EXTREMITIES: 2+ peripheral pulses, trace lower extremity edema and no calf tenderness. NEUROLOGIC EXAMINATION: Patient is awake, alert and oriented x3. ASSESSMENT New onset paroxysmal atrial fibrillation already on anticoagulation secondary to a DVT Pneumonia COPD Bilateral lower extremity DVT maintained on Xarelto Coronary artery disease status post PCI in 2008 Hypertension Dyslipidemia PLAN Continue Xarelto. Once DVT dosing is completed he will need to be maintained on 20 mg daily. Chest atenolol to be taken every day rather than every other day. Aspirin can be discontinued as his coronary artery disease is currently stable and he requires long-term anticoagulation to decrease his risk of bleeding. No need to trend troponins. Thank you kindly for this consultation. Nurse Practitioner note has been reviewed, I agree with a documented findings and plan of care. Patient was seen and examined. 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, PT STATED HE HAS ENLARGED AORTA(PER CT SCAN -THORACIC AORTIC ANEURYSM 4.2 CM), "HOARSNESS", History of Any Multi-Drug Resistant Organisms: None Reported Past Surgical History: Adenoidectomy, Appendectomy, Heart Catheterization With Stent, Hernia Repair, Orthopedic Surgery, Tonsillectomy Additional Past Surgical History / Comment(s): LET ROTATOR CUFF REPAIR,ANAL FISTULA REPAIR, EGD/COLONOSCOPY,MULTIPLE BASAL CELL 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,AGUILAR INGUINAL HERNIA REPAIR.RIGHT SHOULDER SURGERY X2 Past Anesthesia/Blood Transfusion Reactions: No Reported Reaction Date of Last Stent Placement:: 2005 APPROX Smoking Status: Former smoker - Past Family History Father Family Medical History: Cancer Additional Family Medical History / Comment(s): TESTICULAR, BONE Mother Family Medical History: Cancer Additional Family Medical History / Comment(s): BONE Medications and Allergies Home Medications Medication Instructions Recorded Confirmed Type Aspirin EC [Ecotrin Low Dose] 81 mg PO HS 07/21/16 11/27/20 History Omeprazole 20 mg PO BID@0800,1700 06/13/19 11/27/20 History Vitamin B Complex 1 cap PO DAILY 06/13/19 11/27/20 History atenoloL [Atenolol] 25 mg PO Q48H 07/17/20 11/27/20 History Fluticasone/Vilanterol [Breo 1 puff INHALATION RT-DAILY@1700 11/10/20 11/27/20 History Ellipta 200-25 Mcg INH] Acetaminophen Tab [Tylenol] 650 mg PO Q4HR PRN tab 11/19/20 11/27/20 Rx Albuterol Inhaler [Ventolin Hfa 2 puff INHALATION RT-QID puff 11/19/20 11/27/20 Rx Inhaler] Diclofenac Sodium Gel [Voltaren 2 gm TOPICAL QID PRN tube 11/19/20 11/27/20 Rx Gel] Petrolatum, White [Aquaphor] 1 applic TOPICAL DAILY PRN applic 11/19/20 11/27/20 Rx Rivaroxaban [Xarelto] 15 mg PO BID-W/MEALS tab 11/19/20 11/27/20 Rx Tiotropium 2.5 Mcg/Puff [Spiriva 2 puff INHALATION RT-DAILY puff 11/19/20 11/27/20 Rx Respimat 2.5 Mcg] predniSONE 20 mg PO DAILY #0 11/19/20 11/27/20 Rx Albuterol Inhaler [Ventolin Hfa 2 puff INHALATION RT-Q4H PRN 11/27/20 11/27/20 History Inhaler] Furosemide [Lasix] 20 mg PO DAILY@0800 11/27/20 11/27/20 History Lactobacillus Acidophilus 1 tab PO HS 11/27/20 11/27/20 History [Acidophilus] Lactose-Reduced Food [Ensure Plus] 240 ml PO BID 11/27/20 11/27/20 History Multivits,Th W-Ca,Fe,Oth Min 1 tab PO DAILY 11/27/20 11/27/20 History [Therapeutic M] Allergies Allergy/AdvReac Type Severity Reaction Status Date / Time No Known Allergies Allergy Verified 11/27/20 13:16 Physical Exam Vitals: Vital Signs Temp Pulse Resp BP Pulse Ox 12/01/20 07:16 98.1 F 65 22 113/60 96 12/01/20 04:24 97.8 F 74 16 146/65 97 12/01/20 02:49 18 11/30/20 23:40 97.8 F 65 20 121/60 99 11/30/20 20:00 97.8 F 75 22 106/61 100 11/30/20 16:00 97.9 F 84 26 H 112/66 91 L 11/30/20 13:04 78 24 11/30/20 12:05 97.8 F 78 24 110/62 95 Intake and Output 11/30/20 12/01/20 12/01/20 22:59 06:59 14:59 Intake Total 350 180 Output Total 500 Balance 350 -500 180 Intake: Oral 350 180 Output: Urine 500 Other: Voiding Method Urinal Urinal # Bowel Movements 1 Weight 67.5 kg Results 12/01/20 07:30 12/01/20 07:30 Cardiac Enzymes 11/30/20 12/01/20 Range/Units 10:43 07:30 AST 42 40 (17-59) U/L CBC 11/30/20 12/01/20 Range/Units 10:43 07:30 WBC 15.2 H 10.2 (3.8-10.6) k/uL RBC 2.49 L 2.29 L (4.30-5.90) m/uL Hgb 8.1 L 7.2 L (13.0-17.5) gm/dL Hct 25.3 L 23.2 L (39.0-53.0) % Plt Count 170 175 (150-450) k/uL Comprehensive Metabolic Panel 11/30/20 12/01/20 Range/Units 10:43 07:30 Sodium 138 139 (137-145) mmol/L Potassium 3.7 4.3 (3.5-5.1) mmol/L Chloride 106 102 (98-107) mmol/L Carbon Dioxide 28 36 H (22-30) mmol/L BUN 28 H 25 H (9-20) mg/dL Creatinine 0.53 L 0.50 L (0.66-1.25) mg/dL Glucose 147 H 100 H (74-99) mg/dL Calcium 8.2 L 8.0 L (8.4-10.2) mg/dL AST 42 40 (17-59) U/L ALT 53 H 48 (4-49) U/L Alkaline Phosphatase 138 H 126 (38-126) U/L Total Protein 5.3 L 5.0 L (6.3-8.2) g/dL Albumin 2.6 L 2.5 L (3.5-5.0) g/dL Current Medications Generic Name Dose Route Start Last Admin Trade Name Freq PRN Reason Stop Dose Admin Acetaminophen 650 mg 11/27/20 15:14 11/28/20 20:58 Acetaminophen Tab 325 Mg Tab PO 650 mg Q4HR PRN Administration Fever and/or Mild Pain Albuterol Sulfate 2 puff 11/27/20 12:24 Albuterol Hfa Inhaler INHALATION RT-Q6H PRN Shortness Of Breath Or Wheezing Albuterol Sulfate 2 puff 11/28/20 20:00 12/01/20 07:56 Albuterol Hfa Inhaler INHALATION 2 puff RT-TID ARSH Administration Aspirin 81 mg 11/27/20 21:00 11/30/20 20:35 Aspirin 81 Mg PO 81 mg HS ARSH Administration Atenolol 25 mg 11/29/20 09:00 12/01/20 09:56 Atenolol 25 Mg Tab PO 25 mg Q48H ARSH Administration Budesonide/Formoterol Fumarate 2 puff 11/27/20 20:00 12/01/20 08:03 Symbicort 160-4.5 Mcg Inhaler INHALATION Not Given RT-BID ARSH Clotrimazole 10 mg 11/30/20 17:00 12/01/20 09:58 Clotrimazole Eduard 10 Mg Eduard MUCOUS MEM 10 mg 5XD ARSH Administration Diclofenac Sodium 2 gm 11/27/20 15:14 Diclofenac Sodium Gel 100 Gm Tube TOPICAL QID PRN Pain/Discomfort Guaifenesin/Dextromethorphan 1 each 11/27/20 21:00 12/01/20 09:58 Guaifenesin-Dm 600/30mg 1 Each Tab.Er.12h PO Not Given Q12HR ARSH Sodium Chloride 1,000 mls @ 10 mls/hr 11/27/20 14:15 11/30/20 16:16 Saline 0.9% IV 10 mls/hr .Q24H ARSH Administration Piperacillin Sod/Tazobactam 100 mls @ 25 mls/hr 11/28/20 00:00 12/01/20 07:20 Sod 3.375 gm/ Sodium Chloride IVPB 12/04/20 00:01 25 mls/hr Q8HR ARSH Administration Vancomycin HCl 1,250 mg/ 250 mls @ 125 mls/hr 11/30/20 10:00 12/01/20 09:56 Sodium Chloride IVPB 125 mls/hr Q12H ARSH Administration Insulin Aspart 0 unit 11/27/20 17:30 12/01/20 06:59 Insulin Aspart (Novolog) 100 Unit/Ml Vial SQ Not Given ACHS ARSH Protocol Lactobacillus Acidoph/Bulgaricus 1 each 11/27/20 21:00 11/30/20 20:35 Lactobacillus Acidoph & Bulgar 1 Each Packet PO 1 each HS ARSH Administration Methylprednisolone Sodium Succinate 60 mg 11/27/20 21:00 12/01/20 09:56 Methylprednisolone Sod Succi 125 Mg/2 Ml Vial IV 60 mg Q12HR ARSH Administration Miscellaneous Information 1 each 11/27/20 14:02 Pneumonia Protocol Utilized 1 Each Misc PO ONCE PRN Per Protocol Miscellaneous Information 0 each 12/02/20 09:00 Vancomycin Trough Due 1 Each Misc MISCELLANE 12/02/20 09:01 DIRECTED ONE Multivitamins 1 each 11/28/20 09:00 12/01/20 09:56 Multivitamins, Thera 1 Each Tab PO 1 each DAILY ARSH Administration Pantoprazole Sodium 40 mg 11/29/20 09:00 12/01/20 09:56 Pantoprazole 40 Mg Tablet PO 40 mg DAILY ARSH Administration Rivaroxaban 15 mg 11/27/20 17:30 12/01/20 07:20 Rivaroxaban 15 Mg Tab PO 15 mg BID-W/MEALS ARSH Administration Tiotropium [place] 2 puff 11/28/20 08:00 12/01/20 07:57 Tiotropium 2.5 Mcg Inhaler INHALATION 2 puff RT-DAILY ARSH Administration Intake and Output 11/30/20 12/01/20 12/01/20 22:59 06:59 14:59 Intake Total 350 180 Output Total 500 Balance 350 -500 180 Intake: Oral 350 180 Output: Urine 500 Other: Voiding Method Urinal Urinal # Bowel Movements 1 Weight 67.5 kg 12/01/20 07:30 12/01/20 07:30
--- NOTE | 2020-12-01 14:35 | P.PN ---
Subjective Progress Note Date: 12/01/20 This is a 75-year-old gentleman recently discharged on 11/19/20 with acute on chronic hypoxic respiratory failure, right lower lobe pneumonia with small right-sided parapneumonic effusion with alpha hemolytic streptococcus, non- hemolytic strep bacteremia, presented to the ER with worsening shortness of yuri th, cough, fatigue. Denies chest pain, palpitations. Denies lightheadedness, dizziness or focal deficits. Denies fever or chills. COVID-19 detected. Chest x-ray reported possible acute infiltrate right lower lung. He reporting normal sinus rhythm sinus arrhythmia, left anterior fascicular block. Temperature 99.1, tachypneic with respiratory rate 24-26, maintaining O2 sats of 87% on room air. Currently requiring 5-6 L to maintain O2 sats in the high 90s. Systolic blood pressure on admission 108/71, currently hypotensive with systolic blood pressure in the 80s. Elevated wbc's, 24.1, hemoglobin 10.1, platelets 206, neutrophils 22.7, INR 1.5, sodium 133, potassium 4.2, magnesium 1.8, bicarb 33 BUN 25, creatinine 0.4, lactic acid 2.6, alk phos 144, LDH 1318, C-reactive protein 13.9 BNP 737. Blood cultures ordered. Received 2 L of IV fluids. IV antibiotics of Zosyn, azithromycin initiated. 11/28/2020 maintained on antibiotics, steroids, IV fluid hydration and BiPAP overnight. Shortness of breath improved, O2 weaned down to 2 L nasal cannula maintaining O2 sats in the high 90s. Chest x-ray reporting no significant change, possible acute infiltrate right lower lung. Lactic acid down to 2. Afebrile, T-max 99.1, WBC down to 11.9. Hemoglobin 8.3, platelets 143. Sodium 134, potassium 4.3, BUN 20, creatinine 0.39. Blood sugars controlled. Denies chest pain, palpitations. 12/01/2020 Yesterday's chest x-ray reporting her worsening oxygen increased up to 10 L high flow nasal cannula. Antibiotics adjusted to Zosyn with vancomycin . Chest x-ray today reporting similar. Oxygen requirements decreased 6 L high flow, maintaining O2 sats in the low to high 90s. This morning having short bursts of paroxysmal atrial fibrillation with heart rates up into the 170s with PVCs. Denies chest pain, palpitations. EKG, troponin, magnesium ordered. Creatinine 0.5. Afebrile, WBC. Labs pending. Objective - Vital Signs Vital signs: Vital Signs Temp 98.1 F 12/01/20 07:16 Pulse 65 12/01/20 07:16 Resp 22 12/01/20 07:16 BP 113/60 12/01/20 07:16 Pulse Ox 96 12/01/20 07:16 Intake & Output 11/30/20 12/01/20 12/01/20 18:59 06:59 18:59 Intake Total 318 250 180 Output Total 1050 500 Balance -732 -250 180 Weight 67.5 kg Intake: Oral 318 250 180 Output: Urine 1050 500 Other: Voiding Method Urinal Urinal # Bowel Movements 1 - Exam - Exam PHYSICAL EXAM: VITAL SIGNS: [As above] GENERAL: Cachectic, Alert and oriented 3, Sitting up in bed, NAD, hoarse, generalized weakness HEENT: Conjunctivae normal. eyes normal. NECK: Supple, No JVD. CARDIOVASCULAR: S1, S2 regular. No murmur, gallops or rubs RESPIRATION: Poor air exchange ,Coarse,Breath sounds diminished in the bases. ABDOMEN: Soft, nontender . No guarding. no masses palpable. Bowel sounds heard. LEGS: Positive edema. No clubbing, no cyanosis. NERVOUS SYSTEM: Cranial N 2-12 grossly normal. No focal deficits. Extremely Weak. Skin: Warm and dry, no rash - Labs CBC & Chem 7: 12/01/20 07:30 12/01/20 07:30 Labs: Abnormal Lab Results - Last 24 Hours (Table) 11/30/20 11/30/20 11/30/20 Range/Units 10:43 10:43 11:47 WBC 15.2 H (3.8-10.6) k/uL RBC 2.49 L (4.30-5.90) m/uL Hgb 8.1 L (13.0-17.5) gm/dL Hct 25.3 L (39.0-53.0) % MCV 101.7 H (80.0-100.0) fL RDW 15.7 H (11.5-15.5) % Neutrophils # 14.0 H (1.3-7.7) k/uL Lymphocytes # 0.4 L (1.0-4.8) k/uL Carbon Dioxide (22-30) mmol/L BUN 28 H (9-20) mg/dL Creatinine 0.53 L (0.66-1.25) mg/dL Glucose 147 H (74-99) mg/dL POC Glucose (mg/dL) 134 H (75-99) mg/dL Calcium 8.2 L (8.4-10.2) mg/dL ALT 53 H (4-49) U/L Alkaline Phosphatase 138 H (38-126) U/L Total Protein 5.3 L (6.3-8.2) g/dL Albumin 2.6 L (3.5-5.0) g/dL 11/30/20 11/30/20 12/01/20 Range/Units 16:40 19:03 06:10 WBC (3.8-10.6) k/uL RBC (4.30-5.90) m/uL Hgb (13.0-17.5) gm/dL Hct (39.0-53.0) % MCV (80.0-100.0) fL RDW (11.5-15.5) % Neutrophils # (1.3-7.7) k/uL Lymphocytes # (1.0-4.8) k/uL Carbon Dioxide (22-30) mmol/L BUN (9-20) mg/dL Creatinine (0.66-1.25) mg/dL Glucose (74-99) mg/dL POC Glucose (mg/dL) 197 H 120 H 110 H (75-99) mg/dL Calcium (8.4-10.2) mg/dL ALT (4-49) U/L Alkaline Phosphatase (38-126) U/L Total Protein (6.3-8.2) g/dL Albumin (3.5-5.0) g/dL 12/01/20 12/01/20 Range/Units 07:30 07:30 WBC (3.8-10.6) k/uL RBC 2.29 L (4.30-5.90) m/uL Hgb 7.2 L (13.0-17.5) gm/dL Hct 23.2 L (39.0-53.0) % MCV 101.4 H (80.0-100.0) fL RDW 16.3 H (11.5-15.5) % Neutrophils # 9.0 H (1.3-7.7) k/uL Lymphocytes # 0.7 L (1.0-4.8) k/uL Carbon Dioxide 36 H (22-30) mmol/L BUN 25 H (9-20) mg/dL Creatinine 0.50 L (0.66-1.25) mg/dL Glucose 100 H (74-99) mg/dL POC Glucose (mg/dL) (75-99) mg/dL Calcium 8.0 L (8.4-10.2) mg/dL ALT (4-49) U/L Alkaline Phosphatase (38-126) U/L Total Protein 5.0 L (6.3-8.2) g/dL Albumin 2.5 L (3.5-5.0) g/dL Microbiology - Last 24 Hours (Table) 11/30/20 10:00 Gram Stain - Preliminary Sputum Sputum Culture - Preliminary 11/27/20 14:00 Blood Culture - Preliminary Blood No Growth after 72 hours 11/27/20 13:50 Blood Culture - Preliminary Blood No Growth after 72 hours Assessment and Plan Assessment: Sepsis present on admission related to ongoing right basilar pneumonia.Recently hospitalized and discharged on 11/19/2020 with Acute on chronic hypoxic resp iratory failure, secondary to right lower lobe pneumonia and small right-sided parapneumonic effusion with Bacteremia, alphahemolytic streptococcus, non- hemolytic strep. Reports he normally wears 2-1/2 L at home. Dehydration Hypotension secondary to the above. Leukocytosis improving MBS(prior hospitalization) reported mild impairment oral pharyngeal swallow, no evidence of penetration and/or aspiration. Regular diet, thin liquids recommended Bilateral lower extremity acute DVTs, maintained on Xarelto No PE, reported per CT Paroxysmal atrial fibrillation, chronic Significant unintentional weight loss of 40 pounds in the last 6-12 months, reported. Follow-up with GI outpatient for potential diagnostic EGD and colonoscopy. 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 Hemoptysis Advanced emphysema, COPD stage IV History of angina pectoris CAD with history of stenting Pulmonary hypertension Hyperlipidemia History of SVT Gastroesophageal reflux disease Alcohol use History of basal cell skin cancer Former nicotine dependence Osteoporosis Moderate protein calorie malnutrition, BMI 19.9 Medical debilitation, poor functional status Plan: Continue on current medication regime ,monitoring and symptomatic treatment. Labs pending.Maintain antibiotics, nebulized bronchodilators, steroids.Aggressive pulmonary toileting. Sputum cultures finalizing. PT/OT, extremely weak. The impression and plan of care has been dictated as directed. : I performed a history and examination of this patient, discussed the same with the dictator. I agree with the dictator's note ,documented as a scribe. Any additional findings or plans will be noted.
[2020-12-01 16:57] LABS: Glucose,Whole Blood 116 mg/dL (75-99)
[2020-12-01] MEDS: SODIUM CHLORIDE 0.9% 1,000 ML IV SCH (17:04)
--- NOTE | 2020-12-01 17:41 | P.PN ---
Subjective Progress Note Date: 12/01/20 Principal diagnosis: Acute healthcare acquired the right lower lobe pneumonia 7 2020, the patient is being seen for a follow-up. She was readmitted yesterday for a right lung pneumonia and COPD exacerbation. He was also dehydrated and hypotensive and responded nicely to IV fluids. He also responded to antibiotics and steroids. Overnight, the patient spent on a BiPAP at a pressure of 10/5 with an FiO2 of 35% and currently is on oxygen at 2 L per minute nasal cannula. His white cell count is down to 11.9. Hemoglobin is at 8.3 which is stable. Electrolytes are within normal limits. Lactic acid level dropped down to 2.0. Chest x-ray from today showing further clearing of the right lung consolidation. He has a congested cough. Unable to bring up much sputum. He was able to produce some and we were sending it for cultures. He was encouraged to use incentive spirometer. His oral intake is quite diminished and he is going to be provided some diet. IV fluids are in the form of 0.9 at the rate of 1 30 mL an hour. He is weak. He is awake and alert. Following commands and communicating without any major issues. No focal neurological deficits. 11/29/2020, the patient is resting comfortably on 8 L of oxygen by nasal cannula. He has no complaints. Overnight he uses the BiPAP. He is also on IV fluids running at 130 mL an hour. He is afebrile. Pulse ox is around 90%. White cell count from yesterday was down to 11.9 and all of labs are still pendi ng from today. Sputum cultures still pending. Blood cultures been negative. He remains on steroids. He remains on bronchodilators. He remains on Zosyn. He remains on Xarelto 50 mg by mouth twice a day. Oral intake is quite diminished. Using incentive spirometer. 11/30/2020, the patient is being seen in follow-up. Patient was admitted intensive care unit for right lung pneumonia, sepsis, COPD exacerbation. As stated earlier, he has advanced COPD and chronic hypoxic respiratory failure. On today's evaluation, he is still requiring oxygen somewhere between 8 and a liters high flow. His pulse ox currently is around 91%. Overnight, he is utilizing the BiPAP. He feels well despite his high oxygen requirements. He is struggling more with his breathing on today's evaluation. He has a congested cough. He is trying to bring up some sputum out. A repeat chest x-ray was done today and compared to the earlier chest x-rays, there is still a right lower lobe consolidation with some interval worsening. There may be also some volume loss in the right lower lobe. Afebrile. His white cell count from today is still pending. Note that his 's a with essentially dropping. Nevertheless, he has worsening in the right lower lobe consolidation. Antibiotic coverage remains a combination of Zosyn and Zithromax. Morbid concerned about his progression, the one that was seen on today's chest x-ray. He is obviously more struggling with his breathing. He has a congested cough, unable to bring up much sputum. Unable to utilize the incentive spirometer effectively. Note that he has end-stage lung disease and COPD as stated earlier. Reevaluated today on 12/02/19, patient is now on the regular medical floor, he is being treated for right lung pneumonia. Sepsis, COPD exacerbation. Patient is on 6 L nasal cannula at present, and his O2 saturation is 96%. He is afebrile, hemodynamically stable blood pressure is 126/69, WBC count is 10.2 hemoglobin is 7.2. Electric lites are normal renal profile is normal troponin is less than 0.012. Chest x-ray continues right lower lobe (airspace disease. Clinically however the patient seems to be better than expected and does not seem to be in any distress. Objective - Vital Signs Vital signs: Vital Signs Temp 97.6 F 12/01/20 17:00 Pulse 70 12/01/20 17:00 Resp 20 12/01/20 17:00 BP 126/69 12/01/20 17:00 Pulse Ox 96 12/01/20 17:00 Intake & Output 11/30/20 12/01/20 12/01/20 18:59 06:59 18:59 Intake Total 318 250 420 Output Total 1050 500 Balance -732 -250 420 Weight 67.5 kg Intake: Oral 318 250 420 Output: Urine 1050 500 Other: Voiding Method Urinal Urinal # Bowel Movements 1 - Exam GENERAL EXAM: Revealed 75-year-old white male in no distress. HEAD: Normocephalic/atraumatic. EENT: PERRLA, EOMI, anicteric, no neck masses, no JVD, no stridor. CHEST: No chest wall deformity. Symmetrical expansion. LUNGS: Fine crackles at right base CVS: Regular rate and rhythm, normal S1 and S2, no gallops, no murmurs, no rubs ABDOMEN: Soft, nontender. No hepatosplenomegaly, normal bowel sounds, no guarding or rigidity. EXTREMITIES: No clubbing edema or cyanosis. MUSCULOSKELETAL: Muscle strength and tone normal. SKIN: No rashes CENTRAL NERVOUS SYSTEM: Oriented 3 in no gross focal deficit. PSYCHIATRIC: Normal mood affect and normal mental status examination - Labs CBC & Chem 7: 12/01/20 07:30 12/01/20 07:30 Labs: Abnormal Lab Results - Last 24 Hours (Table) 11/30/20 12/01/20 12/01/20 Range/Units 19:03 06:10 07:30 RBC 2.29 L (4.30-5.90) m/uL Hgb 7.2 L (13.0-17.5) gm/dL Hct 23.2 L (39.0-53.0) % MCV 101.4 H (80.0-100.0) fL RDW 16.3 H (11.5-15.5) % Neutrophils # 9.0 H (1.3-7.7) k/uL Lymphocytes # 0.7 L (1.0-4.8) k/uL Carbon Dioxide (22-30) mmol/L BUN (9-20) mg/dL Creatinine (0.66-1.25) mg/dL Glucose (74-99) mg/dL POC Glucose (mg/dL) 120 H 110 H (75-99) mg/dL Calcium (8.4-10.2) mg/dL Total Protein (6.3-8.2) g/dL Albumin (3.5-5.0) g/dL Procalcitonin (0.02-0.09) ng/mL 12/01/20 12/01/20 12/01/20 Range/Units 07:30 07:30 12:02 RBC (4.30-5.90) m/uL Hgb (13.0-17.5) gm/dL Hct (39.0-53.0) % MCV (80.0-100.0) fL RDW (11.5-15.5) % Neutrophils # (1.3-7.7) k/uL Lymphocytes # (1.0-4.8) k/uL Carbon Dioxide 36 H (22-30) mmol/L BUN 25 H (9-20) mg/dL Creatinine 0.50 L (0.66-1.25) mg/dL Glucose 100 H (74-99) mg/dL POC Glucose (mg/dL) 163 H (75-99) mg/dL Calcium 8.0 L (8.4-10.2) mg/dL Total Protein 5.0 L (6.3-8.2) g/dL Albumin 2.5 L (3.5-5.0) g/dL Procalcitonin 0.15 H (0.02-0.09) ng/mL 12/01/20 Range/Units 16:50 RBC (4.30-5.90) m/uL Hgb (13.0-17.5) gm/dL Hct (39.0-53.0) % MCV (80.0-100.0) fL RDW (11.5-15.5) % Neutrophils # (1.3-7.7) k/uL Lymphocytes # (1.0-4.8) k/uL Carbon Dioxide (22-30) mmol/L BUN (9-20) mg/dL Creatinine (0.66-1.25) mg/dL Glucose (74-99) mg/dL POC Glucose (mg/dL) 116 H (75-99) mg/dL Calcium (8.4-10.2) mg/dL Total Protein (6.3-8.2) g/dL Albumin (3.5-5.0) g/dL Procalcitonin (0.02-0.09) ng/mL Microbiology - Last 24 Hours (Table) 11/27/20 13:50 Blood Culture - Preliminary Blood No Growth after 96 hours 11/27/20 14:00 Blood Culture - Preliminary Blood No Growth after 96 hours 11/30/20 10:00 Gram Stain - Preliminary Sputum Sputum Culture - Preliminary Alba albicans Assessment and Plan Assessment: Impression: Acute on chronic hypoxic respiratory failure secondary to right lower lobe pneumonia likely healthcare acquired, also secondary to severe COPD FEV1 of 22%. Patient is on home oxygen at 2 L. History of severe COPD as noted above Bilateral lower extremity DVT maintained on Xarelto. Coronary artery disease and previous stenting. Benign essential hypertension. Dyslipidemia. History of osteoporosis. Chronic compression fracture of lumbosacral spine. Recurrent pneumonia Recommendation: Continue present treatment plan including antibiotics, bronchodilators, steroids, Continue bronchodilators. Titrate FiO2 down and hopefully get him back to his baseline on 2 L nasal cannula. Incident discharge planning in the next 24 hours Continue incentive spirometry. Continue Mucinex. Continue Xarelto for DVT. COVID-19 testing was negative. Use BiPAP as needed. We will continue to follow. Time with Patient: Less than 30
[2020-12-01 20:21] LABS: Glucose,Whole Blood 233 mg/dL (75-99)
[2020-12-01] MEDS: LACTOBACILLUS ACIDOPH & BULGAR 1 EACH PACKET PO SCH (20:34)
[2020-12-02] MEDS: PIPERACILLIN-TAZOBACTAM 3.375 GM in SODIUM CHLORIDE 0.9% 100 ML IVPB SCH ×3 (00:47→16:48)
[2020-12-02] MEDS: CLOTRIMAZOLE TROCHE 10 MG TROCHE MUCOUS MEM SCH ×5 (00:49→22:02)
[2020-12-02 07:06] LABS: Glucose,Whole Blood 87 mg/dL (75-99)
[2020-12-02] MEDS: INSULIN ASPART (NovoLOG) 100 UNIT/ML VIAL SQ SCH ×4 (07:23→22:02)
[2020-12-02] MEDS: atenoloL 25 MG TAB PO SCH (07:24)
[2020-12-02] MEDS: methylPREDNISolone SOD SUCCI 125 MG/2 ML VIAL IV SCH (07:25)
[2020-12-02] MEDS: PANTOPRAZOLE 40 MG TABLET PO SCH (07:25)
[2020-12-02] MEDS: guaiFENesin-DM 600/30MG 1 EACH TAB.ER.12H PO SCH ×2 (07:25→21:59)
[2020-12-02] MEDS: MULTIVITAMINS, THERA 1 EACH TAB PO SCH (07:25)
[2020-12-02] MEDS: RIVAROXABAN 15 MG TAB PO SCH ×2 (07:48→16:47)
[2020-12-02] MEDS: ALBUTEROL HFA INHALER INHALATION SCH ×3 (07:52→19:52)
[2020-12-02] MEDS: SYMBICORT 160-4.5 MCG INHALER INHALATION SCH ×3 (07:52→19:52)
[2020-12-02] MEDS: TIOTROPIUM 2.5 MCG INHALER INHALATION SCH ×2 (07:52→07:56)
[2020-12-02] MEDS ORDERED: VANCOMYCIN TROUGH DUE 1 EACH MISC MISCELLANE ONE (09:00)
[2020-12-02 09:35] LABS: African American GFR (CKD) >90 (>60 ml/min/1.73 sqM); Non-African American GFR(CKD) >90 (>60 ml/min/1.73 sqM)
[2020-12-02 10:13] LABS: Anisocytosis Slight; HCT 23.3 % (39.0-53.0); HGB 7.3 gm/dL (13.0-17.5); Hypochromasia Moderate; MCH 32.5 pg (25.0-35.0); MCHC 31.2 g/dL (31.0-37.0); Macrocytosis Moderate; Mean Platelet Volume 8.6; Platelet Count 210 k/uL (150-450); RBC 2.24 m/uL (4.30-5.90); RDW 17.4 % (11.5-15.5); WBC 9.9 k/uL (3.8-10.6)
[2020-12-02] MEDS: SODIUM CHLORIDE 0.9% 1,000 ML IV SCH (10:53)
[2020-12-02] MEDS: VANCOMYCIN 1,250 MG in SODIUM CHLORIDE 0.9% 250 ML IVPB SCH (10:53)
[2020-12-02 11:17] LABS: Glucose,Whole Blood 234 mg/dL (75-99)
--- NOTE | 2020-12-02 11:20 | P.PN ---
Subjective Progress Note Date: 12/02/20 This is a 75-year-old gentleman recently discharged on 11/19/20 with acute on chronic hypoxic respiratory failure, right lower lobe pneumonia with small right-sided parapneumonic effusion with alpha hemolytic streptococcus, non- hemolytic strep bacteremia, presented to the ER with worsening shortness of yuri th, cough, fatigue. Denies chest pain, palpitations. Denies lightheadedness, dizziness or focal deficits. Denies fever or chills. COVID-19 detected. Chest x-ray reported possible acute infiltrate right lower lung. He reporting normal sinus rhythm sinus arrhythmia, left anterior fascicular block. Temperature 99.1, tachypneic with respiratory rate 24-26, maintaining O2 sats of 87% on room air. Currently requiring 5-6 L to maintain O2 sats in the high 90s. Systolic blood pressure on admission 108/71, currently hypotensive with systolic blood pressure in the 80s. Elevated wbc's, 24.1, hemoglobin 10.1, platelets 206, neutrophils 22.7, INR 1.5, sodium 133, potassium 4.2, magnesium 1.8, bicarb 33 BUN 25, creatinine 0.4, lactic acid 2.6, alk phos 144, LDH 1318, C-reactive protein 13.9 BNP 737. Blood cultures ordered. Received 2 L of IV fluids. IV antibiotics of Zosyn, azithromycin initiated. 11/28/2020 maintained on antibiotics, steroids, IV fluid hydration and BiPAP overnight. Shortness of breath improved, O2 weaned down to 2 L nasal cannula maintaining O2 sats in the high 90s. Chest x-ray reporting no significant change, possible acute infiltrate right lower lung. Lactic acid down to 2. Afebrile, T-max 99.1, WBC down to 11.9. Hemoglobin 8.3, platelets 143. Sodium 134, potassium 4.3, BUN 20, creatinine 0.39. Blood sugars controlled. Denies chest pain, palpitations. 12/01/2020 Yesterday's chest x-ray reporting her worsening oxygen increased up to 10 L high flow nasal cannula. Antibiotics adjusted to Zosyn with vancomycin . Chest x-ray today reporting similar. Oxygen requirements decreased 6 L high flow, maintaining O2 sats in the low to high 90s. This morning having short bursts of paroxysmal atrial fibrillation with heart rates up into the 170s with PVCs. Denies chest pain, palpitations. EKG, troponin, magnesium ordered. Creatinine 0.5. Afebrile, WBC. Labs pending. 12/02/2020 oxygen requirement currently up to 10 L high flow, maintaining O2 sat 100% which can be weaned down. Yesterday patient expressed that he is tired of being in hospitals and rehab., requesting to go home on hospice. Hospice consult initiated. Patient and discussed plan with hospice team. Patient will be discharged home tomorrow with hospice. Denies any chest pain, palpitations. Objective - Vital Signs Vital signs: Vital Signs Temp 97.6 F 12/02/20 07:50 Pulse 63 12/02/20 07:50 Resp 18 12/02/20 08:00 BP 127/72 12/02/20 07:50 Pulse Ox 100 12/02/20 07:50 Intake & Output 12/01/20 12/02/20 12/02/20 18:59 06:59 18:59 Intake Total 1170 240 Balance 1170 240 Intake: Intake, IV Titration 550 Amount Piperacillin-Tazobactam 3 200 .375 gm In Sodium Chloride 0.9% 100 ml @ 25 mls/hr IVPB Q8HR [facility] Rx# :[id number] Sodium Chloride 0.9% 1, 100 000 ml @ 10 mls/hr IV . Q24H [facility] Rx#:[id number] Vancomycin 1,250 mg In 250 Sodium Chloride 0.9% 250 ml @ 125 mls/hr IVPB Q12H [facility] Rx#:[id number] Oral 620 240 Other: Voiding Method Urinal Urinal Diaper Diaper - Exam - Exam PHYSICAL EXAM: VITAL SIGNS: [As above] GENERAL: Cachectic, Alert and oriented 3, Sitting up in bed, NAD, hoarse, generalized weakness HEENT: Conjunctivae normal. eyes normal. NECK: Supple, No JVD. CARDIOVASCULAR: S1, S2 regular. No murmur, gallops or rubs RESPIRATION: Poor air exchange ,Coarse,Breath sounds diminished in the bases. ABDOMEN: Soft, nontender . No guarding. no masses palpable. Bowel sounds heard. LEGS: Positive edema. No clubbing, no cyanosis. NERVOUS SYSTEM: Cranial N 2-12 grossly normal. No focal deficits. Extremely Weak. Skin: Warm and dry, no rash - Labs CBC & Chem 7: 12/02/20 09:07 12/02/20 09:07 Labs: Abnormal Lab Results - Last 24 Hours (Table) 12/01/20 12/01/20 12/01/20 Range/Units 07:30 12:02 16:50 POC Glucose (mg/dL) 163 H 116 H (75-99) mg/dL Procalcitonin 0.15 H (0.02-0.09) ng/mL 12/01/20 Range/Units 20:19 POC Glucose (mg/dL) 233 H (75-99) mg/dL Procalcitonin (0.02-0.09) ng/mL Microbiology - Last 24 Hours (Table) 11/27/20 13:50 Blood Culture - Preliminary Blood No Growth after 96 hours 11/27/20 14:00 Blood Culture - Preliminary Blood No Growth after 96 hours 11/30/20 10:00 Gram Stain - Preliminary Sputum Sputum Culture - Preliminary Alba albicans Assessment and Plan Assessment: Sepsis present on admission related to ongoing right basilar pneumonia.Recently hospitalized and discharged on 11/19/2020 with Acute on chronic hypoxic respiratory failure, secondary to right lower lobe pneumonia and small right- sided parapneumonic effusion with Bacteremia, alphahemolytic streptococcus, non- hemolytic strep. Reports he normally wears 2-1/2 L at home. Dehydration Hypotension secondary to the above. Leukocytosis improving MBS(prior hospitalization) reported mild impairment oral pharyngeal swallow, no evidence of penetration and/or aspiration. Regular diet, thin liquids recommended Bilateral lower extremity acute DVTs, maintained on Xarelto No PE, reported per CT Paroxysmal atrial fibrillation, chronic Significant unintentional weight loss of 40 pounds in the last 6-12 months, reported. Follow-up with GI outpatient for potential diagnostic EGD and colonoscopy. 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 Hemoptysis Advanced emphysema, COPD stage IV History of angina pectoris CAD with history of stenting Pulmonary hypertension Hyperlipidemia History of SVT Gastroesophageal reflux disease Alcohol use History of basal cell skin cancer Former nicotine dependence Osteoporosis Moderate protein calorie malnutrition, BMI 19.9 Medical debilitation, poor functional status No code, no CPR, no intubation Plan: Continue on current medication regime ,monitoring and symptomatic treatment. Maintain supportive care with antibiotics, nebulized bronchodilators, steroids. As mentioned above patient will be discharged home with hospice tomorrow. The impression and plan of care has been dictated as directed. : I performed a history and examination of this patient, discussed the same with the dictator. I agree with the dictator's note ,documented as a scribe. Any additional findings or plans will be noted.
--- NOTE | 2020-12-02 12:12 | P.PN ---
Subjective Progress Note Date: 12/02/20 HISTORY OF PRESENT ILLNESS: This is a pleasant 75-year-old male past medical history significant for COPD, coronary artery disease status post PCI of the mid RCA in 2008, history of SVT, DVT maintained on Xarelto and recent diagnosis of pneumonia. He follows in the office with Dr. Scales. We have been asked to see in consultation for tachycardia. He is seen and examined resting comfortably sitting up in bed on high flow nasal cannula. The patient is somewhat tachypneic however he states his breathing has improved since yesterday. He is currently being treated for pneumonia on IV antibiotics. Also has positive blood cultures. Telemetry tracings reviewed, he is having short bursts of paroxysmal atrial fibrillation with aberrancy. Rates are controlled. He denies symptoms of chest pain or palpitations. He was evaluated in October by Dr. Sofia secondary to elevated troponin that were related to infection not acute coronary syndrome. He recently had cardiac catheterization in August 2019 revealing calcified left main free of significant stenosis, calcified LAD with mild to moderate atherosclerotic plaque in the midportion, circumflex is calcified with no hemodynamically significant plaque, RCA is heavily calcified with moderate plaque in the midportion at worst 40%. Medical management was recommended at that time. DIAGNOSTICS EKG reveals mechanism with left anterior fascicular block and poor R-wave progression. Chest xray bilateral airspace disease underlying of the somatic changes. Laboratory reviewed, WBC 10.2, hemoglobin 7.2, platelets 175, sodium 139, potassium 4.3, creatinine 0.5, magnesium 2.0, troponin negative 1, TSH 1.88 and pro-calcitonin 0.15. Current cardiac medications include Toprol 50 mg twice a day, aspirin 81 mg da julia, Lasix 20 mg daily and atenolol 25 mg every other day. 12/02/2020 Patient examined this morning at the bedside with Dr. Castellon. Patient is lethargic at the time of examination. He is on Xarelto for anticoagulation. Heart rate is currently controlled. Patient is on 10 L nasal cannula. PHYSICAL EXAM: VITAL SIGNS: Reviewed. GENERAL: Well-developed in no acute distress. NECK: Supple. No JVD or thyromegaly LUNGS: Respirations even and unlabored. Lungs diminished bilaterally. HEART: Regular rate and rhythm. S1 and S2 heard. EXTREMITIES: Normal range of motion. No clubbing or cyanosis. Peripheral pulses intact. Trace bilateral lower extremity edema ASSESSMENT: New onset paroxysmal atrial fibrillation already on anticoagulation secondary to a DVT Pneumonia COPD Bilateral lower extremity DVT maintained on Xarelto Coronary artery disease status post PCI in 2008 Hypertension Dyslipidemia PLAN: Continue current cardiac medications Plan is for patient to be discharged home with hospice We will sign off. Please reconsult if needed Nurse practitioner note has been reviewed by physician. Signing provider agrees with the documented findings, assessment, and plan of care. Objective - Vital Signs Vital signs: Vital Signs Temp 97.6 F 12/02/20 07:50 Pulse 63 12/02/20 07:50 Resp 18 12/02/20 08:00 BP 127/72 12/02/20 07:50 Pulse Ox 100 12/02/20 07:50 Intake & Output 12/01/20 12/02/20 12/02/20 18:59 06:59 18:59 Intake Total 1170 240 Balance 1170 240 Intake: Intake, IV Titration 550 Amount Piperacillin-Tazobactam 3 200 .375 gm In Sodium Chloride 0.9% 100 ml @ 25 mls/hr IVPB Q8HR [facility] Rx# :[id number] Sodium Chloride 0.9% 1, 100 000 ml @ 10 mls/hr IV . Q24H [facility] Rx#:[id number] Vancomycin 1,250 mg In 250 Sodium Chloride 0.9% 250 ml @ 125 mls/hr IVPB Q12H [facility] Rx#:[id number] Oral 620 240 Other: Voiding Method Urinal Urinal Diaper Diaper - Labs CBC & Chem 7: 12/02/20 09:07 12/02/20 09:07 Labs: Abnormal Lab Results - Last 24 Hours (Table) 12/01/20 12/01/20 12/01/20 Range/Units 12:02 16:50 20:19 RBC (4.30-5.90) m/uL Hgb (13.0-17.5) gm/dL Hct (39.0-53.0) % MCV (80.0-100.0) fL RDW (11.5-15.5) % Creatinine (0.66-1.25) mg/dL POC Glucose (mg/dL) 163 H 116 H 233 H (75-99) mg/dL 05/11/21 05/11/21 05/11/21 Range/Units 09:07 09:07 11:16 RBC 2.24 L (4.30-5.90) m/uL Hgb 7.3 L (13.0-17.5) gm/dL Hct 23.3 L (39.0-53.0) % MCV 104.0 H (80.0-100.0) fL RDW 17.4 H (11.5-15.5) % Creatinine 0.44 L (0.66-1.25) mg/dL POC Glucose (mg/dL) 234 H (75-99) mg/dL Microbiology - Last 24 Hours (Table) 11/30/20 10:00 Gram Stain - Final Sputum Sputum Culture - Final Alba albicans 11/27/20 13:50 Blood Culture - Preliminary Blood No Growth after 96 hours 11/27/20 14:00 Blood Culture - Preliminary Blood No Growth after 96 hours
[2020-12-02 13:46] VITALS: BMI 21.3
[2020-12-02 13:51] LABS: Large Platelets Present; Polychromasia Present
--- NOTE | 2020-12-02 16:17 | P.PN ---
Subjective Progress Note Date: 12/02/20 Principal diagnosis: Acute healthcare acquired right lower lobe pneumonia, possibly aspiration pneumonia 7 2020, the patient is being seen for a follow-up. She was readmitted yesterday for a right lung pneumonia and COPD exacerbation. He was also dehydrated and hypotensive and responded nicely to IV fluids. He also responded to antibiotics and steroids. Overnight, the patient spent on a BiPAP at a pressure of 10/5 with an FiO2 of 35% and currently is on oxygen at 2 L per minute nasal cannula. His white cell count is down to 11.9. Hemoglobin is at 8.3 which is stable. Electrolytes are within normal limits. Lactic acid level dropped down to 2.0. Chest x-ray from today showing further clearing of the right lung consolidation. He has a congested cough. Unable to bring up much sputum. He was able to produce some and we were sending it for cultures. He was encouraged to use incentive spirometer. His oral intake is quite diminished and he is going to be provided some diet. IV fluids are in the form of 0.9 at the rate of 1 30 mL an hour. He is weak. He is awake and alert. Following commands and communicating without any major issues. No focal neurological deficits. 11/29/2020, the patient is resting comfortably on 8 L of oxygen by nasal cannula. He has no complaints. Overnight he uses the BiPAP. He is also on IV fluids running at 130 mL an hour. He is afebrile. Pulse ox is around 90%. White cell count from yesterday was down to 11.9 and all of labs are still pending from today. Sputum cultures still pending. Blood cultures been nega tive. He remains on steroids. He remains on bronchodilators. He remains on Zosyn. He remains on Xarelto 50 mg by mouth twice a day. Oral intake is quite diminished. Using incentive spirometer. 11/30/2020, the patient is being seen in follow-up. Patient was admitted intensive care unit for right lung pneumonia, sepsis, COPD exacerbation. As stated earlier, he has advanced COPD and chronic hypoxic respiratory failure. On today's evaluation, he is still requiring oxygen somewhere between 8 and a liters high flow. His pulse ox currently is around 91%. Overnight, he is utilizing the BiPAP. He feels well despite his high oxygen requirements. He is struggling more with his breathing on today's evaluation. He has a congested cough. He is trying to bring up some sputum out. A repeat chest x-ray was done today and compared to the earlier chest x-rays, there is still a right lower lobe consolidation with some interval worsening. There may be also some volume loss in the right lower lobe. Afebrile. His white cell count from today is still pending. Note that his 's a with essentially dropping. Nevertheless, he has worsening in the right lower lobe consolidation. Antibiotic coverage remains a combination of Zosyn and Zithromax. Morbid concerned about his progression, the one that was seen on today's chest x-ray. He is obviously more struggling with his breathing. He has a congested cough, unable to bring up much sputum. Unable to utilize the incentive spirometer effectively. Note that he has end-stage lung disease and COPD as stated earlier. Reevaluated today on 12/02/19, patient is now on the regular medical floor, he is being treated for right lung pneumonia. Sepsis, COPD exacerbation. Patient is on 6 L nasal cannula at present, and his O2 saturation is 96%. He is afebrile, hemodynamically stable blood pressure is 126/69, WBC count is 10.2 hemoglobin is 7.2. Electric lites are normal renal profile is normal troponin is less than 0.012. Chest x-ray continues right lower lobe (airspace disease. Clinically however the patient seems to be better than expected and does not seem to be in any distress. On 12/02/2020 patient seen in follow-up on medical surgical floor, appears very weak, no acute distress, he continues to require high flow oxygen, currently at 10 L which can probably be weaned down because his pulse ox is 99-100%, he is af ebrile, hemodynamically he remains stable. Last chest x-ray from yesterday showed bilateral airspace disease the background of emphysematous changes. Today's labs have been reviewed showing white blood cell count of 9.9, hemoglobin is 7.3, creatinine is 0.4, he continues on Solu-Medrol 60 g every 12 hours, and continues on Zosyn and vancomycin. His sputum culture only showed Alba albicans, blood cultures show no growth. He went into A. fib with RVR, currently appears to be in sinus, cardiology consultation was obtained, his rate is currently controlled, he remains on atenolol 25 mg daily, and he is on Xarelto 15 mg twice daily for history of DVT. Objective - Vital Signs Vital signs: Vital Signs Temp 97.7 F 12/02/20 14:00 Pulse 69 12/02/20 14:00 Resp 20 12/02/20 14:00 BP 111/61 12/02/20 14:00 Pulse Ox 99 12/02/20 14:00 Intake & Output 12/01/20 12/02/20 12/02/20 18:59 06:59 18:59 Intake Total 1170 240 Balance 1170 240 Weight 67.5 kg Intake: Intake, IV Titration 550 Amount Piperacillin-Tazobactam 3 200 .375 gm In Sodium Chloride 0.9% 100 ml @ 25 mls/hr IVPB Q8HR [facility] Rx# :[id number] Sodium Chloride 0.9% 1, 100 000 ml @ 10 mls/hr IV . Q24H [facility] Rx#:[id number] Vancomycin 1,250 mg In 250 Sodium Chloride 0.9% 250 ml @ 125 mls/hr IVPB Q12H [facility] Rx#:[id number] Oral 620 240 Other: Voiding Method Urinal Urinal Diaper Diaper - Exam GENERAL EXAM: Alert, very pleasant, 75-year-old white male, creatinine 10 L of oxygen pulse ox of 99 -100%, appears very weak, fatigued, but no acute distress comfortable in no apparent distress. HEAD: Normocephalic/atraumatic. EYES: Normal reaction of pupils, equal size. Conjunctiva pink, sclera white. NOSE: Clear with pink turbinates. THROAT: No erythema or exudates. NECK: No masses, no JVD, no thyroid enlargement, no adenopathy. CHEST: No chest wall deformity. Symmetrical expansion. LUNGS: Equal air entry with no crackles, wheeze, rhonchi or dullness. CVS: Regular rate and rhythm, normal S1 and S2, no gallops, no murmurs, no rubs ABDOMEN: Soft, nontender. No hepatosplenomegaly, normal bowel sounds, no guarding or rigidity. EXTREMITIES: No clubbing, no edema, no cyanosis, 2+ pulses and upper and lower extremities. MUSCULOSKELETAL: Muscle strength and tone normal. SPINE: No scoliosis or deformity SKIN: No rashes CENTRAL NERVOUS SYSTEM: Alert and oriented -3. No focal deficits, tone is normal in all 4 extremities. PSYCHIATRIC: Alert and oriented -3. Appropriate affect. Intact judgment and insight. - Labs CBC & Chem 7: 12/02/20 09:07 12/02/20 09:07 Labs: Abnormal Lab Results - Last 24 Hours (Table) 12/01/20 12/01/20 12/02/20 Range/Units 16:50 20:19 09:07 RBC (4.30-5.90) m/uL Hgb (13.0-17.5) gm/dL Hct (39.0-53.0) % MCV (80.0-100.0) fL RDW (11.5-15.5) % Creatinine 0.44 L (0.66-1.25) mg/dL POC Glucose (mg/dL) 116 H 233 H (75-99) mg/dL 12/02/20 12/02/20 Range/Units 09:07 11:16 RBC 2.24 L (4.30-5.90) m/uL Hgb 7.3 L (13.0-17.5) gm/dL Hct 23.3 L (39.0-53.0) % MCV 104.0 H (80.0-100.0) fL RDW 17.4 H (11.5-15.5) % Creatinine (0.66-1.25) mg/dL POC Glucose (mg/dL) 234 H (75-99) mg/dL Microbiology - Last 24 Hours (Table) 11/30/20 10:00 Gram Stain - Final Sputum Sputum Culture - Final Alba albicans 11/27/20 13:50 Blood Culture - Preliminary Blood No Growth after 96 hours 11/27/20 14:00 Blood Culture - Preliminary Blood No Growth after 96 hours Assessment and Plan Plan: Assessment: #1. Acute on chronic hypoxic respiratory failure secondary to right lower lobe pneumonia likely healthcare acquired. Patient usually wears 2 L of oxygen on a regular basis #2. History of severe COPD with baseline FEV1 of 22% of predicted with chronic hypoxic respiratory failure #3. 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 New-onset A. fib with RVR, currently the rate is controlled, cardiology is following #5. Coronary artery disease to previous stenting #6. Dyslipidemia #7. Benign essential hypertension #8. History of osteoporosis #9. Chronic compression fracture of lumbosacral spine #10. Recurrent pneumonia #11. Chronic medical debility Plan: Continue Zosyn Discontinue vancomycin We'll switch IV steroids to oral prednisone starting tomorrow Wean FiO2 to keep O2 sats at 89-90% No fever or chills, sputum culture only showed Alba albicans Continue oral anticoagulation Currently heart rate is regular and controlled Cardiology is following Overall prognosis is extremely guarded We'll continue to follow I performed a history & physical examination of the patient and discussed their management with my nurse practitioner, Cookie Mason. I reviewed the nurse practitioner's note and agree with the documented findings and plan of care. Lung sounds are positive for bibasilar diminished breath sounds The findings and the impression was discussed with the patient. I attest to the documentation by the nurse practitioner. Time with Patient: Less than 30
[2020-12-02 16:23] LABS: Glucose,Whole Blood 156 mg/dL (75-99)
[2020-12-02 20:20] LABS: Glucose,Whole Blood 156 mg/dL (75-99)
[2020-12-02] MEDS: LACTOBACILLUS ACIDOPH & BULGAR 1 EACH PACKET PO SCH (21:59)
[2020-12-02] MEDS: ACETAMINOPHEN TAB 325 MG TAB PO PRN (22:07)
[2020-12-03] MEDS: CLOTRIMAZOLE TROCHE 10 MG TROCHE MUCOUS MEM SCH ×3 (01:10→10:24)
[2020-12-03] MEDS: PIPERACILLIN-TAZOBACTAM 3.375 GM in SODIUM CHLORIDE 0.9% 100 ML IVPB SCH ×2 (01:10→08:10)
[2020-12-03] MEDS: TIOTROPIUM 2.5 MCG INHALER INHALATION SCH (07:33)
[2020-12-03] MEDS: SYMBICORT 160-4.5 MCG INHALER INHALATION SCH (07:33)
[2020-12-03] MEDS: ALBUTEROL HFA INHALER INHALATION SCH ×2 (07:33→11:10)
[2020-12-03 07:38] LABS: Glucose,Whole Blood 78 mg/dL (75-99)
[2020-12-03] MEDS: INSULIN ASPART (NovoLOG) 100 UNIT/ML VIAL SQ SCH ×2 (07:42→12:13)
[2020-12-03 07:48] LABS: African American GFR (CKD) >90 (>60 ml/min/1.73 sqM); Non-African American GFR(CKD) >90 (>60 ml/min/1.73 sqM)
[2020-12-03] MEDS: MULTIVITAMINS, THERA 1 EACH TAB PO SCH (08:09)
[2020-12-03] MEDS: PANTOPRAZOLE 40 MG TABLET PO SCH (08:10)
[2020-12-03] MEDS: atenoloL 25 MG TAB PO SCH (08:10)
[2020-12-03] MEDS: RIVAROXABAN 15 MG TAB PO SCH (08:10)
[2020-12-03] MEDS: guaiFENesin-DM 600/30MG 1 EACH TAB.ER.12H PO SCH (08:10)
[2020-12-03 08:20] VITALS: BP 123/81; PULSE 62; RESP 20; TEMP 97.4
[2020-12-03] MEDS ORDERED: predniSONE 20 MG TAB PO SCH (09:00)
--- NOTE | 2020-12-03 09:23 | P.DS ---
Providers Date of admission: 11/27/20 14:02 Expected date of discharge: 12/03/20 Attending physician: Fritz Ibarra Consults: 11/27/20 14:02 Consult Physician Stat Consulting Provider: Radha Teran Consult Reason/Comments: dyspnea, critical care Do you want consulting provider notified?: Already Contacted Primary care physician: Brendan Chan [facility] Course: Final Diagnoses: Sepsis present on admission related to ongoing right basilar pneumonia.Recently hospitalized and discharged on 11/19/2020 with Acute on chronic hypoxic respiratory failure, secondary to right lower lobe pneumonia and small right- sided parapneumonic effusion with Bacteremia, alphahemolytic streptococcus, non- hemolytic strep. Reports he normally wears 2-1/2 L at home. Dehydration Hypotension secondary to the above. Leukocytosis improving MBS(prior hospitalization) reported mild impairment oral pharyngeal swallow, no evidence of penetration and/or aspiration. Regular diet, thin liquids rec ommended Bilateral lower extremity acute DVTs, maintained on Xarelto No PE, reported per CT Paroxysmal atrial fibrillation, chronic Significant unintentional weight loss of 40 pounds in the last 6-12 months, reported. Follow-up with GI outpatient for potential diagnostic EGD and colonoscopy. 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 Hemoptysis Advanced emphysema, COPD stage IV History of angina pectoris CAD with history of stenting Pulmonary hypertension Hyperlipidemia History of SVT Gastroesophageal reflux disease Alcohol use History of basal cell skin cancer Former nicotine dependence Osteoporosis Moderate protein calorie malnutrition, BMI 19.9 Medical debilitation, poor functional status No code, no CPR, no intubation Hospital course:This is a 75-year-old gentleman recently discharged on 11/19/20 with acute on chronic hypoxic respiratory failure, right lower lobe pneumonia with small right-sided parapneumonic effusion with alpha hemolytic streptococcus, non-hemolytic strep bacteremia, presented to the ER with worsening shortness of breath, cough, fatigue. Denies chest pain, palpitations. Denies lightheadedness, dizziness or focal deficits. Denies fever or chills. COVID-19 detected. Chest x-ray reported possible acute infiltrate right lower lung. He reporting normal sinus rhythm sinus arrhythmia, left anterior fascicular block. Temperature 99.1, tachypneic with respiratory rate 24-26, maintaining O2 sats of 87% on room air. Currently requiring 5-6 L to maintain O2 sats in the high 90s. Systolic blood pressure on admission 108/71, currently hypotensive with systolic blood pressure in the 80s. Elevated wbc's, 24.1, hemoglobin 10.1, platelets 206, neutrophils 22.7, INR 1.5, sodium 133, potassium 4.2, magnesium 1.8, bicarb 33 BUN 25, creatinine 0.4, lactic acid 2.6, alk phos 144, LDH 1318, C-reactive protein 13.9 BNP 737. Blood cultures ordered. Received 2 L of IV fluids. IV antibiotics of Zosyn, azithromycin initiated. 11/28/2020 maintained on antibiotics, steroids, IV fluid hydration and BiPAP overnight. Shortness of breath improved, O2 weaned down to 2 L nasal cannula maintaining O2 sats in the high 90s. Chest x-ray reporting no significant change, possible acute infiltrate right lower lung. Lactic acid down to 2. Afebrile, T-max 99.1, WBC down to 11.9. Hemoglobin 8.3, platelets 143. Sodium 134, potassium 4.3, BUN 20, creatinine 0.39. Blood sugars controlled. Denies chest pain, palpitations. 12/01/2020 Yesterday's chest x-ray reporting her worsening oxygen increased up to 10 L high flow nasal cannula. Antibiotics adjusted to Zosyn with vancomycin . Chest x-ray today reporting similar. Oxygen requirements decreased 6 L high flow, maintaining O2 sats in the low to high 90s. This morning having short bursts of paroxysmal atrial fibrillation with heart rates up into the 170s with PVCs. Denies chest pain, palpitations. EKG, troponin, magnesium ordered. Creatinine 0.5. Afebrile, WBC. Labs pending. 12/02/2020 oxygen requirement currently up to 10 L high flow, maintaining O2 sat 100% which can be weaned down. Yesterday patient expressed that he is tired of being in hospitals and rehab., requesting to go home on hospice. Hospice consult initiated. Patient and discussed plan with hospice team. Patient will be discharged home tomorrow with hospice. Denies any chest pain, palpitations. Patient will be discharged home with hospice today. Prognosis guarded. The impression and plan of care has been dictated as directed. : I performed a history and examination of this patient, discussed the same with the dictator. I agree with the dictator's note ,documented as a scribe. Any additional findings or plans will be noted. Patient Condition at Discharge: Stable Plan - Discharge Summary Discharge Rx Participant: No New Discharge Prescriptions: New Amoxic-Pot Clav 875-125Mg [Augmentin 875-125] 1 tab PO Q12HR 7 Days #14 tab guaiFENesin-DM 600/30MG [Mucinex Dm] 1 each PO Q12HR tab.er.12h atenoloL [Tenormin] 25 mg PO DAILY tab Continue Omeprazole 20 mg PO BID@0800,1700 Vitamin B Complex 1 cap PO DAILY Petrolatum, White [Aquaphor] 1 applic TOPICAL DAILY PRN applic PRN Reason: Dry Skin Tiotropium 2.5 Mcg/Puff [Spiriva Respimat 2.5 Mcg] 2 puff INHALATION RT-DAILY puff Diclofenac Sodium Gel [Voltaren Gel] 2 gm TOPICAL QID PRN tube PRN Reason: Pain/Discomfort Rivaroxaban [Xarelto] 15 mg PO BID-W/MEALS tab predniSONE 20 mg PO DAILY #0 Lactobacillus Acidophilus [Acidophilus] 1 tab PO HS Lactose-Reduced Food [Ensure Plus] 240 ml PO BID Fluticasone/Vilanterol [Breo Ellipta 200-25 Mcg INH] 1 puff INHALATION RT- DAILY@1700 Acetaminophen Tab [Tylenol] 650 mg PO Q4HR PRN tab PRN Reason: Fever And/Or Mild Pain Albuterol Inhaler [Ventolin Hfa Inhaler] 2 puff INHALATION RT-QID puff Furosemide [Lasix] 20 mg PO DAILY@0800 Multivits,Th W-Ca,Fe,Oth Min [Therapeutic M] 1 tab PO DAILY Albuterol Inhaler [Ventolin Hfa Inhaler] 2 puff INHALATION RT-Q4H PRN PRN Reason: Shortness Of Breath Or Wheezing Discontinued Aspirin EC [Ecotrin Low Dose] 81 mg PO HS atenoloL [Atenolol] 25 mg PO Q48H Discharge Medication List Omeprazole 20 mg PO BID@0800,1700 06/13/19 [History] Vitamin B Complex 1 cap PO DAILY 06/13/19 [History] Fluticasone/Vilanterol [Breo Ellipta 200-25 Mcg INH] 1 puff INHALATION RT- DAILY@1700 11/10/20 [History] Acetaminophen Tab [Tylenol] 650 mg PO Q4HR PRN tab 11/19/20 [Rx] Albuterol Inhaler [Ventolin Hfa Inhaler] 2 puff INHALATION RT-QID puff 11/19/20 [Rx] Diclofenac Sodium Gel [Voltaren Gel] 2 gm TOPICAL QID PRN tube 11/19/20 [Rx] Petrolatum, White [Aquaphor] 1 applic TOPICAL DAILY PRN applic 11/19/20 [Rx] Rivaroxaban [Xarelto] 15 mg PO BID-W/MEALS tab 11/19/20 [Rx] Tiotropium 2.5 Mcg/Puff [Spiriva Respimat 2.5 Mcg] 2 puff INHALATION RT-DAILY puff 11/19/20 [Rx] predniSONE 20 mg PO DAILY #0 11/19/20 [Rx] Albuterol Inhaler [Ventolin Hfa Inhaler] 2 puff INHALATION RT-Q4H PRN 11/27/20 [History] Furosemide [Lasix] 20 mg PO DAILY@0800 11/27/20 [History] Lactobacillus Acidophilus [Acidophilus] 1 tab PO HS 11/27/20 [History] Lactose-Reduced Food [Ensure Plus] 240 ml PO BID 11/27/20 [History] Multivits,Th W-Ca,Fe,Oth Min [Therapeutic M] 1 tab PO DAILY 11/27/20 [History] Amoxic-Pot Clav 875-125Mg [Augmentin 875-125] 1 tab PO Q12HR 7 Days #14 tab 12/03/20 [Rx] atenoloL [Tenormin] 25 mg PO DAILY tab 12/03/20 [Rx] guaiFENesin-DM 600/30MG [Mucinex Dm] 1 each PO Q12HR tab.er.12h 12/03/20 [Rx] Follow up Appointment(s)/Referral(s): Brendan Chan MD [Primary Care Provider] - As Needed Activity/Diet/Wound Care/Special Instructions: home with hospice Discharge Disposition: HOME WITH HOSPICE
[2020-12-03 11:58] LABS: Glucose,Whole Blood 121 mg/dL (75-99)
--- NOTE | 2020-12-03 13:58 | P.PN ---
Subjective Progress Note Date: 12/03/20 11/29/2020, the patient is resting comfortably on 8 L of oxygen by nasal cannula. He has no complaints. Overnight he uses the BiPAP. He is also on IV fluids running at 130 mL an hour. He is afebrile. Pulse ox is around 90%. White cell count from yesterday was down to 11.9 and all of labs are still p ending from today. Sputum cultures still pending. Blood cultures been negative. He remains on steroids. He remains on bronchodilators. He remains on Zosyn. He remains on Xarelto 50 mg by mouth twice a day. Oral intake is quite diminished. Using incentive spirometer. 11/30/2020, the patient is being seen in follow-up. Patient was admitted intensive care unit for right lung pneumonia, sepsis, COPD exacerbation. As stated earlier, he has advanced COPD and chronic hypoxic respiratory failure. On today's evaluation, he is still requiring oxygen somewhere between 8 and a liters high flow. His pulse ox currently is around 91%. Overnight, he is utilizing the BiPAP. He feels well despite his high oxygen requirements. He is struggling more with his breathing on today's evaluation. He has a congested cough. He is trying to bring up some sputum out. A repeat chest x-ray was done today and compared to the earlier chest x-rays, there is still a right lower lobe consolidation with some interval worsening. There may be also some volume loss in the right lower lobe. Afebrile. His white cell count from today is still pending. Note that his 's a with essentially dropping. Nevertheless, he has worsening in the right lower lobe consolidation. Antibiotic coverage remains a combination of Zosyn and Zithromax. Morbid concerned about his progression, the one that was seen on today's chest x-ray. He is obviously more struggling with his breathing. He has a congested cough, unable to bring up much sputum. Unable to utilize the incentive spirometer effectively. Note that he has end-stage lung disease and COPD as stated earlier. Reevaluated today on 12/02/19, patient is now on the regular medical floor, he is being treated for right lung pneumonia. Sepsis, COPD exacerbation. Patient is on 6 L nasal cannula at present, and his O2 saturation is 96%. He is afebrile, hemodynamically stable blood pressure is 126/69, WBC count is 10.2 hemoglobin is 7.2. Electric lites are normal renal profile is normal troponin is less than 0.012. Chest x-ray continues right lower lobe (airspace disease. Clinically however the patient seems to be better than expected and does not seem to be in any distress. On 12/02/2020 patient seen in follow-up on medical surgical floor, appears very weak, no acute distress, he continues to require high flow oxygen, currently at 10 L which can probably be weaned down because his pulse ox is 99-100%, he is afebrile, hemodynamically he remains stable. Last chest x-ray from yesterday showed bilateral airspace disease the background of emphysematous changes. Today's labs have been reviewed showing white blood cell count of 9.9, h emoglobin is 7.3, creatinine is 0.4, he continues on Solu-Medrol 60 g every 12 hours, and continues on Zosyn and vancomycin. His sputum culture only showed Alba albicans, blood cultures show no growth. He went into A. fib with RVR, currently appears to be in sinus, cardiology consultation was obtained, his rate is currently controlled, he remains on atenolol 25 mg daily, and he is on Xarelto 15 mg twice daily for history of DVT. The patient is seen today 12/03/2020 in follow-up on the regular medical floor. He remains awake. Alert. Quite weak and debilitated. He is maintaining O2 sat urations up to 100% on 10 L high flow nasal cannula. Afebrile. Hemodynamically stable. Sputum culture positive for Alba only. Creatinine 0.41. Glucose 121. He is continued on Symbicort, Spiriva, albuterol, Mucinex. He remains on antibiotics in the form of Zosyn, prednisone taper, Xarelto. Objective - Vital Signs Vital signs: Vital Signs Temp 97.4 F L 12/03/20 08:00 Pulse 62 12/03/20 08:00 Resp 20 12/03/20 08:00 BP 123/81 12/03/20 08:00 Pulse Ox 100 12/03/20 08:00 Intake & Output 12/02/20 12/03/20 12/03/20 18:59 06:59 18:59 Weight 67.5 kg Other: Voiding Method Urinal Urinal Diaper Diaper # Voids 3 3 # Bowel Movements 3 1 - Exam GENERAL EXAM: Alert, very pleasant, frail, debilitated, 75-year-old male,on 10 L of oxygen pulse ox of 99 -100%, comfortable in no apparent distress. HEAD: Normocephalic/atraumatic. EYES: Normal reaction of pupils, equal size. Conjunctiva pink, sclera white. NOSE: Clear with pink turbinates. THROAT: No erythema or exudates. NECK: No masses, no JVD, no thyroid enlargement, no adenopathy. CHEST: No chest wall deformity. Symmetrical expansion. LUNGS: Equal air entry with faint crackles in the posterior bases. CVS: Regular rate and rhythm, normal S1 and S2, no gallops, no murmurs, no rubs ABDOMEN: Soft, nontender. No hepatosplenomegaly, normal bowel sounds, no guarding or rigidity. EXTREMITIES: No clubbing, no edema, no cyanosis, 2+ pulses and upper and lower extremities. MUSCULOSKELETAL: Muscle strength and tone normal. SPINE: No scoliosis or deformity SKIN: No rashes CENTRAL NERVOUS SYSTEM: Alert and oriented -3. No focal deficits, tone is normal in all 4 extremities. PSYCHIATRIC: Alert and oriented -3. Appropriate affect. Intact judgment and insight. - Labs CBC & Chem 7: 12/02/20 09:07 12/03/20 06:08 Labs: Abnormal Lab Results - Last 24 Hours (Table) 12/02/20 12/02/20 12/03/20 Range/Units 16:21 20:15 06:08 Creatinine 0.41 L (0.66-1.25) mg/dL POC Glucose (mg/dL) 156 H 156 H (75-99) mg/dL 12/03/20 Range/Units 11:56 Creatinine (0.66-1.25) mg/dL POC Glucose (mg/dL) 121 H (75-99) mg/dL Microbiology - Last 24 Hours (Table) 11/27/20 14:00 Blood Culture - Preliminary Blood No Growth after 120 hours 11/27/20 13:50 Blood Culture - Preliminary Blood No Growth after 120 hours 11/30/20 10:00 Gram Stain - Final Sputum Sputum Culture - Final Alba albicans Assessment and Plan Assessment: 1 Acute on chronic hypoxic respiratory failure secondary to right lower lobe pneumonia likely healthcare acquired. Remains on 10 L high flow nasal cannula. 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 fib with RVR, currently the rate is controlled, cardiology is following 5 Coronary artery disease to previous stenting 6 Dyslipidemia 7 Benign essential hypertension 8 History of osteoporosis 9 Chronic compression fracture of lumbosacral spine 10 Recurrent pneumonia 11 Chronic medical debility Plan: The patient was seen and evaluated by Dr. Martin The plan now is probable home with hospice We will see as needed I, the cosigning physician, performed a history & physical examination of the patient. Lungs sounds faint crackles in the posterior bases. Maintaining good O2 saturations in the upper 90s on 10 L high flow nasal cannula. I discussed the assessment and plan of care with my nurse practitioner, Mora Gold. I attest to the above note as dictated by her.
[2020-12-03] MEDS ORDERED: MORPHINE SULFATE 2 MG/ML SYRINGE IVP STA (15:24)
[2020-12-03] MEDS ORDERED: MORPHINE CONC SOLN 10mg/0.5mL ORAL SYRG PO ONE (15:26)
[2020-12-03] MEDS ORDERED: LORazepam 0.5 MG TAB SUBLINGUAL ONE (15:26)
== END 2020-12-03 15:16 | disposition hospice, home (50) | DRG 871 ==
LOC: EC 11:46 → 2SICU 14:02 → 3SCARD 11-28 15:04 → 4SSUR 12-01 22:08
PROVIDERS: ADMIT Family Medicine; ATTEND Family Medicine
PROC: 5A09457 Assistance with Respiratory Ventilation, 24-96 Consecutive Hours, Continuous Positive Airway Pressure (ICD-10-PCS; principal; 2020-11-27)
DX: A41.9 Sepsis, unspecified organism (principal); J15.0 Pneumonia due to Klebsiella pneumoniae; J96.21 Acute and chronic respiratory failure with hypoxia; J91.8 Pleural effusion in other conditions classified elsewhere; I82.403 Acute embolism and thrombosis of unspecified deep veins of lower extremity, bilateral; E44.0 Moderate protein-calorie malnutrition; E87.2 Acidosis; R64 Cachexia; R04.2 Hemoptysis; I27.20 Pulmonary hypertension, unspecified; I95.9 Hypotension, unspecified; I71.2 Thoracic aortic aneurysm, without rupture; E88.01 Alpha-1-antitrypsin deficiency; I48.0 Paroxysmal atrial fibrillation; J43.9 Emphysema, unspecified; Z66 Do not resuscitate; Z20.822 Contact with and (suspected) exposure to COVID-19; I10 Essential (primary) hypertension; E86.0 Dehydration; R13.10 Dysphagia, unspecified; E78.5 Hyperlipidemia, unspecified; M81.0 Age-related osteoporosis without current pathological fracture; I25.10 Atherosclerotic heart disease of native coronary artery without angina pectoris; K21.9 Gastro-esophageal reflux disease without esophagitis; I44.4 Left anterior fascicular block; M48.57XD Collapsed vertebra, not elsewhere classified, lumbosacral region, subsequent encounter for fracture with routine healing; M48.55XD Collapsed vertebra, not elsewhere classified, thoracolumbar region, subsequent encounter for fracture with routine healing; M19.90 Unspecified osteoarthritis, unspecified site; Z68.20 Body mass index [BMI] 20.0-20.9, adult; Z99.81 Dependence on supplemental oxygen; Z79.82 Long term (current) use of aspirin; Z79.51 Long term (current) use of inhaled steroids; Z79.01 Long term (current) use of anticoagulants; Z79.52 Long term (current) use of systemic steroids; Z79.899 Other long term (current) drug therapy; Z87.01 Personal history of pneumonia (recurrent); Z85.828 Personal history of other malignant neoplasm of skin; Z90.89 Acquired absence of other organs; Z95.5 Presence of coronary angioplasty implant and graft; Z90.49 Acquired absence of other specified parts of digestive tract; Z87.19 Personal history of other diseases of the digestive system; Z87.891 Personal history of nicotine dependence; Z87.39 Personal history of other diseases of the musculoskeletal system and connective tissue; Z86.79 Personal history of other diseases of the circulatory system; Z98.890 Other specified postprocedural states; Z71.3 Dietary counseling and surveillance; Z80.43 Family history of malignant neoplasm of testis; Z80.8 Family history of malignant neoplasm of other organs or systems
CPT/HCPCS: 36415; 71045; 80048; 80053; 80202; 82565; 82728; 83605; 83615; 83735; 83880; 84145; 84443; 84484; 85025; 85027; 85610; 85730; 86140; 87040; 87070; 87205; 87635; 93005; 94640; 94660; 94760; 99291